=== PATIENT | female | born 1995 | race African-American/Black ===

== ENCOUNTER 2018-01-29 22:42 | Emergency (ER) | payer OTHER ==
[2018-01-29] MEDS ORDERED: ONDANSETRON 4 MG/2 ML VIAL ONE (23:18)
[2018-01-29] MEDS ORDERED: NA CHLORIDE 0.9% 1,000 ML ONE (23:18)
[2018-01-29] MEDS ORDERED: METOCLOPRAMIDE 10 MG/2mL INJ ONE (23:18)
[2018-01-29 23:33] LABS: Absolute Lymphocytes (CBC) 0.4 K/uL (0.7-4.9); Absolute Monocytes 0.4 K/uL (0.1-1.3); Absolute Neutrophil 7.4 K/uL (1.8-8.0); Basophils % 0.2 % (0-1.3); Eosinophils % 0.5 % (0-4.4); Hematocrit 34.1 % (36.0-45.0); Lymphocytes % 5.1 % (15.3-44.8); MCH 22.1 pg (27.0-35.0); MCV 69.9 fL (80-100); MPV 8.5 fL (7.6-11.3); RBC Red Blood Cell Count 4.87 M/uL (3.86-4.86)
[2018-01-29 23:48] LABS: Urine Blood NEGATIVE (NEG); Urine Glucose NEGATIVE (NEG); Urine Protein 1+ (NEG)
[2018-01-29 23:50] LABS: ALT/SGPT 16 U/L (12-78); AST/SGOT 16 U/L (15-37); Albumin 3.7 g/dL (3.4-5.0); Alkaline Phosphatase 82 U/L (45-117); Amylase Level 62 U/L (25-115); BUN Blood Urea Nitrogen 18 mg/dL (7-18); Bicarbonate 26 mmol/L (21-32); Bilirubin Direct < 0.1 mg/dL (0-0.2); Bilirubin Total 0.5 mg/dL (0.2-1.0); Glucose Level 108 mg/dL (74-106); Lipase 69 U/L (73-393); Potassium 3.1 mmol/L (3.5-5.1); Protein, Total 8.1 g/dL (6.4-8.2); Sodium Level 138 mmol/L (136-145)
[2018-01-30 00:20] LABS: Urine Bacteria <20 /HPF (<20); Urine Culture Reflex Order NOT NEEDED; Urine RBC <5 /HPF (NONE SEEN)
--- NOTE | 2018-01-30 00:27 | ER ---
Nurse's Notes [facility] Name: Cheyanne Lopes Age: 22 yrs Sex: Female : 1995 Arrival Date: 01/29/2018 Time: 22:48 Bed 20 Private MD: Diagnosis: Vomiting, unspecified;Diarrhea, unspecified;Abdominal tenderness;Fever, unspecified Presentation: 01/29 23:07 Presenting complaint: Patient states: I BEEN THROWING UP, FEVER, POOPING, EVERYTHING, bp FOR THREE DAYS. Transition of care: patient was not received from another setting of care. Onset of symptoms is unknown. Risk Assessment: Do you want to hurt yourself or someone else? Patient reports no desire to harm self or others. Initial Sepsis Screen: Does the patient meet any 2 criteria? HR > 90 bpm. No. Patient's initial sepsis screen is negative. Does the patient have a suspected source of infection? No. Patient's initial sepsis screen is negative. Care prior to arrival: None. 23:07 Method Of Arrival: Ambulatory bp 23:07 Acuity: GERI 3 bp Triage Assessment: 23:09 General: Appears distressed, comfortable, ill, slender, Behavior is calm, cooperative, bp appropriate for age. Pain: Complains of pain in abdomen. EENT: No deficits noted. Neuro: Level of Consciousness is awake, alert, obeys commands, Oriented to person, place, time, situation, Appropriate for age. Cardiovascular: No deficits noted. Respiratory: Airway is patent Respiratory effort is even, unlabored, Respiratory pattern is regular, symmetrical. GI: Reports diarrhea, nausea, vomiting. : No signs and/or symptoms were reported regarding the genitourinary system. Derm: No deficits noted. Musculoskeletal: Circulation, motion, and sensation intact. Range of motion: intact in all extremities. 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 - Social history:: Smoking status: unknown. - Ebola Screening: : Patient negative for fever greater than or equal to 101.5 degrees Fahrenheit, and additional compatible Ebola Virus Disease symptoms Patient denies exposure to infectious person Patient denies travel to an Ebola-affected area in the 21 days before illness onset No symptoms or risks identified at this time. - Family history:: not pertinent. Screenin:13 Abuse screen: Denies threats or abuse. Denies injuries from another. Nutritional bp screening: No deficits noted. Tuberculosis screening: No symptoms or risk factors identified. Fall Risk None identified. Assessment: 23:13 General: SEE TRIAGE NOTE. bp 01/30 01:16 Reassessment: PT D/C HOME AMBULATORY WITH FAMILY, DX WITH NONSPECIFIC NAUSEA AND bp VOMITING. Vital Signs: 01/29 23:09 BP 125 / 58; Pulse 100; Resp 16; Temp 100.2; Pulse Ox 99% ; Weight 74.84 kg; Height 5 bp ft. 6 in. (167.64 cm); 01/30 01:15 BP 98 / 57; Pulse 97; Resp 16; Pulse Ox 100% ; bp 01/29 23:09 Body Mass Index 26.63 (74.84 kg, 167.64 cm) bp ED Course: 01/29 22:48 Patient arrived in ED. es 22:52 Zuhair Perdue MD is Attending Physician. nicole 22:55 Jett Yuan, RN is Primary Nurse. bp 23:08 Triage completed. bp 23:09 Arm band placed on. bp 23:13 Patient has correct armband on for positive identification. Bed in low position. Call bp light in reach. Side rails up X2. Adult w/ patient. 23:24 Inserted saline lock: 20 gauge in right antecubital area, using aseptic technique. bp Blood collected. 01/30 01:16 No provider procedures requiring assistance completed. IV discontinued, intact, bp bleeding controlled, No redness/swelling at site. Pressure dressing applied. Administered Medications: 01/29 23:23 Drug: NS 0.9% 1000 ml Route: IV; Rate: 1 bolus; Site: right antecubital; bp 23:24 Drug: Zofran 4 mg Route: IVP; Site: right antecubital; bp 01/30 00:24 Follow up: Response: Marked relief of symptoms bp 01/29 23:24 Drug: Reglan 10 mg Route: IVP; Site: right antecubital; bp 01/30 00:26 Follow up: Response: Nausea is decreased bp 00:41 Drug: NS 0.9% 1000 ml Route: IV; Rate: 1 bolus; Site: right antecubital; bp 01:17 Follow up: IV Status: Completed infusion; IV Intake: 1000ml bp 00:41 Drug: Tylenol 650 mg Route: PO; bp 01:17 Follow up: Response: No adverse reaction bp 00:42 Drug: Cipro 400 mg Volume: 200 ml; Route: IVPB; Infused Over: 60 mins; Site: right bp antecubital; 01:17 Follow up: IV Status: Completed infusion; IV Intake: 200ml bp Intake: 01:17 IV: 1000ml; Total: 1000ml. bp 01:17 IV: 200ml; Total: 1200ml. bp Outcome: 00:26 Discharge ordered by . nicole 01:20 Discharged to home ambulatory, with family. bp 01:20 Condition: stable 01:20 Discharge instructions given to patient, Instructed on discharge instructions, follow up and referral plans. medication usage, Demonstrated understanding of instructions, follow-up care, medications, Prescriptions given X 2. 01:20 Patient left the ED. bp Signatures: Zuhair Perdue MD MD cha Salyer, Edna es Peltier, Brian, RN RN bp
--- NOTE | 2018-01-30 00:27 | EDPHYS ---
Physician Documentation [facility] Name: Cheyanne Lopes Age: 22 yrs Sex: Female : 1995 Arrival Date: 01/29/2018 Time: 22:48 Bed 20 Private MD: ED Physician Zuhair Perdue HPI: 01/30 00:20 This 22 yrs old Black Female presents to ER via Ambulatory with complaints of Diarrhea, nicole Vomiting, Fever. 00:20 The patient presents to the emergency department with nausea, vomiting, diarrhea, nicole abdominal pain, of the right upper quadrant, left upper quadrant, right lower quadrant and left lower quadrant. Onset: The symptoms/episode began/occurred 2 day(s) ago. Possible causes: antibiotics. Possible causes: unknown. The symptoms are aggravated by food , The symptoms are alleviated by remaining still. Severity of symptoms: At their worst the symptoms were mild moderate in the emergency department the symptoms are unchanged. The patient has not experienced similar symptoms in the past. 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 - Social history:: Smoking status: unknown. - Ebola Screening: : Patient negative for fever greater than or equal to 101.5 degrees Fahrenheit, and additional compatible Ebola Virus Disease symptoms Patient denies exposure to infectious person Patient denies travel to an Ebola-affected area in the 21 days before illness onset No symptoms or risks identified at this time. - Family history:: not pertinent. ROS: 01/30 00:20 Constitutional: Negative for fever, chills, and weight loss, Eyes: Negative for injury, nicole pain, redness, and discharge, ENT: Negative for injury, pain, and discharge, Neck: Negative for injury, pain, and swelling, Cardiovascular: Negative for chest pain, palpitations, and edema, Respiratory: Negative for shortness of breath, cough, wheezing, and pleuritic chest pain, Back: Negative for injury and pain, : Negative for injury, bleeding, discharge, and swelling, MS/Extremity: Negative for injury and deformity, Skin: Negative for injury, rash, and discoloration, Neuro: Negative for headache, weakness, numbness, tingling, and seizure, Psych: Negative for depression, anxiety, suicide ideation, homicidal ideation, and hallucinations, Allergy/Immunology: Negative for hives, rash, and allergies, Endocrine: Negative for neck swelling, polydipsia, polyuria, polyphagia, and marked weight changes, Hematologic/Lymphatic: Negative for swollen nodes, abnormal bleeding, and unusual bruising. Abdomen/GI: Positive for abdominal pain, nausea and vomiting, nausea, vomiting, diarrhea, abdominal cramps, of the right upper quadrant, left upper quadrant, right lower quadrant and left lower quadrant. Exam: 00:20 Constitutional: This is a well developed, well nourished patient who is awake, alert, nicole and in no acute distress. Head/Face: Normocephalic, atraumatic. Eyes: Pupils equal round and reactive to light, extra-ocular motions intact. Lids and lashes normal. Conjunctiva and sclera are non-icteric and not injected. Cornea within normal limits. Periorbital areas with no swelling, redness, or edema. ENT: Nares patent. No nasal discharge, no septal abnormalities noted. Tympanic membranes are normal and external auditory canals are clear. Oropharynx with no redness, swelling, or masses, exudates, or evidence of obstruction, uvula midline. Mucous membranes moist. Neck: Trachea midline, no thyromegaly or masses palpated, and no cervical lymphadenopathy. Supple, full range of motion without nuchal rigidity, or vertebral point tenderness. No Meningismus. Chest/axilla: Normal chest wall appearance and motion. Nontender with no deformity. No lesions are appreciated. Cardiovascular: Regular rate and rhythm with a normal S1 and S2. No gallops, murmurs, or rubs. Normal PMI, no JVD. No pulse deficits. Respiratory: Lungs have equal breath sounds bilaterally, clear to auscultation and percussion. No rales, rhonchi or wheezes noted. No increased work of breathing, no retractions or nasal flaring. Back: No spinal tenderness. No costovertebral tenderness. Full range of motion. Female : Normal external genitalia. Skin: Warm, dry with normal turgor. Normal color with no rashes, no lesions, and no evidence of cellulitis. MS/ Extremity: Pulses equal, no cyanosis. Neurovascular intact. Full, normal range of motion. Neuro: Awake and alert, GCS 15, oriented to person, place, time, and situation. Cranial nerves II-XII grossly intact. Motor strength 5/5 in all extremities. Sensory grossly intact. Cerebellar exam normal. Normal gait. Psych: Awake, alert, with orientation to person, place and time. Behavior, mood, and affect are within normal limits. 00:20 Abdomen/GI: Inspection: abdomen appears normal, Bowel sounds: hyperactive, Palpation: mild abdominal tenderness, in all quadrants, Liver: no appreciated palpable abnormalities, Hernia: not appreciated. Vital Signs: 01/29 23:09 BP 125 / 58; Pulse 100; Resp 16; Temp 100.2; Pulse Ox 99% ; Weight 74.84 kg; Height 5 bp ft. 6 in. (167.64 cm); 01/30 01:15 BP 98 / 57; Pulse 97; Resp 16; Pulse Ox 100% ; bp 01/29 23:09 Body Mass Index 26.63 (74.84 kg, 167.64 cm) bp MDM: 01/29 22:52 Patient medically screened. [facility] 01/30 00:23 Data reviewed: vital signs, nurses notes, lab test result(s), CBC, electrolytes, [facility] hepatic panel, urinalysis. 01/29 23:12 Order name: Amylase, Serum; Complete Time: 00:18 bp 01/29 23:12 Order name: Basic Metabolic Panel; Complete Time: 00:18 bp 01/29 23:12 Order name: CBC with Diff bp 01/29 23:12 Order name: Creatinine for Radiology; Complete Time: 00:18 bp 01/29 23:12 Order name: Hepatic Function; Complete Time: 00:18 bp 01/29 23:12 Order name: Lipase; Complete Time: 00:18 bp 01/29 23:12 Order name: Urine Microscopic Only bp 01/29 23:36 Order name: Urine Dipstick--Ancillary (enter results); Complete Time: 00:18 eb 01/29 23:36 Order name: Urine --Ancillary (enter results); Complete Time: 00:18 eb 01/30 01:16 Order name: CBC Smear Scan EDMS 01/29 23:12 Order name: Urine Test (obtain specimen); Complete Time: 23:24 bp 01/29 23:12 Order name: IV Saline Lock; Complete Time: 23:24 bp 01/29 23:12 Order name: Labs collected and sent; Complete Time: 23:24 bp 01/29 23:12 Order name: Urine Dipstick-Ancillary (obtain specimen); Complete Time: :24 bp 01/30 00:24 Order name: PO challenge: po juice; Complete Time: 00:42 nicole Administered Medications: 01/29 23:23 Drug: NS 0.9% 1000 ml Route: IV; Rate: 1 bolus; Site: right antecubital; bp 23:24 Drug: Zofran 4 mg Route: IVP; Site: right antecubital; bp 01/30 00:24 Follow up: Response: Marked relief of symptoms bp 01/29 23:24 Drug: Reglan 10 mg Route: IVP; Site: right antecubital; bp 01/30 00:26 Follow up: Response: Nausea is decreased bp 00:41 Drug: NS 0.9% 1000 ml Route: IV; Rate: 1 bolus; Site: right antecubital; bp 01:17 Follow up: IV Status: Completed infusion; IV Intake: 1000ml bp 00:41 Drug: Tylenol 650 mg Route: PO; bp 01:17 Follow up: Response: No adverse reaction bp 00:42 Drug: Cipro 400 mg Volume: 200 ml; Route: IVPB; Infused Over: 60 mins; Site: right bp antecubital; 01:17 Follow up: IV Status: Completed infusion; IV Intake: 200ml bp Disposition: 01/30/18 00:26 Discharged to Home. Impression: Vomiting, unspecified, Diarrhea, unspecified, Abdominal tenderness, Fever, unspecified. - Condition is Stable. - Discharge Instructions: Abdominal Pain, Adult, Food Choices to Help Relieve Diarrhea, Adult, Diarrhea, Fever, Adult, Nausea and Vomiting, Nausea and Vomiting, [id number], Abdominal Pain, Adult, [id number], Fever, Adult, [id number]. - Prescriptions for Zofran 4 mg Oral Tablet - take 1 tablet by ORAL route every 12 hours As needed; 14 tablet. Cipro 500 mg Oral Tablet - take 1 tablet by ORAL route every 12 hours for 5 days; 10 tablet. - Medication Reconciliation Form, Thank You Letter, Antibiotic Education, Prescription Opioid Use, Work release form form. - Follow up: Private Physician; When: 2 - 3 days; Reason: Recheck today's complaints, Continuance of care, Re-evaluation by your physician. - Problem is new. - Symptoms have improved. Signatures: Dispatcher [employer] EDZuhair Taylor MD MD cha Peltier, Brian, RN RN bp Corrections: (The following items were deleted from the chart) 01:20 00:26 01/30/2018 00:26 Discharged to Home. Impression: Vomiting, unspecified; Diarrhea, bp unspecified; Abdominal tenderness; Fever, unspecified. Condition is Stable. Forms are Medication Reconciliation Form, Thank You Letter, Antibiotic Education, Prescription Opioid Use. Follow up: Private Physician; When: 2 - 3 days; Reason: Recheck today's complaints, Continuance of care, Re-evaluation by your physician. Problem is new. Symptoms have improved. nicole
[2018-01-30] MEDS ORDERED: CIPROFLOXACIN 400mg IV 400 MG/200 ML BAG IV ONE (00:35)
[2018-01-30] MEDS ORDERED: ACETAMINOPHEN 325 MG TABLET ONE (00:35)
[2018-01-30] MEDS ORDERED: NA CHLORIDE 0.9% 1,000 ML ONE (00:36)
[2018-01-30 01:15] LABS: Blood Morphology Comment NOTED (NOT SEEN); Hypochromasia 1+; Platelet Estimate ADEQ; Urine White Blood Cell Casts OK
[2018-01-30 03:19] VITALS: TEMP 100.2
[2018-01-30 03:20] VITALS: BP 98/57; O2SAT 100
== END 2018-01-30 01:20 | disposition home or self-care (01) ==
LOC: ER 22:42
DX: R11.10 Vomiting, unspecified (principal); R19.7 Diarrhea, unspecified; R50.9 Fever, unspecified; R10.819 Abdominal tenderness, unspecified site
CPT/HCPCS: 36415; 80048; 80076; 81003; 81015; 81025; 82150; 83690; 85025; 96361; 96365; 96375; 99284; J0744; J2405; J2765; J7030

== ENCOUNTER 2018-10-19 12:29 | Emergency (ER) | payer SELFPAY ==
--- NOTE | 2018-10-19 14:31 | ER ---
Nurse's Notes [facility] Name: Cheyanne Lopes Age: 23 yrs Sex: Female : 1995 Arrival Date: 10/19/2018 Time: 12:34 Bed 13 Private MD: None, None Diagnosis: Otitis media, unspecified, left ear;Influenza due to identified novel influenza A virus Presentation: 10/19 12:50 Presenting complaint: Patient states: Fever, body aches, cough, sore throat x 4 days, ph TMAX 101.2, reports being exposed to flu recently, denies N/V/D. Transition of care: patient was not received from another setting of care. Onset of symptoms was October 19, 2018. Risk Assessment: Do you want to hurt yourself or someone else? Patient reports no desire to harm self or others. Initial Sepsis Screen: Does the patient meet any 2 criteria? No. Patient's initial sepsis screen is negative. Does the patient have a suspected source of infection? No. Patient's initial sepsis screen is negative. Care prior to arrival: Medication(s) given: Tylenol, at 1100. 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 - Social history:: Smoking status: Patient/guardian denies using tobacco. - Ebola Screening: : No symptoms or risks identified at this time. Screenin:19 Abuse screen: Denies threats or abuse. Nutritional screening: No deficits noted. tw2 Tuberculosis screening: No symptoms or risk factors identified. Fall Risk None identified. Assessment: 13:20 General: Appears in no apparent distress. Behavior is appropriate for age. Pain: tw2 Complains of pain in right ear and left ear. Neuro: Level of Consciousness is awake, alert, obeys commands, Oriented to person, place, time, situation. Cardiovascular: Capillary refill < 3 seconds Patient's skin is warm and dry. Respiratory: Reports cough that is Airway is patent Respiratory effort is even, unlabored, Respiratory pattern is regular, symmetrical. GI: No signs and/or symptoms were reported involving the gastrointestinal system. : No signs and/or symptoms were reported regarding the genitourinary system. EENT: Reports nasal congestion nasal discharge pain in left ear and right ear. Musculoskeletal: Range of motion: intact in all extremities. 15:06 Reassessment: Patient appears in no apparent distress at this time. No changes from tw2 previously documented assessment. Patient and/or family updated on plan of care and expected duration. Pain level reassessed. Patient is alert, oriented x 3, equal unlabored respirations, skin warm/dry/pink. Vital Signs: 12:52 BP 133 / 75; Pulse 118; Resp 22; Temp 99.6(O); Pulse Ox 100% on R/A; Weight 70.76 kg; ph Height 5 ft. 6 in. (167.64 cm); 14:41 BP 121 / 70; Pulse 134; Resp 17; Temp 99.2; Pulse Ox 100% on R/A; mh5 15:07 Pulse 111; Resp 19; Pulse Ox 100% on R/A; tw2 12:52 Body Mass Index 25.18 (70.76 kg, 167.64 cm) ph ED Course: 12:34 Patient arrived in ED. mr 12:34 None, None is Private Physician. mr 12:47 [facility]ila Bowles [facility]C [facility]. kb 12:47 Zuhair Perdue MD is Attending Physician. kb 12:51 Triage completed. ph 12:52 Arm band placed on. ph 13:15 Joanna Adler, RN is Primary Nurse. tw2 13:19 Bed in low position. Call light in reach. Adult w/ patient. Pulse ox on. NIBP on. tw2 15:07 No provider procedures requiring assistance completed. Patient did not have IV access tw2 during this emergency room visit. Administered Medications: 14:52 Drug: Motrin 600 mg Route: PO; tw2 15:08 Follow up: Response: No adverse reaction tw2 Outcome: 14:30 Discharge ordered by . kb 15:07 Discharged to home ambulatory. tw2 15:07 Condition: stable 15:07 Discharge instructions given to patient, Instructed on discharge instructions, follow up and referral plans. medication usage, Demonstrated understanding of instructions, follow-up care, medications, Prescriptions given X 1. 15:08 Patient left the ED. tw2 Signatures: Tila Bowles, JESE SCOTT-Milvia Tinoco mr Tricia Santos RN RN Joanna Adler RN RN 2 Gwen Smalls [facility]
--- NOTE | 2018-10-19 14:31 | EDPHYS ---
Physician Documentation [facility] Name: Cheyanne Lopes Age: 23 yrs Sex: Female : 1995 Arrival Date: 10/19/2018 Time: 12:34 Bed 13 Private MD: None, None ED Physician Zuhair Perdue HPI: 10/19 14:38 This 23 yrs old Black Female presents to ER via Ambulatory with complaints of Flu kb Symptoms. 14:38 The patient or guardian reports cough, that is intermittent, described as moderate, kb with no sputum, flu symptoms, arthralgias, low-grade fever, myalgias. Onset: The symptoms/episode began/occurred 3 day(s) ago. Severity of symptoms: At their worst the symptoms were moderate, in the emergency department the symptoms are unchanged. Modifying factors: The symptoms are alleviated by nothing, the symptoms are aggravated by nothing. Associated signs and symptoms: Pertinent positives: earache, fever, rhinorrhea, Pertinent negatives: chest pain, diarrhea, nausea, sore throat, vomiting. The patient has not experienced similar symptoms in the past. The patient has not recently seen a physician. HOME HEALTH CLINICAL LIAISON: 12:52 LMP 10/03/2018 ph Historical: - Allergies: 12:52 No Known Allergies; ph - Home Meds: 12:52 Seroquel Oral [Active]; ph - PMHx: 12:52 Depression; ph - PSHx: 12:52 None; ph - Immunization history:: Adult Immunizations unknown. - Social history:: Smoking status: Patient/guardian denies using tobacco. - Ebola Screening: : No symptoms or risks identified at this time. ROS: 14:37 Cardiovascular: Negative for chest pain, palpitations, and edema, Abdomen/GI: Negative kb for abdominal pain, nausea, vomiting, diarrhea, and constipation, Back: Negative for injury and pain, MS/Extremity: Negative for injury and deformity, Skin: Negative for injury, rash, and discoloration, Neuro: Negative for headache, weakness, numbness, tingling, and seizure. 14:37 Constitutional: Positive for body aches, chills, fatigue, fever, malaise, Negative for poor PO intake, weight loss. 14:37 ENT: Positive for ear pain, rhinorrhea, sore throat. 14:37 Respiratory: Positive for cough, Negative for dyspnea on exertion, hemoptysis, orthopnea, pleurisy, shortness of breath, sputum production, wheezing. Exam: 14:36 Constitutional: This is a well developed, well nourished patient who is awake, alert, kb and in no acute distress. Head/Face: Normocephalic, atraumatic. Neck: Trachea midline, no thyromegaly or masses palpated, and no cervical lymphadenopathy. Supple, full range of motion without nuchal rigidity, or vertebral point tenderness. No Meningismus. Chest/axilla: Normal chest wall appearance and motion. Nontender with no deformity. No lesions are appreciated. Cardiovascular: Regular rate and rhythm with a normal S1 and S2. No gallops, murmurs, or rubs. Normal PMI, no JVD. No pulse deficits. Abdomen/GI: Soft, non-tender, with normal bowel sounds. No distension or tympany. No guarding or rebound. No evidence of tenderness throughout. Back: No spinal tenderness. No costovertebral tenderness. Full range of motion. Skin: Warm, dry with normal turgor. Normal color with no rashes, no lesions, and no evidence of cellulitis. MS/ Extremity: Pulses equal, no cyanosis. Neurovascular intact. Full, normal range of motion. Neuro: Awake and alert, GCS 15, oriented to person, place, time, and situation. Cranial nerves II-XII grossly intact. Motor strength 5/5 in all extremities. Sensory grossly intact. Cerebellar exam normal. Normal gait. 14:36 ENT: External ear(s): are unremarkable, Ear canal(s): are normal, TM's: bulging, on the left, erythema, that is moderate, on the left, Nose: is normal, Posterior pharynx: is normal. Vital Signs: 12:52 BP 133 / 75; Pulse 118; Resp 22; Temp 99.6(O); Pulse Ox 100% on R/A; Weight 70.76 kg; ph Height 5 ft. 6 in. (167.64 cm); 14:41 BP 121 / 70; Pulse 134; Resp 17; Temp 99.2; Pulse Ox 100% on R/A; mh5 15:07 Pulse 111; Resp 19; Pulse Ox 100% on R/A; tw2 12:52 Body Mass Index 25.18 (70.76 kg, 167.64 cm) ph MDM: 13:15 Patient medically screened. kb 14:29 Data reviewed: vital signs, nurses notes. Data interpreted: Pulse oximetry: on room air kb is 100 %. Interpretation: normal. Counseling: I had a detailed discussion with the patient and/or guardian regarding: the historical points, exam findings, and any diagnostic results supporting the discharge/admit diagnosis, lab results, the need for outpatient follow up, a family practitioner, to return to the emergency department if symptoms worsen or persist or if there are any questions or concerns that arise at home. 10/19 12:53 Order name: Flu; Complete Time: 14:11 ph 10/19 12:53 Order name: Strep; Complete Time: 14:24 ph 10/19 14:22 Order name: Throat Culture EDMS Administered Medications: 14:52 Drug: Motrin 600 mg Route: PO; tw2 15:08 Follow up: Response: No adverse reaction tw2 Disposition: 10/20 09:37 Co-signature as Attending Physician, Zuhair Perdue MD I agree with the assessment and [facility] plan of care. Disposition: 10/19/18 14:30 Discharged to Home. Impression: Otitis media, unspecified, left ear, Influenza due to identified novel influenza A virus. - Condition is Stable. - Discharge Instructions: Otitis Media, Adult, [id number], Influenza, Adult, [id number]. - Prescriptions for Amoxicillin 875 mg Oral Tablet - take 1 tablet by ORAL route every 12 hours for 10 days; 20 tablet. - Medication Reconciliation Form, Thank You Letter, Antibiotic Education, Prescription Opioid Use, Work release form form. - Follow up: Emergency Department; When: As needed; Reason: Worsening of condition. Follow up: Private Physician; When: 2 - 3 days; Reason: Recheck today's complaints, Continuance of care, Re-evaluation by your physician. Signatures: Dispatcher [employer] EDMS Tila Bowles, Zuhair Mendez MD MD cha Hall, Patricia, RN RN Joanna Adler RN RN tw2 Corrections: (The following items were deleted from the chart) 10/19 15:08 14:30 10/19/2018 14:30 Discharged to Home. Impression: Otitis media, unspecified, left tw2 ear; Influenza due to identified novel influenza A virus. Condition is Stable. Discharge Instructions: Otitis Media, Adult, [id number]. Prescriptions for Amoxicillin 875 mg Oral Tablet - take 1 tablet by ORAL route every 12 hours for 10 days; 20 tablet. and Forms are Work release form, Medication Reconciliation Form, Thank You Letter, Antibiotic Education, Prescription Opioid Use. Follow up: Emergency Department; When: As needed; Reason: Worsening of condition. Follow up: Private Physician; When: 2 - 3 days; Reason: Recheck today's complaints, Continuance of care, Re-evaluation by your physician. kb
[2018-10-19] MEDS ORDERED: IBUPROFEN 400 MG TAB ONE (15:00)
[2018-10-19] MEDS ORDERED: IBUPROFEN 200 MG TAB PO ONE (15:00)
[2018-10-19 15:12] VITALS: O2SAT 100
[2018-10-19 15:13] VITALS: BP 121/70; TEMP 99.2
== END 2018-10-19 15:08 | disposition home or self-care (01) ==
LOC: ER 12:29
DX: H66.92 Otitis media, unspecified, left ear (principal); J10.1 Influenza due to other identified influenza virus with other respiratory manifestations; F32.9 Major depressive disorder, single episode, unspecified
CPT/HCPCS: 87070; 87081; 87804; 99283

== ENCOUNTER 2018-10-22 12:07 | Emergency (ER) | payer SELFPAY ==
[2018-10-22] MEDS ORDERED: OSELTAMIVIR 75 MG CAP ONE (14:48)
[2018-10-22] MEDS ORDERED: AZITHROMYCIN 250 MG TAB ONE (14:49)
[2018-10-22] MEDS ORDERED: ACETAMINOPHEN 325 MG TABLET ONE (14:49)
--- NOTE | 2018-10-22 14:55 | ER ---
Nurse's Notes [facility] Name: Cheyanne Lopes Age: 23 yrs Sex: Female : 1995 Arrival Date: 10/22/2018 Time: 12:08 Bed 26 Private MD: None, None Diagnosis: Influenza due to identified novel influenza A virus;Fever, unspecified;Bronchitis, not specified as acute or chronic Presentation: 10/22 12:17 Presenting complaint: Patient states: I was seen and treated here for the flu, was sg instructed that if I didn't feel any better after a few days to return to the emergency room for re evaluation, pt reports is not feeling better, was started on abx amoxicillin for upper resp infection as well, now has developed severe ear pain in the left ear, right ear hurts as well but left ear is worse. Transition of care: patient was not received from another setting of care. Onset of symptoms was October 22, 2018. Risk Assessment: Do you want to hurt yourself or someone else? Patient reports no desire to harm self or others. Initial Sepsis Screen: Does the patient meet any 2 criteria? No. Patient's initial sepsis screen is negative. Does the patient have a suspected source of infection? No. Patient's initial sepsis screen is negative. Care prior to arrival: None. 12:17 Method Of Arrival: Ambulatory 12:17 Acuity: GERI 4 sg LINE FISHER: 14:00 LMP 10/03/2018 ca1 Historical: - Allergies: 12:19 No Known Allergies; sg - Home Meds: 12:19 Seroquel Oral [Active]; sg - PMHx: 12:19 Depression; sg - PSHx: 12:19 None; sg - Immunization history:: Adult Immunizations up to date. - Social history:: Smoking status: Patient/guardian denies using tobacco. - Ebola Screening: : Patient negative for fever greater than or equal to 101.5 degrees Fahrenheit, and additional compatible Ebola Virus Disease symptoms Patient denies exposure to infectious person Patient denies travel to an Ebola-affected area in the 21 days before illness onset No symptoms or risks identified at this time. - Family history:: not pertinent. Screenin:07 Abuse screen: Denies threats or abuse. Denies injuries from another. Nutritional ca1 screening: No deficits noted. Tuberculosis screening: No symptoms or risk factors identified. Fall Risk None identified. Assessment: 13:07 General: Appears in no apparent distress. comfortable, Behavior is calm, cooperative, ca1 appropriate for age. Pain: Complains of pain in left ear Pain radiates to left side of the face Pain currently is 8 out of 10 on a pain scale. Pain began 1 day ago. Neuro: Level of Consciousness is awake, alert, obeys commands, Oriented to person, place, time, situation. Cardiovascular: Heart tones S1 S2 present Capillary refill < 3 seconds Patient's skin is warm and dry. Respiratory: Reports cough that is productive, Airway is patent Respiratory effort is even, unlabored, Respiratory pattern is regular, symmetrical, Breath sounds are clear bilaterally. GI: No deficits noted. No signs and/or symptoms were reported involving the gastrointestinal system. : No deficits noted. No signs and/or symptoms were reported regarding the genitourinary system. EENT: Tympanic membrane not visualized left ear and right ear Ear canal clear on left ear and right ear Reports nasal congestion nasal discharge that is watery. Derm: Skin is intact, is healthy with good turgor, Skin is pink, warm \T\ dry. Musculoskeletal: Circulation, motion, and sensation intact. Capillary refill < 3 seconds. 14:00 Reassessment: Patient appears in no apparent distress at this time. Patient and/or ca1 family updated on plan of care and expected duration. Pain level reassessed. Patient is alert, oriented x 3, equal unlabored respirations, skin warm/dry/pink. 14:55 Reassessment: Patient appears in no apparent distress at this time. Patient and/or ca1 family updated on plan of care and expected duration. Pain level reassessed. Patient is alert, oriented x 3, equal unlabored respirations, skin warm/dry/pink. Vital Signs: 12:11 BP 127 / 82; Pulse 111; Resp 17; Temp 99.0; Pulse Ox 100% on R/A; Pain 10/10; sg 13:07 BP 117 / 78; Pulse 89; Resp 19; Temp 100.2(O); Pulse Ox 100% ; ca1 14:00 BP 115 / 70; Pulse 86; Resp 19; Pulse Ox 100% on R/A; ca1 14:55 BP 109 / 66; Pulse 81; Resp 19; Pulse Ox 100% on R/A; ca1 15:30 Temp 98.9; ca1 ED Course: 12:08 Patient arrived in ED. dl4 12:08 None, None is Private Physician. dl4 12:17 Arm band placed on. 12:18 Triage completed. 13:03 Zuhair Perdue MD is Attending Physician. [facility] 13:07 Patient has correct armband on for positive identification. Bed in low position. Call ca1 light in reach. Side rails up X2. Pulse ox on. NIBP on. 13:30 Rosa Isela Magaña, RN is Primary Nurse. ca1 15:02 No provider procedures requiring assistance completed. Patient did not have IV access ca1 during this emergency room visit. Administered Medications: 14:41 Drug: Tylenol 650 mg Route: PO; ca1 15:30 Follow up: Temp 98.9; Response: No adverse reaction; Temperature is decreased ca1 14:41 Drug: Tamiflu 75 mg Route: PO; ca1 15:30 Follow up: Response: No adverse reaction ca1 14:41 Drug: Zithromax 500 mg Route: PO; ca1 15:30 Follow up: Response: No adverse reaction ca1 Outcome: 14:54 Discharge ordered by . [facility] 15:02 Discharged to home ambulatory. ca1 15:02 Condition: stable 15:02 Discharge instructions given to patient, Instructed on discharge instructions, follow up and referral plans. medication usage, Demonstrated understanding of instructions, follow-up care, medications, Prescriptions given X 2. 15:05 Patient left the ED. ca1 Signatures: Jonathan Ponce, RN RN Zuhair Perdue MD MD cha Luna, David dl4 Rosa Isela Magaña RN RN ca1
--- NOTE | 2018-10-22 14:55 | EDPHYS ---
Physician Documentation [facility] Name: Cheyanne Lopes Age: 23 yrs Sex: Female : 1995 Arrival Date: 10/22/2018 Time: 12:08 Bed 26 Private MD: None, None ED Physician Zuhair Perdue HPI: 10/22 14:27 This 23 yrs old Black Female presents to ER via Ambulatory with complaints of Flu nicole Symptoms. 14:27 fever cough, flu a 3 days ago. The patient or guardian reports cough, described as nicole mild. Onset: The symptoms/episode began/occurred 3 day(s) ago. Severity of symptoms: At their worst the symptoms were mild, in the emergency department the symptoms are unchanged. Modifying factors: The symptoms are alleviated by nothing, the symptoms are aggravated by nothing. Associated signs and symptoms: The patient has no apparent associated signs or symptoms. The patient has not experienced similar symptoms in the past. 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 - Social history:: Smoking status: Patient/guardian denies using tobacco. - Ebola Screening: : Patient negative for fever greater than or equal to 101.5 degrees Fahrenheit, and additional compatible Ebola Virus Disease symptoms Patient denies exposure to infectious person Patient denies travel to an Ebola-affected area in the 21 days before illness onset No symptoms or risks identified at this time. - Family history:: not pertinent. ROS: 14:27 Constitutional: Negative for fever, chills, and weight loss, Eyes: Negative for injury, nicole pain, redness, and discharge, ENT: Negative for injury, pain, and discharge, Neck: Negative for injury, pain, and swelling, Cardiovascular: Negative for chest pain, palpitations, and edema, Abdomen/GI: Negative for abdominal pain, nausea, vomiting, diarrhea, and constipation, Back: Negative for injury and pain, : Negative for injury, bleeding, discharge, and swelling, MS/Extremity: Negative for injury and deformity, Skin: Negative for injury, rash, and discoloration, Neuro: Negative for headache, weakness, numbness, tingling, and seizure, Psych: Negative for depression, anxiety, suicide ideation, homicidal ideation, and hallucinations, Allergy/Immunology: Negative for hives, rash, and allergies, Endocrine: Negative for neck swelling, polydipsia, polyuria, polyphagia, and marked weight changes, Hematologic/Lymphatic: Negative for swollen nodes, abnormal bleeding, and unusual bruising. 14:27 Respiratory: Positive for cough. Exam: 14:27 Constitutional: This is a well developed, well nourished patient who is awake, alert, nicole and in no acute distress. Head/Face: Normocephalic, atraumatic. Eyes: Pupils equal round and reactive to light, extra-ocular motions intact. Lids and lashes normal. Conjunctiva and sclera are non-icteric and not injected. Cornea within normal limits. Periorbital areas with no swelling, redness, or edema. ENT: Nares patent. No nasal discharge, no septal abnormalities noted. Tympanic membranes are normal and external auditory canals are clear. Oropharynx with no redness, swelling, or masses, exudates, or evidence of obstruction, uvula midline. Mucous membranes moist. Neck: Trachea midline, no thyromegaly or masses palpated, and no cervical lymphadenopathy. Supple, full range of motion without nuchal rigidity, or vertebral point tenderness. No Meningismus. Chest/axilla: Normal chest wall appearance and motion. Nontender with no deformity. No lesions are appreciated. Cardiovascular: Regular rate and rhythm with a normal S1 and S2. No gallops, murmurs, or rubs. Normal PMI, no JVD. No pulse deficits. Respiratory: Lungs have equal breath sounds bilaterally, clear to auscultation and percussion. No rales, rhonchi or wheezes noted. No increased work of breathing, no retractions or nasal flaring. Abdomen/GI: Soft, non-tender, with normal bowel sounds. No distension or tympany. No guarding or rebound. No evidence of tenderness throughout. Back: No spinal tenderness. No costovertebral tenderness. Full range of motion. Skin: Warm, dry with normal turgor. Normal color with no rashes, no lesions, and no evidence of cellulitis. MS/ Extremity: Pulses equal, no cyanosis. Neurovascular intact. Full, normal range of motion. Neuro: Awake and alert, GCS 15, oriented to person, place, time, and situation. Cranial nerves II-XII grossly intact. Motor strength 5/5 in all extremities. Sensory grossly intact. Cerebellar exam normal. Normal gait. Psych: Awake, alert, with orientation to person, place and time. Behavior, mood, and affect are within normal limits. Vital Signs: 12:11 BP 127 / 82; Pulse 111; Resp 17; Temp 99.0; Pulse Ox 100% on R/A; Pain 10/10; sg 13:07 BP 117 / 78; Pulse 89; Resp 19; Temp 100.2(O); Pulse Ox 100% ; ca1 14:00 BP 115 / 70; Pulse 86; Resp 19; Pulse Ox 100% on R/A; ca1 14:55 BP 109 / 66; Pulse 81; Resp 19; Pulse Ox 100% on R/A; ca1 15:30 Temp 98.9; ca1 MDM: 13:03 Patient medically screened. [facility] 10/22 14:33 Order name: PO challenge; Complete Time: 14:41 [facility] Administered Medications: 14:41 Drug: Tylenol 650 mg Route: PO; ca1 15:30 Follow up: Temp 98.9; Response: No adverse reaction; Temperature is decreased ca1 14:41 Drug: Tamiflu 75 mg Route: PO; ca1 15:30 Follow up: Response: No adverse reaction ca1 14:41 Drug: Zithromax 500 mg Route: PO; ca1 15:30 Follow up: Response: No adverse reaction ca1 Disposition: 10/22/18 14:54 Discharged to Home. Impression: Influenza due to identified novel influenza A virus, Fever, unspecified, Bronchitis, not specified as acute or chronic. - Condition is Stable. - Discharge Instructions: Acute Bronchitis, Adult, Influenza, Adult, Upper Respiratory Infection, Adult, Upper Respiratory Infection, Adult, [id number], Influenza, Adult, [id number], Cough, Adult. - Prescriptions for Zithromax Z- Hussain 250 mg Oral Tablet - take 1 tablet by ORAL route as directed for 5 days Day 1 - take two (2) tablets one time. Day 2, 3, 4 , 5 take one (1) tablet once daily.; 6 tablet. Tamiflu 75 mg Oral Capsule - take 1 tablet by ORAL route every 12 hours for 5 days; 10 tablet. - Medication Reconciliation Form, Thank You Letter, Antibiotic Education, Prescription Opioid Use, Work release form form. - Follow up: Private Physician; When: 2 - 3 days; Reason: Recheck today's complaints, Continuance of care, Re-evaluation by your physician. - Problem is new. - Symptoms have improved. Signatures: Dispatcher [employer] EDMS Jonathan Ponce RN RN sg Anderson, Corey, MD MD cha Acob, Cheryl, RN RN ca1 Corrections: (The following items were deleted from the chart) 15:05 14:54 10/22/2018 14:54 Discharged to Home. Impression: Influenza due to identified ca1 novel influenza A virus; Fever, unspecified; Bronchitis, not specified as acute or chronic. Condition is Stable. Discharge Instructions: Acute Bronchitis, Adult, Influenza, Adult, Upper Respiratory Infection, Adult, Upper Respiratory Infection, Adult, [id number], Influenza, Adult, [id number], Cough, Adult. Prescriptions for Zithromax Z-Hussain 250 mg Oral Tablet - take 1 tablet by ORAL route as directed for 5 days Day 1 - take two (2) tablets one time. Day 2, 3, 4 , 5 take one (1) tablet once daily.; 6 tablet, Tamiflu 75 mg Oral Capsule - take 1 tablet by ORAL route every 12 hours for 5 days; 10 tablet. and Forms are Medication Reconciliation Form, Thank You Letter, Antibiotic Education, Prescription Opioid Use. Follow up: Private Physician; When: 2 - 3 days; Reason: Recheck today's complaints, Continuance of care, Re-evaluation by your physician. Problem is new. Symptoms have improved. nicole
[2018-10-22 15:45] VITALS: TEMP 100.2; O2SAT 100
[2018-10-22 15:48] VITALS: BP 109/66
== END 2018-10-22 15:05 | disposition home or self-care (01) ==
LOC: ER 12:07
DX: J09.X2 Influenza due to identified novel influenza A virus with other respiratory manifestations (principal); J40 Bronchitis, not specified as acute or chronic
CPT/HCPCS: 99283

== ENCOUNTER 2019-01-11 16:39 | Emergency (ER) | payer SELFPAY ==
[2019-01-11 17:20] LABS: Absolute Lymphocytes (CBC) 1.7 K/uL (0.7-4.9); Absolute Monocytes 0.4 K/uL (0.1-1.3); Absolute Neutrophil 2.5 K/uL (1.8-8.0); Basophils % 0.3 % (0-1.3); Eosinophils % 0.9 % (0-4.4); Hematocrit 31.3 % (36.0-45.0); MPV 8.7 fL (7.6-11.3); Monocytes % 8.9 % (3.3-12.3)
[2019-01-11 17:34] LABS: Urine Blood NEGATIVE (NEG); Urine Glucose NEGATIVE (NEG); Urine Protein 1+ (NEG); Urine Specific Gravity 1.015 (1.005-1.030); Urine pH 7.5 (5.0-7.0)
[2019-01-11 17:37] LABS: ALT/SGPT 16 U/L (12-78); AST/SGOT 13 U/L (15-37); Albumin 3.4 g/dL (3.4-5.0); Alkaline Phosphatase 83 U/L (45-117); BUN Blood Urea Nitrogen 7 mg/dL (7-18); Bicarbonate 28 mmol/L (21-32); Bilirubin Direct 0.1 mg/dL (0-0.2); Bilirubin Total 0.3 mg/dL (0.2-1.0); Glucose Level 90 mg/dL (74-106); Lipase 77 U/L (73-393); Potassium 3.6 mmol/L (3.5-5.1); Protein, Total 7.2 g/dL (6.4-8.2); Sodium Level 143 mmol/L (136-145)
[2019-01-11] MEDS ORDERED: ONDANSETRON 4 MG/2 ML VIAL ONE (17:37)
[2019-01-11] MEDS ORDERED: NA CHLORIDE 0.9% 1,000 ML ONE (17:37)
[2019-01-11] MEDS ORDERED: MORPHINE 2 MG/ML SYR ONE (17:37)
[2019-01-11 17:46] LABS: Anisocytosis 1+; Blood Morphology Comment NOTED (NOT SEEN); Platelet Estimate ADEQ; Urine White Blood Cell Casts OK
[2019-01-11 17:47] LABS: Poikilocytosis 1+; Stomatocytes 1+; Target Cells 1+
[2019-01-11 17:57] LABS: Urine Bacteria <20 /HPF (<20); Urine Culture Reflex Order NOT NEEDED; Urine Mucus 2+ /HPF (NONE SEEN); Urine RBC <5 /HPF (NONE SEEN)
--- NOTE | 2019-01-11 18:28 | RAD REPORT ---
EXAM DESCRIPTION: CT - Abdomen Pelvis W Contrast - 01/11/2019 6:09 pm CLINICAL HISTORY: Abdominal pain . COMPARISON: 2016 TECHNIQUE: Computed axial tomography of the abdomen pelvis was obtained. 100 cc Isovue-300 was admin istered intravenously. Oral contrast was not requested which limits evaluation of bowel. All CT scans are performed using dose optimization technique as appropriate and may include automated exposure control or mA/KV adjustment according to patient size. FINDINGS: The liver, spleen, pancreas, adrenal and kidneys appear unremarkable. There is no evidence of diverticulitis. A normal appendix 2 centimeter left ovarian cyst with minimal free fluid IMPRESSION: 2 centimeter left ovarian cyst with minimal free fluid
--- NOTE | 2019-01-11 18:41 | ER ---
Nurse's Notes [facility] Name: Cheyanne Lopes Age: 23 yrs Sex: Female : 1995 Arrival Date: 01/11/2019 Time: 16:42 Bed 19 Private MD: Diagnosis: Other ovarian cysts;Mastodynia;Dysuria Presentation: 01/11 16:48 Presenting complaint: Patient states: I GOT THIS PAIN THAT GOES FROM MY BREASTS DOWN bp INTO MY STOMACH AND IT FEELS LIKE IT'S RIPPING ME APART. Transition of care: patient was not received from another setting of care. Onset of symptoms was January 09, 2019. Risk Assessment: Do you want to hurt yourself or someone else? Patient reports no desire to harm self or others. Initial Sepsis Screen: Does the patient meet any 2 criteria? No. Patient's initial sepsis screen is negative. Does the patient have a suspected source of infection? No. Patient's initial sepsis screen is negative. Care prior to arrival: None. 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 - Social history:: Smoking status: Patient/guardian denies using tobacco. - Ebola Screening: : No symptoms or risks identified at this time. Screenin:10 Abuse screen: Denies threats or abuse. Nutritional screening: No deficits noted. em Tuberculosis screening: No symptoms or risk factors identified. Fall Risk None identified. Assessment: 17:10 General: Appears in no apparent distress. comfortable, Behavior is calm, cooperative, em appropriate for age, Reports fever for 12-24 hours. Pain: Complains of pain in right lower quadrant and left lower quadrant Pain currently is 9 out of 10 on a pain scale. Pain began 2-3 days ago. Neuro: Level of Consciousness is awake, alert, obeys commands, Oriented to person, place, time, situation. Cardiovascular: Capillary refill < 3 seconds Patient's skin is warm and dry. Respiratory: Airway is patent Respiratory effort is even, unlabored, Respiratory pattern is regular, symmetrical. GI: Abdomen is flat, Bowel sounds present X 4 quads. Abd is soft X 4 quads Abdomen is tender to palpation in right lower quadrant and left lower quadrant Reports nausea. : Reports burning with urination, since x 1 week. Derm: Skin is intact, is healthy with good turgor, Skin is pink, warm \T\ dry. Musculoskeletal: Capillary refill < 3 seconds, Range of motion: intact in all extremities. 17:20 General: The previous assessment is accurate, call light remains within reach. ss 18:00 Reassessment: Patient appears in no apparent distress at this time. Patient and/or em family updated on plan of care and expected duration. Pain level reassessed. Patient is alert, oriented x 3, equal unlabored respirations, skin warm/dry/pink. Patient states feeling better. Patient states symptoms have improved. Vital Signs: 16:49 BP 115 / 64; Pulse 73; Resp 16; Temp 98.4; Pulse Ox 99% ; Weight 69.85 kg; Height 5 ft. bp 6 in. (167.64 cm); 18:18 BP 115 / 65; Pulse 60; Resp 17; Temp 98.0(O); Pulse Ox 100% on R/A; mh5 16:49 Body Mass Index 24.86 (69.85 kg, 167.64 cm) bp ED Course: 16:42 Patient arrived in ED. tw3 16:42 García Chamorro PA is PHCP. jmm 16:42 Zuhair Perdue MD is Attending Physician. m 16:49 Triage completed. bp 16:49 Arm band placed on. bp 16:58 Frank Fleming LVN is Primary Nurse. em 17:10 Patient has correct armband on for positive identification. Bed in low position. Call em light in reach. Pulse ox on. NIBP on. 17:10 Initial lab(s) drawn, by me, sent to lab. Inserted saline lock: 22 gauge in right em antecubital area, using aseptic technique. Blood collected. 18:06 CT completed. Patient tolerated procedure well. Patient moved back from CT. mw3 18:10 CT Abd/Pelvis - W/Contrast In Process Unspecified. EDMS 18:33 PIT CLERK WITH BREAST EXAMINE. mh5 18:39 Abilio Estrada MD is Referral Physician. jmm 19:01 IV discontinued, intact, bleeding controlled, No redness/swelling at site. Pressure em dressing applied. Administered Medications: 17:25 Drug: Zofran 4 mg Route: IVP; Site: right antecubital; 19:00 Follow up: Response: No adverse reaction; Nausea is decreased em 17:29 Drug: NS 0.9% 1000 ml Route: IV; Rate: 1 bolus; Site: right antecubital; 19:00 Follow up: IV Status: Completed infusion; IV Intake: 1000ml em 17:29 Drug: morphine 2 mg Route: IVP; Site: right antecubital; 19:00 Follow up: Response: No adverse reaction; Pain is decreased em Intake: 19:00 IV: 1000ml; Total: 1000ml. em Outcome: 18:40 Discharge ordered by . alayna 19:00 Discharged to home ambulatory. em 19:00 Condition: stable 19:00 Discharge instructions given to patient, Instructed on discharge instructions, follow up and referral plans. medication usage, Demonstrated understanding of instructions, follow-up care, medications, Prescriptions given X 2. 19:01 Patient left the ED. em Signatures: Dispatcher [employer] EDMS García Chamorro PA PA jmm Munoz, Edgar, FIELD TECHNICAL ASSISTANT FIELD TECHNICAL ASSISTANT em Shraddha Quintanilla, Gwen Deleon RN 5 Yefri, Lilliam 3 Jett Yuan RN RN Sandra Cool mw3
--- NOTE | 2019-01-11 18:41 | EDPHYS ---
Physician Documentation [facility] Name: Cheyanne Lopes Age: 23 yrs Sex: Female : 1995 Arrival Date: 01/11/2019 Time: 16:42 Bed 19 Private MD: ED Physician Zuhair Perdue HPI: 01/11 16:57 This 23 yrs old Black Female presents to ER via Ambulatory with complaints of Abdominal jmm Pain, Breast Problem. 16:57 The patient presents with abdominal pain in the left lower quadrant. Onset: The jmm symptoms/episode began/occurred gradually. The symptoms do not radiate. Associated signs and symptoms: Pertinent negatives: nausea and vomiting, diarrhea, fever. This is a 23 year old female with a history of depression that presents to the ED with complaints of lower abdominal pain which has been chronically intermittent worsening today. Patient denies vomiting or diarrhea. Patient denies fever. Patient also complains of ongoing bilateral breast pain which was initially evaluated by her OB but the patient has not received results from her mammogram. Patient denies redness or drainage. . 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 - Social history:: Smoking status: Patient/guardian denies using tobacco. - Ebola Screening: : No symptoms or risks identified at this time. ROS: 16:57 Constitutional: Negative for fever, chills, and weight loss, Cardiovascular: Negative jmm for chest pain, palpitations, and edema, Respiratory: Negative for shortness of breath, cough, wheezing, and pleuritic chest pain. 16:57 Back: Negative for injury and pain. 16:57 Abdomen/GI: Positive for abdominal pain. 16:57 : Positive for urinary symptoms. 16:57 : Positive for 16:57 All other systems are negative. Exam: 16:57 Head/Face: atraumatic. Eyes: EOMI, no conjunctival erythema appreciated ENT: Moist jmm Mucus Membranes Neck: Trachea midline, Supple 16:57 Cardiovascular: Regular rate and rhythm. No edema appreciated Respiratory: Normal respirations, no respiratory distress appreciated 16:57 Constitutional: The patient appears in no acute distress, alert, awake. 16:57 Chest/axilla: Breasts: abscess, not appreciated, cellulitis, is not appreciated, mass(es), that is small, in the left breast, that is freely movable, nipple discharge, is not appreciated, rash, is not appreciated. 16:57 Abdomen/GI: Inspection: abdomen appears normal, Bowel sounds: normal, Palpation: soft, mild abdominal tenderness, in the suprapubic area and left lower quadrant. 16:57 Back: ROM is normal. 16:57 Musculoskeletal/extremity: ROM: no acute changes. 16:57 Skin: Appearance: Color: normal in color. 16:57 Neuro: Orientation: is normal, Mentation: is normal, Memory: is normal. 16:57 Psych: Behavior/mood is pleasant, cooperative. Vital Signs: 16:49 BP 115 / 64; Pulse 73; Resp 16; Temp 98.4; Pulse Ox 99% ; Weight 69.85 kg; Height 5 ft. bp 6 in. (167.64 cm); 18:18 BP 115 / 65; Pulse 60; Resp 17; Temp 98.0(O); Pulse Ox 100% on R/A; mh5 16:49 Body Mass Index 24.86 (69.85 kg, 167.64 cm) bp MDM: 16:57 Patient medically screened. [facility] 18:38 Data reviewed: vital signs, nurses notes. Counseling: I had a detailed discussion with [facility] the patient and/or guardian regarding: the historical points, exam findings, and any diagnostic results supporting the discharge/admit diagnosis, lab results, radiology results, the need for outpatient follow up, to return to the emergency department if symptoms worsen or persist or if there are any questions or concerns that arise at home. 18:38 ED course: Ct reveals ovarian cyst. Patient is advised to follow up with ob for further [facility] evaluation of breast and pelvic pain. Patient is advised unable to rule out breast cancer without ob. Patient is advised to return to the ED if symptoms worsen. Patient understood and agrees with the plan of care. . 01/11 16:59 Order name: Basic Metabolic Panel [facility] 01/11 16:59 Order name: CBC with Diff; Complete Time: 17:56 [facility] 01/11 16:59 Order name: Creatinine for Radiology; Complete Time: 17:41 [facility] 01/11 16:59 Order name: Hepatic Function; Complete Time: 17:41 [facility] 01/11 16:59 Order name: Lipase; Complete Time: 17:41 [facility] 01/11 16:59 Order name: Basic Metabolic Panel; Complete Time: 17:41 [facility] 01/11 16:59 Order name: CT Abd/Pelvis - W/Contrast; Complete Time: 18:30 [facility] 01/11 17:20 Order name: Urine Microscopic Only; Complete Time: 17:58 em 01/11 17:23 Order name: CBC Smear Scan; Complete Time: 17:56 [facility] 01/11 17:24 Order name: Urine Dipstick--Ancillary (enter results); Complete Time: 17:34 bd 01/11 17:24 Order name: Urine --Ancillary (enter results); Complete Time: 17:34 02 16:59 Order name: IV Saline Lock; Complete Time: 17:14 [facility] 01/11 16:59 Order name: Labs collected and sent; Complete Time: 17:14 [facility] 01/11 16:59 Order name: Urine Dipstick-Ancillary (obtain specimen); Complete Time: 17:14 [facility] Administered Medications: 17:25 Drug: Zofran 4 mg Route: IVP; Site: right antecubital; ss 19:00 Follow up: Response: No adverse reaction; Nausea is decreased em 17:29 Drug: NS 0.9% 1000 ml Route: IV; Rate: 1 bolus; Site: right antecubital; ss 19:00 Follow up: IV Status: Completed infusion; IV Intake: 1000ml em 17:29 Drug: morphine 2 mg Route: IVP; Site: right antecubital; ss 19:00 Follow up: Response: No adverse reaction; Pain is decreased em Disposition: 01/12 07:53 Co-signature as Attending Physician, Zuhair Perdue MD I agree with the assessment and nicole plan of care. Disposition: 01/11/19 18:40 Discharged to Home. Impression: Other ovarian cysts, Mastodynia, Dysuria. - Condition is Stable. - Discharge Instructions: Dysuria, Ovarian Cyst, Breast Tenderness. - Prescriptions for Cephalexin 500 mg Oral Capsule - take 1 capsule by ORAL route every 12 hours for 10 days; 20 capsule. Ibuprofen 800 mg Oral Tablet - take 1 tablet by ORAL route every 12 hours As needed take with food; 20 tablet. - Medication Reconciliation Form, Thank You Letter, Antibiotic Education, Prescription Opioid Use form. - Follow up: Abilio Estrada MD; When: 2 - 3 days; Reason: Recheck today's complaints, Continuance of care, Re-evaluation by your physician. Signatures: Dispatcher [employer] EDZuhair Taylor MD MD cha Mickail, Joel, PA PA Frank Watters, DRIER FEEDER DRIER FEEDER em Shraddha Quintanilla RN RN ss Jett Yuan RN RN bp Corrections: (The following items were deleted from the chart) 01/11 19:01 18:40 01/11/2019 18:40 Discharged to Home. Impression: Other ovarian cysts; Mastodynia; em Dysuria. Condition is Stable. Forms are Medication Reconciliation Form, Thank You Letter, Antibiotic Education, Prescription Opioid Use. Follow up: Abilio Estrada; When: 2 - 3 days; Reason: Recheck today's complaints, Continuance of care, Re-evaluation by your physician. alayna
[2019-01-11 19:17] VITALS: BP 115/65; TEMP 98; O2SAT 100
== END 2019-01-11 19:01 | disposition home or self-care (01) ==
LOC: ER 16:39
DX: N83.299 Other ovarian cyst, unspecified side (principal); N64.4 Mastodynia; R30.0 Dysuria
CPT/HCPCS: 36415; 74177; 80048; 80076; 81003; 81015; 81025; 83690; 85025; 96361; 96374; 96375; 99284; J2270; J2405; J7030; Q9967

== ENCOUNTER 2019-05-23 17:55 | Emergency (ER) | payer SELFPAY ==
--- NOTE | 2019-05-23 18:11 | ER ---
Nurse's Notes [facility] Name: Cheyanne Lopes Age: 23 yrs Sex: Female : 1995 Arrival Date: 05/23/2019 Time: 17:58 Bed 13 Private MD: Diagnosis: Cellulitis of left lower limb Presentation: 05/23 18:03 Presenting complaint: Patient states: I got a tatoo on my left lower leg on 05/17 and I la1 think its infected. Transition of care: patient was not received from another setting of care. Onset of symptoms was May 23, 2019. Risk Assessment: Do you want to hurt yourself or someone else? Patient reports no desire to harm self or others. Initial Sepsis Screen: Does the patient meet any 2 criteria? No. Patient's initial sepsis screen is negative. Does the patient have a suspected source of infection? No. Patient's initial sepsis screen is negative. Care prior to arrival: None. 18:03 Method Of Arrival: Ambulatory la1 18:03 Acuity: GERI 4 la1 Historical: - Allergies: 18:04 No Known Allergies; la1 - PMHx: 18:04 Depression; la1 - Immunization history:: Adult Immunizations up to date. - Social history:: Smoking status: Patient/guardian denies using tobacco. - Ebola Screening: : No symptoms or risks identified at this time. Screenin:00 Abuse screen: Denies threats or abuse. Nutritional screening: No deficits noted. tr5 Tuberculosis screening: No symptoms or risk factors identified. Fall Risk None identified. Assessment: 18:00 General: Appears uncomfortable, Behavior is calm, cooperative, appropriate for age. tr5 Pain: Complains of pain in left leg. Neuro: Level of Consciousness is awake, alert, obeys commands, Oriented to person, place, time. Cardiovascular: Heart tones present. Respiratory: Airway is patent Respiratory effort is even, unlabored, Respiratory pattern is regular, symmetrical. GI: No signs and/or symptoms were reported involving the gastrointestinal system. : No signs and/or symptoms were reported regarding the genitourinary system. EENT: No signs and/or symptoms were reported regarding the EENT system. Derm: Tattoo infection to L leg. Musculoskeletal: No signs and/or symptoms reported regarding the musculoskeletal system. Vital Signs: 18:04 BP 129 / 75; Pulse 94; Resp 16; Temp 97.3; Pulse Ox 100% on R/A; Weight 69.4 kg; Height la1 5 ft. 6 in. (167.64 cm); 18:04 Body Mass Index 24.69 (69.40 kg, 167.64 cm) la1 ED Course: 17:58 Patient arrived in ED. mr 18:00 Bed in low position. Call light in reach. Side rails up X 1. tr5 18:03 Triage completed. la1 18:04 Arm band placed on left wrist. la1 18:05 Bora Roach NP is PHCP. pm1 18:05 Ganga Mclean MD is Attending Physician. pm1 18:22 Abelardo Green, MINE is Primary Nurse. tr5 18:41 No provider procedures requiring assistance completed. Patient did not have IV access tr5 during this emergency room visit. Administered Medications: 18:27 Drug: Bactrim (160 mg-800 mg (DS) 1 tablet Route: PO; tr5 18:28 Drug: Tetanus-Diphtheria Toxoid Adult 0.5 ml {Tire Inspector: [employer]. Exp: tr5 12/23/2020. Lot #: [id number]. } Route: IM; Site: right deltoid; Outcome: 18:10 Discharge ordered by . pm1 18:41 Discharged to home ambulatory. tr5 18:41 Condition: stable 18:41 Discharge instructions given to patient, Instructed on discharge instructions, follow up and referral plans. medication usage, Demonstrated understanding of instructions, follow-up care, medications, Prescriptions given X 3. 18:42 Patient left the ED. tr5 Signatures: Milvia Watters Lee, RN RN la1 Bora Roach, MATILDE WASHING MACHINE MECHANIC pm1 Abelardo Green, MINE RN tr5
--- NOTE | 2019-05-23 18:11 | EDPHYS ---
Physician Documentation [facility] Name: Cheyanne Lopes Age: 23 yrs Sex: Female : 1995 Arrival Date: 05/23/2019 Time: 17:58 Bed 13 Private MD: ED Physician Ganga Mclean HPI: 05/23 18:15 This 23 yrs old Black Female presents to ER via Ambulatory with complaints of Infected pm1 Tattoo. 18:15 The patient presents with cellulitis of the medial aspect of left calf. Description: pm1 tense. Onset: The symptoms/episode began/occurred 6 day(s) ago. Possible cause(s): tattoo. Associated signs and symptoms: Pertinent positives: drainage, Pertinent negatives: fever. Modifying factors: the symptoms are alleviated by nothing, the symptoms are aggravated by walking, touching. Severity of symptoms: in the emergency department the symptoms are actually worse. The patient has not experienced similar symptoms in the past. The patient has not recently seen a physician. Patient with tattoo placement 6 days ago and reports drainage from tattoo for the past few days. Historical: - Allergies: 18:04 No Known Allergies; la1 - PMHx: 18:04 Depression; la1 - Immunization history:: Adult Immunizations up to date. - Social history:: Smoking status: Patient/guardian denies using tobacco. - Ebola Screening: : No symptoms or risks identified at this time. ROS: 18:15 Constitutional: Negative for fever, chills, and weight loss, Cardiovascular: Negative pm1 for chest pain, palpitations, and edema, Respiratory: Negative for shortness of breath, cough, wheezing, and pleuritic chest pain, Back: Negative for injury and pain, MS/Extremity: Negative for injury and deformity. 18:15 Skin: Positive for cellulitis. 18:15 All other systems are negative. Exam: 18:15 Constitutional: This is a well developed, well nourished patient who is awake, alert, pm1 and in no acute distress. Chest/axilla: Normal chest wall appearance and motion. Nontender with no deformity. No lesions are appreciated. Cardiovascular: Regular rate and rhythm with a normal S1 and S2. No gallops, murmurs, or rubs. Normal PMI, no JVD. No pulse deficits. Respiratory: Lungs have equal breath sounds bilaterally, clear to auscultation and percussion. No rales, rhonchi or wheezes noted. No increased work of breathing, no retractions or nasal flaring. 18:15 MS/ Extremity: Pulses equal, no cyanosis. Neurovascular intact. Full, normal range of motion. 18:15 Musculoskeletal/extremity: DVT Exam: No signs of deep vein thrombosis. no pain, no swelling, no tenderness, no appreciated bluish discoloration, no erythema, no increased warmth. 18:15 Skin: Appearance: normal except for affected area, abscess, not appreciated, cellulitis, that is mild, on the medial aspect of left calf. 18:15 Neuro: Orientation: is normal, Motor: is normal, moves all fours. Vital Signs: 18:04 BP 129 / 75; Pulse 94; Resp 16; Temp 97.3; Pulse Ox 100% on R/A; Weight 69.4 kg; Height la1 5 ft. 6 in. (167.64 cm); 18:04 Body Mass Index 24.69 (69.40 kg, 167.64 cm) la1 MDM: 18:05 Patient medically screened. pm1 18:09 Data reviewed: vital signs. Data interpreted: Pulse oximetry: on room air is 100 %. pm1 Interpretation: normal. Counseling: I had a detailed discussion with the patient and/or guardian regarding: the historical points, exam findings, and any diagnostic results supporting the discharge/admit diagnosis, the need for outpatient follow up, to return to the emergency department if symptoms worsen or persist or if there are any questions or concerns that arise at home. 05/23 18:11 Order name: Wound Care; Complete Time: 18:28 pm1 Administered Medications: 18:27 Drug: Bactrim (160 mg-800 mg (DS) 1 tablet Route: PO; tr5 18:28 Drug: Tetanus-Diphtheria Toxoid Adult 0.5 ml {Stepdown Nurse: [employer]. Exp: tr5 12/23/2020. Lot #: [id number]. } Route: IM; Site: right deltoid; Disposition: 05/24 07:16 Co-signature as Attending Physician, Ganga Mclean MD I agree with the assessment and kdr plan of care. Disposition: 05/23/19 18:10 Discharged to Home. Impression: Cellulitis of left lower limb. - Condition is Stable. - Discharge Instructions: Cellulitis, Adult. - Prescriptions for Bactroban 2 % Topical Ointment - Apply to affected area 1 application by TOPICAL route every 12 hours; 30 gram. Tylenol- Codeine #3 300-30 mg Oral Tablet - take 2 tablets by ORAL route every 6 hours As needed; 12 tablet. Bactrim DS 800- 160 mg Oral Tablet - take 1 tablet by ORAL route every 12 hours for 10 days; 20 tablet. - Medication Reconciliation Form, Thank You Letter, Antibiotic Education, Prescription Opioid Use form. - Follow up: Emergency Department; When: As needed; Reason: Worsening of condition. Follow up: Private Physician; When: 2 - 3 days; Reason: Recheck today's complaints, Continuance of care, Re-evaluation by your physician. - Problem is new. - Symptoms have improved. Signatures: Ganga Mclean MD MD kdr Alban Presley RN RN la1 Bora Roach, MATILDE ENVIRONMENTAL OFFICER pm1 Abelardo Green RN RN tr5 Corrections: (The following items were deleted from the chart) 05/23 18:42 18:10 05/23/2019 18:10 Discharged to Home. Impression: Cellulitis of left lower limb. tr5 Condition is Stable. Forms are Medication Reconciliation Form, Thank You Letter, Antibiotic Education, Prescription Opioid Use. Follow up: Emergency Department; When: As needed; Reason: Worsening of condition. Follow up: Private Physician; When: 2 - 3 days; Reason: Recheck today's complaints, Continuance of care, Re-evaluation by your physician. Problem is new. Symptoms have improved. pm1
[2019-05-23] MEDS ORDERED: SMZ./TMP. 800/160 MG TABLET ONE (18:23)
[2019-05-23] MEDS ORDERED: TETANUS & DIPHTHERIA TOX,ADULT 0.5 ML VIAL ONE (18:24)
[2019-05-23 19:34] VITALS: BP 129/75; TEMP 97.3; O2SAT 100
== END 2019-05-23 18:42 | disposition home or self-care (01) ==
LOC: ER 17:55
DX: L03.116 Cellulitis of left lower limb (principal); F32.9 Major depressive disorder, single episode, unspecified; Z23 Encounter for immunization
CPT/HCPCS: 90471; 90714; 99283

== ENCOUNTER 2020-02-08 15:05 | Emergency (ER) | payer SELFPAY, OTHER ==
--- OUTSIDE RECORDS SUMMARY | 2020-02-08 15:25 | XMS REPORT | Continuity of Care Document ---
:1995 Author Organization [facility] t Address [address] [place] [address] Dr. Lee. [address] [place] [address] Care Team Providers Name Role Phone Eli Rodríguez Attending Clinician Problems This patient has no known problems. Allergies, Adverse Reactions, Alerts This patient has no known allergies or adverse reactions. Medications This patient has no known medications. Procedures This patient has no known procedures. Encounters Start End Encounter Admission Attending Care Care Encounter Source Date/Time Date/Time Type Type Clinicians Facility Department ID 2019-03-12 2019-03-12 Telephone JOLEEN Torres [id number] 00:00:00 00:00:00 Lauren Benitez LUNG PULLER [id number] [facility] [id number] MATERNAL [id number] & CHILD [address] [place] [address] Results This patient has no known results.
--- NOTE | 2020-02-08 16:16 | RAD REPORT ---
EXAM DESCRIPTION: RAD - Chest Single View - 02/08/2020 4:05 pm CLINICAL HISTORY: COUGH COMPARISON: Chest exam March 2016 TECHNIQUE: AP portable chest image was obtained 02/08/2020 4:05 pm . FINDINGS: Lungs are clear. Heart and vasculature are normal. No measurable pleural effusion and no p neumothorax. No acute bony abnormality seen. No acute aortic findings suspected. No significant inter dagmar change. IMPRESSION: No acute cardiopulmonary process.
--- NOTE | 2020-02-08 16:21 | ER ---
Nurse's Notes [facility] Name: Cheyanne Lopes Age: 24 yrs Sex: Female : 1995 Arrival Date: 02/08/2020 Time: 15:10 Bed 18 Private MD: Diagnosis: Viral infection, unspecified Presentation: 02/07 15:11 Chief complaint: Patient states: runny nose, congestion, non productive cough, chills, sv diarrhea, body aches x 2 days. Coronavirus screen: Surgical mask placed on patient. Patient moved to private room, placed in contact and droplet isolation with eye protection until further assessment. Patient reports a cough. Patient denies shortness of breath or difficulty breathing. Patient reports a measured and/or subjective temperature greater than 100.4F. Patient denies travel on a cruise ship or to a country the [facility] currently lists as an affected area. Patient reports contact with known and/or suspected case of COVID-19. Has been exposed to + COVID people. Ebola Screen: No symptoms or risks identified at this time. Risk Assessment: Do you want to hurt yourself or someone else? Patient reports no desire to harm self or others. Onset of symptoms was February 06, 2020. 15:11 Method Of Arrival: Ambulatory sv 15:11 Acuity: GERI 2 sv 15:14 Initial Sepsis Screen: Does the patient meet any 2 criteria? HR > 90 bpm. No. Patient's sv initial sepsis screen is negative. Does the patient have a suspected source of infection? No. Patient's initial sepsis screen is negative. Triage Assessment: 15:13 General: Appears in no apparent distress. uncomfortable, Behavior is calm, cooperative, sv appropriate for age. Neuro: Level of Consciousness is awake, alert, obeys commands, Oriented to person, place, time, situation, Gait is steady. Respiratory: Reports cough that is non-productive, Respiratory effort is even, unlabored. Derm: Skin is normal. Historical: - Allergies: 15:13 No Known Drug Allergies; sv - PMHx: 15:13 Depression; sv - Immunization history:: Adult Immunizations. - Social history:: Smoking status: Patient denies any tobacco usage or history of. Screenin:08 Abuse screen: Denies threats or abuse. Nutritional screening: No deficits noted. Nutritional screening:. Tuberculosis screening: No symptoms or risk factors identified. Fall Risk None identified. Assessment: 15:30 General: Appears in no apparent distress. Behavior is calm, cooperative, appropriate ah for age. Pain: Denies pain. Neuro: Level of Consciousness is awake, alert, Oriented to person, place, time, situation. Cardiovascular: Capillary refill < 3 seconds Patient's skin is warm and dry. Respiratory: Airway is patent Respiratory effort is even, unlabored. GI: Reports diarrhea. EENT: Nares with drainage noted. Derm: Skin is intact, is healthy with good turgor. Vital Signs: 15:14 BP 117 / 80; Pulse 101; Resp 18; Temp 97.7; Pulse Ox 99% ; Weight 74.84 kg; Height 5 sv ft. 6 in. (167.64 cm); 15:14 Body Mass Index 26.63 (74.84 kg, 167.64 cm) sv ED Course: 15:10 Patient arrived in ED. mr 15:13 Triage completed. sv 15:13 Arm band placed on. sv 15:17 Richard Santos PA is PHCP. 8 15:17 Zuhair Perdue MD is Attending Physician. jr8 15:18 Zhuair Perdue MD is Attending Physician. 8 15:31 Radha Li, RN is Primary Nurse. 15:31 Bed in low position. Call light in reach. Side rails up X 1. Verbal reassurance given. jp3 Door closed. Pulse ox on. NIBP on. 15:31 COVID-19 swab collected. Patient maintains SpO2 saturation greater than 95% on room air.jp3 15:31 COVID-19 Sent. jp3 16:05 XRAY CXR (1 view) In Process Unspecified. EDMS 17:09 No provider procedures requiring assistance completed. Patient did not have IV access during this emergency room visit. Administered Medications: No medications were administered Outcome: 16:21 Discharge ordered by . [facility] 16:40 Discharged to home ambulatory. 16:40 Condition: good 16:40 Discharge instructions given to patient, Instructed on discharge instructions, follow up and referral plans. medication usage, Demonstrated understanding of instructions, follow-up care, medications, Prescriptions given X 3. 17:09 Patient left the ED. Addendum: 02/10/2020 17:36 Addendum: Other Notified pt of negative COVID-19 swab results. Pt advised to remain in d m5 isolation until symptom free for 3 days and to return to the ED for worsening symptoms. Signatures: Dispatcher [employer] Geno Levin, MINE RN dm5 Breanne Grant RN RN sv Milvia Watters mr JoyceRichard wilcox PA PA jr8 Rex Luke jp3 Radha Li RN RN Corrections: (The following items were deleted from the chart) 02/07 15:16 15:11 Acuity: GERI 3 sv sv 15:16 15:14 Pulse 101bpm; Resp 18bpm; Pulse Ox 99%; Temp 97.7F; 74.84 kg; Height 5 ft. 6 in.; sv BMI: 26.6; sv
--- NOTE | 2020-02-08 16:22 | EDPHYS ---
Physician Documentation [facility] Name: Cheyanne Lopes Age: 24 yrs Sex: Female : 1995 Arrival Date: 02/08/2020 Time: 15:10 Bed 18 Private MD: ED Physician Zuhair Perdue HPI: 02/07 15:51 This 24 yrs old Black Female presents to ER via Ambulatory with complaints of Cough, jr8 Headache, Sinus Congestion, Vomiting/Diarrhea. 15:51 The patient or guardian reports cough, that is intermittent, described as moderate, jr8 with no sputum. Onset: The symptoms/episode began/occurred acutely, 3 day(s) ago. Severity of symptoms: At their worst the symptoms were moderate, in the emergency department the symptoms are unchanged. Modifying factors: The symptoms are alleviated by nothing, the symptoms are aggravated by nothing. Associated signs and symptoms: Pertinent positives: diarrhea, nausea, sore throat. The patient has not experienced similar symptoms in the past. The patient has not recently seen a physician. Stated that she works at [employer]. Stated that three other employees tested positive for COVID 19. Started to have symptoms 3 days ago. Historical: - Allergies: 15:13 No Known Drug Allergies; sv - PMHx: 15:13 Depression; sv - Immunization history:: Adult Immunizations. - Social history:: Smoking status: Patient denies any tobacco usage or history of. ROS: 15:51 Eyes: Negative for injury, pain, redness, and discharge, Neck: Negative for injury, jr8 pain, and swelling, Cardiovascular: Negative for chest pain, palpitations, and edema, Back: Negative for injury and pain, MS/Extremity: Negative for injury and deformity, Skin: Negative for injury, rash, and discoloration. 15:51 Constitutional: Positive for body aches, chills, fatigue, fever. 15:51 ENT: Positive for sore throat. 15:51 Respiratory: Positive for cough, Negative for dyspnea on exertion, shortness of breath, sputum production, wheezing. 15:51 Abdomen/GI: Positive for nausea, vomiting, and diarrhea, Negative for abdominal pain, constipation, abdominal cramps, abdominal distension. 15:51 Neuro: Positive for headache. Exam: 15:51 Constitutional: This is a well developed, well nourished patient who is awake, alert, jr8 and in no acute distress. Eyes: Pupils equal round and reactive to light, extra-ocular motions intact. Lids and lashes normal. Conjunctiva and sclera are non-icteric and not injected. Cornea within normal limits. Periorbital areas with no swelling, redness, or edema. ENT: Nares patent. No nasal discharge, no septal abnormalities noted. Tympanic membranes are normal and external auditory canals are clear. Oropharynx with no redness, swelling, or masses, exudates, or evidence of obstruction, uvula midline. Mucous membranes moist. Neck: Trachea midline, no thyromegaly or masses palpated, and no cervical lymphadenopathy. Supple, full range of motion without nuchal rigidity, or vertebral point tenderness. No Meningismus. Cardiovascular: Regular rate and rhythm with a normal S1 and S2. No gallops, murmurs, or rubs. Normal PMI, no JVD. No pulse deficits. Respiratory: Lungs have equal breath sounds bilaterally, clear to auscultation and percussion. No rales, rhonchi or wheezes noted. No increased work of breathing, no retractions or nasal flaring. Abdomen/GI: Soft, non-tender, with normal bowel sounds. No distension or tympany. No guarding or rebound. No evidence of tenderness throughout. Back: No spinal tenderness. No costovertebral tenderness. Full range of motion. Skin: Warm, dry with normal turgor. Normal color with no rashes, no lesions, and no evidence of cellulitis. MS/ Extremity: Pulses equal, no cyanosis. Neurovascular intact. Full, normal range of motion. Neuro: Awake and alert, GCS 15, oriented to person, place, time, and situation. Cranial nerves II-XII grossly intact. Motor strength 5/5 in all extremities. Sensory grossly intact. Cerebellar exam normal. Normal gait. Vital Signs: 15:14 BP 117 / 80; Pulse 101; Resp 18; Temp 97.7; Pulse Ox 99% ; Weight 74.84 kg; Height 5 sv ft. 6 in. (167.64 cm); 15:14 Body Mass Index 26.63 (74.84 kg, 167.64 cm) sv MDM: 15:18 Patient medically screened. jr8 16:17 Data reviewed: vital signs, nurses notes, lab test result(s), radiologic studies, plain jr8 films. Data interpreted: Pulse oximetry: on room air is 99 %. Interpretation: normal. Counseling: I had a detailed discussion with the patient and/or guardian regarding: the historical points, exam findings, and any diagnostic results supporting the discharge/admit diagnosis, lab results, radiology results, the need for outpatient follow up, a family practitioner, to return to the emergency department if symptoms worsen or persist or if there are any questions or concerns that arise at home. ED course: Patient stable. No acute respiratory distress. Maintains normal oxygen saturation without oxygen. Will send home to wait for COVID results. Needs to remain in isolation until cleared. If positive to be retested in 10-14 days. If worse to come back. Patient understands and is good with plan. 02/07 15:18 Order name: COVID-19 jr8 02/07 15:18 Order name: XRAY CXR (1 view); Complete Time: 16:17 jr8 Administered Medications: No medications were administered Disposition: 02/08 13:22 Co-signature as Attending Physician, Zuhair Perdue MD I agree with the assessment and [facility] plan of care. Disposition: 02/08/20 16:21 Discharged to Home. Impression: Viral infection, unspecified. - Condition is Stable. - Discharge Instructions: COVID-19. - Prescriptions for prednisone 10 mg Oral tablet - take 1 tablet by ORAL route 2 times per day for 10 days; 20 tablet. Zofran 4 mg Oral Tablet - take 1 tablet by ORAL route every 12 hours As needed; 20 tablet. Guaifenesin AC 10- 100 mg/5 mL Oral Liquid - take 10 milliliter by ORAL route every 4 hours As needed; 240 milliliter. - Medication Reconciliation Form, Thank You Letter, Antibiotic Education, Prescription Opioid Use, Work release form form. - Follow up: Private Physician; When: As needed; Reason: Recheck today's complaints, Continuance of care, Re-evaluation by your physician. - Problem is new. - Symptoms have improved. Signatures: Dispatcher [employer] Breanne Altamirano RN RN sv Anderson, Corey, MD MD cha Roszak, Josh, PA PA jr8 Radha Li RN RN Corrections: (The following items were deleted from the chart) 02/07 17:09 16:21 02/08/2020 16:21 Discharged to Home. Impression: Viral infection, unspecified. ah Condition is Stable. Forms are Medication Reconciliation Form, Thank You Letter, Antibiotic Education, Prescription Opioid Use. Follow up: Private Physician; When: As needed; Reason: Recheck today's complaints, Continuance of care, Re-evaluation by your physician. Problem is new. Symptoms have improved. jr8
[2020-02-08 17:17] VITALS: BP 117/80; TEMP 97.7; O2SAT 99
== END 2020-02-08 17:09 | disposition home or self-care (01) ==
LOC: ER 15:05
DX: B34.9 Viral infection, unspecified (principal); Z20.828 Contact with and (suspected) exposure to other viral communicable diseases
CPT/HCPCS: 71045; 99284; U0001

== ENCOUNTER 2020-04-17 09:55 | Emergency (ER) | payer OTHER, SELFPAY ==
--- OUTSIDE RECORDS SUMMARY | 2020-04-17 09:57 | XMS REPORT | Continuity of Care Document ---
:1995 Author Organization [facility] t Address [address] [place] [address] [address]. 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 [id number] MATERNAL [phone] & CHILD [address] [place] [address] Results This patient has no known results.
[2020-04-17] MEDS ORDERED: IBUPROFEN 400 MG TAB ONE (10:25)
[2020-04-17 10:49] LABS: Urine Bacteria <20 /HPF (<20); Urine RBC <5 /HPF (NONE SEEN)
[2020-04-17 10:50] LABS: Urine Amorphous Sediment 1+ /HPF (NONE SEEN); Urine Culture Reflex Order NOT NEEDED
[2020-04-17 10:52] LABS: Urine Blood NEGATIVE (NEG); Urine Glucose NEGATIVE (NEG); Urine Protein NEGATIVE (NEG)
[2020-04-17] MEDS ORDERED: KETOROLAC 30 MG/ML INJ ONE (12:31)
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
--- NOTE | 2020-04-17 12:55 | RAD REPORT ---
EXAM DESCRIPTION: RAD - Lumbar Spine 3 Views - 04/17/2020 10:51 am CLINICAL HISTORY: Back pain FINDINGS: The alignment of the lumbar spine is satisfactory. No fracture or dislocation is seen.
--- NOTE | 2020-04-17 12:57 | RAD REPORT ---
EXAM DESCRIPTION: RAD - C Spine Ap/Lat - 04/17/2020 10:57 am CLINICAL HISTORY: Neck pain FINDINGS: No fracture or dislocation is seen.
--- NOTE | 2020-04-17 12:58 | RAD REPORT ---
EXAM DESCRIPTION: RAD - Knee Left 2 View - 04/17/2020 10:51 am CLINICAL HISTORY: Left knee pain FINDINGS: No fracture or dislocation is seen.
--- NOTE | 2020-04-17 12:59 | RAD REPORT ---
EXAM DESCRIPTION: Leighton Single View04/17/2020 10:51 am CLINICAL HISTORY: Chest pain COMPARISON: January 2020 FINDINGS: The lungs appear clear of acute infiltrate. The heart is normal size IMPRESSION: No acute abnormalities displayed
[2020-04-18 11:13] VITALS: TEMP 97.7
[2020-04-18 11:16] VITALS: BP 123/77; O2SAT 100
== END 2020-04-17 13:06 | disposition home or self-care (01) ==
LOC: ER 09:55
DX: M62.838 Other muscle spasm (principal); V49.49XA Driver injured in collision with other motor vehicles in traffic accident, initial encounter
CPT/HCPCS: 71045; 72040; 72100; 81003; 81015; 81025; 96372; 99284

== ENCOUNTER 2020-05-21 17:00 | Emergency (ER) | payer SELFPAY ==
--- OUTSIDE RECORDS SUMMARY | 2020-05-21 17:03 | XMS REPORT | Continuity of Care Document ---
:1995 Author Organization [facility] t Address [address] [place] [address] [address] [place] [address] Care Team Providers Name Role Phone Eli [...] 2019-03-12 2019-03-12 Telephone JOLEEN Torres [id number] 00:00:00 00:00:00 Lauren Benitez SCOURING MACHINE TENDER [id number] [facility] [id number] MATERNAL [id number] & CHILD [address] [place] [address] Results This patient has no known results.
[2020-05-21 17:41] LABS: Protime INR 1.03
[2020-05-21] MEDS ORDERED: KETOROLAC 30 MG/ML INJ ONE (17:43)
[2020-05-21 17:46] LABS: Hematocrit 28.9 % (36.0-45.0); Lymphocytes % 39.8 % (15.3-44.8); RBC Red Blood Cell Count 4.61 M/uL (3.86-4.86)
[2020-05-21 17:49] LABS: Urine Blood NEGATIVE (NEG); Urine Glucose NEGATIVE (NEG); Urine Protein NEGATIVE (NEG)
[2020-05-21 17:54] LABS: ALT/SGPT 16 U/L (12-78); AST/SGOT 16 U/L (15-37); Albumin 3.6 g/dL (3.4-5.0); Alkaline Phosphatase 80 U/L (45-117); BUN Blood Urea Nitrogen 7 mg/dL (7-18); Bicarbonate 28 mmol/L (21-32); Bilirubin Direct < 0.1 mg/dL (0-0.2); Bilirubin Total 0.3 mg/dL (0.2-1.0); Glucose Level 85 mg/dL (74-106); Magnesium 1.9 mg/dL (1.8-2.4); NT PRO-BNP 76 pg/mL (<125); Potassium 3.2 mmol/L (3.5-5.1); Protein, Total 7.9 g/dL (6.4-8.2); Sodium Level 139 mmol/L (136-145); Troponin (Emerg Dept Use Only) < 0.02 ng/mL (0.0-0.045)
--- NOTE | 2020-05-21 18:44 | RAD REPORT ---
EXAM DESCRIPTION: CT - Chest For Pe Angio - 05/21/2020 6:32 pm CLINICAL HISTORY: Chest pain COMPARISON: None. TECHNIQUE: Dynamically enhanced axial 3 mm thick images of the chest were obtained during administra tion of <100> mL Isovue 370 IV contrast. Coronal and oblique reconstruction images were generated and reviewed. Exam utilizes a protocol for optimal evaluation of pulmonary arterial tree. Maximum intensity projections 3D imaging was utilized All CT scans are performed using dose optimization technique as appropriate and may include automated exposure control or mA/KV adjustment according to patient size. FINDINGS: A pulmonary embolus is not seen. A thoracic aortic aneurysm is not noted. A pleural effusion is not seen. A pericardial effusion is not seen. A lung consolidation is not present. IMPRESSION: Negative for a pulmonary embolism.
--- NOTE | 2020-05-21 18:44 | RAD REPORT ---
EXAM DESCRIPTION: Leighton Single View05/21/2020 5:53 pm CLINICAL HISTORY: Chest pain COMPARISON: April 2020 FINDINGS: The lungs appear clear of acute infiltrate. The heart is normal size IMPRESSION: No acute abnormalities displayed
--- NOTE | 2020-05-21 18:50 | ER ---
Nurse's Notes [facility] Name: Cheyanne Lopes Age: 24 yrs Sex: Female : 1995 Arrival Date: 05/21/2020 Time: 17:03 Bed 4 Private MD: Diagnosis: Chest pain, unspecified Presentation: 05/21 17:07 Chief complaint: Patient states: Mid chest pain for years, she ignores it. States it ll1 got worse today while at work. Certain movements make her chest pain increase. No cough or fever. No SOB. Coronavirus screen: Client denies travel out of the [place] in the last 14 days. At this time, the client does not indicate any symptoms associated with coronavirus-19. Ebola Screen: Patient denies travel to an Ebola-affected area in the 21 days before illness onset. Initial Sepsis Screen: Does the patient meet any 2 criteria? No. Patient's initial sepsis screen is negative. Does the patient have a suspected source of infection? No. Patient's initial sepsis screen is negative. Risk Assessment: Do you want to hurt yourself or someone else? Patient reports no desire to harm self or others. Onset of symptoms was May 21, 2020. 17:07 Method Of Arrival: Ambulatory ll1 17:07 Acuity: GERI 3 ll1 Historical: - Allergies: 17:07 No Known Allergies; ll1 - PMHx: 17:07 Depression; High Blood Pressure; ll1 - PSHx: 17:07 None; ll1 - Immunization history:: Flu vaccine is not up to date. - Social history:: Smoking status: Patient denies any tobacco usage or history of. Screenin:15 Abuse screen: Denies threats or abuse. Denies injuries from another. Nutritional sv screening: No deficits noted. Tuberculosis screening: No symptoms or risk factors identified. Fall Risk None identified. Assessment: 17:15 General: Appears in no apparent distress. uncomfortable, well groomed, well developed, sv Behavior is calm, cooperative, appropriate for age. Pain: Complains of pain in anterior aspect of right upper chest and right breast Pain does not radiate. Pain currently is 10 out of 10 on a pain scale. Quality of pain is described as sharp, Pain began years ago. Is intermittent, episodic, Aggravated by recently worse with deep breathing. Neuro: Level of Consciousness is awake, alert, obeys commands, Oriented to person, place, time, situation, Gait is steady, Speech is normal. Cardiovascular: Patient's skin is warm and dry. Rhythm is sinus rhythm. Cardiovascular: Reports chest pain. Respiratory: Reports cough that is non-productive, Airway is patent Respiratory effort is even, unlabored, Respiratory pattern is regular, symmetrical. Derm: Skin is pink, warm \T\ dry. Musculoskeletal: Range of motion: intact in all extremities. 18:00 Reassessment: Patient appears in no apparent distress at this time. No changes from previously documented assessment. Patient and/or family updated on plan of care and expected duration. Pain level reassessed. Patient is alert, oriented x 3, equal unlabored respirations, skin warm/dry/pink. 18:36 Reassessment: García MEDRANO at bedside speaking with pt regarding results. sv 18:51 Reassessment: Patient appears in no apparent distress at this time. Patient and/or sv family updated on plan of care and expected duration. Pain level reassessed. Patient is alert, oriented x 3, equal unlabored respirations, skin warm/dry/pink. 19:22 Reassessment: Patient and/or family updated on plan of care and expected duration. Pain ea level reassessed. Patient is alert, oriented x 3, equal unlabored respirations, skin warm/dry/pink. Discharge instruction given to patient, verbalized the understanding of instruction. Pt left ED ambulatory accompanied by family pt tolerating well. Vital Signs: 17:07 BP 135 / 80; Pulse 85; Resp 17; Temp 98.1; Pulse Ox 100% ; Weight 74.84 kg; Height 5 ll1 ft. 6 in. (167.64 cm); Pain 10/10; 17:35 BP 116 / 77; Pulse 90; Resp 26; Pulse Ox 100% ; sv 18:00 BP 108 / 66; Pulse 72; Resp 22; Pulse Ox 95% on R/A; sv 18:37 BP 100 / 65; Pulse 66 MON; Resp 17; Pulse Ox 100% on R/A; sv 19:00 BP 130 / 77; Pulse 74; Resp 18; Temp 98; Pulse Ox 98% ; ea 17:07 Body Mass Index 26.63 (74.84 kg, 167.64 cm) ll1 18:37 Sinus Rhythm ED Course: 17:03 Patient arrived in ED. mr 17:07 Arm band placed on Patient placed in an exam room, on a stretcher. ll1 17:09 Triage completed. 1 17:10 [facility]amorro [facility] 17:10 Zuhair Perdue MD is Attending Physician. [facility] 17:12 Breanne Grant RN is Primary Nurse. sv 17:15 Patient has correct armband on for positive identification. Placed in gown. Bed in low sv position. Call light in reach. Adult w/ patient. 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 Pulse ox on. NIBP on. Door closed. Warm blanket given. Head of bed elevated. 17:15 Inserted saline lock: 20 gauge in right antecubital area, using aseptic technique. sv Blood collected. Flushed right antecubital with 5 ml normal saline. Patient maintains SpO2 saturation greater than 95% on room air. 17:33 X-ray(s) taken. sv 17:35 Urine collected: clean catch specimen, clear, reymundo colored, EKG done, by ED staff, jp3 reviewed by García MEDRANO. 17:53 XRAY Chest (1 view) In Process Unspecified. EDMS 18:32 CT Chest For PE Angio In Process Unspecified. EDMS 18:36 Awaiting radiology results. sv 19:15 Primary Nurse role handed off by Breanne Grant RN sv 19:22 No provider procedures requiring assistance completed. IV discontinued, intact, ea bleeding controlled, No redness/swelling at site. Pressure dressing applied. Administered Medications: 17:32 Drug: Ketorolac 30 mg Route: IVP; Site: right antecubital; sv 18:24 Follow up: Response: No adverse reaction sv 18:51 Drug: Valium 5 mg Route: IVP; Site: right antecubital; sv 19:24 Follow up: Response: No adverse reaction ea Outcome: 18:49 Discharge ordered by . [facility] 19:22 Discharged to home ambulatory. ea 19:22 Condition: stable 19:22 Discharge instructions given to patient, Instructed on discharge instructions, follow up and referral plans. medication usage, Demonstrated understanding of instructions, follow-up care, medications, Prescriptions given X 2. 19:23 Patient left the ED. ea Signatures: Dispatcher [employer] EDMS Breanne Grant RN RN sv Mickail, Joel, PA PA jmm Watters, Milvia mr TamNellie gray RN RN ea Rex Luke jp3 Juanita Parish RN RN ll1 Corrections: (The following items were deleted from the chart) 18:51 18:33 BP 100 / 65; Pulse 71bpm; Resp 21bpm; Pulse Ox 100% RA; sv sv 19:23 19:23 BP 130 / 77; Pulse 74bpm; Resp 18bpm; Pulse Ox 98%; Temp 98F; ea ea
--- NOTE | 2020-05-21 18:50 | EDPHYS ---
Physician Documentation [facility] Name: Cheyanne Lopes Age: 24 yrs Sex: Female : 1995 Arrival Date: 05/21/2020 Time: 17:03 Bed 4 Private MD: ED Physician Zuhair Perdue HPI: 05/21 17:18 This 24 yrs old Black Female presents to ER via Ambulatory with complaints of Chest jmm Pain. 17:18 The patient or guardian reports chest pain that is located primarily in the anterior [facility] chest wall, right. The pain does not radiate. Associated signs and symptoms: Pertinent negatives: dizziness, syncope, vomiting. The chest pain is described as sharp. Duration: The patient or guardian reports a single episode, that is still ongoing. Modifying factors: The symptoms are alleviated by remaining still, the symptoms are aggravated by movement, palpation of area. This is a 24 year old female with a history of HTN, that presents to the ED with complaints of right sided chest pain which has been ongoing for the past 3 days. Pain worsened today. Patient states she has chronic chest pain but has never had it evaluated. Denies recreational drug use. Historical: - Allergies: 17:07 No Known Allergies; ll1 - PMHx: 17:07 Depression; High Blood Pressure; ll1 - PSHx: 17:07 None; ll1 - Immunization history:: Flu vaccine is not up to date. - Social history:: Smoking status: Patient denies any tobacco usage or history of. ROS: 17:18 Constitutional: Negative for fever, chills, and weight loss, Respiratory: Negative for jmm shortness of breath, cough, wheezing, and pleuritic chest pain. 17:18 Cardiovascular: Positive for chest pain. 17:18 All other systems are negative. Exam: 17:18 Constitutional: This is a well developed, well nourished patient who is awake, alert, jmm and in no acute distress. Head/Face: atraumatic. Eyes: EOMI, no conjunctival erythema appreciated ENT: Moist Mucus Membranes Neck: Trachea midline, Supple 17:18 Abdomen/GI: Non distended, soft Back: Normal ROM Skin: General appearance color normal MS/ Extremity: Moves all extremities, no obvious deformities appreciated, no edema noted to the lower extremities Neuro: Awake and alert, normal gait Psych: Behavior is normal, Mood is normal, Patient is cooperative and pleasant 17:18 Chest/axilla: Inspection: normal, Palpation: tenderness, of the anterior aspect of right upper chest. 17:18 Cardiovascular: Rate: normal, Rhythm: regular, Pulses: no pulse deficits are appreciated. 17:18 Respiratory: the patient does not display signs of respiratory distress, Respirations: normal, Breath sounds: are clear throughout. 17:25 ECG was reviewed by the Attending Physician. [facility] Vital Signs: 17:07 BP 135 / 80; Pulse 85; Resp 17; Temp 98.1; Pulse Ox 100% ; Weight 74.84 kg; Height 5 ll1 ft. 6 in. (167.64 cm); Pain 10/10; 17:35 BP 116 / 77; Pulse 90; Resp 26; Pulse Ox 100% ; sv 18:00 BP 108 / 66; Pulse 72; Resp 22; Pulse Ox 95% on R/A; sv 18:37 BP 100 / 65; Pulse 66 MON; Resp 17; Pulse Ox 100% on R/A; sv 19:00 BP 130 / 77; Pulse 74; Resp 18; Temp 98; Pulse Ox 98% ; ea 17:07 Body Mass Index 26.63 (74.84 kg, 167.64 cm) ll1 18:37 Sinus Rhythm sv MDM: 17:10 Patient medically screened. [facility] 18:41 Data reviewed: vital signs, nurses notes. Counseling: I had a detailed discussion with [facility] the patient and/or guardian regarding: the historical points, exam findings, and any diagnostic results supporting the discharge/admit diagnosis, lab results, radiology results, the need for outpatient follow up, to return to the emergency department if symptoms worsen or persist or if there are any questions or concerns that arise at home. ED course: HEART SCORE = 2. CT CHEST is negative. . ED course: Patient is advised to follow up with pcp and otherwise given strict return precautions Patient understood and agrees with the plan of care. . 05/21 17: Order name: Basic Metabolic Panel; Complete Time: 17:56 [facility] 05/21 17:11 Order name: CBC with Diff [facility] 05/21 17:11 Order name: LFT's; Complete Time: 17:56 [facility] 05/21 17:11 Order name: Magnesium; Complete Time: 17:56 [facility] 05/21 17:11 Order name: NT PRO-BNP; Complete Time: 17:56 jmm 05/21 17:11 Order name: PT-INR; Complete Time: 17:52 jmm 05/21 17:11 Order name: Troponin (emerg Dept Use Only); Complete Time: 17:56 jmm 05/21 17:11 Order name: XRAY Chest (1 view); Complete Time: 18:46 jmm 05/21 17:11 Order name: D-Dimer; Complete Time: 17:52 jmm 05/21 17:40 Order name: Urine Dipstick--Ancillary (enter results); Complete Time: 17:52 hb 05/21 17:40 Order name: Urine --Ancillary (enter results); Complete Time: 17:52 hb 05/21 17:52 Order name: CT Chest For PE Angio; Complete Time: 18:46 jmm 05/21 17:11 Order name: EKG; Complete Time: 17:12 jmm 05/21 17:11 Order name: Cardiac monitoring; Complete Time: 17:29 jmm 05/21 17:11 Order name: EKG - Nurse/Tech; Complete Time: 17:29 jmm 05/21 17:11 Order name: IV Saline Lock; Complete Time: 17:29 jmm 05/21 17:11 Order name: Labs collected and sent; Complete Time: 17:29 jmm 05/21 17:11 Order name: O2 Per Protocol; Complete Time: 17:29 jmm 05/21 17:11 Order name: O2 Sat Monitoring; Complete Time: 17:29 jmm 05/21 17:16 Order name: Urine Test (obtain specimen); Complete Time: 17:29 jmm EC:25 Rate is 80 beats/min. Rhythm is regular. QRS [place] is Normal. MI interval is normal. QRS jmm interval is normal. QT interval is normal. No Q waves. T waves are Flattened in lead aVL. No ST changes noted. Reviewed by me. Administered Medications: 17:32 Drug: Ketorolac 30 mg Route: IVP; Site: right antecubital; sv 18:24 Follow up: Response: No adverse reaction sv 18:51 Drug: Valium 5 mg Route: IVP; Site: right antecubital; sv 19:24 Follow up: Response: No adverse reaction ea Disposition: 05/22 18:38 Co-signature as Attending Physician, Zuhair Perdue MD I agree with the assessment and nicole plan of care. Disposition: 05/21/20 18:49 Discharged to Home. Impression: Chest pain, unspecified. - Condition is Stable. - Discharge Instructions: Nonspecific Chest Pain. - Prescriptions for Ibuprofen 800 mg Oral Tablet - take 1 tablet by ORAL route every 8 hours As needed take with food; 30 tablet. orphenadrine citrate 100 mg Oral Tablet Sustained Release - take 1 tablet by ORAL route 2 times per day As needed; 20 tablet. - Medication Reconciliation Form, Thank You Letter, Antibiotic Education, Prescription Opioid Use form. - Follow up: Private Physician; When: 2 - 3 days; Reason: Recheck today's complaints, Continuance of care, Re-evaluation by your physician. Signatures: Dispatcher [employer] Breanne Gonzalez RN Zuhair Brown MD MD cha Mickail, Joel, PA PA jmm Antunez, Elena, RN RN ea Lewis, Lynsay RN RN ll1 Corrections: (The following items were deleted from the chart) 05/21 17:34 17:11 TEST, SERUM+SC.LAB.BRZ ordered. [facility] 19:23 18:49 05/21/2020 18:49 Discharged to Home. Impression: Chest pain, unspecified. ea Condition is Stable. Forms are Medication Reconciliation Form, Thank You Letter, Antibiotic Education, Prescription Opioid Use. Follow up: Private Physician; When: 2 - 3 days; Reason: Recheck today's complaints, Continuance of care, Re-evaluation by your physician. [facility]
[2020-05-21] MEDS ORDERED: DIAZEPAM 10 MG/2 ML INJ SYRINGE ONE (19:00)
[2020-05-21 19:45] VITALS: BP 130/77; TEMP 98; O2SAT 98
[2020-05-21 20:31] LABS: Anisocytosis 1+; Blood Morphology Comment NOTED (NOT SEEN); Hypochromasia 1+; Ovalocytes SLIGHT; Platelet Estimate ADEQ; Poikilocytosis SLIGHT; Polychromasia SLIGHT; White Blood Cell Scan OK (OK)
--- NOTE | 2020-05-23 07:46 | EKG ---
Test Date: 2020-05-21 Test Time: 17:26:18 Contingents Supervisor: KARLA MEASUREMENT RESULTS: Intervals: Rate: 80 AL: 150 QRSD: 86 QT: 392 QTc: 452 [place]: P: 79 AL: 150 QRS: 83 T: 79 INTERPRETIVE STATEMENTS: Normal sinus rhythm Nonspecific ST abnormality Abnormal ECG Compared to ECG 01/27/2015 18:52:34 ST (T wave) deviation now present Sinus tachycardia no longer present Electronically Signed On 05-23-20 07:43:15 CDT by Mirza Aguirre
== END 2020-05-21 19:23 | disposition home or self-care (01) ==
LOC: ER 17:00
DX: R07.9 Chest pain, unspecified (principal); I10 Essential (primary) hypertension
CPT/HCPCS: 36415; 71045; 71275; 80048; 80076; 81003; 81025; 83735; 83880; 84484; 85025; 85379; 85610; 93005; 96374; 96375; 99285; J3360; Q9967

== ENCOUNTER 2020-05-23 22:06 | Emergency (ER) | payer SELFPAY ==
--- OUTSIDE RECORDS SUMMARY | 2020-05-23 22:09 | XMS REPORT | Summary of Care ---
:1995 Author Organization [facility] - Health Address [address] [place] [id number] Care Team Providers Name Role Phone Lauren Torres [facility] Primary Care Provider [phone] Encounter Details Date Type Department Care Team Description 05/22/2020 Orders Only [facility] Doctor Unassigned, [facility] [place] [id number] [address] [place] [phone] Allergies No Known Allergiesdocumented as of this encounter (statuses as of 05/22/2020) Medications Medication Sig Dispensed Refills Start Date End Date Status cephALEXin (KEFLEX) 500 Take 500 mg by 0 Active mg capsule mouth 4 (four) times daily. ibuprofen 800 mg tablet TAKE 1 TABLET BY 0 9 Active MOUTH EVERY 12 HOURS NEEDED FOR PAIN CONTROL norgestimate-ethinyl Take 1 tablet by 1 Package 3 01/14/2019 Active estradiol (ORTHO mouth daily. TRI-CYCLEN LO, 28,) 0.18/0.215/0.25 mg-25 mcg tabletIndications: Corpus luteum cyst or hematoma, General counseling for prescription of oral contraceptives documented as of this encounter (statuses as of 05/22/2020) Active Problems Problem Noted Date Family history of breast cancer 03/04/2019 Overview: Reports grandmother dx at age 46 Well woman exam 01/14/2019 Breast pain 01/14/2019 Corpus luteum cyst or hematoma 01/14/2019 Need for HPV vaccination 01/14/2019 BMI 26.0-26.9,adult 01/14/2019 documented as of this encounter (statuses as of 05/22/2020) Immunizations Name Administration Dates Next Due HPV9 03/04/2019, 01/14/2019 documented as of this encounter Social History Tobacco Use Types Packs/Day Years Used Date Never Smoker Smokeless Tobacco: Never Used Alcohol Use Drinks/Week oz/Week Comments Yes occasional Sex Assigned at Date Recorded Not on file documented as of this encounter Last Filed Vital Signs Not on filedocumented in this encounter Plan of Treatment Health Maintenance Due Date Last Done Comments VARICELLA VACCINES (1 of 2 - 1994 2-dose childhood series) Depression Screening 2005 DTaP,Tdap,and Td Vaccines (1 2012 - Tdap) HPV VACCINES (3 - 3-dose 07/16/2019 03/04/2019, series) 01/14/2019 PAP SMEAR 08/12/2019 08/12/2016 INFLUENZA VACCINE (#1) 2020 PNEUMOCOCCAL 0-64 YEARS Aged Out No longe r eligible based COMBINED SERIES on patient's age to complete this to [facility] documented as of this encounter Procedures Procedure Name Priority Date/Time Associated Diagnosis Comme nts CONSENT/REFUSAL FOR Routine 05/22/2020 9:52 AM CDT DIAGNOSIS AND TREATMENT documented in this encounter Results Not on filedocumented in this encounter Insurance Payer Benefit Plan Subscriber ID Effective Phone Address Typ e / Group Dates [facility] [id number] 2019-Shellie [phone] Medicaid WOMEN nt [address] [place] [address] documented as of this encounter Advance Directives Name Relationship Healthcare Agent Relationship Co mmunication Ana M Doss Mother Health Care Agent [phone] ( Home)
--- OUTSIDE RECORDS SUMMARY | 2020-05-23 22:09 | XMS REPORT | Continuity of Care Document ---
:1995 Author Organization [facility] t Address [address] [place] [address] Care Team Providers Name Role Phone Michael Campos NP Attending Clinician Doctor Unassigned, Name Attending Clinician Unavailable Eli Rodríguez Attending Clinician Problems This patient has no known problems. Allergies, Adverse Reactions, Alerts This patient has no known allergies or adverse reactions. Medications This patient has no known medications. Procedures This patient has no known procedures. Encounters Start End Encounter Admission Attending Care Care Encounter Source Date/Time Date/Time Type Type Clinicians Facility Department ID 2020-05-22 2020-05-22 Emergency [facility] [id number] 10:05:00 12:50:00 Ana Addison [id number] [place] [id number] [place] [id number] 2020-05-22 2020-05-22 Orders Doctor ZORA [id number] 00:00:00 00:00:00 Only Unassigned, KIRA [id number] [place] [facility] [id number] 2019-03-12 2019-03-12 Telephone Melissa [facility] [id number] 00:00:00 00:00:00 Lauren Benitez [employer] [id number] [facility] [id number] MATERNAL [id number] & [address] Results This patient has no known results.
--- OUTSIDE RECORDS SUMMARY | 2020-05-23 22:10 | XMS REPORT | Summary of Care ---
:1995 Author Organization [facility] - [facility] Address [address] [place] [address] Care Team Providers Name Role Phone Lauren Torres [facility] Primary Care Provider [phone] Reason for Referral MRI/CAT Scan (STAT) Status Reason Specialty Diagnoses / Referred By Referred To Procedures Contact Contact New Request Diagnostic Diagnoses Chest pain, unspecified type Drever, Adalid Radiology Procedures CT CHEST PULMONARY ANGIOGRAM CT ANGIOGRAM CHEST G, AEROSPACE MEDICINE PHYSICIAN [address] [address] Radiology Services (STAT) Status Reason Specialty Diagnoses / Referred By Referred To Procedures Contact Contact New Request Diagnostic Diagnoses Chest pain, unspecified type Drever, Adalid Radiology Procedures XR CHEST 1 VW G, AEROSPACE MEDICINE PHYSICIAN [address] [address] Reason for Visit Reason Comments Chest Pain Headache Neck Pain Auth/Cert Status Reason Specialty Diagnoses / Referred By Referred To Procedures Contact Contact Emergency Medicine Diagnoses CHEST PAIN,HEADACHE,ABD PAIN [facility] [address] [place] [address] Fax: Encounter Details Date Type Department Care Team Description 05/22/2020 Emergency [facility]-Emergency Drever, Adalid G, Chest agueda n, unspecified type (Primary Dx); Department AEROSPACE MEDICINE PHYSICIAN Iron deficiency anemia, unspecified iron deficiency anemia type [address] [facility] [address] [place] [address] [id number] [place] [address] [phone] Allergies No Known Allergiesdocumented as of this encounter (statuses as of 05/22/2020) Medications Medication Sig Dispensed Refills Start Date End Date Status cephALEXin (KEFLEX) Take 500 mg 0 05/22/20 20 Discontinued 500 mg capsule by mouth 4 (four) times daily. ibuprofen 800 mg TAKE 1 TABLET 0 01/12/2019 05/22/20 20 Discontinued tablet BY MOUTH EVERY 12 HOURS NEEDED FOR PAIN CONTROL norgestimate-ethinyl Take 1 tablet 1 Package 3 01/14/201905/12 Discontinued estradiol (ORTHO by mouth TRI-CYCLEN LO, 28,) daily. 0.18/0.215/0.25 mg-25 mcg tabletIndications: Corpus luteum cyst [...] Assigned at Date Recorded Not on file COVID-19 Exposure Response Date Recorded In the last month, have you been in contact with No / Unsure 05/22/2020 9:59 AM CDT someone who was confirmed or suspected to have Coronavirus / COVID-19? documented as of this encounter Last Filed Vital Signs Vital Sign Reading Time Taken Comments Blood Pressure 121/85 05/22/2020 11:36 AM CDT Pulse 62 05/22/2020 11:36 AM CDT Temperature 35.9 C (96.6 F) 05/22/2020 10:02 AM CDT Respiratory Rate 16 05/22/2020 11:36 AM CDT Oxygen Saturation 100% 05/22/2020 11:36 AM CDT Inhaled Oxygen Concentration - - Weight 74.8 kg (165 lb) 05/22/2020 10:02 AM CDT Height - - Body Mass Index 26.63 03/04/2019 9:23 AM CDT documented in this encounter Discharge Instructions Adalid Rosario NP - 05/22/2020Diagnosis: Pleuritic chest pain ( unclear source) but no evidence of emergency condition Anemia Recommend you start the NSAID ( Advil or Aleve) , use a heating pad to chest , and follow up at the [facility] ( [facility]) for continued evaluation to rule out other non emergent causes for the pain Start taking and MVI with added iron and eat iron rich foods to promote RBC production Return for acute worsening or any new concern AttachmentsThe following attachments cannot be sent through Care Everywhere. Anemia, Iron-Deficiency (Adult) (Japanese)documented in this encounter ED Notes Joyce Kurtz RN - 05/22/2020 10:00 AM CDTPatient report chest pain for one week she reports that she went to the [facility] and was discharged to follow up with a orange picker. Patient reports that she is here because the chest pain has gotten worse and has started to have a headache and a stiff neck. Denies nausea, vomiting, and or fever documented in this encounter Miscellaneous Notes ED Nurse Note - Joyce Kurtz RN - 05/22/2020 12:49 PM CDTPt given printed and verbal discharge instructions Prescriptions provided none Discussed ibuprofen, Tylenol, and Aleve OTC Pt verbalized understanding of instructions, pt awake alert oriented, resp reg unlabored, skin w/d, color appropriate for race, moves all ext well,pt encouraged to follow up with pcp Advised to seek medical attention for new/prolonged/worsening of symptoms, No adverse reaction to meds given in ER noted upon discharge PIV d'cd, dressing to site, catheter in tact. Awake, alert oriented, resp reg unlabored, skin w/d, pt leaving amb with steady gait, in no apparent distress, documented in this encounter Plan of Treatment Name Type Priority Associated Diagnoses Order S chedule CT CHEST PULMONARY IMAGING STAT Chest pain, unspecifie d ONCE for 1 Occurrences ANGIOGRAM type starting 2019 until 0 Health Maintenance Due Date Last Done Comments VARICELLA VACCINES (1 of 2 - 1994 2-dose childhood series) Depression Screening 2005 DTaP,Tdap,and Td Vaccines (1 2012 - Tdap) HPV VACCINES (3 - 3-dose 07/16/2019 03/04/2019, series) 01/14/2019 PAP SMEAR 08/12/2019 08/12/2016 INFLUENZA VACCINE (#1) 2020 PNEUMOCOCCAL 0-64 YEARS Aged Out No longe r eligible based COMBINED SERIES on patient's age to complete this to pic documented as of this encounter Procedures Procedure Name Priority Date/Time Associated Diagnosis Comme nts XR CHEST 1 VW STAT 05/22/2020 10:46 Chest pain, Results fo r this AM CDT unspecified type procedure a re in the results section. COVID-19 (ID NOW STAT 05/22/2020 10:32 Chest pain, Results for this RAPID TESTING) AM CDT unspecified type procedure are in the results section. POCT TEST Routine 05/22/2020 10:21 Chest pain, Resu lts for this AM CDT unspecified type procedure a re in the results section. URINALYSIS STAT 05/22/2020 10:21 Chest pain, Results for this AM CDT unspecified type procedure a re in the results section. ACTIVATED PARTIAL STAT 05/22/2020 10:21 Chest pain, Result s for this THRMPLAS KHUSHBOO AM CDT unspecified type procedure a re in the results section. D-DIMER STAT 05/22/2020 10:21 Chest pain, Results for this AM CDT unspecified type procedure a re in the results section. PROTHROMBIN TIME / STAT 05/22/2020 10:21 Chest pain, Resul ts for this INR AM CDT unspecified type procedure a re in the results section. CBC WITH DIFF STAT 05/22/2020 10:21 Chest pain, Results fo r this AM CDT unspecified type procedure a re in the results section. COMP. METABOLIC STAT 05/22/2020 10:21 Chest pain, Results for this PANEL (59136) AM CDT unspecified type procedure are in the results section. TROPONIN I STAT 05/22/2020 10:21 Chest pain, Results for this AM CDT unspecified type procedure a re in the results section. LIPASE STAT 05/22/2020 10:21 Chest pain, Results for this AM CDT unspecified type procedure a re in the results section. EKG-12 LEAD STAT 05/22/2020 10:08 AM CDT NOTICE OF PRIVACY Routine 05/22/2020 9:53 PRACTICES AM CDT documented in this encounter Results XR CHEST 1 VW (05/22/2020 10:46 AM CDT) Specimen Impressions Performed At PACS/VR/DOSE No acute cardiopulmonary abnormality. Preliminary Report Dictated by Resident: Salvador Mtz MD., have reviewed this study and agree with the above report. Narrative Performed At XR CHEST 1 VW P[facility]/VR/DOSE Comparison: None available History: chest pain Technique: Frontal radiograph Findings: The lungs are clear. No pleural effusion , focal consolidation, or pneumothorax is identified. The cardiomediastinal silhouette is norm al in size. No acute osseous abnormality is present. Procedure Note [facility], Radiant Results Inft User - 2019 11:19 AM CDT XR CHEST 1 VW Comparison: None available History: chest pain Technique: Frontal radiograph Findings: The lungs are clear. No pleural effusion , focal consolidation, or pneumothorax is identified. The cardiomediastinal silhouette is norm al in size. No acute osseous abnormality is present. IMPRESSION No acute cardiopulmonary abnormality. Preliminary Report Dictated by Resident: Salvador Mtz MD., have reviewed th is study and agree with the above report. Performing Organization Address City/State/Zipcode Phone Number [facility]/VR/DOSE COVID-19 (ID NOW RAPID TESTING) (05/22/2020 10:32 AM CDT) SARS-CoV-2 Rapid ID Not Detected Not Detected [facility] Specimen Swab - NASOPHARYNGEAL SWAB Narrative Performed At [place] [facility] COVID-19 Assay is an isothermal nucleic [facility] acid amplification test intended for the qualitative detection of nucleic acid from SARS-CoV-2 viral RNA in nasopharyngeal (AEROSPACE MEDICINE PHYSICIAN) specimens. It is used under Emergency Use Authorization (EUA) by FDA. The limit of detection (LOD) of the assay is 125 Genome Equivalents/mL. A positive result is indicative of the presence of SARS-CoV-2 RNA. Clinical correlation with patient history and other diagnostic information is necessary to determine patient infection status. A negative (Not Detected) result does not preclude SARS-CoV-2 infection. In patients with clinical symptoms and other tests that are consistent with SARS-CoV-2 infection, negative results should be treated as presumptive negative and a new specimen should be tested with alternative PCR molecular test. Invalid: Please collect a new specimen for repeat patient testing if clinically indicated. Performing Organization Address [facility] Phone Number [facility] CLIA: [id number] [place] [address] [place] [address] D-DIMER (05/22/2020 10:21 AM CDT) [facility] D-DIMER 0.71 (H) <0.41 g/mL (FEU) [facility] Specimen Blood - VENOUS Narrative Performed At This test may be used in conjunction with a [facility] clinical pretest probability (PTP) assessment model to exclude venous thromboembolism (VTE) in patients suspected of deep venous thrombosis (DVT) and pulmonary embolism (PE) A D-Dimer value less than 0.50 g/ml (FEU) has a negative predicative value of 96 to 100% (95% CI)and 97 to 100% (95% CI) as an aid in the diagnosis of deep vein thrombosis (DVT) and pulmonary embolism when there is low or moderate pretest probability of PE or DVT. D-Dimer values are expressed in initial fibrinogen equivalent units (FEU)" The assay results should be used with other information, including the clinical context, in forming a diagnosis. Performing Organization Address [facility] Phone Number [facility] CLIA: [id number] [place] [address] CBC WITH DIFF (05/22/2020 10:21 AM CDT) [facility] WBC 5.01 4.30 - 11.10 [facility] 10*3/L [facility] RBC 4.92 3.93 - 5.25 [facility] 10*6/L [facility] HGB 9.3 (L) 11.6 - 15.0 [facility] g/dL HOSPITAL LAB[facility]ORY HCT 32.9 (L) 35.7 - 45.2 % [facility] MCV 66.9 (L) 80.6 - 95.5 fL [facility] MCH 18.9 (L) 25.9 - 32.8 pg [facility] MCHC 28.3 (L) 31.6 - 35.1 [facility] g/dL [facility] RDW-SD 41.2 39.0 - 49.9 fL [facility] RDW-CV 17.3 (H) 12.0 - 15.5 % [facility] PLT 312 166 - 358 [facility] 10*3/L HOSPITAL LAB[facility]ORY MPV 9.8 9.5 - 12.9 fL [facility] NRBC/100 WBC 0.0 0.0 - 10.0 /100 [facility] WBCs [facility] NRBC x10^3 <0.01 10*3/L [facility] GRAN MAT (NEUT) % 50.9 % [facility] IMM GRAN % 0.20 % [facility] LYMPH % 33.3 % [facility] MONO % 8.4 % [facility] EOS % 5.4 % [facility] BASO % 1.8 % [facility] GRAN MAT x10^3(ANC) 2.55 1.88 - 7.09 [facility] 10*3/uL HOSPITAL LAB[facility]ATORY IMM GRAN x10^3 <0.03 0.00 - 0.06 [facility] 10*3/uL HOSPITAL LAB[facility]ORY LYMPH x10^3 1.67 1.32 - 3.29 [facility] 10*3/uL HOSPITAL LAB[facility]ORY MONO x10^3 0.42 0.33 - 0.92 [facility] 10*3/uL HOSPITAL LAB[facility]ATORY EOS x10^3 0.27 0.03 - 0.39 [facility] 10*3/uL HOSPITAL LAB[facility]ORY BASO x10^3 0.09 (H) 0.01 - 0.07 [facility] 10*3/uL HOSPITAL LAB[facility]ORY Specimen Blood - VENOUS Performing Organization Address City/State/Zipcode Phone Number [facility] CLIA: [id number] [place] [address] LABORATORY [address] [facility] LIPASE, SERUM (05/22/2020 10:21 AM CDT) Pathologist Sig nature LIPASE 32 0 - 220 U/L [facility] Specimen Blood - VENOUS Performing Organization Address City/State/Zipcode Phone Number [facility] CLIA: [id number] [place] [address] LABORATORY [address] [facility] COMP. METABOLIC PANEL (63532) (05/22/2020 10:21 AM CDT) Pathologist Sig nature NA 138 135 - 145 [facility] mmol/L [facility] K 3.7 3.5 - 5.0 [facility] mmol/L [facility] CL 102 98 - 108 mmol/L [facility] CO2 TOTAL 29 23 - 31 mmol/L [facility] AGAP 7 2 - 16 [facility] BUN 7 7 - 23 mg/dL [facility] GLUCOSE 65 (L) 70 - 110 mg/dL [facility] LAB[facility] CREATININE 0.70 0.50 - 1.04 [facility] mg/dL [facility] TOTAL BILI 0.4 0.1 - 1.1 mg/dL [facility] LAB[facility] CALCIUM 9.3 8.6 - 10.6 [facility] mg/dL [facility] T PROTEIN 7.8 6.3 - 8.2 g/dL [facility] ALBUMIN 4.2 3.5 - 5.0 g/dL [facility] LAB[facility] ALK PHOS 79 34 - 122 U/L [facility] ALTv 12 5 - 35 U/L [facility] AST(SGOT) 25 13 - 40 U/L [facility] eGFR Calculation 101.1 mL/min/1.73m2 [facility] (Non-) [facility] LABOR[facility] Y eGFR Calculation 122.6 mL/min/1.73m2 [facility] () [facility] Specimen Blood - VENOUS Narrative Performed At Association of Glomerular Filtration Rate (GFR) [facility] and Staging of Kidney Disease* + + +- + | GFR (mL/min/1.73 m2) | With Kidney Damage | Without Kidney Damage + + +- + | >90 | Stage one | Normal + + +- + | 60-89 | Stage two | Decreased GFR + + +- + | 30-59 | Stage three | Stage three + + +- + | 15-29 | Stage four | Stage four + + +- + | <15 (or dialysis) | Stage five | Stage five + + +- + *Each stage assumes the associated GFR level has been in effect for at least three months. Stages 1 to 5, with or without kidney disease, indicate chronic kidney disease. Notes: Determination of stages one and two (with eGFR >59mL/min/1.73 m2) requires estimation of kidney damage for at least three months as defined by structural or functional abnormalities of the kidney, manifested by either: Pathological abnormalities or Markers of kidney damage (including abnormalities in the composition of the blood or urine or abnormalities in imaging tests). Performing Organization Address [facility] Phone Number [facility] [id number] [place] [address] [address] PROTHROMBIN TIME / INR (05/22/2020 10:21 AM CDT) PROTIME PATIENT 12.5 12.0 - 14.7 [facility] LABORATORY INR 1.0Comment: Normal [facility] INR <1.1; Warfarin [facility] Therapeutic range LABORATORY 2.0 to 3.0 or 2.5 to 3.5, depending upon the indications. Specimen Blood - VENOUS Performing Organization Address [facility] Phone Number [facility] CLIA: [id number] [place] [address] [facility] [address] aPTT (05/22/2020 10:21 AM CDT) Pathologist Sig nature APTT Patient 28 23 - 38 Seconds [facility] LABORATORY Specimen Blood - VENOUS Narrative Performed At The [facility] patient population mean normal value [facility] LABORATORY for aPTT is 30 seconds. Performing Organization Address [facility] Phone Number [facility] CLIA: [id number] [place] [address] [place] [address] Drive TROPONIN I (05/22/2020 10:21 AM CDT) Pathologist Sig nature TROPONIN I <0.012 <=0.034 ng/mL [facility] LAB[facility] Specimen Blood - VENOUS Narrative Performed At Equal or Less than 0.034 ng/ml---Normal [facility] Note: Cardiac troponin begins to rise 3-4 hours after the onset of ischemia. Repeat in 4-6 hours if the sample was drawn within 3-4 hours of the onset of the symptom and found normal. Between 0.035 and 0.120 ng/mL--- Borderline. Questionable myocardial injury or necros is Note: Serial measurement may be necessary to confirm or exclude the diagnosis of myocardial injury or necrosis; Clinical correlation (symptoms, EKGs, imaging studies, and others) required; Repeat in 4-6 hours if clinically indicated. Equal or Higher than 0.121 ng/mL---Abnormal. Myocardial Injury or Necrosis Likely Biotin has been reported to cause a negative bias, interpret results relative to patient's use of biotin. Performing Organization Address City/[facility] Phone Number [facility] CLIA: [id number] [place] [address] POCT Test (05/22/2020 10:21 AM CDT) Pathologist Sig nature POCT PREG negative On board controls acceptable present with C Line POCT PREG LOT # [id number] POCT PREG TEST DATE 2021-04-11 Specimen Urine - URINE, CLEAN CATCH Urinalysis (05/22/2020 10:21 AM CDT) Pathologist Sig nature APPEARANCE Clear Clear [facility] LAB[facility]ATORY COLOR Straw (A) Yellow [facility] PH 6.0 4.8 - 8.0 [facility] LAB[facility] SP GRAVITY 1.008 1.003 - 1.030 [facility] LAB[facility]ORY GLU U QUAL Normal Normal [facility] BLOOD Negative Negative [facility] KETONES Negative Negative [facility] PROTEIN Negative Negative [facility] UROBILIN Normal Normal [facility] BILIRUBIN Negative Negative [facility] NITRITE Negative Negative [facility] LEUK MICHAEL Negative Negative [facility] LAB[facility]ORY RBC/HPF 2 0 - 3 HPF [facility] WBC/HPF <1 0 - 5 HPF [facility] BACTERIA Negative Negative [facility] LAB[facility] SQ EPITH 1 HPF [facility] Specimen Urine - URINE, CLEAN CATCH Performing Organization Address [facility]/State/Zipcode Phone Number [facility] CLIA: [id number] [place] [address] documented in this encounter Visit Diagnoses Diagnosis Chest pain, unspecified type - Primary Iron deficiency anemia, unspecified iron deficiency anemia type documented in this encounter Administered Medications Medication Order MAR Action Action Date Dose Rate Site ketorolac (TORADOL) injection 30 Given 05/22/2020 10:39 AM CDT 3 0 mg mg 30 mg, Slow IV Push, ONCE, 1 dose, 05/22/20 at 1130, 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
[2020-05-24 00:21] LABS: Absolute Lymphocytes (CBC) 1.9 K/uL (0.7-4.9); Basophils % 1.5 % (0-1.3); Hematocrit 27.7 % (36.0-45.0); Lymphocytes % 31.1 % (15.3-44.8); MPV 8.8 fL (7.6-11.3); RBC Red Blood Cell Count 4.37 M/uL (3.86-4.86)
[2020-05-24 00:26] LABS: Protime INR 1.02
[2020-05-24 00:34] LABS: ALT/SGPT 15 U/L (12-78); AST/SGOT 14 U/L (15-37); Albumin 3.6 g/dL (3.4-5.0); Alkaline Phosphatase 82 U/L (45-117); BUN Blood Urea Nitrogen 11 mg/dL (7-18); Bicarbonate 27 mmol/L (21-32); Bilirubin Direct < 0.1 mg/dL (0-0.2); Bilirubin Total 0.1 mg/dL (0.2-1.0); Creatine Phosphokinase 122 U/L (26-192); Glucose Level 98 mg/dL (74-106); Magnesium 2.1 mg/dL (1.8-2.4); NT PRO-BNP 56 pg/mL (<125); Potassium 3.7 mmol/L (3.5-5.1); Protein, Total 7.5 g/dL (6.4-8.2); Sodium Level 140 mmol/L (136-145); Troponin (Emerg Dept Use Only) < 0.02 ng/mL (0.0-0.045)
[2020-05-24 00:40] LABS: Barbiturates NEGATIVE (NEGATIVE); Benzodiazepines POSITIVE (NEGATIVE); Cocaine NEGATIVE (NEGATIVE); METHAMPHETAM NEGATIVE (NEGATIVE); Methadone NEGATIVE (NEGATIVE); Opiates NEGATIVE (NEGATIVE); Phencyclidine NEGATIVE (NEGATIVE); THC Cannibis POSITIVE (NEGATIVE)
[2020-05-24 00:47] LABS: Urine Blood NEGATIVE (NEG); Urine Glucose NEGATIVE (NEG); Urine Protein 1+ (NEG); Urine pH 8.5 (5.0-7.0)
[2020-05-24 00:58] LABS: Blood Morphology Comment NOTED (NOT SEEN); Platelet Estimate ADEQ; White Blood Cell Scan OK (OK)
[2020-05-24] MEDS ORDERED: KETOROLAC 30 MG/ML INJ ONE (01:09)
--- NOTE | 2020-05-24 02:06 | ER ---
Nurse's Notes [facility] Name: Cheyanne Lopes Age: 24 yrs Sex: Female : 1995 Arrival Date: 05/23/2020 Time: 22:07 Bed 5 Private MD: Diagnosis: Chest Wall Pain;Anemia Presentation: 05/23 22:36 Chief complaint: Patient states: See reassessment notes. Coronavirus screen: Client ll2 denies travel out of the [place] in the last 14 days. At this time, the client does not indicate any symptoms associated with coronavirus-19. Ebola Screen: Patient negative for fever greater than or equal to 101.5 degrees Fahrenheit, and additional compatible Ebola Virus Disease symptoms. Initial Sepsis Screen: Does the patient meet any 2 criteria? No. Patient's initial sepsis screen is negative. Does the patient have a suspected source of infection? No. Patient's initial sepsis screen is negative. Risk Assessment: Do you want to hurt yourself or someone else? Patient reports no desire to harm self or others. Onset of symptoms was May 21, 2020. 22:36 Acuity: GERI 4 ll2 22:36 Method Of Arrival: Ambulatory ll2 [employer]: 22:37 LMP 05/13/2020 ll2 Historical: - Allergies: 22:38 No Known Allergies; ll2 - Home Meds: 22:38 None [Active]; ll2 - PMHx: 22:38 Depression; High Blood Pressure; ll2 - PSHx: 22:38 None; ll2 - Immunization history:: Adult Immunizations up to date, Flu vaccine is up to date. - Social history:: Smoking status: Patient/guardian denies using. Screenin:36 Abuse screen: Denies threats or abuse. Nutritional screening: No deficits noted. ll2 Tuberculosis screening: No symptoms or risk factors identified. Fall Risk None identified. Assessment: 22:31 Reassessment: pt states her she was 2 days ago with chest pain and tightness, and SOB, ll2 states she came here, then went to [place] yesterday, and is here because the muscle relaxers they gave her havent worked. states her pain is in her chest and is pressure, with SOB and tingling in the LT arm. General: Appears in no apparent distress. Behavior is calm, cooperative, appropriate for age. Pain: Complains of pain in chest Pain radiates to left arm. Pain: Pain began 2-3 days ago. Neuro: Level of Consciousness is awake, alert, obeys commands, Oriented to person, place, time, situation. Cardiovascular: Capillary refill < 3 seconds Patient's skin is warm and dry. Respiratory: Airway is patent Respiratory effort is even, unlabored, Respiratory pattern is regular, symmetrical. GI: No signs and/or symptoms were reported involving the gastrointestinal system. : No signs and/or symptoms were reported regarding the genitourinary system. EENT: No signs and/or symptoms were reported regarding the EENT system. Derm: Skin is intact, is healthy with good turgor, Skin is dry, Skin is normal, Skin temperature is warm. Musculoskeletal: Circulation, motion, and sensation intact. Range of motion: intact in all extremities. 23:17 Reassessment: Patient and/or family updated on plan of care and expected duration. Pain ll2 level reassessed. Patient is alert, oriented x 3, equal unlabored respirations, skin warm/dry/pink. 05/24 00:20 Reassessment: Patient is alert, oriented x 3, equal unlabored respirations, skin ll2 warm/dry/pink. pt requested pain medicine, verbal order obtained from ERD. 01:32 Reassessment: Patient and/or family updated on plan of care and expected duration. Pain ll2 level reassessed. Patient is alert, oriented x 3, equal unlabored respirations, skin warm/dry/pink. 01:41 Reassessment: pt states her pain is lowered after administration of Toradol. ll2 Vital Signs: 05/23 22:35 BP 117 / 76; Pulse 79; Resp 17; Temp 97.7; Pulse Ox 100% on R/A; ll2 23:47 BP 114 / 68; Pulse 61; Resp 16; Pulse Ox 100% on R/A; ll2 05/24 01:01 BP 119 / 77; Pulse 58; Resp 17; Pulse Ox 100% on R/A; Pain 9/10; ll2 ED Course: 05/23 22:07 Patient arrived in ED. am2 22:26 Tiffany Husain RN is Primary Nurse. ll2 22:35 Naga Willard MD is Attending Physician. 7 22:37 Triage completed. ll2 22:37 Patient has correct armband on for positive identification. Placed in gown. Bed in low ll2 position. Call light in reach. Side rails up X 1. Pulse ox on. NIBP on. 22:37 Arm band placed on right wrist. EKG completed in triage. Results shown to MD. ll2 23:46 Basic Metabolic Panel Sent. ll2 23:47 CBC with Diff Sent. ll2 23:47 LFT's Sent. ll2 23:47 Initial lab(s) drawn, by me, sent to lab. Inserted saline lock: 20 gauge in left ll2 antecubital area, using aseptic technique. Blood collected. 23:54 Magnesium Sent. ll2 23:55 XRAY Chest (1 view) In Process Unspecified. EDMS 23:55 Patient maintains SpO2 saturation greater than 95% on room air. ll2 05/24 01:37 No provider procedures requiring assistance completed. ll2 01:51 PT-INR Sent. ll2 01:51 NT PRO-BNP Sent. ll2 02:22 IV discontinued, intact, bleeding controlled, No redness/swelling at site. Pressure ll2 dressing applied. Administered Medications: 01:00 Drug: TORadol 30 mg Route: IVP; Site: left antecubital; ll2 01:20 Follow up: Response: No adverse reaction ll2 Outcome: 02:05 Discharge ordered by . 7 02:22 Discharged to home ambulatory. ll2 02:22 Condition: stable 02:22 Discharge instructions given to patient, Instructed on discharge instructions, follow up and referral plans. medication usage, Demonstrated understanding of instructions, follow-up care, medications, Prescriptions given X 1. 02:22 Patient left the ED. ll2 Signatures: Dispatcher [employer] EDKY Kailey Hinton am2 Tiffany Husain, MINE RN ll2 Naga Willard MD MD 7
--- NOTE | 2020-05-24 02:06 | EDPHYS ---
Physician Documentation [facility] Name: Cheyanne Lopes Age: 24 yrs Sex: Female : 1995 Arrival Date: 05/23/2020 Time: 22:07 Bed 5 Private MD: ED Physician Naga Willard HPI: 05/23 23:55 This 24 yrs old Black Female presents to ER via Ambulatory with complaints of Chest mh7 Pain, Shortness Of Breath, Cough. 23:55 The patient or guardian reports chest pain that is located primarily in the substernal mh7 area. The pain does not radiate. 23:55 Associated signs and symptoms: Pertinent positives: shortness of breath, Pertinent mh7 negatives: abdominal pain, cough, diaphoresis, dizziness, headache, lower extremity pain, lower extremity swelling, lightheadedness, nausea, near syncope, palpitations, recent travel, syncope, vomiting. The chest pain is described as sharp. Duration: The patient or guardian reports multiple episodes, that are intermittent, that wax and wane. Modifying factors: The symptoms are alleviated by nothing. the symptoms are aggravated by nothing. Severity of pain: At its worst the pain was moderate yesterday, in the emergency department the pain has improved moderately. The patient has experienced similar episodes in the past, multiple times. Patient states that she has had chest pain for 3 weeks. She was seen here 2 days ago and normal tests. She went to another facility yesterday without significant test results as well.. TARGETEER: 22:37 LMP 05/13/2020 ll2 Historical: - Allergies: 22:38 No Known Allergies; ll2 - Home Meds: 22:38 None [Active]; ll2 - PMHx: 22:38 Depression; High Blood Pressure; ll2 - PSHx: 22:38 None; ll2 - Immunization history:: Adult Immunizations up to date, Flu vaccine is up to date. - Social history:: Smoking status: Patient/guardian denies using. ROS: 23:55 Constitutional: Negative for fever, chills, and weight loss, Eyes: Negative for injury, mh7 pain, redness, and discharge, ENT: Negative for injury, pain, and discharge, Neck: Negative for injury, pain, and swelling, Abdomen/GI: Negative for abdominal pain, nausea, vomiting, diarrhea, and constipation, Back: Negative for injury and pain, : Negative for injury, bleeding, discharge, and swelling, MS/Extremity: Negative for injury and deformity, Skin: Negative for injury, rash, and discoloration, Neuro: Negative for headache, weakness, numbness, tingling, and seizure, Psych: Negative for depression, anxiety, suicide ideation, homicidal ideation, and hallucinations, Allergy/Immunology: Negative for hives, rash, and allergies, Endocrine: Negative for neck swelling, polydipsia, polyuria, polyphagia, and marked weight changes, Hematologic/Lymphatic: Negative for swollen nodes, abnormal bleeding, and unusual bruising. Exam: 23:55 Constitutional: This is a well developed, well nourished patient who is awake, alert, mh7 and in no acute distress. Head/Face: Normocephalic, atraumatic. Eyes: Pupils equal round and reactive to light, extra-ocular motions intact. Lids and lashes normal. Conjunctiva and sclera are non-icteric and not injected. Cornea within normal limits. Periorbital areas with no swelling, redness, or edema. Neck: Trachea midline, no thyromegaly or masses palpated, and no cervical lymphadenopathy. Supple, full range of motion without nuchal rigidity, or vertebral point tenderness. No Meningismus. 23:55 Cardiovascular: Regular rate and rhythm with a normal S1 and S2. No gallops, murmurs, or rubs. Normal PMI, no JVD. No pulse deficits. Respiratory: Lungs have equal breath sounds bilaterally, clear to auscultation and percussion. No rales, rhonchi or wheezes noted. No increased work of breathing, no retractions or nasal flaring. Abdomen/GI: Soft, non-tender, with normal bowel sounds. No distension or tympany. No guarding or rebound. No evidence of tenderness throughout. Back: No spinal tenderness. No costovertebral tenderness. Full range of motion. Skin: Warm, dry with normal turgor. Normal color with no rashes, no lesions, and no evidence of cellulitis. MS/ Extremity: Pulses equal, no cyanosis. Neurovascular intact. Full, normal range of motion. Neuro: Awake and alert, GCS 15, oriented to person, place, time, and situation. Cranial nerves II-XII grossly intact. Motor strength 5/5 in all extremities. Sensory grossly intact. Cerebellar exam normal. Normal gait. Psych: Awake, alert, with orientation to person, place and time. Behavior, mood, and affect are within normal limits. 23:55 Chest/axilla: Inspection: normal, Palpation: tenderness, that is moderate, of the mid-sternal area, that totally reproduces the patient's complaints. Vital Signs: 22:35 BP 117 / 76; Pulse 79; Resp 17; Temp 97.7; Pulse Ox 100% on R/A; ll2 23:47 BP 114 / 68; Pulse 61; Resp 16; Pulse Ox 100% on R/A; ll2 05/24 01:01 BP 119 / 77; Pulse 58; Resp 17; Pulse Ox 100% on R/A; Pain 9/10; ll2 MDM: 05/23 23:26 Patient medically screened. [facility] 05/24 02:03 Differential diagnosis: acute myocardial infarction, acute pericarditis, anxiety, chest 7 wall pain, costochondritis, myocarditis, pericarditis, pleurisy, pneumonia, pneumothorax. HEART Score: History: Slightly Suspicious (0), ECG: Normal (0), Age: < or = 45 years (0), Risk Factors: No Risk Factors Known (0), Troponin: < or = 1 x Normal Limit (0), Total Score = 0. Data reviewed: vital signs, nurses notes, old medical records, lab test result(s), cardiac enzymes, CBC, drug level(s), electrolytes, urinalysis, EKG, radiologic studies, plain films. Data interpreted: Pulse oximetry: on room air is 100 %. Interpretation: normal. Counseling: I had a detailed discussion with the patient and/or guardian regarding: the historical points, exam findings, and any diagnostic results supporting the discharge/admit diagnosis, lab results, radiology results, the need for outpatient follow up, to return to the emergency department if symptoms worsen or persist or if there are any questions or concerns that arise at home. Response to treatment: the patient's symptoms have resolved after treatment, the patient's blood pressure is in an acceptable range, mental status has returned to baseline, the patient no longer shows bradycardia, the patient is not short of breath, the patient is not tachycardic, the patient's pain is gone, the patient's temperature has normalized. 05/23 23:31 Order name: Basic Metabolic Panel; Complete Time: 00:50 05/23 23:31 Order name: CBC with Diff; Complete Time: 01:15 05/23 23:31 Order name: LFT's; Complete Time: 00:50 05/23 23:31 Order name: Magnesium; Complete Time: 00:50 05/23 23:31 Order name: NT PRO-BNP; Complete Time: 00:50 05/23 23:31 Order name: PT-INR; Complete Time: 00:50 05/23 23:31 Order name: Troponin (emerg Dept Use Only); Complete Time: 00:50 05/23 23:31 Order name: Basic Metabolic Panel [facility] 05/23 23:31 Order name: CBC with Diff [facility] 05/23 23:31 Order name: LFT's [facility] 05/23 23:31 Order name: Magnesium [facility] 05/23 23:31 Order name: NT PRO-BNP [facility] 05/23 23:31 Order name: PT-INR [facility] 05/23 23:31 Order name: EKG; Complete Time: 23:32 05/23 23:31 Order name: Cardiac monitoring; Complete Time: 23:31 05/23 23:31 Order name: EKG - Nurse/Tech; Complete Time: 23:31 05/23 23:31 Order name: IV Saline Lock; Complete Time: 23:47 05/23 23:31 Order name: Labs collected and sent; Complete Time: 23:47 05/23 23:31 Order name: O2 Per Protocol; Complete Time: 23:31 05/23 23:31 Order name: O2 Sat Monitoring; Complete Time: 23:31 05/23 23:31 Order name: XRAY Chest (1 view) [facility] 05/23 23:31 Order name: EKG; Complete Time: 23:[address] [facility] 05/23 23:31 Order name: CPK; Complete Time: 00:[address] [facility] 05/23 23:31 Order name: UDS; Complete Time: 00:[address] [facility] 05/23 23:56 Order name: Urine Dipstick--Ancillary (enter results); Complete Time: 00:50 [facility] 05/23 23:56 Order name: Urine --Ancillary (enter results); Complete Time: 00:50 [facility] 05/24 00:22 Order name: CBC Smear Scan; Complete Time: 01:15 EDMS 05/23 23:31 Order name: Cardiac monitoring; Complete Time: :51 7 05/23 23:31 Order name: EKG - Nurse/Tech; Complete Time: :51 mh7 05/23 23:31 Order name: IV Saline Lock; Complete Time: :51 7 05/23 23:31 Order name: Labs collected and sent; Complete Time: :51 mh7 05/23 23:31 Order name: O2 Per Protocol; Complete Time: :51 mh7 05/23 23:31 Order name: O2 Sat Monitoring; Complete Time: :51 7 05/23 23:31 Order name: Urine Dipstick-Ancillary (obtain specimen); Complete Time: 23:46 mh7 05/23 23:31 Order name: Urine Test (obtain specimen); Complete Time: 23:46 mh7 Administered Medications: 01:00 Drug: TORadol 30 mg Route: IVP; Site: left antecubital; 2 01:20 Follow up: Response: No adverse reaction 2 Disposition: 05/24/20 02:05 Discharged to Home. Impression: Chest Wall Pain, Anemia. - Condition is Stable. - Discharge Instructions: Anemia, Nonspecific, Chest Wall Pain, [id number]. - Prescriptions for ketorolac 10 mg Oral tablet - take 1 tablet by ORAL route every 8 hours As needed not to exceed 40 mg in 24hrs; 15 tablet. - Medication Reconciliation Form, Thank You Letter, Antibiotic Education, Prescription Opioid Use form. - Follow up: Private Physician; When: 1 - 2 days; Reason: Worsening of condition, Recheck today's complaints, Continuance of care, Re-evaluation by your physician. - Problem is an ongoing problem. - Symptoms have improved. Signatures: Dispatcher [employer] EDNellie rEickson RN Tiffany Feldman ea, RN RN 2 Naga Willard MD MD 7 Corrections: (The following items were deleted from the chart) 05/23 23:35 23:32 Chest Single View+RAD.RAD.BRZ ordered. EDNM EDMS 05/24 01:52 05/23 23:32 TROPONIN (EMERG DEPT USE ONLY)+C.LAB.BRZ ordered. EDMS EDMS 05/24 02:22 02:05 05/24/2020 02:05 Discharged to Home. Impression: Chest Wall Pain; Anemia. ll2 Condition is Stable. Forms are Medication Reconciliation Form, Thank You Letter, Antibiotic Education, Prescription Opioid Use. Follow up: Private Physician; When: 1 - 2 days; Reason: Worsening of condition, Recheck today's complaints, Continuance of care, Re-evaluation by your physician. Problem is an ongoing problem. Symptoms have improved. mh7
[2020-05-24 02:28] VITALS: TEMP 97.7; O2SAT 100
[2020-05-24 02:32] VITALS: BP 119/77
--- NOTE | 2020-05-24 15:16 | RAD REPORT ---
EXAM DESCRIPTION: Chest Single View CLINICAL HISTORY: 4 years Female, CHEST PAIN COMPARISON: Chest radiograph dated May 21, 2020 FINDINGS: No focal lung consolidation. No pleural effusion. No pneumothorax. Cardiomediastinal silhouette is within normal limits. No acute osseous abnormality. IMPRESSION: No acute cardiopulmonary disease. Electronically signed by: Magdaleno Norman DO 05/24/2020 1:11 AM CDT Due to temporary technical issues with the PACS/Fluency reporting system, reports are being signed by the in house radiologist without review as a courtesy to ensure prompt reporting. The interpreting r adiologist is fully responsible for the content of the report.
--- NOTE | 2020-05-25 07:15 | EKG ---
Test Date: 2020-05-23 Test Time: 22:28:49 Cribbing Setter: SEMAJ MEASUREMENT RESULTS: Intervals: Rate: 73 HI: 154 QRSD: 82 QT: 400 QTc: 440 [place]: P: 62 HI: 154 QRS: 62 T: 30 INTERPRETIVE STATEMENTS: Normal sinus rhythm Normal ECG Compared to ECG 05/21/2020 17:26:18 ST (T wave) deviation no longer present Electronically Signed On 05-25-20 07:13:41 CDT by Mirza Aguirre
== END 2020-05-24 02:22 | disposition home or self-care (01) ==
LOC: ER 22:06
DX: R07.89 Other chest pain (principal); D64.9 Anemia, unspecified
CPT/HCPCS: 36415; 71045; 80048; 80076; 80307; 81003; 81025; 82550; 83735; 83880; 84484; 85025; 85610; 93005; 96374; 99284

== ENCOUNTER 2020-05-30 15:19 | Emergency (ER) | payer SELFPAY ==
--- OUTSIDE RECORDS SUMMARY | 2020-05-30 15:21 | XMS REPORT | Continuity of Care Document ---
:1995 Author Organization [facility] t Address [address] [place] [address] [address]. [address] [place] [address] Care Team Providers Name Role Phone Michael [...] Clinicians Facility Department ID 2020-05-22 2020-05-22 Emergency [facility] [id number] 10:05:00 12:50:00 Ana Addison [id number] [place] [id number] [place] [id number] 2020-05-22 2020-05-22 Orders Doctor ZORA [id number] 00:00:00 00:00:00 Only Unassigned, KIRA [id number] [place] [facility] [id number] 2019-03-12 2019-03-12 Telephone Melissa [facility] [id number] 00:00:00 00:00:00 Lauren Benitez INSURANCE SALESMAN [id number] [facility] [id number] MATERNAL [id number] & [address] Results This patient has no known results.
--- OUTSIDE RECORDS SUMMARY | 2020-05-30 15:21 | XMS REPORT | Summary of Care ---
:1995 Author Organization [facility] - Health Address [address] [place] [id number] Care Team Providers Name Role Phone Lauren Torres [facility] Primary Care Provider [phone] Encounter Details Date Type Department Care Team Description 05/22/2020 Orders Only [facility] Doctor Unassigned, No [facility] [place] [id number] [address] [place] [id number] Allergies No Known Allergiesdocumented as of this [...] on patient's age to complete this to [facility] documented as of this encounter Procedures Procedure Name Priority Date/Time Associated Diagnosis Comme nts CONSENT/REFUSAL FOR Routine 05/22/2020 9:52 AM CDT DIAGNOSIS AND TREATMENT documented in this encounter Results Not on filedocumented in this encounter Insurance Payer Benefit Plan Subscriber ID Effective Phone Address Typ e / Group Dates [facility] [id number] 2019-Shellie [phone] Medicaid WOMEN nt [address] [place] [address] documented as of this encounter Advance Directives Name Relationship Healthcare Agent Relationship Co mmunication Ana M Doss Mother Health Care Agent [phone] ( Home)
--- OUTSIDE RECORDS SUMMARY | 2020-05-30 15:21 | XMS REPORT | Summary of Care ---
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 [address] [address] Radiology Services (STAT) Status Reason Specialty Diagnoses / Referred By Referred To Procedures Contact Contact New Request Diagnostic Diagnoses Chest pain, unspecified type Drever, Adalid Radiology Procedures XR CHEST 1 VW G, GAME DESIGN INSTRUCTOR [address] [address] Reason for Visit Reason Comments Chest Pain Headache Neck Pain Auth/Cert Status Reason Specialty Diagnoses / Referred By Referred To Procedures Contact Contact Emergency Medicine Diagnoses CHEST PAIN,HEADACHE,ABD PAIN [facility] [address] [place] [address] Fax: Encounter Details Date Type Department Care Team Description 05/22/2020 Emergency ADC-Emergency Drever, Adalid G, Chest agueda n, unspecified type (Primary Dx); Department GAME DESIGN INSTRUCTOR Iron deficiency anemia, unspecified iron deficiency anemia type [address] [facility] [address] [place] [address] [id number] [place] [address] [phone] Allergies No Known Allergiesdocumented as of this [...] chest , and follow up at the [facility]) for continued evaluation to rule out other [...] she reports that she went to the [facility] and was discharged to follow up with a clinical manager. Patient reports that she is here because [...] 10:21 Chest pain, Results for this PANEL (04100) AM CDT unspecified type procedure are in [...] report. Performing Organization Address City/State/Zipcode Phone Number [facility]/VR/DOSE COVID-19 (ID NOW RAPID TESTING) (05/22/2020 10:32 AM CDT) SARS-CoV-2 Rapid ID Not Detected Not Detected [facility] Specimen Swab - NASOPHARYNGEAL SWAB Narrative Performed At AL NOW COVID-19 Assay is an isothermal nucleic [facility] acid amplification test intended for the qualitative detection of nucleic acid from SARS-CoV-2 viral RNA in nasopharyngeal (GAME DESIGN INSTRUCTOR) specimens. It is used under Emergency Use [...] testing if clinically indicated. Performing Organization Address [facility] Cent[facility]ode Phone Number [facility] CLIA: [id number] [place] [address] [place] [address] D-DIMER (05/22/2020 10:21 AM CDT) [facility] D-DIMER 0.71 (H) <0.41 g/mL (FEU) [facility] Specimen Blood - VENOUS Narrative Performed At This test may be used in conjunction with a [facility] clinical pretest probability (PTP) assessment [...] in forming a diagnosis. Performing Organization Address [facility] Centercode Phone Number [facility] CLIA: [id number] [place] [address] CBC WITH DIFF (05/22/2020 10:21 AM CDT) [facility] WBC 5.01 4.30 - 11.10 [facility] 10*3/L [facility] RBC 4.92 3.93 - 5.25 [facility] 10*6/L [facility] HGB 9.3 (L) 11.6 - 15.0 [facility] g/dL HOSPITAL LAB[facility]ATORY HCT 32.9 (L) 35.7 - 45.2 % [facility] MCV 66.9 (L) 80.6 - 95.5 fL [facility] MCH 18.9 (L) 25.9 - 32.8 pg [facility] MCHC 28.3 (L) 31.6 - 35.1 [facility] g/dL [facility] RDW-SD 41.2 39.0 - 49.9 fL [facility] RDW-CV 17.3 (H) 12.0 - 15.5 % [facility] PLT 312 166 - 358 [facility] 10*3/L HOSPITAL LABORATORY MPV 9.8 9.5 - 12.9 fL [facility] NRBC/100 WBC 0.0 0.0 - 10.0 /100 [facility] WBCs [facility] NRBC x10^3 <0.01 10*3/L [facility] GRAN MAT (NEUT) % 50.9 % [facility] IMM GRAN % 0.20 % [facility] LYMPH % 33.3 % [facility] MONO % 8.4 % [facility] EOS % 5.4 % [facility] BASO % 1.8 % [facility] GRAN MAT x10^3(ANC) 2.55 1.88 - 7.09 [facility] 10*3/uL HOSPITAL LABORATORY IMM GRAN x10^3 <0.03 0.00 - 0.06 [facility] 10*3/uL HOSPITAL LAB[facility]ORY LYMPH x10^3 1.67 1.32 - 3.29 [facility] 10*3/uL HOSPITAL LAB[facility]ORY MONO x10^3 0.42 0.33 - 0.92 [facility] 10*3/uL HOSPITAL LABORATORY EOS x10^3 0.27 0.03 - 0.39 [facility] 10*3/uL HOSPITAL LAB[facility]ATORY BASO x10^3 0.09 (H) 0.01 - 0.07 [facility] 10*3/uL HOSPITAL LAB[facility]ORY Specimen Blood - VENOUS Performing Organization Address City/State/Zipcode Phone Number [facility] CLIA: [id number] [place] [address] LABORATORY [address] [facility] LIPASE, SERUM (05/22/2020 10:21 AM CDT) Pathologist Sig nature LIPASE 32 0 - 220 U/L [facility] Specimen Blood - VENOUS Performing Organization Address City/State/Zipcode Phone Number [facility] CLIA: [id number] [place] [address] LABORATORY [address] [facility] COMP. METABOLIC PANEL (73244) (05/22/2020 10:21 AM CDT) Pathologist Sig nature NA 138 135 - 145 [facility] mmol/L [facility] K 3.7 3.5 - 5.0 [facility] mmol/L [facility] CL 102 98 - 108 mmol/L [facility] CO2 TOTAL 29 23 - 31 mmol/L [facility] AGAP 7 2 - 16 [facility] BUN 7 7 - 23 mg/dL [facility] GLUCOSE 65 (L) 70 - 110 mg/dL [facility] CREATININE 0.70 0.50 - 1.04 [facility] mg/dL [facility] TOTAL BILI 0.4 0.1 - 1.1 mg/dL [facility] CALCIUM 9.3 8.6 - 10.6 [facility] mg/dL [facility] T PROTEIN 7.8 6.3 - 8.2 g/dL [facility] ALBUMIN 4.2 3.5 - 5.0 g/dL [facility] ALK PHOS 79 34 - 122 U/L [facility] ALTv 12 5 - 35 U/L [facility] AST(SGOT) 25 13 - 40 U/L [facility] eGFR Calculation 101.1 mL/min/1.73m2 [facility] (Non-) [facility] LABORATOR Y eGFR Calculation 122.6 mL/min/1.73m2 [facility] () [facility] Specimen Blood - VENOUS Narrative Performed At Association of Glomerular Filtration Rate (GFR) [facility] and Staging of Kidney Disease* [...] abnormalities in imaging tests). Performing Organization Address [facility] Centercode Phone Number [facility] [id number] [place] [address] LABORAT[address] PROTHROMBIN TIME / INR (05/22/2020 10:21 AM CDT) PROTIME PATIENT 12.5 12.0 - 14.7 [facility] LABORATORY INR 1.0Comment: Normal [facility] INR <1.1; Warfarin [facility] Therapeutic range LABORATORY 2.0 to 3.0 or 2.5 to 3.5, depending upon the indications. Specimen Blood - VENOUS Performing Organization Address [facility] Centercook Phone Number [facility] CLIA: [id number] [place] [address] LAB[address] [facility] [address] aPTT (05/22/2020 10:21 AM CDT) Pathologist Sig nature APTT Patient 28 23 - 38 Seconds [facility] Specimen Blood - VENOUS Narrative Performed At The [facility] patient population mean normal value [facility] for aPTT is 30 seconds. Performing Organization Address [facility] Centercode Phone Number [facility] CLIA: [id number] [place] [address] [place] [address] Drive TROPONIN I (05/22/2020 10:21 AM CDT) Pathologist Sig nature TROPONIN I <0.012 <=0.034 ng/mL [facility] Specimen Blood - VENOUS Narrative Performed At Equal or Less than 0.034 ng/ml---Normal [facility] Note: Cardiac troponin begins to [...] patient's use of biotin. Performing Organization Address City/[facility] Phone Number [facility] CLIA: [id number] [place] [address] POCT Test (05/22/2020 10:21 AM CDT) Pathologist Sig nature POCT PREG negative On board controls acceptable present with C Line POCT PREG LOT # [id number] POCT PREG TEST DATE 2021-04-11 Specimen Urine - URINE, CLEAN CATCH Urinalysis (05/22/2020 10:21 AM CDT) Pathologist Sig nature APPEARANCE Clear Clear [facility] COLOR Straw (A) Yellow [facility] PH 6.0 4.8 - 8.0 [facility] SP GRAVITY 1.008 1.003 - 1.030 [facility] GLU U QUAL Normal Normal [facility] BLOOD Negative Negative [facility] KETONES Negative Negative [facility] PROTEIN Negative Negative [facility] UROBILIN Normal Normal [facility] BILIRUBIN Negative Negative [facility] NITRITE Negative Negative [facility] LEUK MICHAEL Negative Negative [facility] RBC/HPF 2 0 - 3 HPF [facility] WBC/HPF <1 0 - 5 HPF [facility] BACTERIA Negative Negative [facility] SQ EPITH 1 HPF [facility] Specimen Urine - URINE, CLEAN CATCH Performing Organization Address [facility]/State/Zipcode Phone Number [facility] CLIA: [id number] [place] [address] documented in this [...] ONCE, 1 dose, 05/22/20 at 1130, Routine, membership coordinator approving Restricted medication: ADALID BOO morpHINE injection [...] Ana M Doss Mother Health Care Agent [phone] ( Home)
[2020-05-30 16:57] LABS: Absolute Lymphocytes (CBC) 2.2 K/uL (0.7-4.9); Basophils % 0.2 % (0-1.3); Hematocrit 29.9 % (36.0-45.0); MPV 8.8 fL (7.6-11.3); RBC Red Blood Cell Count 4.75 M/uL (3.86-4.86)
[2020-05-30] MEDS ORDERED: NA CHLORIDE 0.9% 2,000 ML ONE (17:05)
[2020-05-30] MEDS ORDERED: ONDANSETRON 4 MG/2 ML VIAL ONE (17:05)
[2020-05-30] MEDS ORDERED: DICYCLOMINE HCL 20 MG/2 ML AMP IM ONE (17:05)
[2020-05-30] MEDS ORDERED: PANTOPRAZOLE 40 MG INJ ONE (17:05)
[2020-05-30 17:17] LABS: ALT/SGPT 16 U/L (12-78); AST/SGOT 14 U/L (15-37); Albumin 3.7 g/dL (3.4-5.0); Alkaline Phosphatase 80 U/L (45-117); BUN Blood Urea Nitrogen 9 mg/dL (7-18); Bicarbonate 27 mmol/L (21-32); Bilirubin Direct < 0.1 mg/dL (0-0.2); Bilirubin Total 0.2 mg/dL (0.2-1.0); Glucose Level 87 mg/dL (74-106); Lipase 62 U/L (73-393); Potassium 3.7 mmol/L (3.5-5.1); Protein, Total 8.1 g/dL (6.4-8.2); Sodium Level 138 mmol/L (136-145)
[2020-05-30 17:31] LABS: Urine Blood NEGATIVE (NEG); Urine Glucose NEGATIVE (NEG); Urine Protein NEGATIVE (NEG); Urine Specific Gravity 1.015 (1.005-1.030)
--- NOTE | 2020-05-30 17:32 | RAD REPORT ---
EXAM DESCRIPTION: CT - Abdomen Pelvis W Contrast - 05/30/2020 5:22 pm CLINICAL HISTORY: lower abdomen pain COMPARISON: Abdomen Pelvis W Contrast dated 01/11/2019 TECHNIQUE: Biphasic, helical CT imaging of the abdomen and pelvis was performed following 100 ml non -ionic IV contrast. No oral contrast administered. All CT scans are performed using dose optimization technique as appropriate and may include automated exposure control or mA/KV adjustment according to patient size. FINDINGS: No suspicious findings in the lung bases. The liver, spleen, and pancreas show no suspicious findings. Gallbladder and biliary tree are also wi thout suspicious finding. Symmetric renal function is seen with no hydronephrosis or suspicious renal mass. No pyelonephritis o r acute parenchymal process. No bladder abnormalities. No adrenal abnormalities. Uterus and ovaries s how no suspicious findings. No dilated bowel loops or bowel wall thickening. Appendix is normal. No free air or pneumatosis. Trac e amounts of free fluid in the pelvis within physiologic limits. No hernia, mass or bulky lymphadeno wanda. No suspicious bony findings. IMPRESSION: Contrast enhanced CT abdomen and pelvis showing no significant or suspicious finding.
--- NOTE | 2020-05-30 18:00 | EDPHYS ---
Physician Documentation [facility] Name: Cheyanne Lopes Age: 24 yrs Sex: Female : 1995 Arrival Date: 05/30/2020 Time: 15:23 Bed 20 Private MD: ED Physician Ganga Mclean HPI: 05/30 16:40 This 24 yrs old Black Female presents to ER via EMS with complaints of Abdominal Pain. cp 16:40 The patient presents with abdominal pain mid and lower abdomen. cp 16:40 Onset: The symptoms/episode began/occurred 3 day(s) ago. cp 16:40 Associated signs and symptoms: Pertinent positives: constipation, Pertinent negatives: cp chest pain, diarrhea, dysuria, fever, hematuria, vaginal discharge, vomiting. The symptoms are described as waxing/waning. The patient has experienced similar episodes in the past, multiple times. 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 - Social history:: Smoking status: . ROS: 16:45 Abdomen/GI: Positive for abdominal pain, nausea and vomiting, constipation, cp hematemesis, Negative for diarrhea, black/tarry stool, rectal bleeding. 16:45 Back: Positive for flank pain, on the right. cp 16:45 : Negative for urinary symptoms. 16:45 Constitutional: Negative for body aches, chills, fever, poor PO intake. cp 16:45 Eyes: Negative for injury, pain, redness, and discharge. cp 16:45 ENT: Negative for ear pain, sore throat, difficulty swallowing, difficulty handling secretions. 16:45 Respiratory: Negative for cough, shortness of breath, wheezing. 16:45 Neuro: Negative for altered mental status, headache, syncope, weakness. 16:45 All other systems are negative. Exam: 16:50 Constitutional: The patient appears in no acute distress, alert, awake, non-toxic, well cp developed, well nourished. 16:50 Head/Face: Normocephalic, atraumatic. cp 16:50 Eyes: Periorbital structures: appear normal, Conjunctiva: normal, no exudate, no injection, Sclera: no appreciated abnormality, Lids and lashes: appear normal, bilaterally. 16:50 ENT: External ear(s): are unremarkable, Nose: is normal, Mouth: Lips: moist, Oral mucosa: moist, Posterior pharynx: Airway: no evidence of obstruction, patent. 16:50 Chest/axilla: Inspection: normal, Palpation: is normal, no crepitus, no tenderness. 16:50 Cardiovascular: Rate: normal, Rhythm: regular. 16:50 Respiratory: the patient does not display signs of respiratory distress, Respirations: normal, no use of accessory muscles, no retractions, labored breathing, is not present, Breath sounds: are clear throughout, no decreased breath sounds. 16:50 Abdomen/GI: Inspection: abdomen appears normal, Bowel sounds: active, all quadrants, Palpation: soft, in all quadrants, moderate abdominal tenderness, in the umbilical area, right lower quadrant and left lower quadrant, rebound tenderness, is not appreciated, voluntary guarding, is not appreciated, involuntary guarding, is not appreciated. 16:50 Back: CVA tenderness, is absent. 16:50 Skin: no rash present. 16:50 Neuro: Orientation: to person, place \\T\\ time. Mentation: is normal. Vital Signs: 15:32 BP 115 / 84; Pulse 89; Resp 16; Temp 98.8; Pulse Ox 100% ; Weight 70.76 kg; Height 5 sv ft. 6 in. (167.64 cm); 17:00 BP 117 / 82; Pulse 61; Resp 17; Pulse Ox 96% on R/A; tw2 18:03 BP 122 / 76; Pulse 56; Resp 16; Pulse Ox 100% on R/A; tw2 15:32 Body Mass Index 25.18 (70.76 kg, 167.64 cm) sv MDM: 16:03 Patient medically screened. cp 17:00 Differential diagnosis: appendicitis, cholecystitis, Cholelithiasis, gastritis, cp non-specific abd pain, Ovarian Torsion, Pelvic Inflammatory Disease, Pyelonephritis, Ureterolithiasis, urinary tract infection. 17:58 Data reviewed: vital signs, nurses notes, lab test result(s), radiologic studies, CT cp scan. 17:58 Counseling: I had a detailed discussion with the patient and/or guardian regarding: the cp historical points, exam findings, and any diagnostic results supporting the discharge/admit diagnosis, lab results, radiology results, the need for outpatient follow up, a family practitioner, a signaler, to return to the emergency department if symptoms worsen or persist or if there are any questions or concerns that arise at home. Special discussion: Based on the patient's Hx, exam, and Dx evaluation, there is no indication for emergent surgery or inpatient Tx. It is understood by the patient/guardian that if the Sx's persist or worsen they need to return immediately for re-evaluation. 05/30 16:34 Order name: Basic Metabolic Panel 05/30 16:34 Order name: CBC with Diff 05/30 16:34 Order name: Hepatic Function 05/30 16:34 Order name: Lipase 05/30 16:40 Order name: Urine Dipstick--Ancillary (enter results) 05/30 16:40 Order name: Urine --Ancillary (enter results) 05/30 16:34 Order name: CT Abd/Pelvis - IV Contrast Only; Complete Time: 17:40 05/30 17:41 Interpretation: Report reviewed. 05/30 17:03 Order name: CBC with Automated Diff EDNE 05/30 17:06 Interpretation: Normal except: HGB 8.9; HCT 29.9; MCV 63.0; MCH 18.8; MCHC 29.9; RDW cp 17.7. 05/30 17:17 Order name: Basic Metabolic Panel; Complete Time: 17:40 EDMS 05/30 17:17 Order name: Liver (Hepatic) Function; Complete Time: 17:40 EDNE 05/30 17:40 Interpretation: Normal except: AST 14; GLOB 4.4; A/G 0.8. 05/30 17:17 Order name: Lipase; Complete Time: 17:40 EDNE 05/30 17:53 Interpretation: LIP 62; Reviewed. 05/30 17:32 Order name: Urine --Ancillary; Complete Time: 17:40 EDNE 05/30 17:32 Order name: Urine Dipstick-Ancillary; Complete Time: 17:40 EDNE 05/30 17:37 Order name: CBC Smear Scan EDNE 05/30 16:34 Order name: IV Saline Lock; Complete Time: 17:04 05/30 16:34 Order name: Labs collected and sent; Complete Time: 17:04 cp 05/30 16:34 Order name: Urine Dipstick-Ancillary (obtain specimen); Complete Time: 16:38 cp 05/30 16:34 Order name: Urine Test (obtain specimen); Complete Time: 16:38 cp 05/30 17:55 Order name: PO challenge; Complete Time: 18:19 cp Administered Medications: 16:58 Drug: Bentyl 20 mg Route: IM; Site: right ventrogluteal; tw2 17:56 Follow up: Response: No adverse reaction; Pain is decreased tw2 17:00 Drug: NS 0.9% 1000 ml Route: IV; Rate: 1 bolus; Site: left antecubital; tw2 17:57 Follow up: Response: No adverse reaction; IV Status: Order to discontinue infusion tw2 17:00 Drug: Zofran (Ondansetron) 4 mg Route: IVP; Site: left antecubital; tw2 17:57 Follow up: Response: No adverse reaction; Nausea is decreased tw2 17:00 Drug: NS 0.9% 1000 ml Route: IV; Rate: 1 bolus; Site: left antecubital; tw2 18:19 Follow up: Response: No adverse reaction; IV Intake: 600ml ; pt requested to tw2 discontinue fluids at this time states "im good, im just ready to go" 18:20 Follow up: IV Status: Order to discontinue infusion tw2 17:02 Drug: ProTONIX 40 mg Route: IVP; Site: left antecubital; tw2 17:57 Follow up: Response: No adverse reaction tw2 Disposition: 05/31 11:13 Co-signature as Attending Physician, Ganga Mclean MD I agree with the assessment and kdr plan of care. Disposition: 05/30/20 17:59 Discharged to Home. Impression: Unspecified abdominal pain, Anemia in chronic diseases classified elsewhere. - Condition is Stable. - Discharge Instructions: Abdominal Pain, Adult, Iron Deficiency Anemia, Adult. - Prescriptions for Bentyl 20 mg Oral Tablet - take 2 tablets by ORAL route every 6 hours As needed; 30 tablet. Protonix 40 mg Oral Tablet - take 1 tablet by ORAL route once daily; 30 tablet. Zofran 4 mg Oral Tablet - take 1 tablet by ORAL route every 12 hours As needed; 20 tablet. - Work release form, Medication Reconciliation Form, Thank You Letter, Antibiotic Education, Prescription Opioid Use form. - Follow up: Jourdan Gaming MD; When: 1 - 2 days; Reason: Recheck today's complaints. - Problem is an ongoing problem. - Symptoms have improved. Signatures: Dispatcher [employer] Breanne Altamirano, RN RN sv Ganga Mclean MD MD [facility] Zuhair Ohara PA PA cp Joanna Adler RN RN tw2 Corrections: (The following items were deleted from the chart) 05/30 18:00 17:59 05/30/2020 17:59 Discharged to Home. Impression: Unspecified abdominal pain. cp Condition is Stable. Forms are Medication Reconciliation Form, Thank You Letter, Antibiotic Education, Prescription Opioid Use. Follow up: Jourdan Gaming; When: 1 - 2 days; Reason: Recheck today's complaints. Problem is an ongoing problem. Symptoms have improved. cp 18:22 18:00 05/30/2020 17:59 Discharged to Home. Impression: Unspecified abdominal pain; tw2 Anemia in chronic diseases classified elsewhere. Condition is Stable. Discharge Instructions: Abdominal Pain, Adult, Iron Deficiency Anemia, Adult. Prescriptions for Bentyl 20 mg Oral Tablet - take 2 tablets by ORAL route every 6 hours As needed; 30 tablet, Protonix 40 mg Oral Tablet - take 1 tablet by ORAL route once daily; 30 tablet, Zofran 4 mg Oral Tablet - take 1 tablet by ORAL route every 12 hours As needed; 20 tablet. and Forms are Medication Reconciliation Form, Thank You Letter, Antibiotic Education, Prescription Opioid Use, Work release form. Follow up: Jourdan Gaming; When: 1 - 2 days; Reason: Recheck today's complaints. Problem is an ongoing problem. Symptoms have improved. cp
--- NOTE | 2020-05-30 18:00 | ER ---
Nurse's Notes [facility] Name: Cheyanne Lopes Age: 24 yrs Sex: Female : 1995 Arrival Date: 05/30/2020 Time: 15:23 Bed 20 Private MD: Diagnosis: Unspecified abdominal pain;Anemia in chronic diseases classified elsewhere Presentation: 05/30 15:31 Chief complaint: Patient's son or daughter states: abd pain, vomiting emesis, sv constipation for a week but reports that is normal for her, generalized weakness. Vitals WNL. Coronavirus screen: Client denies travel out of the [place] in the last 14 days. At this time, the client does not indicate any symptoms associated with coronavirus-19. Ebola Screen: No symptoms or risks identified at this time. Risk Assessment: Do you want to hurt yourself or someone else? Patient reports no desire to harm self or others. Onset of symptoms was May 30, 2020. 15:31 Method Of Arrival: EMS: [facility] sv 15:31 Acuity: GERI 3 sv 15:32 Initial Sepsis Screen: Does the patient meet any 2 criteria? No. Patient's initial sv sepsis screen is negative. Does the patient have a suspected source of infection? No. Patient's initial sepsis screen is negative. Triage Assessment: 15:31 General: Appears in no apparent distress. comfortable, Behavior is calm, cooperative, sv appropriate for age. Neuro: Level of Consciousness is awake, alert, obeys commands, Gait is steady. Respiratory: Respiratory effort is even, unlabored. GI: Reports constipation, vomiting. [employer]: 18:02 LMP N/A - tw2 Historical: - Allergies: 15:32 No Known Drug Allergies; sv - PMHx: 15:32 Depression; High Blood Pressure; Anemia; sv - PSHx: 15:32 None; sv - Immunization history:: Adult Immunizations up to date. - Social history:: Smoking status: . Screenin:30 Abuse screen: Denies threats or abuse. Nutritional screening: No deficits noted. tw2 Tuberculosis screening: No symptoms or risk factors identified. Fall Risk None identified. Assessment: 15:53 General: Appears in no apparent distress. slender, well groomed, Behavior is calm, tw2 cooperative, appropriate for age. Pain: Complains of pain in abdomen. Neuro: Level of Consciousness is awake, alert, obeys commands, Oriented to person, place, time, situation. Cardiovascular: Heart tones S1 S2 Patient's skin is warm and dry. Respiratory: Airway is patent Respiratory effort is even, unlabored, Respiratory pattern is regular, symmetrical, Breath sounds are clear bilaterally. GI: Abdomen is flat, Bowel sounds present X 4 quads. Abd is soft X 4 quads. GI: Reports nausea, vomiting. : No signs and/or symptoms were reported regarding the genitourinary system. EENT: No signs and/or symptoms were reported regarding the EENT system. Derm: No signs and/or symptoms reported regarding the dermatologic system. Musculoskeletal: Range of motion: intact in all extremities. 17:00 Reassessment: Patient appears in no apparent distress at this time. No changes from tw2 previously documented assessment. Patient and/or family updated on plan of care and expected duration. Pain level reassessed. Patient is alert, oriented x 3, equal unlabored respirations, skin warm/dry/pink. 18:03 Reassessment: Patient appears in no apparent distress at this time. No changes from tw2 previously documented assessment. Patient and/or family updated on plan of care and expected duration. Pain level reassessed. Patient is alert, oriented x 3, equal unlabored respirations, skin warm/dry/pink. PO fluids given at this time. 18:20 Reassessment: Patient appears in no apparent distress at this time. No changes from tw2 previously documented assessment. Patient and/or family updated on plan of care and expected duration. Pain level reassessed. Patient is alert, oriented x 3, equal unlabored respirations, skin warm/dry/pink. pt tolerated PO fluids at this time, states "im good, im just ready to go, i will go home and drink plenty of fluids so i can flush out that contrast from the CT like they said". Vital Signs: 15:32 BP 115 / 84; Pulse 89; Resp 16; Temp 98.8; Pulse Ox 100% ; Weight 70.76 kg; Height 5 sv ft. 6 in. (167.64 cm); 17:00 BP 117 / 82; Pulse 61; Resp 17; Pulse Ox 96% on R/A; tw2 18:03 BP 122 / 76; Pulse 56; Resp 16; Pulse Ox 100% on R/A; tw2 15:32 Body Mass Index 25.18 (70.76 kg, 167.64 cm) sv ED Course: 15:23 Patient arrived in ED. ds1 15:32 Triage completed. sv 15:32 Arm band placed on. sv 15:53 Bed in low position. Call light in reach. Adult w/ patient. Pulse ox on. NIBP on. Warm tw2 blanket given. 15:54 Zuhair Ohara PA is PHCP. cp 15:54 Ganga Mclean MD is Attending Physician. cp 16:06 Joanna Adler RN is Primary Nurse. tw2 16:50 Urine --Ancillary (enter results) Sent. ss 16:50 Urine Dipstick--Ancillary (enter results) Sent. ss 16:55 Inserted saline lock: 20 gauge in left antecubital area, using aseptic technique. Blood tw2 collected. 17:23 Basic Metabolic Panel Sent. sv 17:23 CBC with Diff Sent. sv 17:23 Hepatic Function Sent. sv 17:23 Lipase Sent. sv 17:30 CT Abd/Pelvis - IV Contrast Only In Process Unspecified. EDMS 17:58 Jourdan Gaming MD is Referral Physician. cp 18:03 Awaiting: completion of IV fluids PRIOR to discharge. tw2 18:22 No provider procedures requiring assistance completed. IV discontinued, intact, tw2 bleeding controlled, No redness/swelling at site. Pressure dressing applied. Administered Medications: 16:58 Drug: Bentyl 20 mg Route: IM; Site: right ventrogluteal; tw2 17:56 Follow up: Response: No adverse reaction; Pain is decreased tw2 17:00 Drug: NS 0.9% 1000 ml Route: IV; Rate: 1 bolus; Site: left antecubital; tw2 17:57 Follow up: Response: No adverse reaction; IV Status: Order to discontinue infusion tw2 17:00 Drug: Zofran (Ondansetron) 4 mg Route: IVP; Site: left antecubital; tw2 17:57 Follow up: Response: No adverse reaction; Nausea is decreased tw2 17:00 Drug: NS 0.9% 1000 ml Route: IV; Rate: 1 bolus; Site: left antecubital; tw2 18:19 Follow up: Response: No adverse reaction; IV Intake: 600ml ; pt requested to tw2 discontinue fluids at this time states "im good, im just ready to go" 18:20 Follow up: IV Status: Order to discontinue infusion tw2 17:02 Drug: ProTONIX 40 mg Route: IVP; Site: left antecubital; tw2 17:57 Follow up: Response: No adverse reaction tw2 Intake: 18:19 IV: 600ml; Total: 600ml. tw2 Outcome: 17:59 Discharge ordered by MD. cano 18:22 Discharged to home ambulatory. tw2 18:22 Condition: stable 18:22 Discharge instructions given to patient, Instructed on discharge instructions, follow up and referral plans. medication usage, Demonstrated understanding of instructions, follow-up care, medications, Prescriptions given X 3. 18:22 Patient left the ED. tw2 Signatures: Dispatcher [employer] EDBreanne Gonzalez, RN RN Kimmie Roberts ds1 Shraddha Quintanilla RN RN ss Zuhair Ohara, MARCELA PA Joanna Crawford RN RN tw2 Corrections: (The following items were deleted from the chart) 15:34 15:32 Pulse 89bpm; Resp 16bpm; Pulse Ox 100%; Temp 98.8F; 70.76 kg; Height 5 ft. 6 in.; sv BMI: 25.1; sv
[2020-05-30 18:52] LABS: Anisocytosis 1+; Blood Morphology Comment NOTED (NOT SEEN); Platelet Estimate ADEQ; Poikilocytosis 2+; White Blood Cell Scan OK (OK)
[2020-05-30 21:22] VITALS: TEMP 98.8
[2020-05-30 21:24] VITALS: BP 122/76; O2SAT 100
== END 2020-05-30 18:22 | disposition home or self-care (01) ==
LOC: ER 15:19
DX: R10.9 Unspecified abdominal pain (principal); D63.8 Anemia in other chronic diseases classified elsewhere
CPT/HCPCS: 36415; 74177; 80048; 80076; 81003; 81025; 82565; 83690; 85025; 96361; 96372; 96374; 96375; 99284; C9113; J0500; J2405; J7030; Q9967

== ENCOUNTER 2020-11-29 09:34 | Emergency (ER) | payer OTHER, SELFPAY ==
--- OUTSIDE RECORDS SUMMARY | 2020-11-29 09:38 | XMS REPORT | Continuity of Care Document ---
:1995 Author Organization [facility] t Address [address] [place] [address] Care Team Providers Name Role Phone System, Not In Primary Care Physician Unavailable Hiwot RAVI Attending Clinician HIWOT Attending Clinician Unavailable Shanta Martinez MD Attending Clinician Shanat MARTINEZ Attending Clinician Unavailable Bushra RAVI Attending Clinician Talha RAVI, Ernie Thompson Attending Clinician [phone] Agusto Ruffin MD Attending Clinician Hazel RAVI, Daisy Attending Clinician Marilu Fiore MD Attending Clinician Gail Marcum MD Attending Clinician Demarcus Smalls MD Attending Clinician Shannan RAVI Attending Clinician Sheikh BREONNA Attending Clinician Delano Guzman MD Attending Clinician Adiel HARDY Attending Clinician Otto RAVI Attending Clinician Chelsey Smalls Attending Clinician Unavailable Joel Barton MD Attending Clinician Anabela RAVI Attending Clinician Beth CLAYTON, G Attending Clinician Doctor Unassigned, Name Attending Clinician Unavailable Eli Rodríguez Attending Clinician Shanta MARTINEZ Admitting Clinician Unavailable Admitting Clinician Unavailable Payers Payer Name Policy Type Policy Effective Date Expiration Date Sour Number AMBETTERAMBETTER [id number] 2020 [id number]/ 00:00:00 - M edical 08/2020-Present Center COMMERCIAL MISCMISC [id number] 2020 [place] [id number] 00:00:00 Met daphnie -PresentComm ercial MISC EXCHANGEAMBETTER [id number] 2020 Rasta walton FROM [place]OW[place]Y 00:00:00 Jewish [id number] 2020-PresentExcha nge Problems Condition Condition Condition Status Onset Resolution Last Treating Co mments Source Name Details Category Date Date Treatment Clinician Date Excessive Excessive Disease Active [facility] - frequent frequent 00:00: Medica l menstruati menstruati 00 Ce nter [place] on Cholecysti Cholecysti Disease Active 2019-08 [place] tis tis 2-12 Methodi 00:00: st 00 Acute Acute Disease Active 2019-08 [facility] cholecysti cholecysti 2-10 Me thodi tis tis 00:00: st 00 Symptomati Symptomati Disease [facility] Methodi cholelithi cholelithi 00:00: st asis asis 00 Allergies, Adverse Reactions, Alerts This patient has no known allergies or adverse reactions. Social History Social Habit Start Date Stop Date Quantity Comments Source Sex Assigned At [facility] Exposure to Yes [facility] - SARS-CoV-2 (event) Medica l [place] Tobacco use and 2020-10-22 2020-10-22 Never used [facility] ethodist exposure 00:00:00 00:00:00 Alcohol intake 2020-10-22 2020-10-22 Current drinker [place] 00:00:00 00:00:00 of alcohol (finding) History SDOH 2020-07-22 2020-07-22 3 [facility] Meth odist Alcohol Frequency 00:00:00 00:00:00 History [facility] 2020-07-22 2020-07-22 1 [facility]ist Alcohol Std Drinks 00:00:00 00:00:00 History [facility] 2020-07-22 2020-07-22 1 [place] Meth odist Alcohol Binge 00:00:00 00:00:00 Smoking Status Start Date Stop Date Source Never smoker [facility] t Medications Ordered Filled Start Stop Current Ordering Indication Dosage Frequency Signature Comments Components Source Medication Medication Date Date Medication? Clinician (SIG) Name Name docusate 2020- Yes 100mg Q.5D Take 1 [facility] sodium 11-21 capsule [facility] - (COLACE) 00:00: 23:59 (100 mg Medic al 100 MG 00 :00 total) by Center capsule mouth 2 (two) times daily for 10 days. magnesium 2020- No 296mL Take [address] citrate 11-21-12 mLs by [facility] - solution 00:00: 23:59 mouth once Me dical 00 :00 for 1 Center dose. multivitami Yes 1{capsu QD Take [address] n capsule 11-09 le} capsule by Luke s - 12:03: mouth Medical 14 daily. Center ascorbic Yes QD Take by [facility] acid/multiv - mouth [facility] - it-min 12:03: daily . Medical (EMERGEN-C 14 Center IMMUNE PLUS ORAL) ketorolac 2020- No 10mg Take [address] (TORADOL) 11-09 by mouth [facility] - 10 mg 07:20: 00:00 every 6 Medical tablet 10 :00 (six) Center hours as needed . HYDROcodone 2020- No 1{tbl} Take [address] -acetaminop 11-09-10 tablet by Hiwot schofield (NORCO 00:00: 23:59 mouth Medic al 5-325) 00 :00 every 4 Center 5-325 mg (four) per tablet hours as needed for Pain for up to 10 days. Max Daily Amount: 6 tablets ibuprofen 2020- No 600mg Take [address] (ADVIL,MOTR 11-09 04-10 tablet [facility] - IN) 600 MG 00:00: 23:59 (600 mg Med ical tablet 00 :00 total) by Center mouth every 6 (six) hours as needed for Pain for up to 10 days. amoxicillin No 1{tbl} Q.5D Take [address] -clavulanat 3-31 04-10 tablet by Hiwot christiansen - e 00:00: 23:59 mouth 2 Medical (AUGMENTIN) 00 :00 (two) Center 875-125 mg times per tablet daily for 10 days. doxycycline No 100mg Q.5D Take [address] (VIBRAMYCIN 3-17 03-17 mg by Lukuldip - ) 100 MG 11:18: 00:00 mouth 2 Medic al capsule 54 :00 (two) Center times daily. doxycycline 2019-08 100mg Q.5D Take 1 [place] (VIBRAMYCIN 2-30 01-06 capsule Meth violet ) 100 MG 00:00: 23:59 ([address] capsule 00 :00 total) by mouth 2 (two) times a day for 7 days. ondansetron 2019-08 4mg Q8H Take 1 Madeleine ston ODT (Zofran 2-30 01-04 tablet (4 [place] ODT) 4 MG 00:00: 23:59 mg total) st disintegrat 00 :00 by mouth ing tablet every 8 (eight) hours as needed for nausea for up to 5 days. acetaminoph 2019-08 acute pain 1{tbl} Q6H Take 1-2 Reid en-codeine 2-30 01-03 tablets by Me gutierres (TYLENOL 00:00: 23:[address] WITH 00 :00 every 6 CODEINE #3) (six) 300-30 mg hours as per tablet needed for moderate pain for up to 4 days .acute pain. keTOROlac 2019-08 Yes 10mg Q6H Take 10 mg [place] (TORadol) 2-12 by mouth Method i 10 mg 13:57: every 6 st tablet 23 (six) hours as needed for moderate pain. acetaminoph 2019-08 acute pain 1{tbl} Q4H Take 1 [facility] en-codeine 2-12 12-12 tablet by Met adame (TYLENOL 12:05: 00:[address] WITH 49 :00 every 4 CODEINE #3) (four) 300-30 mg hours as per tablet needed for moderate pain .acute pain. ondansetron 2019-08- No 8mg Q8H Take 8 mg [facility] ODT -12 by mouth Methodi (ZOFRAN-ODT 11:39: 00:[address] ) 8 MG 21 :00 (eight) disintegrat hours as ing tablet needed for nausea or vomiting. ondansetron 2019-08 Yes 8mg Q6H Take 2 [place] ODT 2-12 tablets (8 Methodi (ZOFRAN-ODT 00:00: mg total) s t ) 4 MG 00 by mouth disintegrat every 6 ing tablet (six) hours as needed for nausea or vomiting. acetaminoph 2019-08- No 650mg Q6H Take 2 [place] en -08-22 tablets Methodi (TYLENOL) 00:00: 23:59 ([address] 325 MG 00 :00 total) by tablet mouth every 6 (six) hours as needed for mild pain or fever for up to 30 days. polyethylen 2019-08 No 17g Q24H Take 17 g Reid e glycol 09-23 by mouth Method i (MIRALAX) 00:00: 23:[address] 17 gram 00 :00 needed for packet constipati on for up to 30 days. HYDROcodone 2019-08- No acute pain 1{tbl} Q8H Take 1 Reid -acetaminop -08-02 tablet by Me nenita schofield (Linch) 00:00: 23:[address] 5-325 mg 00 :00 every 8 per tablet (eight) hours as needed for severe pain for up to 10 days .acute pain. Max Daily Amount: 3 tablets acetaminoph 2019-08- No acute pain 1{tbl} Q6H Take 1 [facility] en-codeine 2-12 - tablet by Met adame (TYLENOL 00:00: 00:[address] WITH 00 :00 every 6 CODEINE #3) (six) 300-30 mg hours as per tablet needed for severe pain for up to 10 days .acute pain. acetaminoph 2019-08- No acute pain 1{tbl} Q6H Take 1-2 Reid en-codeine 1-24 11-29 tablets by [place] (TYLENOL 00:00: 23:[address] WITH 00 :00 every 6 CODEINE #3) (six) 300-30 mg hours as per tablet needed for moderate pain for up to 5 days .acute pain. ondansetron 2019-08 No 4mg Q8H Take 1 Madeleine ston ODT (Zofran 09-04 tablet (4 Me thodi ODT) 4 MG 00:00: 23:59 mg total) st disintegrat 00 :00 by mouth ing tablet every 8 (eight) hours as needed for nausea for up to 5 days. Vital Signs Vital Name Observation Time Observation Value Comments Source Systolic blood 2020-11-21 20:41:00 131 mm[Hg] [facility] Diastolic blood 2020-11-21 20:41:00 70 mm[Hg] [facility] Heart rate 2020-11-21 20:41:00 85 /min [facility] Body temperature 2020-11-21 20:41:00 36.83 Sheree [facility] Respiratory rate 2020-11-21 20:41:00 19 /min [facility] Oxygen saturation in 2020-11-21 18:09:00 100 /min [facility] Arterial blood by Medical Ce nter Pulse oximetry Body height 2020-11-08 13:25:00 167.6 cm [facility] Body weight 2020-11-08 13:25:00 65.318 kg [facility] BMI 2020-11-08 13:25:00 23.24 kg/m2 [facility] Systolic blood 2020-10-22 20:01:58 111 mm[Hg] [facility] n [facility] pressure Diastolic blood 2020-10-22 20:01:58 62 mm[Hg] [place] [facility] pressure Heart rate 2020-10-22 20:01:58 80 /min [facility] Body temperature 2020-10-22 20:01:58 37.83 Sheree [facility] Respiratory rate 2020-10-22 20:01:58 16 /min [facility] Oxygen saturation in 2020-10-22 20:01:58 97 /min Franklin Gutierrez Arterial blood by Pulse oximetry Body height 2020-10-22 17:02:00 167.6 cm Franklin Gutierrez Body weight 2020-10-22 17:02:00 71.668 kg Franklin Gutierrez BMI 2020-10-22 17:02:00 25.50 kg/m2 Franklin Gutierrez Procedures Procedure Date / Time Performing Clinician Source Performed CT ABDOMEN/PELVIS WITH IV 2020-11-21 18:53:[address] [facility] CONTRAST [facility] COMPREHENSIVE METABOLIC 2020-11-21 18:06:[address] [facility] PANEL [facility] LIPASE 2020-11-21 18:06:00 Neel Werner Carissa [facility] CBC W/PLT COUNT & AUTO 2020-11-21 18:06:[address] [facility] DIFFERENTIAL [facility] URINALYSIS W/ MICROSCOPIC 2020-11-21 17:50:00 Mitzi De Leon [facility] XR CHEST 1 VIEW 2020-11-21 16:34:00 Carissa De Leon [facility] - PORTABLE/BEDSIDE [facility] SARS-COV2/INFLUENZA/RSV 2020-11-08 19:38:00 Beatriz Martinez [facility] RT-PCR [facility] TISSUE EXAM 2020-11-08 16:08:00 Beatriz Martinez [facility] ROBOTIC LAPAROSCOPY,TOTAL 2020-11-08 14:15:[address] [facility] HYSTERECTOMY/ BILATERAL [facility] SALPINGECTOMY SINGLE INCISION (SILS) SCREEN, URINE 2020-11-08 13:08:00 Tu, Franca [place] [facility] BASIC METABOLIC PANEL (7) 2020-11-03 14:24:00 Tu, Franca [place] [facility] CBC W/PLT COUNT & AUTO 2020-11-03 14:24:00 Tu, Franca [place] [facility] TYPE AND SCREEN, 2020-11-03 14:24:00 Tu, Franca [place] [facility] CT ABDOMEN PELVIS W 2020-10-22 18:50:04 RayTrevor on [facility] CONTRAST XR CHEST 1 VW PORTABLE 2020-10-22 18:08:54 Ray Trevor Bucknerne Rasta anton Gutierrez URINALYSIS SCREEN AND 2020-10-22 17:25:00 Juan Ramon Trevor Irizarry Madeleine Gutierrez MICROSCOPY, WITH REFLEX TO CULTURE RESPIRATORY PATHOGEN 2020-10-22 17:22:00 Ray Trevor Bucknerterence noyola [facility] PANEL WITH COVID-19 HC COMPLETE BLD COUNT 2020-10-22 17:20:00 RayTrevor W/AUTO DIFF COMPREHENSIVE METABOLIC 2020-10-22 17:20:00 Ray Trevorjazmín figueroa [facility] PANEL LACTIC ACID LEVEL, SEPSIS 2020-10-22 17:20:00 Ray Trevor Bucknerterence Gutierrez - NOW AND REPEAT 2X EVERY 3 HOURS HCG QUALITATIVE, SERUM 2020-10-22 17:20:00 Juan Ramon Trevor Bucknerterence Gutierrez SCREEN LIPASE LEVEL 2020-10-22 17:20:00 Juan Ramon Trevor Bucknerne Franklin Barbosa ethodist ESTIMATED GFR 2020-10-22 17:20:00 Juan RamonTrevor ethodist URINE CULTURE 2020-10-22 17:09:00 Juan RamonTrevor ethodist TISSUE EXAM 2020-08-23 08:08:00 Beatriz Martinez [facility] HYSTEROSCOPY,ENDOMETRIAL 2020-08-23 07:39:[address] [facility] BIOPSY/ POLYPECTOMY Medical [facility] er TYPE AND SCREEN, 2020-08-23 06:10:00 Beatriz Martinez [facility] SCREEN, URINE 2020-08-23 05:50:00 Beatriz Martinez [facility] REPORT OF PROCEDURE - 2020-08-23 00:00:00 Provider, Default [facility] ENDOSCOPY SCAN [facility] ECG 12-LEAD 2020-08-19 10:49:57 Unknown, Hl7 Doctor [facility] SARS-COV2/RT-PCR ([facility] & 2020-08-19 10:31:00 Beatriz Martinez [facility] - REF LABS) [facility] BASIC METABOLIC PANEL (7) 2020-08-19 10:31:00 Andrew Cartagena I [facility] CBC W/PLT COUNT & AUTO 2020-08-19 10:31:00 Beatriz Martinez [facility] TYPE AND SCREEN, 2020-08-19 10:31:00 Beatriz Martinez [facility] CT ABDOMEN PELVIS W 2020-08-10 18:20:34 Antwan Lino on [facility] CONTRAST HC COMPLETE BLD COUNT 2020-08-10 17:10:00 Antwan Lino W/AUTO DIFF COMPREHENSIVE METABOLIC 2020-08-10 17:10:00 Antwan Lino [facility] PANEL LACTIC ACID LEVEL, SEPSIS 2020-08-10 17:10:00 Antwan Lino - NOW AND REPEAT 2X EVERY 3 HOURS ESTIMATED GFR 2020-08-10 17:10:00 Antwan Lino ethodi BLOOD CULTURE, AEROBIC & 2020-08-10 17:09:00 Antwan Lino ANAEROBIC BLOOD CULTURE, AEROBIC & 2020-08-10 17:05:00 Antwan Lino ANAEROBIC URINALYSIS SCREEN AND 2020-08-10 16:17:00 Antwan Lino MICROSCOPY, WITH REFLEX TO CULTURE HCG QUALITATIVE, URINE 2020-08-10 16:17:00 Antwan Lino SCREEN URINE CULTURE 2020-08-10 16:17:00 Antwan Lino HC COMPLETE BLD COUNT 2020-07-23 05:39:00 Abilio Menjivar W/AUTO DIFF COMPREHENSIVE METABOLIC 2020-07-23 05:39:00 Abilio Menjivar PANEL ESTIMATED GFR 2020-07-23 05:39:00 Abilio Menjivar [place] AN ELECTIVE 2020-07-22 18:23:05 Nirali Alonso ENDOTRACHEAL AIRWAY CHOLECYSTECTOMY, 2020-07-22 18:02:00 Abilio Menjivar LAPAROSCOPIC ABO AND RH CONFIRMATION 2020-07-22 16:39:00 Carter Bunch Jewish TYPE AND SCREEN 2020-07-22 13:36:00 Carter Bunch SURGICAL PATHOLOGY 2020-07-22 08:03:00 Carter Bunch ethodist REQUEST LACTIC ACID LEVEL, SEPSIS 2020-07-22 04:05:00 Georgi Campbell - NOW AND REPEAT 2X EVERY 3 HOURS TROPONIN 2020-07-22 04:05:00 Georgi Campbell HC COMPLETE BLD COUNT 2020-07-22 04:05:00 Abilio Menjivar W/AUTO DIFF PROTHROMBIN TIME WITH INR 2020-07-22 04:05:00 Georgi Campbell COMPREHENSIVE METABOLIC 2020-07-22 04:05:00 Abilio Menjivar PANEL MAGNESIUM LEVEL 2020-07-22 04:05:00 Georgi Campbell PHOSPHORUS LEVEL 2020-07-22 04:05:00 Shannan Georgi Franklin Coe hodist ESTIMATED GFR 2020-07-22 04:05:00 Georgi Campbell LACTIC ACID LEVEL, SEPSIS 2020-07-21 20:00:00 Georgi Campbell - NOW AND REPEAT 2X EVERY 3 HOURS TROPONIN 2020-07-21 20:00:00 Georgi Campbell COVID-19 QUALITATIVE PCR 2020-07-21 20:00:[address] ABDOMEN PELVIS W 2020-07-21 17:10:38 Amanda Sweeney n Jewish CONTRAST US GALLBLADDER 2020-07-21 17:03:48 Amanda Sweeney thodist HC COMPLETE BLD COUNT 2020-07-21 15:58:00 Amanda Sweeney W/AUTO DIFF PROTHROMBIN TIME WITH INR 2020-07-21 15:58:00 Amanda Sweeney PARTIAL THROMBOPLASTIN 2020-07-21 15:58:00 Troiani, Amanda Madeleine ston Jewish TIME (PTT) URINALYSIS SCREEN AND 2020-07-21 15:58:00 Amanda Sweeney Jewish MICROSCOPY, WITH REFLEX TO CULTURE HCG QUALITATIVE, URINE 2020-07-21 15:58:00 Amanda Sweeney Jewish SCREEN COMPREHENSIVE METABOLIC 2020-07-21 15:58:00 Amanda Sweeney Jewish PANEL LACTIC ACID LEVEL, SEPSIS 2020-07-21 15:58:00 Georgi Campbell Jewish - NOW AND REPEAT 2X EVERY 3 HOURS LIPASE LEVEL 2020-07-21 15:58:00 Amanda Sweeney Me thodist TROPONIN 2020-07-21 15:58:00 Georgi Campbell Meth odist ESTIMATED GFR 2020-07-21 15:58:00 Amanda Sweeney Me thodist URINE CULTURE 2020-07-21 15:58:00 Amanda Sweeney Me thodist CT ABDOMEN PELVIS W 2020-07-05 19:05:34 Antwan Lino on Jewish CONTRAST URINALYSIS SCREEN AND 2020-07-05 17:49:00 Antwan Lino Jewish MICROSCOPY, WITH REFLEX TO CULTURE HCG QUALITATIVE, URINE 2020-07-05 17:49:00 Antwan Lino Jewish SCREEN ESTIMATED GFR 2020-07-05 17:47:00 Antwan Lino ethodist URINE CULTURE 2020-07-05 17:47:00 Antwan Lino ethodist HC COMPLETE BLD COUNT 2020-07-05 17:47:00 Antwan Lino Jewish W/AUTO DIFF COMPREHENSIVE METABOLIC 2020-07-05 17:47:00 Antwan Lino Jewish PANEL LIPASE LEVEL 2020-07-05 17:47:00 Antwan Lino ethodist US GALLBLADDER 2020-07-05 17:38:49 Antwan Lino ethodist Plan of Care Planned Activity Planned Date Details Comments Source Future Scheduled 2021-04-[address] [facility] - Test 00:00:00 (Season Ended) [code Medical Center = INFLUENZA VACCINE (Season Ended)] Future Scheduled 2021-03-12 INFLUENZA VACCINE [place] [facility] Test 00:00:00 [code = INFLUENZA VACCINE] Future Scheduled 2020-08-[address] [facility] - Test 00:00:00 (12+) [code = Medical Center DEPRESSION SCREENING (12+)] Future Scheduled 2014 Screening for [facility] St Dahlia es - Test 00:00:00 malignant neoplasm Medical C enter of cervix (procedure) [code = 857893863] Future Scheduled 2014 Screening for [facility] thodist Test 00:00:00 malignant neoplasm of cervix (procedure) [code = 040171035] Future Scheduled 2012 DTAP/TDAP/TD [facility] Test 00:[facility]:00 VACCINES (1 - Tdap) [facility] Center [code = DTAP/TDAP/TD VACCINES (1 - Tdap)] Future Scheduled [address] [facility] - Test 00:00:00 SCREENING [code = Medical nt HEPATITIS C SCREENING] Future Scheduled 2011 Hepatitis C [facility] hodist Test 00:00:00 screening (procedure) [code = 828130982] Future Scheduled 2009 COVID-19 VACCINE (1) Madeleine olgan [facility] Test 00:00:00 [code = COVID-19 VACCINE (1)] Encounters Start End Encounter Admission Attending Care Care Encounter Source Date/Time Date/Time Type Type Clinicians Facility Department ID 2020-10-22 2020-10-22 Emergency RUFF[place], [place] [address] [id number] [facility] 00:00:00 00:00:00 RADHA 545 Metho di 2020-08-16 2020-08-16 Outpatient FIORE, [facility] [id number] [facility] 00:00:00 00:00:00 SYEDA [address] 2020-08-10 2020-08-10 Emergency MARCUM, [place] [address] [id number] [facility] 00:00:00 00:00:00 ERLINDA [address] 2020-07-21 2020-07-23 Inpatient BUNCH, [place] [address] [id number] [facility] 00:00:00 00:00:00 SIDRAH [address] 2020-07-12 2020-07-12 Outpatient GWEN [facility] [id number] [facility] 00:00:00 00:00:00 SYEDA Chatman Meth violet 2020-07-05 2020-07-05 Emergency TANYA [facility] [id number] [facility] 00:00:00 00:00:00 916 Method i 2020-05-22 2020-05-22 Emergency [facility] [id number] 10:05:00 12:50:00 Ana Addison [id number] [place] [id number] [place] [id number] 2020-05-22 2020-05-22 Orders Doctor ZORA [id number] 00:00:00 00:00:00 Only Unassigned, KIRA [id number] [place] [id number] 2019-03-12 2019-03-12 [facility]phone [facility] [id number] 00:00:00 00:00:00 Lauren Benitez GRADER PATROL [id number] [facility] [id number] MATERNAL [id number] & CHILD [address] [place] [address] Results Test Description Test Time Test Comments Results Result [facility] e Comments CT, ABDOMEN 2020-11-21 Unlisted 20:33:00 Reason for Exam - Click Yes and Enter [facility] CENTERName: Below->RUFINO Hammer this procedure MARISELAA SAMEER require oral : 1995 contrast?->No Sex: F FINAL REPORT ABDOMINAL AND PELVIS CT DATED 11/21/2020 CLINICAL INFORMATION: Abdominal pain, feverAbdominal infection suspectedNausea/vom iting TECHNIQUE: Axial images of the abdomen and pelvis were obtained from diaphragm to the pubic symphysis with intravenous contrast. This exam was performed according to our departmental dose-optimization program, which includes automated exposure control, adjustment of the mA and/or kV according to patient size and/or use of interactive reconstruction technique. COMMENT: Liver and spleen are normal in size. A 1.2 x 1.7 cm hypodense focus is seen in the segment 4 of the liver adjacent to the falciform ligament consistent with focal fatty hepatic infiltrate. Gallbladder is surgically absent. No biliary dilatation is noted. Pancreas and adrenals are unremarkable. Both kidneys are normal in size and functioning. No hydronephrosis, hydroureter, urolithiasis is seen. The small and large bowel are unremarkable. Appendix is normal in caliber. Large amount fecal material is seen in the large bowel and rectum suggestive of constipation. Uterus is surgically absent. A 3.1 x 3.6 cm cyst is seen in the left adnexa suggestive of ovarian cyst. The urinary bladder is contracted. No mass, adenopathy or ascites is present. IMPRESSION: 1. Findings suggestive of constipation.2. Left ovarian cyst, almost certainly benign, no imaging follow-up recommended. Signed: [facility] Verified Date/Time: 11/21/2020 20:33:54 Reading Location: [address] Consult Reading Room abdomen/pelvis 2020-11-21 Interface, External [facility] with IV contrast 20:33:00 Ris In - 11/21/2020 - Medical 8:[address] [facility] REPORT ABDOMINAL AND PELVIS CT DATED 11/21/2020 CLINICAL INFORMATION: Abdominal pain, feverAbdominal infection suspectedNausea/vom iting TECHNIQUE: Axial images of the abdomen and pelvis were obtained from diaphragm to the pubic symphysis with intravenous contrast. This exam was performed according to our departmental dose-optimization program, which includes automated exposure control, adjustment of the mA and/or kV according to patient size and/or use of interactive reconstruction technique. COMMENT: Liver and spleen are normal in size. A 1.2 x 1.7 cm hypodense focus is seen in the segment 4 of the liver adjacent to the falciform ligament consistent with focal fatty hepatic infiltrate. Gallbladder is surgically absent. No biliary dilatation is noted. Pancreas and adrenals are unremarkable. Both kidneys are normal in size and functioning. No hydronephrosis, hydroureter, urolithiasis is seen. The small and large bowel are unremarkable. Appendix is normal in caliber. Large amount fecal material is seen in the large bowel and rectum suggestive of constipation. Uterus is surgically absent. A 3.1 x 3.6 cm cyst is seen in the left adnexa suggestive of ovarian cyst. The urinary bladder is contracted. No mass, adenopathy or ascites is present. IMPRESSION: 1. Findings suggestive of constipation.2. Left ovarian cyst, almost certainly benign, no imaging follow-up recommended. Signed: Nita Matta MDReport Verified Date/Time: 11/21/2020 20:33:54 Reading Location: [address] Consult Reading Room Comprehensive metabolic panel 2020-11-21 18:33:00 Test Item Value Reference Range Interpretation Comme nts Protein, Total (test 6.9 See_Comment [Autom ated message] code = 2885-2) The system Gust generated this result transmitted ref erence range: 6.0 - 8. 5 gm/dL. The reference r ryann was not used to int erpret this result as normal/abnormal . Albumin (test code = 3.6 g/dL 3.5-5 79193-9) Alkaline Phosphatase 66 U/L 30-115 (test code = 6768-6) Total Bilirubin (test 0.2 mg/dL 0.1-1.2 code = 1975-2) Sodium (test code = 142 meq/L 772-070 4780-2) Potassium (test code = 3.9 meq/L 3.6-5.5 2823-3) Chloride (test code = 106 meq/L 98-106 2075-0) CO2 (test code = 27 meq/L 20-29 2027-) BUN (test code = 9 mg/dL 10-26 L 3094-0) Creatinine (test code 0.68 mg/dL 0.5-1.2 = 2160-0) Glucose (test code = 103 mg/dL 70-110 2345-7) Calcium (test code = 8.4 mg/dL 8.5-10.5 L 91127-5) AST (test code = 13 U/L 5-40 1920-8) ALT (test code = 10 U/L 5-50 1742-6) EGFR (test code = 126 mL/min/1.73 sq [place] [address]-2) ACCURATE CRE ATININE CLEARANCE IN [place] EDICTING GLOMERULAR FILT RATION RATE. ESTIMATED GFR IS NOT APPLICABLE FOR DIALYSIS PATIEN TS. VERITO (test code = VERITO) Outside Physical Damage Appraiser ID - JUSTINOperator ID - JUSTINOperator ID - JUSTINOperator ID - JUSTINOperator ID - JUSTINOperator ID - JUSTINOperator ID - JUSTINOperator ID - JUSTINOperator ID - JUSTINOperator ID - JUSTINOperator ID - JUSTINOperator ID - JUSTINOperator ID - JUSTINOperator ID - JUSTINOperator ID - JUSTINOperator ID - KENDRICK Lab Interpretation Abnormal (test code = 25125-0) [facility]00 Test Item Value Reference Range Interpretation Comments Lipase (test code = 8 U/L 6-51 3040-3) VERITO (test code = VERITO) Outside Physical Damage Appraiser ID - JUSTINOperator ID - JUSTINOperator ID - JUSTINOperator ID - KENDRICK Lab Interpretation Normal (test code = 23616-9) [facility] [id number] 18:33:00 Test Item Value Reference Range Interpretation Comments TOTAL PROTEIN 6.9 gm/dL 6.0-8.5 (BEAKER) (test code = 770) ALBUMIN (BEAKER) 3.6 g/dL 3.5-5.0 (test code = 1145) ALKALINE PHOSPHATASE 66 U/L 30-115 (BEAKER) (test code = 346) BILIRUBIN TOTAL 0.2 mg/dL 0.1-1.2 (BEAKER) (test code = 377) SODIUM (BEAKER) (test 142 meq/L 135-148 code = 381) POTASSIUM (BEAKER) 3.9 meq/L 3.6-5.5 (test code = 379) CHLORIDE (BEAKER) 106 meq/L 98-106 (test code = 382) CO2 (BEAKER) (test 27 meq/L 20-29 code = 355) BLOOD UREA NITROGEN 9 mg/dL 10-26 L (BEAKER) (test code = 354) CREATININE (BEAKER) 0.68 mg/dL 0.50-1.20 (test code = 358) GLUCOSE RANDOM 103 mg/dL 70-110 (BEAKER) (test code = 652) CALCIUM (BEAKER) 8.4 mg/dL 8.5-10.5 L (test code = 697) AST (SGOT) (BEAKER) 13 U/L 5-40 (test code = 353) ALT (SGPT) (BEAKER) 10 U/L 5-50 (test code = 347) EGFR (BEAKER) (test 126 ESTIMATE D GFR IS code = 1092) mL/min/1.73 sq NOT ACCURA TE m CREATININE CLEARANCE IN PREDICTING GLOMERULAR FILTRATION RATE . ESTIMATED GFR I S NOT APPLICABLE FOR DIALYSIS PATIEN TS. Outside Physical Damage Appraiser ID - JUSTINOperator ID - JUSTINOperator ID - JUSTINOperator ID - JUSTINOperator ID - JUSTINOperator ID - JUSTINOperator ID - JUSTINOperator ID - JUSTINOperator ID - JUSTINOperator ID - JUSTINOperator ID - JUSTINOperator ID - JUSTINOperator ID - JUSTINOperator ID - JUSTINOperator ID - JUSTINOperator ID - [id number] 18:33:00 Test Item Value Reference Range Interpretation Comments LIPASE (BEAKER) (test code = 749) 8 U/L 6-51 Outside Physical Damage Appraiser ID - JUSTINOperator ID - JUSTINOperator ID - JUSTINOperator ID - KENDRICK CBC with platelet count + automated [id number] 18:16:00 Test Item Value Reference Range Interpretation Comments WBC (test code = 6690-2) 6.1 See_Comment [A utomated message] The system [employer] generated this result transmitted ref erence range: 4.0 - 10 .0 K/L. The refe rence range was not u sed to interpret this result as normal/abnor mal. RBC (test code = 789-8) 4.17 See_Comment [Au tomated message] The system [employer] generated this result transmitted ref erence range: 4.00 - 5 .00 M/L. The refe rence range was not u sed to interpret this result as normal/abnor mal. MCHC (test code = 786-4) 27.2 See_Comment L [A utomated message] The system [employer] generated this result transmitted ref erence range: 32.0 - 3 6.0 GM/DL. The refe rence range was not u sed to interpret this result as normal/abnor mal. Hematocrit (test code = 27.6 % 36-46 L 4544-3) MCV (test code = 787-2) 66.2 fL 82-99 L MCH (test code = 785-6) 18.0 pg 27-33 L RDW (test code = 788-0) 17.5 % 12-15 H Platelets (test code = 409 See_Comment [Aut omated message] 777-3) The system [employer] generated this result transmitted ref erence range: 150 - 43 0 K/CU MM. The referen ce range was not u sed to interpret this result as normal/abnor mal. MPV (test code = 9.0 fL 6-11.5 81695-7) nRBC (test code = 413) 0 See_Comment [Aut omated message] The system [employer] generated this result transmitted ref erence range: 0 - 0 /1 00 WBC. The refere nce range was not u sed to interpret this result as normal/abnor mal. % Neutros (test code = 61 % 429) % Lymphs (test code = 27 % 430) % Monos (test code = 9 % 431) % Eos (test code = 432) 3 % % Baso (test code = 437) 1 % # Neutros (test code = 3.70 See_Comment [Aut omated message] 670) The system [employer] generated this result transmitted ref erence range: 1.80 - 8 .00 K/L. The refe rence range was not u sed to interpret this result as normal/abnor mal. # Lymphs (test code = 1.61 See_Comment [Auto mated message] 414) The system [employer] generated this result transmitted ref erence range: 1.48 - 4 .50 K/L. The refe rence range was not u sed to interpret this result as normal/abnor mal. # Monos (test code = 0.52 See_Comment [Autom ated message] 415) The system [employer] generated this result transmitted ref erence range: 0.00 - 1 .30 K/L. The refe rence range was not u sed to interpret this result as normal/abnor mal. # Eos (test code = 416) 0.16 See_Comment [Au tomated message] The system [employer] generated this result transmitted ref erence range: 0.00 - 0 .50 K/L. The refe rence range was not u sed to interpret this result as normal/abnor mal. # Baso (test code = 417) 0.06 See_Comment [A utomated message] The system [employer] generated this result transmitted ref erence range: 0.00 - 0 .20 K/L. The refe rence range was not u sed to interpret this result as normal/abnor mal. Immature 0 % 0-0 Granulocytes-Relative (test code = 2801) Lab Interpretation (test Abnormal code = 65848-2) [facility] W/PLT COUNT & AUTO [id number] 18:16:00 Test Item Value Reference Range Interpretation Comments WHITE BLOOD CELL COUNT (BEAKER) 6.1 K/ L 4.0-10.0 (test code = 775) RED BLOOD CELL COUNT (BEAKER) 4.17 M/ L 4.00-5.00 (test code = 761) HEMOGLOBIN (BEAKER) (test code = 7.5 GM/DL 12.0-15.5 L 410) HEMATOCRIT (BEAKER) (test code = 27.6 % 36.0-46.0 L 411) MEAN CORPUSCULAR VOLUME (BEAKER) 66.2 fL 82.0-99.0 L (test code = 753) MEAN CORPUSCULAR HEMOGLOBIN 18.0 pg 27.0-33.0 L (BEAKER) (test code = 751) MEAN CORPUSCULAR HEMOGLOBIN CONC 27.2 GM/DL 32.0-36.0 L (BEAKER) (test code = 752) RED CELL DISTRIBUTION WIDTH 17.5 % 12.0-15.0 H (BEAKER) (test code = 412) PLATELET COUNT (BEAKER) (test 409 K/CU MM 150-430 code = 756) MEAN PLATELET VOLUME (BEAKER) 9.0 fL 6.0-11.5 (test code = 754) NUCLEATED RED BLOOD CELLS 0 /100 WBC 0-0 (BEAKER) (test code = 413) NEUTROPHILS RELATIVE PERCENT 61 % (BEAKER) (test code = 429) LYMPHOCYTES RELATIVE PERCENT 27 % (BEAKER) (test code = 430) MONOCYTES RELATIVE PERCENT 9 % (BEAKER) (test code = 431) EOSINOPHILS RELATIVE PERCENT 3 % (BEAKER) (test code = 432) BASOPHILS RELATIVE PERCENT 1 % (BEAKER) (test code = 437) NEUTROPHILS ABSOLUTE COUNT 3.70 K/ L 1.80-8.00 (BEAKER) (test code = 670) LYMPHOCYTES ABSOLUTE COUNT 1.61 K/ L 1.48-4.50 (BEAKER) (test code = 414) MONOCYTES ABSOLUTE COUNT (BEAKER) 0.52 K/ L 0.00-1.30 (test code = 415) EOSINOPHILS ABSOLUTE COUNT 0.16 K/ L 0.00-0.50 (BEAKER) (test code = 416) BASOPHILS ABSOLUTE COUNT (BEAKER) 0.06 K/ L 0.00-0.20 (test code = 417) IMMATURE GRANULOCYTES-RELATIVE 0 % 0-0 PERCENT (BEAKER) (test code = 2801) Urinalysis w/[id number] 18:13:00 Test Item Value Reference Range Interpretation Comments Color, UA (test code = Yellow 5778-6) Clarity, UA (test code Clear = 5767-9) Specific [place], UA 1.025 1.001-1.035 (test code = 5811-5) pH, UA (test code = 7.0 5.0-8.0 5803-2) Protein, UA (test code Negative Negative = 25573-4) Glucose, UA (test code Negative Negative = 365) Ketones, UA (test code Negative Negative = 2514-8) Bilirubin, UA (test Negative Negative code = 89616-2) Blood, UA (test code = Negative Negative 60980-7) Nitrite, UA (test code Negative Negative = 5802-4) Leukocytes, UA (test Negative Negative code = 5799-2) Urobilinogen, UA (test 0.2 mg/dL 0.2-1 code = 44323-9) Bacteria, UA (test None Seen code = 45257-0) RBC, UA (test code = None Seen See_Comment [Autom ated message] 799-7) The system [employer] generated this result transmitted ref erence range: /HPF. Th e reference range was not used to int erpret this result as normal/abnormal . WBC, UA (test code = None Seen See_Comment [Autom ated message] 27017-5) The system [employer] generated this result transmitted ref erence range: /HPF. Th e reference range was not used to int erpret this result as normal/abnormal . SQUAMOUS EPITHELIAL None Seen See_Comment [Automa aleks message] (test code = 50636-8) The sy stem which generated this result transmitted ref erence range: /HPF. Th e reference range was not used to int erpret this result as normal/abnormal . Specimen Source (test code = 2795) [facility] [id number] 18:13:00 Test Item Value Reference Range Interpretation Comments COLOR (BEAKER) (test code = Yellow 470) CLARITY (BEAKER) (test code = Clear 469) SPECIFIC GRAVITY UA (BEAKER) 1.025 1.001-1.035 (test code = 468) PH UA (BEAKER) (test code = 7.0 5.0-8.0 467) PROTEIN UA (BEAKER) (test code Negative Negative = 464) GLUCOSE UA (BEAKER) (test code Negative Negative = 365) KETONES UA (BEAKER) (test code Negative Negative = 371) BILIRUBIN UA (BEAKER) (test Negative Negative code = 462) BLOOD UA (BEAKER) (test code = Negative Negative 461) NITRITE UA (BEAKER) (test code Negative Negative = 465) LEUKOCYTE ESTERASE UA (BEAKER) Negative Negative (test code = 466) UROBILINOGEN UA (BEAKER) (test 0.2 mg/dL 0.2-1.0 code = 463) BACTERIA (BEAKER) (test code = None Seen 517) RBC UA-MANUAL (BEAKER) (test None Seen /HPF code = 1659) WBC UA-MANUAL (BEAKER) (test None Seen /HPF code = 1661) SQUAMOUS EPITHELIAL MANUAL None Seen /HPF (BEAKER) (test code = 1663) SOURCE(BEAKER) (test code = 2795) RAD, CHEST, 1 VIEW, NON [id number] 16:45:00Reason for exam:->fever and abdominal painShould this be performed at the bedside?->Yes [facility] [place] [facility] 1995 Sex: FFINAL REPORT CHEST AP PORTABLE History provided: Fever, abdominal pain Radiographically normal-appearing heart and lungs. Signed: Polo Onofre Verified Date/Time: 11/21/2020 16:45:24 Reading Location: [facility] Radiology Reading Room XR chest 1 view portable / [id number] 16:45:00 Interface, External Ris In - 11/21/2020 4:47 PM CDTFINAL REPORT CHEST AP PORTABLE History provided: Fever, abdominal pain Radiographically normal-appearing heart and lungs. Signed: Polo Onofre Verified Date/Time: 11/21/2020 16:45:24 Reading Location: [facility] Radiology R eading Room [facility] [id number] 15:53:00 Test Item Value Reference Range Interpretation Comments Case Report (test code Surgical Pathology = 104) Report Case: [id number] Authorizing Provider: Beatriz Martinez MD Collected: 11/08/2020 04:08 PM Ordering Location: [facility] PERIOPERATIVE Received: 11/09/2020 08:07 AM SERVICES Pathologist: Gwen Velez MD Specimen: Uterus w/Cervix & Bilateral Fallopian Tubes, UTERUS, CERVIX AND BILATERAL FALLOPIAN TUBES. DIAGNOSIS (test code = p2nijXBlIDRqx1oqHKIajLR 3220) uZzEwMzNcZnRuYmpcdWMxIH tccnRmMVxlcGljOTIwMlxhb eTbZQWzcJVnC5MgwgffGZlh RU2qGB1cfGwlxDRnlTRrSPM iGgToq9zcf851tAJsk7cuCK VMwehckGc4qLgzJ73qg5G0N whqB99szMQeCIwmsINnpdiy czIwIFVURVJVUyBXSVRIIEN FUlZJWCBBTkQgQklMQVRFUk FMIEZBTExPUElBTiBUVUJFU eziFJbTMFOXUEAYQ50BXJDO SFTENBzASCNAGDihQ5KARVo TH9XEIZ8VZJmbzMPcIRJKWH 9NRVRSSVVNOlxwYXIgICAgL MIWDy3PFWEQZbWKPLZSFFWZ QE1CHXZDWLEITYVsxqWQTI0 NRVRSSVVNOlxwYXIgICAgLS NLDuLMRToJVYPVG2IZXHRZP QOIR6vTK0vCGGIZEZHMMFYS P39quCXmTVRTS6iQZFONRDv PUElBTiBUVUJFOiBccGFyIC AiGN3pPWCPRJRRRbBCANCWA 1XexMHgUFcBGkVfMqWYDL1F UPJHDMVZCjV2WONxjaRlGJN xBJ5XGKHVO91DUcuGML7PQL HHWHtAIQ8PLCVuIOfPPDVYF JgJKfndVEZjlQQjHX5UM4Py GMkjMEO6s9kcdTWtIDDifDI xODAwMFxhbnNpXGRlZmxhbm bwHBOoHOC4vuDoIIErUFsiY AYjCHyhNw4rtQHqkTeoSwGs TQKit0heevYJvqvplCp8w3a hCYCwNcM5oYCtCSclA3snmu VyoENnOPVvEHc8aC65BUGur Q3jbJAcYFsgllOmOmL2WHek TKTvErE4YMOteFElUNJeR9d yZWQwXGdyZWVuMFxibHVlMC K2aBfvc2P5dGYmdNBaiBonB sFjRnFtSvWPr4QkNRb1nDxp I0UzMNQuBqB2jCNqPFLvRTt wUGPkQPHbsoJ7aU59BSgvqt H3dWClf0Awe27rx392gS5bc BXdMQT7MZNhHVUyyCXxKGZs PWK2SWSyqZQgG2trNHFbGV6 gehbzPHooMWzjHWQfyRF8XE WwgWYaD7AmBVXmGFwuMLAdo ew9JqIjXj3ocOZfoZshTScc a3ehi2vpwJNiZop1PDWqTiR hQaedUMbvh2Dkp8ffRZZnpw 9tHHV9xQDowCuhv6O6fNRbS VKhuJRkJZKeXU6qxALzXZKc jQ6ybcjpEWMgWhNveqabHTB akDxgpgIfNj4wkMkmGSA2NS wuR3itsE8qAdJ3FUmiJ5nvi O5cIDa7DFckUVVwlET0tyD3 YSAwjBImA1WzfV4sMVYuVJ1 iogg7z9rpCNN0IZytZJDaBb F8fyJ2DENacNHcSZOuwRmjR Rymx068WQR6QqJpPCSdi3Vz J3VjvWpwG25baQelS49wSKW plExfdV1szOwjcI7eAcXsLu KzXBucmYbwAH3wWTNuW5zux ZSzMDEaCKYtO1raAzAayG6e cBlzYRbaxpVoBPYnXes8LTD yePYgYDGwNcn4SPMlLPYuH2 6yezpdKMN8mJ3ha9son4XyM IojBOL8ETQif01fQRamccJ5 USgsSd50YWbcHnD4JKymWYX 9fQ== CPT Code(s) (test code q2uzyTVgCPEbdMI1MbBcUOP = 3357) ez9rug7EflHVvyVTyEKhuwX BviwQdzf20vFF3gL07KS9kZ VPgMdI8BVMppzR2Wax7DEEr YCNwiRVdI024j5xrj2tvwgJ ojQR6xFieXJCeIRVfZBbwIR ZzMjAgODgzMDdccGFyfQ== CLINICAL HISTORY (test x9rwbSPsWSMwgEX3CsRxGAU code = 3356) pi4pvg8NiiVUkkTXgZJkceW HpbhRtnl63sOH6kP05HO4mK YIxRnR0GCBnqhR7Qeu0JPPv SVSkiKGaS302k7yuh1xlebV liJH5qZreMIAgYWUvKDjtEZ YnYyWwFEpjRBNwwORbUW0uO MPeJKL6SC24JR0obuK3viXe dGlvblxwYXJ9 SPECIMEN SOURCE (test z7ktcUAhBOSoyFZ8EbLiMGU code = 3377) wp7teo2QaaSZsjXMbFIiljS IosyTgmg86nOC5eU65SV4xW NSlDnE6TJBjbzP4Byi7FNKh KGJquXSfR967l8jfu7vsawG rbFD5dDrkRGShVJMjQSqwVO VkNbOwQWGgvmYcSKStAKN5a XgsIGFuZCBiaWxhdGVyYWwg PpVasC6veBUmRDF6VnSdeHF yfQ== GROSS DESCRIPTION h9rbyOUoTBAtfLL0PiSvFCR (test code = 3366) rr5quw2LglNMqgCOkAUgtmP GtmmMiew85wBH9jE18II9uQ ERbWsN1XSMufwD0Mic6IPAh ZIJqjFLyM455k4qah9ezucB haNO8aHyyAKPuTEYxLZuzXT ZzMjAgVGhlIHNwZWNpbWVuI JkjFAWiN2KltcRcTDckPHNx aMN9hLXjHVQsYKMpBSAhuTB kIHdpdGggdGhlIHBhdGllbn BckxDtTG1jDQPcWBVsX6ThE HFzV01jAIXcfJ1cTNEaNI4j EWRkd8xjgrG2YLAgJQWhVbK 1BCX4oeT1lNZoNBFcldVsjJ BhbmQgYmlsYXRlcmFsIGZhb LfzwBqbtfI6zLLvzcGpWK8j OWKibrVum6EqSF9uXCEqwFj vuLFcCVD3x111OCZgPYBqxN OvURv0JWQmiAelXe94VOVoG GL1rRLzkY7aILMoFFjuVxKw xE0aGFL9QeMmD01kY70peeJ vrT8nM99qneKnGE7jVVYaXB MjcZTxcqDwaueickF7ybEpi 1D2JOTjq0JwJUsppAfmUMG8 YWNoZWQgcmlnaHQgZmFsbG9 jsENeQFP4HzAic7f5pHRhtM 1icmlhdGVkIGVuZCBtZWFzd BEvghqrHE1jDIQmGBleIMpo rjp7nUObvrInVJ48OMDbVNp tHXOaVB5cyCSgMFHxPTJftP EoV6euRYLaKJP0HTBiwLskf FnkiwS8yFVdEStxvQbsNibv PhQoBIWrMBCjwrCxyJIlj8M jwS3vPKCtNCWkaYJnqgOiZT 2laTgtq4d4oTRpUcBpY05wi G2pTHuuyAP3XRIsPFYcHNIw yLlajNBtMUtgf9BqDM6koXP iZSBoYXMgYSBwYXJhdHViYW nlP7iyfTWmWE21QOgmFK2nZ DqbWP7rRABmLS3cSUAaJZHa VWV8vYpcsSBrpYyrxa86CU3 yLX2nWOMkv464hYK3eUUwQT 8hWNIhu5CmFTJnLGzuc9whq dEhoNWxkeOiEmztZY2fLSmn SCWtIR5pHKHzrRJtVPmcCQI lRH5owr66oyHrcbEjeKUcQY 0fIIBuRDdjQDgiUCJ4ZVC2H DRlcIDojoNbrb7tMWvxDF59 z48akMTksX2gfBUfxGjfqs8 7RM3dJL6iXXTwQZUvN6SkEQ GgBQIltvTlyLJxvRCriG8yS R93ADWtMRxjBDfyTHM7PXE6 AQEgtFHkggZxpw9gKx1mvL9 8gzImuNLdeOAgz2Y1dXRjMC FyZSBpZGVudGlmaWVkLiBcc ELvFDQfafPNMDV9eD9qNIKs RRK0BPVnBMQsmxXbljkezdZ nHPF5xIu3QUXwAADxt6T6MD Lzr4JtE8Ewqoj0QkPATquaP T43MWNnt8RzSU8yn021l14h qPOuoG70NWO1EUXiu6G6ZTF gs1AsPM2xv847e31upGYddM 63OZG1ZQPnfBfijFCkoK3kc mlhdGVkIGVuZCBlbnRpcmVs lNTccFCfeFL9TBKjJTzrwms kj4l7iYKuzQefvEUnDMOkyX LdYZqcR8emaNsgDLFnUJRoh GMxr9PnjIL7tNWwSLSbg7Pm ROBhW2Czp82pPC4eETFbD0t 2HBFhoZvvdJxqawM9wXZbFi UQIwgdeNXnwXTfyX8nwrylo GVkLCBlbnRpcmVseSBzdWJt rNF8OIS6QBW1ZUMhRAHpPNT kxiNbmIc5XMLfnt8gzeFqMQ M0oZ8wzlJbXmNqJRO0AHIcu KshhCllfiZ6pVYiAuZuUTab cGwgXHBhcn0= MICROSCOPIC l9qxnUOmCLOcfQQ9BmAkSNC DESCRIPTION (test code gx2pze8PzaHKgfRLaQEhkvJ = 3371) IiuhAqaq44zBI9zI02RR5vI UVyOhU8RJAkydP4Giq2LDGq HOKdkNIhD483c9xca9xgmzL poTE3gUxlKICwSPPcSNsaLG TrMzReKSEyRo1zaCRoQEkrT XJ[address] [facility] performed at ([facility], Department of code = 2777) Pathology, [address] [place] [address], Technical component [facility] was performed at ([facility], code = 2778) Department of Pathology, [address] [place] [address], Professional component [facility] was performed at ([facility], Department of code = 2779) Pathology, [address] [place] [address], [facility] [id number] 15:53:00Surgical Pathology Report Case: [id number] Authorizing Provider: Beatriz Martinez MD Collected: 11/08/2020 04:08 PM Ordering Location: [facility] PERIOPERATIVE Received: 11/09/2020 08:07 AM SERVICES Pathologist: Gwen Velez MD Specimen: Uterus w/Cervix & Bilateral Fallopian Tubes, UTERUS, CERVIX AND BILATERAL FALLOPIAN TUBES. UTERUS WITH CERVIX AND BILATERAL FALLOPIAN TUBES, HYSTERECTOMY AND BILATERAL SALPINGECTOMY:ENDOMETRIUM: - PROLIFERATIVE ENDOMETRIUMMYOMETRIUM: - NO SIGNIFICANT PATHOLOGIC ALTERATIONRIGHT FALLOPIAN TUBE: - PARATUBALCYSTLEFT FALLOPIAN TUBE: - NO SIGNIFICANT PATHOLOGIC ALTERATIONMG/pl Signing Pathologist Direct Phone Line: [phone] signed by Gwen Velez MD on 11/10/2020 at 3:53 [id number] or frequent menstruationUterus, cervix, and bilateral fallopian tubeThe specimen is received in fixative and labeled with the patient's name, medical record number and designated as "uterus with cervix and bilateral fallopian tubes" and consists of a hysterectomy specimen (70 gm, 7.5cm superior to inferior, 5.5 cm cornu to cornu and 2.5 cm anterior to posterior) with attached rightfallopian tube with fimbriated end measuring 5.0 cm in length and 0.7 cm in diameter and attached left fallopian tube with fimbriated end measuring 4.5 cm in length with 0.5 cm in diameter. The right fa llopian tube has a paratubal cyst (0.5 x 0.3 x 0.3 cm). The cervix is pink-han and smooth with no discrete lesions identified. The endometrium is red-brown and is 0.3 cm in greatest thickness. The myometrium is pink-han and trabeculated and is up to 1.5 cm in greatest thickness. No intramural nodulesare identified. Section code: A1, anterior cervix; A2, posterior cervix; A3, anterior endomyometrium; A4, posterior endomyometrium; A5, right fimbriated end entirely submitted along with right paratubal cyst; A6, care support representative cross sections of right fallopian tube; A7, left fimbriated, entirely submitted; A8, care support representative cross sections of left fallopian tube. MG/pl Performed [facility], Department of Pathology, [address] [place] [id number], [facility], Department of Pathology, [address] [place] [address], Hg[facility], Department of [facility]ology, [address] [place] [address], SZSG-CoV2/Influenza/RSV RT-PCR (Symptomatic ONLY)2020-11-08 20:30:00 Test Item Value Reference Range Interpretation Comments SARS-COV2/RT-PCR (test Positive Negative AA code = 63162-4) Influenza A RT-PCR Negative Negative (test code = 19959-1) Influenza B RT-PCR Negative Negative (test code = 98559-6) RSV by RT-PCR (test Negative Negative Performa nce of the code = 17088-8) Xpert Xpress SARS-CoV-2/Flu/ RSV test has only been established in nasopharyngeal swab specimens. Use of the Xpert Xpress SARS-CoV-2/Flu/ RSV test with other spec imen types has not b een assessed and performance characteristics are unknown. As wi th any molecular test, mutations withi n the targeted geneti c regions identif ied by the Xpert Xpres s SARS-CoV-2/Flu/ RSV test could affect pr vinicius and/or probe bi nding resulting in fa ilure to detect the pres ence of virus or the vi clara being detected less predictably.Neg ative results do not preclude SARS-CoV-2, Inf luenza A/B, or RSV inf ection and should not be used as the sole bas is for treatment or ot her patient managem ent decisions. Res ults from the Xpert Xpress SARS-CoV-2/Flu/ RSV test should be corre lated with the clinic al history, epidemiological data, and other data available to th e clinician evalu ating the patient. I nvalid test results ma y occur from improper s pecimen collection; josh lure to follow the lavon mmended sample collecti on, handling, and s torage procedures; kristie hnical error. False ne gative results may occ ur if virus is presen t at levels below th e analytical limi t of detection (LOD: 131 copies/mL). Vi ral nucleic acid ma y persist in vivo , independent of virus viability. Dete ction of analyte target( s) does not imply that the corresponding v irus(es) are infectious or are the causative a gents for clinical sy mptoms. Recent patient exposure to FluMist or other live attenuated influenza vacci cherise may cause inaccurat e positive result s.This test has been authorized by [employer] under an EUA for use by authorized laboratories. This test is only au thorized for the duratio n of the declaration raffi t circumstances e xist justifying the authorization o f emergency use o f in vitro diagnosti c tests for detection a nd/or diagnosis of CO VID-19 under Section 5 64(b)(1) of the Federal Food, Drug and Cosmet ic Act, 21 U.S.C. 360bbb-3(b)(1), unless the authorizati on is terminated or r evoked sooner. Fact Sh eet for Healthcare Prov iders: https://www.[employer] /Documents/Xper t%20Xpre ss%25LCXF-VdA-1 -Flu-RSV /3024508%20Rev .%20B%20 HCP%20Fact%20Sh eet.pdf Fact Sheet for Healthcare Jaz ents: https://www.[employer] /Documents/Xper t%20Xpre ss%05ACUT-MdZ-1 -Flu-RSV /302-4507%20Rev .%20B%20 Patient%20Fact% 20Sheet. pdf Lab Interpretation Abnormal (test code = 85498-1) [facility] [id number] 20:30:00 Test Item Value Reference Range Interpretation Comments SARS-COV2/RT-PCR Positive Negative AA (test code = 1747997) INFLUENZA A RT-PCR Negative Negative (test code = 2132800) INFLUENZA B RT-PCR Negative Negative (test code = 0225228) RSV RT-PCR (test Negative Negative Performanc e of the Xpert code = 7914232) Xpress SARS- CoV-2/Flu/RSV test has only b een established in nasopharyngeal swab specimens. Use of the Xpert Xpress SARS-CoV-2/Flu/ RSV test with other spec imen types has not been as sessed and performance characteristics are unknown. As wi th any molecular test, mutations within the targ eted genetic regions identified by Xpert Xpress SARS-CoV -2/Flu/RSV test could affe ct primer and/or probe bi nding resulting in fa ilure to detect the pres ence of virus or the vi clara being detected less predictably.Neg ative results do not preclude SARS-CoV-2, Inf luenza A/B, or RSV inf ection and should not be u sed as the sole basis for treatment or other patien t management deci sions. Results from e Xpert Xpress SARS-CoV -2/Flu/RSV test should be correlated with the clinic al history, epidem iological data, and other data available to e clinician evalu ating the patient. Inval id test results may occ ur from improper specim en collection; josh lure to follow the lavon mmended sample collecti on, handling, and s torage procedures; kristie hnical error. False ne gative results may occ ur if virus is presen t at levels below e analytical limi t of detection (LOD: 131 copies/mL). Vi ral nucleic acid ma y persist in vivo, indepe ndent of virus viability . Detection of an alyte target(s) does not imply that the corres ponding virus(es) are i nfectious or are the caus ative agents for clin ical symptoms. Rece nt patient exposure to Flu Mist or other live atte nuated influenza vacci cherise may cause inaccurat e positive results.This te st has been authorized by FDA under an EUA fo r use by authorized labo ratories. This test is on ly authorized for the duration of the declaration raffi t circumstances e xist justifying the authorization o f emergency use o f in vitro diagnostic test s for detection and/o r diagnosis of CO VID-19 under Section 5 64(b)(1) of the Federal Food, Drug and Cosmetic Ac t, 21 U.S.C. 360bbb -3(b)(1), unless the auth orization is terminated o r revoked sooner.Fact She et for Healthcare Prov iders: https://www.[employer].com/D ocuments/Xpert% 20Xpress%2 9NZOC-ClX-0-Flu -RSV/302- 508%20Rev.%20B% 20HCP%20Fa ct%20Sheet.pdfF act Sheet for Healthcare Patients: https://www.[employer]/D ocuments/Xpert% 20Xpress%2 8QFWT-BlQ-4-Flu -RSV/302-4 507%20Rev.%20B% 20Patient% 20Fact%20Sheet. pdf Screen, [id number] 13:18:00 Test Item Value Reference Range Interpretation Comments Preg Test, Ur (test code = 2112-1) [facility] [id number] 13:18:00 Test Item Value Reference Range Interpretation Comments TEST URINE (BEAKER) (test Negative code = 583) Type and screen, [id number] 15:55:00 Test Item Value Reference Range Interpretation Comments ABO/RH AUTOMATED (BEAKER) (test O POSITIVE ECHO code = 2260) Ab Scrn (test code = 890-4) NEGATIVE [facility]CHO [facility] [id number] 15:01:00 Test Item Value Reference Range Interpretation Comments Sodium (test code = 140 meq/L 017-657 9841-2) Potassium (test code = 3.4 meq/L 3.6-5.5 L 2823-3) Chloride (test code = 106 meq/L 98-106 2075-0) CO2 (test code = 23 meq/L 20-29 2028-9) BUN (test code = 9 mg/dL 10-26 L 3094-0) Creatinine (test code 0.74 mg/dL 0.5-1.2 = 2160-0) Glucose (test code = 101 mg/dL 70-110 2345-7) Calcium (test code = 9.0 mg/dL 8.5-10.5 44820-5) EGFR (test code = 114 mL/min/1.73 [place] [address]-8) NOT ACCURATE CREATININE CLEARANCE IN PREDICTING GLOMERULAR FILTRATION RATE . ESTIMATED GFR I S NOT APPLICABLE FOR DIALYSIS PATIENTS. VERITO (test code = VERITO) Outside Physical Damage Appraiser ID - [id number] ID - [id number] ID - [id number] ID - [id number] ID - [id number] ID - [id number] ID - [id number] ID - [id number] ID - [id number] ID - [id number] ID - [id number] ID - [id number] ID - [id number] Lab Interpretation Abnormal (test code = 35384-9) [facility] [id number] 15:01:00 Test Item Value Reference Range Interpretation Comments SODIUM (BEAKER) 140 meq/L 135-148 (test code = 381) POTASSIUM (BEAKER) 3.4 meq/L 3.6-5.5 L (test code = 379) CHLORIDE (BEAKER) 106 meq/L 98-106 (test code = 382) CO2 (BEAKER) (test 23 meq/L 20-29 code = 355) BLOOD UREA NITROGEN 9 mg/dL 10-26 L (BEAKER) (test code = 354) CREATININE (BEAKER) 0.74 mg/dL 0.50-1.20 (test code = 358) GLUCOSE RANDOM 101 mg/dL 70-110 (BEAKER) (test code = 652) CALCIUM (BEAKER) 9.0 mg/dL 8.5-10.5 (test code = 697) EGFR (BEAKER) (test 114 mL/min/1.73 ESTIM ATED GFR IS code = 1092) sq m NOT ACCURATE CREATININE CLEARANCE IN PREDICTING GLOMERULAR FILTRATION RATE . ESTIMATED GFR I S NOT APPLICABLE FOR DIALYSIS PATIEN TS. Outside Physical Damage Appraiser ID - [id number] ID - [id number] ID - [id number] ID - [id number] ID - [id number] ID - [id number] ID - [id number] ID - [id number] ID - [id number] ID - [id number] ID - [id number] ID - [id number] ID - [id number] W/PLT COUNT & AUTO [id number] 14:33:00 Test Item Value Reference Range Interpretation Comments WHITE BLOOD CELL COUNT (BEAKER) 4.7 K/ L 4.0-10.0 (test code = 775) RED BLOOD CELL COUNT (BEAKER) 4.63 M/ L 4.00-5.00 (test code = 761) HEMOGLOBIN (BEAKER) (test code = 8.4 GM/DL 12.0-15.5 L 410) HEMATOCRIT (BEAKER) (test code = 30.5 % 36.0-46.0 L 411) MEAN CORPUSCULAR VOLUME (BEAKER) 65.9 fL 82.0-99.0 L (test code = 753) MEAN CORPUSCULAR HEMOGLOBIN 18.1 pg 27.0-33.0 L (BEAKER) (test code = 751) MEAN CORPUSCULAR HEMOGLOBIN CONC 27.5 GM/DL 32.0-36.0 L (BEAKER) (test code = 752) RED CELL DISTRIBUTION WIDTH 16.9 % 12.0-15.0 H (BEAKER) (test code = 412) PLATELET COUNT (BEAKER) (test 250 K/CU MM 150-430 code = 756) MEAN PLATELET VOLUME (BEAKER) 10.0 fL 6.0-11.5 (test code = 754) NUCLEATED RED BLOOD CELLS 0 /100 WBC 0-0 (BEAKER) (test code = 413) NEUTROPHILS RELATIVE PERCENT 60 % (BEAKER) (test code = 429) LYMPHOCYTES RELATIVE PERCENT 33 % (BEAKER) (test code = 430) MONOCYTES RELATIVE PERCENT 6 % (BEAKER) (test code = 431) EOSINOPHILS RELATIVE PERCENT 1 % (BEAKER) (test code = 432) BASOPHILS RELATIVE PERCENT 0 % (BEAKER) (test code = 437) NEUTROPHILS ABSOLUTE COUNT 2.77 K/ L 1.80-8.00 (BEAKER) (test code = 670) LYMPHOCYTES ABSOLUTE COUNT 1.55 K/ L 1.48-4.50 (BEAKER) (test code = 414) MONOCYTES ABSOLUTE COUNT (BEAKER) 0.28 K/ L 0.00-1.30 (test code = 415) EOSINOPHILS ABSOLUTE COUNT 0.03 K/ L 0.00-0.50 (BEAKER) (test code = 416) BASOPHILS ABSOLUTE COUNT (BEAKER) 0.02 K/ L 0.00-0.20 (test code = 417) IMMATURE GRANULOCYTES-RELATIVE 0 % 0-0 PERCENT (BEAKER) (test code = 2801) CT Abdomen Pelvis W [id number] 19:43:00Addendum by Zora Cornell on 10/22/2020 8:00 PM ADDENDUM #1 Addendum: Please note that there is a mistake in the description of the pelvis findings. The tip is within the vagina, not the bladder. Interface, Radiology Results Incoming - 10/22/2020 7:46 PM CST EXAMINATION: CT ABDOMEN PELVIS W CONTRASTCLINICAL HISTORY: 25 yearsFemale Abdominal pain with nausea vomiting and recent history of cholecystectomyTECHNIQUE: Multiple axial images of the abdomen and pelvis were obtained following intravenous administration of iodinated contrast. Sagittal and coronal computerized reformatted images were also obtained. CT imaging was performed with iterative reconstruction techniques and/or automated exposure control to reduce radiation dose. COMPARISON: 08/10/2020IMPRESSION:LUNG BASES:Lung bases are clearABDOMEN:Liver: The liver is normal. No focal mass.Gallbladder/Biliary: The gallbladder is absent. Gallbladder fossa appears normal and unchanged. Bile ducts are normal caliber.Spleen: The spleen is not enlarged.Pancreas: The pancreas is unremarkable.Adrenal Glands: The adrenal glands are unremarkable.Kidneys: Thekidneys are unremarkable. No mass, hydronephrosis or calculi.Vascular: The abdominal aorta is nonaneurysmal.Nodes: No enlarged retroperitoneal or mesenteric lymphadenopathy.Bowel: The bowel is normal caliber and there is no appreciable bowel inflammation. The appendix is normal.Ascites/fluid collections: No ascites or fluid collections.PELVIS:Uterus, ovaries and bladder are within normal range. Thereis a tampon in the bladder. No free fluid is seen. No pelvic lesion is seen. MUSCULOSKELETAL: No suspicious osseous lesions. SUMMARY:1.Negative study, unchanged [facility]-[id number] [facility]XR [facility] 1 Vw [id number] 18:58:25Hm Interface, Radiology Results Incoming - 10/22/2020 7:01 PM CST EXAMINATION: XR CHEST 1 VW PORTABLECLINICAL HISTORY: 25 years Female SOB; PRESUMPTIVE COVID-19. COMPARISON: None available.TECHNIQUE: Portable AP radialIMPRESSION:Lines/Tubes: None.Lungs/Pleura: *Adequate lung volumes.*No lobar consolidation, pleural effusion or pneumothorax. Heart/Mediastinum: Normal cardiomediastinal silhouette and pulmonary vascularity. Bones: No acuteosseous abnormality.[id number] MethodistUrine [id number] 18:33:30 Test Item Value Reference Range Interpretation Comments Urine culture (test SEE COMMENT Bacteriu latrice screen code = 0203214) negative. [facility] [id number] 09:31:00Surgical Pathology Report Case: [id number] Authorizing Provider: Beatriz Martinez MD Collected: 08/23/2020 08:08 AM Ordering Location: [facility] PERIOPERATIVE Received: 08/23/2020 11:27 AM SERVICES Pathologist: Gwen Velez MD Specimens: A) -Curettings, Endocervical B) - Curettings, Endometrial A. ENDOCERVIX, CURETTINGS: - BENIGN ENDOCERVICAL MUCOSAB. ENDOMETRIUM, CURETTINGS: - ENDOMETRIAL POLYP - BACKGROUND PROLIFERATIVE ENDOMETRIUM Signing Pathologist Direct Phone Line: [phone] signedby Gwen Velez MD on 08/24/2020 at 9:31 [id number] s2Iproz abdominal pain A. Curettings endocervical; B. Currettings, endometrial Specimen A is received in fixative and labeled with the patient's name, medical record number and designated as "curettings endocervical" and consists of red clear mucoid material measuring 2.5 x 1.5 x 0.3 cm in aggregate. The specimen is entirely submitted intoA1. Specimen B is received in fixative and labeled with the patient's name, medical record number and designated as "curettings, endometrial" and consists of white-han tissue received within a mesh bagmeasuring 3.0 x 2.5 x 0.5 cm in aggregate. The specimen is entirely submitted into B1. Additionallywithin the specimen container are red-brown tissue fragments received on a Telfa pad. The tissue fragments are also submitted into B1. MG/pl A-B: Performed [facility]ly [facility], Department of Pathology, [address] [place] [address], Nnbqjt [facility], Department of Pathology, [address] [place] [address], ZvFormerly [facility], Department of [facility], [address] [place] [address], MDPWCYLWQ SCREEN, [id number] 06:27:00 Test Item Value Reference Range Interpretation Comments TEST URINE (BEAKER) (test Negative code = 583) [id number] 00:00:00Ordered by an unspecified provider.[facility]Asymptomatic ONLY)2020-08-20 07:08:00 Test Item Value Reference Range Interpretation Comments SARS-COV2/RT-PCR Negative Not Detected, (test code = Negative, See 89988-2) external report for linked test SARS-COV-2 [facility] PERFORMING LAB (test code = 74104-8) VERITO (test code = Negative result for this VERITO) test determines that SARS-CoV-2 RNA was not present in the specimen above the Limit of Detection (LOD). However, Negative results do not preclude SARS-CoV-2 infection and should not be used as the sole basis for treatment or patient management decisions. Negative results must be combined with clinical observations, patient history, and epidemiological information. A false negative result may occur if a specimen is improperly collected, transported or handled. A false negative result should be considered if patient's recent exposures or clinical presentation indicate that COVID-19 (SARS-CoV-2) is likely and diagnostic tests for other causes of illness are negative. Re-testing should be considered in cases of suspected false negatives. The limit of detection for this assay is 100 copies/mL. This SARS CoV-2 test is a real-time RT-PCR test intended for the qualitative detection of nucleic acid from SARS-CoV-2 in a nasopharyngeal swab specimen collected from individuals suspected of COVID-19 by their healthcare provider. This test has not been Food and Drug Administration (FDA) cleared or approved. This is a modified version of an approved Emergency Use Authorization (EUA) and is in the process of review by the FDA. Once authorized by the FDA, the issued EUA will be effective until the declaration that circumstances exist justifying the authorization of the emergency use of in vitro diagnostic tests for detection and/or diagnosis of COVID-19 is terminated under Section 564(b)(2) of the Act or the EUA is revoked under Section 564(g) of the Act. Testing was performed using the [employer] SARS-CoV-2 assay. Fact Sheet for Healthcare Providers:https://www.[employer] jarod.stevenson/lucía/RT_SA PF-AcQ-3_QQM_Ywzv_Iridw_ 51-179392.pdf Fact Sheet for Healthcare Patients:https://www.[facility].stevenson/lucía/RT_SAR X-MvI-1_Xcublik_Rvfl_Yxs et_EN_51-971735L3.pdf Performing Laboratory:[facility] [place] [address] [facility]OV[facility] ([facility])2020-08-20 07:08:00 Test Item Value Reference Range Interpretation Comments SARS-COV2/RT-PCR (test Negative Not Detected, Negative, code = 9303950) See external report for linked test SARS-COV-2 PERFORMING LAB [facility] (test code = 5255700) Negative result for this test determines that SARS-CoV-2 RNA was not present in the specimen above the Limit of Detection (LOD). However, Negative results do not preclude SARS-CoV-2 infection and should not be used as the sole basis for treatment or patient management decisions. Negative results mustbe combined with clinical observations, patient history, and epidemiological information. A false negative result may occur if a specimen is improperly collected, transported or handled. A false negative result should be considered if patient's recent exposures or clinical presentation indicate that COVID-19 (SARS-CoV-2) is likely and diagnostic tests for other causes of illness are negative. Re-testing should be considered in cases of suspected false negatives.The limit of detection for this assay is 100 copies/mL.This SARS CoV-2 test is a real-time RT-PCR test intended for the qualitative detection of nucleic acid from SARS-CoV-2 in a nasopharyngeal swab specimen collected from individuals susp ected of COVID-19 by their healthcare provider.This test has not been Food and Drug Administration (FDA) cleared or approved. This is a modified version of an approved Emergency Use Authorization (EUA) and is in the process of review by the FDA. Once authorized by the FDA, the issued EUA will be effective until the declaration that circumstances exist justifying the authorization of the emergency use of in vitro diagnostic tests for detection and/or diagnosis of COVID-19 is terminated under Section 564(b)(2) of the Act or the EUA is revoked under Section 564(g) of the Act.Testing was performed using the [employer] SARS-CoV-2 assay.Fact Sheet for Healthcare Providers:https://www.[employer].stevenson/lucía/ LC_RXGE-RhH-5_CGZ_Bkns_Vlvzg_49-175823.pdfFact Sheet for Healthcare Patients:https://www.[employer] darryl/lucía/WA_IATS-QvG-9_Ppwzrgd_Fkuy_Vozhu_ZS_17-354924S8.pdfPerforming Laboratory:[place] [address] [place] [address] BASIC METABOLIC [id number] 11:08:00 Test Item Value Reference Range Interpretation Comments SODIUM (BEAKER) (test 140 meq/L 135-148 code = 381) POTASSIUM (BEAKER) 3.8 meq/L 3.6-5.5 (test code = 379) CHLORIDE (BEAKER) 106 meq/L 98-106 (test code = 382) CO2 (BEAKER) (test 26 meq/L 20-29 code = 355) BLOOD UREA NITROGEN 7 mg/dL 10-26 L (BEAKER) (test code = 354) CREATININE (BEAKER) 0.70 mg/dL 0.50-1.20 (test code = 358) GLUCOSE RANDOM 95 mg/dL 70-110 (BEAKER) (test code = 652) CALCIUM (BEAKER) 8.7 mg/dL 8.5-10.5 (test code = 697) EGFR (BEAKER) (test INSUFFIC IENT CLINICAL code = 1092) DATA TO CALCULA TE ESTIMATED GFR. Outside Physical Damage Appraiser ID - LITOOperator ID - LITOOperator ID - LITOOperator ID - LITOOperator ID - LITOOperator ID - LITOOperator ID - LITOOperator ID - LITOOperator ID - LITOOperator ID - LITOOperator ID - LITOOperator ID - LITOOperator ID - LITOCBC W/PLT COUNT & AUTO [id number] 10:57:00 Test Item Value Reference Range Interpretation Comments WHITE BLOOD CELL COUNT (BEAKER) 3.7 K/ L 4.0-10.0 L (test code = 775) RED BLOOD CELL COUNT (BEAKER) 4.26 M/ L 4.00-5.00 (test code = 761) HEMOGLOBIN (BEAKER) (test code = 8.1 GM/DL 12.0-15.5 L 410) HEMATOCRIT (BEAKER) (test code = 28.7 % 36.0-46.0 L 411) MEAN CORPUSCULAR VOLUME (BEAKER) 67.4 fL 82.0-99.0 L (test code = 753) MEAN CORPUSCULAR HEMOGLOBIN 19.0 pg 27.0-33.0 L (BEAKER) (test code = 751) MEAN CORPUSCULAR HEMOGLOBIN CONC 28.2 GM/DL 32.0-36.0 L (BEAKER) (test code = 752) RED CELL DISTRIBUTION WIDTH 16.7 % 12.0-15.0 H (BEAKER) (test code = 412) PLATELET COUNT (BEAKER) (test 338 K/CU MM 150-430 code = 756) MEAN PLATELET VOLUME (BEAKER) 9.4 fL 6.0-11.5 (test code = 754) NUCLEATED RED BLOOD CELLS 0 /100 WBC 0-0 (BEAKER) (test code = 413) NEUTROPHILS RELATIVE PERCENT 48 % (BEAKER) (test code = 429) LYMPHOCYTES RELATIVE PERCENT 41 % (BEAKER) (test code = 430) MONOCYTES RELATIVE PERCENT 7 % (BEAKER) (test code = 431) EOSINOPHILS RELATIVE PERCENT 3 % (BEAKER) (test code = 432) BASOPHILS RELATIVE PERCENT 1 % (BEAKER) (test code = 437) NEUTROPHILS ABSOLUTE COUNT 1.78 K/ L 1.80-8.00 L (BEAKER) (test code = 670) LYMPHOCYTES ABSOLUTE COUNT 1.50 K/ L 1.48-4.50 (BEAKER) (test code = 414) MONOCYTES ABSOLUTE COUNT (BEAKER) 0.26 K/ L 0.00-1.30 (test code = 415) EOSINOPHILS ABSOLUTE COUNT 0.11 K/ L 0.00-0.50 (BEAKER) (test code = 416) BASOPHILS ABSOLUTE COUNT (BEAKER) 0.05 K/ L 0.00-0.20 (test code = 417) IMMATURE GRANULOCYTES-RELATIVE 0 % 0-0 PERCENT (BEAKER) (test code = 2801) Surgical pathology [id number] 16:10:25 Test Item Value Reference Range Interpretation Comments Case number (test code = [id number]) Surgical pathology See link below for report (test code = PDF Lab Report [id number]) Result status (test code This is Final Report = [id number]) for [id number] Franklin [id number] 18:23:05PropreethitNirali CRNA 07/22/2020 6:24 PMAirway Date/Time: 07/22/2020 6:08 PMPerformed by: Nirali Alonso CRNAAuthorized by: Nirali Alonso CRNA Location: ORUrgency: ElectiveDifficult Airway: No Anesthesiologist: Sarath Guzamn, MDResident/HAYLEY/AA: Nirali Alonso CRNAPerformed by:anesthesiologist and resident/HAYLEY/AAPreoxygenated with 100% O2: Yes C-spine Precautions Maintained Throughout: Yes Mask Ventilation: Easy maskFinal Airway Type: Endotracheal airwayFinal Endotracheal Airway: ETTCuffed: Yes Technique Used: Direct laryngoscopyDevices/Methods Used in Placement: Intubating styletInsertion Site: OralBlade Type: MillerLaryngoscope Blade/Videolaryngoscope Blade Size: 2ETT Size (mm): 7.0Cuff at minimum occlusion pressure: Yes Measured from: LipsETT to Lips (cm): 22Placement Verified by: CO2 detection, direct visualization and equal breath sounds Laryngoscopic view: Grade I - full view of glottisRapid Sequence Induction (RSI): Yes Number of Attempts at Approach: 1Hsekoujazmín FlorenciaelizabethUS [id number] 17:07:20Hm Interface, Radiology Results Incoming - 07/21/2020 5:10 PM CST EXAMINATION: US GALLBLADDERCLINICAL HISTORY: Abd pain unspecified, CholelithiasisCOMPARISON: To previous study from 07/05/2020FINDINGS:Gallbladder: Multiple gallstones arenoted within the gallbladder. There is no evidence of pericholecystic fluid. The patient was in painover the gallbladder.CBD: 3 mm , within normal limits.Portal vein: The portal vein demonstrates normal hepatopedal flow. The portal vein measures 9 mm.IMPRESSION:Cholelithiasis with possible cholecystitis.[id number] Jewish
[2020-11-29 10:29] LABS: Urine Blood Trace-intact (Negative); Urine Glucose Negative (Negative); Urine Protein Negative (Negative)
[2020-11-29] MEDS ORDERED: ONDANSETRON 4 MG/2 ML VIAL ONE ×3 (10:31→22:23)
[2020-11-29] MEDS ORDERED: NA CHLORIDE 0.9% 1,000 ML ONE (10:32)
[2020-11-29 10:37] LABS: Absolute Lymphocytes (CBC) 0.7 K/uL (0.7-4.9); Basophils % 0.9 % (0-1.3); Hematocrit 25.6 % (36.0-45.0); Lymphocytes % 10.6 % (15.3-44.8); RBC Red Blood Cell Count 4.17 M/uL (3.86-4.86)
[2020-11-29 10:46] LABS: Protime INR 1.03
[2020-11-29 10:51] LABS: Barbiturates NEGATIVE (NEGATIVE); Benzodiazepines POSITIVE (NEGATIVE); Cocaine NEGATIVE (NEGATIVE); METHAMPHETAM NEGATIVE (NEGATIVE); Methadone NEGATIVE (NEGATIVE); Opiates NEGATIVE (NEGATIVE); Phencyclidine NEGATIVE (NEGATIVE); THC Cannibis NEGATIVE (NEGATIVE)
[2020-11-29 10:52] LABS: Urine Bacteria 20-50 /HPF (<20); Urine RBC <5 /HPF (NONE SEEN)
[2020-11-29 10:52] LABS: ALT/SGPT 16 U/L (12-78); AST/SGOT 10 U/L (15-37); Albumin 3.3 g/dL (3.4-5.0); Alkaline Phosphatase 81 U/L (45-117); BUN Blood Urea Nitrogen 7 mg/dL (7-18); Bicarbonate 25 mmol/L (21-32); Bilirubin Direct < 0.1 mg/dL (0-0.2); Bilirubin Total 0.3 mg/dL (0.2-1.0); Glucose Level 105 mg/dL (74-106); Protein, Total 7.7 g/dL (6.4-8.2); Sodium Level 139 mmol/L (136-145); Troponin (Emerg Dept Use Only) < 0.02 ng/mL (0.0-0.045)
--- NOTE | 2020-11-29 11:32 | RAD REPORT ---
EXAM DESCRIPTION: CT - Chest For Pe Angio - 11/29/2020 11:15 am CLINICAL HISTORY: elevated d-dimer COMPARISON: Chest For Pe Angio dated 05/21/2020 TECHNIQUE: Dynamically enhanced 3 mm thick images of the chest were obtained during administration o f approximately 150mL Isovue 370 IV contrast. Coronal and oblique MIP reconstruction images were gene rated and reviewed. Exam utilizes a protocol to evaluate the pulmonary arterial tree. All CT scans are performed using dose optimization technique as appropriate and may include automated exposure control or mA/KV adjustment according to patient size. FINDINGS: No pulmonary emboli are identified. The aorta as imaged shows no acute or suspicious finding. No pericardial thickening or effusion. No infiltrate or mass in the lung parenchyma. No pleural effusion or pleural thickening. No mediastinal or hilar suspicious masses. No chest wall masses or abnormal axillary lymphadenopathy. IMPRESSION: No pulmonary emboli identified. No other significant or suspicious findings.
--- NOTE | 2020-11-29 11:41 | RAD REPORT ---
EXAM DESCRIPTION: CT - Abdomen Pelvis W Contrast - 11/29/2020 11:15 am CLINICAL HISTORY: ABD PAIN COMPARISON: Abdomen Pelvis W Contrast dated 05/30/2020; Chest For Pe Angio dated 11/29/2020 TECHNIQUE: Biphasic, helical CT imaging of the abdomen and pelvis was performed following 100 ml non -ionic IV contrast. No oral contrast administered. All CT scans are performed using dose optimization technique as appropriate and may include automated exposure control or mA/KV adjustment according to patient size. FINDINGS: No suspicious findings in the lung bases. The liver, spleen, and pancreas show no suspicious findings. Cholecystectomy clips are present. No bi liary tree dilatation. Symmetric renal function is seen with no hydronephrosis or suspicious renal mass. No pyelonephritis o r acute parenchymal process. No bladder abnormalities. No adrenal abnormalities. No uterine abnormali ty seen. There is a 3 centimeter left ovarian or left adnexal cyst. A small amount of free fluid is p resent adjacent to this cyst. No right ovary abnormality seen. No gastric dilatation gastric wall thickening seen. Small bowel loops are not dilated. There are few fluid-filled small bowel loops with minimally prominent bowel mejia of the distal ileum region. Mild rectal wall thickening is suspected. There appears to be some trace amount of edema adjacent to the r ectum. Provided history indicates appendectomy. However, a partially retrocecal appendix is identifie d. Acute appendicitis is not suspected. The appendix is not clearly different from the May 2020 c omparison. No free air or pneumatosis. No hernia, mass or bulky lymphadenopathy. No suspicious bony findings. IMPRESSION: No bowel obstruction, free air or surgically emergent finding identifiable. Mejia of the rectum appear prominent and patient could have a mild colitis or enteritis. A few promin ent distal small bowel loops are present that could indicate an enteritis as well. A 3 centimeter left ovarian cyst is present. The amount of fluid adjacent to the cyst could indicate ruptured or leaking cyst.
[2020-11-29 12:32] LABS: Anisocytosis 1+; Blood Morphology Comment NOTED (NOT SEEN); Hypochromasia 2+; Platelet Estimate ADEQ; White Blood Cell Scan OK (OK)
[2020-11-29] MEDS ORDERED: HYDROCORTISONE SUC 100 MG INJ ONE (14:10)
[2020-11-29] MEDS ORDERED: ACETAMINOPHEN 325 MG TABLET ONE (14:10)
[2020-11-29] MEDS ORDERED: NA CHLORIDE 0.9% 250 ML ONE (14:11)
[2020-11-29] MEDS ORDERED: MORPHINE 4 MG/ML SYR ONE ×2 (14:11→22:23)
[2020-11-29] MEDS ORDERED: DIPHENHYDRAMINE 50 MG/ML VIAL ONE (14:11)
--- NOTE | 2020-11-29 17:55 | EDPHYS ---
Physician Documentation [facility] Name: Cheyanne Lopes Age: 25 yrs Sex: Female : 1995 Arrival Date: 11/29/2020 Time: 09:42 Bed 15 Private MD: ED Physician Jonny Howell HPI: 11/29 10:05 This 25 yrs old Black Female presents to ER via EMS with complaints of Weakness, jmm Abdominal pain. 10:05 Onset: The symptoms/episode began/occurred gradually. The patient has experienced a jmm previous episode. This is a 25 year old female with a history of anemia, htn, depression that presents to the ED with complaints of generalized fatigue, lower abdominal pain for 3 days. Patient states she has had this pain since her hysterectomy. Denies vomiting, diarrhea but states she feels dehydrated. . Historical: - Allergies: 09:59 No Known Allergies; kl - Home Meds: 09:59 Bentyl 10 mg Oral cap [Active]; diclofenac oral oral [Active]; kl Hydrocodone-Acetaminophen Oral [Active]; Ibuprofen Oral [Active]; Tylenol #3 Oral [Active]; tramadol Oral [Active]; - PMHx: 09:59 Anemia; High Blood Pressure; Depression; kl - PSHx: 09:59 Cholecystectomy; Appendectomy; Hysterectomy; kl ROS: 10:05 Constitutional: Positive for body aches, fatigue. jmm 10:05 Abdomen/GI: Positive for abdominal pain. 10:05 Neuro: Positive for weakness. 10:05 All other systems are negative. Exam: 10:05 Constitutional: This is a well developed, well nourished patient who is awake, alert, jmm and in no acute distress. Head/Face: atraumatic. Eyes: EOMI, no conjunctival erythema appreciated ENT: Moist Mucus Membranes Neck: Trachea midline, Supple Chest/axilla: Normal chest wall appearance and motion. Cardiovascular: Regular rate and rhythm. No edema appreciated Respiratory: Normal respirations, no respiratory distress appreciated Abdomen/GI: Non distended, soft Back: Normal ROM Skin: General appearance color normal MS/ Extremity: Moves all extremities, no obvious deformities appreciated, no edema noted to the lower extremities Neuro: Awake and alert, normal gait Psych: Behavior is normal, Mood is normal, Patient is cooperative and pleasant Vital Signs: 09:52 BP 115 / 67; Pulse 106; Resp 18; Pulse Ox 99% ; kl 09:52 Pain 10/10; kl 10:04 BP 117 / 77 Standing; Pulse 117; hb 12:00 BP 121 / 77; Pulse 87; Resp 20; Pulse Ox 100% on R/A; vg1 13:00 BP 108 / 63; Pulse 86; Resp 18; Pulse Ox 100% on R/A; vg1 14:00 BP 125 / 81; Pulse 68; Resp 20; Pulse Ox 100% on R/A; vg1 15:00 BP 123 / 74; Pulse 93; Resp 18; Pulse Ox 100% on R/A; vg1 15:30 BP 103 / 64; Pulse 82; Resp 20; Pulse Ox 100% on R/A; vg1 16:00 BP 116 / 66; Pulse 75; Resp 16; Temp 98.6(TE); Pulse Ox 100% ; vg1 16:45 BP 112 / 64; Pulse 88; Resp 20; Temp 98.2; Pulse Ox 100% on R/A; vg1 18:30 BP 122 / 58; Pulse 90; Resp 16; Pulse Ox 100% on R/A; vg1 19:30 BP 113 / 75; Pulse 95; Resp 16; Pulse Ox 100% on R/A; vg1 20:30 BP 116 / 63; Pulse 104; Resp 20; Pulse Ox 100% on R/A; vg1 21:09 BP 110 / 73; Pulse 90; Resp 16; Temp 98.2; Pulse Ox 100% ; vg1 MDM: 09:47 Patient medically screened. [facility] 17:51 Data reviewed: vital signs, nurses notes. Counseling: I had a detailed discussion with [facility] the patient and/or guardian regarding: the historical points, exam findings, and any diagnostic results supporting the discharge/admit diagnosis, lab results, radiology results, the need to transfer to another facility. ED course: I discussed the patient with Beatriz Tapia whom accepted the patient for transfer. . 11/29 09:46 Order name: Acetaminophen [facility] 11/29 09:46 Order name: Basic Metabolic Panel [facility] 11/29 09:46 Order name: CBC with Diff [facility] 11/29 09:46 Order name: ETOH Level; Complete Time: 10:57 [facility] 11/29 09:46 Order name: Hepatic Function; Complete Time: 10:57 [facility] 11/29 09:46 Order name: PT-INR; Complete Time: 10:57 [facility] 11/29 09:46 Order name: Ptt, Activated; Complete Time: 10:57 [facility] 11/29 09:46 Order name: Salicylate; Complete Time: 11:38 [facility] 11/29 09:46 Order name: Urine Drug Screen; Complete Time: 10:57 [facility] 11/29 09:46 Order name: Troponin (emerg Dept Use Only); Complete Time: 10:57 [facility] 11/29 09:47 Order name: Acetaminophen Level; Complete Time: 10:57 [facility] 11/29 09:47 Order name: Basic Metabolic Panel; Complete Time: 10:57 [facility] 11/29 09:47 Order name: CBC with Automated Diff; Complete Time: 12:50 [facility] 11/29 09:47 Order name: D-Dimer; Complete Time: 10:57 [facility] 11/29 10:29 Order name: Urine Dipstick-Ancillary; Complete Time: 10:30 [facility] 11/29 10:29 Order name: Urine Microscopic Only; Complete Time: 10:57 11/29 10:42 Order name: Type And Screen [facility] 11/29 10:42 Order name: Type and Screen [facility] 11/29 10:53 Order name: Urine Culture [facility] 11/29 10:54 Order name: CBC Smear Scan; Complete Time: 12:50 [facility] 11/29 10:54 Order name: CT Chest For PE Angio; Complete Time: 11:38 [facility] 11/29 10:54 Order name: CT Abd/Pelvis - IV Contrast Only; Complete Time: 11:42 [facility] 11/29 12:45 Order name: Packed RBC Leukored [facility] 11/29 20:06 Order name: SARS-COV-2 RT PCR; Complete Time: 20:10 [facility] 11/29 09:46 Order name: EKG; Complete Time: 09:47 [facility] 11/29 09:46 Order name: EKG - Nurse/Tech; Complete Time: 11:07 [facility] 11/29 09:46 Order name: IV Saline Lock; Complete Time: 10:31 [facility] 11/29 09:46 Order name: Labs collected and sent; Complete Time: 10:31 [facility] 11/29 09:46 Order name: Suicide Screening ([place]); Complete Time: 10:31 [facility] 11/29 09:46 Order name: Urine Dipstick-Ancillary (obtain specimen); Complete Time: 10:31 [facility] Administered Medications: 10:12 Drug: NS 0.9% 1000 ml Route: IV; Rate: 1 bolus; Site: right antecubital; hb 12:35 Follow up: IV Status: Completed infusion; IV Intake: 1000ml vg1 10:12 Drug: Zofran (Ondansetron) 4 mg Route: IVP; Site: right antecubital; hb 12:35 Follow up: Response: No adverse reaction; Nausea is decreased vg1 13:55 Drug: morphine 4 mg Route: IVP; Site: right antecubital; vg1 18:19 Follow up: Response: No adverse reaction; Pain is decreased vg1 13:55 Drug: Zofran (Ondansetron) 4 mg Route: IVP; Site: right antecubital; vg1 18:19 Follow up: Response: No adverse reaction; Nausea is decreased vg1 18:36 Drug: Flagyl (metroNIDAZOLE) 500 mg Volume: 100 ml; Route: IVPB; Rate: 200 ml/hr; vg1 Infused Over: 30 mins; Site: right antecubital; 19:08 Follow up: IV Status: Completed infusion; IV Intake: 100ml vg1 19:08 Drug: Zosyn 3.375 grams Route: IVPB; Infused Over: 60 mins; Site: right antecubital; vg1 20:00 Follow up: IV Status: Completed infusion; IV Intake: 100ml vg1 22:09 Drug: morphine 4 mg Route: IVP; Site: right antecubital; vg1 22:09 Follow up: Response: Medication administered at discharge. vg1 22:09 Drug: Zofran (Ondansetron) 4 mg Route: IVP; Site: right antecubital; vg1 22:09 Follow up: Response: Medication administered at discharge. vg1 Disposition: 11/30 09:38 Co-signature as Attending Physician, Jonny Howell MD. rn Disposition: 11/29/20 17:54 Transfer ordered to Other Acute Care Facility. Diagnosis are Anemia, unspecified, Post Surgical Infection. - Reason for transfer: Higher level of care. - Accepting physician is Beatriz Armstrong. - Condition is Stable. - Problem is new. - Symptoms have improved. Signatures: Dispatcher [employer] Missy Munizly, RN RN García Talley PA PA [facility] Jonny Howell MD MD rn Baxter, Heather, RN RN hb Garcia, Victoria, RN RN vg1 Corrections: (The following items were deleted from the chart) 11/29 12:38 11:50 PACKED RBC LEUKORED -1+BB.LAB.BRZ ordered. EDMS EDMS 12:38 11:50 ABO/RH typing ordered. EDMS EDMS 12:38 11:50 Antibody Screen ordered. EDMS EDMS 19:07 18:49 CORONAVIRUS+MR.LAB.BRZ ordered. EDMS EDMS 22:10 17:54 11/29/2020 17:54 Transfer ordered to Other Acute Care Facility. Diagnosis is vg1 Anemia, unspecified; Post Surgical Infection. Reason for transfer: Higher level of care. Accepting physician is Beatriz Armstrong. Condition is Stable. Problem is new. Symptoms have improved. [facility]
--- NOTE | 2020-11-29 17:55 | ER ---
Nurse's Notes [facility] Name: Cheyanne Lopes Age: 25 yrs Sex: Female : 1995 Arrival Date: 11/29/2020 Time: 09:42 Bed 15 Private MD: Diagnosis: Anemia, unspecified;Post Surgical Infection Presentation: 11/29 09:52 Chief complaint: Patient states: generalized weakness lethargy and pain x 2 days. Coronavirus screen: Client denies travel out of the [place] in the last 14 days. fatigue, muscle pain, Ebola Screen: Patient negative for fever greater than or equal to 101.5 degrees Fahrenheit, and additional compatible Ebola Virus Disease symptoms. Initial Sepsis Screen: Does the patient meet any 2 criteria? No. Patient's initial sepsis screen is negative. Risk Assessment: Do you want to hurt yourself or someone else? Patient reports no desire to harm self or others. Onset of symptoms was November 27, 2020. 09:52 Method Of Arrival: EMS: [facility] [place] 09:52 Acuity: GERI 3 Triage Assessment: 10:00 General: Appears in no apparent distress. slender, well groomed, well developed, kl Behavior is flat, quiet. Pain: Complains of pain in generalized. Historical: - Allergies: :59 No Known Allergies; kl - Home Meds: :59 Bentyl 10 mg Oral cap [Active]; diclofenac oral oral [Active]; Hydrocodone-Acetaminophen Oral [Active]; Ibuprofen Oral [Active]; Tylenol #3 Oral [Active]; tramadol Oral [Active]; - PMHx: 09:59 Anemia; High Blood Pressure; Depression; kl - PSHx: 09:59 Cholecystectomy; Appendectomy; Hysterectomy; Screenin:05 Abuse screen: Denies threats or abuse. Nutritional screening: No deficits noted. vg1 Tuberculosis screening: No symptoms or risk factors identified. Fall Risk No fall in past 12 months (0 pts). No secondary diagnosis (0 pts). IV access (20 points). Ambulatory Aid- None/Bed Rest/Nurse Assist (0 pts). Gait- Normal/Bed Rest/Wheelchair (0 pts) Mental Status- Oriented to own ability (0 pts). Total Singh Fall Scale indicates No Risk (0-24 pts). Assessment: 11:00 General: Appears in no apparent distress. uncomfortable, Behavior is calm, cooperative. vg1 Pain: Complains of pain in right lower quadrant and left lower quadrant Pain currently is 10 out of 10 on a pain scale. Quality of pain is described as crampy. Neuro: Level of Consciousness is awake, alert, obeys commands, Oriented to person, place, time. Cardiovascular: Patient's skin is warm and dry. Respiratory: Airway is patent Respiratory effort is even, unlabored. GI: Reports nausea. : No signs and/or symptoms were reported regarding the genitourinary system. EENT: No signs and/or symptoms were reported regarding the EENT system. Derm: Skin is intact, is healthy with good turgor. Musculoskeletal: Circulation, motion, and sensation intact. 12:42 Reassessment: Patient appears in no apparent distress at this time. No changes from vg1 previously documented assessment. Patient and/or family updated on plan of care and expected duration. Pain level reassessed. Patient is alert, oriented x 3, equal unlabored respirations, skin warm/dry/pink. 13:41 Reassessment: Patient appears in no apparent distress at this time. No changes from vg1 previously documented assessment. Patient and/or family updated on plan of care and expected duration. Pain level reassessed. Patient is alert, oriented x 3, equal unlabored respirations, skin warm/dry/pink. Pt rates pain 10/10. Provider notified. 14:29 Reassessment: Patient appears in no apparent distress at this time. No changes from vg1 previously documented assessment. Patient and/or family updated on plan of care and expected duration. Pain level reassessed. Patient is alert, oriented x 3, equal unlabored respirations, skin warm/dry/pink. Blood transfusion began at 1410. See transfusion paper chart. 16:01 Reassessment: Patient appears in no apparent distress at this time. No changes from vg1 previously documented assessment. Patient and/or family updated on plan of care and expected duration. Pain level reassessed. Patient is alert, oriented x 3, equal unlabored respirations, skin warm/dry/pink. Patient states feeling better. 16:49 Reassessment: Patient appears in no apparent distress at this time. No changes from vg1 previously documented assessment. Patient and/or family updated on plan of care and expected duration. Pain level reassessed. Patient is alert, oriented x 3, equal unlabored respirations, skin warm/dry/pink. Transfusion complete. See transfusion paper chart Patient states feeling better. 18:54 Reassessment: Patient appears in no apparent distress at this time. No changes from vg1 previously documented assessment. Patient and/or family updated on plan of care and expected duration. Pain level reassessed. Patient is alert, oriented x 3, equal unlabored respirations, skin warm/dry/pink. Patient states feeling better. 20:30 Reassessment: Patient appears in no apparent distress at this time. Patient and/or vg1 family updated on plan of care and expected duration. Pain level reassessed. Patient is alert, oriented x 3, equal unlabored respirations, skin warm/dry/pink. 21:13 Reassessment: Report given to MINE Davis at [facility]. vg1 22:07 Reassessment: Received VO from Dr Perdue to administer Zofran 4mg IVP x1 and Morphine vg1 4 mg IVP x1. Vital Signs: 09:52 BP 115 / 67; Pulse 106; Resp 18; Pulse Ox 99% ; kl 09:52 Pain 10/10; kl 10:04 BP 117 / 77 Standing; Pulse 117; hb 12:00 BP 121 / 77; Pulse 87; Resp 20; Pulse Ox 100% on R/A; vg1 13:00 BP 108 / 63; Pulse 86; Resp 18; Pulse Ox 100% on R/A; vg1 14:00 BP 125 / 81; Pulse 68; Resp 20; Pulse Ox 100% on R/A; vg1 15:00 BP 123 / 74; Pulse 93; Resp 18; Pulse Ox 100% on R/A; vg1 15:30 BP 103 / 64; Pulse 82; Resp 20; Pulse Ox 100% on R/A; vg1 16:00 BP 116 / 66; Pulse 75; Resp 16; Temp 98.6(TE); Pulse Ox 100% ; vg1 16:45 BP 112 / 64; Pulse 88; Resp 20; Temp 98.2; Pulse Ox 100% on R/A; vg1 18:30 BP 122 / 58; Pulse 90; Resp 16; Pulse Ox 100% on R/A; vg1 19:30 BP 113 / 75; Pulse 95; Resp 16; Pulse Ox 100% on R/A; vg1 20:30 BP 116 / 63; Pulse 104; Resp 20; Pulse Ox 100% on R/A; vg1 21:09 BP 110 / 73; Pulse 90; Resp 16; Temp 98.2; Pulse Ox 100% ; vg1 ED Course: 09:42 Patient arrived in ED. bd 09:45 García Chamorro PA is PHCP. m 09:45 Jonny Howell MD is Attending Physician. [facility] 09:55 Triage completed. kl 10:04 Arm band placed on. hb 10:12 Inserted saline lock: 20 gauge in right antecubital area, using aseptic technique. hb Blood collected. 10:56 Merline Mclaughlin, RN is Primary Nurse. vg1 11:05 Patient has correct armband on for positive identification. Placed in gown. Bed in low vg1 position. Call light in reach. Side rails up X 1. Adult w/ patient. 11:[address] via wheelchair. vg1 11:15 CT Chest For PE Angio In Process Unspecified. EDMS 11:15 CT Abd/Pelvis - IV Contrast Only In Process Unspecified. EDMS 18:54 COVID swab sent to lab. vg1 19:26 Primary Nurse role handed off by Merline Mcalughlin, RN mw2 19:52 Merline Mclaughlin, RN is Primary Nurse. vg1 20:[address] [facility] to update her on the patient's covid results. mw2 20:12 administrative approval given by Jewell Jacinto/ patient has been accepted the [address] A41/ Dr. Armstrong accepted the patient in transfer/ report to be called to [phone]. 21:14 No provider procedures requiring assistance completed. IV is intact, with good blood vg1 return, Flushed right antecubital saline lock with 5 ml normal saline Patient transferred, IV remains in place. Administered Medications: 10:12 Drug: NS 0.9% 1000 ml Route: IV; Rate: 1 bolus; Site: right antecubital; hb 12:35 Follow up: IV Status: Completed infusion; IV Intake: 1000ml vg1 10:12 Drug: Zofran (Ondansetron) 4 mg Route: IVP; Site: right antecubital; hb 12:35 Follow up: Response: No adverse reaction; Nausea is decreased vg1 13:55 Drug: morphine 4 mg Route: IVP; Site: right antecubital; vg1 18:19 Follow up: Response: No adverse reaction; Pain is decreased vg1 13:55 Drug: Zofran (Ondansetron) 4 mg Route: IVP; Site: right antecubital; vg1 18:19 Follow up: Response: No adverse reaction; Nausea is decreased vg1 18:36 Drug: Flagyl (metroNIDAZOLE) 500 mg Volume: 100 ml; Route: IVPB; Rate: 200 ml/hr; vg1 Infused Over: 30 mins; Site: right antecubital; 19:08 Follow up: IV Status: Completed infusion; IV Intake: 100ml vg1 19:08 Drug: Zosyn 3.375 grams Route: IVPB; Infused Over: 60 mins; Site: right antecubital; vg1 20:00 Follow up: IV Status: Completed infusion; IV Intake: 100ml vg1 22:09 Drug: morphine 4 mg Route: IVP; Site: right antecubital; vg1 22:09 Follow up: Response: Medication administered at discharge. vg1 22:09 Drug: Zofran (Ondansetron) 4 mg Route: IVP; Site: right antecubital; vg1 22:09 Follow up: Response: Medication administered at discharge. vg1 Intake: 12:35 IV: 1000ml; Total: 1000ml. vg1 19:08 IV: 100ml; Total: 1100ml. vg1 20:00 IV: 100ml; Total: 1200ml. vg1 Outcome: 17:54 ER care complete, transfer ordered by . alayna 21:15 Transferred by ground EMS to [facility]. vg1 21:15 Condition: stable 21:15 Instructed on the need for transfer. 22:10 Patient left the ED. vg1 Signatures: Dispatcher [employer] EDMS Shania Kearney Kimberly, RN RN kl Mickail, Joel, PA PA jmm Baxter, Heather, RN RN hb [place], [facility] Merline Mclaughlin RN RN vg1 Corrections: (The following items were deleted from the chart) 16:51 14:29 Reassessment: Patient appears in no apparent distress at this time. No changes vg1 from previously documented assessment. Patient and/or family updated on plan of care and expected duration. Pain level reassessed. Patient is alert, oriented x 3, equal unlabored respirations, skin warm/dry/pink. Blood transfusion began at 1410 vg1
[2020-11-29] MEDS ORDERED: PIPER/TAZO/NS 3.375gm 3.375 GM/100 ML BAG ONE (18:46)
[2020-11-29] MEDS ORDERED: METRONIDAZOLE 500mg IVPB 500 MG/100 ML BAG IV ONE (18:46)
[2020-11-29 22:22] VITALS: O2SAT 100
[2020-11-29 22:30] VITALS: TEMP 98.2
[2020-11-29 22:35] VITALS: BP 110/73
--- NOTE | 2020-11-30 16:12 | EKG ---
Test Date: 2020-11-29 Test Time: 11:02:42 [employer] Operator Head: HB MEASUREMENT RESULTS: Intervals: Rate: 85 [place]: 164 QRSD: 74 QT: 376 QTc: 447 [place]: P: 66 [place]: 164 QRS: 62 T: 48 INTERPRETIVE STATEMENTS: Normal sinus rhythm Normal ECG Compared to ECG 05/23/2020 22:28:49 No significant changes Electronically Signed On 11-30-20 16:07:22 CDT by Mirza Aguirre
== END 2020-11-29 22:10 ==
LOC: ER 09:34
PROC: 30233N1 Transfusion of Nonautologous Red Blood Cells into Peripheral Vein, Percutaneous Approach (ICD-10-PCS; principal; 2020-11-29)
DX: U07.1 COVID-19 (principal); D64.9 Anemia, unspecified; T81.40XA Infection following a procedure, unspecified, initial encounter; F32.9 Major depressive disorder, single episode, unspecified
CPT/HCPCS: 36415; 71275; 74177; 80048; 80076; 80307; 80320; 80329; 81003; 81015; 84484; 85025; 85379; 85610; 85730; 86850; 86900; 86901; 87086; 87088; 93005; 96361; 96365; 96367; 96375; 99285; J1200; J1720; J2405; J2543; J7030; J7050; P9016; Q9967; U0003

== ENCOUNTER 2021-01-30 15:12 | Emergency (ER) | payer OTHER ==
--- OUTSIDE RECORDS SUMMARY | 2021-01-30 15:17 | XMS REPORT | Continuity of Care Document ---
:1995 Author Organization [facility] t Address [address] [place] [id number] Care Team Providers Name Role Phone System, Not In Primary Care Physician Unavailable River Martinez MD. Attending Clinician Shanta MATRINEZ Attending Clinician Unavailable Hiwot RAVI Attending Clinician HIWOT Attending Clinician Unavailable Bushra RAVI Attending Clinician Ernie Palencia MD Attending Clinician [phone] Agusto Ruffin MD Attending Clinician Daisy Oliva MD Attending Clinician Marilu Fiore MD Attending Clinician Gail Marcum MD Attending Clinician Deamrcus Smalls MD Attending Clinician Mj RAVI Attending Clinician Sheikh BREONNA Attending Clinician Delano Guzman MD Attending Clinician Adiel HARDY Attending Clinician Otto RAVI Attending Clinician MD MJ Attending Clinician Unavailable Chelsey Smalls Attending Clinician Unavailable Joel Barton MD Attending Clinician Anabela RAVI Attending Clinician Michael Campos NP Attending Clinician Doctor Unassigned, Name Attending Clinician Unavailable Eli Rodríguez Attending Clinician Shanta MARTINEZ Admitting Clinician Unavailable Admitting Clinician Unavailable MD MJ Admitting Clinician Unavailable Payers Payer Name Policy Type Policy Effective Date Expiration Date Sour ce Number AMBETTERAMBETTER [id number] [address] [facility] [id number] 00:00:00 - M claudiaical 08/2020-Present Center COMMERCIAL MISCMISC [id number] 2020 [place] [id number] 00:00:00 Met eller -PresentComm ercial MISC EXCHANGEAMBETTER [id number] 2020 [place] FROM [place] 00:00:00 Church [id number] 2020-PresentExcha nge Problems Condition Condition Condition Status Onset Resolution Last Treating Co mments Source Name Details Category Date Date Treatment Clinician Date Anemia Anemia Disease [facility] Constipati Constipati Disease Active [facility]30 [facility] Center Vaginal Vaginal Disease Active [facility] cuff cuff 11-30 [facility] - cellulitis cellulitis 00:00: Mi dical 00 Center Syncope Syncope Disease Active [facility] Excessive Excessive Disease Active [facility] - frequent frequent 00:00: Medica l menstruati menstruati 00 Ce nter on on Cholecysti Cholecysti Disease Active 2019- [place] tis tis 2-12 Methodi 00:00: st 00 Acute Acute Disease Active 2019-08 [facility] cholecysti cholecysti 2-10 Me thodi tis tis 00:00: st 00 Symptomati Symptomati Disease Active 2019-08 [place] c c 2-01 [facility] cholelithi cholelithi 00:00: st asis asis 00 Allergies, Adverse Reactions, Alerts This patient has no known allergies or adverse reactions. Social History Social Habit Start Date Stop Date Quantity Comments Source Sex Assigned At [facility] Tobacco use and 2020-10-22 2020-10-22 Never used [facility] Barbosa ethodist exposure 00:00:00 00:00:00 Alcohol intake 2020-10-22 2020-10-22 Current drinker [place] [facility] 00:00:00 00:00:00 of alcohol (finding) History [facility] 2020-08-16 2020-08-16 3 [place] [facility] Alcohol Frequency 00:00:00 00:00:[address] [facility] 2020-08-16 2020-08-16 1 [place] [facility] Alcohol Std Drinks 00:00:00 00:00:[address] [facility] 2020-08-16 2020-08-16 1 [place] [facility] Alcohol Binge 00:00:00 00:00:00 Smoking Status Start Date Stop Date Source Never smoker [place] [facility] t Medications Ordered Filled Start Stop Current Ordering Indication Dosage Frequency Signature Comments Components Source Medication Medication Date Date Medication? Clinician (SIG) Name Name multivitami Yes 1{capsu QD Take [address] n capsule 4-21 le} capsule by Luke s - 16:36: mouth Medical 50 daily. Center ascorbic Yes QD Take by [facility] acid/multiv 4-21 mouth [facility] - it-min 16:36: daily . Medical (EMERGEN-C 50 Center IMMUNE PLUS ORAL) ferrous Yes 325mg Take 325 [facility] t sulfate 325 4-21 mg by [facility] - (65 FE) MG 16:36: mouth Medica l tablet 50 daily with Center breakfast. docusate 2020- No 100mg Q.5D Take 1 [facility] t sodium 4-12 04-22 capsule [facility] - (COLACE) 00:00: 23:59 (100 mg Medic al 100 MG 00 :00 total) by Center capsule mouth 2 (two) times daily for 10 days. magnesium 2020- No 296mL Take [address] citrate 4-12 04-12 mLs by [facility]ukes - solution 00:00: 23:59 mouth once Me dical 00 :00 for 1 Center dose. ketorolac 2020- No 10mg Take 10 mg [...] days. Max Daily Amount: 6 tablets ibuprofen No 600mg Take [address] (ADVIL,MOTR 11-09-10 tablet [facility] - IN) 600 MG 00:00: 23:59 (600 mg Med ical tablet 00 :00 total) by Center mouth every 6 (six) hours as needed for Pain for up to 10 days. amoxicillin No 1{tbl} Q.5D Take [address] -clavulanat 11-09-10 tablet by [place] valerio 00:00: 23:59 mouth 2 Medical (AUGMENTIN) 00 :00 (two) Center 875-125 mg times per tablet daily for 10 days. doxycycline 2020- No 100mg Q.5D Take [address] (VIBRAMYCIN 3-17 03-17 mg by [facility] - ) 100 MG 11:18: 00:00 mouth 2 Medic al capsule 54 :00 (two) Center times daily. doxycycline 2019-08 No 100mg Q.5D Take 1 [place] (VIBRAMYCIN 2-30 -06 capsule Meth violet ) 100 MG 00:00: 23:59 ([address] capsule 00 :00 total) by mouth 2 (two) times a day for 7 days. ondansetron 2019-08 No 4mg Q8H Take 1 Madeleine ston ODT (Zofran 2-30 -04 tablet (4 Me thodi ODT) 4 MG 00:00: 23:59 mg total) st disintegrat 00 :00 by mouth ing tablet every 8 (eight) hours as needed for nausea for up to 5 days. acetaminoph 2020-1 2021- No acute pain 1{tbl} Q6H Take 1-2 [facility] en-codeine 2-30 - tablets by Me gutierres (TYLENOL 00:00: 23:59 [...] hours as needed for moderate pain. acetaminoph 2019-08- No acute pain 1{tbl} Q4H Take 1 [facility] en-codeine 2-12 -12 tablet by Met adame (TYLENOL 12:05: 00:00 [...] 650mg Q6H Take 2 [place] en 2-12 08-22 tablets Methodi (TYLENOL) 00:00: 23:59 ([address] 325 MG 00 :00 total) by tablet mouth every 6 (six) hours as needed for mild pain or fever for up to 30 days. polyethylen 2019-08- No 17g Q24H Take 17 g Reid e glycol -08-22 by mouth Method i (MIRALAX) 00:00: 23:[address] 17 gram 00 :00 needed for packet constipati on for up to 30 days. HYDROcodone 2019-08- No acute pain 1{tbl} Q8H Take 1 [facility] -[facility]op 2-12 [facility] ([facility] 00:00: 23:[address] 5-325 mg 00 :00 every 8 per tablet (eight) hours as needed for severe pain for up to 10 days .acute pain. Max Daily Amount: 3 tablets acetaminoph 2019-08- No acute pain 1{tbl} Q6H Take 1 [facility] en-codeine 2-12 12-12 tablet by Met adame (TYLENOL 00:00: 00:[address] WITH 00 :00 every 6 CODEINE #3) (six) 300-30 mg hours as per tablet needed for severe pain for up to 10 days .acute pain. acetaminoph 2019-08- No acute pain 1{tbl} Q6H Take 1-2 [facility] en-codeine -07-10 tablets by Mi nenita (TYLENOL 00:00: 23:[address] WITH 00 :00 every 6 CODEINE #3) (six) 300-30 mg hours as per tablet needed for moderate pain for up to 5 days .acute pain. ondansetron 2019-08 No 4mg Q8H Take 1 [facility] ston ODT (Zofran 09-04 tablet (4 [facility] ODT) 4 MG 00:00: 23:59 mg total) st disintegrat 00 :00 by mouth ing tablet every 8 (eight) hours as needed for nausea for up to 5 days. Vital Signs Vital Name Observation Time Observation Value Comments Source Systolic blood 2020-11-30 12:00:00 141 mm[Hg] [facility] Diastolic blood 2020-11-30 12:00:00 72 mm[Hg] [facility] S [facility] Heart rate 2020-11-30 12:00:00 90 /min [facility] Body temperature 2020-11-30 12:00:00 36.67 Sheree [facility] Respiratory rate 2020-11-30 12:00:00 18 /min [facility] Oxygen saturation in 2020-11-30 12:00:00 100 /min [facility] Arterial blood by Medical Ce nter Pulse oximetry Body height 2020-11-29 23:55:00 167.6 cm [facility] Body weight 2020-11-29 23:55:00 64.864 kg [facility] BMI 2020-11-29 23:55:00 23.08 kg/m2 [facility] Systolic blood 2020-10-22 20:01:58 111 mm[Hg] [place] [facility] pressure Diastolic blood 2020-10-22 20:01:58 62 mm[Hg] [place] [facility] pressure Heart rate 2020-10-22 20:01:58 80 /min [facility] Body temperature 2020-10-22 20:01:58 37.83 Sheree [place] [facility] Respiratory rate 2020-10-22 20:01:58 16 /min [place] [facility] Oxygen saturation in 2020-10-22 20:01:58 97 /min [place] [facility] Arterial blood by Pulse oximetry Body height 2020-10-22 17:02:00 167.6 cm [place] [facility] Body weight 2020-10-22 17:02:00 71.668 kg [place] [facility] BMI 2020-10-22 17:02:00 25.50 kg/m2 [place] [facility] Procedures Procedure Date / Time Performing Clinician Source Performed CBC W/PLT COUNT & AUTO 2020-11-30 01:26:00 Beatriz Martinez [facility] COMPREHENSIVE METABOLIC 2020-11-30 01:26:00 Beatriz Martinez [facility] REPORT OF PROCEDURE - 2020-11-29 00:00:00 ProviderNate [facility] - ENDOSCOPY SCAN Scanning [facility] CT ABDOMEN/PELVIS WITH IV 2020-11-21 18:53:[address] [facility] CONTRAST [facility] CBC W/PLT COUNT & AUTO 2020-11-21 18:06:[address] [facility] DIFFERENTIAL [facility] COMPREHENSIVE METABOLIC 2020-11-21 18:06:[address] [facility] PANEL [facility] LIPASE 2020-11-21 18:06:00 Carissa De Leon [facility] URINALYSIS W/ MICROSCOPIC 2020-11-21 17:50:00 Neel Alphonso, Li nda [facility] XR CHEST 1 VIEW 2020-11-21 16:34:00 Neel WernerCarissa [facility] - PORTABLE/BEDSIDE [facility] SARS-COV2/INFLUENZA/RSV 2020-11-08 19:38:00 Beatriz Martinez [facility] RT-PCR [facility] TISSUE EXAM 2020-11-08 16:08:00 Beatriz Martinez [facility] ROBOTIC LAPAROSCOPY,TOTAL 2020-11-08 14:15:[address] [facility] HYSTERECTOMY/ BILATERAL [facility] SALPINGECTOMY SINGLE INCISION (SILS) SCREEN, URINE 2020-11-08 13:08:00 Tu, Franca [facility] CBC W/PLT COUNT & AUTO 2020-11-03 14:24:00 Tu, Franca [facility] BASIC METABOLIC PANEL (7) 2020-11-03 14:24:00 Tu, Franca [place] [facility] TYPE AND SCREEN, 2020-11-03 14:24:00 Tu, Franca [place] [facility] s [facility] CT ABDOMEN PELVIS W 2020-10-22 18:50:04 Trevor [facility] CONTRAST XR CHEST 1 VW PORTABLE 2020-10-22 18:08:54 Trevor Delatorre URINALYSIS SCREEN AND 2020-10-22 17:25:00 Trevor Delatorre MICROSCOPY, WITH REFLEX TO CULTURE RESPIRATORY PATHOGEN 2020-10-22 17:22:00 Trevor Delatorre PANEL WITH COVID-19 HC COMPLETE BLD COUNT 2020-10-22 17:20:00 RayTrevor W/AUTO DIFF COMPREHENSIVE METABOLIC 2020-10-22 17:20:00 Trevor Delatorre PANEL LACTIC ACID LEVEL, SEPSIS 2020-10-22 17:20:00 RayTrevor - NOW AND REPEAT 2X EVERY 3 HOURS HCG QUALITATIVE, SERUM 2020-10-22 17:20:00 Ray, Trevor [place] [facility] [place] [facility] SCREEN LIPASE LEVEL 2020-10-22 17:20:00 Trevor Delatorre ethodist ESTIMATED GFR 2020-10-22 17:20:00 Trevor Delatorre [facility]ist URINE CULTURE 2020-10-22 17:09:00 Trevor Delatorre [place] [facility] [facility]ist TISSUE EXAM 2020-08-23 08:08:00 Beatriz Martinez [facility] HYSTEROSCOPY,ENDOMETRIAL 2020-08-23 07:39:[address] [facility] BIOPSY/ POLYPECTOMY [facility] er TYPE AND SCREEN, 2020-08-23 06:10:00 Beatriz Martinez [facility] SCREEN, URINE 2020-08-23 05:50:00 Beatriz Martinez [facility] REPORT OF PROCEDURE - 2020-08-23 00:00:00 Provider, Nate [facility] ENDOSCOPY SCAN Scanning [facility] ECG 12-LEAD 2020-08-19 10:49:57 Unknown, Hl7 Doctor [facility] CBC W/PLT COUNT & AUTO 2020-08-19 10:31:00 Beatriz Martinez [facility] SARS-COV2/RT-PCR ([facility] & 2020-08-19 10:31:00 Beatriz Martinez [facility] - REF LABS) [facility] BASIC METABOLIC PANEL (7) 2020-08-19 10:31:00 Andrew Cartagena [facility] TYPE AND SCREEN, 2020-08-19 10:31:00 Beatriz Martinez [facility] CT ABDOMEN PELVIS W 2020-08-10 18:20:34 Antwan [facility] CONTRAST HC COMPLETE BLD COUNT 2020-08-10 17:10:00 Antwan [facility]ino [facility] W/AUTO DIFF COMPREHENSIVE METABOLIC 2020-08-10 17:10:00 Antwan Lino [facility] PANEL LACTIC ACID LEVEL, SEPSIS 2020-08-10 17:10:00 [...] Abilio Menjivar [place] AN ELECTIVE 2020-07-22 18:23:05 GavinNirali ENDOTRACHEAL AIRWAY CHOLECYSTECTOMY, 2020-07-22 18:02:00 Abilio Menjivar LAPAROSCOPIC ABO AND RH CONFIRMATION 2020-07-22 16:39:00 Carter Bunch [facility] TYPE AND SCREEN 2020-07-22 13:36:00 Carter Bunch SURGICAL PATHOLOGY 2020-07-22 08:03:00 Carter Bunch REQUEST LACTIC ACID LEVEL, SEPSIS 2020-07-22 04:05:00 Georgi Campbell - NOW AND REPEAT 2X EVERY 3 HOURS TROPONIN 2020-07-22 04:05:00 Georgi Campbell HC COMPLETE BLD COUNT 2020-07-22 04:05:00 Abilio Menjivar W/AUTO DIFF PROTHROMBIN TIME WITH INR 2020-07-22 04:05:00 Georgi Campbell COMPREHENSIVE METABOLIC 2020-07-22 04:05:00 Abilio Menjivar PANEL MAGNESIUM LEVEL 2020-07-22 04:05:00 Georgi Campbell Meth odist PHOSPHORUS LEVEL 2020-07-22 04:05:00 Georgi Campbell Met hodist ESTIMATED GFR 2020-07-22 04:05:00 Georgi Campbell Meth odist LACTIC ACID LEVEL, SEPSIS 2020-07-21 20:00:00 MjGeorgi ton [facility] - NOW AND REPEAT 2X EVERY 3 HOURS TROPONIN 2020-07-21 20:00:00 Georgi Campbell Meth odist COVID-19 QUALITATIVE PCR 2020-07-21 20:00:[address] ABDOMEN PELVIS W 2020-07-21 17:10:38 Amanda Sweeney CONTRAST US GALLBLADDER 2020-07-21 17:03:48 Amanda Sweeney Me thodist HC COMPLETE BLD COUNT 2020-07-21 15:58:00 Amanda Sweeney [facility] W/AUTO DIFF PROTHROMBIN TIME WITH INR 2020-07-21 15:58:00 Amanda Sweeney [facility] PARTIAL THROMBOPLASTIN 2020-07-21 15:58:00 Amanda Sweeney [facility] TIME (PTT) URINALYSIS SCREEN AND 2020-07-21 15:58:00 Amanda Sweeney MICROSCOPY, WITH REFLEX TO CULTURE HCG QUALITATIVE, URINE 2020-07-21 15:58:00 Amanda Sweeney [facility] SCREEN COMPREHENSIVE METABOLIC 2020-07-21 15:58:00 Amanda Sweeney [facility] PANEL LACTIC ACID LEVEL, SEPSIS 2020-07-21 15:58:00 Georgi Campbell [facility] - NOW AND REPEAT 2X EVERY 3 HOURS LIPASE LEVEL 2020-07-21 15:58:00 Amanda Sweeney Me thodist TROPONIN 2020-07-21 15:58:00 Georgi Campbell Luiza odist ESTIMATED GFR 2020-07-21 15:58:00 Amanda Sweeney Me thodist URINE CULTURE 2020-07-21 15:58:[address] [facility] CT ABDOMEN PELVIS W 2020-07-05 19:05:34 Antwan [facility] CONTRAST URINALYSIS SCREEN AND 2020-07-05 17:49:00 Antwan Lino [facility] MICROSCOPY, WITH REFLEX TO CULTURE HCG QUALITATIVE, URINE 2020-07-05 17:49:00 Antwan Lino [facility] SCREEN ESTIMATED GFR 2020-07-05 17:47:00 Antwan Lino ethodist URINE CULTURE 2020-07-05 17:47:00 Antwan Lino ethodi HC COMPLETE BLD COUNT 2020-07-05 17:47:00 Antwan Lino [facility] W/AUTO DIFF COMPREHENSIVE METABOLIC 2020-07-05 17:47:00 Antwan Lino [facility] PANEL LIPASE LEVEL 2020-07-05 17:47:00 Antwan Lino ethodist US GALLBLADDER 2020-07-05 17:38:49 Antwan Lino ethodist Plan of Care Planned Activity Planned Date Details Comments Source Future Scheduled 2021-04-[address] [facility] - Test 00:00:00 (Season Ended) [code Medical Center = INFLUENZA VACCINE (Season Ended)] Future Scheduled 2021-03-12 INFLUENZA VACCINE [place] [facility] Test 00:00:00 [code = INFLUENZA VACCINE] Future Scheduled 2020-08-[address] [facility] - Test 00:00:00 (12+) [code = [facility] DEPRESSION SCREENING (12+)] Future Scheduled [address] [facility] - Test 00:00:00 malignant neoplasm Medical C enter of cervix (procedure) [code = 205502649] Future Scheduled 2014 Screening for [facility] Test 00:00:00 malignant neoplasm of cervix (procedure) [code = 414005346] Future Scheduled 2012 DTAP/TDAP/TD [facility] Test 00:[facility]00 VACCINES (1 - Tdap) [facility] [code = DTAP/TDAP/TD VACCINES (1 - Tdap)] Future Scheduled [address] [facility] - Test 00:00:00 SCREENING [code = Medical nter HEPATITIS C SCREENING] Future Scheduled 2011 Hepatitis C [place] [facility] Test 00:00:00 screening (procedure) [code = 106036831] Future Scheduled 2005 COVID-19 VACCINE (1) [facility] Test 00:00:00 [code = COVID-19 VACCINE (1)] Encounters Start End Encounter Admission Attending Care Care Encounter Source Date/Time Date/Time Type Type Clinicians Facility Department ID 2020-10-22 2020-10-22 Emergency RUFF[place], [place] [address] [id number] [place] 00:00:00 00:00:00 RADHA 545 Metho di 2020-08-16 2020-08-16 Outpatient FIORE, [facility] [id number] [place] 00:00:00 00:00:00 SYEDA 745 [facility] violet 2020-08-10 2020-08-10 Emergency MARCUM, [place] [address] [id number] [place] 00:00:00 00:00:00 ERLINDA 417 Method i 2020-07-21 2020-07-23 Inpatient BUNCH, [facility] 064 [id number] [place] 00:00:00 00:00:00 SIDRAH 738 Method i 2020-07-12 2020-07-12 Outpatient FIORE, [facility] [id number] [place] 00:00:00 00:00:00 SYEDA 514 Meth violet 2020-07-05 2020-07-05 Emergency TANYA BARTON [facility] [id number] [place] 00:00:00 00:00:00 916 Method i 2020-05-22 2020-05-22 Emergency [facility] [id number] 10:05:00 12:50:00 Ana Addison [id number] [place] [id number] [place] [id number] 2020-05-22 2020-05-22 Orders Doctor ZORA [id number] 00:00:00 00:00:00 Only Unassigned, KIRA [id number] [place] [facility] [id number] 2019-03-12 2019-03-12 Telephone [facility] [id number] 00:00:00 00:00:00 Lauren Benitez KOHINOOR OPERATOR [id number] [facility] [id number] MATERNAL [id number] & CHILD [address] [place] [address] Results Test Description Test Time Test Comments Results Result Comments Source Comprehensive metabolic panel 2020-11-30 02:06:00 Test Item Value Reference Range Interpretation Comme nts Protein, Total (test 6.6 See_Comment Specime n slightly code = 2885-2) hemolyzed [Au tomated message] The sy stem which generated this result transmit aleks reference range : 6.0 - 8.5 gm/dL. The reference range was not used to interpr et this result as normal/abnormal . Albumin (test code = 3.2 g/dL 3.5-5 L Specime n slightly 69931-1) hemolyzed Alkaline Phosphatase 63 U/L 30-115 (test code = 6768-6) Total Bilirubin (test 0.3 mg/dL 0.1-1.2 Specim en slightly code = 1975-2) hemolyzed Sodium (test code = 138 meq/L 797-790 2507-2) Potassium (test code = 3.7 meq/L 3.6-5.5 Speci men slightly 2823-3) hemolyzed Chloride (test code = 105 meq/L 98-106 2074-0) CO2 (test code = 22 meq/L 20-29 2027-9) BUN (test code = 7 mg/dL 10-26 L 3094-0) Creatinine (test code 0.80 mg/dL 0.5-1.2 Specim en slightly = 2160-0) hemolyzed Glucose (test code = 123 mg/dL 70-110 H 2345-7) Calcium (test code = 8.3 mg/dL 8.5-10.5 L 27562-1) AST (test code = 19 U/L 5-40 Specimen sl ightly 1920-8) hemolyzed ALT (test code = 10 U/L 5-50 Specimen sl ightly 1742-6) hemolyzed EGFR (test code = 104 mL/min/1.73 [place] [address]-4) ACCURATE CRE ATININE CLEARANCE IN [place] EDICTING GLOMERULAR FILT RATION RATE. ESTIMATED GFR IS NOT APPLICABLE FOR DIALYSIS PATIEN TS. VERITO (test code = VERITO) [employer] Installer ID - JUSTINOperator ID - JUSTINOperator ID - JUSTINOperator ID - JUSTINOperator ID - JUSTINOperator ID - JUSTINOperator ID - JUSTINOperator ID - JUSTINOperator ID - JUSTINOperator ID - JUSTINOperator ID - JUSTINOperator ID - JUSTINOperator ID - JUSTINOperator ID - JUSTINOperator ID - JUSTINOperator ID - JUSTINOperator ID - JUSTINOperator ID - JUSTINOperator ID - KENDRICK Lab Interpretation Abnormal (test code = 28598-2) [facility] [id number] 02:06:00 Test Item Value Reference Range Interpretation Comments TOTAL PROTEIN 6.6 gm/dL 6.0-8.5 Specimen sligh tly (BEAKER) (test code = hemoly zed 770) ALBUMIN (BEAKER) 3.2 g/dL 3.5-5.0 L Specimen sl ightly (test code = 1145) hemolyzed ALKALINE PHOSPHATASE 63 U/L 30-115 (BEAKER) (test code = 346) BILIRUBIN TOTAL 0.3 mg/dL 0.1-1.2 Specimen sli ghtly (BEAKER) (test code = hemoly zed 377) SODIUM (BEAKER) (test 138 meq/L 135-148 code = 381) POTASSIUM (BEAKER) 3.7 meq/L 3.6-5.5 Specimen slightly (test code = 379) hemolyzed CHLORIDE (BEAKER) 105 meq/L 98-106 (test code = 382) CO2 (BEAKER) (test 22 meq/L 20-29 code = 355) BLOOD UREA NITROGEN 7 mg/dL 10-26 L (BEAKER) (test code = 354) CREATININE (BEAKER) 0.80 mg/dL 0.50-1.20 Specimen slightly (test code = 358) hemolyzed GLUCOSE RANDOM 123 mg/dL 70-110 H (BEAKER) (test code = 652) CALCIUM (BEAKER) 8.3 mg/dL 8.5-10.5 L (test code = 697) AST (SGOT) (BEAKER) 19 U/L 5-40 Specimen slightly (test code = 353) hemolyzed ALT (SGPT) (BEAKER) 10 U/L 5-50 Specimen slightly (test code = 347) hemolyzed EGFR (BEAKER) (test 104 ESTIMATE D GFR IS code = 1092) mL/min/1.73 sq NOT ACCURA TE m CREATININE CLEARANCE IN PREDICTING GLOMERULAR FILTRATION RATE . ESTIMATED GFR I S NOT APPLICABLE FOR DIALYSIS PATIEN TS. Fiberglass Insulation Installer ID - JUSTINOperator ID - JUSTINOperator ID - JUSTINOperator ID - JUSTINOperator ID - JUSTINOperator ID - JUSTINOperator ID - JUSTINOperator ID - JUSTINOperator ID - JUSTINOperator ID - JUSTINOperator ID - JUSTINOperator ID - JUSTINOperator ID - JUSTINOperator ID - JUSTINOperator ID - JUSTINOperator ID - JUSTINOperator ID - JUSTINOperator ID - JUSTINOperator ID - JUSTINCBC with platelet count + automated [id number] 01:38:00 Test Item Value Reference Range Interpretation Comments WBC (test code = 6690-2) 7.1 See_Comment [A utomated message] The system [employer] generated this result transmitted ref erence range: 4.0 - 10 .0 K/L. The refe rence range was not u sed to interpret this result as normal/abnor mal. RBC (test code = 789-8) 4.11 See_Comment [Au tomated message] The system [employer] generated this result transmitted ref erence range: 4.00 - 5 .00 M/L. The refe rence range was not u sed to interpret this result as normal/abnor mal. MCHC (test code = 786-4) 28.9 See_Comment L [A utomated message] The system [employer] generated this result transmitted ref erence range: 32.0 - 3 6.0 GM/DL. The refe rence range was not u sed to interpret this result as normal/abnor mal. Hematocrit (test code = 27.0 % 36-46 L 4544-3) MCV (test code = 787-2) 65.7 fL 82-99 L MCH (test code = 785-6) 19.0 pg 27-33 L RDW (test code = 788-0) 17.8 % 12-15 H Platelets (test code = 411 See_Comment [Aut omated message] 777-3) The system [employer] generated this result transmitted ref erence range: 150 - 43 0 K/CU MM. The referen ce range was not u sed to interpret this result as normal/abnor mal. MPV (test code = 9.9 fL 6-11.5 08743-2) nRBC (test code = 413) 0 See_Comment [Aut omated message] The system [employer] generated this result transmitted ref erence range: 0 - 0 /1 00 WBC. The refere nce range was not u sed to interpret this result as normal/abnor mal. % Neutros (test code = 71 % 429) % Lymphs (test code = 17 % 430) % Monos (test code = 10 % 431) % Eos (test code = 432) 1 % % Baso (test code = 437) 1 % # Neutros (test code = 5.03 See_Comment [Aut omated message] 670) The system [employer] generated this result transmitted ref erence range: 1.80 - 8 .00 K/L. The refe rence range was not u sed to interpret this result as normal/abnor mal. # Lymphs (test code = 1.24 See_Comment L [Auto mated message] 414) The system [employer] generated this result transmitted ref erence range: 1.48 - 4 .50 K/L. The refe rence range was not u sed to interpret this result as normal/abnor mal. # Monos (test code = 0.71 See_Comment [Autom ated message] 415) The system [employer] generated this result transmitted ref erence range: 0.00 - 1 .30 K/L. The refe rence range was not u sed to interpret this result as normal/abnor mal. # Eos (test code = 416) 0.07 See_Comment [Au tomated message] The system [employer] generated this result transmitted ref erence range: 0.00 - 0 .50 K/L. The refe rence range was not u sed to interpret this result as normal/abnor mal. # Baso (test code = 417) 0.04 See_Comment [A utomated message] The system [employer] generated this result transmitted ref erence range: 0.00 - 0 .20 K/L. The refe rence range was not u sed to interpret this result as normal/abnor mal. Immature 0 % 0-0 Granulocytes-Relative (test code = 2801) Lab Interpretation (test Abnormal code = 87008-3) [facility] W/PLT COUNT & AUTO [id number] 01:38:00 Test Item Value Reference Range Interpretation Comments WHITE BLOOD CELL COUNT (BEAKER) 7.1 K/ L 4.0-10.0 (test code = 775) RED BLOOD CELL COUNT (BEAKER) 4.11 M/ L 4.00-5.00 (test code = 761) HEMOGLOBIN (BEAKER) (test code = 7.8 GM/DL 12.0-15.5 L 410) HEMATOCRIT (BEAKER) (test code = 27.0 % 36.0-46.0 L 411) MEAN CORPUSCULAR VOLUME (BEAKER) 65.7 fL 82.0-99.0 L (test code = 753) MEAN CORPUSCULAR HEMOGLOBIN 19.0 pg 27.0-33.0 L (BEAKER) (test code = 751) MEAN CORPUSCULAR HEMOGLOBIN CONC 28.9 GM/DL 32.0-36.0 L (BEAKER) (test code = 752) RED CELL DISTRIBUTION WIDTH 17.8 % 12.0-15.0 H (BEAKER) (test code = 412) PLATELET COUNT (BEAKER) (test 411 K/CU MM 150-430 code = 756) MEAN PLATELET VOLUME (BEAKER) 9.9 fL 6.0-11.5 (test code = 754) NUCLEATED RED BLOOD CELLS 0 /100 WBC 0-0 (BEAKER) (test code = 413) NEUTROPHILS RELATIVE PERCENT 71 % (BEAKER) (test code = 429) LYMPHOCYTES RELATIVE PERCENT 17 % (BEAKER) (test code = 430) MONOCYTES RELATIVE PERCENT 10 % (BEAKER) (test code = 431) EOSINOPHILS RELATIVE PERCENT 1 % (BEAKER) (test code = 432) BASOPHILS RELATIVE PERCENT 1 % (BEAKER) (test code = 437) NEUTROPHILS ABSOLUTE COUNT 5.03 K/ L 1.80-8.00 (BEAKER) (test code = 670) LYMPHOCYTES ABSOLUTE COUNT 1.24 K/ L 1.48-4.50 L (BEAKER) (test code = 414) MONOCYTES ABSOLUTE COUNT (BEAKER) 0.71 K/ L 0.00-1.30 (test code = 415) EOSINOPHILS ABSOLUTE COUNT 0.07 K/ L 0.00-0.50 (BEAKER) (test code = 416) BASOPHILS ABSOLUTE COUNT (BEAKER) 0.04 K/ L 0.00-0.20 (test code = 417) IMMATURE GRANULOCYTES-RELATIVE 0 % 0-0 PERCENT (BEAKER) (test code = 2801) [id number] 00:00:00Ordered by an unspecified provider.[facility] HospitalCT, [id number] 20:33:00Unlisted Reason for Exam - Click Yes and Enter Reason Below->NoWill this procedure require oral contrast?->No [facility] 1995 Sex: FFINAL REPORT ABDOMINAL AND PELVIS CT DATED 11/21/2020 CLINICAL INFORMATION: Abdominal pain, feverAbdominal infection suspectedNausea/vomiting TECHNIQUE: Axial images of the abdomen and [...] Both kidneys are normal in size and functioning.No hydronephrosis, hydroureter, urolithiasis is seen. The small [...] MDReport Verified Date/Time: 11/21/2020 20:33:54 Reading Location: [facility] C013 Consult Reading Room CT abdomen/pelvis with IV [id number] 20:33:00Interface, External Ris In - 11/21/2020 8:36 PM CDTFINAL REPORT ABDOMINAL AND PELVIS CT DATED 11/21/2020 CLINICAL INFORMATION: Abdominal pain, feverAbdominal infection suspected Nausea/vomiting TECHNIQUE: Axial images of the abdomen and [...] MDReport Verified Date/Time: 11/21/2020 20:33:54 Reading Location: [facility] C013W Consult Reading Room [facility] HospitalLipase2021-[facility] 18:33:00 Test Item Value Reference Range Interpretation Comments Lipase (test code = 8 U/L 6-51 3040-3) VERITO (test code = VERITO) Fiberglass Insulation Installer ID - JUSTINOperator ID - JUSTINOperator ID - JUSTINOperator ID - KENDRICK Lab Interpretation Normal (test code = 28519-7) [facility] HospitalCOMPREHENSIVE METABOLIC [id number] 18:33:00 Test Item Value Reference Range Interpretation [...] S NOT APPLICABLE FOR DIALYSIS PATIEN TS. Fiberglass Insulation Installer ID - JUSTINOperator ID - JUSTINOperator ID - JUSTINOperator ID - JUSTINOperator ID - JUSTINOperator ID - JUSTINOperator ID - JUSTINOperator ID - JUSTINOperator ID - JUSTINOperator ID - JUSTINOperator ID - JUSTINOperator ID - JUSTINOperator ID - JUSTINOperator ID - JUSTINOperator ID - JUSTINOperator ID - [id number] 18:33:00 Test Item Value Reference Range Interpretation Comments LIPASE (BEAKER) (test code = 749) 8 U/L 6-51 [employer]erg[employer] Insulation Installer ID - JUSTINOperator ID - JUSTINOperator ID - JUSTINOperator ID - KENDRICK CBC W/PLT COUNT & AUTO [id number] 18:16:00 Test Item Value Reference Range Interpretation [...] PERCENT (BEAKER) (test code = 2801) Urinalysis w/[id number] 18:13:00 Test Item Value Reference Range Interpretation Comments Color, UA (test code = Yellow 5778-6) Clarity, UA (test code Clear = 5767-9) Specific Mobile, UA 1.025 1.001-1.035 (test code = 5811-5) pH, UA (test code = 7.0 5.0-8.0 5803-2) Protein, UA (test code Negative Negative = 36149-7) Glucose, UA (test code Negative Negative = 365) Ketones, UA (test code Negative Negative = 2514-8) Bilirubin, UA (test Negative Negative code = 65676-4) Blood, UA (test code = Negative Negative 48320-4) Nitrite, UA (test code Negative Negative = 5802-4) Leukocytes, UA (test Negative Negative code = 5799-2) Urobilinogen, UA (test 0.2 mg/dL 0.2-1 code = 94558-6) Bacteria, UA (test None Seen code = 56874-6) RBC, UA (test code = None Seen See_Comment [Autom ated message] 799-7) The system [employer] generated this result transmitted ref erence range: /HPF. Th e reference range was not used to int erpret this result as normal/abnormal . WBC, UA (test code = None Seen See_Comment [Autom ated message] 93955-5) The system [employer] generated this result transmitted ref erence range: /HPF. Th e reference range was not used to int erpret this result as normal/abnormal . SQUAMOUS EPITHELIAL None Seen See_Comment [Automa aleks message] (test code = 18001-5) The sy stem which generated this result transmitted ref erence range: /HPF. Th e reference range was not used to int erpret this result as normal/abnormal . Specimen Source (test code = 2795) [facility] HospitalURINALYSIS W/ [id number] 18:13:00 Test Item Value Reference Range Interpretation [...] = 2795) RAD, CHEST, 1 VIEW, NON [id number] 16:45:00Reason for exam:->fever and abdominal painShould this be performed at the bedside?->Yes [facility] 1995 Sex: FFINAL REPORT CHEST AP PORTABLE History provided: Fever, abdominal pain Radiographically normal-appearing heart and lungs. Signed: Polo Onofre Verified Date/Time: 11/21/2020 16:45:24 Reading Location: [facility] Radiology Reading Room XR chest 1 view portable / [id number] 16:45:00 Interface, External Ris In - 11/21/2020 4:47 PM CDTFINAL REPORT CHEST AP PORTABLE History provided: Fever, abdominal pain Radiographically normal-appearing heart and lungs. Signed: Polo Onofre Verified Date/Time: 11/21/2020 16:45:24 Reading Location: [facility] Radiology R eading Room [facility] HospitalTissue [id number] 15:53:00 Test Item Value Reference Range Interpretation Comments Case Report (test code Surgical Pathology = 104) Report Case: [id number] Authorizing Provider: Beatriz Martinez MD Collected: 11/08/2020 04:08 PM Ordering Location: [facility] PERIOPERATIVE Received: 11/09/2020 08:07 AM SERVICES Pathologist: Gwen Velez MD Specimen: Uterus w/Cervix & Bilateral Fallopian Tubes, UTERUS, CERVIX AND BILATERAL FALLOPIAN TUBES. DIAGNOSIS (test code = s1frnWZnHFUtp2ecXJAeiBT 3220) uZzEwMzNcZnRuYmpcdWMxIH tccnRmMVxlcGljOTIwMlxhb mNmHLCzxDXgL2XhxjtzYQtl QJ1rIX0woSeuiQTdhEWyYUL qUtLts7dfv901iQVrn8saSF SEzoputWp0wCmwM57lj8Z0O nemD42eiOEiFDpguDDziirt czIwIFVURVJVUyBXSVRIIEN FUlZJWCBBTkQgQklMQVRFUk FMIEZBTExPUElBTiBUVUJFU fknDOxLPEACPAGNS02VKHNN QHLIIUsKEJJOSVyiQ6CHBGl NJ1MXIT5GJYkriFJvDYHCFU 9NRVRSSVVNOlxwYXIgICAgL ICBAb5HXEGHNyLHGFBUVEJM GX7RZAEKFGORSFZqubRPKH3 NRVRSSVVNOlxwYXIgICAgLS PMJoDYTRrGUEOCU5GUUNTSI ONNT9pTG1wMZAVCKKIFHAXA M38toEUjTAOEX8iVJALFRYu PUElBTiBUVUJFOiBccGFyIC IqHL0cEWYHREQXVhPTTHZRW 2PloXSyARwWMlDvWrEOJI3K HHBQQMNPCqS0IGSntnNeUBK vPW0BCIRAL98EAstICL7COE QAJScJSH1DDKNhMUtRPAKLB PlNSrpzRJVuyRIdLZ7UU5Tn JVdkQGH3d3iucNAdLNQxvYE xODAwMFxhbnNpXGRlZmxhbm pjNTAnATN7vxSpLBFxNOvcV MLvJQhlQx0umFOtvOcqBpEx IJWgz6uquzLFcusgbMj9y0q uJAVxMbD6oOKcNUjjF9etbq CgvGHaNRBxLAw9aP57ODSzl S5rgKMqOXdjjfBzImY2YNdx WZTeJvI6PJOjoMOnFGNhH9k yZWQwXGdyZWVuMFxibHVlMC M4jVobw0K0jFGpaQVmxQanC xJpOxEwEfUHm7EaOJt5cFqz F0BcUUFkIdN2dMNtSBJbBIf qQEXvMSHtntN2oA91SVnuhb Y2cZJlt5Uej37mb383mH8ax CRmPBO8NZFjIBHpmDPxQKVr YET5CHDsbQCbX0uxWIXlEP4 euztaEPnvCNjvXHHoiHR9OI IxoUEhB6BkSFEyHCwiXULot vk6UqXiZc3reQLcfBryTYjc p2nam0sdjGDyIml4TNCcTfC jVauhVXtuq4Gkf2ebBYXaib 1oNQG4pFOkcJxba9R4eHYxG ADcnOXlNJKcGV5duUWrXVPi cY9vvvhxWCBhSmJqxvmsTBC lcJdwavTdNy2obZffNEC4CX vpM1jtmT2mMgM2WAztT6blo C9tCMa4OTxaTSRdrRZ9duG7 XGMcjBDvI9VtxP3pYPLoJS7 uxsi7t8upDIE1EQwpNKYrSc A7ktK9XDZkfJTaTKNzkTqnK Tlhs620AQL8GpVoLWAjn3Ps N0DgoBhfK41voAcjK56aPYH joKcqbX9hfZvykK1mMvJyNu ToTWwplCklST8lGNIzI4yji HQtOPGnNMXxB5gwHuVnxE8l aLtoBVnratDcOXUjHzn4NJE ibWRjFDOqDdb6GCYrLKKlY7 2hnvtwZAQ1nY6se6btt4PkE LolUVZ5GFSlo93aHGdhvaO0 UEnuYu23YAlqYgG7UUiyJEE 9fQ== CPT Code(s) (test code f0hwwENwEVFjcXP9CbRbVKU = 3357) bu1lkc1UlbKKwzMLyLLsouB TnsbToda89aYR4jU65TD0qI FEjRgB9NRMyojE0Bfa8MCYs JTRuzPNdE653i8btf5tyynN hxEO4iRamMLFqHZZgPRwaKC ZzMjAgODgzMDdccGFyfQ== CLINICAL HISTORY (test j5ehqVFsDRPotSS6RdMlQJL code = 3356) sn8irf0IccFDtmPHkGRanrO UeusDefo17sKR1iB29UT7wB BQnMiO9TRMuoxY0Idu8HMEv CRHsnBMqY412t8djf5jvxoE thYR7hFmzIDLdUHMyQGmlDI BiRwQfSIeaKPWjbMBnRG4sH ILuJSU7XN95SA6hodT6oyMj dGlvblxwYXJ9 SPECIMEN SOURCE (test e3jouCDaQSQrtWZ9QbHpERR code = 3377) rz3dht6KtgAExrLYkLBjinK SfwmFkqf57mFY7fL38RC9oC FZbAyK5SFShmrI1Nrb0JSPv WPJcbJCpD353i3oyw8zxvmD bmOT6qJsnEIJvLQUaAAjhJH CgQjAnPEOywcZbRCKvFPN1s XgsIGFuZCBiaWxhdGVyYWwg MhVnbZ1bsJDxYTC0PsUonYQ yfQ== GROSS DESCRIPTION b6wlsHXrNGKmrDR6AkAgSOV (test code = 3366) js8iiu3HzeMKjbZRsBMsvwD KabhEoer50vBS6kZ63MM5xE LJvZnA9SKSefaD7Irz3BXOq QGMqcBGqD382v7vvz9blyeB ukXN9uXdrRORnJPFxLCbyNP ZzMjAgVGhlIHNwZWNpbWVuI JgsFNNzN1ZhwlNsZZwjCPEx hIN6rSOcQDMeTZJhISXauVA kIHdpdGggdGhlIHBhdGllbn RorzBoBC1hVGOmEVNpO7VsZ FSdH05nKUMovV9uOXVoCT9l ZKXef8ptbqC3XFBwBOWeAmS 8RGD8mqJ0nFXjYTFpynGbjW BhbmQgYmlsYXRlcmFsIGZhb MknoAsqyuQ0zZKlqyZyPZ1u WABgjcTpu7FfMK6bVEMuzNz zrLLiDMP2j536FBGdVTJhlI LuRRf6MEBzgThyTf84DZYxY YY6oGRijO3tRXUqOXlwFlTu vF2wCUI5HsKpZ62iX03wezO veD7bF58hooTwIK8oXTYjJR XqiLYqeeXdsyyqcoP8ouGwh 1S6VGYwu0EvNSjppYapSEE1 YWNoZWQgcmlnaHQgZmFsbG9 isHWdGXC2GkRap9h3zJBiuC 1icmlhdGVkIGVuZCBtZWFzd GIjnwpkGU7wUWDjNZwgBHjn mhh8cNBuhaVtEZ18TDDuTUu jBPSuLD5kgMTyNVMuHVUroB FpM5nxZQCqJAF0QPAvtNbqs RccbuH7lLTdWVhyqRfxUzci SqIwFBVnDWLxdgWiiNDek0Q iaF5qTSDpVYHdgQTxqiRyBI 7hlFmny0h0dVNoMkQhF70mp T2nOLiwfZR2AQAsYUZbJNNp eAknjCSbULjtp8NePX4mdFJ iZSBoYXMgYSBwYXJhdHViYW mzQ2bsfJNvIJ18TAokQW2vR OkwWD4sLHScMM6pRPScUWEv VIS0bHabeWFdwSbllq83CS2 zHQ2bMJCug782vJI5hSUsOZ 5nCDBwu4JxWRFyTGdpu1arb nUwqPXbycIiCwjxXR7lDBfi KJUrHD6tWCZlpTApDIcpOWG pGN8pax91fgQozvFxbROfPL 8uABHvBOxgEPwhVIJ1ORT0O CDbsZKgkvRpuc7mAVoxJT03 g42fcFGbuL1heGYutBwlzt0 2XS9sUP2zJXInCSTjI0UdFB FtSTPmdsFypNSneKKafE5gC D01YZRvNAzqHEfmYJG9UES7 PRNmbKMqwnZfry2fVb4ztV7 6okGcnUCbpMDea3Q0gKBlLH FyZSBpZGVudGlmaWVkLiBcc OLaDXHhwxUQTBK6eX5bJPQo CLD3ACXkNCUwicUkiqharsH rTFD1xKq4EVVoBAXde5K7GF Ubo3KeF4Tldos2KjMEDeguC G94QYTbi8WcBP5gx282y42b aRAgqT02ENM4GCJub2T0MFH tt1XsMR3lp589n48vvTGzeJ 19PJE9RROybQjbqGIadZ9nl mlhdGVkIGVuZCBlbnRpcmVs fLMusRIvdUQ6WJHmCXvynbt lt7f0oFGzcMalaOJgFUOswJ GeSQpuK2eyzZslKDQoVAMiw WAen7FpyLM8jVQzWJKim8Pm QBWuI1Mkh22xJA5vQKOgA5d 9DBOfoIgegDpudhA3aYUpEq CXUnlctQZtdKRxdW1hokzqz GVkLCBlbnRpcmVseSBzdWJt lIQ8LHA0SWJ3HKWbPXQlMZL ylgTugEm6BQSfuw4yomVuTG X4bD9wtmBaQhIgOOT4SIEwb JalkGvzayL7wHLcJtNaBUht cGwgXHBhcn0= MICROSCOPIC j7vieATyQAMbjAP0JsNtPOI DESCRIPTION (test code pn0spf7HyaYVuyWTwPBjlnW = 3371) XfibWwnh80xCG2hS41RZ9nI QNdBrW4KQKqenN1Hbx1YUQm ZZRiyWYcF314k9jut2vpeuT kvNK8eLpcBEJgUZKtNXcdCX JqKkXgJNHzMm4rfEOkURbyG XJ[address] [facility] performed at ([facility], Department of code = 2777) Pathology, [address] [place] [address], Technical component [facility] was performed at ([facility], code = 2778) Department of Pathology, [address] [place] [address], Professional component [facility] was performed at ([facility], Department of code = 2779) Pathology, [address] [place] [address], [facility] HospitalTISSUE [id number] 15:53:00Surgical Pathology Report Case: [id number] Authorizing Provider: Beatriz Martinez MD Collected: 11/08/2020 04:08 PM Ordering Location: [facility] PERIOPERATIVE Received: 11/09/2020 08:07 AM SERVICES Pathologist: Gwen Velez MD Specimen: Uterus w/Cervix & Bilateral Fallopian Tubes, UTERUS, CERVIX AND BILATERAL FALLOPIAN TUBES. UTERUS WITH CERVIX AND BILATERAL FALLOPIAN TUBES, HYSTERECTOMY AND BILATERAL SALPINGECTOMY:ENDOMETRIUM: - PROLIFERATIVE ENDOMETRIUMMYOMETRIUM: - NO SIGNIFICANT PATHOLOGIC ALTERATIONRIGHT FALLOPIAN TUBE: - PARATUBALCYSTLEFT FALLOPIAN TUBE: - NO SIGNIFICANT PATHOLOGIC ALTERATIONMG/pl Signing Pathologist Direct Phone Line: [phone] signed by Gwen Velez MD on 11/10/2020 at 3:53 [id number] or frequent menstruationUterus, cervix, and bilateral fallopian [...] submitted along with right paratubal cyst; A6, premium service representative cross sections of right fallopian tube; A7, left fimbriated, entirely submitted; A8, premium service representative cross sections of left fallopian tube. MG/pl Performed [facility], Department of Pathology, [address] [place] [address], [facility], Department of Pathology, [address] [place] [address], [facility], [address] [place] [address], FURT-CoV2/Influenza/RSV RT-PCR (Symptomatic ONLY)2020-11-08 20:30:00 Test Item Value Reference Range Interpretation Comments SARS-COV2/RT-PCR (test Positive Negative AA code = 40365-5) Influenza A RT-PCR Negative Negative (test code = 45667-2) Influenza B RT-PCR Negative Negative (test code = 71525-4) RSV by RT-PCR (test Negative Negative Performa nce of the code = 30922-1) Xpert Xpress SARS-CoV-2/Flu/ RSV test has only [...] result s.This test has been authorized by F YUDITH under an EUA for use by authorized [...] Fact Sh eet for Healthcare Prov iders: https://www.[employer] /Documents/Xper t%20Xpre ss%76VHIC-IjW-1 -Flu-RSV /3024508%20Rev .%20B%20 HCP%20Fact%20Sh eet.pdf Fact Sheet for Healthcare Jaz ents: https://www.[employer] /Documents/Xper t%20Xpre ss%16DYGA-WbB-1 -Flu-RSV /302-4507%20Rev .%20B%20 Patient%20Fact% 20Sheet. pdf Lab Interpretation Abnormal (test code = 40865-8) [facility]/RSV [id number] 20:30:00 Test Item Value Reference Range Interpretation Comments SARS-COV2/RT-PCR Positive Negative AA (test code = 3708402) INFLUENZA A RT-PCR Negative Negative (test code = 8765664) INFLUENZA B RT-PCR Negative Negative (test code = 6267317) RSV RT-PCR (test Negative Negative Performanc e of the Xpert code = 5464521) Xpress SARS- CoV-2/Flu/RSV test has only b een established in nasopharyngeal swab specimens. Use of the Xpert Xpress SARS-CoV-2/Flu/ RSV test with other spec imen types has not been as sessed and performance characteristics are unknown. As wi th any molecular test, mutations within the targ eted genetic regions identified by t he Xpert Xpress SARS-CoV -2/Flu/RSV test could affe [...] sooner.Fact She et for Healthcare Prov iders: https://www.[employer].com/D ocuments/Xpert% 20Xpress%2 9GRYX-RaU-9-Flu -RSV/- 508%20Rev.%20B% 20HCP%20Fa ct%20Sheet.pdfF act Sheet for Healthcare Patients: https://www.[employer].com/D ocuments/Xpert% 20Xpress%2 4NZWM-HsL-2-Flu -RSV/- 507%20Rev.%20B% 20Patient% 20Fact%20Sheet. pdf Screen, [id number] 13:18:00 Test Item Value Reference Range Interpretation Comments Preg Test, Ur (test code = 2112-1) Negative [facility] HospitalPREGNANCY SCREEN, [id number] 13:18:00 Test Item Value Reference Range Interpretation Comments TEST URINE (BEAKER) (test Negative code = 583) Type and screen, [id number] 15:55:00 Test Item Value Reference Range Interpretation Comments ABO/RH AUTOMATED (BEAKER) (test O POSITIVE ECHO code = 2260) Ab Scrn (test code = 890-4) NEGATIVE ECHO [facility] Metabolic [id number] 15:01:00 Test Item Value Reference Range Interpretation Comments Sodium (test code = 140 meq/L 340-018 3773-2) Potassium (test code = 3.4 meq/L 3.6-5.5 L 2823-3) Chloride (test code = 106 meq/L 98-106 2075-0) CO2 (test code = 23 meq/L 20-29 2028-9) BUN (test code = 9 mg/dL 10-26 L 3094-0) Creatinine (test code 0.74 mg/dL 0.5-1.2 = 2160-0) Glucose (test code = 101 mg/dL 70-110 2345-7) Calcium (test code = 9.0 mg/dL 8.5-10.5 82456-2) EGFR (test code = 114 mL/min/1.73 [place] [address]-9) NOT ACCURATE CREATININE CLEARANCE IN PREDICTING GLOMERULAR FILTRATION RATE . ESTIMATED GFR I S NOT APPLICABLE FOR DIALYSIS PATIENTS. VERITO (test code = VERITO) Fiberglass Insulation Installer ID - [id number] ID - [id number] ID - [id number] ID - [id number] ID - zvoo51Ldgcdzoi ID - edrq96Owikzsca ID - pyjh35Kdxpfejk ID - gycz21Jevhthhu ID - grvn88Slvqzbiq ID - oxgh52Oglgmjdb ID - owlt73Uqqxlpws ID - fvnp32Ecinduwz ID - [id number] Lab Interpretation Abnormal (test code = 61541-5) [facility] METABOLIC [id number] 15:01:00 Test Item Value Reference Range Interpretation [...] S NOT APPLICABLE FOR DIALYSIS PATIEN TS. Fiberglass Insulation Installer ID - [id number] ID - [id number] ID - czoz61Rzdgobuq ID - sglq97Aigyqypw ID - jrhx95Knhefgtv ID - ptqr77Uhlqhxfh ID - dmyk12Fezuwijj ID - dazg20Poellqkz ID - twcs29Lzyxdvfu ID - xtzf02Glqxmurd ID - gwhu78Mdobbppx ID - yyhq84Cbemvctc ID - [id number] W/PLT COUNT & AUTO [id number] 14:33:00 Test Item Value Reference Range Interpretation [...] code = 2801) CT Abdomen Pelvis W Trzrpzgu9148-94-35 19:43:00Addendum by Zora Cornell on 10/22/2020 8:00 PM ADDENDUM #1 Addendum: Please note that there is a mistake in the description of the pelvis findings. The tip is within the vagina, not the bladder. Interface, Radiology Results - 10/22/2020 7:46 PM CST EXAMINATION: CT [...] No suspicious osseous lesions. SUMMARY:1.Negative study, unchanged [id number] [facility] 1 Vw [id number] 18:58:25Hm Interface, Radiology Results Incoming - 10/22/2020 7:01 PM CST EXAMINATION: XR CHEST 1 VW PORTABLECLINICAL HISTORY: 25 years Female SOB; PRESUMPTIVE COVID-19. COMPARISON: None available.TECHNIQUE: Portable AP radialIMPRESSION:Lines/Tubes: None.Lungs/Pleura: *Adequate lung volumes.*No lobar consolidation, pleural effusion or pneumothorax. Heart/Mediastinum: Normal cardiomediastinal silhouette and pulmonary vascularity. Bones: No acuteosseous abnormality.1D2RAD_PS01[facility] MethodistUrine [id number] 18:33:30 Test Item Value Reference Range Interpretation Comments Urine culture (test SEE COMMENT Bacteriu latrice screen code = 0959171) negative. [facility] HospitalistTISSUE [id number] 09:31:00Surgical Pathology Report Case: [id number] Authorizing Provider: Beatriz Martinez MD Collected: 08/23/2020 08:08 AM Ordering Location: [facility] PERIOPERATIVE Received: 08/23/2020 11:27 AM SERVICES Pathologist: Gwen Velez MD Specimens: A) -Curettings, Endocervical B) - Curettings, Endometrial A. ENDOCERVIX, CURETTINGS: - BENIGN ENDOCERVICAL MUCOSAB. ENDOMETRIUM, CURETTINGS: - ENDOMETRIAL POLYP - BACKGROUND PROLIFERATIVE ENDOMETRIUM Signing Pathologist Direct Phone Line: [phone] signedby Gwen Velez MD on 08/24/2020 at 9:31 [id number] abdominal pain A. Curettings endocervical; B. Currettings, [...] also submitted into B1. MG/pl A-B: Performed [facility], Department of Pathology, [address] [place] [address], [facility], Department of Pathology, [address] [place] [address], [facility], [address] [place] [address], QMOWSVDYL SCREEN, [id number] 06:27:00 Test Item Value Reference Range Interpretation Comments TEST URINE (BEAKER) (test Negative code = 583) SARS-CoV2/RT-PCR (Asymptomatic ONLY)2020-08-20 07:08:00 Test Item Value Reference Range Interpretation Comments SARS-COV2/RT-PCR Negative Not Detected, (test code = Negative, See 21963-2) external report for linked test SARS-COV-2 [facility] PERFORMING LAB (test code = 06339-7) VERITO (test code = Negative result for [...] the Act. Testing was performed using the FastDue SARS-CoV-2 assay. Fact Sheet for Healthcare Providers:https://www.[employer]Mobile/lucía/RT_SA JY-VeY-7_EEO_Jnap_Ieixg_ 51-479667.pdf Fact Sheet for Healthcare Patients:https://www.[employer].ParcelGenie/lucía/RT_SAR F-NkG-3_Kbhjeez_Xwjd_Isk et_EN_51-539777B5.pdf Performing Laboratory:[place] [address] [place] [address] [facility])2020-08-20 07:08:00 Test Item Value Reference Range Interpretation Comments SARS-COV2/RT-PCR (test Negative Not Detected, Negative, code = 9995854) See external report for linked test SARS-COV-2 PERFORMING LAB [facility] (test code = 7784999) Negative result for this test determines that [...] the Stevenson SARS-CoV-2 assay.Fact Sheet for Healthcare Providers:https://www.[employer]stevenson/lucía/ JM_KVIT-GnE-2_GAZ_Rmsw_Iueez_34-488386.pdfFact Sheet for Healthcare Patients:https://www.[employer] Solution darryl/lucía/JD_TZJT-VzX-4_Dsvnyib_Iqom_Cghrh_JZ_32-391617P8.pdfPerforming Laboratory:[facility] [place] [address] BASIC METABOLIC [id number] 11:08:00 Test Item Value Reference Range Interpretation [...] 1092) DATA TO CALCULA TE ESTIMATED GFR. Fiberglass Insulation Installer ID - LITOOperator ID - LITOOperator ID - LITOOperator ID - LITOOperator ID - LITOOperator ID - LITOOperator ID - LITOOperator ID - LITOOperator ID - LITOOperator ID - LITOOperator ID - LITOOperator ID - LITOOperator ID - LITOCBC W/PLT COUNT & AUTO [id number] 10:57:00 Test Item Value Reference Range Interpretation [...] (BEAKER) (test code = 2801) Surgical pathology [id number] 16:10:25 Test Item Value Reference Range Interpretation Comments Case number (test code = [id number]) Surgical pathology See link below for report (test code = PDF Lab Report 2255) Result status (test code This is Final Report = [id number]) for [id number] [place] [id number] 18:23:05PropreethitNirali CRNA 07/22/2020 6:24 PMAirway Date/Time: 07/22/2020 6:08 PMPerformed by: Nirali Alonso CRNAAuthorized by: Nirali Alonso CRNA Location: ORUrgency: ElectiveDifficult Airway: No Anesthesiologist: Sarath Guzman, MDResident/FIELD DIRECTOR/AA: Nirali Alonso CRNAPerformed by:anesthesiologist and resident/FIELD DIRECTOR/AAPreoxygenated with 100% O2: Yes C-spine Precautions Maintained [...] (RSI): Yes Number of Attempts at Approach: 1[place] EjmpvtstmKUTD-IdQ-1 (COVID-19) RNA [Presence] in Respiratory specimen by KATIE with probe [id number] 03:49:53 Test Item Value Reference Range Interpretation Comments SARS-CoV-2 (COVID-19) RNA Not detected Not-Detected [Presence] in Respiratory specimen by KATIE with probe detection (test code = 73071-7) [place] [id number] 17:07:20Hm Interface, Radiology Results Incoming - 07/21/2020 [...] portal vein measures 9 mm.IMPRESSION:Cholelithiasis with possible cholecystitis.[id number] Church
[2021-01-30 16:53] LABS: Absolute Lymphocytes (CBC) 1.4 K/uL (0.7-4.9); Basophils % 1.1 % (0-1.3); Hematocrit 37.4 % (36.0-45.0); Lymphocytes % 24.8 % (15.3-44.8); RBC Red Blood Cell Count 5.23 M/uL (3.86-4.86)
--- NOTE | 2021-01-30 16:54 | RAD REPORT ---
EXAM DESCRIPTION: RAD - Chest Single View - 01/30/2021 4:46 pm CLINICAL HISTORY: CHEST PAIN Chest pain. COMPARISON: Chest Single View dated 05/23/2020; Chest Single View dated 05/21/2020; Chest Single Vie w dated 04/17/2020; Chest Single View dated 02/08/2020; Chest For Pe Angio dated 11/29/2020 FINDINGS: Portable technique limits examination quality. The lungs are grossly clear. The heart is normal in size. No displaced fractures. IMPRESSION: No acute intrathoracic process suspected.
[2021-01-30 16:58] LABS: Protime INR 1.03
[2021-01-30 17:10] LABS: ALT/SGPT 21 U/L (12-78); AST/SGOT 17 U/L (15-37); Albumin 3.8 g/dL (3.4-5.0); Alkaline Phosphatase 90 U/L (45-117); BUN Blood Urea Nitrogen 10 mg/dL (7-18); Bicarbonate 30 mmol/L (21-32); Bilirubin Direct 0.1 mg/dL (0-0.2); Bilirubin Total 0.4 mg/dL (0.2-1.0); Glucose Level 75 mg/dL (74-106); Magnesium 2.1 mg/dL (1.8-2.4); NT PRO-BNP 126 pg/mL (<125); Potassium 3.7 mmol/L (3.5-5.1); Protein, Total 8.1 g/dL (6.4-8.2); Sodium Level 139 mmol/L (136-145); Troponin (Emerg Dept Use Only) < 0.02 ng/mL (0.0-0.045)
[2021-01-30] MEDS ORDERED: MORPHINE 4 MG/ML SYR ONE (17:58)
[2021-01-30] MEDS ORDERED: ONDANSETRON 4 MG/2 ML VIAL ONE (17:58)
[2021-01-30] MEDS ORDERED: FAMOTIDINE 20 MG/2 ML VIAL IV ONE (17:58)
--- NOTE | 2021-01-30 19:28 | RAD REPORT ---
EXAM DESCRIPTION: CTAbdomen Pelvis W Contrast - 01/30/2021 7:22 pm CLINICAL HISTORY: Abdominal pain. ABD PAIN COMPARISON: Abdomen Pelvis W Contrast dated 11/29/2020; Abdomen Pelvis W Contrast dated 0; Abdomen Pelvis W Contrast dated 01/11/2019; CT ABD PELVIS W CONTRAST dated 10/23/2015 TECHNIQUE: Biphasic CT imaging of the abdomen and pelvis was performed with 100 ml non-ionic IV cont rast. All CT scans are performed using dose optimization technique as appropriate and may include automated exposure control or mA/KV adjustment according to patient size. FINDINGS: The lung bases are clear.Cholecystectomy clips. The liver, spleen, pancreas, adrenal glands and kidneys are within normal limits. No bowel obstruction, free air, intra-abdominal free fluid or abscess. The appendix is normal. No e vidence of significant lymphadenopathy. No suspicious bony findings. Trace pelvic free fluid. IMPRESSION: No acute intra-abdominal or pelvic finding.
--- NOTE | 2021-01-30 19:52 | ER ---
Nurse's Notes [facility] Name: Cheyanne Lopes Age: 25 yrs Sex: Female : 1995 Arrival Date: 01/30/2021 Time: 15:16 Bed 17 Private MD: Diagnosis: Chest pain, unspecified;Unspecified abdominal pain Presentation: 01/30 15:30 Chief complaint: Patient states: CP, entire abd pain, R trunk pain for 2 weeks. States ll1 the last time she was here she was admitted for blood transfusion and transferred to [facility] (last month). Coronavirus screen: Client denies travel out of the [place] in the last 14 days. At this time, the client does not indicate any symptoms associated with coronavirus-19. Ebola Screen: Patient denies travel to an Ebola-affected area in the 21 days before illness onset. Initial Sepsis Screen: Does the patient meet any 2 criteria? No. Patient's initial sepsis screen is negative. Does the patient have a suspected source of infection? No. Patient's initial sepsis screen is negative. Risk Assessment: Do you want to hurt yourself or someone else? Patient reports no desire to harm self or others. Onset of symptoms was January 16, 2021. 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 - Social history:: Smoking status: Reported history of juuling and/or vaping. Patient denies any tobacco usage or history of. Screenin:45 Abuse screen: Denies threats or abuse. Denies injuries from another. Nutritional ca1 screening: No deficits noted. Tuberculosis screening: No symptoms or risk factors identified. Fall Risk IV access (20 points). Assessment: 15:45 General: Appears in no apparent distress. comfortable, Behavior is calm, cooperative, ca1 appropriate for age. Pain: Complains of pain in right scapular area, right subscapular area, right mid back, right low back and chest Pain does not radiate. Pain currently is 6 out of 10 on a pain scale. Pain began 2 weeks Is intermittent. Neuro: Level of Consciousness is awake, alert, obeys commands, Oriented to person, place, time, situation. Cardiovascular: Heart tones S1 S2 present Capillary refill < 3 seconds Patient's skin is warm and dry. Rhythm is sinus rhythm. Respiratory: Airway is patent Respiratory effort is even, unlabored, Respiratory pattern is regular, symmetrical, Breath sounds are clear bilaterally. GI: Abdomen is flat, non-distended, Bowel sounds present X 4 quads. Abd is soft and non tender X 4 quads. : No signs and/or symptoms were reported regarding the genitourinary system. EENT: No signs and/or symptoms were reported regarding the EENT system. Derm: Skin is intact, is healthy with good turgor, Skin is pink, warm \T\ dry. Musculoskeletal: Circulation, motion, and sensation intact. Capillary refill < 3 seconds. 16:45 Reassessment: Patient appears in no apparent distress at this time. Patient and/or ca1 family updated on plan of care and expected duration. Pain level reassessed. Patient is alert, oriented x 3, equal unlabored respirations, skin warm/dry/pink. 17:53 Reassessment: Patient appears in no apparent distress at this time. Patient and/or ca1 family updated on plan of care and expected duration. Pain level reassessed. Patient is alert, oriented x 3, equal unlabored respirations, skin warm/dry/pink. 18:55 Reassessment: Patient appears in no apparent distress at this time. Patient and/or ca1 family updated on plan of care and expected duration. Pain level reassessed. Patient is alert, oriented x 3, equal unlabored respirations, skin warm/dry/pink. Vital Signs: 15:30 BP 125 / 76; Pulse 94; Resp 17; Temp 97.7; Pulse Ox 95% ; Weight 68.49 kg; Height 5 ft. ll1 6 in. (167.64 cm); Pain 10/10; 16:45 BP 109 / 70; Pulse 71; Resp 16 S; Pulse Ox 98% on R/A; ca1 17:53 BP 112 / 63; Pulse 73; Resp 16 S; Pulse Ox 100% on R/A; ca1 18:55 BP 119 / 80; Pulse 62; Resp 16 S; Pulse Ox 99% on R/A; ca1 15:30 Body Mass Index 24.37 (68.49 kg, 167.64 cm) ll1 ED Course: 15:16 Patient arrived in ED. wm 15:32 Triage completed. ll1 15:33 Arm band placed on Patient placed in an exam room, on a stretcher. ll1 15:34 Rosa Isela Magaña RN is Primary Nurse. ca1 15:39 Bora Roach NP is PHCP. pm1 15:39 Yusuf Rubio MD is Attending Physician. pm1 15:45 Patient has correct armband on for positive identification. Bed in low position. Call ca1 light in reach. Side rails up X2. chef de cuisine on. Pulse ox on. NIBP on. Warm blanket given. 16:35 Initial lab(s) drawn, by me, sent to lab. Inserted saline lock: 22 gauge in right ca1 wrist, using aseptic technique. Blood collected. Patient maintains SpO2 saturation greater than 95% on room air. 19:22 CT Abd/Pelvis - IV Contrast Only In Process Unspecified. EDMS 19:30 Report given to MINE Vasquez. ca1 20:02 No provider procedures requiring assistance completed. IV discontinued, intact, jm8 bleeding controlled, No redness/swelling at site. Administered Medications: 17:40 Drug: Pepcid (famotidine) 20 mg Route: IVP; Site: right forearm; ca1 20:03 Follow up: Response: No adverse reaction jm8 17:42 Drug: Zofran (Ondansetron) 4 mg Route: IVP; Site: right forearm; ca1 20:03 Follow up: Response: No adverse reaction 8 17:45 Drug: morphine 4 mg {Note: rass 0.} Route: IVP; Site: right forearm; ca1 20:03 Follow up: Response: No adverse reaction jm8 Outcome: 19:51 Discharge ordered by . pm1 20:02 Discharged to home ambulatory. jm8 20:02 Condition: good 20:02 Discharge instructions given to patient, Instructed on discharge instructions, follow up and referral plans. Demonstrated understanding of instructions, follow-up care. 20:03 Patient left the ED. jm8 Signatures: Dispatcher [employer] EDMS Bora Roach NP M[employer] PURPOSE MACHINE OPERATOR pm1 Rosa Isela Magaña RN RN ca1 Juanita Parish, RN RN ll1 Pedro Acosta, RN RN jm8 Lanie Garzon
--- NOTE | 2021-01-30 19:52 | EDPHYS ---
Physician Documentation [facility] Name: Cheyanne Lopes Age: 25 yrs Sex: Female : 1995 Arrival Date: 01/30/2021 Time: 15:16 Bed 17 Private MD: ED Physician Yusuf Rubio HPI: 01/30 17:09 This 25 yrs old Black Female presents to ER via Ambulatory with complaints of Chest pm1 Pain. 17:09 The patient or guardian reports chest pain that is located primarily in the mid-sternal pm1 area. The pain does not radiate. Associated signs and symptoms: Pertinent positives: Abdominal pain for many months, Pertinent negatives: cough, dizziness, headache, shortness of breath. The chest pain is described as a pressure. Duration: The patient or guardian reports multiple episodes. Modifying factors: The symptoms are alleviated by nothing. the symptoms are aggravated by nothing. Severity of pain: in the emergency department the pain is unchanged. . Chest pain onset for 2 weeks and abdominal pain present for many months. 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 - Social history:: Smoking status: Reported history of juuling and/or vaping. Patient denies any tobacco usage or history of. ROS: 17:09 Constitutional: Negative for fever, chills, and weight loss, Eyes: Negative for injury, pm1 pain, redness, and discharge, ENT: Negative for injury, pain, and discharge, Neck: Negative for injury, pain, and swelling. 17:09 Respiratory: Negative for shortness of breath, cough, wheezing, and pleuritic chest pain. 17:09 Back: Negative for injury and pain, : Negative for injury, bleeding, discharge, and swelling, MS/Extremity: Negative for injury and deformity, Skin: Negative for injury, rash, and discoloration, Neuro: Negative for headache, weakness, numbness, tingling, and seizure. 17:09 Cardiovascular: Positive for chest pain, Negative for edema, palpitations. 17:09 Abdomen/GI: Positive for abdominal pain, constipation, Negative for nausea, vomiting, and diarrhea. Exam: 17:09 Constitutional: This is a well developed, well nourished patient who is awake, alert, pm1 and in no acute distress. Head/Face: Normocephalic, atraumatic. 17:09 Skin: Warm, dry with normal turgor. Normal color with no rashes, no lesions, and no evidence of cellulitis. MS/ Extremity: Pulses equal, no cyanosis. Neurovascular intact. Full, normal range of motion. 17:09 Eyes: Exam is negative for acute changes, Extraocular movements: no acute changes, Conjunctiva: normal, no injection. 17:09 ENT: Exam is negative for acute changes, Mouth: Lips: normal, Oral mucosa: normal, pink and intact, moist. 17:09 Chest/axilla: Palpation: tenderness, of the mid-sternal area, that totally reproduces the patient's complaints. 17:09 Cardiovascular: Exam negative for acute changes, Rate: normal, Rhythm: regular, Pulses: no pulse deficits are appreciated. 17:09 Respiratory: Exam negative for acute changes, respiratory distress, shortness of breath, Breath sounds: are clear throughout. 17:09 Abdomen/GI: Inspection: abdomen appears normal, Palpation: soft, in all quadrants, mild abdominal tenderness, in the right lower quadrant and left lower quadrant. 17:09 Back: pain, that is mild, of the right mid back and right low back, muscle spasm, is appreciated in the right mid back and right low back. 17:09 Neuro: Exam negative for acute changes, Orientation: is normal, Mentation: is normal, Motor: is normal, moves all fours. Vital Signs: 15:30 BP 125 / 76; Pulse 94; Resp 17; Temp 97.7; Pulse Ox 95% ; Weight 68.49 kg; Height 5 ft. ll1 6 in. (167.64 cm); Pain 10/10; 16:45 BP 109 / 70; Pulse 71; Resp 16 S; Pulse Ox 98% on R/A; ca1 17:53 BP 112 / 63; Pulse 73; Resp 16 S; Pulse Ox 100% on R/A; ca1 18:55 BP 119 / 80; Pulse 62; Resp 16 S; Pulse Ox 99% on R/A; ca1 15:30 Body Mass Index 24.37 (68.49 kg, 167.64 cm) ll1 MDM: 16:14 Patient medically screened. pm1 19:50 Data reviewed: vital signs. Data interpreted: Pulse oximetry: on room air is 99 %. pm1 Interpretation: normal. Counseling: I had a detailed discussion with the patient and/or guardian regarding: the historical points, exam findings, and any diagnostic results supporting the discharge/admit diagnosis, lab results, radiology results, the need for outpatient follow up, to return to the emergency department if symptoms worsen or persist or if there are any questions or concerns that arise at home. 01/30 16:08 Order name: Basic Metabolic Panel pm1 01/30 16:08 Order name: CBC with Diff pm1 01/30 16:08 Order name: LFT's pm01/30 16:08 Order name: Magnesium pm1 01/30 16:08 Order name: NT PRO-BNP pm1 01/30 16:08 Order name: PT-INR pm1 01/30 16:08 Order name: Troponin (emerg Dept Use Only) pm1 01/30 17:05 Order name: Protime (+INR); Complete Time: 17:29 EDMS 01/30 17:06 Order name: CBC with Automated Diff; Complete Time: 20:19 EDMS 01/30 17:10 Order name: Basic Metabolic Panel; Complete Time: 17:29 EDMS 01/30 17:10 Order name: Liver (Hepatic) Function; Complete Time: 17:29 EDMS 01/30 17:10 Order name: Troponin (Emerg Dept Use Only); Complete Time: 17:29 EDMS 01/30 17:10 Order name: NT PRO-BNP; Complete Time: 17:29 EDMS 01/30 17:10 Order name: Magnesium; Complete Time: 17:29 EDMS 01/30 16:08 Order name: XRAY Chest (1 view) pm1 01/30 16:08 Order name: EKG; Complete Time: 16:09 pm1 01/30 16:08 Order name: Cardiac monitoring; Complete Time: 16:21 pm1 01/30 16:08 Order name: EKG - Nurse/Tech; Complete Time: 16:20 pm1 01/30 16:08 Order name: IV Saline Lock; Complete Time: 16:35 pm1 01/30 16:08 Order name: Labs collected and sent; Complete Time: 16:35 pm1 01/30 16:08 Order name: O2 Per Protocol; Complete Time: 16:21 pm1 01/30 16:08 Order name: O2 Sat Monitoring; Complete Time: 16:21 pm1 01/30 16:54 Order name: RAD; Complete Time: 17:29 EDMS 01/30 19:03 Order name: CT Abd/Pelvis - IV Contrast Only; Complete Time: 19:43 pm1 01/30 19:59 Order name: CBC Smear Scan; Complete Time: 20:19 EDMS Administered Medications: 17:40 Drug: Pepcid (famotidine) 20 mg Route: IVP; Site: right forearm; ca1 20:03 Follow up: Response: No adverse reaction jm8 17:42 Drug: Zofran (Ondansetron) 4 mg Route: IVP; Site: right forearm; ca1 20:03 Follow up: Response: No adverse reaction jm8 17:45 Drug: morphine 4 mg {Note: rass 0.} Route: IVP; Site: right forearm; ca1 20:03 Follow up: Response: No adverse reaction jm8 Disposition: 01/30/21 19:51 Discharged to Home. Impression: Chest pain, unspecified, Unspecified abdominal pain. - Condition is Stable. - Discharge Instructions: Abdominal Pain, Adult, Nonspecific Chest Pain. - Medication Reconciliation Form, Thank You Letter, Antibiotic Education, Prescription Opioid Use form. - Follow up: Emergency Department; When: As needed; Reason: Worsening of condition. Follow up: Private Physician; When: 2 - 3 days; Reason: Recheck today's complaints, Continuance of care, Re-evaluation by your physician. - Problem is new. - Symptoms have improved. Signatures: Dispatcher [employer] EDMS Bora Roach NP WELDER FITTER pm1 Rosa Isela Magaña RN RN ca1 Juanita Parish RN RN ll1 Pedro Acosta RN RN jm8 Corrections: (The following items were deleted from the chart) 20:03 19:51 01/30/2021 19:51 Discharged to Home. Impression: Chest pain, unspecified; jm8 Unspecified abdominal pain. Condition is Stable. Forms are Medication Reconciliation Form, Thank You Letter, Antibiotic Education, Prescription Opioid Use. Follow up: Emergency Department; When: As needed; Reason: Worsening of condition. Follow up: Private Physician; When: 2 - 3 days; Reason: Recheck today's complaints, Continuance of care, Re-evaluation by your physician. Problem is new. Symptoms have improved. pm1
[2021-01-30 19:59] LABS: Anisocytosis 2+; Blood Morphology Comment NOTED (NOT SEEN); Platelet Estimate ADEQ; Poikilocytosis 2+; White Blood Cell Scan OK (OK)
[2021-01-30 20:36] VITALS: TEMP 97.7
[2021-01-30 20:41] VITALS: BP 119/80; O2SAT 99
--- NOTE | 2021-01-31 07:51 | EKG ---
Test Date: 2021-01-30 Test Time: 16:16:04 [employer] Officer: SEMAJ MEASUREMENT RESULTS: Intervals: Rate: 71 MS: 148 QRSD: 90 QT: 392 QTc: 425 [place]: P: 68 MS: 148 QRS: 78 T: 43 INTERPRETIVE STATEMENTS: Normal sinus rhythm with sinus arrhythmia Normal ECG Compared to ECG 11/29/2020 11:02:42 No significant changes Electronically Signed On 01-31-21 07:49:05 CDT by Mirza Aguirre
== END 2021-01-30 20:03 | disposition home or self-care (01) ==
LOC: ER 15:12
DX: R07.9 Chest pain, unspecified (principal); R10.9 Unspecified abdominal pain; F17.290 Nicotine dependence, other tobacco product, uncomplicated; F32.9 Major depressive disorder, single episode, unspecified; I10 Essential (primary) hypertension
CPT/HCPCS: 93005; 85025; 80048; 36415; 83735; 85610; 80076; 84484; 83880; 74177; 71045; 96375; 96374; 99285; Q9967; J2405

== ENCOUNTER 2021-07-23 16:30 | Emergency (ER) | payer OTHER ==
--- OUTSIDE RECORDS SUMMARY | 2021-07-23 16:34 | XMS REPORT | Continuity of Care Document ---
:1995 Author Organization [facility] t Address [address] [place] [address] Care Team Providers Name Role Phone SYSTEM, NOT IN Primary Care Physician Unavailable Shanta MARTINEZ Attending Clinician Unavailable Hussain SCOTT Attending Clinician Doctor Unassigned, Name Attending Clinician Unavailable HIWOT Attending Clinician Unavailable AUGUSTIN Attending Clinician Unavailable GWEN Attending Clinician Unavailable ANA Attending Clinician Unavailable Attending Clinician Unavailable MD MJ Attending Clinician Unavailable ORALIA Attending Clinician Unavailable Michael BOO Attending Clinician Unavailable Michael Boo NP Attending Clinician Akinsipe WHCNP, C Attending Clinician Shanta MARTINEZ Admitting Clinician Unavailable Admitting Clinician Unavailable MD MJ Admitting Clinician Unavailable Payers Payer Name Policy Type Policy Number Effective Date Expiration Date Memo CARDONA [id number] 2020 00:00:00 Advance Directives Directive Decision Effective Termination Comments Source Date Date Healthcare Agents on N/A [facility] ersity FileNameRelationshipHealthcare of [place] Agent Medical RelationshipCommunicationSMcLaren FlinttherFirelands Regional [facility] Care [phone] (Home) Problems Condition Condition Condition Status Onset Resolution Last Treating Co mments Source Name Details Category Date Date Treatment Clinician Date Family Family Disease Active Overview: Univer s history of history of 7-24 Formattin ity of breast breast 00:00: g of this [place] cancer cancer 00 note Medical might be Branch different from the original. Reports grandmoth er dx at age 44 Well woman Well woman Disease Active U nivers exam exam 6-05 ity of 00:00: [place] [address] Medical [place] Breast Breast Disease Active Univers pain pain 6-05 ity of 00:00: [place] [address] Medical [place] Disease Active Univers luteum luteum 6-05 ity of cyst or cyst or 00:00: [place] hematoma hematoma Medica l Branch Need for Need for Disease Active Unive rs HPV HPV 6-05 ity of vaccinatio vaccinatio 00:00: [place] 00 Medical Branch BMI BMI Disease Active Univers 26.0-26.9, 26.0-26.9, 6-05 it y of adult adult 00:00: [place] [facility] [place] Well woman Well woman Disease Active U nivers exam exam 6-05 ity of 00:00: [address] Allergies, Adverse Reactions, Alerts Allergy Allergy Status Severity Reaction(s) Onset Inactive Treating Comm ents Source Name Type Date Date Clinician NO KNOWN Drug Active Univers ALLERGIE Class ity of S [facility] NO KNOWN Allergy Active [facility] Social History Social Habit Start Date Stop Date Quantity Comments Source Exposure to Not sure [facility] SARS-CoV-2 [facility] (event) [place] Alcohol intake 2021-04-03 2021-04-03 Current drinker of Un iversity of 00:00:00 00:00:00 alcohol (finding) [facility] Tobacco use and 2021-04-03 2021-04-03 Never used Universit y of exposure 00:00:00 00:00:00 [facility] Alcohol Comment 2019-01-14 2019-01-14 occasional Universit y of 00:00:00 00:00:00 [facility] Sex Ass[birth year] At [birth year] Universit y of 00:00:00 00:00:00 [facility] Smoking Status Start Date Stop Date Source Never smoker [facility] Medications Ordered Filled Start Stop Current Ordering Indication Dosage Frequency Signature Comments Components Source Medication Medication Date Date Medication? Clinician (SIG) Name Name morpHINE 2019- 2020- No 4mg 4 mg, Slow Un annette injection 4 0-11 10-11 IV Push, ity of mg 17:45: 16:36 ONCE, 1 [place] 00 :00 dose, [facility] 05/22/20 Branch at 1245, STAT ketorolac 2019-08- No 30mg 30 mg, Unive rs (TORADOL) 0-11 10-11 Slow IV ity of injection 16:30: 15:39 Push, [place] 30 mg 00 :00 ONCE, 1 Medical dose, [facility] 05/22/20 at 1130, Routine
body team member approving Restricted medication : ADALID BOO cephALEXin 2019-08 2020- No 500mg Take 500 U nivers (KEFLEX) 0-11 10-11 mg by ity of 500 mg 16:27: 00:00 mouth 4 [place] capsule 49 :00 (four) Medical times Branch daily. cephALEXin Yes 500mg Take 500 Un annette (KEFLEX) 6-05 mg by ity of 500 mg 13:59: mouth 4 [place] capsule 29 (four) Medical times Branch daily. cephALEXin 2019 Yes 500mg Take 500 Un annette (KEFLEX) 6-05 mg by ity of 500 mg 13:59: mouth 4 [place] capsule 29 (four) Medical times Branch daily. norgestimat 2019 Yes [id number] 1{tbl} Take 1 Univers e-ethinyl 6-05 tablet by ity o f estradiol 00:00: mouth [place] (ORTHO 00 daily. Medical TRI-CYCLEN Branch , 28,) 0.18/0.215/ 0.25 mg-25 mcg tablet norgestimat 2019 Yes [id number] 1{tbl} Take 1 Univers e-ethinyl 6-05 tablet by ity o f estradiol 00:00: mouth [place] (ORTHO 00 daily. Medical TRI-CYCLEN Branch , 28,) 0.18/0.215/ 0.25 mg-25 mcg tablet norgestimat 2019 2020- No [id number] 1{tbl} Take 1 Univers e-ethinyl 6-05 10-11 tablet by ity of estradiol 00:00: 00:00 mouth [place] (ORTHO 00 :00 daily. [facility] TRICYCLE Branch , 28,) 0.18/0.215/ 0.25 mg-25 mcg tablet ibuprofen Yes TAKE 1 Univer s 800 mg 6-03 TABLET BY ity of tablet 00:00: MOUTH [place] 00 EVERY 12 Medical HOURS Branch NEEDED FOR PAIN CONTROL ibuprofen Yes TAKE 1 Univer s 800 mg 6-03 TABLET BY ity of tablet 00:00: MOUTH [place] 00 EVERY 12 Medical HOURS Branch NEEDED FOR PAIN CONTROL ibuprofen 2020- No TAKE 1 Unive rs 800 mg 6-03 10-11 TABLET BY ity of tablet 00:00: 00:00 MOUTH [place] 00 :00 EVERY 12 Medical HOURS Branch NEEDED FOR PAIN CONTROL No known No Univers medications ity [facility] [place] [facility] No known No Univers [facility] Immunizations Ordered Filled Immunization Date Status Comments [facility] e Immunization Name Name [facility] 2019-03-04 Completed University of 00:00:00 [place] [address] 2019-03-04 Completed University of 00:00:00 [facility] 2019-03-04 Completed University of 00:00:00 [facility] 2019-03-04 Completed University of 00:00:00 [facility] 2019-03-04 Completed University of 00:00:00 [facility] 2019-01-14 Completed University of 00:00:00 [facility] 2019-01-14 Completed University of 00:00:00 [facility] 2019-01-14 Completed University of 00:00:00 [facility] 2019-01-14 Completed University of 00:00:00 [facility] 2019-01-14 Completed University of 00:00:00 [facility] Vital Signs Vital Name Observation Time Observation Value Comments Source HEIGHT 2020-11-08 13:25:00 167.6 cm WEIGHT 2020-11-08 13:25:00 65.318 kg HEIGHT 2020-10-26 11:21:00 167.6 cm WEIGHT 2020-10-26 11:21:00 65.318 kg WEIGHT 2020-08-23 06:03:00 72.122 kg HEIGHT 2020-08-23 06:03:00 167.6 cm HEIGHT 2020-08-22 10:38:00 167.6 cm WEIGHT 2020-08-22 10:38:00 72.122 kg HEIGHT 2020-11-29 23:55:00 167.6 cm WEIGHT 2020-11-29 23:55:00 64.864 kg Systolic blood 2021-04-03 17:30:00 116 mm[Hg] Univer sity of pressure [facility] Diastolic blood 2021-04-03 17:30:00 58 mm[Hg] Unive rsity of pressure [facility] Heart rate 2021-04-03 17:30:00 62 /min Universi ty of [facility] Respiratory rate 2021-04-03 17:30:00 17 /min Univ ersity of [facility] Oxygen saturation in 2021-04-03 17:30:00 100 /min [facility] Arterial blood by [facility] Pulse oximetry Branch Body temperature 2021-04-03 16:14:00 37.17 Sheree Univ ersity of [facility] Body height 2021-04-03 16:14:00 167.6 cm Universi ty of [facility] Body weight 2021-04-03 16:14:00 73.483 kg Universi ty of [facility] BMI 2021-04-03 16:14:00 26.15 kg/m2 Universi ty of [facility] HEIGHT 2020-11-29 23:55:00 167.6 cm WEIGHT 2020-11-29 23:55:00 64.864 kg HEIGHT 2020-11-08 13:25:00 167.6 cm WEIGHT 2020-11-08 13:25:00 65.318 kg HEIGHT 2020-10-26 11:21:00 167.6 cm WEIGHT 2020-10-26 11:21:00 65.318 kg WEIGHT 2020-08-23 06:03:00 72.122 kg HEIGHT 2020-08-23 06:03:00 167.6 cm HEIGHT 2020-08-22 10:38:00 167.6 cm WEIGHT 2020-08-22 10:38:00 72.122 kg Systolic blood 2020-05-22 16:36:00 121 mm[Hg] Univer sity of pressure [facility] Diastolic blood 2020-05-22 16:36:00 85 mm[Hg] Unive rsity of pressure [facility] Heart rate 2020-05-22 16:36:00 62 /min Universi ty of [facility] Respiratory rate 2020-05-22 16:36:00 16 /min [facility] Oxygen saturation in 2020-05-22 16:36:00 100 /min University of Arterial blood by [facility] Pulse oximetry Branch Body temperature 2020-05-22 15:02:00 35.89 Sheree [facility] Body weight 2020-05-22 15:02:[address] [facility] BMI 2020-05-22 15:02:00 26.63 kg/m2 [facility] Systolic blood 2020-05-22 16:36:00 121 mm[Hg] Univer sity of pressure [facility] Diastolic blood 2020-05-22 16:36:00 85 mm[Hg] Unive rsity of [facility] Heart rate 2020-05-22 16:36:00 62 /min [facility] Respiratory rate 2020-05-22 16:36:00 16 /min [facility] Oxygen saturation in 2020-05-22 16:36:00 100 /min University of Arterial blood by [facility] Pulse oximetry [place] Body temperature 2020-05-22 15:02:00 35.89 Sheree [facility] Body weight 2020-05-22 15:02:[address] [facility] BMI 2020-05-22 15:02:00 26.63 kg/m2 [facility] Procedures Procedure Date / Time Performing Clinician Source Performed URINALYSIS 2021-04-03 16:46:00 [facility] LIPASE 2021-04-03 16:36:00 [facility] HEPATIC FUNCTION PANEL 2021-04-03 16:36:00 [facility] ([id number] (ALB,T.PRO,BILI [facility] T,BU/BC,ALT,AST,ALK PHOS) BASIC METABOLIC PANEL 2021-04-03 16:36:00 [facility] (NA, K, CL, CO2, Medical [place] GLUCOSE, BUN, CREATININE, CA) CBC WITH DIFF 2021-04-03 16:36:00 [facility] CONSENT/REFUSAL FOR 2021-04-03 16:08:40 Doctor Unassigned, No [facility] Name Medical [place] XR CHEST 1 VW 2020-05-22 15:46:02 Adalid Boo [facility] [place] [facility] COVID-19 (ID NOW RAPID 2020-05-22 15:32:00 Adalid Boo [facility] TESTING) Medical Branch LIPASE 2020-05-22 15:21:00 Oren Young [facility] TROPONIN I 2020-05-22 15:21:00 Oren Young [facility] COMP. METABOLIC PANEL 2020-05-22 15:21:00 Oren Young [facility] ([id number]) [facility] CBC WITH DIFF 2020-05-22 15:21:00 Oren Young [facility] PROTHROMBIN TIME / INR 2020-05-22 15:21:00 Oren Young [facility] D-DIMER 2020-05-22 15:21:00 Adalid Boo [facility] ACTIVATED PARTIAL 2020-05-22 15:21:00 Hector Oren [facility] THRMPLAS KHUSHBOO [facility] URINALYSIS 2020-05-22 15:21:00 Oren Young [facility] POCT TEST 2020-05-22 15:21:[address] [facility] EKG-12 LEAD 2020-05-22 15:08:07 Oren Young [facility] NOTICE OF PRIVACY 2020-05-22 14:53:53 Doctor Unassigned, No [facility] PRACTICES Name [facility] CONSENT/REFUSAL FOR 2020-05-22 14:52:25 Doctor Unassigned, No [facility] DIAGNOSIS AND TREATMENT Name [facility] Encounters Start End Encounter Admission Attending Care Care Encounter Source Date/Time Date/Time Type Type Clinicians Facility Department ID 2021-06-12 Emergency [facility] [id number] [facility] 2021-06-09 Emergency [facility] [id number] Univers 22:15:34 [facility] 2021-05-[address] [facility] Surgery [id number] [facility] 08:16:10 [place] 2021-05-[address] [facility] Surgery [id number] [facility] 22:29:12 [place] 2020-11-29 Inpatient ER JUAN [facility] [id number] [facility] 23:35:00 [facility] 2021-04-03 2021-04-03 Emergency Nixon, [facility] [id number] [facility] 11:16:00 13:07:00 Marli Addison 350.1.13.10 i ty of [place] 4[place]2.7.2.686 [place] [id number] [facility] 084 Branch 2021-04-03 2021-04-03 Orders Doctor ZORA [id number] [facility] 00:00:00 00:00:00 Only Unassigned, KIRA 350.1.13.10 [facility] 4.2.7.2.686 Biju [id number] [facility] 009 Branch 2020-11-21 2020-11-21 Emergency ER [facility] Emergency [id number] [facility] 15:47:00 15:47:00 2020-11-03 2020-11-03 Outpatient [facility] [id number] [facility] 00:00:00 00:00:00 2020-10-22 2020-10-22 Emergency RUFFIN, [place] [address] [id number] [place] 00:00:00 00:00:00 RADHA 545 Luizao di 2020-08-19 2020-08-19 Outpatient [facility] [id number] [facility] 00:00:00 00:00:00 2020-08-16 2020-08-16 Outpatient HIDALGO, [facility] [id number] [place] 00:00:00 00:00:00 SYEDA 745 Meth violet 2020-08-10 2020-08-10 Emergency PEREZ, [place] [address] [id number] [place] 00:00:00 00:00:00 ERLINDA 417 Method i 2020-07-21 2020-07-23 Inpatient BUNCH, [facility] [id number] [place] 00:00:00 00:00:00 SIDRAH 738 Method i 2020-07-12 2020-07-12 Outpatient GWEN, [facility] [id number] [place] 00:00:00 00:00:00 SYEDA [address] 2020-07-05 2020-07-05 Emergency TANYA BARTON [place] [id number] [place] 00:00:00 00:00:[address] 2020-05-22 2020-05-22 Outpatient R SHERMANADOLFO, [facility] [id number] [facility] 13:30:00 13:30:00 ADALID [id number] ity of [facility] 2020-05-22 2020-05-22 Emergency [facility] [id number] [facility] 10:05:00 12:50:00 Adalid Addison 350.1.13.10 ity [facility] 4.2.7.2.686 [facility] [id number] [address] 2020-05-22 2020-05-22 Emergency [facility] [id number] 10:05:00 12:50:00 Adalid Addison 350.1.13.10 [place] 4.2.7.2.686 [place] [id number] [facility] 2020-05-22 2020-05-22 Orders Doctor ZORA [id number] [id number] [facility] 00:00:00 00:00:00 Only Unassigned, KIRA 350.1.13.10 ity of [facility] 4.2.7.2.686 Biju as [id number] [address] 2020-05-22 2020-05-22 Orders Doctor ZORA 1.2.840.114 [id number] 00:00:00 00:00:00 Only Unassigned, KIRA 350.1.13.10 [facility] 4.2.7.2.686 [id number] 2019-03-12 2019-03-[address] [facility] 1.2.840.114 [id number] [facility] 00:00:00 00:00:00 Lauren C [place] MATE 350.1.13.10 ity of [facility] 4.2.7.2.686 Biju as MATERNAL [id number] Med ical & CHILD [address] [place] [address] 2019-03-12 2019-03-[address] [facility] [id number] 00:00:00 00:00:00 Lauren C [place] MATE 350.1.13.10 REGIONAL 4.2.7.2.686 MATERNAL [id number] & CHILD [address] [place] [address] Results Test Description Test Time Test Comments Results Result Comments Source BASIC METABOLIC PANEL (NA, K, CL, CO2, GLUCOSE, BUN, 2021-03 17:09:54 CREATININE, CA) Test Item Value Reference Range Interpretation Comme nts NA (test code = 2461889025) 135 mmol/L 135-145 K (test code = 4905909809) 3.9 mmol/L 3.5-5.0 CL (test code = 6397436025) 104 mmol/L 98-108 CO2 TOTAL (test code = 28 mmol/L 23-31 9071439445) AGAP (test code = 6835856746) 2-16 BUN (test code = 6513477676) 11 mg/dL 7-23 GLUCOSE (test code = 8106172119) 96 mg/dL 70-110 CREATININE (test code = 0.55 mg/dL 0.50-1.04 8240909247) CALCIUM (test code = 4705181010) 8.9 mg/dL 8.6-10.6 eGFR (test code = 2401936840) mL/min/1.73m2 VERITO (test code = VERITO) Association of Glomerular Filtration Rate (GFR) and Staging of Kidney Disease* + +--------- + ----+| GFR (mL/min/1.73 m2) ?| With Kidney Damage ?| ?Without Kidney Damage+ +--- + +| ?>90 ?| ?Stage one ?| ? Normal ?+ +-------- + -----+| ?60-89 ?| ?Stage two ?| ? Decreased GFR ? + +--------- + ----+| ?30-59 ?| ?Stage three ?| ? Stage three ? + +--------- + ----+| ?15-29 ?| ?Stage four ? | ? Stage four ?+ +-------- + -----+| ?<15 (or dialysis) ? ?| ?Stage five ? | ? Stage five ?+ +-------- + -----+ *Each stage assumes the associated GFR level has been in effect for at least three months. ?Stages 1 to 5, with or without kidney disease, indicate chronic kidney disease. Notes: Determination of stages one and two (with eGFR >59mL/min/1.73 m2) requires estimation of kidney damage for at least three months as defined by structural or functional abnormalities of the kidney, manifested by either:Pathological abnormalities or Markers of kidney damage (including abnormalities in the composition of the blood or urine or abnormalities in imaging tests). [facility] [place] [facility] 17:09:39 Test Item Value Reference Range Interpretation Comments APPEARANCE (test code = Clear Clear 9344931314) COLOR (test code = Yellow Yellow 9523771539) PH (test code = 4.8-8.0 7498278066) SP GRAVITY (test code = 1.003-1.030 6220900860) GLU U QUAL (test code = Normal Normal 7336714994) BLOOD (test code = Negative Negative 6898425708) KETONES (test code = Negative Negative 3835747942) PROTEIN (test code = Negative Negative 2887-8) UROBILIN (test code = Normal Normal 8232344611) BILIRUBIN (test code = Negative Negative 2215872245) NITRITE (test code = Negative Negative 3091040036) LEUK MICHAEL (test code = Negative Negative 6271462299) RBC/HPF (test code = <1 See_Comment [Autom ated message] 4485454254) The system [employer] generated this result transmitted ref erence range: 0 - 3 HP F. The reference range was not used to int erpret this result as normal/abnormal . WBC/HPF (test code = <1 See_Comment [Autom ated message] 9718636652) The system [employer] generated this result transmitted ref erence range: 0 - 5 HP F. The reference range was not used to int erpret this result as normal/abnormal . BACTERIA (test code = Negative Negative 3870075844) MUCOUS (test code = Slight Negative LPF A 4927331669) SQ EPITH (test code = HPF 1606096522) Lab Interpretation (test Abnormal code = 59037-0) [facility] [place] [facility] PAN[facility] (77089) (ALB,T.PRO,BILI T,BU/BC,ALT,AST,ALK PHOS)2021-04-03 17:08:52 Test Item Value Reference Range Interpretation Comments TOTAL BILI (test code = 3016998653) 0.3 mg/dL 0.1-1.1 BILI UNCON (test code = 0753887057) 0.2 mg/dL 0.1-1.1 BILI CONJ (test code = 0114773754) 0.0 mg/dL 0.0-0.3 T PROTEIN (test code = 5511930745) 7.3 g/dL 6.3-8.2 ALBUMIN (test code = 1393604698) 4.1 g/dL 3.5-5.0 ALK PHOS (test code = 1487197689) 70 U/L 34-122 ALTv (test code = 1742-6) 18 U/L 5-35 AST(SGOT) (test code = 3110484850) 35 U/L 13-40 Lab Interpretation (test code = Normal 17771-5) [facility] [place] [facility]2021-08-23 17:08:52 Test Item Value Reference Range Interpretation Comments LIPASE (test code = 4286781973) 18 U/L 0-220 Lab Interpretation (test code = Normal 39116-5) [facility] WITH [id number] 16:51:50 Test Item Value Reference Range Interpretation Comments WBC (test code = See_Comment [Automated 9890-2) message] The sy stem which generated this result transmitted reference range : 4.30 - 11.10 10*3/?L. The reference range was not used to interpret this result as normal/abnormal . RBC (test code = See_Comment [Automated 259-8) message] The sy stem which generated this result transmitted reference range : 3.93 - 5.25 10*6/?L. The reference range was not used to interpret this result as normal/abnormal . HGB (test code = 11.5 g/dL 11.6-15.0 L 718-7) HCT (test code = 37.6 % 35.7-45.2 4544-3) MCV (test code = 76.6 fL 80.6-95.5 L 787-2) MCH (test code = 23.4 pg 25.9-32.8 L 785-6) MCHC (test code = 30.6 g/dL 31.6-35.1 L 786-4) RDW-SD (test code = 39.4 fL 39.0-49.9 15910-1) RDW-CV (test code = 14.4 % 12.0-15.5 788-0) PLT (test code = See_Comment [Automated 777-3) message] The sy stem which generated this result transmitted reference range : 166 - 358 10*3/ ?L. The reference r ryann was not used to interpret this result as normal/abnormal . MPV (test code = 9.8 fL 9.5-12.9 85290-4) NRBC/100 WBC (test See_Comment [Automat ed code = 1953800590) message] The system which generated this result transmitted reference range : 0.0 - 10.0 /100 WBCs. The refer ence range was not u sed to interpret th is result as normal/abnormal . NRBC x10^3 (test code <0.01 See_Comment [Auto mated = 7007378801) message] The s ystem which generated this result transmitted reference range : 10*3/?L. The reference range was not used to interpret this result as normal/abnormal . GRAN MAT (NEUT) % 54.3 % (test code = 770-8) IMM GRAN % (test code 0.20 % = 8266686214) LYMPH % (test code = 33.6 % 736-9) MONO % (test code = 8.6 % 5905-5) EOS % (test code = 2.2 % 713-8) BASO % (test code = 1.1 % 706-2) GRAN MAT x10^3(ANC) 2.46 10*3/uL 1.88-7.09 (test code = 6114714629) IMM GRAN x10^3 (test <0.03 0.00-0.06 code = 2449529747) LYMPH x10^3 (test code 1.52 10*3/uL 1.32-3.29 = 731-0) MONO x10^3 (test code 0.39 10*3/uL 0.33-0.92 = 742-7) EOS x10^3 (test code = 0.10 10*3/uL 0.03-0.39 711-2) BASO x10^3 (test code 0.05 10*3/uL 0.01-0.07 = 704-7) Lab Interpretation Abnormal (test code = 58668-1) [facility] [place] [facility]COMPREHENSIVE METABOLIC [id number] 02:06:00 Test Item Value Reference Range Interpretation [...] S NOT APPLICABLE FOR DIALYSIS PATIEN TS. Scrap Baler ID - JUSTINOperator ID - JUSTINOperator ID - JUSTINOperator ID - JUSTINOperator ID - JUSTINOperator ID - JUSTINOperator ID - JUSTINOperator ID - JUSTINOperator ID - JUSTINOperator ID - JUSTINOperator ID - JUSTINOperator ID - JUSTINOperator ID - JUSTINOperator ID - JUSTINOperator ID - JUSTINOperator ID - JUSTINOperator ID - JUSTINOperator ID - JUSTINOperator ID - JUSTINCBC W/PLT COUNT & AUTO [id number] 01:38:00 Test Item Value Reference Range Interpretation [...] 0-0 PERCENT (BEAKER) (test code = 2801) CT, [id number] 20:33:00Unlisted Reason for Exam - Click Yes and Enter Reason Below->NoWill this procedure require oral contrast?->No [facility] CENTERName: RUFINO CALLAHAN : 1995 Sex: FFINAL [...] MDReport Verified Date/Time: 11/21/2020 20:33:54 Reading Location: [facility] B1 C013W Consult Reading Room COMPREHENSIVE METABOLIC [id number] 18:33:00 Test Item Value Reference Range Interpretation [...] S NOT APPLICABLE FOR DIALYSIS PATIEN TS. Scrap Baler ID - JUSTINOperator ID - JUSTINOperator ID - JUSTINOperator ID - JUSTINOperator ID - JUSTINOperator ID - JUSTINOperator ID - JUSTINOperator ID - JUSTINOperator ID - JUSTINOperator ID - JUSTINOperator ID - JUSTINOperator ID - JUSTINOperator ID - JUSTINOperator ID - JUSTINOperator ID - JUSTINOperator ID - [id number] 18:33:00 Test Item Value Reference Range Interpretation Comments LIPASE (BEAKER) (test code = 749) 8 U/L 6-51 Scrap Baler ID - JUSTINOperator ID - JUSTINOperator ID - JUSTINOperator ID - KENDRICK CBC W/PLT COUNT & AUTO [id number] 18:16:00 Test Item Value Reference Range Interpretation [...] 0-0 PERCENT (BEAKER) (test code = 2801) URINALYSIS W/ [id number] 18:13:00 Test Item Value Reference Range Interpretation [...] = 2795) RAD, CHEST, 1 VIEW, NON [id number] 16:45:00Reason for exam:->fever and abdominal painShould this be performed at the bedside?->Yes [facility] CENTERName: RUFINO CALLAHAN : 1995 Sex: FFINAL REPORT CHEST AP PORTABLE History provided: Fever, abdominal pain Radiographically normal-appearing heart and lungs. Signed: Daniella Onofre MDReport Verified Date/Time: 11/21/2020 16:45:24 Reading Location: [facility] [address] Radiology Reading Room TISSUE [id number] 15:53:00Surgical Pathology Report Case: [id number] Authorizing Provider: Beatriz Martinez MD Collected: 11/08/2020 04:08 PM Ordering Location: [facility] Received: 11/09/2020 08:07 AM SERVICES Pathologist: Gwen Velez MD Specimen: Uterus w/Cervix & Bilateral Fallopian Tubes, UTERUS, CERVIX AND BILATERAL FALLOPIAN TUBES. UTERUS WITH CERVIX AND BILATERAL FALLOPIAN TUBES, HYSTERECTOMY AND BILATERAL SALPINGECTOMY:ENDOMETRIUM: - PROLIFERATIVE ENDOMETRIUMMYOMETRIUM: - NO SIGNIFICANT PATHOLOGIC ALTERATIONRIGHT FALLOPIAN TUBE: - PARATUBALCYSTLEFT FALLOPIAN TUBE: - NO SIGNIFICANT PATHOLOGIC ALTERATIONMG/pl Signing Pathologist Direct Phone Line: [phone] signed by Gwen Velez MD on 11/10/2020 at 3:53 [id number] or frequent menstruationUterus, cervix, and bilateral fallopian [...] with 0.5 cm in diameter. The right fallopian tube has a paratubal cyst (0.5 x [...] submitted along with right paratubal cyst; A6, vendor representatives cross sections of right fallopian tube; A7, left fimbriated, entirely submitted; A8, vendor representatives cross sections of left fallopian tube. MG/pl Performed [facility], Department of Pathology, [address] [place] [address], Tel [facility], Department of Pathology, [address] [place] [address], [facility], [facility], [address] [place] [address], SARS-COV2/INFLUENZA/RSV [id number] 20:30:00 Test Item Value Reference Range Interpretation Comments SARS-COV2/RT-PCR Positive Negative AA (test code = 3496852) INFLUENZA A RT-PCR Negative Negative (test code = 0531465) INFLUENZA B RT-PCR Negative Negative (test code = 7682431) RSV RT-PCR (test Negative Negative Performanc e of the Xpert code = 7703402) Xpress SARS- CoV-2/Flu/RSV test has only b [...] iological data, and other data available to th e clinician evalu ating the patient. Inval [...] sooner.Fact She et for Healthcare Prov iders: https://www.Foodem.Calvin/D ocuments/Xpert% 20Xpress%2 6TZRY-JvD-5-Flu -RSV/302-4 508%20Rev.%20B% 20HCP%20Fa ct%20Sheet.pdfF act Sheet for Healthcare Patients: https://www.Foodem.Calvin/D ocuments/Xpert% 20Xpress%2 1BNYQ-PmQ-9-Flu -RSV/302-4 507%20Rev.%20B% 20Patient% 20Fact%20Sheet. pdf SCREEN, [id number] 13:18:00 Test Item Value Reference Range Interpretation Comments TEST URINE (BEAKER) (test Negative code = 583) BASIC METABOLIC [id number] 15:01:00 Test Item Value Reference Range Interpretation [...] S NOT APPLICABLE FOR DIALYSIS PATIEN TS. Scrap Baler ID - [id number] ID - [id number] ID - [id number] ID - [id number] ID - [id number] ID - [id number] ID - [id number] ID - cubd79Cmstybdw ID - [id number] ID - [id number] ID - [id number] ID - [id number] ID - [id number] W/PLT COUNT & AUTO [id number] 14:33:00 Test Item Value Reference Range Interpretation [...] 0-0 PERCENT (BEAKER) (test code = 2801) TISSUE [id number] 09:31:00Surgical Pathology Report Case: [id number] Authorizing Provider: Beatriz Martinez MD Collected: 08/23/2020 08:08 AM Ordering Location: [facility] [place] [facility] Received: 08/23/2020 11:27 AM SERVICES Pathologist: Gwen Velez MD Specimens: A) - Curettings, Endocervical B) - Curettings, Endometrial A. ENDOCERVIX, CURETTINGS: - BENIGN ENDOCERVICAL MUCOSAB. ENDOMETRIUM, CURETTINGS: - ENDOMETRIAL POLYP - BACKGROUND PROLIFERATIVE ENDOMETRIUM Signing Pathologist Direct Phone Line: [phone] signedby Gwen Velez MD on 08/24/2020 at 9:31 [id number] [id number] abdominal pain A. Curettings endocervical; B. Currettings, [...] also submitted into B1. MG/pl A-B: Performed [facility], Department of Pathology, [address] [place] [address], [facility], [address] [place] [address], [facility], [facility], [facility] [place] [address], HHFPHZVBM SCREEN, [id number] 06:27:00 Test Item Value Reference Range Interpretation Comments TEST URINE (BEAKER) (test Negative code = 583) SARS-COV2/RT-PCR ([facility])2020-08-20 07:08:00 Test Item Value Reference Range Interpretation Comments SARS-COV2/RT-PCR (test Negative Not Detected, Negative, code = 4500895) See external report for linked test SARS-COV-2 PERFORMING LAB [facility] (test code = 2868645) Negative result for this test determines that [...] the Stevenson SARS-CoV-2 assay.Fact Sheet for Healthcare Providers:https://www.Guess Your Songs.stevenson/lucía/ FH_LFMC-PlM-4_PLB_Gukw_Hevgp_93-312756.pdfFact Sheet for Healthcare Patients:https://www.Guess Your Songs.Flitto darryl/lucía/ZW_LHWI-KcV-8_Zxkzyhp_Qqaw_Sokyv_CZ_82-624463I9.pdfPerforming Laboratory:[facility] [place] [address] BASIC METABOLIC [id number] 11:08:00 Test Item Value Reference Range Interpretation [...] 1092) DATA TO CALCULA TE ESTIMATED GFR. Scrap Baler ID - LITOOperator ID - LITOOperator ID - LITOOperator ID - LITOOperator ID - LITOOperator ID - LITOOperator ID - LITOOperator ID - LITOOperator ID - LITOOperator ID - LITOOperator ID - LITOOperator ID - LITOOperator ID - LITOCBC W/PLT COUNT & AUTO [id number] 10:57:00 Test Item Value Reference Range Interpretation [...] 0-0 PERCENT (BEAKER) (test code = 2801) SARS-CoV-2 (COVID-19) RNA [Presence] in Respiratory specimen by KATIE with probe [id number] 03:49:53 Test Item Value Reference Range Interpretation Comments SARS-CoV-2 (COVID-19) RNA Not detected Not-Detected [Presence] in Respiratory specimen by KATIE with probe detection (test code = 24496-4) XR CHEST 1 [id number] 16:18:43 No acute cardiopulmonary abnormality. Preliminary Report Dictated by Resident: Salvador Mtz MD., have reviewed this study and agree with the abovereport.XR CHEST 1 VW Comparison: None available History: chest pain Technique: Frontal radiograph Findings: The lungs are clear. No pleural effusion, focal consolidation, orpneumothorax is identified. The cardiomediastinal silhouette is normal in size. No acute osseous abnormality is present. [facility], Radiant Results Inft User - 05/22/2020 11:19 AM CDTXR CHEST 1 VWComparison: None availableHistory: chest pain Technique: Frontal radiographFindings:The lungs are clear. No pleural effusion, focal consolidation, orpneumothorax isidentified. The cardiomediastinal silhouette is normal in size. No acute osseous abnormality is present.IMPRESSIONNo acute cardiopulmonary abnormality.Preliminary Report Dictated by Resident: Salvador Rosales MD., have reviewed this study and agree with the abovereport.[facility] TROPONIN [id number] 16:03:00 Test Item Value Reference Range Interpretation Comments TROPONIN I (test <0.012 See_Comment [Automated code = 1592811708) message] The system which generated this result transmitted reference range : <=0.034 ng/mL. The reference range was not used to interpr et this result as normal/abnormal . VERITO (test code = Equal or Less than VERITO) 0.034 ng/ml---Normal ?Note: Cardiac troponin begins to rise 3-4 hours after the onset of ischemia. Repeat in 4-6 hours if the sample was drawn within 3-4 hours of the onset of the symptom and found normal. Between 0.035 and 0.120 ng/mL--- Borderline. Questionable myocardial injury or necrosis ? ?Note: Serial measurement may be necessary to confirm or exclude the diagnosis of myocardial injury or necrosis; Clinical correlation (symptoms, EKGs, imaging studies, and others) required; Repeat in 4-6 hours if clinically indicated. ? Equal or Higher than 0.121 ng/mL---Abnormal. Myocardial Injury or Necrosis Likely ? Biotin has been reported to cause a negative bias, interpret results relative to patient's use of biotin. ? Lab Interpretation Normal (test code = 72292-0) [facility] CampusD-[id number] 16:00:00 Test Item Value Reference Interpretation Comments Range D-DIMER (test code = See_Comment H [Autom ated 5379970551) message] The system which generated this result transmitted reference range : <0.41 ?g/mL (FEU). The reference range was not used to interpret this result as normal/abnormal . VERITO (test code = This test may be VERITO) used in conjunction with a clinical pretest probability (PTP) assessment model to exclude venous thromboembolism (VTE) in patients suspected of deep venous thrombosis (DVT) and pulmonary embolism (PE) A D-Dimer value less than 0.50 ?g/ml (FEU) has a negative predicative value of [...] the clinical context, in forming a diagnosis. Lab Interpretation Abnormal (test code = 35175-1) [facility] CampusCOVID-19 (ID NOW RAPID TESTING)2020-05-22 16:00:00 Test Item Value Reference Range Interpretation Comments SARS-CoV-2 Rapid ID NOW Not Detected Not Detected (test code = 45415-5) VERITO (test code = VERITO) ID NOW COVID-19 Assay is an isothermal nucleic acid amplification test intended for the qualitative detection of nucleic acid from SARS-CoV-2 viral RNA in nasopharyngeal (PHARMACY AIDE) specimens. It is used under Emergency Use Authorization (EUA) by FDA. The limit of detection (LOD) of the assay is 125 Genome Equivalents/mL. A positive result is indicative of the presence of SARS-CoV-2 RNA. ?Clinical correlation with patient history and other diagnostic [...] for repeat patient testing if clinically indicated. Lab Interpretation Normal (test code = 10418-5) [facility] CampusaPTT2020-10-11 15:53:00 Test Item Value Reference Range Interpretation Comments APTT Patient (test See_Comment [Automat ed code = 3173-2) message] The system which generated this result transmitted reference range : 23 - 38 Seconds . The reference range was not used to interpr et this result as normal/abnormal . VERITO (test code = VERITO) The [facility] patient population mean normal value for aPTT is 30 seconds. Lab Interpretation Normal (test code = 90458-8) [facility] CampusCOMP. METABOLIC PANEL (08946)2020-05-22 15:52:00 Test Item Value Reference Range Interpretation Comments NA (test code = 138 mmol/L 135-145 4365421793) K (test code = 3.7 mmol/L 3.5-5 7067955755) CL (test code = 102 mmol/L 98-108 6081748173) CO2 TOTAL (test code = 29 mmol/L 23-31 3281776228) AGAP (test code = 2-16 0100620505) BUN (test code = 7 mg/dL 7-23 3837171596) GLUCOSE (test code = 65 mg/dL 70-110 L 6951302513) CREATININE (test code = 0.70 mg/dL 0.5-1.04 1475124209) TOTAL BILI (test code = 0.4 mg/dL 0.1-1.9 8104093199) CALCIUM (test code = 9.3 mg/dL 8.6-10.6 1439477730) T PROTEIN (test code = 7.8 g/dL 6.3-8.2 4622579248) ALBUMIN (test code = 4.2 g/dL 3.5-5 4919578819) ALK PHOS (test code = 79 U/L 34-122 5685127328) ALTv (test code = 12 U/L 5-35 1742-6) AST(SGOT) (test code = 25 U/L 13-40 9330654700) eGFR Calculation mL/min/1.73m2 (Non-) (test code = 8550348537) eGFR Calculation mL/min/1.73m2 () (test code = 7849930449) VERITO (test code = VERITO) Association of Glomerular Filtration Rate (GFR) and Staging of Kidney Disease* + --+ --+ ------+| GFR (mL/min/1.73 m2) ?| With Kidney Damage ?| ?Without Kidney Damage+ --------+ --------+ +| ?>90 ?| ?Stage one ?| ? Normal ?+ ---+ ---+ -------+| ?60-89 ?| ?Stage two ?| ? Decreased GFR ? + --+ --+ ------+| ?30-59 ?| ?Stage three ?| ? Stage three ? + --+ --+ ------+| ?15-29 ?| ?Stage four ? | ? Stage four ?+ ---+ ---+ -------+| ?<15 (or dialysis) ? ?| ?Stage five ? | ? Stage five ?+ ---+ ---+ -------+ *Each stage assumes the associated GFR level has been in effect for at least three months. ?Stages 1 to 5, with or without kidney disease, indicate chronic kidney disease. Notes: Determination of stages one and two (with eGFR >59mL/min/1.73 m2) requires estimation of kidney damage for at least three months as defined by structural or functional abnormalities of the kidney, manifested by either:Pathological abnormalities or Markers of kidney damage (including abnormalities in the composition of the blood or urine or abnormalities in imaging tests). Lab Interpretation Abnormal (test code = 03788-4) [facility] [id number] 15:51:00 Test Item Value Reference Range Interpretation Comments APPEARANCE (test code = Clear Clear 1349539517) COLOR (test code = Straw Yellow A 4712665485) PH (test code = 4.8-8.0 1528009521) SP GRAVITY (test code = 1.003-1.030 6275713155) GLU U QUAL (test code = Normal Normal 8911658173) BLOOD (test code = Negative Negative 2239716446) KETONES (test code = Negative Negative 0780568652) PROTEIN (test code = Negative Negative 2887-8) UROBILIN (test code = Normal Normal 7038405566) BILIRUBIN (test code = Negative Negative 9447829034) NITRITE (test code = Negative Negative 6120399123) LEUK MICHAEL (test code = Negative Negative 8541176012) RBC/HPF (test code = See_Comment [Autom ated message] 0075526876) The system StrikeAd generated this result transmitted ref erence range: 0 - 3 HP F. The reference range was not used to int erpret this result as normal/abnormal . WBC/HPF (test code = <1 See_Comment [Autom ated message] 2830678376) The system StrikeAd generated this result transmitted ref erence range: 0 - 5 HP F. The reference range was not used to int erpret this result as normal/abnormal . BACTERIA (test code = Negative Negative 3814726596) SQ EPITH (test code = HPF 4855378810) Lab Interpretation (test Abnormal code = 46291-3) [facility] CampusPROTHROMBIN TIME / [id number] 15:51:00 Test Item Value Reference Range Interpretation Comments PROTIME PATIENT (test See_Comment [Auto mated message] code = 5964-2) The system latakoo generated this result transmitted ref erence range: 12.0 - 1 4.7 Seconds. The re ference range was not u sed to interpret this result as normal/abnor mal. INR (test code = 6301-6) Nor mal INR <1.1; Warfarin Therap eutic range 2.0 to 3. 0 or 2.5 to 3.5, dep ending upon the indica tions. Lab Interpretation (test Normal code = 06138-3) [facility] CampusLIPASE, [id number] 15:51:00 Test Item Value Reference Range Interpretation Comments LIPASE (test code = 2679584998) 32 U/L 0-220 Lab Interpretation (test code = Normal 17617-6) [facility] WITH [id number] 15:40:00 Test Item Value Reference Range Interpretation Comments WBC (test code = See_Comment [Automated 6690-2) message] The sy stem which generated this result transmitted reference range : 4.30 - 11.10 10*3/?L. The reference range was not used to interpret this result as normal/abnormal . RBC (test code = See_Comment [Automated 789-8) message] The sy stem which generated this result transmitted reference range : 3.93 - 5.25 10*6/?L. The reference range was not used to interpret this result as normal/abnormal . HGB (test code = 9.3 g/dL 11.6-15 L 718-7) HCT (test code = 32.9 % 35.7-45.2 L 4544-3) MCV (test code = 66.9 fL 80.6-95.5 L 787-2) MCH (test code = 18.9 pg 25.9-32.8 L 785-6) MCHC (test code = 28.3 g/dL 31.6-35.1 L 786-4) RDW-SD (test code = 41.2 fL 39-49.9 89449-2) RDW-CV (test code = 17.3 % 12-15.5 H 788-0) PLT (test code = See_Comment [Automated 777-3) message] The sy stem which generated this result transmitted reference range : 166 - 358 10*3/ ?L. The reference r ryann was not used to interpret this result as normal/abnormal . MPV (test code = 9.8 fL 9.5-12.9 92338-4) NRBC/100 WBC (test See_Comment [Automat ed code = 8019318820) message] The system which generated this result transmitted reference range : 0.0 - 10.0 /100 WBCs. The refer ence range was not u sed to interpret th is result as normal/abnormal . NRBC x10^3 (test code <0.01 See_Comment [Auto mated = 5958599221) message] The s ystem which generated this result transmitted reference range : 10*3/?L. The reference range was not used to interpret this result as normal/abnormal . GRAN MAT (NEUT) % 50.9 % (test code = 770-8) IMM GRAN % (test code 0.20 % = 8259554839) LYMPH % (test code = 33.3 % 736-9) MONO % (test code = 8.4 % 5905-5) EOS % (test code = 5.4 % 713-8) BASO % (test code = 1.8 % 706-2) GRAN MAT x10^3(ANC) 2.55 10*3/uL 1.88-7.09 (test code = 4531077989) IMM GRAN x10^3 (test <0.03 0-0.06 code = 7251106448) LYMPH x10^3 (test code 1.67 10*3/uL 1.32-3.29 = 731-0) MONO x10^3 (test code 0.42 10*3/uL 0.33-0.92 = 742-7) EOS x10^3 (test code = 0.27 10*3/uL 0.03-0.39 711-2) BASO x10^3 (test code 0.09 10*3/uL 0.01-0.07 H = 704-7) Lab Interpretation Abnormal (test code = 80133-4) [facility] CampusPOCT [id number] 15:21:00 Test Item Value Reference Range Interpretation Comments POCT PREG (test code = 1605) negative On board controls acceptable with present C Line (test code = 3574) POCT PREG LOT # (test code = 3575) [id number] POCT PREG TEST DATE (test 2021-04-11 code = 3576) Lab Interpretation (test code = Normal 43368-6) [facility]
[2021-07-23 17:28] LABS: Absolute Lymphocytes (CBC) 1.5 K/uL (0.7-4.9); Basophils % 1.3 % (0-1.3); Hematocrit 34.8 % (36.0-45.0); Lymphocytes % 27.9 % (15.3-44.8); MPV 8.4 fL (7.6-11.3); RBC Red Blood Cell Count 4.65 M/uL (3.86-4.86)
[2021-07-23 17:43] LABS: BUN Blood Urea Nitrogen 7 mg/dL (7-18); Bicarbonate 28 mmol/L (21-32); Glucose Level 77 mg/dL (74-106); Potassium 3.4 mmol/L (3.5-5.1); Sodium Level 142 mmol/L (136-145)
--- NOTE | 2021-07-23 18:25 | ER ---
Nurse's Notes [facility] Name: Cheyanne Lopes Age: 26 yrs Sex: Female : 1995 Arrival Date: 07/23/2021 Time: 16:31 Bed 5 Private MD: Diagnosis: Diarrhea, unspecified Presentation: 07/23 16:59 Chief complaint: Patient states: feels weak, dizzy X 4 days. gets light headed when she iw stands and her body hurts, is having diarrhea, no fever or chills, has hx of anemia. Coronavirus screen: At this time, the client does not indicate any symptoms associated with coronavirus-19. Ebola Screen: Patient negative for fever greater than or equal to 101.5 degrees Fahrenheit, and additional compatible Ebola Virus Disease symptoms Patient denies exposure to infectious person. Patient denies travel to an Ebola-affected area in the 21 days before illness onset. No symptoms or risks identified at this time. Initial Sepsis Screen: Does the patient meet any 2 criteria? No. Patient's initial sepsis screen is negative. Does the patient have a suspected source of infection? No. Patient's initial sepsis screen is negative. Risk Assessment: Do you want to hurt yourself or someone else? Patient reports no desire to harm self or others. Onset of symptoms was July 19, 2021. 16:59 Method Of Arrival: Ambulatory iw 16:59 Acuity: GERI 3 iw Triage Assessment: 17:15 Headache History: The patient has had previous headaches and this one is similar to bp previous episodes. General: Appears distressed, uncomfortable, Behavior is cooperative, appropriate for age, anxious. Pain: Complains of pain in head Pain currently is 6 out of 10 on a pain scale. Pain began 2-3 days ago. Also complains of nausea. EENT: No deficits noted. Neuro: Level of Consciousness is awake, alert, obeys commands, Oriented to Appropriate for age Bus Transportation Manager are equal bilaterally Reports dizziness, WITH STEADY GAIT weakness GENERALIZED. Cardiovascular: Rhythm is sinus rhythm. Respiratory: No deficits noted. GI: Reports nausea, vomiting. : No signs and/or symptoms were reported regarding the genitourinary system. Derm: No deficits noted. Musculoskeletal: No deficits noted. Historical: - Allergies: 17:00 No Known Allergies; iw - Home Meds: 17:00 Cyclobenzaprine Oral [Active]; iw - PMHx: 17:00 Anemia; Depression; High Blood Pressure; iw - PSHx: 17:00 Cholecystectomy; hysterectomy; iw - Immunization history:: Client reports receiving the 2nd dose of the Covid vaccine. - Social history:: Smoking status: Patient denies any tobacco usage or history of. Patient/guardian denies using alcohol, street drugs, The patient lives with family. - Family history:: not pertinent. Screenin:15 Abuse screen: Denies threats or abuse. Denies injuries from another. Nutritional bp screening: No deficits noted. Tuberculosis screening: No symptoms or risk factors identified. Fall Risk None identified. Assessment: 17:15 General: SEE TRIAGE NOTE. bp 18:52 Reassessment: Patient appears in no apparent distress at this time. Patient and/or iw family updated on plan of care and expected duration. Pain level reassessed. Patient is alert, oriented x 3, equal unlabored respirations, skin warm/dry/pink. Vital Signs: 16:59 BP 119 / 97; Pulse 77; Resp 16; Temp 98.3; Pulse Ox 100% on R/A; Weight 74.84 kg; iw Height 5 ft. 6 in. (167.64 cm); 16:59 Body Mass Index 26.63 (74.84 kg, 167.64 cm) iw ED Course: 16:31 Patient arrived in ED. as 17:00 Triage completed. iw 17:02 Arm band placed on. iw 17:14 Initial lab(s) drawn, by ED staff, sent to lab. Inserted saline lock: in left forearm, iw using aseptic technique. 17:15 Patient has correct armband on for positive identification. Bed in low position. Call bp light in reach. Side rails up X2. 17:57 Yusuf Rubio MD is Attending Physician. ma2 18:06 Jett Yuan, MINE is Primary Nurse. bp 18:52 No provider procedures requiring assistance completed. IV discontinued, intact, iw bleeding controlled, No redness/swelling at site. Pressure dressing applied. Administered Medications: 18:36 Drug: Ketorolac 30 mg Route: IVP; Site: left forearm; jh6 18:36 Drug: Reglan (metoCLOPramide) 20 mg Route: IVP; Site: left forearm; 6 Outcome: 18:24 Discharge ordered by MD. dye 18:53 Discharged to home ambulatory. iw 18:53 Condition: good 18:53 Discharge instructions given to patient, Instructed on discharge instructions, follow up and referral plans. medication usage, Demonstrated understanding of instructions, follow-up care, medications, Prescriptions given X 3. 18:53 Patient left the ED. iw Signatures: Selin Smalls Irene, RN RN Jett Yuan RN RN bp Alzahri, Mohammad, MD MD ma2 Osiris Coon RN RN 6
--- NOTE | 2021-07-23 18:25 | EDPHYS ---
Physician Documentation [facility] Name: Cheyanne Lopes Age: 26 yrs Sex: Female : 1995 Arrival Date: 07/23/2021 Time: 16:31 Bed 5 Private MD: ED Physician Yusuf Rubio HPI: 07/23 18:19 This 26 yrs old Black Female presents to ER via Ambulatory with complaints of Headache, ma2 Dizziness, Near Syncope, Weakness. 18:19 Onset: The symptoms/episode began/occurred gradually, 3 day(s) ago. ma2 18:22 Severity of symptoms: At its worst the pain was mild, in the emergency department the ma2 pain is unchanged. Patient has diarrhea for 2 days here with mild headache gradual, he was dehydrated mildly, no vomiting. No abdominal pain no pain anywhere.. Historical: - Allergies: 17:00 No Known Allergies; iw - Home Meds: 17:00 Cyclobenzaprine Oral [Active]; iw - PMHx: 17:00 Anemia; Depression; High Blood Pressure; iw - PSHx: 17:00 Cholecystectomy; hysterectomy; iw - Immunization history:: Client reports receiving the 2nd dose of the Covid vaccine. - Social history:: Smoking status: Patient denies any tobacco usage or history of. Patient/guardian denies using alcohol, street drugs, The patient lives with family. - Family history:: not pertinent. ROS: 18:22 Constitutional: Negative for fever, chills, and weight loss. ma2 18:22 All other systems are negative. Exam: 18:22 Constitutional: This is a well developed, well nourished patient who is awake, alert, ma2 and in no acute distress. ENT: Nares patent. No nasal discharge, no septal abnormalities noted. Tympanic membranes are normal and external auditory canals are clear. Oropharynx with no redness, swelling, or masses, exudates, or evidence of obstruction, uvula midline. Mucous membranes moist. Neck: Trachea midline, no thyromegaly or masses palpated, and no cervical lymphadenopathy. Supple, full range of motion without nuchal rigidity, or vertebral point tenderness. No Meningismus. Chest/axilla: Normal chest wall appearance and motion. Nontender with no deformity. No lesions are appreciated. Cardiovascular: Regular rate and rhythm with a normal S1 and S2. No gallops, murmurs, or rubs. Normal PMI, no JVD. No pulse deficits. Respiratory: Lungs have equal breath sounds bilaterally, clear to auscultation and percussion. No rales, rhonchi or wheezes noted. No increased work of breathing, no retractions or nasal flaring. Abdomen/GI: Soft, non-tender, with normal bowel sounds. No distension or tympany. No guarding or rebound. No evidence of tenderness throughout. Back: No spinal tenderness. No costovertebral tenderness. Full range of motion. Skin: Warm, dry with normal turgor. Normal color with no rashes, no lesions, and no evidence of cellulitis. MS/ Extremity: Pulses equal, no cyanosis. Neurovascular intact. Full, normal range of motion. Neuro: Awake and alert, GCS 15, oriented to person, place, time, and situation. Cranial nerves II-XII grossly intact. Motor strength 5/5 in all extremities. Sensory grossly intact. Cerebellar exam normal. Normal gait. Vital Signs: 16:59 BP 119 / 97; Pulse 77; Resp 16; Temp 98.3; Pulse Ox 100% on R/A; Weight 74.84 kg; iw Height 5 ft. 6 in. (167.64 cm); 16:59 Body Mass Index 26.63 (74.84 kg, 167.64 cm) iw MDM: 18:13 Patient medically screened. ma2 18:22 Differential diagnosis: migraine, sinusitis, uremia, gastroenterisit. Data reviewed: [facility] vital signs, nurses notes. Counseling: I had a detailed discussion with the patient and/or guardian regarding: the historical points, exam findings, and any diagnostic results supporting the discharge/admit diagnosis, the presence of at least one elevated blood pressure reading (>120/80) during this emergency department visit, the need for outpatient follow up. Response to treatment: the patient's symptoms have markedly improved after treatment. 07/23 17:02 Order name: CBC with Diff; Complete Time: 18:18 iw 07/23 17:02 Order name: Basic Metabolic Panel; Complete Time: 18:18 iw 07/23 17:02 Order name: Type And Screen iw 07/23 17:18 Order name: IV Saline Lock; Complete Time: 17:18 iw Administered Medications: 18:36 Drug: Ketorolac 30 mg Route: IVP; Site: left forearm; [facility] 18:36 Drug: Reglan (metoCLOPramide) 20 mg Route: IVP; Site: left forearm; [facility] Disposition Summary: 07/23/21 18:24 Discharge Ordered Location: Home ma2 Condition: Stable ma2 Diagnosis - Diarrhea, unspecified ma2 Followup: ma2 - With: Private Physician - When: Tomorrow - Reason: If symptoms return Discharge Instructions: - Discharge Summary Sheet ma2 - Diarrhea, Adult ma2 Forms: - Medication Reconciliation Form ma2 - Thank You Letter ma2 - Antibiotic Education ma2 - Prescription Opioid Use ma2 Prescriptions: - Reglan 10 mg Oral Tablet - take 1 tablet by ORAL route every 6 hours take 30 minutes before meals and at tn2 bedtime; 20 tablet; Refills: 0, Product Selection Permitted - Zofran 4 mg Oral Tablet - take 1 tablet by ORAL route every 12 hours As needed; 20 tablet; Refills: 0, ma2 Product Selection Permitted - Diclofenac Sodium 75 mg Oral Tablet Sustained Release - take 1 tablet by ORAL route 2 times per day; 30 tablet; Refills: 0, Product tn2 Selection Permitted Signatures: Dispatcher [employer] Lisa Miller RN RN Yusuf Rubio MD MD [facility] Osiris Coon RN RN [facility]
[2021-07-23] MEDS ORDERED: METOCLOPRAMIDE 10 MG/2mL INJ ONE (18:29)
[2021-07-23] MEDS ORDERED: KETOROLAC 30 MG/ML INJ ONE (18:30)
[2021-07-23 18:59] VITALS: BP 119/97; TEMP 98.3; O2SAT 100
== END 2021-07-23 18:53 | disposition home or self-care (01) ==
LOC: ER 16:30
DX: R19.7 Diarrhea, unspecified (principal)
CPT/HCPCS: 85025; 80048; 36415; 86900; 86850; 86901; 96375; 96374; 99284; J2765

== ENCOUNTER 2022-04-19 21:11 | Emergency (ER) | payer OTHER ==
--- OUTSIDE RECORDS SUMMARY | 2022-04-19 21:21 | XMS REPORT | Continuity of Care Document ---
:1995 Author Organization [facility] t Address [address] [place] [id number] Care Team Providers Name Role Phone SYSTEM, PROVIDER NOT IN Primary Care Physician Unavailable BEATRIZ MARTINEZ Attending Clinician Unavailable CAPO LOBO Attending Clinician Unavailable Capo Lobo DO Attending Clinician PETRONA PAN Attending Clinician Unavailable Petrona Pan DO Attending Clinician BEATRIZ MARTINEZ Attending Clinician Unavailable Beatriz Martinez Attending Clinician MAY MULLINS Attending Clinician Unavailable May Mullins MD Attending Clinician RAYMUNDO BORGES Attending Clinician Unavailable SINDHU MEDEIROS Attending Clinician Unavailable Raymundo Borges MD Attending Clinician [phone] Tiffanie Morgan MD Attending Clinician Sindhu Medeiros MD Attending Clinician Marli Ruiz Attending Clinician Doctor Unassigned, [place] Attending Clinician Unavailable KIMBERLY MI Attending Clinician Unavailable RADHA RUFFIN Attending Clinician Unavailable SYEDA HIDALGO Attending Clinician Unavailable ERLINDA PEREZ Attending Clinician Unavailable NOLA BUNCH Attending Clinician Unavailable MD YONATAN BARKER Attending Clinician Unavailable TANYA BARTON Attending Clinician Unavailable ANA BOO Attending Clinician Unavailable Ana Boo NP Attending Clinician Akinsipe WHLauren KHAN Attending Clinician [phone] BEATRIZ MARTINEZ Admitting Clinician Unavailable CAPO LOBO Admitting Clinician Unavailable BEATRIZ MARTINEZ Admitting Clinician Unavailable Beartiz Martinez Admitting Clinician TIFFANIE MORGAN NKLYNU Admitting Clinician Unavailable SINDHU MEDEIROS Admitting Clinician Unavailable NOLA BUNCH Admitting Clinician Unavailable MD YONATAN BARKER Admitting Clinician Unavailable Payers Payer Name Policy Type Policy Number Effective Date Expiration Date Memo escamilla [facility] [id number] 2020 00:00:00 CHRISTA SWEENEYR FROM [id number] 2020 [facility] 00:00:00 Problems Condition Condition Condition Status Onset Resolution Last Treating Co mments Source Name Details Category Date Date Treatment Clinician Date PELVIC AND PELVIC Diagnosis Active 2021-12-31 Memoria PERINEAL AND 12-04 15:31:00 l PAIN-R10.2 PERINEAL 00:00: Herm roni / OVARIAN PAIN-R10.2 00 / OVARIAN Active 12/04/2021 [facility] [place] Anemia Anemia Disease [facility] Constipati Constipati Disease Active [facility] Vaginal Vaginal Disease Active [facility] cuff [facility] cellulitis cellulitis 00:00: Me dical 00 Center Syncope Syncope Disease Active [facility] Excessive Excessive Disease Active [facility] frequent frequent 00:00: Medica l menstruati menstruati 00 Ce nter on on Cholecysti Cholecysti Disease Active 2019-08 M ethodi tis tis 2-12 st 00:00: Hospita 00 l Acute Acute Disease Active 2019-08 Methodi cholecysti cholecysti 2-10 st tis tis 00:00: Hospita 00 l Symptomati Symptomati Disease Active 2019-08 M ethodi c c 2-01 st cholelithi cholelithi 00:00: Ho spita asis asis 00 l Family Family Disease Active Overview: Univer s history of history of 7-24 Formattin ity of breast breast 00:00: g of this [place] cancer cancer 00 note Medical might be Branch different from the original. Reports grandmoth er dx at age 44 Well woman Well woman Disease Active U nivers exam exam 6-05 ity of 00:00: [place] 00 Medical Branch Breast Breast Disease Active Univers pain pain 6-05 ity of 00:00: [place] [address] Medical Branch Corpus [place] Disease Active Univers luteum luteum 6-05 ity of cyst or cyst or 00:00: [place] hematoma hematoma 00 Medica l Branch Need for Need for Disease Active Unive rs HPV HPV 6-05 ity of vacc[place] BMI BMI Disease Active 2019- Univers 26.0-26.9, 26.0-26.9, 6-05 it y of adult adult 00:00: [place] [facility] Well woman Well woman Disease Active 2019 U nivers exam exam 6-05 ity of 00:00: [place] 00 Medical Branch Pelvic and Pelvic Problem 2021-12-08 Memoria perineal and 22:13:17 l pain perineal [place] pain 12/08/2021 [place] Mixed Mixed Problem Resolve 2021-12-08 Mem oria anxiety anxiety d 22:13:17 l and and Toño depressive depressive disorder disorder (disorder) (disorder) Resolved Problem 12/08/2021 [facility] [place] Seizure Seizure Problem Resolve 2021-12-08 M emoria (finding) (finding) d 22:13:17 l Resolved [place] Problem 12/08/2021 [place] PELVIC AND PELVIC Diagnosis Active 2021-12-31 Memoria PERINEAL AND 15:31:00 l PAIN PERINEAL Toño PAIN Active [place] Allergies, Adverse Reactions, Alerts Allergy Allergy Status Severity Reaction(s) Onset Inactive Treating Comm ents Source Name Type Date Date Clinician NO KNOWN Allergy Active [facility] ALLERGIE S NO KNOWN Drug Active Univers ALLERGIE Class ity of S [place] [facility] Social History Social Habit Start Date Stop Date Quantity Comments Source History SDMO [facility] Alcohol Comment Medical C enter Exposure to 2022-02-17 2022-02-27 Not sure [facility] SARS-CoV-2 00:00:00 13:24:[address] [facility] [place] (event) [place] Social History 2021-12-04 2021-12-04 [facility] 20:06:54 20:06:54 Alcohol intake 2020-10-22 2020-10-22 Current drinker [facility] 00:00:00 00:00:00 of alcohol (finding) Tobacco use and 2020-08-22 2020-08-[address] [facility] [facility] exposure 00:00:00 00:00:00 Medical Center History [facility] 2020-08-16 2020-08-16 3 [facility] Alcohol Frequency 00:00:00 00:00:00 History SDMO 2020-08-16 2020-08-16 1 [facility] Alcohol Std 00:00:00 00:00:00 Drinks History [facility] 2020-08-16 2020-08-16 1 [facility] Alcohol Binge 00:00:00 00:00:00 Sex Assigned At [address] [facility] 00:00:00 00:00:00 Medical Center Smoking Status Start Date Stop Date Source Never smoker [facility] Medications Ordered Filled Start Stop Current Ordering Indication Dosage Frequency Signature Comments Components Source Medication Medication Date Date Medication? Clinician (SIG) Name Name NaCl 0.9% 2021- No 1000mL at 999 Uni vers (NS) bolus 02-27 07-19 mL/hr, ity of infusion 18:30: 20:00 1,000 mL, Biju as 1,000 mL 00 :00 IV Medical Infusion, Branch ONCE, 1 dose, On Sat02/27/22 at 1330, STAT ketorolac No 30mg 30 mg, Unive rs (TORADOL) 01-25 Slow IV ity of injection 16:00: 15:19 Push, [place] 30 mg 00 :00 ONCE, 1 Medical dose, On Branch Yue 01/25/22 at 1100, LINDA NaCl 0.9% 2021- No 1000mL at 999 Uni vers (NS) bolus 01-25 mL/hr, ity of infusion 15:30: 15:45 1,000 mL, Biju as 1,000 mL 00 :00 IV Medical Infusion, Branch ONCE, 1 dose, On Yue 01/25/22 at 1030, LINDA oxcarbazepi Yes Take by Uni vers ne 6-16 mouth. ity of (TRILEPTAL 12:01: [place] ORAL) [address] [place] [address] risperidone Yes Take by Uni vers (RISPERDAL 6-16 mouth. ity of ORAL) 12:01: [address] oxcarbazepi Yes Take by Uni vers ne 6-16 mouth. ity of (TRILEPTAL 12:01: [place] ORAL) [address] [place] [address] risperidone Yes Take by Uni vers (RISPERDAL 6-16 mouth. ity of ORAL) 12:01: [address] ibuprofen Yes 600 mg = 1 Me moria 600 mg oral 4-27 tab, PO, l tablet 11:28: Q6H, PRN Toño 00 Pain or Fever, Take with food, X 10 day, # 40 tab, 1 Refill(s), Pharmacy: [facility], 165.1, cm, 12/05/21 21:26:00 CDT, Height, 81.3, kg, 12/05/21 21:26:00 CDT, Weight [place] 5/325 Yes 1 tab, PO, Memoria oral tablet 4-27 Q4H, PRN l 11:27: Pain Score Toño 00 1-3, X 7 day, # 30 tab, 0 Refill(s), Pharmacy: [facility], 165.1, cm, 12/05/21 21:26:00 CDT, Height, 81.3, kg, 12/05/21 21:26:00 CDT, Weight Zofran No Notes: Memoria 4- (Same as: l 22:53: Zofran) MEDICATION WASTE Product Size: 4 mg Product Wasted: ___ mg estradiol No 0.1 mg, Memor ia 0.1 mg/24 12-05 Route: l hours 20:00: TOP, Drug Form: transdermal ERFILM, film, Dosing extended Weight release 81.364, kg, Q7D, Start date: 12/05/21 15:00:00 CDT, Duration: 30 day, Stop date: 01/02/22 9:00:00 CDT ondansetron No Route: IV, Memoria (ANES) 12-05 Drug form: l 19:56: INJ, ONCE, Stop date: 12/05/21 14:56:00 CDT glycopyrrol No Route: IV, Memoria ate (ANES) 12-05 Drug form: l 19:56: INJ, ONCE, Stop date: 12/05/21 14:56:00 CDT neostigmine No Route: IV, Memoria (ANES) 12-05 Drug form: l 19:56: INJ, ONCE, Stop date: 12/05/21 14:56:00 CDT ANES No Notes: Memoria fentaNYL - (Same as: l 19:38: Sublimaze) Preservati ve free. S No Notes: Memoria HYDROmorpho - Same as: l ne 19:38: Dilaudid No Notes: Memoria flumazenil - (Same as: l 19:38: Romazicon) No Notes: Memoria naloxone - Same as l 19:38: Narcan No Notes: Memoria ondansetron - (Same as: l 19:38: Zofran) MEDICATION WASTE Product Size: 4 mg Product Wasted: ___ mg hydromorpho No Route: IV, Memoria ne (ANES) 12-05 Drug form: l 19:37: INJ, ONCE, Stop date: 12/05/21 14:37:00 CDT lidocaine No Route: IV, Me moria (ANES) 12-05 Drug form: l 19:22: INJ, ONCE, Stop date: 12/05/21 14:22:00 CDT midazolam No Route: IV, Me moria (ANES) 12-05 Drug form: l 19:17: SOLN, ONCE, Stop date: 12/05/21 14:17:00 CDT fentaNYL No Route: IV, Mem oria (ANES) 12-05 Drug form: l 19:17: INJ, ONCE, Stop date: 12/05/21 14:17:00 CDT propofol No Route: IV, Mem oria (ANES) 12-05 Drug form: l 19:17: INJ, ONCE, Stop date: 12/05/21 14:17:00 CDT rocuronium No Route: IV, M emoria (ANES) 12-05 Drug form: l 19:17: INJ, ONCE, Stop date: 12/05/21 14:17:00 CDT dexamethaso No Route: IV, Memoria ne (ANES) 12-05 Drug form: l 18:37: INJ, ONCE, Stop date: 12/05/21 13:37:00 CDT ceFAZolin No Route: IV, Me moria (ANES) 12-05 Drug form: l 18:37: INJ, ONCE, Stop date: 12/05/21 13:37:00 CDT ketOROLAC No 4 days Memor ia 30 mg/mL 12-05 l injectable 18:29: MEDICATION H WASTE Product Size: 30 mg Product Wasted: ___ mg [place] 5/325 No Notes: Devin latrice oral tablet 12-05 (Same as: l 18:29: [place] Toño 00 325/5) Do not exceed 4gm/day of acetaminop hen. Lactated No Route: IV, Mem oria Ringers - Total l Injection 18:22: Volume: Cindy nn IV (ANES) 00 1,000, 1000 mL Start date: 12/05/21 13:22:00 CDT, Stop date: 12/05/21 14:22:00 CDT acetaminoph No Notes: Max Memoria en - acetaminop l 15:17: hen 4000 [place] 00 mg/day (4 gm/day). (Same as: Tylenol Extra Strength) celecoxib No Notes: Memori a 12-05 NSAID. l 15:17: Please [place] 00 check indication . Not for seizure. (Same As: CeleBREX) gabapentin No Notes: Memor ia 12-05 (Same as: l 15:17: Neurontin) [place] 00 Lactated No 1,000 mL, Devin latrice [place] 12-05 Rate: 75 l Injection 15:16: ml/hr, [place] n IV 1,000 mL 00 Infuse over: 13.3 hr, Route: IV, Dosing Weight 80.909 kg, Total Volume: 1,000, Start date: 12/05/21 10:16:00 CDT, Duration: 30 day, Stop date: 01/04/22 10:15:00 CDT, BSA: 1.96 m2, 0 Ancef No Notes: Memoria 4-26 Same as l 11:00: Ancef [place] 00 Lactated No 1,000 mL, Devin latrice [place] -26 Rate: 125 l Injection 11:00: ml/hr, [place] n IV 1,000 mL 00 Infuse over: 8 hr, Route: IV, Dosing Weight 80.909 kg, Total Volume: 1,000, Start date: 12/05/21 6:00:00 CDT, Duration: 30 day, Stop date: 01/04/22 5:59:00 CDT, BSA: 1.96 m2, 0 hydrOXYzine Yes 25 mg = 1 M emoria pamoate 25 4-25 cap, PO, l mg oral 19:58: Bedtime, 0 Herm roni capsule 00 Refill(s) carvedilol Yes 6.25 mg = Me moria 6.25 mg 4-25 1 tab, PO, l oral tablet 19:57: BID, 0 Herm roni 00 Refill(s) Trileptal Yes 150 mg, Memor ia 4-25 PO, l 19:56: Bedtime, # [place] 00 30 tab, 0 Refill(s) Risperdal Yes 2 mg = 2 Devin latrice M-Tab 1 mg 4-25 tab, PO, l oral 19:53: Bedtime, # [place] tablet, 00 60 tab, 0 disintegrat Refill(s) ing oxcarbazepi Yes Take by [facility] ne 3-29 mouth. Milagros (TRILEPTAL 02:50: Medical ORAL) 01 Center multivitami Yes 1{capsu QD Take [address] n capsule 3 le} capsule by Luke s 21:57: mouth Medical 40 daily. Center ascorbic Yes QD Take by [facility] acid/multiv 3-27 [facility] it-min 21:57: daily . Medical (EMERGEN-C 40 Center IMMUNE PLUS ORAL) ferrous Yes 325mg Take 325 [facility] S t sulfate 325 3-27 mg by Milagros (65 FE) MG 21:57: mouth Medica l tablet 40 daily with Center breakfast. risperiDONE Yes 2mg Q.5D Take [address] (RisperDAL) 3-27 by mouth 2 [facility]elli kes 2 MG tablet 21:57: (two) Medic al 40 times Center daily. hydrOXYzine Yes 100mg Take [address] (VISTARIL) 3-27 mg by [facility] 100 MG 21:57: mouth 3 Medical capsule 40 (three) Center times daily as needed for Itching. keTOROlac 2019-08 Yes 10mg Q6H Take 10 mg Me thodi (TORadol) 2-[address] 10 mg 13:57: every 6 Hospita tablet 23 (six) l hours as needed for moderate pain. ondansetron 2019-08 Yes 8mg Q6H Take 2 Meth violet ODT 2-12 tablets (8 st (ZOFRAN-ODT 00:00: mg total) H ospita ) 4 MG 00 by mouth l disintegrat every 6 ing tablet (six) hours as needed for nausea or vomiting. morpHINE 2019-08- No 4mg 4 mg, Slow Un annette injection 4 0-11 10-11 IV Push, ity of mg 17:45: 16:36 ONCE, 1 [place] 00 :00 dose, [facility] 05/22/20 Branch at 1245, STAT ketorolac 2019-08- No 30mg 30 mg, Unive rs (TORADOL) 0-11 10-11 Slow IV ity of injection 16:30: 15:39 Push, [place] 30 mg 00 :00 ONCE, 1 Medical dose, [facility] 05/22/20 at 1130, Routine
adjunct communications faculty member approving Restricted medication : ANA BOO cephALEXin 2019-08- No 500mg Take 500 U nivers (KEFLEX) 0-11 10-11 mg by ity of 500 mg 16:27: 00:00 mouth 4 [place] capsule 49 :00 (four) Medical times Branch daily. cephALEXin Yes 500mg Take 500 Un annette (KEFLEX) 6-05 mg by ity of 500 mg 13:59: mouth 4 [place] capsule 29 (four) Medical times Branch daily. cephALEXin 2019-0 Yes 500mg Take 500 Un annette (KEFLEX) 6-05 mg by ity of 500 mg 13:59: mouth 4 [place] capsule 29 (four) Medical times Branch daily. norgestimat Yes [id number] 1{tbl} Take 1 Univers e-ethinyl 6-05 tablet by ity o f estradiol 00:00: mouth [place] (ORTHO 00 daily. [facility] TRI-CYCLEN Branch , ,) 0.18/0.215/ 0.25 mg-25 mcg tablet norgestimat Yes [id number] 1{tbl} Take 1 Univers e-ethinyl 6-05 tablet by ity o f estradiol 00:00: mouth [place] (ORTHO 00 daily. [facility] TRI-CYCLEN Branch , ,) 0.18/0.215/ 0.25 mg-25 mcg tablet norgestimat 2020- No [id number] 1{tbl} Take 1 Univers e-ethinyl 6-05 10-11 tablet by ity of estradiol 00:00: 00:00 mouth [place] (ORTHO 00 :00 daily. Medical TRI-CYCLEN Branch LO, 28,) 0.18/0.215/ 0.25 mg-25 mcg tablet ibuprofen [...] PAIN CONTROL No known No Univers medications [facility] No known No Univers medications [facility] Immunizations Ordered Filled Immunization Date Status Comments Sour e Immunization Name Name Influenza Four-QIV 2021-09-02 Completed [facility] PF 6+MO IM ([id number]) 00:00:00 Medic al Center [id number] 2021-08-31 Completed Memor ial [place] RNA-1273vaxMODERNA 00:00:00 [id number] 2020-11-18 Completed Memor ial [place] RNA-1273vaxMODERNA 00:00:00 HPV9 2019-03-04 Completed University of 00:00:00 [facility] HPV9 2019-03-04 Completed University of 00:00:00 [facility] HPV9 2019-03-04 Completed University of 00:00:00 [facility] HPV9 2019-03-04 Completed University of 00:00:00 [facility] HPV9 2019-03-04 Completed University of 00:00:00 [facility] HPV9 2019-03-04 Completed University of 00:00:00 [facility] HPV9 2019-03-04 Completed University of 00:00:00 [facility] HPV9 2019-01-14 Completed University of 00:00:00 [facility] HPV9 2019-01-14 Completed University of 00:00:00 [facility] HPV9 2019-01-14 Completed University of 00:00:00 [facility]9 2019-01-14 Completed University of 00:00:00 [facility] 2019-01-14 Completed University of 00:00:00 [facility] 2019-01-14 Completed University of 00:00:00 [facility] 2019-01-14 Completed University of 00:00:00 [facility] Vital Signs Vital Name Observation Time Observation Value Comments Source HEIGHT 2020-11-08 13:25:00 167.6 cm WEIGHT 2020-11-08 13:25:00 65.318 kg HEIGHT 2020-10-26 11:21:00 167.6 cm WEIGHT 2020-10-26 11:21:00 65.318 kg WEIGHT 2020-08-23 06:03:00 72.122 kg HEIGHT 2020-08-23 06:03:00 167.6 cm HEIGHT 2020-08-22 10:38:00 167.6 cm WEIGHT 2020-08-22 10:38:00 72.122 kg HEIGHT 2020-11-29 23:55:00 167.6 cm WEIGHT 2020-11-29 23:55:00 64.864 kg Systolic blood 2022-02-27 20:00:23 124 mm[Hg] Univer sity of pressure [facility] Diastolic blood 2022-02-27 20:00:23 81 mm[Hg] Unive rsity of [facility] Heart rate 2022-02-27 20:00:23 76 /min [facility] Respiratory rate 2022-02-27 20:00:23 18 /min [facility] Oxygen saturation in 2022-02-27 20:00:23 100 /min [facility] Arterial blood by [facility] Pulse oximetry Branch Body temperature 2022-02-27 18:26:00 37.06 [facility]ree [facility] Body height 2022-02-27 18:26:00 167.6 cm [facility] Body weight 2022-02-27 18:26:00 79.379 kg [facility] BMI 2022-02-27 18:26:00 28.25 kg/m2 [facility] Systolic blood 2022-01-25 17:00:00 120 mm[Hg] Univer sity of pressure [facility] Diastolic blood 2022-01-25 17:00:00 73 mm[Hg] Unive rsity of pressure [facility] Heart rate 2022-01-25 17:00:00 63 /min [facility] Respiratory rate 2022-01-25 17:00:00 18 /min [facility] Oxygen saturation in 2022-01-25 17:00:00 98 /min [facility] Arterial blood by [facility] Pulse oximetry Branch Body temperature 2022-01-25 14:20:00 37.56 Sheree [facility] Body height 2022-01-25 14:20:00 167.6 cm [facility] Body weight 2022-01-25 14:20:00 79.833 kg [facility] BMI 2022-01-25 14:20:00 28.41 kg/m2 [facility] HEIGHT 2021-11-05 21:55:00 167.6 cm WEIGHT 2021-11-05 21:55:00 78.019 kg HEIGHT 2021-11-05 21:55:00 167.6 cm WEIGHT 2021-11-05 21:55:00 78.019 kg HEIGHT 2021-11-05 21:55:00 167.6 cm WEIGHT 2021-11-05 21:55:00 78.019 kg HEIGHT 2021-09-02 02:00:00 157.5 cm WEIGHT 2021-09-02 02:00:00 80.6 kg HEIGHT 2021-09-01 17:15:00 167.6 cm WEIGHT 2021-09-01 17:15:00 80.7 kg HEIGHT 2021-09-02 02:00:00 157.5 cm WEIGHT 2021-09-02 02:00:00 80.6 kg HEIGHT 2021-09-01 17:15:00 167.6 cm WEIGHT 2021-09-01 17:15:00 80.7 kg HEIGHT 2021-09-02 02:00:00 157.5 cm WEIGHT 2021-09-02 02:00:00 80.6 kg HEIGHT 2021-09-01 17:15:00 167.6 cm WEIGHT 2021-09-01 17:15:00 80.7 kg Systolic blood 2021-04-03 17:30:00 116 mm[Hg] Univer sity of pressure [facility] Diastolic blood 2021-04-03 17:30:00 58 mm[Hg] Unive rsity of pressure [facility] [place] Branch Heart rate 2021-04-03 17:30:00 62 /min [facility] [place] [facility] [place] Respiratory rate 2021-04-03 17:30:00 17 /min Univ ersity of [facility] Oxygen saturation in 2021-04-03 17:30:00 100 /min University of Arterial blood by [employer] Pulse oximetry Branch Body temperature 2021-04-03 16:14:00 37.17 Sheree Univ ersity of [facility] Body height 2021-04-03 16:14:00 167.6 cm Universi ty of [facility] Body weight 2021-04-03 16:14:00 73.483 kg [facility] [place] [facility] [place] BMI 2021-04-03 16:14:00 26.15 kg/m2 Universi ty of [facility] HEIGHT 2020-11-29 23:55:00 167.6 cm WEIGHT 2020-11-29 23:55:00 64.864 kg HEIGHT 2020-11-08 13:25:00 167.6 cm WEIGHT 2020-11-08 13:25:00 65.318 kg HEIGHT 2020-10-26 11:21:00 167.6 cm WEIGHT 2020-10-26 11:21:00 65.318 kg WEIGHT 2020-08-23 06:03:00 72.122 kg HEIGHT 2020-08-23 06:03:00 167.6 cm HEIGHT 2020-08-22 10:38:00 167.6 cm WEIGHT 2020-08-22 10:38:00 72.122 kg Systolic blood 2020-05-22 16:36:00 121 mm[Hg] Univer sity of pressure [facility] Diastolic blood 2020-05-22 16:36:00 85 mm[Hg] Unive rsity of pressure [facility] Heart rate 2020-05-22 16:36:00 62 /min [facility] [place] [facility] [place] Respiratory rate 2020-05-22 16:36:00 16 /min [facility] Oxygen saturation in 2020-05-22 16:36:00 100 /min University of Arterial blood by [employer] Pulse oximetry Branch Body temperature 2020-05-22 15:02:00 35.89 Sheree [facility] Body weight 2020-05-22 15:02:00 74.844 kg [facility] BMI 2020-05-22 15:02:00 26.63 kg/m2 [facility] Systolic blood 2020-05-22 16:36:00 121 mm[Hg] Univer sity of pressure [facility] Diastolic blood 2020-05-22 16:36:00 85 mm[Hg] Unive rsity of pressure [facility] Heart rate 2020-05-22 16:36:00 62 /min [facility] Respiratory rate 2020-05-22 16:36:00 16 /min [facility] Oxygen saturation in 2020-05-22 16:36:00 100 /min [facility] Arterial blood by [facility] Pulse oximetry Branch Body temperature 2020-05-22 15:02:00 35.89 Sheree [facility] Body weight 2020-05-22 15:02:00 74.844 kg [facility] BMI 2020-05-22 15:02:00 26.63 kg/m2 [facility] Heart Rate 2021-12-06 13:04:21 Memorial [place] Respitory Rate 2021-12-06 13:04:21 Memori al [place] Diastolic (mm Hg) 2021-12-06 13:04:03 Mem orial Toño Heart Rate 2021-12-06 13:04:03 [facility] [place] Systolic (mm Hg) 2021-12-06 13:04:03 Devin rial Toño Temperature Oral (F) 2021-12-06 13:03:39 98 F [facility] [place] Heart Rate 2021-12-06 08:25:08 Memorial [place] Respitory Rate 2021-12-06 08:25:08 Memori al [place] Systolic (mm Hg) 2021-12-06 08:24:53 Devin rial Toño Diastolic (mm Hg) 2021-12-06 08:24:53 Mem orial [place] Temperature Oral (F) 2021-12-06 08:24:27 98.2 F Memorial Toño Respitory Rate 2021-12-06 04:07:25 Memori al Toño Systolic (mm Hg) 2021-12-06 04:06:51 Devin rial [place] Diastolic (mm Hg) 2021-12-06 04:06:51 Mem orial [place] Temperature Oral (F) 2021-12-06 04:06:42 98.3 F [facility] Toño Height 2021-12-06 02:26:00 165.1 cm [facility] [place] Weight 2021-12-06 02:26:00 Memorial Toño BMI Calculated 2021-12-06 02:26:00 Memori al Toño Weight 2021-12-05 15:35:00 [facility] Toño BMI Calculated 2021-12-05 15:35:00 Gianna al Toño Height 2021-12-04 19:52:00 167.64 cm [facility] Systolic blood 2021-11-06 02:49:00 121 mm[Hg] [facility] Diastolic blood 2021-11-06 02:49:00 86 mm[Hg] [facility] Heart rate 2021-11-06 02:49:00 83 /min [facility] Body temperature 2021-11-06 02:49:00 36.89 Sheree [facility] Respiratory rate 2021-11-06 02:49:00 15 /min [facility] Oxygen saturation in 2021-11-06 02:49:00 99 /min [facility] Arterial blood by Medical Ce nter Pulse oximetry Body height 2021-11-05 21:55:00 167.6 cm [facility] Body weight 2021-11-05 21:55:00 78.019 kg [facility] BMI 2021-11-05 21:55:00 27.76 kg/m2 [facility] Procedures Procedure Date / Time Performing Clinician Source Performed POCT TEST 2022-02-27 19:01:00 Capo Lobo [facility] TROPONIN I 2022-02-27 18:57:00 Singer [facility] COMP. METABOLIC PANEL 2022-02-27 18:57:00 Capo Lobo [facility] ([id number]) [facility] Branch CBC WITH DIFF 2022-02-27 18:57:00 Singer [facility] URINALYSIS 2022-02-27 18:57[facility] NOW RAPID 2022-02-27 18:57:00 Capo Lobo [facility] TESTING) Medical Branch XR CHEST 1 VW 2022-02-27 18:40:16 Lobo, [facility] CONSENT/REFUSAL FOR 2022-02-27 18:15:15 Doctor Unadanni [facility] DIAGNOSIS AND TREATMENT [facility] CREATINE KINASE 2022-01-25 14:41:00 Petrona Pan [facility] MAGNESIUM 2022-01-25 14:41:00 Petrona Pan [facility] COMP. METABOLIC PANEL 2022-01-25 14:41:00 Petrona Pan [facility] ([id number]) [facility] [place] CBC WITH DIFF 2022-01-25 14:41:00 Petrona Pan [facility] URINALYSIS 2022-01-25 14:38:00 Petrona Pan [facility] NOTICE OF PRIVACY 2022-01-25 14:16:02 Doctor Fidencio, [facility] PRACTICES [facility] CONSENT/REFUSAL FOR 2022-01-25 14:11:03 Doctor Fidencio [facility] DIAGNOSIS AND TREATMENT [facility] CT BRAIN WITHOUT IV 2021-11-06 00:08:00 May Mullins [facility] CONTRAST Center CT SPINE CERVICAL WITHOUT 2021-11-06 00:08:00 May Mullins [facility] IV CONTRAST Center ECG 12-LEAD 2021-11-05 22:40:48 May Mullins [facility] ECG 12-LEAD 2021-11-05 22:40:48 Unknown, Hl7 Doctor [facility] CBC W/PLT COUNT & AUTO 2021-11-05 22:38:00 May Mullins CH I [facility] DIFFERENTIAL Center COMPREHENSIVE METABOLIC 2021-11-05 22:38:00 May Mullins C HI [facility] PANEL Center HCG, QUANTITATIVE, 2021-11-05 22:38:[address] [facility] Center LACTIC ACID, VENOUS 2021-11-05 22:38:00 Susanna [facility] HIGH SENSITIVITY TROPONIN 2021-11-05 22:38:00 Susanna [facility] Center CBC W/PLT COUNT & AUTO 2021-11-05 22:38:00 Susanna [facility] EKG-SCANNED 2021-11-05 00:00:00 Nate Mace [facility] CBC W/PLT COUNT & AUTO 2021-09-04 04:15:00 [facility] BASIC METABOLIC PANEL (7) 2021-09-04 04:15:00 Sindhu Medeiros [facility] MAGNESIUM 2021-09-04 04:15:00 [facility] C-REACTIVE PROTEIN 2021-09-04 04:15:00 [facility] ANTI-NUCLEAR ANTIBODY 2021-09-04 04:15:00 Sindhu Medeiros [facility] Center CBC W/PLT COUNT & AUTO 2021-09-04 04:15:00 Sindhu Medeiros [facility] BLOOD CULTURE 2021-09-04 04:14:00 Sindhu Medeiros [facility] CTA BRAIN 2021-09-03 18:38:00 Robson Mckenzie [facility] Brendon An[facility] [place] CBC W/PLT COUNT & AUTO 2021-09-03 04:45:00 Sindhu Medeiros [facility] BASIC METABOLIC PANEL (7) 2021-09-03 04:45:00 Sindhu Medeiros [facility] MAGNESIUM 2021-09-03 04:45:00 Sindhu Medeiros [facility] CBC W/PLT COUNT & AUTO 2021-09-03 04:45:00 [facility] 2D ECHO W/ DOPPLER 2021-09-02 17:12:55 [facility] (CW/PW/COLOR) [facility] TROPONIN I 2021-09-02 06:46:00 [facility] TROPONIN I 2021-09-02 03:53:00 [facility] BASIC METABOLIC PANEL (7) 2021-09-02 03:53:00 [facility] LIPID PANEL 2021-09-02 03:53:00 [facility] PROTHROMBIN TIME/INR 2021-09-02 03:53:00 [facility] MAGNESIUM 2021-09-02 03:53:00 [facility] PHOSPHORUS 2021-09-02 03:53:00 [facility] CBC W/PLT COUNT & AUTO 2021-09-02 03:53:[address] [facility] DIFFERENTIAL [facility] TSH/FREE T4 IF INDICATED 2021-09-02 03:53:00 [facility] HEMOGLOBIN A1C 2021-09-02 03:53:00 [facility] FERRITIN 2021-09-02 03:53:00 [facility] IRON, TIBC, % SAT. 2021-09-02 03:53:00 [facility] (WITHOUT FERRITIN) [facility] CBC W/PLT COUNT & AUTO 2021-09-02 03:53:00 [facility] DIFFERENTIAL [facility] MR BRAIN WITH & WITHOUT IV 2021-09-02 00:00:00 Kailey Juárez [facility] URINALYSIS W/ MICROSCOPIC 2021-09-01 22:32:00 Kailey Juárez [facility] RAPID DRUG SCREEN, URINE 2021-09-01 22:32:00 [facility] US PELVIS WITH ENDOVAG 2021-09-01 20:25:00 Kailey Juárez [facility] WITH DOPPLER [facility] CT BRAIN WITHOUT IV 2021-09-01 18:12:00 [facility] SARS-COV2/RT-PCR ([facility] & 2021-09-01 18:01:00 Kailey Juárez CH I [facility] REF LABS) [facility] CBC W/PLT COUNT & AUTO 2021-09-01 17:53:00 [facility]ENTIAL [facility] BASIC METABOLIC PANEL (7) 2021-09-01 17:53:00 Kailey Juárez [facility] TROPONIN I 2021-09-01 17:53:00 Marquita [facility] D-DIMER 2021-09-01 17:53:00 Kailey Juárez [facility] CBC W/PLT COUNT & AUTO 2021-09-01 17:53:00 Kailey Juárez [facility] DIFFERENTIAL [facility] XR CHEST 1 VIEW PORTABLE / 2021-09-01 17:48:00 [facility] BED[facility]IDE [facility] ED ECG INTERPRETATION 2021-09-01 17:35:00 Kailey Juárez [facility] EKG-SCANNED 2021-09-01 00:00:00 ProviderNate [facility] URINALYSIS 2021-04-03 16:46:00 Marli Nixon [facility] LIPASE 2021-04-03 16:36:00 [facility] FUN[facility] PANEL 2021-04-03 16:36:00 Marli Nixon [facility] ([id number]) (ALB,T.PRO,BILI Medical Branch T,BU/BC,ALT,AST,ALK PHOS) BASIC METABOLIC PANEL (NA, 2021-04-03 16:36:00 [facility], CL, CO2, GLUCOSE, BUN, Medica l Branch CREATININE, CA) CBC WITH DIFF 2021-04-03 16:36:00 Marli Nixon [facility] CONSENT/REFUSAL FOR 2021-04-03 16:08:40 Doctor Fidencio, [facility] DIAGNOSIS AND TREATMENT [facility] HYSTERECTOMY 2020-11-08 05:00:00 [facility] spencer CHOLECYSTECTOMY 2020-07-31 06:00:00 [facility] Her spencer XR CHEST 1 VW 2020-05-22 15:46:02 Ana Boo [facility] COVID-19 (ID NOW RAPID 2020-05-22 15:32:00 Ana Boo [facility] TESTING) Medical Branch LIPASE 2020-05-22 15:21:00 Oren Young [facility] TROPONIN I 2020-05-22 15:21:00 Oren Young [facility] COMP. METABOLIC PANEL 2020-05-22 15:21:00 Oren Young [facility] ([id number]) Medical Branch CBC WITH DIFF 2020-05-22 15:21:00 Oren Young [facility] PROTHROMBIN TIME / INR 2020-05-22 15:21:00 Oren Young [facility] D-DIMER 2020-05-22 15:21:00 Ana Boo [facility] ACTIVATED PARTIAL THRMPLAS 2020-05-22 15:21:00 Oren Young [facility] URINALYSIS 2020-05-22 15:21:00 Oren Young [facility] POCT TEST 2020-05-22 15:21:00 Oren Young [facility] EKG-12 LEAD 2020-05-22 15:08:07 Oren Young [facility] NOTICE OF PRIVACY 2020-05-22 14:53:53 Doctor Fidencio [facility] PRACTICES [facility] CONSENT/REFUSAL FOR 2020-05-22 14:52:25 Doctor Fidencio, [facility] DIAGNOSIS AND TREATMENT [facility] Plan of Care Planned Activity Planned Date Details Comments Source Future Scheduled 2022-04-13 [facility] 17:39:34 VACCINES (1 of 3 - 3-dose series) [code = HEPATITIS B VACCINES (1 of 3 - 3-dose series)] Future Scheduled 2022-04-13 COVID-[address] [facility] Test 17:39:34 (#1) [code = COVID-19 VACCINE (#1)] Future Scheduled 2022-04-13 Hepatitis [facility] Test 17:39:34 screening (procedure) [code = 453798725] Future Scheduled 2022-04-13 [facility] for [facility] Test 17:39:34 malignant neoplasm of cervix (procedure) [code = 616792761] Future Scheduled 2022-04-13 [facility]ZA [facility]ACCINE [facility] 17:39:34 [code = INFLUENZA VACCINE] Future Scheduled 2022-04-[address] [facility] Test 00:00:00 (#1) [code = Medical Center INFLUENZA VACCINE (#1)] Future Scheduled [address] [facility] Test 00:00:00 malignant neoplasm Medical C enter of cervix (procedure) [code = 713095578] Future Scheduled 2012 DTAP/TDAP/TD [facility] 00[facility] VACCINES (1 - Tdap) Medical Center [code = DTAP/TDAP/TD VACCINES (1 - Tdap)] Future Scheduled [address] [facility] Test 00:00:00 SCREENING [code = Medical nt HEPATITIS C SCREENING] Future Scheduled 1994-01-17 COVID-[address] [facility] Test 00:00:00 (#1) [code = [facility] COVID-19 VACCINE (#1)] Encounters Start End Encounter Admission Attending Care Care Encounter Source Date/Time Date/Time Type Type Clinicians Facility Department ID 2022-01-04 Outpatient [facility] [id number] [place] 11:31:03 [id number] [facility] 2021-06-12 Emergency [facility] [id number] Univers 17:22:42 ity [facility] 2021-06-09 Emergency [facility] [id number] Univers 22:15[id number] 08:16:10 [place] 2021-05-19 Outpatient JUAN, [facility] Surgery [id number] [facility] 22:29:12 [place] 2020-11-[address] [facility] [id number] [facility] 23:35:00 [facility] 2022-02-27 2022-02-27 Emergency X [facility] ERT [id number] Univers 13:28:00 15:09:00 CAPO kaylatam [facility] 2022-02-27 2022-02-27 Emergency [facility] [id number] Univers 13:28:00 15:09:00 Capo CLEANING [id number] i [facility] 4.2.7.2.686 [facility] [id number] [address] 2022-01-25 2022-01-25 [facility] [id number] Univers 09:24:00 12:05:00 PETRONA delfina [facility] 2022-01-25 2022-01-25 [facility] [id number] Univers 09:24:00 12:05:00 Petrona CLEANING [id number] [facility] 4.2.7.2.686 [facility] [id number] [address] 2021-12-05 2021-12-06 Inpatient [facility] [id number] [facility] 15:12:00 16:35:00 luciano Lundberg 00 l [place] [facility] nn 2021-12-05 2021-12-06 Inpatient JUAN, [facility]FB [facility] 7500 [facility] 10:12:00 11:35:00 BEATRIZ 2021-12-05 2021-12-06 Outpatient Juan, [facility] [id number] 10:12:00 11:35:00 Beatriz L 00 2021-11-05 2021-11-06 Emergency ER HARRMIRNA, SLE Emergency [id number] SLE 22:00:00 02:50:00 MAY 2021-11-05 2021-11-06 Emergency [facility] [id number] [facility] 22:00:00 02:50:00 [facility] 2021-11-05 2021-11-05 Outpatient [facility] [id number] [facility] 00:00:00 23:59:00 [facility] 2021-11-05 2021-11-05 Orders [facility] [id number] 00:00:00 00:00:[address] [facility] 2021-11-05 2021-11-05 Travel [facility] [id number] [facility]00 00:[facility]:00 [facility] 2021-09-01 2021-09-04 Inpatient ER MALA, [facility] Internal [id number] [facility] 17:19:00 15:02:00 [facility] [place] 2021-09-01 2021-09-04 Hospital Raymundo Borges [facility] [id number] 17:19:00 15:02:00 Encounter MatthewTiffanie morrison [facility] 2021-09-02 2021-09-02 Travel [facility] [id number] [facility] 00:[facility]00 00:00:00 [facility] 2021-04-03 2021-04-03 Emergency Nixon, [facility] [id number] Univers 11:16:00 13:07:00 Marli Cleaning [id number] i [place] 4.2.7.2.686 [facility] [id number] [facility] 084 Branch 2021-04-03 2021-04-03 Orders Doctor BLAKELY [id number] Univers 00:00:00 00:00:00 Only Unassigned, KIRA [id number] ity of [place] [facility] 4.2.7.2.686 [facility] [id number] [facility] 009 Branch 2020-11-21 2020-11-21 Emergency ER [facility] Emergency [id number] [facility] 15:47:00 15:47:00 2020-11-03 2020-11-03 Outpatient [facility] [id number] [facility] 00:[facility]00 00:00:00 2020-10-22 2020-10-22 Emergency RUFFIN, [place] [address] [id number] [place] 00:00:00 00:00:00 RADHA Henry5 Metho di 2020-08-19 2020-08-19 Outpatient EL SLSL [facility] [id number] [facility]SL 00:00:00 00:00:00 2020-08-16 2020-08-16 Outpatient HIDALGO, [facility] [id number] [place] 00:00:00 00:00:00 SYEDA 745 Meth ivolet 2020-08-10 2020-08-10 Emergency PEREZ, [place] [address] [id number] [place] 00:00:00 00:00:00 ERLINDA 417 Method i 2020-07-21 2020-07-23 Inpatient BUNCH, [place] [address] [id number] [place] 00:00:00 00:00:00 SIDRAH 738 Method i 2020-07-12 2020-07-12 Outpatient HIDALGO, [facility] [id number] [place] 00:00:00 00:00:00 SYEDA 514 Meth violet 2020-07-05 2020-07-05 Emergency TANYA BARTON [facility] [id number] [place] 00:00:00 00:00:00 916 Method i 2020-05-22 2020-05-22 Outpatient R EMA, [facility] [id number] [facility] 13:30:00 13:30:00 ANA [id number] ity [facility] 2020-05-22 2020-05-22 Emergency [facility] [id number] 10:05:00 12:50:00 Ana Cleaning 350.1.13.[address] [place] [address] [place] [address] [id number] [facility] 2020-05-22 2020-05-22 Emergency [facility] [id number] [facility] 10:05:00 12:50:00 Ana Cleaning 350.1.13.10 ity [facility] 4.2.7.2.[address] [place] [id number] 2020-05-22 2020-05-22 Orders Doctor ZORA [id number] 00:00:00 00:00:00 Only Unassigned, KIRA 350.1.13.10 [place] [facility] 4.2.7.2.686 [id number] 2020-05-22 2020-05-22 Orders Doctor ZORA [id number] Univers 00:00:00 00:00:00 Only UnassignedKIRA 350.1.13.10 ity of [place] [facility] 4.2.7.2.686 Biju as [id number] [address] 2019-03-12 2019-03-[address] [facility] [id number] 00:00:00 00:00:00 Lauren C UPTWIST SPINNER 350.1.13.10 [facility] 4.2.7.2.686 MATERNAL [id number] & CHILD [address] [place] [address] 2019-03-12 2019-03-[address] [facility] [id number] Univers 00:00:00 00:00:00 Lauren C UPTWIST SPINNER 350.1.13.10 ity of [facility] 4.2.7.2.686 Biju as MATERNAL [id number] Med ical & CHILD [address] [place] [address] Results Test Description Test Time Test Comments Results Result Comments Source TROPONIN I 2022-02-27 19:33:51 Test Item Value Reference Range Interpretation Comme nts TROPONIN I (test code = 0.003 ng/mL See_Comment [Au tomated message] The 9910787624) system which ge nerated this result tra nsmitted reference range : <=0.034. The reference r ryann was not used to int erpret this result as normal/abnormal . VERITO (test code = VERITO) Reference (Normal) Range (defined by the 99th percentile reference limit): <= 0.034 ng/mL Note: Cardiac troponin begins to rise 3-4 hours after the onset of ischemia. Repeat in 4-6 hours if the sample was drawn within 3-4 hours of the onset of the symptom and found normal. Diagnosis of myocardial injury is made with acute changes in cTn concentrations with at least one serial sample above the 99th percentile upper reference limit (URL), taken together with the patient's clinical presentation. Biotin has been reported to cause a negative bias, interpret results relative to patient's use of biotin. Lab Interpretation Normal (test code = 24429-5) [facility] WITH [id number] 19:24:09 Test Item Value Reference Range Interpretation Comments [...] as normal/abnormal . HGB (test code = 11.1 g/dL 11.6-15 L 718-7) HCT (test code = 35.4 % 35.7-45.2 L 4544-3) MCV (test code = 78.0 fL 80.6-95.5 L 787-2) MCH (test code = 24.4 pg 25.9-32.8 L 785-6) MCHC (test code = 31.4 g/dL 31.6-35.1 L 786-4) RDW-SD (test code = 40.0 fL 39-49.9 47733-1) RDW-CV (test code = 14.1 % 12-15.5 788-0) PLT (test code = See_Comment [Automated 777-3) message] The sy stem which generated this result transmitted reference range : 166 - 358 10*3/ ?L. The reference r ryann was not used to interpret this result as normal/abnormal . MPV (test code = 10.4 fL 9.5-12.9 56927-0) NRBC/100 WBC (test See_Comment [Automat ed code = 7384334003) message] The system which generated this result transmitted reference range : 0.0 - 10.0 /100 WBCs. The refer ence range was not u sed to interpret th is result as normal/abnormal . NRBC x10^3 (test code See_Comment [Auto mated = 6173174714) message] The s ystem which generated this result transmitted reference range : 10*3/?L. The reference range was not used to interpret this result as normal/abnormal . GRAN MAT (NEUT) % 66.3 % (test code = 770-8) IMM GRAN % (test code 0.20 % = 5933538263) LYMPH % (test code = 24.6 % 736-9) MONO % (test code = 7.2 % 5905-5) EOS % (test code = 0.9 % 713-8) BASO % (test code = 0.8 % 706-2) GRAN MAT x10^3(ANC) 4.25 10*3/uL 1.88-7.09 (test code = 1895238919) IMM GRAN x10^3 (test 0-0.06 code = 7137911429) LYMPH x10^3 (test code 1.58 10*3/uL 1.32-3.29 = 731-0) MONO x10^3 (test code 0.46 10*3/uL 0.33-0.92 = 742-7) EOS x10^3 (test code = 0.06 10*3/uL 0.03-0.39 711-2) BASO x10^3 (test code 0.05 10*3/uL 0.01-0.07 = 704-7) Lab Interpretation Abnormal (test code = 02871-0) [facility]. METABOLIC PANEL ([id number])2022-02-27 19:23:49 Test Item Value Reference Range Interpretation Comments NA (test code = 142 mmol/L 135-145 5069993055) K (test code = 3.7 mmol/L 3.5-5 5059803864) CL (test code = 104 mmol/L 98-108 3667338125) CO2 TOTAL (test code 30 mmol/L 23-31 = 8880087633) AGAP (test code = 2-16 2848598615) BUN (test code = 9 mg/dL 7-23 9131975565) GLUCOSE (test code = 109 mg/dL 70-110 7879168343) CREATININE (test code 0.66 mg/dL 0.5-1.04 = 4715294773) TOTAL BILI (test code 0.3 mg/dL 0.1-1.1 = 4330692472) CALCIUM (test code = 9.3 mg/dL 8.6-10.6 3163729566) T PROTEIN (test code 7.2 g/dL 6.3-8.2 = 6284390546) ALBUMIN (test code = 4.1 g/dL 3.5-5 3433919021) ALK PHOS (test code = 78 U/L 34-122 0773561412) ALTv (test code = 25 U/L 5-35 1742-6) AST(SGOT) (test code 27 U/L 13-40 = 3940869016) eGFR (test code = mL/min/1.73m2 3494483528) VERITO (test code = VERITO) Association of Glomerular Filtration Rate (GFR) and Staging of Kidney Disease* + + +- +| GFR (mL/min/1.73 m2) ?| With Kidney Damage ?| ?Without Kidney Damage+ ------+ ----+ ------+| ?>90 ?| ?Stage one ?| ? Normal ?+ -+ + -+| ?60-89 ?| ?Stage two ?| ? Decreased GFR ? + + +- +| ?30-59 ?| ?Stage three ?| ? Stage three ? + + +- +| ?15-29 ?| ?Stage four ? | ? Stage four ?+ -+ + -+| ?<15 (or dialysis) ? ?| ?Stage five ? | ? Stage five ?+ -+ + -+ *Each stage assumes the associated GFR level [...] or urine or abnormalities in imaging tests). General acute hospital [id number] 19:01:00 Test Item Value Reference Range Interpretation Comments POCT PREG (test code = 1605) negative On board controls acceptable with present C Line (test code = 3574) POCT PREG LOT # (test code = 3575) [id number] POCT PREG TEST DATE (test 06/11/23 code = 3576) Lab Interpretation (test code = Normal 85481-3) [facility]. METABOLIC PANEL (14749)2022-01-25 15:09:17 Test Item Value Reference Range Interpretation Comments NA (test code = 140 mmol/L 135-145 3814412077) K (test code = 3.7 mmol/L 3.5-5.0 0862560701) CL (test code = 107 mmol/L 98-108 7851904448) CO2 TOTAL (test code = 28 mmol/L 23-31 4865588088) AGAP (test code = 2-16 7133101614) BUN (test code = 10 mg/dL 7-23 0829901189) GLUCOSE (test code = 115 mg/dL 70-110 H 1838786901) CREATININE (test code = 0.67 mg/dL 0.50-1.04 9527486145) TOTAL BILI (test code = 0.6 mg/dL 0.1-1.0 4470616781) CALCIUM (test code = 9.2 mg/dL 8.6-10.6 4225464067) T PROTEIN (test code = 7.2 g/dL 6.3-8.2 9391852879) ALBUMIN (test code = 4.1 g/dL 3.5-5.0 1727904080) ALK PHOS (test code = 72 U/L 34-122 6824334281) ALTv (test code = 18 U/L 5-35 1742-6) AST(SGOT) (test code = 29 U/L 13-40 6060911047) eGFR (test code = mL/min/1.73m2 7347871449) VERITO (test code = VERITO) Association of [...] tests). Lab Interpretation Abnormal (test code = 36581-6) [facility] 15:[facility]17 Test Item Value Reference Range Interpretation Comments MAGNESIUM (test code = 6887976880) 1.7 mg/dL 1.7-2.4 Lab Interpretation (test code = Normal 79173-0) [facility] [id number] 15:08:57 Test Item Value Reference Range Interpretation Comments CK (test code = 1268058647) 215 U/L 33-194 H Lab Interpretation (test code = Abnormal 55553-4) [facility] [id number] 14:52:13 Test Item Value Reference Range Interpretation Comments WBC (test code = See_Comment [Automated 3762-2) message] The sy stem which generated this result transmitted reference range : 4.30 - 11.10 10*3/?L. The reference range was not used to interpret this result as normal/abnormal . RBC (test code = See_Comment [Automated 625-2) message] The sy stem which generated this result transmitted reference range : 3.93 - 5.25 10*6/?L. The reference range was not used to interpret this result as normal/abnormal . HGB (test code = 11.0 g/dL 11.6-15.0 L 718-7) HCT (test code = 35.0 % 35.7-45.2 L 4544-3) MCV (test code = 79.0 fL 80.6-95.5 L 787-2) MCH (test code = 24.8 pg 25.9-32.8 L 785-6) MCHC (test code = 31.4 g/dL 31.6-35.1 L 786-4) RDW-SD (test code = 40.2 fL 39.0-49.9 87981-1) RDW-CV (test code = 14.1 % 12.0-15.5 788-0) PLT (test code = See_Comment [Automated 777-3) message] The sy stem which generated this result transmitted reference range : 166 - 358 10*3/ ?L. The reference r ryann was not used to interpret this result as normal/abnormal . MPV (test code = 10.1 fL 9.5-12.9 65142-0) NRBC/100 WBC (test See_Comment [Automat ed code = 4928878930) message] The system which generated this result transmitted reference range : 0.0 - 10.0 /100 WBCs. The refer ence range was not u sed to interpret th is result as normal/abnormal . NRBC x10^3 (test code <0.01 See_Comment [Auto mated = 5195338124) message] The s ystem which generated this result transmitted reference range : 10*3/?L. The reference range was not used to interpret this result as normal/abnormal . GRAN MAT (NEUT) % 70.4 % (test code = 770-8) IMM GRAN % (test code 0.30 % = 6223762082) LYMPH % (test code = 20.3 % 736-9) MONO % (test code = 6.9 % 5905-5) EOS % (test code = 1.5 % 713-8) BASO % (test code = 0.6 % 706-2) GRAN MAT x10^3(ANC) 5.01 10*3/uL 1.88-7.09 (test code = [id number]) IMM GRAN x10^3 (test <0.03 0.00-0.06 code = [id number]) LYMPH x10^3 (test code 1.44 10*3/uL 1.32-3.29 = 731-0) MONO x10^3 (test code 0.49 10*3/uL 0.33-0.92 = 742-7) EOS x10^3 (test code = 0.11 10*3/uL 0.03-0.39 711-2) BASO x10^3 (test code 0.04 10*3/uL 0.01-0.07 = 704-7) Lab Interpretation Abnormal (test code = 57801-3) [facility]2022-04-27 06:18:00 Test Item Value Reference Range Interpretation Comments WBC (test code = WBC) 10.8 3.7-10.4 [place] [address]-04-27 06:18:00 Test Item Value Reference Range Interpretation Comments RBC (test code = RBC) 4.83 4.20-5.40 [place] [address]-04-27 06:18:00 Test Item Value Reference Range Interpretation Comments Hgb (test code = Hgb) 11.9 12.0-16.0 [place] [address]-04-27 06:18:00 Test Item Value Reference Range Interpretation Comments Hct (test code = Hct) 36.9 36.0-48.0 [place] [address]-04-27 06:18:00 Test Item Value Reference Range Interpretation Comments MCV (test code = MCV) 76.4 80.0-98.0 [place] [address]-04-27 06:18:00 Test Item Value Reference Range Interpretation Comments MCH (test code = MCH) 24.6 pg 27.0-31.0 [place] [address]-04-27 06:18:00 Test Item Value Reference Range Interpretation Comments MCHC (test code = MCHC) 32.3 32.0-36.0 [place] [address]-04-27 06:18:00 Test Item Value Reference Range Interpretation Comments RDW (test code = RDW) 14.0 11.5-14.5 [place] [address]-04-27 06:18:00 Test Item Value Reference Range Interpretation Comments Platelet (test code = Platelet) 240 133-450 [place] [address]-04-27 06:18:00 Test Item Value Reference Range Interpretation Comments MPV (test code = MPV) 8.0 7.4-10.4 [facility]91[facility]47[facility] 06:18:00 Test Item Value Reference Range Interpretation Comments RBC Morph (test code = Normal (12/06/21 1:18 RBC Morph) AM) [place] [address]-04-27 06:18:00 Test Item Value Reference Range Interpretation Comments Plt Morph (test code = Normal (12/06/21 1:18 Plt Morph) AM) [facility]JbndkxhHWLLDUSQRJ2754-31-00 06:18:00 Test Item Value Reference Range Interpretation Comments Segs (test code = Segs) 89.2 45.0-75.0 [place] [address]-04-27 06:18:00 Test Item Value Reference Range Interpretation Comments Lymphocytes (test code = Lymphocytes) 6.3 20.0-40.0 [place] [address]-04-27 06:18:00 Test Item Value Reference Range Interpretation Comments Monocytes (test code = Monocytes) 4.3 2.0-12.0 [facility]LbfqvshELEPONPYZO0407-85-75 06:18:00 Test Item Value Reference Range Interpretation Comments Basophils (test code = 0.2 See_Comment [Aut omated message] The Basophils) system which ge nerated this result tra nsmitted reference range : <=1.0. The reference r ryann was not used to int erpret this result as normal/abnormal . [facility] CenterOueulilNHHJDMYUFS5072-01-75 06:18:00 Test Item Value Reference Range Interpretation Comments Neutrophils # (test code = Neutrophils 9.6 1.5-8.1 #) [facility] CenterStdkujrHGVFHBGQZP5530-72-60 06:18:00 Test Item Value Reference Range Interpretation Comments Lymphocytes # (test code = Lymphocytes 0.7 1.0-5.5 #) [place] [address]-04-27 06:18:00 Test Item Value Reference Range Interpretation Comments Monocytes # (test code 0.5 See_Comment [Aut omated message] The = Monocytes #) system which generated this result tra nsmitted reference range : <=0.8. The reference r ryann was not used to int erpret this result as normal/abnormal . [place] [address]-04-27 06:18:00 Test Item Value Reference Range Interpretation Comments Microcyte (test code = 1+ *ABN*(12/06/21 Microcyte) 1:18 AM) [facility] DGZSEHE3226-56-05 13:19:00 Test Item Value Reference Range Interpretation Comments ABO/Rh (test code = ABO/Rh) O POS [facility] [place] [id number] 13:19:00 Test Item Value Reference Range Interpretation Comments Antibody Scrn (test Negative (12/05/21 8:19 code = Antibody Scrn) AM) [facility]2022-04-26 13:19:00 Test Item Value Reference Range Interpretation Comments Glucose Lvl (test code = Glucose Lvl) 88 70-99 [facility]2022-04-26 13:19:00 Test Item Value Reference Range Interpretation Comments BUN (test code = BUN) 11 - [facility]2022-04-26 13:19:00 Test Item Value Reference Range Interpretation Comments Creatinine Lvl (test code = Creatinine 0.81 0.50-1.40 Lvl) [facility]2022-04-26 13:19:00 Test Item Value Reference Range Interpretation Comments Sodium Lvl (test code = Sodium Lvl) 136 135-145 [facility]2022-04-26 13:19:00 Test Item Value Reference Range Interpretation Comments Potassium Lvl (test code = Potassium 3.5 3.5-5.1 Lvl) [facility]2022-04-26 13:19:00 Test Item Value Reference Range Interpretation Comments Chloride Lvl (test code = Chloride Lvl) 105 95-109 [facility]2022-04-26 13:19:00 Test Item Value Reference Range Interpretation Comments CO2 (test code = CO2) 28 24-32 [facility]2022-04-26 13:19:00 Test Item Value Reference Range Interpretation Comments Calcium Lvl (test code = Calcium Lvl) 8.9 8.5-10.5 [facility]2022-04-26 13:19:00 Test Item Value Reference Range Interpretation Comments AGAP (test code = AGAP) 6.5 10.0-20.0 [facility]2022-04-26 13:19:00 Test Item Value Reference Range Interpretation Comments eGFR (test code = eGFR) 100 [place] [address]-04-26 13:19:00 Test Item Value Reference Range Interpretation Comments Segs (test code = Segs) 57.3 45.0-75.0 [place] [address]-04-26 13:19:00 Test Item Value Reference Range Interpretation Comments Lymphocytes (test code = Lymphocytes) 31.8 20.0-40.0 [place] [address]-04-26 13:19:00 Test Item Value Reference Range Interpretation Comments Monocytes (test code = Monocytes) 6.9 2.0-12.[address]04-26 13:19:00 Test Item Value Reference Range Interpretation Comments Eosinophils (test code = 2.8 See_Comment [A utomated message] The Eosinophils) system which ge nerated this result tra nsmitted reference range : <=4.0. The reference r ryann was not used to int erpret this result as normal/abnormal . [address]04-26 13:19:00 Test Item Value Reference Range Interpretation Comments Basophils (test code = 1.2 See_Comment [Aut omated message] The Basophils) system which ge nerated this result tra nsmitted reference range : <=1.0. The reference r ryann was not used to int erpret this result as normal/abnormal . [place] [address]-04-26 13:19:00 Test Item Value Reference Range Interpretation Comments Neutrophils # (test code = Neutrophils 2.7 1.5-8.1 #) [address]04-26 13:19:00 Test Item Value Reference Range Interpretation Comments Lymphocytes # (test code = Lymphocytes 1.5 1.0-5.5 #) [address]04-26 13:19:00 Test Item Value Reference Range Interpretation Comments Monocytes # (test code 0.3 See_Comment [Aut omated message] The = Monocytes #) system which generated this result tra nsmitted reference range : <=0.8. The reference r ryann was not used to int erpret this result as normal/abnormal . [place] [address]-04-26 13:19:00 Test Item Value Reference Range Interpretation Comments Eosinophils # (test code 0.1 See_Comment [A utomated message] The = Eosinophils #) system whic h generated this result tra nsmitted reference range : <=0.5. The reference r ryann was not used to int erpret this result as normal/abnormal . [facility] CenterAeehfkvQYAWZMTNVD6038-39-02 13:19:00 Test Item Value Reference Range Interpretation Comments Basophils # (test code 0.1 See_Comment [Aut omated message] The = Basophils #) system which generated this result tra nsmitted reference range : <=0.2. The reference r ryann was not used to int erpret this result as normal/abnormal . [facility] CenterEqvggkhJYCMANTRJR5293-33-07 13:19:00 Test Item Value Reference Range Interpretation Comments Microcyte (test code = 1+ *ABN*(12/05/21 Microcyte) 8:19 AM) [place] [address]-04-26 13:19:00 Test Item Value Reference Range Interpretation Comments WBC (test code = WBC) 4.7 3.7-10.4 [place] [address]-04-26 13:19:00 Test Item Value Reference Range Interpretation Comments RBC (test code = RBC) 4.99 4.20-5.40 [facility] CenterKmwibzmRCDEMKVGPR4032-96-54 13:19:00 Test Item Value Reference Range Interpretation Comments Hgb (test code = Hgb) 12.5 12.0-16.0 [facility] CenterQedhvcvOOTJDMTAEM2556-20-73 13:19:00 Test Item Value Reference Range Interpretation Comments Hct (test code = Hct) 38.6 36.0-48.0 [facility] CenterIwzdygsSRZGVPFOLC0868-60-02 13:19:00 Test Item Value Reference Range Interpretation Comments MCV (test code = MCV) 77.4 80.0-98.0 [place] [address]-04-26 13:19:00 Test Item Value Reference Range Interpretation Comments MCH (test code = MCH) 25.0 pg 27.0-31.0 [facility] CenterKtndppvELBSBRJWFL8344-11-38 13:19:00 Test Item Value Reference Range Interpretation Comments MCHC (test code = MCHC) 32.2 32.0-36.0 [place] [address]-04-26 13:19:00 Test Item Value Reference Range Interpretation Comments RDW (test code = RDW) 14.0 11.5-14.5 [place] [address]-04-26 13:19:00 Test Item Value Reference Range Interpretation Comments Platelet (test code = Platelet) 240 133-450 [facility]KhissyaIXDWFFSBOU1129-58-80 13:19:00 Test Item Value Reference Range Interpretation Comments MPV (test code = MPV) 8.1 7.4-10.4 [facility], [facility], WO [id number] 00:15:00Unlisted Reason for Exam - Click Yes and Enter Reason Below->No [facility] 1995 Sex: FFINAL REPORT EXAM/TECHNIQUE: CT of the cervical spine without contrast. Dose modulation, iterative reconstruction, and/or weight based adjustment of the mA/kV was utilizedto reduce the radiation dose to as low as reasonably achievable. INDICATION: Trauma. COMPARISON: None. FINDINGS: The vertebral bodies are normal in height. No acute fracture is demonstrated. There is no sagittal listhesis. There is normal alignment of the facets. No splaying of the spinous processes. No prevertebral or epidural hematoma is visualized. The occipital condyles are intact. Temporomandibular junctions are unremarkable. No actionable thyroid nodules. No cervical lymphadenopathy. The visualized lung apices are clear. No spinal canal or neural foraminal narrowing. Impression: No acute fract ure or malalignment. Signed: Kam Arndt MDReport Verified Date/Time: 11/06/2021 00:15:51 CT, BRAIN, WITHOUT [id number] 00:13:00Unlisted Reason for Exam - Click Yes and Enter Reason Below->No [facility] : 1995 Sex: FFINAL REPORT EXAM/TECHNIQUE: Noncontrast CT of the head. Dose modulatio n, iterative reconstruction, and/or weight based adjustment of the mA/kV was utilized to reduce the radiation dose to as low as reasonably achievable. INDICATION: Trauma. COMPARISON: CT head from 09/03/2021 FINDINGS: Ventura-white differentiation is preserved. No acute intracranial hemorrhage. No extra-axial fluid collection. Ventricles are normal in appearance. Basal cisterns are patent. No midline shift. Cerebellar tonsils are normal in appearance. Orbits are normal. Paranasal sinuses are clear. Mastoid air cells are clear. No acute osseous processes or suspicious osseous lesion. Midline structures are normal. Visualized face and neck are unremarkable. Impression: No acute intracranial process. Signed: Kam Arndt MDReport Verified Date/Time: 11/06/2021 00:13:35 hCG, quantitative, [id number] 23:31:28 Test Item Value Reference Range Interpretation Comments hCG Quant (test code <1 See_Comment [Autom ated = 44526-0) message] The system which generated this result transmitted reference range : 0 - 10 mIU/mL. The reference range was not used to interpr et this result as normal/abnormal . VERITO (test code = VERITO) Non- Females: <10 mIU/mL Females: Gestation Age Reference Range(mIU/mL) 0.2-1 Week 5-50 1-2 Weeks 50-500 2-3 Weeks 100-5,000 3-4 Weeks 500-10,000 4-5 Weeks 1,000-50,000 5-6 Weeks 10,000-100,000 6-8 Weeks 15,000-200,000 2-3 Months 10,000-100,000 Guest Service Host ID - DB Lab Interpretation Normal (test code = 83174-4) [facility], [id number] 23:31:28 Test Item Value Reference Range Interpretation Comments GONADOTROPIN, CHORIONIC (HCG) QUANT < mIU/mL 0-10 (BEAKER) (test code = 649) Non- Females: <10 mIU/mL Females: Gestation Age Reference Range(mIU/mL) 0.2-1 Week 5-50 1-2 Weeks 50-500 2-3 Weeks 100-5,000 3-4 Weeks 500-10,000 4-5 Weeks 1,000-50,000 5-6 Weeks 10,000-100,000 6-8 Weeks 15,000- 200,000 2-3 Months 10,000-100,000 Guest Service Host ID - DBHigh Sens Trop I ([facility]/[place] Only)2021-11-05 23:11:39 Test Item Value Reference Range Interpretation Comments Troponin I HS (test <4 See_Comment [Automa aleks code = 62934-0) message] The system which generated this result transmitted reference range : <=17 pg/ml. The reference range was not used to interpret this result as normal/abnormal . VERITO (test code = Guest Service Host ID - VERITO) DBThe DRIVER COURIER STAT High Sensitivity Troponin-I results should be used in conjunction with other diagnostic information such as ECG, clinical observations and information, and patient symptoms to aid in the diagnosis of IL. Lab Interpretation Normal (test code = 44148-6) [facility] TROPONIN [id number] 23:11:39 Test Item Value Reference Range Interpretation Comments HIGH SENSITIVITY < pg/ml See_Comment [Automated message] TROPONIN I (test code = The system which [id number]) generated this result transmitted ref erence range: <=17. Th e reference range was not used to interpr et this result as normal/abnormal . Guest Service Host ID - DBThe DRIVER COURIER STAT High Sensitivity Troponin-I results should be used in conjunctionwith other diagnostic information such as ECG, clinical observations and information, and patient symptoms to aid in the diagnosis of IL.Comprehensive metabolic [id number] 23:05:38 Test Item Value Reference Range Interpretation Comments Protein, Total (test 7.7 See_Comment [Autom ated code = 2885-2) message] The system which generated this result transmit aleks reference range : 6.0 - 8.3 gm/dL . The reference range was not u sed to interpret th is result as normal/abnormal . Albumin (test code = 4.2 g/dL 3.5-5.0 25692-2) Alkaline Phosphatase 80 U/L 40-150 (test code = 6768-6) Total Bilirubin (test 0.4 mg/dL 0.2-1.2 code = 1974-2) Sodium (test code = 138 meq/L 131-788 0200-2) Potassium (test code 3.4 meq/L 3.5-5.1 L = 2823-3) Chloride (test code = 102 meq/L 98-107 2075-0) CO2 (test code = 26 meq/L 22-29 2028-9) BUN (test code = 11 mg/dL 7-21 3094-0) Creatinine (test code 0.78 mg/dL 0.57-1.25 = 2160-0) Glucose (test code = 100 mg/dL 70-105 2345-7) Calcium (test code = 9.0 mg/dL 8.4-10.2 55322-8) AST (test code = 22 U/L 5-34 1920-8) ALT (test code = 25 U/L 6-55 1742-6) EGFR (test code = 107 mL/min/1.73 [place] [address]-4) NOT ACCURATE CREATININE CLEARANCE IN PREDICTING GLOMERULAR FILTRATION RATE . ESTIMATED GFR I S NOT APPLICABLE FOR DIALYSIS PATIEN VERITO (test code = VERITO) Guest Service Host ID - DB Lab Interpretation Abnormal (test code = 62360-6) [facility] HospitalCOMPREHENSIVE METABOLIC [id number] 23:05:38 Test Item Value Reference Range Interpretation Comments TOTAL PROTEIN 7.7 gm/dL 6.0-8.3 (BEAKER) (test code = 770) ALBUMIN (BEAKER) 4.2 g/dL 3.5-5.0 (test code = 1145) ALKALINE PHOSPHATASE 80 U/L 40-150 (BEAKER) (test code = 346) BILIRUBIN TOTAL 0.4 mg/dL 0.2-1.2 (BEAKER) (test code = 377) SODIUM (BEAKER) (test 138 meq/L 136-145 code = 381) POTASSIUM (BEAKER) 3.4 meq/L 3.5-5.1 L (test code = 379) CHLORIDE (BEAKER) 102 meq/L 98-107 (test code = 382) CO2 (BEAKER) (test 26 meq/L 22-29 code = 355) BLOOD UREA NITROGEN 11 mg/dL 7-21 (BEAKER) (test code = 354) CREATININE (BEAKER) 0.78 mg/dL 0.57-1.25 (test code = 358) GLUCOSE RANDOM 100 mg/dL 70-105 (BEAKER) (test code = 652) CALCIUM (BEAKER) 9.0 mg/dL 8.4-10.2 (test code = 697) AST (SGOT) (BEAKER) 22 U/L 5-34 (test code = 353) ALT (SGPT) (BEAKER) 25 U/L 6-55 (test code = 347) EGFR (BEAKER) (test 107 ESTIMATE D GFR IS code = 1092) mL/min/1.73 sq NOT ACCURA TE m CREATININE CLEARANCE IN PREDICTING GLOMERULAR FILTRATION RATE . ESTIMATED GFR I S NOT APPLICABLE FOR DIALYSIS PATIEN TS. Guest Service Host ID - DBLactic acid, [id number] 22:55:53 Test Item Value Reference Range Interpretation Comments Lactate, Venous (test 0.91 mmol/L 0.50-2.20 Specim en code = 2872) slightly hemolyzed VERITO (test code = VERITO) Guest Service Host ID - DBOperator ID - DB Lab Interpretation Normal (test code = 16189-7) [facility]uraLACTIC ACID, [id number] 22:55:53 Test Item Value Reference Range Interpretation Comments LACTATE BLOOD VENOUS 0.91 mmol/L 0.50-2.20 Specime n slightly (2) (BEAKER) (test hemolyzed code = 2872) Guest Service Host ID - DBOperator ID - DBCBC with platelet count + automated diff 2021-11-05 22:47:54 Test Item Value Reference Range Interpretation Comments WBC (test code = 6690-2) 6.8 See_Comment [A utomated message] The system [employer] generated this result transmitted ref erence range: 3.5 - 10 .5 K/L. The refe rence range was not u sed to interpret this result as normal/abnor mal. RBC (test code = 789-8) 4.86 See_Comment [Au tomated message] The system [employer] generated this result transmitted ref erence range: 3.93 - 5 .22 M/L. The refe rence range was not u sed to interpret this result as normal/abnor mal. MCHC (test code = 786-4) 30.1 See_Comment L [A utomated message] The system [employer] generated this result transmitted ref erence range: 32.2 - 3 5.5 GM/DL. The refe rence range was not u sed to interpret this result as normal/abnor mal. Hematocrit (test code = 39.2 % 34.1-44.9 4544-3) MCV (test code = 787-2) 80.7 fL 79.4-94.8 MCH (test code = 785-6) 24.3 pg 25.6-32.2 L RDW (test code = 788-0) 14.6 % 11.7-14.4 H Platelets (test code = 256 See_Comment [Aut omated message] 777-3) The system [employer] generated this result transmitted ref erence range: 150 - 45 0 K/CU MM. The referen ce range was not u sed to interpret this result as normal/abnor mal. MPV (test code = 9.4 fL 9.4-12.3 94997-0) nRBC (test code = 413) 0 See_Comment [Aut omated message] The system [employer] generated this result transmitted ref erence range: 0 - 0 /1 00 WBC. The refere nce range was not u sed to interpret this result as normal/abnor mal. % Neutros (test code = 60 % 429) % Lymphs (test code = 27 % 430) % Monos (test code = 11 % 431) % Eos (test code = 432) 1 % % Baso (test code = 437) 1 % # Neutros (test code = 4.08 See_Comment [Aut omated message] 670) The system [employer] generated this result transmitted ref erence range: 1.56 - 6 .13 K/L. The refe rence range was not u sed to interpret this result as normal/abnor mal. # Lymphs (test code = 1.85 See_Comment [Auto mated message] 414) The system [employer] generated this result transmitted ref erence range: 1.18 - 3 .74 K/L. The refe rence range was not u sed to interpret this result as normal/abnor mal. # Monos (test code = 0.74 See_Comment H [Autom ated message] 415) The system [employer] generated this result transmitted ref erence range: 0.24 - 0 .36 K/L. The refe rence range was not u sed to interpret this result as normal/abnor mal. # Eos (test code = 416) 0.08 See_Comment [Au tomated message] The system [employer] generated this result transmitted ref erence range: 0.04 - 0 .36 K/L. The refe rence range was not u sed to interpret this result as normal/abnor mal. # Baso (test code = 417) 0.04 See_Comment [A utomated message] The system [employer] generated this result transmitted ref erence range: 0.01 - 0 .08 K/L. The refe rence range was not u sed to interpret this result as normal/abnor mal. Immature 0 % 0-1 Granulocytes-Relative (test code = 2801) Lab Interpretation (test Abnormal code = 48228-6) [facility] W/PLT COUNT & AUTO [id number] 22:47:54 Test Item Value Reference Range Interpretation Comments WHITE BLOOD CELL COUNT (BEAKER) 6.8 K/ L 3.5-10.5 (test code = 775) RED BLOOD CELL COUNT (BEAKER) 4.86 M/ L 3.93-5.22 (test code = 761) HEMOGLOBIN (BEAKER) (test code = 11.8 GM/DL 11.2-15.7 410) HEMATOCRIT (BEAKER) (test code = 39.2 % 34.1-44.9 411) MEAN CORPUSCULAR VOLUME (BEAKER) 80.7 fL 79.4-94.8 (test code = 753) MEAN CORPUSCULAR HEMOGLOBIN 24.3 pg 25.6-32.2 L (BEAKER) (test code = 751) MEAN CORPUSCULAR HEMOGLOBIN CONC 30.1 GM/DL 32.2-35.5 L (BEAKER) (test code = 752) RED CELL DISTRIBUTION WIDTH 14.6 % 11.7-14.4 H (BEAKER) (test code = 412) PLATELET COUNT (BEAKER) (test 256 K/CU MM 150-450 code = 756) MEAN PLATELET VOLUME (BEAKER) 9.4 fL 9.4-12.3 (test code = 754) NUCLEATED RED BLOOD CELLS 0 /100 WBC 0-0 (BEAKER) (test code = 413) NEUTROPHILS RELATIVE PERCENT 60 % (BEAKER) (test code = 429) LYMPHOCYTES RELATIVE PERCENT 27 % (BEAKER) (test code = 430) MONOCYTES RELATIVE PERCENT 11 % (BEAKER) (test code = 431) EOSINOPHILS RELATIVE PERCENT 1 % (BEAKER) (test code = 432) BASOPHILS RELATIVE PERCENT 1 % (BEAKER) (test code = 437) NEUTROPHILS ABSOLUTE COUNT 4.08 K/ L 1.56-6.13 (BEAKER) (test code = 670) LYMPHOCYTES ABSOLUTE COUNT 1.85 K/ L 1.18-3.74 (BEAKER) (test code = 414) MONOCYTES ABSOLUTE COUNT (BEAKER) 0.74 K/ L 0.24-0.36 H (test code = 415) EOSINOPHILS ABSOLUTE COUNT 0.08 K/ L 0.04-0.36 (BEAKER) (test code = 416) BASOPHILS ABSOLUTE COUNT (BEAKER) 0.04 K/ L 0.01-0.08 (test code = 417) IMMATURE GRANULOCYTES-RELATIVE 0 % 0-1 PERCENT (BEAKER) (test code = 2801) Blood Culture - Routine (Left Venipuncture)2021-09-09 07:00:34 Test Item Value Reference Range Interpretation Comments Result (test code = No growth in 5 days 6463-4) [facility] [id number] 07:00:34 Test Item Value Reference Range Interpretation Comments CULTURE (BEAKER) (test No growth in 5 days code = 1095) BLOOD [id number] 07:00:34 Test Item Value Reference Range Interpretation Comments CULTURE (BEAKER) (test No growth in 5 days code = 1095) Anti-Nuclear Antibody (ROSI)2021-09-05 13:55:57 Test Item Value Reference Range Interpretation Comments ROSI (test code = 49459-5) Negative Negative VERITO (test code = VERITO) Test performed by IFA method.Test performed by IFA method. Lab Interpretation (test Normal code = 65570-3) [facility] (ROSI)2021-09-05 13:55:57 Test Item Value Reference Range Interpretation Comments ANTI-NUCLEAR ANTIBODY (ROSI) (BEAKER) Negative Negative (test code = 418) Test performed by IFA method.Test performed by IFA method.CBC W/PLT COUNT & AUTO [id number] 06:10:59 Test Item Value Reference Range Interpretation Comments WHITE BLOOD CELL COUNT (BEAKER) 4.3 K/ L 4.0-10.0 (test code = 775) RED BLOOD CELL COUNT (BEAKER) 4.43 M/ L 4.00-5.00 (test code = 761) HEMOGLOBIN (BEAKER) (test code = 10.8 GM/DL 12.0-15.5 L 410) HEMATOCRIT (BEAKER) (test code = 34.5 % 36.0-46.0 L 411) MEAN CORPUSCULAR VOLUME (BEAKER) 77.9 fL 82.0-99.0 L (test code = 753) MEAN CORPUSCULAR HEMOGLOBIN 24.4 pg 27.0-33.0 L (BEAKER) (test code = 751) MEAN CORPUSCULAR HEMOGLOBIN CONC 31.3 GM/DL 32.0-36.0 L (BEAKER) (test code = 752) RED CELL DISTRIBUTION WIDTH 14.5 % 12.0-15.0 (BEAKER) (test code = 412) PLATELET COUNT (BEAKER) (test 194 K/CU MM 150-430 code = 756) MEAN PLATELET VOLUME (BEAKER) 10.6 fL 6.0-11.5 (test code = 754) NUCLEATED RED BLOOD CELLS 0 /100 WBC 0-0 (BEAKER) (test code = 413) NEUTROPHILS RELATIVE PERCENT 40 % (BEAKER) (test code = 429) LYMPHOCYTES RELATIVE PERCENT 38 % (BEAKER) (test code = 430) MONOCYTES RELATIVE PERCENT 12 % (BEAKER) (test code = 431) EOSINOPHILS RELATIVE PERCENT 8 % (BEAKER) (test code = 432) BASOPHILS RELATIVE PERCENT 1 % (BEAKER) (test code = 437) NEUTROPHILS ABSOLUTE COUNT 1.73 K/ L 1.80-8.00 L (BEAKER) (test code = 670) LYMPHOCYTES ABSOLUTE COUNT 1.65 K/ L 1.48-4.50 (BEAKER) (test code = 414) MONOCYTES ABSOLUTE COUNT (BEAKER) 0.51 K/ L 0.00-1.30 (test code = 415) EOSINOPHILS ABSOLUTE COUNT 0.34 K/ L 0.00-0.50 (BEAKER) (test code = 416) BASOPHILS ABSOLUTE COUNT (BEAKER) 0.06 K/ L 0.00-0.20 (test code = 417) IMMATURE GRANULOCYTES-RELATIVE 0 % 0-0 PERCENT (BEAKER) (test code = 2801) Basic Metabolic [id number] 06:02:03 Test Item Value Reference Range Interpretation Comments Sodium (test code = 139 meq/L 497-523 1583-2) Potassium (test code 3.6 meq/L 3.6-5.5 = 2823-3) Chloride (test code = 107 meq/L 98-106 H 2075-0) CO2 (test code = 23 meq/L 20-29 2028-9) BUN (test code = 4 mg/dL 10-26 L 3094-0) Creatinine (test code 0.64 mg/dL 0.50-1.20 = 2160-0) Glucose (test code = 110 mg/dL 70-110 2345-7) Calcium (test code = 8.7 mg/dL 8.5-10.5 96367-9) EGFR (test code = 134 mL/min/1.73 [place] [address]-2) m NOT ACCURATE CREATININE CLEARANCE IN PREDICTING GLOMERULAR FILTRATION RATE . ESTIMATED GFR I S NOT APPLICABLE FOR DIALYSIS PATIENTS. VERITO (test code = VERITO) Guest Service Host ID - LITOOperator ID - LITOOperator ID - LITOOperator ID - LITOOperator ID - LITOOperator ID - LITOOperator ID - LITOOperator ID - LITOOperator ID - LITOOperator ID - XIMENA Lab Interpretation Abnormal (test code = 34068-3) [facility] [id number] 06:02:03 Test Item Value Reference Range Interpretation Comments SODIUM (BEAKER) 139 meq/L 135-148 (test code = 381) POTASSIUM (BEAKER) 3.6 meq/L 3.6-5.5 (test code = 379) CHLORIDE (BEAKER) 107 meq/L 98-106 H (test code = 382) CO2 (BEAKER) (test 23 meq/L 20-29 code = 355) BLOOD UREA NITROGEN 4 mg/dL 10-26 L (BEAKER) (test code = 354) CREATININE (BEAKER) 0.64 mg/dL 0.50-1.20 (test code = 358) GLUCOSE RANDOM 110 mg/dL 70-110 (BEAKER) (test code = 652) CALCIUM (BEAKER) 8.7 mg/dL 8.5-10.5 (test code = 697) EGFR (BEAKER) (test 134 mL/min/1.73 ESTIM ATED GFR IS code = 1092) sq m NOT ACCURATE CREATININE CLEARANCE IN PREDICTING GLOMERULAR FILTRATION RATE . ESTIMATED GFR I S NOT APPLICABLE FOR DIALYSIS PATIEN TS. Guest Service Host ID - LITOOperator ID - LITOOperator ID - LITOOperator ID - LITOOperator ID - LITOOperator ID - LITOOperator ID - LITOOperator ID - LITOOperator ID - LITOOperator ID - [id number] 06:00:02 Test Item Value Reference Range Interpretation Comments Magnesium (test code = 1.9 mg/dL 1.5-3.0 79678-4) VERITO (test code = VERITO) Guest Service Host ID - LITOOperator ID - LITOOperator ID - LITOOperator ID - XIMENA Lab Interpretation (test Normal code = 70527-9) [facility] 06:00:02 Test Item Value Reference Range Interpretation Comments MAGNESIUM (BEAKER) (test code = 1.9 mg/dL 1.5-3.0 627) Guest Service Host ID - LITOOperator ID - LITOOperator ID - LITOOperator ID - LITOC- Reactive [id number] 05:58:11 Test Item Value Reference Range Interpretation Comments CRP (test code = 676) 5.49 mg/dL 0.00-0.50 H VERITO (test code = VERITO) Guest Service Host ID - XIMENA Lab Interpretation (test Abnormal code = 17798-2) [facility] [id number] 05:58:11 Test Item Value Reference Range Interpretation Comments C-REACTIVE PROTEIN (BEAKER) (test 5.49 mg/dL 0.00-0.50 H code = 676) Guest Service Host ID - LITOCT, CTANGIO [id number] 02:24:00Unlisted Reason for Exam - Click Yes and Enter Reason Below->No [facility] BUBBA CALLAHANRANJITH MARESLEILAHenna ESTRELLA : 1995 Sex: FFINAL REPORT EXAM: CT, CTANGIO BRAIN INDICATION: Headache, chronic, with new features TECHNIQUE: Helical CT of the head without IV contrast. Postcontrast CTA of the head with IV contrast. Multiplanar reconstructed images. 3D reconstructions with MIP images were performed.This exam was performed according to our departmental dose-optimization program, which includes automated exposure control, adjustment of the mA and/or kV according to patient size and/or use of iterative reconstruction technique. COMPARISON: 09/01/2021 FINDINGS:CT HEAD: Parenchyma: No evidence of infarction. No hemorrhage. No mass or mass effect. Extra-axial Collection: None Brain Volume: Expected for age Ventricular System: Normal Dural Venous Sinuses: Normal Osseous Structures: Normal Paranasal Sin uses: Predominantly clear Tympanomastoid Cavities: Normal Other: None CTA HEAD: Anterior Circulation:Right intracranial internal carotid artery (ICA): NormalRight anterior cerebral artery (CURTIS): NormalRight middle cerebral artery (MCA): Normal Left intracranial internal carotid artery (ICA): NormalLeft anterior cerebral artery (CURTIS): NormalLeft middle cerebral artery (MCA): Normal Anterior communicating artery (AComm): PresentPosterior communicating arteries (PComm): Not well-visualized bilaterally.Posterior Circulation:Right posterior cerebral artery (INSPECTOR MOTOR VEHICLES): NormalLeft posterior cerebral artery (INSPECTOR MOTOR VEHICLES): Normal Right vertebral artery (VA): NormalLeft vertebral artery (VA): NormalBasilar artery (BA):Normal Other: No aneurysm Dural Venous Sinuses: Normal IMPRESSION: 1. No acute intracranial abnormality.2. No hemodynamically significant stenosis or aneurysm. Signed: Nita Madsen MDReport Verified Date/Time: 09/04/2021 02:24:17 2D Echo W/Doppler(CW/PW/Color)2021-09-03 16:06:54Ejection FractionSLEH ECHO HEARTLAB [facility] W/PLT COUNT & AUTO [id number] 06:12:06 Test Item Value Reference Range Interpretation Comments WHITE BLOOD CELL COUNT (BEAKER) 6.7 K/ L 4.0-10.0 (test code = 775) RED BLOOD CELL COUNT (BEAKER) 4.27 M/ L 4.00-5.00 (test code = 761) HEMOGLOBIN (BEAKER) (test code = 10.3 GM/DL 12.0-15.5 L 410) HEMATOCRIT (BEAKER) (test code = 33.3 % 36.0-46.0 L 411) MEAN CORPUSCULAR VOLUME (BEAKER) 78.0 fL 82.0-99.0 L (test code = 753) MEAN CORPUSCULAR HEMOGLOBIN 24.1 pg 27.0-33.0 L (BEAKER) (test code = 751) MEAN CORPUSCULAR HEMOGLOBIN CONC 30.9 GM/DL 32.0-36.0 L (BEAKER) (test code = 752) RED CELL DISTRIBUTION WIDTH 14.6 % 12.0-15.0 (BEAKER) (test code = 412) PLATELET COUNT (BEAKER) (test 196 K/CU MM 150-430 code = 756) MEAN PLATELET VOLUME (BEAKER) 10.0 fL 6.0-11.5 (test code = 754) NUCLEATED RED BLOOD CELLS 0 /100 WBC 0-0 (BEAKER) (test code = 413) NEUTROPHILS RELATIVE PERCENT 59 % (BEAKER) (test code = 429) LYMPHOCYTES RELATIVE PERCENT 26 % (BEAKER) (test code = 430) MONOCYTES RELATIVE PERCENT 10 % (BEAKER) (test code = 431) EOSINOPHILS RELATIVE PERCENT 5 % (BEAKER) (test code = 432) BASOPHILS RELATIVE PERCENT 1 % (BEAKER) (test code = 437) NEUTROPHILS ABSOLUTE COUNT 3.93 K/ L 1.80-8.00 (BEAKER) (test code = 670) LYMPHOCYTES ABSOLUTE COUNT 1.74 K/ L 1.48-4.50 (BEAKER) (test code = 414) MONOCYTES ABSOLUTE COUNT (BEAKER) 0.65 K/ L 0.00-1.30 (test code = 415) EOSINOPHILS ABSOLUTE COUNT 0.32 K/ L 0.00-0.50 (BEAKER) (test code = 416) BASOPHILS ABSOLUTE COUNT (BEAKER) 0.05 K/ L 0.00-0.20 (test code = 417) IMMATURE GRANULOCYTES-RELATIVE 0 % 0-0 PERCENT (BEAKER) (test code = 2801) BASIC METABOLIC [id number] 06:09:34 Test Item Value Reference Range Interpretation Comments SODIUM (BEAKER) 139 meq/L 135-148 (test code = 381) POTASSIUM (BEAKER) 3.2 meq/L 3.6-5.5 L (test code = 379) CHLORIDE (BEAKER) 106 meq/L 98-106 (test code = 382) CO2 (BEAKER) (test 24 meq/L 20-29 code = 355) BLOOD UREA NITROGEN 5 mg/dL 10-26 L (BEAKER) (test code = 354) CREATININE (BEAKER) 0.70 mg/dL 0.50-1.20 (test code = 358) GLUCOSE RANDOM 98 mg/dL 70-110 (BEAKER) (test code = 652) CALCIUM (BEAKER) 7.8 mg/dL 8.5-10.5 L (test code = 697) EGFR (BEAKER) (test 121 mL/min/1.73 ESTIM ATED GFR IS code = 1092) sq m NOT ACCURATE CREATININE CLEARANCE IN PREDICTING GLOMERULAR FILTRATION RATE . ESTIMATED GFR I S NOT APPLICABLE FOR DIALYSIS PATIEN TS. Guest Service Host ID - LITOOperator ID - LITOOperator ID - LITOOperator ID - LITOOperator ID - LITOOperator ID - LITOOperator ID - LITOOperator ID - LITOOperator ID - LITOOperator ID - [id number] 06:04:12 Test Item Value Reference Range Interpretation Comments MAGNESIUM (BEAKER) (test code = 1.8 mg/dL 1.5-3.0 627) Guest Service Host ID - LITOOperator ID - LITOOperator ID - LITOOperator ID - LITOTroponin [id number] 07:27:11 Test Item Value Reference Range Interpretation Comments Troponin I (test code = <0.03 0.00-0.15 16959-9) VERITO (test code = VERITO) Troponin I (TnI) levels must be interpreted in the context of the presenting symptoms and the clinical findings. Elevated TnI levels indicate myocardial damage, but are not specific for ischemic heart disease. Elevated TnI levels are seen in patients with other cardiac conditions (including myocarditis and congestive heart failure), and slight TnI elevations occur in patients with other conditions, including sepsis, renal failure, acidosis, acute neurological disease, and persistent tachyarrhythmia.Opera tor ID - DSENSON Lab Interpretation (test Normal code = 28414-0) [facility]TROP[facility] [id number] 07:27:11 Test Item Value Reference Range Interpretation Comments TROPONIN I (BEAKER) (test code = 397) < ng/mL 0.00-0.15 Troponin I (TnI) levels must be interpreted in the context of the presenting symptoms and the clinical findings. Elevated TnI levels indicate myocardial damage, but are not specific for ischemic heart disease. Elevated TnI levels are seen in patients with other cardiac conditions (including myocarditis and congestive heart failure), and slight TnI elevations occur in patients with other conditions, including sepsis, renal failure, acidosis, acute neurological disease, and persistent tachyarrhythmia.Guest Service Host ID - DSENSONIron, TIBC, % sat. (without ferritin)2021-09-02 06:23:13 Test Item Value Reference Range Interpretation Comments Iron (test code = 2498-4) 16.0 ug/dL 45.0-170.0 L TIBC (test code = 2500-7) 330 ug/dL 250-550 Iron % Saturation (test 5 % 20-55 L code = 2502-3) VERITO (test code = VERITO) Guest Service Host ID - [id number] ID - [id number] Lab Interpretation (test Abnormal code = 40575-3) [facility] HospitalIRON, TIBC, % SAT. (WITHOUT FERRITIN)2021-09-02 06:23:13 Test Item Value Reference Range Interpretation Comments IRON (BEAKER) (test code = 547) 16.0 ug/dL 45.0-170.0 L TOTAL IRON BINDING CAPACITY 330 ug/dL 250-550 (BEAKER) (test code = 769) IRON % SATURATION (2) (BEAKER) 5 % 20-55 L (test code = 2590) Guest Service Host ID - [id number] ID - [id number] 05:12:03 Test Item Value Reference Range Interpretation Comments Ferritin (test code = 38.80 ng/mL 10.00-291.00 2276-4) VERITO (test code = VERITO) Guest Service Host ID - [id number] Lab Interpretation (test Normal code = 58727-5) [facility]FERRITIN2022-[facility] 05:12:03 Test Item Value Reference Range Interpretation Comments FERRITIN (BEAKER) (test code = 38.80 ng/mL 10.00-291.00 361) Guest Service Host ID - lcye50DEX/Free T4 If Xzzpbraei2566-45-08 05:11:18 Test Item Value Reference Range Interpretation Comments TSH (test code = 0.450 See_Comment [Automated 00731-7) message] The system which generated this result transmit aleks reference range : 0.350 - 5.500 uIU/mL. The reference range was not used to interpret this result as normal/abnormal . VERITO (test code = VERITO) Guest Service Host ID - [id number] Lab Interpretation Normal (test code = 50562-1) [facility] HospitalTSH/FREE T4 IF [id number] 05:11:18 Test Item Value Reference Range Interpretation Comments THYROID STIMULATING HORMONE 0.450 uIU/mL 0.350-5.500 (BEAKER) (test code = 772) Guest Service Host ID - [id number] [id number] 04:58:50 Test Item Value Reference Range Interpretation Comments TROPONIN I (BEAKER) (test code = 397) < ng/mL 0.00-0.15 Troponin I (TnI) levels must be interpreted in the context of the presenting symptoms and the clinical findings. Elevated TnI levels indicate myocardial damage, but are not specific for ischemic heart disease. Elevated TnI levels are seen in patients with other cardiac conditions (including myocarditis and congestive heart failure), and slight TnI elevations occur in patients with other conditions, including sepsis, renal failure, acidosis, acute neurological disease, and persistent tachyarrhythmia.Guest Service Host ID - [id number] METABOLIC [id number] 04:52:40 Test Item Value Reference Range Interpretation Comments SODIUM (BEAKER) 140 meq/L 135-148 (test code = 381) POTASSIUM (BEAKER) 3.1 meq/L 3.6-5.5 L (test code = 379) CHLORIDE (BEAKER) 106 meq/L 98-106 (test code = 382) CO2 (BEAKER) (test 23 meq/L 20-29 code = 355) BLOOD UREA NITROGEN 6 mg/dL 10-26 L (BEAKER) (test code = 354) CREATININE (BEAKER) 0.76 mg/dL 0.50-1.20 (test code = 358) GLUCOSE RANDOM 122 mg/dL 70-110 H (BEAKER) (test code = 652) CALCIUM (BEAKER) 8.3 mg/dL 8.5-10.5 L (test code = 697) EGFR (BEAKER) (test 110 mL/min/1.73 ESTIM ATED GFR IS code = 1092) sq m NOT ACCURATE CREATININE CLEARANCE IN PREDICTING GLOMERULAR FILTRATION RATE . ESTIMATED GFR I S NOT APPLICABLE FOR DIALYSIS PATIEN TS. Guest Service Host ID - [id number] ID - [id number] ID - [id number] ID - [id number] ID - nsow10Ludhukro ID - pgzq16Wwusmwdq ID - sebs41Yldpbvqh ID - czin93Pymfftth ID - pehr50Dkwmrxze ID - tolv66SGLITVQCZ1690-95-02 04:49:10 Test Item Value Reference Range Interpretation Comments MAGNESIUM (BEAKER) (test code = 1.7 mg/dL 1.5-3.0 627) Guest Service Host ID - [id number] ID - [id number] ID - [id number] ID - [id number] Lipid [id number] 04:49:09 Test Item Value Reference Range Interpretation Comments Triglycerides (test 95 mg/dL code = 2571-8) Cholesterol (test code 172 mg/dL = 2093-3) HDL (test code = 64 mg/dL 2085-9) LDL Calculated (test 89 mg/dL code = 30892-1) VERITO (test code = VERITO) Triglyceride Reference Range: Low Risk <150 Borderline 150-199 High Risk 200-499 Very High Risk >=500 Cholesterol Reference Range: Low Risk <200 Borderline 200-239 High Risk >240 HDL Cholesterol Reference Range: Low Risk >=60 High Risk <40 LDL Cholesterol Reference Range: Optimal <100 Near Optimal 100-129 Borderline 130-159 High 160-189 Very High >=190 Guest Service Host ID - [id number] ID - [id number] ID - [email or web address] [facility] HospitalLIPID [id number] 04:49:09 Test Item Value Reference Range Interpretation Comments TRIGLYCERIDES (BEAKER) (test code = 95 mg/dL 540) CHOLESTEROL (BEAKER) (test code = 172 mg/dL 631) HDL CHOLESTEROL (BEAKER) (test code 64 mg/dL = 976) LDL CHOLESTEROL CALCULATED (BEAKER) 89 mg/dL (test code = 633) Triglyceride Reference Range: Low Risk <150 Borderline 150-199 High Risk 200- 499 Very High Risk >=500Cholesterol Reference Range: Low Risk <200 Borderline 200-239 High Risk >240HDL Cholesterol Reference Range: Low Risk >=60 High Risk <40LDL Cholesterol Reference Range: Optimal <100 Near Optimal 100-129 Borderline 130-159 High 160-189 Very High >=190 Guest Service Host ID - [id number] ID - crkq83Poufjotg ID - ylvp25Pnsgroijyl3971-15-69 04:46:26 Test Item Value Reference Range Interpretation Comments Phosphorus (test code = 2.4 mg/dL 2.5-4.5 L 2777-1) VERITO (test code = VERITO) Guest Service Host ID - [id number] Lab Interpretation (test Abnormal code = 22422-5) [facility]PHOSPHORUS2022-[facility] 04:46:26 Test Item Value Reference Range Interpretation Comments PHOSPHORUS (BEAKER) (test code = 2.4 mg/dL 2.5-4.5 L 604) Guest Service Host ID - [id number] [id number] 04:45:03 Test Item Value Reference Range Interpretation Comments Hemoglobin A1C (test code 5.4 % 4.3-6.1 = 4548-4) VREITO (test code = VERITO) Guest Service Host ID - [id number] Lab Interpretation (test Normal code = 46945-6) [facility] HospitalHEMOGLOBIN [id number] 04:45:03 Test Item Value Reference Range Interpretation Comments HEMOGLOBIN A1C (BEAKER) (test code = 5.4 % 4.3-6.1 368) Guest Service Host ID - [id number] time/[id number] 04:30:40 Test Item Value Reference Interpretation Comments Range Protime (test code = 10.7 See_Comment Final 5902-2) Information (Auto Output) [Automated message] The system which generated this result transmitted reference range : 9.3 - 12.0 seconds. The reference range was not used to interpret this result as normal/abnormal . INR (test code = 0.96 See_Comment Final 6301-6) Information (Auto Output) [Automated message] The system which generated this result transmitted reference range : <=5.90. The reference range was not used to interpret this result as normal/abnormal . VERITO (test code = RECOMMENDED VERITO) COUMADIN/WARFARIN INR THERAPY RANGESSTANDARD DOSE: 2.0 - 3.0 Includes: PROPHYLAXIS for venous thrombosis, systemic embolization; TREATMENT for venous thrombosis and/or pulmonary embolus.HIGH RISK: Target INR is 2.5-3.5 for patients with mechanical heart valves. Lab Interpretation Normal (test code = 08159-7) [facility] HospitalPROTHROMBIN TIME/[id number] 04:30:40 Test Item Value Reference Range Interpretation Comments PROTIME (BEAKER) 10.7 seconds 9.3-12.0 Final Infor mation (test code = 759) (Auto Outp ut) INR (BEAKER) (test 0.96 See_Comment Final Inf ormation code = 370) (Auto Output) [Automated mess age] The system [employer] generated this result transmitted ref erence range: <=5.90. The reference range was not used to int erpret this result as normal/abnormal . RECOMMENDED COUMADIN/WARFARIN INR THERAPY RANGESSTANDARD DOSE: 2.0 - 3.0 Includes: PROPHYLAXIS for venous thrombosis, systemic embolization; TREATMENT for venous thrombosis and/or pulmonary embolus.HIGH RISK: Target INR is 2.5-3.5 for patients with mechanical heart valves.CBC W/PLT COUNT & AUTO [id number] 04:16:51 Test Item Value Reference Range Interpretation Comments WHITE BLOOD CELL COUNT (BEAKER) 7.4 K/ L 4.0-10.0 (test code = 775) RED BLOOD CELL COUNT (BEAKER) 4.44 M/ L 4.00-5.00 (test code = 761) HEMOGLOBIN (BEAKER) (test code = 10.8 GM/DL 12.0-15.5 L 410) HEMATOCRIT (BEAKER) (test code = 34.1 % 36.0-46.0 L 411) MEAN CORPUSCULAR VOLUME (BEAKER) 76.8 fL 82.0-99.0 L (test code = 753) MEAN CORPUSCULAR HEMOGLOBIN 24.3 pg 27.0-33.0 L (BEAKER) (test code = 751) MEAN CORPUSCULAR HEMOGLOBIN CONC 31.7 GM/DL 32.0-36.0 L (BEAKER) (test code = 752) RED CELL DISTRIBUTION WIDTH 14.5 % 12.0-15.0 (BEAKER) (test code = 412) PLATELET COUNT (BEAKER) (test 204 K/CU MM 150-430 code = 756) MEAN PLATELET VOLUME (BEAKER) 10.6 fL 6.0-11.5 (test code = 754) NUCLEATED RED BLOOD CELLS 0 /100 WBC 0-0 (BEAKER) (test code = 413) NEUTROPHILS RELATIVE PERCENT 63 % (BEAKER) (test code = 429) LYMPHOCYTES RELATIVE PERCENT 24 % (BEAKER) (test code = 430) MONOCYTES RELATIVE PERCENT 9 % (BEAKER) (test code = 431) EOSINOPHILS RELATIVE PERCENT 3 % (BEAKER) (test code = 432) BASOPHILS RELATIVE PERCENT 1 % (BEAKER) (test code = 437) NEUTROPHILS ABSOLUTE COUNT 4.69 K/ L 1.80-8.00 (BEAKER) (test code = 670) LYMPHOCYTES ABSOLUTE COUNT 1.76 K/ L 1.48-4.50 (BEAKER) (test code = 414) MONOCYTES ABSOLUTE COUNT (BEAKER) 0.70 K/ L 0.00-1.30 (test code = 415) EOSINOPHILS ABSOLUTE COUNT 0.21 K/ L 0.00-0.50 (BEAKER) (test code = 416) BASOPHILS ABSOLUTE COUNT (BEAKER) 0.07 K/ L 0.00-0.20 (test code = 417) IMMATURE GRANULOCYTES-RELATIVE 0 % 0-0 PERCENT (BEAKER) (test code = 2801) MR, BRAIN, [id number] 03:45:00Unlisted Reason for Exam - Click Yes and Enter Reason Below->NoDeos the patient have an implantedelectronic device?->No [facility] : 1995 Sex: FFINAL REPORT EXAM: MR, BRAIN, WITH \\T\\ WITHOUT CONTRAST CLINICAL INDICA TION: Syncope. TECHNIQUE: Pre-contrast sagittal and axial T1-w, and axial T2- FLAIR, GRE, and diffusion-w sequences of the brain with ADC maps. Post-contrast axial fat-saturated T2-w and T1-w, and sagittal volumetric T1-w images of the brain with axial and coronal reformations. Intravenous contrast material was administered for the examination.ESRC.2.1.3 COMPARISON: CT from the same day. FINDINGS: Theinferior aspect of the cerebellum was not entirely included within the cwegx-ms-ilel on axial sequences. Parenchyma: No infarction on DWI. No hemorrhage. No mass or mass effect. Abnormal Enhancement: None Extra-axial Collection: None Ventricular System: Normal Major Intracranial Flow Voids: Normal Osseous Structures: Expected marrow signal. Included Orbits: Normal Paranasal Sinuses: Predominantly clear Tympanomastoid Cavities: Normal IMPRESSION: The inferior aspect of the cerebellum was not entirelyincluded within the qpwfn-sq-odww.. Otherwise, unremarkable MRI of the brain without and with contrast. No finding to account for syncope. Signed: Nita Madsenepevon Verified Date/Time: 09/02/2021 03:45:34 Rapid drug screen, [id number] 23:47:37 Test Item Value Reference Range Interpretation Comments Barbiturate Screen Negative Negative (test code = 80528-0) Benzodiazepine Screen Positive Negative A (test code = 90003-4) Cocaine (Metab.) Negative Negative Screen (test code = 3397-7) Methadone Screen (test Negative Negative code = 38961-8) Opiate Screen (test Negative Negative code = 56758-3) Cannabinoid Screen Positive Negative A (test code = 65053-5) Amph/Methamph Screen Negative Negative (test code = 82443-8) Phencyclidine Screen Negative Negative (test code = 48670-8) pH, UA (test code = 6.5 5.0-8.0 5803-2) VERITO (test code = VERITO) DRUG CUTOFF CONC.Cocaine 300 ng/mL Cannabinoid 50 ng/mLBenzodiazepine 200 ng/mLBarbiturate 200 ng/mLPhencyclidine 25 ng/mLOpiate 300 ng/mLMethadone 300 ng/mLAmphetamine/ 1000 ng/mL Methamphetamine This assay provides an unconfirmed qualitative test result for the clinical management of patients in emergency situations. Chain of custody not maintained. Some etha-zvw-noemssx medications, as well as adulterants, may cause inaccurate results. Clinical correlation should be applied. A more comprehensive drug screen or confirmation of a detected drug may be performed upon request.Guest Service Host ID - ERINYOperator ID - ERINYOperator ID - ERINYOperator ID - ERINYOperator ID - ERINYOperator ID - ERINYOperator ID - ERINYOperator ID - ERINY Lab Interpretation Abnormal (test code = 09973-1) [facility] [id number] 23:47:37 Test Item Value Reference Range Interpretation Comments BARBITURATE URINE (BEAKER) (test Negative Negative code = 725) BENZODIAZEPINE SCREEN URINE (BEAKER) Positive Negative A (test code = 726) COCAINE (METAB.) SCREEN (BEAKER) Negative Negative (test code = 1164) METHADONE SCREEN (BEAKER) (test code Negative Negative = 1436) OPIATE SCREEN URINE (BEAKER) (test Negative Negative code = 734) CANNABINOID SCREEN URINE (BEAKER) Positive Negative A (test code = 727) AMPH/METHAMPH SCREEN (BEAKER) (test Negative Negative code = 1438) PHENCYCLIDINE SCREEN URINE (BEAKER) Negative Negative (test code = 608) PH UA (BEAKER) (test code = 467) 6.5 5.0-8.0 DRUG CUTOFF CONC.Cocaine 300 ng/mL Cannabinoid 50 ng/mLBenzodiazepine 200 ng/mLBarbiturate 200 ng/mLPhencyclidine 25 ng/mLOpiate 300 ng/mLMethadone 300 ng/mLAmphetamine/ 1000 ng/mL MethamphetamineThis assay provides an unconfirmed qualitative test result for the clinical management of patients in emergency situations. Chain of custody not maintained. Some jnoa-yrd-tdceopa medications, as well as adulterants, may cause inaccurate results. Clinical correlation should be applied. A more comprehensive drug screen or confirmation of a detected drug may be performed upon request.Guest Service Host ID - ERINYOperator ID - ERINYOperator ID - ERINYOperator ID - ERINYOperator ID - ERINYOperator ID - ERINYOperator ID - ERINYOperator ID - ERINYUrinalysis w/Vwxghyxvpyj7376-12-32 22:54:11 Test Item Value Reference Range Interpretation Comments Color, UA (test code = Yellow 5778-6) Clarity, UA (test code Clear = 5767-9) Specific [place], UA 1.015 1.001-1.035 (test code = 5811-5) pH, UA (test code = 6.5 5.0-8.0 5803-2) Protein, UA (test code Negative Negative = 73086-2) Glucose, UA (test code Negative Negative = 365) Ketones, UA (test code Negative Negative = 2514-8) Bilirubin, UA (test Negative Negative code = 72861-9) Blood, UA (test code = Negative Negative 46612-1) Nitrite, UA (test code Negative Negative = 5802-4) Leukocytes, UA (test Negative Negative code = 5799-2) Urobilinogen, UA (test 0.2 mg/dL 0.2-1.0 code = 62335-9) Bacteria, UA (test Rare code = 98992-0) RBC, UA (test code = None Seen See_Comment [Autom ated message] 799-7) The system [employer] generated this result transmitted ref erence range: /HPF. Th e reference range was not used to int erpret this result as normal/abnormal . WBC, UA (test code = None Seen See_Comment [Autom ated message] 36249-4) The system [employer] generated this result transmitted ref erence range: /HPF. Th e reference range was not used to int erpret this result as normal/abnormal . SQUAMOUS EPITHELIAL 5-10 See_Comment [Automa aleks message] (test code = 49934-6) The sy stem which generated this result transmitted ref erence range: /HPF. Th e reference range was not used to int erpret this result as normal/abnormal . Specimen Source (test code = 2795) [facility] [id number] 22:54:11 Test Item Value Reference Range Interpretation Comments COLOR (BEAKER) (test code = Yellow 470) CLARITY (BEAKER) (test code = Clear 469) SPECIFIC GRAVITY UA (BEAKER) 1.015 1.001-1.035 (test code = 468) PH UA (BEAKER) (test code = 6.5 5.0-8.0 467) PROTEIN UA (BEAKER) (test code [...] = 463) BACTERIA (BEAKER) (test code = Rare 517) RBC UA-MANUAL (BEAKER) (test None Seen /HPF code = 1659) WBC UA-MANUAL (BEAKER) (test None Seen /HPF code = 1661) SQUAMOUS EPITHELIAL MANUAL 5-10 /HPF (BEAKER) (test code = 1663) SOURCE(BEAKER) (test code = 2795) U/S, PELVIS, WITH ENDOVAG AND [id number] 21:36:00Reason for exam:- >lower abd pain with h/o ovarian cysts [facility] 1995 Sex: FFINAL REPORT U/S, PELVIS, WITH ENDOVAG AND DOPPLER CLINICAL HISTORY: lo wer abd pain with h/o ovarian cysts Last Menstrual Period: The patient is status post hysterectomy. COMPARISON: None. TECHNIQUE: Real time two-dimensional grayscale pelvic ultrasound was performed. Color and spectral Doppler images of the adnexa were also obtained. Transabdominal and transvaginal views were obtained. FINDINGS: Uterus: Surgically absent Right ovary:Volume: 2.5 x 2.5 x 2.5 cmAppearance: Normal with Doppler flowAdnexal mass: None Left ovary:Volume: 2.8 x 1.8 x 1.8 cmAppearance: Normal with Doppler flowAdnexal mass: None Free fluid: None IMPRESSION: No sonographic correlate for the patient's pelvic pain. Normal ovaries. Status post hysterectomy Signed: Libia Sanabria Verified Date/Time: 09/01/2021 21:36:33 D-dimer, [id number] 19:10:58 Test Item Value Reference Range Interpretation Comments D-Dimer, Quant (test 0.47 See_Comment Final I nformation code = 16324-0) (Auto Output ) [Automated message] The system which generated this result transmitted reference range : <0.50 MG/L FEU. The reference range was not used to interpr et this result as normal/abnormal . VERITO (test code = REGARDING D-DIMER VERITO) RESULTS: The 98% NPV (Negative Predictive Value) for DVT/PE exclusion is 0.50 mg/L FEU as suggested by the communications writer and as approved by the FDA. Lab Interpretation Normal (test code = 46543-2) [id number] 19:10:58 Test Item Value Reference Range Interpretation Comments D-DIMER QUANTITATIVE 0.47 MG/L FEU <0.50 Final Information (IRASEMAAKER) (test code = (Auto Output) 671) REGARDING D-DIMER RESULTS: The 98% NPV (Negative Predictive Value) for DVT/PE exclusion is 0.50 mg/LFEU as suggested by the communications writer and as approved by the FDA.SARS-CoV2/RT-PCR (Symptomatic ONLY)2021-09-01 18:53:55 Test Item Value Reference Interpretation Comments Range SARS-COV2/RT-PCR Negative Negative The SARS-Co V-2 (test code = target nucleic 17952-0) acids are not detected in thi s specimen. Negat sonal results do not preclude SARS-C oV-2 infection and should not be u sed as the sole bas is for patient management decisions. Nega tive results must be combined with clinical observations, patient history , and epidemiolog ical information. A false negative result may occu r if a specimen is improperly collected, transported or handled. This S ARS CoV-2 test is a rapid, real-devon e RT-PCR test intended for th e qualitative detection of nucleic acid fr om SARS-CoV-2 in a nasopharyngeal swab specimen collec aleks from individual s suspected of COVID-19 by the ir healthcare provider. VERITO (test code = This test has been VERITO) authorized by FDA under an EUA for use by authorized laboratories. This test is only authorized for the duration of the declaration that circumstances exist justifying the authorization of emergency use of in vitro diagnostic tests for detection and/or diagnosis of COVID-19 under Section 564(b)(1) of the Federal Food, Drug and Cosmetic Act, 21 U.S.C. 360bbb-3(b)(1), unless the authorization is terminated or revoked sooner. Fact Sheet for Healthcare Providers: https://www.[employer]/Documents/Xp ert%20Xpress%20SAR S%20CoV-2/Fact%20S heets/302-3802%20S ARS-COV-2%20HEALTH CARE%20PROVIDERS%2 0FACT%20SHEET.pdf Fact Sheet for Healthcare Patients: https://www.Bus[employer]/Documents/Xp ert%20Xpress%20SAR S%20CoV-2/Fact%20S heets/302-3801%20S ARS-COV-2%20PATIEN T%20FACT%20SHEET.p df Lab Interpretation Normal (test code = 84911-1) [facility]2021-09-01 18:53:55 Test Item Value Reference Range Interpretation Comments SARS-COV2/RT-PCR Negative Negative The SARS-Co V-2 target (test code = nucleic acids a re not 8479452) detected in thi s specimen. Negative result s do not preclude SARS-C oV-2 infection and s hould not be used as the melchor e basis for patient managem ent decisions. Nega tive results must be combine d with clinical observ ations, patient history , and epidemiological information. A false negativ e result may occur if a spec imen is improperly ela ected, transported or handled. This SARS CoV-2 test is a rapid, real-time RT-PC R test intended for th e qualitative detection of nu cleic acid from SARS-CoV-2 in a nasopharyngeal swab specimen collected from individuals suspected of CO VID-19 by their healthcar e provider. This test has been authorized by FDA under an EUA for use by authorized laboratories. This test is only authorized for the duration of the declaration that circumstances exist justifying the authorization of emergency use of in vitro diagnostic tests for detection and/or diagnosis of COVID-19 under Section 564(b)(1) of the Federal Food, Drug and Cosmetic Act, 21 U.S.C. 360bbb-3(b)(1), unless the authorization is terminated or revoked sooner. Fact Sheet for Healthcare Providers: https://www.[employer] m/Documents/Xpert%20Xpress%20SARS%20CoV-2/Fact%20Sheets/302-3802%99JRKC-EIG-8%20 HEALTHCARE%20PROVIDERS%20FACT%20SHEET.pdf Fact Sheet for Healthcare Patients: https://www.El[employer]/Documents/Xpert%20Xp ress%20SARS%20CoV-2/Fact%20Sheets/302-3801%24OYPI-HOO-1%20PATIENT%20FACT%20SHEET .pdfTRANTONIOJennifer [id number] 18:23:25 Test Item Value Reference Range Interpretation Comments TROPONIN I (BEAKER) (test code = 397) < ng/mL 0.00-0.15 Troponin I (TnI) levels must be interpreted in the context of the presenting symptoms and the clinical findings. Elevated TnI levels indicate myocardial damage, but are not specific for ischemic heart disease. Elevated TnI levels are seen in patients with other cardiac conditions (including myocarditis and congestive heart failure), and slight TnI elevations occur in patients with other conditions, including sepsis, renal failure, acidosis, acute neurological disease, and persistent tachyarrhythmia.Guest Service Host ID - ERINYCT, BRAIN, WITHOUT [id number] 18:21:00Unlisted Reason for Exam - Click Yes and Enter Reason Below->No[facility] : 1995 Sex: FFINAL REPORT CT Head without contrast CLINICAL HISTORY: Syncope, simple, normal neuro exam TECHNIQUE: Contiguous axial CT images through the head without contrast. This exam was performed according to the departmental dose optimization program which includes automated exposure control, adjustment of the mA and/or kV according to the patient size, and/or use of an iterative reconstruction technique. COMPARISON: None FINDINGS: There is no CT evidence of acute infarct or intracranial hemorrhage. There is no hydrocephalus, midline shift, or apparent mass effect. There are no extra-axial fluid collections. The skull is intact. The visualized paranasal sinuses are well-aerated. IMPRESSION: No CT evidence of acute infarct, hemorrhage, or hydrocephalus. Signed: Lissette LindseyMDReport Verified Date/Time: 09/01/2021 18:21:53 BASI METABOLIC [id number] 18:16:13 Test Item Value Reference Range Interpretation Comments SODIUM (BEAKER) 136 meq/L 135-148 (test code = 381) POTASSIUM (BEAKER) 4.2 meq/L 3.6-5.5 Specimen markedly (test code = 379) hemolyzed CHLORIDE (BEAKER) 104 meq/L 98-106 (test code = 382) CO2 (BEAKER) (test 19 meq/L 20-29 L code = 355) BLOOD UREA NITROGEN 6 mg/dL 10-26 L (BEAKER) (test code = 354) CREATININE (BEAKER) 0.81 mg/dL 0.50-1.20 Specimen markedly (test code = 358) hemolyzed GLUCOSE RANDOM 92 mg/dL 70-110 (BEAKER) (test code = 652) CALCIUM (BEAKER) 8.2 mg/dL 8.5-10.5 L (test code = 697) EGFR (BEAKER) (test 102 mL/min/1.73 ESTIM ATED GFR IS code = 1092) sq m NOT ACCURATE CREATININE CLEARANCE IN PREDICTING GLOMERULAR FILTRATION RATE . ESTIMATED GFR I S NOT APPLICABLE FOR DIALYSIS PATIEN TS. Guest Service Host ID - ERINYOperator ID - ERINYOperator ID - ERINYOperator ID - ERINYOperator ID - ERINYOperator ID - ERINYOperator ID - ERINYOperator ID - ERINYOperator ID - ERINYOperator ID - ERINYOperator ID- ERINYOperator ID - ERINYOperator ID - ERINYRAD, CHEST, 1 VIEW, NON [id number] 18:11:00Reason for exam:->HEADACHEReason for exam:->LOSS OF CONSCIOUSNESSShould this be performed at the bedside?->Yes [facility] 1995 Sex: FFINAL REPORT RAD, CHEST, 1 VIEW, NON DEPT TECHNIQUE: Frontal view(s) of the chest. INDICATION: HEADACHELOSS OF CONSCIOUSNESS COMPARISON: 11/21/2020 chest radiograph FINDINGS/IMPRESSION: Lines/Tubes: None Lungs/pleura: Lungs are clear and well inflated. No pleural effusion.No pneumothorax. Heart and Mediastinum: Unremarkable. Soft Tissues and Bones: Cholecystectomy clips in the right upper quadrant of the abdomen. Signed: Libia Sanabria MDReport Verified Date/Time: 09/01/2021 18:11:00 CBC W/PLT COUNT & AUTO [id number] 18:08:05 Test Item Value Reference Range Interpretation Comments WHITE BLOOD CELL COUNT (BEAKER) 7.8 K/ L 4.0-10.0 (test code = 775) RED BLOOD CELL COUNT (BEAKER) 4.84 M/ L 4.00-5.00 (test code = 761) HEMOGLOBIN (BEAKER) (test code = 11.7 GM/DL 12.0-15.5 L 410) HEMATOCRIT (BEAKER) (test code = 37.3 % 36.0-46.0 411) MEAN CORPUSCULAR VOLUME (BEAKER) 77.1 fL 82.0-99.0 L (test code = 753) MEAN CORPUSCULAR HEMOGLOBIN 24.2 pg 27.0-33.0 L (BEAKER) (test code = 751) MEAN CORPUSCULAR HEMOGLOBIN CONC 31.4 GM/DL 32.0-36.0 L (BEAKER) (test code = 752) RED CELL DISTRIBUTION WIDTH 14.7 % 12.0-15.0 (BEAKER) (test code = 412) PLATELET COUNT (BEAKER) (test 211 K/CU MM 150-430 code = 756) MEAN PLATELET VOLUME (BEAKER) 10.2 fL 6.0-11.5 (test code = 754) NUCLEATED RED BLOOD CELLS 1 /100 WBC 0-0 H (BEAKER) (test code = 413) NEUTROPHILS RELATIVE PERCENT 72 % (BEAKER) (test code = 429) LYMPHOCYTES RELATIVE PERCENT 15 % (BEAKER) (test code = 430) MONOCYTES RELATIVE PERCENT 10 % (BEAKER) (test code = 431) EOSINOPHILS RELATIVE PERCENT 2 % (BEAKER) (test code = 432) BASOPHILS RELATIVE PERCENT 1 % (BEAKER) (test code = 437) NEUTROPHILS ABSOLUTE COUNT 5.60 K/ L 1.80-8.00 (BEAKER) (test code = 670) LYMPHOCYTES ABSOLUTE COUNT 1.19 K/ L 1.48-4.50 L (BEAKER) (test code = 414) MONOCYTES ABSOLUTE COUNT (BEAKER) 0.74 K/ L 0.00-1.30 (test code = 415) EOSINOPHILS ABSOLUTE COUNT 0.17 K/ L 0.00-0.50 (BEAKER) (test code = 416) BASOPHILS ABSOLUTE COUNT (BEAKER) 0.05 K/ L 0.00-0.20 (test code = 417) IMMATURE GRANULOCYTES-RELATIVE 0 % 0-0 PERCENT (BEAKER) (test code = 2801) BASIC METABOLIC PANEL (NA, K, CL, CO2, GLUCOSE, BUN, CREATININE, CA)2021-04-03 17:09:54 Test Item Value Reference Range Interpretation Comments NA (test code = 135 mmol/L 135-145 8639540505) K (test code = 3.9 mmol/L 3.5-5.0 9233900336) CL (test code = 104 mmol/L 98-108 5233845659) CO2 TOTAL (test code 28 mmol/L 23-31 = 9034156967) AGAP (test code = 2-16 3170038073) BUN (test code = 11 mg/dL 7-23 6215467682) GLUCOSE (test code = 96 mg/dL 70-110 9013100019) CREATININE (test code 0.55 mg/dL 0.50-1.04 = 7232657058) CALCIUM (test code = 8.9 mg/dL 8.6-10.6 4625113557) eGFR (test code = mL/min/1.73m2 0710671106) VERITO (test code = VERITO) Association of Glomerular Filtration Rate (GFR) and Staging of Kidney Disease* + + +- +| GFR (mL/min/1.73 m2) ?| With Kidney Damage ?| ?Without Kidney Damage+ ------+ ----+ ------+| ?>90 ?| ?Stage one ?| ? Normal ?+ -+ + -+| ?60-89 ?| ?Stage two ?| ? Decreased GFR ? + + +- +| ?30-59 ?| ?Stage three ?| ? Stage three ? + + +- +| ?15-29 ?| ?Stage four ? | ? Stage four ?+ -+ + -+| ?<15 (or dialysis) ? ?| ?Stage five ? | ? Stage five ?+ -+ + -+ *Each stage assumes the associated GFR level [...] or urine or abnormalities in imaging tests). [facility]2021[facility]23 17:09:39 Test Item Value Reference Range Interpretation Comments APPEARANCE (test code = Clear Clear 2251991033) COLOR (test code = Yellow Yellow 9493606714) PH (test code = 4.8-8.0 2749084213) SP GRAVITY (test code = 1.003-1.030 0799321530) GLU U QUAL (test code = Normal Normal 9883480454) BLOOD (test code = Negative Negative 1162667168) KETONES (test code = Negative Negative 9068574575) PROTEIN (test code = Negative Negative 2887-8) UROBILIN (test code = Normal Normal 0267242707) BILIRUBIN (test code = Negative Negative 6056993888) NITRITE (test code = Negative Negative 2588337271) LEUK MICHAEL (test code = Negative Negative 9656273884) RBC/HPF (test code = <1 See_Comment [Autom ated message] 8755365989) The system [employer] generated this result transmitted ref erence range: 0 - 3 HP F. The reference range was not used to int erpret this result as normal/abnormal . WBC/HPF (test code = <1 See_Comment [Autom ated message] 5529744595) The system [employer] generated this result transmitted ref erence range: 0 - 5 HP F. The reference range was not used to int erpret this result as normal/abnormal . BACTERIA (test code = Negative Negative 0405895773) MUCOUS (test code = Slight Negative LPF A 6652851878) SQ EPITH (test code = HPF 6678108821) Lab Interpretation (test Abnormal code = 81381-6) [facility] PasoHEPAT[facility] FUN[facility] PAN[facility] (29946) (ALB,T.PRO,BILI T,BU/BC,ALT,AST,ALK PHOS)2021-04-03 17:08:52 Test Item Value Reference Range Interpretation Comments TOTAL BILI (test code = 9085539225) 0.3 mg/dL 0.1-1.1 BILI UNCON (test code = 5966332171) 0.2 mg/dL 0.1-1.1 BILI CONJ (test code = 0272034082) 0.0 mg/dL 0.0-0.3 T PROTEIN (test code = 7204687214) 7.3 g/dL 6.3-8.2 ALBUMIN (test code = 4953945659) 4.1 g/dL 3.5-5.0 ALK PHOS (test code = 6047104332) 70 U/L 34-122 ALTv (test code = 1742-6) 18 U/L 5-35 AST(SGOT) (test code = 0144474450) 35 U/L 13-40 Lab Interpretation (test code = Normal 66546-5) [facility] PasoLIPASE2021-08-23 17:08:52 Test Item Value Reference Range Interpretation Comments LIPASE (test code = 6520295620) 18 U/L 0-220 Lab Interpretation (test code = Normal 21569-3) [facility] PasoCB WITH [id number] 16:51:50 Test Item Value Reference Range Interpretation Comments WBC (test code = See_Comment [Automated 4287-2) message] The sy stem which generated this result transmitted reference range : 4.30 - 11.10 10*3/?L. The reference range was not used to interpret this result as normal/abnormal . RBC (test code = See_Comment [Automated 749-8) message] The sy stem which generated this [...] RDW-SD (test code = 39.4 fL 39.0-49.9 83395-7) RDW-CV (test code = 14.4 % 12.0-15.5 788-0) PLT (test code = See_Comment [Automated 147-3) message] The sy stem which generated this result transmitted reference range : 166 - 358 10*3/ ?L. The reference r ryann was not used to interpret this result as normal/abnormal . MPV (test code = 9.8 fL 9.5-12.9 76711-3) NRBC/100 WBC (test See_Comment [Automat ed code = 4365120422) message] The system which generated this result transmitted reference range : 0.0 - 10.0 /100 WBCs. The refer ence range was not u sed to interpret th is result as normal/abnormal . NRBC x10^3 (test code <0.01 See_Comment [Auto mated = 6274682791) message] The s ystem which generated this result transmitted reference range : 10*3/?L. The reference range was not used to interpret this result as normal/abnormal . GRAN MAT (NEUT) % 54.3 % (test code = 770-8) IMM GRAN % (test code 0.20 % = 0029379529) LYMPH % (test code = 33.6 % 736-9) MONO % (test code = 8.6 % 5905-5) EOS % (test code = 2.2 % 713-8) BASO % (test code = 1.1 % 706-2) GRAN MAT x10^3(ANC) 2.46 10*3/uL 1.88-7.09 (test code = 3069966860) IMM GRAN x10^3 (test <0.03 0.00-0.06 code = 5771139190) LYMPH x10^3 (test code 1.52 10*3/uL 1.32-3.29 = 731-0) MONO x10^3 (test code 0.39 10*3/uL 0.33-0.92 = 742-7) EOS x10^3 (test code = 0.10 10*3/uL 0.03-0.39 711-2) BASO x10^3 (test code 0.05 10*3/uL 0.01-0.07 = 704-7) Lab Interpretation Abnormal (test code = 19354-1) [facility] PasoCOMPREHENSIVE METABOLIC [id number] 02:06:00 Test Item Value Reference Range Interpretation [...] S NOT APPLICABLE FOR DIALYSIS PATIEN TS. Guest Service Host ID - JUSTINOperator ID - JUSTINOperator ID - JUSTINOperator ID - JUSTINOperator ID - JUSTINOperator ID - JUSTINOperator ID - JUSTINOperator ID - JUSTINOperator ID - JUSTINOperator ID - JUSTINOperator ID - JUSTINOperator ID - JUSTINOperator ID - JUSTINOperator ID - JUSTINOperator ID - JUSTINOperator ID - JUSTINOperator ID - JUSTINOperator ID - JUSTINOperator ID - JUSTINCBC W/PLT COUNT & AUTO [id number] 01:38:00 Test Item Value Reference Range Interpretation [...] PERCENT (BEAKER) (test code = 2801) CT, [id number] 20:33:00Unlisted Reason for Exam - Click Yes and Enter Reason Below->NoWill this procedure require oral contrast?->No [facility] 1995 Sex: FFINAL REPORT ABDOMINAL AND PELVIS CT DATED 11/21/2020 CLINICAL INFORMATI ON: Abdominal pain, feverAbdominal infection suspectedNausea/vomiting TECHNIQUE: Axial images of theabdomen and pelvis were obtained from diaphragm to [...] large bowel and rectum suggestive of constipation. Ut erus is surgically absent. A 3.1 x 3.6 cm cyst is seen in the left adnexa suggestive of ovarian cyst. The urinary bladder is contracted. No mass, adenopathy or ascites is present. IMPRESSION: 1. Findings suggestive of constipation.2. Left ovarian cyst, almost certainly benign, no imaging follow-up recommended. Signed: Nita Matta MDReport Verified Date/Time: 11/21/2020 20:33:54 Reading Location: [facility] C013W Consult Reading Room COMPREHENSIVE METABOLIC [id number] 18:33:00 Test Item Value Reference Range Interpretation [...] S NOT APPLICABLE FOR DIALYSIS PATIEN TS. Guest Service Host ID - JUSTINOperator ID - JUSTINOperator ID - JUSTINOperator ID - JUSTINOperator ID - JUSTINOperator ID - JUSTINOperator ID - JUSTINOperator ID - JUSTINOperator ID - JUSTINOperator ID - JUSTINOperator ID - JUSTINOperator ID - JUSTINOperator ID - JUSTINOperator ID - JUSTINOperator ID - JUSTINOperator ID - [id number] 18:33:00 Test Item Value Reference Range Interpretation Comments LIPASE (BEAKER) (test code = 749) 8 U/L 6-51 Guest Service Host ID - JUSTINOperator ID - JUSTINOperator ID - JUSTINOperator ID - KENDRICK CBC W/PLT COUNT & AUTO [id number] 18:16:00 Test Item Value Reference Range Interpretation [...] (BEAKER) (test code = 2801) URINALYSIS W/ [id number] 18:13:00 Test Item Value Reference Range Interpretation [...] = 2795) RAD, CHEST, 1 VIEW, NON [id number] 16:45:00Reason for exam:->fever and abdominal painShould this be performed at the bedside?->Yes [facility] RU[facility] CALL[facility] : 1995 Sex: FFINAL REPORT CHEST AP PORTABLE History provided: Fever, abdominal pain Radiographically normal-appearing heart and lungs. Signed: Polo Onofre MDRmil[facility] Verified Date/Time:11/21/2020 16:45:24 Reading Location: [facility] Radiology Reading Room TISSUE EXAM 2020-11-10 15:53:00Surgical Pathology Report Case: [id number] Authorizing Provider: Beatriz Martinez MD Collected: 11/08/2020 04:08 PM Ordering Location: [facility] Received: 11/09/2020 08:07 AM SERVICES Pathologist: Gwen Velez MD Specimen: Uterus w/Cervix & Bilateral Fallopian Tubes, UTERUS, CERVIX AND BILATERAL FALLOPIAN TUBES. UTERUS WITH CERVIX AND BILATERAL FALLOPIAN TUBES, HYSTERECTOMY AND BILATERAL SALPINGECTOMY:ENDOMETRIUM: - PROLIFERATIVE ENDOMETRIUMMYOMETRIUM: - NO SIGNIFICANTPATHOLOGIC ALTERATIONRIGHT FALLOPIAN TUBE: - PARATUBAL CYSTLEFT FALLOPIAN TUBE: - NO SIGNIFICANT PATHOLOGIC ALTERATIONMG/pl Signing Pathologist Direct Phone Line: [phone] signed by Gwen Velez MD on 11/10/2020 at 3:53 [id number] or frequent menstruationUterus, cervix, and bilateral fallopian tubeThe specimen is received in fixative and labeled with the patient's name, medical record number and designated as "uterus with cervix and bilateral fallopian tubes" and consists of a hysterectomy specimen (70 gm, 7.5 cm superior to inferior, 5.5 cm cornu to cornu and 2.5cm anterior to posterior) with attached right fallopian tube with fimbriated end measuring 5.0 cm inlength and 0.7 cm in diameter and attached left fallopian tube with fimbriated end measuring 4.5 cm in length with 0.5 cm in diameter. The right fallopian tube has a paratubal cyst (0.5 x 0.3 x 0.3 cm). The cervix is pink-han and smooth with no discrete lesions identified. The endometrium is red-brownand is 0.3 cm in greatest thickness. The myometrium is pink-han and trabeculated and is up to 1.5 cmin greatest thickness. No intramural nodules are identified. Section code: A1, anterior cervix; A2, p osterior cervix; A3, anterior endomyometrium; A4, posterior endomyometrium; A5, right fimbriated endentirely submitted along with right paratubal cyst; A6, medical device sales representative cross sections of right fallopian tube; A7, left fimbriated, entirely submitted; A8, medical device sales representative cross sections of left fallopian tube. MG/pl Performed [facility], Department of Pathology, [address] [place] [address], Zbzfej [facility], Department of Pathology, [address] [place] [address], [facility], [facility], [address] [place], [place] [address], RWPF- COV2/INFLUENZA/RSV [id number] 20:30:00 Test Item Value Reference Range Interpretation Comments SARS-COV2/RT-PCR Positive Negative AA (test code = 2478830) INFLUENZA A RT-PCR Negative Negative (test code = 1242574) INFLUENZA B RT-PCR Negative Negative (test code = 5966010) RSV RT-PCR (test Negative Negative Performance of the Xpert code = 2305915) Xpress SARS- CoV-2/Flu/RSV test has only b een established in nasopharyngeal swab specimens. Use of the Xpert Xpress SARS-CoV-2/Flu/ RSV test with other spec imen types has not been as sessed and performance characteristics are unknown. As wit h any molecular test, mutations within the targ [...] to e clinician evalu ating the patient. Invali d test results may occ ur from improper specim en collection; josh lure to follow the lavon mmended sample collecti on, handling, and s torage procedures; kristie hnical error. False ne gative results may occ ur if virus is presen t at levels below e analytical limi t of detection (LOD: 131 copies/mL). Vir al nucleic acid may persis t in vivo, independent of virus viability. Dete ction of analyte target( s) does not imply that the corresponding v irus(es) are infectious or are the causative agent s for clinical sympto ms. Recent patient exposur e to FluMist or othe r live attenuated infl uenza vaccines may ca use inaccurate posi tive results.This te st has been authorized by FDA under an EUA fo r use by authorized labo ratschuylre. This test is on ly authorized for the duration of the declaration raffi t circumstances e xist justifying the authorization o f emergency use o f in vitro diagnostic test s for detection and/o r diagnosis of CO VID-19 under Section 5 64(b)(1) of the Federal Food, Drug and Cosmetic Ac t, 21 U.S.C. 360bbb-3 (b)(1), unless the auth orization is terminated o r revoked sooner.Fact She et for Healthcare Prov iders: https://[email or web address]/D ocuments/Xpert% 20Xpress%2 2IGRX-TbD-7-Flu -RSV/302-4 508%20Rev.%20B% 20HCP%20Fa ct%20Sheet.pdfF act Sheet for Healthcare Patients: [email or web address]://[email or web address] Outlook/D ocuments/Xpert% 20Xpress%2 3RMSF-IrG-0-Flu -RSV/302-4 507%20Rev.%20B% 20Patient% 20Fact%20Sheet. pdf SCREEN, [id number] 13:18:00 Test Item Value Reference Range Interpretation Comments TEST URINE (BEAKER) (test Negative code = 583) BASIC METABOLIC [id number] 15:01:00 Test Item Value Reference Range Interpretation [...] S NOT APPLICABLE FOR DIALYSIS PATIEN TS. Guest Service Host ID - [id number] ID - [id number] ID - [id number] ID - [id number] ID - [id number] ID - [id number] ID - [id number] ID - cktw60Ifmmkjcf ID - [id number] ID - [id number] ID - [id number] ID - [id number] ID - [id number] W/PLT COUNT & AUTO [id number] 14:33:00 Test Item Value Reference Range Interpretation [...] PERCENT (BEAKER) (test code = 2801) TISSUE [id number] 09:31:00Surgical Pathology Report Case: [id number] Authorizing Provider: Beatriz Martinez MD Collected: 08/23/2020 08:08 AM Ordering Location: [facility] Received: 08/23/2020 11:27 AM SERVICES Pathologist: Gwen eVlez MD Specimens: A) - Curettings, Endocervical B) - Curettings, Endometrial A. ENDOCERVIX, CURETTINGS: - BENIGN ENDOCERVICAL MUCOSAB. ENDOMETRIUM, CURETTINGS: - ENDOMETRIAL POLYP - BACKGROUND PROLIFERATIVE ENDOMETRIUM Signing Pathologist Direct Phone Line: [phone] lectronically signed by Gwen Velez MD on 08/24/2020 at 9:31 [id number] abdominal pain A. Curettings endocervical; B. Currettings, endometrial Specimen A is received in fixative and labeled with the patient's name, medical record number and designated as "curettings endocervical" and consists of red clear mucoid material measuring 2.5 x 1.5 x 0.3 cm in aggregate. The specimen is entirely submitted into A1. Specimen B is received in fixative and labeled with the patient's name, medical record number and designated as "curettings, endometrial" and consists of white-han tissue received within a mesh bag measuring 3.0 x 2.5 x 0.5 cm in aggregate. The specimen is entirely submitted into B1. Additionally within the specimen container are red-brown tissue fragments received on a Telfa pad. The tissue fragments are also submitted into B1. MG/pl A-B: Performed [facility], Department of Pathology, [address] [place] [address], HzwlazLy. [facility], Department of Pathology, [address] [place] [address], Kv. [facility], Department of Pathology, [address] [place] [address], GSPAHZDII SCREEN, [id number] 06:27:00 Test Item Value Reference Range Interpretation Comments TEST URINE (BEAKER) (test Negative code = 583) SARS-COV2/RT-PCR ([facility])2020-08-20 07:08:00 Test Item Value Reference Range Interpretation Comments SARS-COV2/RT-PCR (test Negative Not Detected, Negative, code = 0944601) See external report for linked test SARS-COV-2 PERFORMING LAB [facility] (test code = 7926845) Negative result for this test determines that [...] individuals suspected of COVID-19 by their healthcare provider.This test [...] justifying the authorization of the emergency use ofin vitro diagnostic tests for detection and/or diagnosis of COVID-19 is terminated under Section 564(b)(2) of the Act or the EUA is revoked under Section 564(g) of the Act.Testing was performed using the Moximed SARS-CoV-2 assay.Fact Sheet for Healthcare Providers:https://www.6APT.Kidamom/lucía/RT_SAR S-FgT-7_ZQO_Rlre_Jmtvi_98-320245.pdfFact Sheet for Healthcare Patients:https://www.molecular.connell/s al/AJ_YSUS-HtB-4_Tbrjdqa_Givy_Vzdge_JG_44-501979O5.pdfPerforming Laboratory:[facility] [place] [address] BASIC METABOLIC [id number] 11:08:00 Test Item Value Reference Range Interpretation [...] 1092) DATA TO CALCULA TE ESTIMATED GFR. Guest Service Host ID - LITOOperator ID - LITOOperator ID - LITOOperator ID - LITOOperator ID - LITOOperator ID - LITOOperator ID - LITOOperator ID - LITOOperator ID - LITOOperator ID - LITOOperator ID - LITOOperator ID - LITOOperator ID - LITOCBC W/PLT COUNT & AUTO [id number] 10:57:00 Test Item Value Reference Range Interpretation [...] in Respiratory specimen by KATIE with probe [id number] 03:49:53 Test Item Value Reference Range Interpretation Comments SARS-CoV-2 (COVID-19) RNA Not detected Not-Detected [Presence] in Respiratory specimen by KATIE with probe detection (test code = 19137-2) XR CHEST 1 [id number] 16:18:43 No acute cardiopulmonary abnormality. Preliminary Report [...] reviewed this study and agree with the abovereport.[facility] TROPONIN [id number] 16:03:00 Test Item Value Reference Range Interpretation Comments TROPONIN I (test <0.012 See_Comment [Automated code = 8255631906) message] The system which generated this result [...] ? Lab Interpretation Normal (test code = 43850-7) [facility]-[id number] 16:00:00 Test Item Value Reference Interpretation Comments Range D-DIMER (test code = See_Comment H [Autom ated 7614060144) message] The system which generated this result [...] diagnosis. Lab Interpretation Abnormal (test code = 78082-5) [facility] (ID NOW RAPID TESTING)2020-05-22 16:00:00 Test Item Value Reference Range Interpretation Comments SARS-CoV-2 Rapid ID NOW Not Detected Not Detected (test code = 19247-4) VERITO (test code = VERITO) ID NOW COVID-19 Assay is an isothermal nucleic acid amplification test intended for the qualitative detection of nucleic acid from SARS-CoV-2 viral RNA in nasopharyngeal (EXECUTIVE PRODUCER) specimens. It is used under Emergency Use [...] indicated. Lab Interpretation Normal (test code = 91592-7) [facility]2020-10-11 15:53:00 Test Item Value Reference Range Interpretation Comments APTT Patient (test See_Comment [Automat ed code = 3173-2) message] The system which generated this result transmitted reference range : 23 - 38 Seconds . The reference range was not used to interpr et this result as normal/abnormal . VERITO (test code = VERITO) The [facility] patient population mean normal value for aPTT is 30 seconds. Lab Interpretation Normal (test code = 30876-3) [facility] Paso[facility]. METABOLIC PANEL (16426)2020-05-22 15:52:00 Test Item Value Reference Range Interpretation Comments NA (test code = 138 mmol/L 135-145 9039622168) K (test code = 3.7 mmol/L 3.5-5 2774299400) CL (test code = 102 mmol/L 98-108 5964891896) CO2 TOTAL (test code = 29 mmol/L 23-31 1357069731) AGAP (test code = 2-16 7367491000) BUN (test code = 7 mg/dL 7-23 2169539105) GLUCOSE (test code = 65 mg/dL 70-110 L 8821281378) CREATININE (test code = 0.70 mg/dL 0.5-1.04 0729880247) TOTAL BILI (test code = 0.4 mg/dL 0.1-1.9 7951956456) CALCIUM (test code = 9.3 mg/dL 8.6-10.6 8980163650) T PROTEIN (test code = 7.8 g/dL 6.3-8.2 4452169949) ALBUMIN (test code = 4.2 g/dL 3.5-5 1521895988) ALK PHOS (test code = 79 U/L 34-122 1075806400) ALTv (test code = 12 U/L 5-35 1742-6) AST(SGOT) (test code = 25 U/L 13-40 6868031366) eGFR Calculation mL/min/1.73m2 (Non-) (test code = 3685078571) eGFR Calculation mL/min/1.73m2 () (test code = 7063450024) VERITO (test code = VERITO) Association of [...] tests). Lab Interpretation Abnormal (test code = 56006-6) [facility] [id number] 15:51:00 Test Item Value Reference Range Interpretation Comments APPEARANCE (test code = Clear Clear 6454295374) COLOR (test code = Straw Yellow A 4427045036) PH (test code = 4.8-8.0 3443105085) SP GRAVITY (test code = 1.003-1.030 1490025168) GLU U QUAL (test code = Normal Normal 6919656319) BLOOD (test code = Negative Negative 4943199363) KETONES (test code = Negative Negative 3780208323) PROTEIN (test code = Negative Negative 2887-8) UROBILIN (test code = Normal Normal 7876704696) BILIRUBIN (test code = Negative Negative 6351567759) NITRITE (test code = Negative Negative 6396725346) LEUK MICHAEL (test code = Negative Negative 3712447240) RBC/HPF (test code = See_Comment [Autom ated message] 5543710157) The system [employer] generated this result transmitted ref erence range: 0 - 3 HP F. The reference range was not used to int erpret this result as normal/abnormal . WBC/HPF (test code = <1 See_Comment [Autom ated message] 5503875496) The system [employer] generated this result transmitted ref erence range: 0 - 5 HP F. The reference range was not used to int erpret this result as normal/abnormal . BACTERIA (test code = Negative Negative 0854919588) SQ EPITH (test code = HPF 4984775217) Lab Interpretation (test Abnormal code = 16777-9) [facility] PasoPROTHROMBIN TIME / [id number] 15:51:00 Test Item Value Reference Range Interpretation Comments PROTIME PATIENT (test See_Comment [Auto mated message] code = 5964-2) The system [employer] generated this result transmitted ref erence range: 12.0 - 1 4.7 Seconds. The re ference range was not u sed to interpret this result as normal/abnor mal. INR (test code = 6301-6) Nor mal INR <1.1; Warfarin Therap eutic range 2.0 to 3. 0 or 2.5 to 3.5, dep ending upon the indica tions. Lab Interpretation (test Normal code = 17638-6) [facility] PasoLIPASE, [id number] 15:51:00 Test Item Value Reference Range Interpretation Comments LIPASE (test code = 1208002278) 32 U/L 0-220 Lab Interpretation (test code = Normal 95657-8) [facility] PasoCB WITH [id number] 15:40:00 Test Item Value Reference Range Interpretation Comments WBC (test code = See_Comment [Automated 3690-2) message] The sy stem which generated this [...] RDW-SD (test code = 41.2 fL 39-49.9 76920-2) RDW-CV (test code = 17.3 % 12-15.5 H 788-0) PLT (test code = See_Comment [Automated 777-3) message] The sy stem which generated this result transmitted reference range : 166 - 358 10*3/ ?L. The reference r ryann was not used to interpret this result as normal/abnormal . MPV (test code = 9.8 fL 9.5-12.9 11180-9) NRBC/100 WBC (test See_Comment [Automat ed code = 3668495221) message] The system which generated this result transmitted reference range : 0.0 - 10.0 /100 WBCs. The refer ence range was not u sed to interpret th is result as normal/abnormal . NRBC x10^3 (test code <0.01 See_Comment [Auto mated = 0569520016) message] The s ystem which generated this result transmitted reference range : 10*3/?L. The reference range was not used to interpret this result as normal/abnormal . GRAN MAT (NEUT) % 50.9 % (test code = 770-8) IMM GRAN % (test code 0.20 % = 5318123072) LYMPH % (test code = 33.3 % 736-9) MONO % (test code = 8.4 % 5905-5) EOS % (test code = 5.4 % 713-8) BASO % (test code = 1.8 % 706-2) GRAN MAT x10^3(ANC) 2.55 10*3/uL 1.88-7.09 (test code = 4157338080) IMM GRAN x10^3 (test <0.03 0-0.06 code = 0605261053) LYMPH x10^3 (test code 1.67 10*3/uL 1.32-3.29 = 731-0) MONO x10^3 (test code 0.42 10*3/uL 0.33-0.92 = 742-7) EOS x10^3 (test code = 0.27 10*3/uL 0.03-0.39 711-2) BASO x10^3 (test code 0.09 10*3/uL 0.01-0.07 H = 704-7) Lab Interpretation Abnormal (test code = 27605-0) [facility] PasoPOCT [id number] 15:21:00 Test Item Value Reference Range Interpretation Comments POCT PREG (test code = 1605) negative On board controls acceptable with present C Line (test code = 3574) POCT PREG LOT # (test code = 3575) [id number] POCT PREG TEST DATE (test 2021-04-11 code = 3576) Lab Interpretation (test code = Normal 79075-0) [facility]
[2022-04-19 22:09] LABS: Absolute Lymphocytes (CBC) 1.2 K/uL (0.7-4.9); Lymphocytes % 17.3 % (15.3-44.8); MCV 75.4 fL (80-100)
[2022-04-19 22:17] LABS: SARS-CoV-2 Antigen Rapid Res Negative (Negative)
[2022-04-19 22:22] LABS: ALT/SGPT 29 U/L (12-78); AST/SGOT 15 U/L (15-37); Albumin 3.5 g/dL (3.4-5.0); Alkaline Phosphatase 82 U/L (45-117); BUN Blood Urea Nitrogen 8 mg/dL (7-18); Bicarbonate 31 mmol/L (21-32); Bilirubin Total 0.2 mg/dL (0.2-1.0); Glomerular Filtration Rate 86 ml/min (=/>90); Glucose Level 116 mg/dL (74-106); Lipase 34 U/L (73-393); Potassium 3.3 mmol/L (3.5-5.1); Sodium Level 145 mmol/L (136-145)
[2022-04-19 22:24] LABS: Bilirubin Direct < 0.1 mg/dL (0-0.2)
[2022-04-19] MEDS ORDERED: NA CHLORIDE 0.9% 1,000 ML ONE (23:54)
--- NOTE | 2022-04-20 01:41 | ER ---
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 Initial Sepsis Screen: Does the patient meet any 2 criteria? No. Patient's initial sepsis screen is negative. Does the patient have a suspected source of infection? No. Patient's initial sepsis screen is negative. Risk Assessment: Do you want to hurt yourself or someone else? Unable to obtain. Onset of symptoms was April 19, 2022. 21:14 Method Of Arrival: EMS: [facility] 21:14 Acuity: GERI 3 kl Triage Assessment: 21:17 General: Appears in no apparent distress. well groomed, well developed, Behavior is kl flat. Neuro: Level of Consciousness is awake, pt appears to be post tictil. Seizure activity reported prior to arrival. Seizure lasted approximately 4 minutes. Patient is post-ictal at this time. Historical: - Home Meds: 21:51 oxcarbazepine 150 mg oral tab 2 times per day [Active]; carvedilol 6.25 mg oral tab 1 kl tab 2 times per day [Active]; hydroxyzine HCl 50 mg Oral tab 1 tab [Active]; diclofenac sodium 75 mg oral TbEC 1 tab 2 times per day [Active]; Risperdal 2 mg Oral tab 1 tab once daily [Active]; Valtrex 500 mg Oral tab 1 tab 2 times per day [Active]; - PMHx: 21:16 Anemia; Depression; High Blood Pressure; Seizure; kl - PSHx: 21:16 Cholecystectomy; hysterectomy; kl - Family history:: not pertinent. - Hospitalizations: : No recent hospitalization is reported. Screenin:58 Abuse screen: Denies threats or abuse. Nutritional screening: No deficits noted. kl Tuberculosis screening: No symptoms or risk factors identified. Fall Risk None identified. Assessment: 21:56 General: Appears in no apparent distress. well groomed, well developed, Behavior is kl calm, cooperative. Pain: Unable to use pain scale. pt pineda not respond to questions. Neuro: Facial symmetry appears normal. Cardiovascular: No deficits noted. Respiratory: No deficits noted. GI: No deficits noted. : No deficits noted. 23:22 Reassessment: No changes from previously documented assessment. Patient and/or family ll3 updated on plan of care and expected duration. Pain level reassessed. Patient is alert, oriented x 3, equal unlabored respirations, skin warm/dry/pink. Vital Signs: 21:14 BP 122 / 78; Pulse 82; Temp 97.8; Pulse Ox 99% on R/A; kl 21:59 BP 126 / 83; Pulse 82; Resp 18; Pulse Ox 99% ; kl 23:22 BP 114 / 74; Pulse 86; Resp 15; Pulse Ox 100% on R/A; ll3 09 01:15 BP 113 / 70; Pulse 75; Resp 15; Pulse Ox 100% on R/A; ll3 02:00 BP 113 / 68; Pulse 77; Resp 14; Pulse Ox 100% on R/A; ll3 ED Course: 04/19 21:14 Patient arrived in ED. rn 21:14 Jonny Howell MD is Attending Physician. rn 21:16 Triage completed. kl 21:59 Maintain EMS IV. Dressing intact. Good blood return noted. Site clean \T\ dry. Gauge \T\ kl site: 18 left A/C. 21:59 Patient has correct armband on for positive identification. Seizure precautions kl initiated. 22:00 Arm band placed on Patient placed in an exam room, on a stretcher, on pulse oximetry. ll3 22:15 Flu Sent. ll3 22:15 SARS RAPID Sent. ll3 04/20 02:28 No provider procedures requiring assistance completed. IV discontinued, intact, ll3 bleeding controlled, No redness/swelling at site. Pressure dressing applied. Administered Medications: 04/19 23:51 Drug: NS 0.9% 1000 ml Route: IV; Rate: 1000 ml; Site: left antecubital; ll3 04/20 02:27 Follow up: Response: No adverse reaction; IV Status: Completed infusion; IV Intake: ll3 1000ml Medication: 02:28 VIS not applicable for this client. ll3 Point of Care Testing: Blood Glucose: 04/19 22:22 Blood Glucose: 107 mg/dL; ll3 Ranges: Intake: 04/20 02:27 IV: 1000ml; Total: 1000ml. ll3 Outcome: 01:40 Discharge ordered by . rn 02:28 Discharged to home ambulatory, with family. ll3 02:28 Condition: stable 02:28 Discharge instructions given to patient, family, Instructed on discharge instructions, follow up and referral plans. medication usage, Demonstrated understanding of instructions, follow-up care, medications, Prescriptions given X 2. 02:29 Patient left the ED. ll3 Signatures: Beatriz Parish RN RN kl Nieto, Roman, MD MD rn Loubet, Lynsea, RN RN 3 Corrections: (The following items were deleted from the chart) 04/19 21:56 21:16 Home Meds: Bentyl 10 mg Oral cap; sae quevedo 21:56 21:16 Home Meds: Cyclobenzaprine Oral; sae quevedo
--- NOTE | 2022-04-20 01:41 | EDPHYS ---
Physician Documentation [facility] Name: Cheyanne Lopes Age: 26 yrs Sex: Female : 1995 Arrival Date: 04/19/2022 Time: 21:14 Bed 6 Private MD: ED Physician Jonny Howell HPI: 04/19 21:27 This 26 yrs old Black Female presents to ER via EMS with complaints of seizure x 2. rn 21:27 The patient presents with a history of multiple seizures, a total of 2. Character of rn seizure(s): Motor activity: generalized, Incontinence: none, Circulation: the patient did not experience evidence of pulse disturbance, Eye movements: are unknown. Seizure onset: just prior to arrival. Associated injury: The patient did not suffer any apparent associated injury. Current symptoms: confusion. The patient has experienced similar episodes in the past. The patient has not recently seen a physician. Mother reports 2 seizures at home, called 911 after first one, then had another one when police arrived. No meds given by EMS. Currently awake and denies pain or injury. Takes carbamazepine and mother states compliant with meds. Mother laid her down when she began to act like was going to seize. . Historical: - Home Meds: 21:51 oxcarbazepine 150 mg oral tab 2 times per day [Active]; carvedilol 6.25 mg oral tab 1 kl tab 2 times per day [Active]; hydroxyzine HCl 50 mg Oral tab 1 tab [Active]; diclofenac sodium 75 mg oral TbEC 1 tab 2 times per day [Active]; Risperdal 2 mg Oral tab 1 tab once daily [Active]; Valtrex 500 mg Oral tab 1 tab 2 times per day [Active]; - PMHx: 21:16 Anemia; Depression; High Blood Pressure; Seizure; kl - PSHx: 21:16 Cholecystectomy; hysterectomy; kl - Family history:: not pertinent. - Hospitalizations: : No recent hospitalization is reported. ROS: 21:27 Constitutional: Negative for fever, chills, and weight loss, Eyes: Negative for injury, rn pain, redness, and discharge, Neck: Negative for injury, pain, and swelling, Cardiovascular: Negative for chest pain, palpitations, and edema, Respiratory: Negative for shortness of breath, cough, wheezing, and pleuritic chest pain, Abdomen/GI: Negative for abdominal pain, nausea, vomiting, diarrhea, and constipation, Back: Negative for injury and pain, MS/Extremity: Negative for injury and deformity, Skin: Negative for injury, rash, and discoloration, Neuro: Negative for weakness, numbness, tingling Exam: 21:27 Constitutional: This is a well developed, well nourished patient who is awake, alert, rn and in no acute distress. Head/Face: Normocephalic, atraumatic. Eyes: Pupils equal round and reactive to light, extra-ocular motions intact. Lids and lashes normal. Conjunctiva and sclera are non-icteric and not injected. Cornea within normal limits. Periorbital areas with no swelling, redness, or edema. Cardiovascular: Regular rate and rhythm. No pulse deficits. Respiratory: No increased work of breathing, no retractions or nasal flaring. Abdomen/GI: Soft, non-tender Skin: Warm, dry with normal turgor. Normal color with no rashes, no lesions, and no evidence of cellulitis. MS/ Extremity: Pulses equal, no cyanosis. Neurovascular intact. Full, normal range of motion. Equal circumference. Neuro: Awake, post-ictal, answers yes and no questions, slow to respond, moves all 4 extremities to command. 04/20 00:50 ECG was reviewed by the Attending Physician. rn Vital Signs: 04/19 21:14 BP 122 / 78; Pulse 82; Temp 97.8; Pulse Ox 99% on R/A; kl 21:59 BP 126 / 83; Pulse 82; Resp 18; Pulse Ox 99% ; kl 23:22 BP 114 / 74; Pulse 86; Resp 15; Pulse Ox 100% on R/A; ll3 04/20 01:15 BP 113 / 70; Pulse 75; Resp 15; Pulse Ox 100% on R/A; ll3 02:00 BP 113 / 68; Pulse 77; Resp 14; Pulse Ox 100% on R/A; ll3 MDM: 04/19 21:14 Patient medically screened. rn 04/20 01:39 Differential diagnosis: seizure, viral syndrome, influenza, COVID. Data reviewed: vital rn signs, nurses notes, lab test result(s), and as a result, I will discharge patient. Counseling: I had a detailed discussion with the patient and/or guardian regarding: the historical points, exam findings, and any diagnostic results supporting the discharge/admit diagnosis, lab results, the need for outpatient follow up, to return to the emergency department if symptoms worsen or persist or if there are any questions or concerns that arise at home. Response to treatment: the patient's symptoms have markedly improved after treatment, the patient's condition has returned to base line, and as a result, I will discharge patient. Special discussion: I discussed with the patient/guardian in detail that at this point there is no indication for admission to the hospital. It is understood, however, that if the symptoms persist or worsen the patient needs to return immediately for re-evaluation. ED course: Pt much more alert, no meds required here, Flu+, will dc home with symptomatic treatment and return precautions. . 04/19 21:21 Order name: CBC with Diff; Complete Time: 23:34 rn 04/19 21:21 Order name: Basic Metabolic Panel; Complete Time: 23:34 rn 04/19 21:21 Order name: Flu; Complete Time: 23:34 rn 04/19 21:21 Order name: SARS RAPID; Complete Time: 23:34 rn 04/19 21:21 Order name: IV Start; Complete Time: 22:13 rn 04/19 21:21 Order name: EKG; Complete Time: 21: rn 04/19 21:21 Order name: LFT's; Complete Time: 23:34 rn 04/19 21:21 Order name: Lipase; Complete Time: 23:34 rn 04/19 22:33 Order name: Glucose, Ancillary Testing; Complete Time: 23:34 EDMS 04/19 21:21 Order name: EKG - Nurse/Tech; Complete Time: 22:22 rn 04/19 21:21 Order name: Cardiac monitoring; Complete Time: 22:22 rn 04/19 21:21 Order name: O2 Sat Monitoring; Complete Time: 22:13 rn 04/19 21:21 Order name: Glucose Level; Complete Time: : rn EC:50 Rate is 88 beats/min. Rhythm is regular. QRS [place] is Normal. RI interval is normal. QRS rn interval is normal. QT interval is normal. No Q waves. T waves are Normal. No ST changes noted. Clinical impression: Normal ECG. Interpreted by me. Reviewed by me. Administered Medications: 04/19 23:51 Drug: NS 0.9% 1000 ml Route: IV; Rate: 1000 ml; Site: left antecubital; ll3 04/20 02:27 Follow up: Response: No adverse reaction; IV Status: Completed infusion; IV Intake: ll3 1000ml Point of Care Testing: Blood Glucose: 04/19 22:22 Blood Glucose: 107 mg/dL; ll3 Ranges: Critical Glucose Levels:Adult <50 mg/dl or >400 mg/dl <40 mg/dl or >180 mg/dl Disposition Summary: 04/20/22 01:40 Discharge Ordered Location: Home rn Problem: new rn Symptoms: have improved rn Condition: Stable rn Diagnosis - Epileptic seizures related to external causes, not intractable, without status rn epilepticus - Influenza due to other identified influenza virus with gastrointestinal rn manifestations Followup: rn - With: Private Physician - When: As needed - Reason: Recheck today's complaints, Re-evaluation by your physician Discharge Instructions: - Discharge Summary Sheet rn - Epilepsy rn - Influenza, Adult rn - Seizure, Adult rn Forms: - Medication Reconciliation Form rn - Thank You Letter rn - Antibiotic electrical intern - Prescription Opioid Use rn Prescriptions: - Zofran 4 mg Oral Tablet - take 1 tablet by ORAL route every 12 hours As needed; 15 tablet; Refills: 0, rn Product Selection Permitted - Tamiflu 75 mg Oral Capsule - take 1 tablet by ORAL route every 12 hours for 5 days; 10 tablet; Refills: 0, rn Product Selection Permitted Signatures: Dispatcher [employer] Beatriz Muniz RN Jonny Rodriguez MD MD rn Loubet, Lynsea RN RN ll3 Corrections: (The following items were deleted from the chart) 21:56 21:16 Home Meds: Bentyl 10 mg Oral cap; kl kl 21:56 21:16 Home Meds: Cyclobenzaprine Oral; kl kl
--- NOTE | 2022-04-23 05:43 | EKG ---
Test Date: 2022-04-19 Test Time: 22:22:10 Senior Sales Operations Analyst: MARIBETH MEASUREMENT RESULTS: Intervals: Rate: 88 AR: 146 QRSD: 80 QT: 374 QTc: 452 [place]: P: 77 AR: 146 QRS: 73 T: 44 INTERPRETIVE STATEMENTS: Normal sinus rhythm Normal ECG Compared to ECG 01/30/2021 16:16:04 Sinus arrhythmia no longer present Electronically Signed On 04-23-22 05:39:55 CDT by Mirza Aguirre
== END 2022-04-20 02:29 | disposition home or self-care (01) ==
LOC: ER 21:11
DX: G40.509 Epileptic seizures related to external causes, not intractable, without status epilepticus (principal); J10.2 Influenza due to other identified influenza virus with gastrointestinal manifestations; Z20.822 Contact with and (suspected) exposure to COVID-19
CPT/HCPCS: 96361; 93005; 85025; 80048; 36415; 82947; 80076; 83690; 87804 ×2; 96360; 99284; 87811; J7030

== ENCOUNTER 2022-04-24 21:30 | Emergency (ER) | payer OTHER ==
--- OUTSIDE RECORDS SUMMARY | 2022-04-24 21:39 | XMS REPORT | Continuity of Care Document ---
:1995 Author Organization [facility] t Address [address] [place] [place] [id number] Care Team Providers Name Role Phone SYSTEM, PROVIDER NOT IN Primary Care Physician Unavailable BEATRIZ MARTINEZ Attending Clinician Unavailable CAPO LOBO Attending Clinician Unavailable Capo Lobo DO Attending Clinician PETRONA PAN Attending Clinician Unavailable Petrona Pan DO Attending Clinician BETARIZ MARTINEZ Attending Clinician Unavailable Beatriz Martinez Attending Clinician MAY MULLINS Attending Clinician Unavailable May Mullins MD Attending Clinician SINDHU MEDEIROS Attending Clinician Unavailable Katerina RAVI, Cwquintin Ungera Attending Clinician [phone] Deep RAVI, Tiffanie Nkiru Attending Clinician Sindhu Medeiros MD Attending Clinician Hussain SCOTT Marli Attending Clinician Doctor Unassigned, Kotlik Attending Clinician Unavailable KIMBERLY MI Attending Clinician Unavailable RADHA RUFFIN Attending Clinician Unavailable SYEDA HIDALGO Attending Clinician Unavailable ERLINDA PEREZ Attending Clinician Unavailable NOLA BUNCH Attending Clinician Unavailable MD YONATAN BARKER Attending Clinician Unavailable TANYA BARTON Attending Clinician Unavailable ANA BOO Attending Clinician Unavailable Ana Boo NP Attending Clinician Akinsipe WHCNP, Lauren C Attending Clinician [phone] BEATRIZ MARTINEZ Admitting Clinician Unavailable CAPO LOBO Admitting Clinician Unavailable BEATRIZ MARTINEZ Admitting Clinician Unavailable Beatriz Martinez Admitting Clinician SINDHU MEDEIROS Admitting Clinician Unavailable TIFFANIE MORGAN Admitting Clinician Unavailable NOLA BUNCH Admitting Clinician Unavailable MD YONATAN BARKER Admitting Clinician Unavailable Payers Payer Name Policy Type Policy Number Effective Date Expiration Date [facility] [id number] 2020 00:00:00 [facility] [id number] [address] [facility] 00:00:00 Problems Condition Condition Condition Status Onset Resolution Last Treating Co mments Source Name Details Category Date Date Treatment Clinician Date PELVIC AND PELVIC Diagnosis Active 2021-12-31 Memoria PERINEAL AND 12-04 15:31:00 l PAIN-R10.2 PERINEAL 00:00: Herm roni / OVARIAN PAIN-R10.2 00 / OVARIAN Active 12/04/2021 [place] Anemia An[facility] Constipati Constipati Disease Active [facility] Vaginal Vaginal Disease Active [facility] cellulitis cellulitis 00:00: Me dical 00 Center Syncope Syncope Disease [facility] Excessive Excessive [...] of breast breast 00:00: g of this [place] cancer cancer 00 note Medical might be Branch different from the original. Reports grandmoth er dx at age 44 Well woman Well woman Disease Active U nivers exam exam 6-05 ity of 00:00: [place] [address] Medical Branch Breast Breast Disease Active Univers pain pain 6-05 ity of 00:00: [place] [address] Medical Branch Corpus Corpus Disease Active Univers luteum luteum 6-05 ity of cyst or cyst or 00:00: [place] hematoma hematoma 00 Medica l Branch Need for Need for Disease Active Unive rs HPV HPV 6-05 ity of vacc[place] BMI BMI Disease Active Univers 26.0-26.9, 26.0-26.9, 6-05 it y of adult adult 00:00: [place] [address] Medical Branch Well woman Well woman Disease Active U nivers exam exam 6-05 ity of 00:00: [place] 00 Medical Branch Pelvic and Pelvic Problem 2021-12-08 Memoria perineal and 22:13:17 l pain perineal [place] pain 12/08/2021 [place] Mixed Mixed Problem Resolve 2021-12-08 Devin latrice anxiety anxiety d 22:13:17 l and and [place] depressive depressive disorder disorder (disorder) (disorder) Resolved Problem 12/08/2021 [place] Seizure Seizure Problem Resolve 2021-12-08 M emoria (finding) (finding) d 22:13:17 l Resolved [place] Problem 12/08/2021 [place] PELVIC AND PELVIC Diagnosis Active 2021-12-31 Memoria PERINEAL AND 15:31:00 l PAIN PERINEAL [place] PAIN Active [place] Allergies, Adverse Reactions, Alerts Allergy Allergy Status Severity Reaction(s) Onset Inactive Treating Comm ents Source Name Type Date Date Clinician NO KNOWN Allergy Active [facility] ALLERGIE S NO KNOWN Drug Active Univers ALLERGIE Class ity of S [facility] Social History Social Habit Start Date Stop Date Quantity Comments Source History SDOH [facility] Drinks History SDOH [facility] Alcohol Binge Medical [address] [facility] History SDOH [facility] Alcohol Comment Medical C enter Exposure to 2022-02-17 2022-02-27 Not sure [facility] SARS-CoV-2 00:00:00 13:24:00 [place] [facility] (event) [place] Social History 2021-12-04 2021-12-04 [facility] adams 20:06:54 20:06:54 Alcohol intake 2021-11-05 2021-11-05 [facility]00 [facility] alcohol [facility] Center (finding) History SDOH 2020-08-22 2020-08-[address] [facility] Alcohol Frequency 00:00:00 00:00:00 [facility] Center Tobacco use and 2020-08-22 2020-08-[address] [facility] [facility] exposure 00:00:00 00:00:00 [facility] Center Sex Assigned At [address] [facility] 00:00:00 00:00:00 [facility] Smoking Status Start Date Stop Date Source Never smoker [facility] Medications Ordered Filled Start Stop [...] dose, On Sat02/27/22 at 1330, STAT ketorolac 2021- No 30mg 30 mg, Unive rs (TORADOL) -16 06-16 Slow IV ity of injection 16:00: 15:19 Push, [place] 30 mg 00 :00 ONCE, 1 Medical dose, On Branch Yue 01/25/22 at 1100, LINDA NaCl 0.9% 2021- No 1000mL at 999 Uni vers (NS) bolus 16 06-16 mL/hr, ity of infusion 15:30: 15:45 1,000 mL, Biju as 1,000 mL 00 :00 IV Medical Infusion, Branch ONCE, 1 dose, On Yue 01/25/22 at 1030, LINDA oxcarbazepi 0 Yes Take by Uni vers ne 6-16 mouth. ity of (TRILEPTAL 12:01: [place] ORAL) [address] [place] [address] Branch risperidone 0 Yes Take by Uni vers (RISPERDAL 6-16 mouth. ity of ORAL) 12:01: [address] oxcarbazepi Yes Take by Uni vers ne 6-16 mouth. ity of (TRILEPTAL 12:01: [place] ORAL) [address] [place] [address] risperidone 0 Yes Take by Uni vers (RISPERDAL 6-16 mouth. ity of ORAL) 12:01: [address] ibuprofen 0 Yes 600 mg = 1 Me moria 600 mg oral 4-27 tab, PO, l tablet 11:28: Q6H, PRN [place] 00 Pain or Fever, Take with food, X 10 day, # 40 tab, 1 Refill(s), Pharmacy: [facility], 165.1, cm, 12/05/21 21:26:00 CDT, Height, 81.3, kg, 12/05/21 21:26:00 CDT, Weight ibuprofen 0 Yes 600 mg = 1 Me moria 600 mg oral 4-27 tab, PO, l tablet 11:28: Q6H, PRN [place] 00 Pain or Fever, Take with food, X 10 day, # 40 tab, 1 Refill(s), Pharmacy: [facility], 165.1, cm, 12/05/21 21:26:00 CDT, Height, 81.3, kg, 12/05/21 21:26:00 CDT, Weight [place] 5/325 2021-0 Yes 1 tab, PO, Memoria oral tablet 4-27 Q4H, PRN l 11:27: Pain Score [place] 00 1-3, X 7 day, # 30 tab, 0 Refill(s), Pharmacy: [facility], 165.1, cm, 12/05/21 21:26:00 CDT, Height, 81.3, kg, 12/05/21 21:26:00 CDT, Weight [place] 5/325 Yes 1 tab, PO, Memoria oral tablet 12-06 Q4H, PRN l 11:27: Pain Score [place] 00 1-3, X 7 day, # 30 tab, 0 Refill(s), Pharmacy: [facility], 165.1, cm, 12/05/21 21:26:00 CDT, Height, 81.3, kg, 12/05/21 21:26:00 CDT, Weight Zofran No Notes: Memoria 12-05 (Same as: l 22:53: Zofran) Toño MEDICATION WASTE Product Size: 4 mg Product Wasted: ___ mg Zofran No Notes: Memoria 12-05 (Same as: l 22:53: Zofran) [place] MEDICATION WASTE Product Size: 4 mg Product Wasted: ___ mg estradiol No 0.1 mg, Memor ia 0.1 mg/12-05 Route: l hours 20:00: TOP, Drug Form: transdermal ERFILM, film, Dosing extended Weight release 81.364, kg, Q7D, Start date: 12/05/21 15:00:00 CDT, Duration: 30 day, Stop date: 01/02/22 9:00:00 CDT estradiol No 0.1 mg, Memor ia 0.1 mg/24 12-05 Route: l hours 20:00: TOP, Drug Form: transdermal ERFILM, film, Dosing extended Weight release 81.364, kg, Q7D, Start date: 12/05/21 15:00:00 CDT, Duration: 30 day, Stop date: 01/02/22 9:00:00 CDT ondansetron No Route: IV, Memoria (ANES) 4-26 Drug form: l 19:56: INJ, ONCE, Stop date: 12/05/21 14:56:00 CDT glycopyrrol No Route: IV, Memoria ate (ANES) 4-26 Drug form: l 19:56: INJ, ONCE, Stop date: 12/05/21 14:56:00 CDT neostigmine No Route: IV, Memoria (ANES) 4- Drug form: l 19:56: INJ, ONCE, Stop date: 12/05/21 14:56:00 CDT ondansetron No Route: IV, Memoria (ANES) 4- Drug form: l 19:56: INJ, ONCE, Stop date: 12/05/21 14:56:00 CDT glycopyrrol No Route: IV, Memoria ate (ANES) 4- Drug form: l 19:56: INJ, ONCE, Stop date: 12/05/21 14:56:00 CDT neostigmine No Route: IV, Memoria (ANES) 4- Drug form: l 19:56: INJ, ONCE, Stop date: 12/05/21 14:56:00 CDT ANES No Notes: Memoria fentaNYL 4- (Same as: l 19:38: Sublimaze) Preservati ve free. No Notes: Memoria HYDROmorpho 4- Same as: l ne 19:38: Dilaudid No Notes: Memoria flumazenil 4-26 (Same as: l 19:38: Romazicon) No Notes: Memoria naloxone 4-26 Same as l 19:38: Narcan No Notes: Memoria ondansetron 4-26 (Same as: l 19:38: Zofran) MEDICATION WASTE Product Size: 4 mg Product Wasted: ___ mg No Notes: Memoria fentaNYL 4-26 (Same as: l 19:38: Sublimaze) Preservati ve free. S No Notes: Memoria HYDROmorpho 12-05 Same as: l ne 19:38: Dilaudid S No Notes: Memoria flumazenil 12-05 (Same as: l 19:38: Romazicon) S No Notes: Memoria naloxone 12-05 Same as l 19:38: Narcan No Notes: Memoria ondansetron 12-05 (Same as: l 19:38: Zofran) MEDICATION WASTE Product Size: 4 mg Product Wasted: ___ mg hydromorpho No Route: IV, Memoria ne (ANES) 4- Drug form: l 19:37: INJ, ONCE, Stop date: 12/05/21 14:37:00 CDT hydromorpho No Route: IV, Memoria ne (ANES) - Drug form: l 19:37: INJ, ONCE, Stop date: 12/05/21 14:37:00 CDT lidocaine No Route: IV, Me moria (ANES) 4- Drug form: l 19:22: INJ, ONCE, Stop date: 12/05/21 14:22:00 CDT lidocaine No Route: IV, Me moria (ANES) 4- Drug form: l 19:22: INJ, ONCE, Stop date: 12/05/21 14:22:00 CDT midazolam No Route: IV, Me moria (ANES) 4- Drug form: l 19:17: SOLN, ONCE, Stop date: 12/05/21 14:17:00 CDT fentaNYL No Route: IV, Mem oria (ANES) 4- Drug form: l 19:17: INJ, ONCE, Stop date: 12/05/21 14:17:00 CDT propofol No Route: IV, Mem oria (ANES) 4- Drug form: l 19:17: INJ, ONCE, Stop date: 12/05/21 14:17:00 CDT rocuronium 0 No Route: IV, M emoria (ANES) 12-05 Drug form: l 19:17: INJ, ONCE, Stop date: 12/05/21 14:17:00 CDT midazolam 2021-0 No Route: IV, Me moria (ANES) 12-05 Drug form: l 19:17: SOLN, ONCE, Stop date: 12/05/21 14:17:00 CDT fentaNYL 2021-0 No Route: IV, Mem oria (ANES) 12-05 Drug form: l 19:17: INJ, ONCE, Stop date: 12/05/21 14:17:00 CDT propofol 0 No Route: IV, Mem oria (ANES) 12-05 Drug form: l 19:17: INJ, ONCE, Stop date: 12/05/21 14:17:00 CDT rocuronium 0 No Route: IV, M emoria (ANES) 12-05 Drug form: l 19:17: INJ, ONCE, Stop date: 12/05/21 14:17:00 CDT dexamethaso 0 No Route: IV, Memoria ne (ANES) 12-05 Drug form: l 18:37: INJ, ONCE, Stop date: 12/05/21 13:37:00 CDT ceFAZolin 0 No Route: IV, Me moria (ANES) 12-05 Drug form: l 18:37: INJ, ONCE, Stop date: 12/05/21 13:37:00 CDT dexamethaso 0 No Route: IV, Memoria ne (ANES) 12-05 Drug form: l 18:37: INJ, ONCE, Stop date: 12/05/21 13:37:00 CDT ceFAZolin 2021-0 No Route: IV, Me moria (ANES) 12-05 Drug form: l 18:37: INJ, ONCE, Stop date: 12/05/21 13:37:00 CDT ketOROLAC 2022-0 No 4 days Memor ia 30 mg/mL 12-05 l injectable 18:29: MEDICATION H ermann solution 00 WASTE Product Size: 30 mg Product Wasted: ___ mg [place] 5/325 No Notes: Devin latrice oral tablet 12-05 (Same as: l 18:29: [place] 00 325/5) Do not exceed 4gm/day of acetaminop hen. ketOROLAC No 4 days Memor ia 30 mg/mL 12-05 l injectable 18:29: MEDICATION H ermann solution 00 WASTE Product Size: 30 mg Product Wasted: ___ mg [place] 5/325 No Notes: Devin latrice oral tablet 12-05 (Same as: l 18:29: [place] 00 325/5) Do not exceed 4gm/day of acetaminop hen. Lactated No Route: IV, Mem oria Ringers - Total l Injection 18:22: Volume: Cindy nn IV (ANES) 00 1,000, 1000 mL Start date: 12/05/21 13:22:00 CDT, Stop date: 12/05/21 14:22:00 CDT Lactated No Route: IV, Mem oria Ringers -26 Total l Injection 18:22: Volume: Cindy nn IV (ANES) 00 1,000, 1000 mL Start date: 12/05/21 13:22:00 CDT, Stop date: 12/05/21 14:22:00 CDT celecoxib No Notes: Memori a - NSAID. l 15:17: Please [place] 00 check indication . Not for seizure. (Same As: CeleBREX) gabapentin No Notes: Memor ia - (Same as: l 15:17: Neurontin) [place] 00 acetaminoph No Notes: Max Memoria en -26 acetaminop l 15:17: hen 4000 [place] 00 mg/day (4 gm/day). (Same as: Tylenol Extra Strength) acetaminoph No Notes: Max Memoria en -26 acetaminop l 15:17: hen 4000 [place] 00 mg/day (4 gm/day). (Same as: Tylenol Extra Strength) celecoxib No Notes: Memori a 12-05 NSAID. l 15:17: Please [place] 00 check indication . Not for seizure. (Same As: CeleBREX) gabapentin No Notes: Memor ia 12-05 (Same as: l 15:17: Neurontin) [place] Lactated No 1,000 mL, Devin latrice Ringers 12-05 Rate: 75 l Injection 15:16: ml/hr, [place] n IV 1,000 mL 00 Infuse over: 13.3 hr, Route: IV, Dosing Weight 80.909 kg, Total Volume: 1,000, Start date: 12/05/21 10:16:00 CDT, Duration: 30 day, Stop date: 01/04/22 10:15:00 CDT, BSA: 1.96 m2, 0 Lactated No 1,000 mL, Devin latrice Ringers 12-05 Rate: 75 l Injection 15:16: ml/hr, [place] n IV 1,000 mL 00 Infuse over: 13.3 hr, Route: IV, Dosing Weight 80.909 kg, Total Volume: 1,000, Start date: 12/05/21 10:16:00 CDT, Duration: 30 day, Stop date: 01/04/22 10:15:00 CDT, BSA: 1.96 m2, 0 Ancef No Notes: Memoria 12-05 Same as l 11:00: Ancef [place] Lactated No 1,000 mL, Devin latrice Ringers 12-05 Rate: 125 l Injection 11:00: ml/hr, [place] n IV 1,000 mL 00 Infuse over: 8 hr, Route: IV, Dosing Weight 80.909 kg, Total Volume: 1,000, Start date: 12/05/21 6:00:00 CDT, Duration: 30 day, Stop date: 01/04/22 5:59:00 CDT, BSA: 1.96 m2, 0 Ancef No Notes: Memoria 12-05 Same as l 11:00: Ancef [place] Lactated No 1,000 mL, Devin latrice Ringers 4-26 Rate: 125 l Injection 11:00: ml/hr, [place] n IV 1,000 mL 00 Infuse over: 8 hr, Route: IV, Dosing Weight 80.909 kg, Total Volume: 1,000, Start date: 12/05/21 6:00:00 CDT, Duration: 30 day, Stop date: 01/04/22 5:59:00 CDT, BSA: 1.96 m2, 0 hydrOXYzine 2022-0 Yes 25 mg = 1 M emoria pamoate 25 4-25 cap, PO, l mg oral 19:58: Bedtime, 0 Herm roni capsule 00 Refill(s) hydrOXYzine 2022-0 Yes 25 mg = 1 M emoria pamoate 25 4-25 cap, PO, l mg oral 19:58: Bedtime, 0 Herm roni capsule 00 Refill(s) carvedilol 2022-0 Yes 6.25 mg = Me moria 6.25 mg 4-25 1 tab, PO, l oral tablet 19:57: BID, 0 Herm roni 00 Refill(s) carvedilol 2022-0 Yes 6.25 mg = Me moria 6.25 mg 4-25 1 tab, PO, l oral tablet 19:57: BID, 0 Herm roni 00 Refill(s) Trileptal 2-0 Yes 150 mg, Memor ia 4-25 PO, l 19:56: Bedtime, # [place] 00 30 tab, 0 Refill(s) Trileptal 2022-0 Yes 150 mg, Memor ia 4-25 PO, l 19:56: Bedtime, # [place] 00 30 tab, 0 Refill(s) Risperdal 2022-0 Yes 2 mg = 2 Devin latrice M-Tab 1 mg 4-25 tab, PO, l oral 19:53: Bedtime, # [place] tablet, 00 60 tab, 0 disintegrat Refill(s) ing Risperdal 2022-0 Yes 2 mg = 2 Devin latrice M-Tab 1 mg 4-25 tab, PO, l oral 19:53: Bedtime, # [place] tablet, 00 60 tab, 0 disintegrat Refill(s) ing oxcarbazepi 2-0 Yes [facility] (TRILEPTAL 02:50: Medical ORAL) 01 Center oxcarbazepi Yes Take [facility] 3-[facility] (TRILEPTAL 02:50: Medical ORAL) 01 Center multivitami Yes 1{capsu QD Take [address] n capsule 3-27 le} capsule by Luke s 21:57: mouth Medical 40 daily. Center ascorbic Yes QD Take by [facility] acid/multiv 3-27 mouth [facility] it-min 21:57: daily . Medical (EMERGEN-C 40 Center IMMUNE PLUS ORAL) ferrous Yes 325mg Take 325 [facility] sulfate 325 3-27 mg by [facility]ukes (65 FE) MG 21:57: mouth Medica l [...] Center times daily as needed for Itching. multivitami Yes 1{capsu QD Take [address] n capsule 3-27 le} capsule by Luke s 21:57: mouth Medical 40 daily. [place] ascorbic Yes QD Take by [facility] acid/multiv 3-27 mouth [facility] it-min 21:57: daily . Medical (EMERGEN-C 40 Center IMMUNE PLUS ORAL) ferrous Yes 325mg Take 325 [facility] sulfate 325 3-27 mg by [facility]ukes (65 FE) MG 21:57: mouth Medica l tablet 40 daily with Center breakfast. risperiDONE 0 Yes 2mg Q.5D Take 2 mg C [...] l hours as needed for moderate pain. keTOROlac 2019-08 Yes 10mg Q6H Take [...] hours as needed for nausea or vomiting. ondansetron 2019-08 [...] 16:36 ONCE, 1 [place] 00 :00 dose, [facility] 05/22/20 Branch at 1245, STAT ketorolac 2019-08- No 30mg 30 mg, Unive rs (TORADOL) 0-11 10-11 Slow IV ity of injection 16:30: 15:39 Push, [place] 30 mg 00 :00 ONCE, 1 Medical dose, [facility] 05/22/20 at 1130, Routine
presentation team member approving Restricted medication : ANA BOO cephALEXin 2019-08 2020- No 500mg Take 500 U nivers (KEFLEX) 0-11 10-11 mg by ity of 500 mg 16:27: 00:00 mouth 4 [place] capsule 49 :00 (four) Medical times Branch daily. cephALEXin 2018- Yes 500mg Take 500 Un annette (KEFLEX) 6-05 mg by ity of 500 mg 13:59: mouth 4 [place] capsule 29 (four) Medical times Branch daily. cephALEXin 2018- Yes 500mg Take 500 Un annette (KEFLEX) 6-05 mg by ity of 500 mg 13:59: mouth 4 [place] capsule 29 (four) Medical times Branch daily. norgestimat 2019 Yes [id number] 1{tbl} Take 1 Univers e-ethinyl 6-05 tablet by ity o f estradiol 00:00: mouth [place] (ORTHO 00 daily. Medical TRI-CYCLEN Branch , 28,) 0.18/0.215/ 0.25 mg-25 mcg tablet norgestimat Yes [id number] 1{tbl} Take 1 Univers e-ethinyl 6-05 tablet by ity o f estradiol 00:00: mouth [place] (ORTHO 00 daily. Medical TRI-CYCLEN Branch , 28,) 0.18/0.215/ 0.25 mg-25 mcg tablet norgestimat 2020- No [id number] 1{tbl} Take 1 Univers e-ethinyl 6-05 10-11 tablet by ity of estradiol 00:00: 00:00 mouth [place] (ORTHO 00 :00 daily. Medical TRI-CYCLEN Branch , 28,) 0.18/0.215/ [...] PAIN CONTROL No known No Univers medications [facility] No known No Univers medications [facility] Immunizations Ordered Filled Immunization Date Status Comments [facility] e Immunization Name Name Influenza Four-QIV 2021-09-[address] [facility] PF 6+MO IM ([id number]) 00:00:00 [facility] Influenza Four-QIV 2021-09-[address] [facility] PF 6+MO IM ([id number]) 00:00:00 [facility] [id number] 2021-08-31 Completed Obinna Lundberg RNA-1273vaxMODERNA 00:00:00 [id number] 2021-08-31 Completed Memor ial [place] RNA-1273vaxMODERNA 00:00:00 [id number] 2020-11-18 Completed Memor ial [place] RNA-1273vaxMODERNA 00:00:00 [id number] 2020-11-18 Completed Memor ial [place] RNA-1273vaxMODERNA 00:00:00 HPV9 2019-03-04 Completed University of 00:00:00 [facility] HPV9 2019-03-04 Completed University of 00:00:00 [facility] HPV9 2019-03-04 Completed University of 00:00:00 [facility] HPV9 2019-03-04 Completed University of 00:00:00 [facility] HPV9 2019-03-04 Completed University of 00:00:00 [facility] HPV9 2019-03-04 Completed University of 00:00:00 [facility] HPV9 2019-03-04 Completed University of 00:00:[address] [facility] [place] 2019-01-14 Completed University of 00:00:[address] [facility] [place] 2019-01-14 Completed University of 00:00:[address] [facility] [place] 2019-01-14 Completed University of 00:00:[address] [facility] [place] 2019-01-14 Completed University of 00:00:[address] [facility] [place] 2019-01-14 Completed University of 00:00:[address] [facility] [place] 2019-01-14 Completed University of 00:00:[address] [facility] [place] 2019-01-14 Completed University of 00:00:00 [facility] Vital Signs Vital Name Observation Time Observation [...] 20:00:23 124 mm[Hg] Univer sity of pressure [place] [facility] Diastolic blood 2022-02-27 20:00:23 81 mm[Hg] Unive rsity of pressure [place] [facility] Heart rate 2022-02-27 20:00:23 76 /min [facility] [place] [facility] Respiratory rate 2022-02-27 20:00:23 18 /min Univ ersity of [place] [facility] Oxygen saturation in 2022-02-27 20:00:23 100 /min University of Arterial blood by [place] [employer] juany Pulse oximetry Branch Body temperature 2022-02-27 18:26:00 37.06 Sheree Univ ersity of [place] [facility] Body height 2022-02-27 18:26:00 167.6 cm [facility] [place] [facility] Body weight 2022-02-27 18:26:00 79.379 kg [facility] [place] [facility] BMI 2022-02-27 18:26:00 28.25 kg/m2 [facility] [place] [facility] Systolic blood 2022-01-25 17:00:00 120 mm[Hg] Univer sity of pressure [place] [facility] Diastolic blood 2022-01-25 17:00:00 73 mm[Hg] Unive rsity of pressure [place] [facility] Heart rate 2022-01-25 17:00:00 63 /min [facility] [place] [facility] Respiratory rate 2022-01-25 17:00:00 18 /min Univ ersity of [place] [facility] Oxygen saturation in 2022-01-25 17:00:00 98 /min University of Arterial blood by [place] [employer] juany Pulse oximetry Branch Body temperature 2022-01-25 14:20:00 37.56 Sheree Univ ersity of [place] [facility] Body height 2022-01-25 14:20:00 167.6 cm [facility] [place] [facility] Body weight 2022-01-25 14:20:00 79.833 kg [facility] [place] [facility] BMI 2022-01-25 14:20:00 28.41 kg/m2 [facility] [place] [facility] HEIGHT 2021-11-05 21:55:00 167.6 cm WEIGHT 2021-11-05 [...] 17:30:00 116 mm[Hg] Univer sity of pressure [facility] Diastolic blood 2021-04-03 17:30:00 58 mm[Hg] Unive rsity of [facility] Heart rate 2021-04-03 17:30:00 62 /min General acute hospital Respiratory rate 2021-04-03 17:30:00 17 /min [facility] Oxygen saturation in 2021-04-03 17:30:00 100 /min [facility] Arterial blood by [facility] Pulse oximetry Branch Body temperature 2021-04-03 16:14:00 37.17 Sheree [facility] Body height 2021-04-03 16:14:00 167.6 cm [facility] acute hospital Body weight 2021-04-03 16:14:00 73.483 kg General acute hospital BMI 2021-04-03 16:14:00 26.15 kg/m2 [facility] Branch HEIGHT 2020-11-29 23:55:00 167.6 cm WEIGHT 2020-11-29 23:55:00 64.864 kg HEIGHT 2020-11-08 13:25:00 167.6 cm WEIGHT 2020-11-08 13:25:00 65.318 kg HEIGHT 2020-10-26 11:21:00 167.6 cm WEIGHT 2020-10-26 11:21:00 65.318 kg WEIGHT 2020-08-23 06:03:00 72.122 kg HEIGHT 2020-08-23 06:03:00 167.6 cm HEIGHT 2020-08-22 10:38:00 167.6 cm WEIGHT 2020-08-22 10:38:00 72.122 kg Systolic blood 2020-05-22 16:36:00 121 mm[Hg] Univer sity of pressure [facility] Branch Diastolic blood 2020-05-22 16:36:00 85 mm[Hg] Unive rsity of pressure [facility] Branch Heart rate 2020-05-22 16:36:00 62 /min [facility] [place] [facility] Respiratory rate 2020-05-22 16:36:00 16 /min Univ ersity of [place] [facility] Oxygen saturation in 2020-05-22 16:36:00 100 /min University of Arterial blood by [facility] Pulse oximetry Branch Body temperature 2020-05-22 15:02:00 35.89 Sheree Univ ersity of [facility] Body weight 2020-05-22 15:02:00 74.844 kg Universi ty [facility] BMI 2020-05-22 15:02:00 26.63 kg[facility] Branch Systolic blood 2020-05-22 16:36:00 121 mm[Hg] Univer sity of pressure [facility] Branch Diastolic blood 2020-05-22 16:36:00 85 mm[Hg] Unive rsity of pressure [place] [facility] Heart rate 2020-05-22 16:36:00 62 /min [facility] [place] [facility] Respiratory rate 2020-05-22 16:36:00 16 /min Univ ersity of [place] [facility] Oxygen saturation in 2020-05-22 16:36:00 100 /min [facility] Arterial blood by [employer] juany Pulse oximetry Branch Body temperature 2020-05-22 15:02:00 35.89 Sheree [facility] Body weight 2020-05-22 15:02:00 74.844 kg General acute hospital BMI 2020-05-22 15:02:00 26.63 kg/m2 General acute hospital Heart Rate 2021-12-06 13:04:21 [facility] Respitory Rate 2021-12-06 13:04:21 [facility] [place] Diastolic (mm Hg) 2021-12-06 13:04:03 Mem [facility] Heart Rate 2021-12-06 13:04:03 [facility] [place] Systolic (mm Hg) 2021-12-06 13:04:03 Devin rial [place] Temperature Oral (F) 2021-12-06 13:03:39 98 F [facility] Heart Rate 2021-12-06 08:25:08 [facility] Respitory Rate 2021-12-06 08:25:08 [facility] Systolic (mm Hg) 2021-12-06 08:24:53 Devin rial [place] Diastolic (mm Hg) 2021-12-06 08:24:53 Mem [facility] Temperature Oral (F) 2021-12-06 08:24:27 98.2 F [facility] [place] Respitory Rate 2021-12-06 04:07:25 [facility] Systolic (mm Hg) 2021-12-06 04:06:51 Devin rial [facility] Diastolic (mm Hg) 2021-12-06 04:06:51 Mem orial [place] Temperature Oral (F) 2021-12-06 04:06:42 98.3 F [facility] Height 2021-12-06 02:26:00 165.1 cm [facility] Weight 2021-12-06 02:26:00 [facility] BMI Calculated 2021-12-06 02:26:00 [facility] [place] Weight 2021-12-05 15:35:00 [facility] BMI Calculated 2021-12-05 15:35:00 [facility] [place] Height 2021-12-04 19:52:00 167.64 cm [facility] [place] Systolic blood 2021-11-06 02:49:00 121 mm[Hg] [facility] Diastolic blood 2021-11-06 02:49:00 86 mm[Hg] [facility] Heart rate 2021-11-06 02:49:00 83 /min [facility] Body temperature 2021-11-06 02:49:00 36.89 Sheree [facility] Respiratory rate 2021-11-06 02:49:00 15 /min [facility] Oxygen saturation in 2021-11-06 02:49:00 99 /min [facility] Arterial blood by Medical Ce nter Pulse oximetry Body height 2021-11-05 21:55:00 167.6 cm [facility] Body weight 2021-11-05 21:55:00 78.019 kg [facility] BMI 2021-11-05 21:55:00 27.76 kg/m2 [facility] Procedures Procedure Date / Time Performing Clinician Source Performed POCT TEST 2022-02-27 19:01:00 Capo Lobo [facility] TROPONIN I 2022-02-27 18:57:00 Singer [facility] COMP. METABOLIC PANEL 2022-02-27 18:57:00 Capo Lobo [facility] ([id number]) [facility] CBC WITH DIFF 2022-02-27 18:57:00 Lobo, [facility] URINALYSIS 2022-02-27 18:57:00 [facility] COVID-19 (ID NOW RAPID 2022-02-27 18:57:00 Singer Capo [facility] TESTING) Medical [place] XR CHEST 1 VW 2022-02-27 18:40:16 Lobo, [facility] CONSENT/REFUSAL FOR 2022-02-27 18:15:15 Doctor Unassigned, [facility] DIAGNOSIS AND TREATMENT [facility] CREATINE KINASE 2022-01-25 14:41:00 Petrona Pan [facility] MAGNESIUM 2022-01-25 14:41:00 Petrona Pan [facility] COMP. METABOLIC PANEL 2022-01-25 14:41:00 Petrona [facility] ([id number]) Medical Branch CBC WITH DIFF 2022-01-25 14:41:00 Petrona Pan [facility] URINALYSIS 2022-01-25 14:38:00 Petrona Pan [facility] NOTICE OF PRIVACY 2022-01-25 14:16:02 Doctor Unassigned, [facility] PRACTICES [facility] CONSENT/REFUSAL FOR 2022-01-25 14:11:03 Doctor Unassigned, [facility] DIAGNOSIS AND TREATMENT [facility] CT BRAIN WITHOUT IV 2021-11-06 00:08:00 May Mullins [facility] S [facility] CONTRAST Center CT SPINE CERVICAL WITHOUT 2021-11-06 00:08:00 Susanna May Cristine [facility] IV CONTRAST Center ECG 12-LEAD 2021-11-05 22:40:48 Susanna [facility] ECG 12-LEAD 2021-11-05 22:40:48 Unknown, [facility] ECG 12-LEAD 2021-11-05 22:40:48 Unknown, [facility] CBC W/PLT COUNT & AUTO 2021-11-05 22:38:00 May Mullins [facility] DIFFERENTIAL [place] COMPREHENSIVE METABOLIC 2021-11-05 22:38:00 May Mullins [facility] PANEL Center HCG, QUANTITATIVE, 2021-11-05 22:38:00 Susanna May Cristine [facility] [place] LACTIC ACID, VENOUS 2021-11-05 22:38:00 May Mullins [facility] HIGH SENSITIVITY TROPONIN 2021-11-05 22:38:00 May Mullins [facility] I [place] CBC W/PLT COUNT & AUTO 2021-11-05 22:38:00 Susanna May R [facility] DIFFERENTIAL [place] EKG-SCANNED 2021-11-05 00:00:00 Nate Mace [facility] Scanning Center CBC W/PLT COUNT & AUTO 2021-09-04 04:15:00 Sindhu Medeiros [facility] DIFFERENTIAL [place] BASIC METABOLIC PANEL (7) 2021-09-04 04:15:00 Sindhu Medeiros [facility] MAGNESIUM 2021-09-04 04:15:00 Sindhu Medeiros [facility] C-REACTIVE PROTEIN 2021-09-04 04:15:00 Sindhu Medeiros [facility] ANTI-NUCLEAR ANTIBODY 2021-09-04 04:15:00 Sindhu Medeiros [facility] ([facility] Center CBC W/PLT COUNT & AUTO 2021-09-04 04:15:00 Sindhu Medeiros [facility] BLOOD CULTURE 2021-09-04 04:14:00 Sindhu Medeiros [facility] CTA BRAIN 2021-09-03 18:38:00 Robson Mckenzie [facility] Brendon Anita [place] CBC W/PLT COUNT & AUTO 2021-09-03 04:45:00 [facility] BASIC METABOLIC PANEL (7) 2021-09-03 04:45:00 [facility] MAGNESIUM 2021-09-03 04:45:00 [facility] CBC W/PLT COUNT & AUTO 2021-09-03 04:45:00 [facility] 2D ECHO W/ DOPPLER 2021-09-02 17:12:55 [facility] (CW/PW/COLOR) [facility] TROPONIN I 2021-09-02 06:46:00 [facility] TROPONIN I 2021-09-02 03:53:00 [facility] BASIC METABOLIC PANEL (7) 2021-09-02 03:53:00 [facility] LIPID PANEL 2021-09-02 03:53:00 [facility] PROTHROMBIN TIME/INR 2021-09-02 03:53:00 [facility] MAGNESIUM 2021-09-02 03:53:00 [facility] Center PHOSPHORUS 2021-09-02 03:53:00 [facility] CBC W/PLT COUNT & AUTO 2021-09-02 03:53:00 [facility] DIFFERENTIAL [facility] TSH/FREE T4 IF INDICATED 2021-09-02 03:53:00 [facility] HEMOGLOBIN A1C 2021-09-02 03:53:00 [facility] FERRITIN 2021-09-02 03:53:00 [facility] IRON, TIBC, % SAT. 2021-09-02 03:53:00 [facility] (WITHOUT FERRITIN) [facility] CBC W/PLT COUNT & AUTO 2021-09-02 03:53:00 [facility] DIFFERENTIAL [facility] MR BRAIN WITH & WITHOUT IV 2021-09-02 00:00:00 Kailey Juárez [facility] CONTRAST [facility] URINALYSIS W/ MICROSCOPIC 2021-09-01 22:32:00 Kailey Juárez [facility] RAPID DRUG SCREEN, URINE 2021-09-01 22:32:00 [facility] US PELVIS WITH ENDOVAG 2021-09-01 20:25:00 Kailey Juárez [facility] WITH DOPPLER [facility] CT BRAIN WITHOUT IV 2021-09-01 18:12:00 Kailey Juárez [facility] CONTRAST [facility] SARS-COV2/RT-PCR ([facility] & 2021-09-01 18:01:00 Kailey Juárez I [facility] REF LABS) [facility] CBC W/PLT COUNT & AUTO 2021-09-01 17:53:00 Kailey Juárez [facility] DIFFERENTIAL [facility] BASIC METABOLIC PANEL (7) 2021-09-01 17:53:00 Kailey Juárez [facility] TROPONIN I 2021-09-01 17:53:00 Kailey Juárez [facility] D-DIMER 2021-09-01 17:53:00 Marquita [facility] CBC W/PLT COUNT & AUTO 2021-09-01 17:53:00 [facility] VIEW PORTABLE / 2021-09-01 17:48:00 Kailey Juárez [facility] ECG INTERPRETATION 2021-09-01 17:35:00 Kailey Juárez [facility] EKG-SCANNED 2021-09-01 00:00:00 ProviderNate [facility] URINALYSIS 2021-04-03 16:46:00 [facility] 2021-04-03 16:36:00 Hussain [facility] HEPATIC FUNCTION PANEL 2021-04-03 16:36:00 Nixon, [facility] ([id number]) (ALB,T.PRO,BILI [facility] T,BU/BC,ALT,AST,ALK PHOS) BASIC METABOLIC PANEL (NA, 2021-04-03 16:36:00 Nixon, [facility] K, CL, CO2, GLUCOSE, BUN, Medica l Branch CREATININE, [place]) CBC WITH DIFF 2021-04-03 16:36:00 Hussain Marli [facility] CONSENT/REFUSAL FOR 2021-04-03 16:08:40 Doctor Unassigned, [facility] DIAGNOSIS AND TREATMENT [facility] HYSTERECTOMY 2020-11-08 05:00:00 [facility] spencer CHOLECYSTECTOMY 2020-07-31 06:00:00 [facility] XR CHEST 1 VW 2020-05-22 15:46:02 Ana Boo [facility] COVID-19 (ID NOW RAPID 2020-05-22 15:32:00 Ana Boo [facility] TESTING) Medical Branch LIPASE 2020-05-22 15:21:00 Oren Young o f [facility] TROPONIN I 2020-05-22 15:21:[address] [facility] COMP. METABOLIC PANEL 2020-05-22 15:21:00 Oren Young [facility] ([id number]) [facility] [place] CBC WITH DIFF 2020-05-22 15:21:[address] [facility] PROTHROMBIN TIME / INR 2020-05-22 15:21:00 Oren Young [facility] D-DIMER 2020-05-22 15:21:00 Ana Boo [facility] ACTIVATED PARTIAL THRMPLAS 2020-05-22 15:21:00 Oren Young [facility] URINALYSIS 2020-05-22 15:21:[address] [facility] POCT TEST 2020-05-22 15:21:00 Oren Young [facility] acute hospital EKG-12 LEAD 2020-05-22 15:08:[address] [facility] NOTICE OF PRIVACY 2020-05-22 14:53:53 Doctor Unassigned, [facility] PRACTICES [facility] [place] CONSENT/REFUSAL FOR 2020-05-22 14:52:25 Doctor Unassigned, [facility] DIAGNOSIS AND TREATMENT [facility] Plan of Care Planned Activity Planned Date Details Comments Source Future Scheduled 2022-04-13 [facility]IT[facility] Test 17:39:34 VACCINES (1 of 3 - 3-dose series) [code = HEPATITIS B VACCINES (1 of 3 - 3-dose series)] Future Scheduled 2022-04-13 COVID-19 [facility] 17:39:34 (#1) [code = COVID-19 VACCINE (#1)] Future Scheduled 2022-04-13 Hepatitis C [facility] Test 17:39:34 screening (procedure) [code = 660070914] Future Scheduled 2022-04-13 [facility] Test 17:39:34 malignant neoplasm of cervix (procedure) [code = 224821036] Future Scheduled 2022-04-13 INFLUENZA VACCINE Method [facility] Test 17:39:34 [code = INFLUENZA VACCINE] Future Scheduled 2022-04-13 [facility]ITIS [facility] 17:39:34 VACCINES (1 of 3 - 3-dose series) [code = HEPATITIS B VACCINES (1 of 3 - 3-dose series)] Future Scheduled 2022-04-13 COVID-[address] [facility] Test 17:39:34 (#1) [code = COVID-19 VACCINE (#1)] Future Scheduled 2022-04-13 [facility] Test 17:39:34 screening (procedure) [code = 730028829] Future Scheduled 2022-04-13 [facility] Test 17:39:34 malignant neoplasm of cervix (procedure) [code = 077065913] Future Scheduled 2022-04-13 INFLUENZA VACCINE Method ist Hospital Test 17:39:34 [code = INFLUENZA VACCINE] Future Scheduled 2022-04-[address] [facility] Test 00:00:00 (#1) [code = Medical Center INFLUENZA VACCINE (#1)] Future Scheduled 2022-04-[address] [facility] Test 00:00:00 (#1) [code = [facility] Center INFLUENZA VACCINE (#1)] Future Scheduled [address] [facility] Test 00:00:00 malignant neoplasm Medical C enter of cervix (procedure) [code = 325810166] Future Scheduled [address] [facility] [facility] Test 00:00:00 malignant neoplasm Medical C enter of cervix (procedure) [code = 198020716] Future Scheduled 2012 DTAP/TDAP/TD [facility] Test 00:[facility] VACCINES (1 - Tdap) Medical Center [code = DTAP/TDAP/TD VACCINES (1 - Tdap)] Future Scheduled 2012 DTAP/TDAP/TD [facility] Test 00:00:00 VACCINES (1 - Tdap) Medical Center [code = DTAP/TDAP/TD VACCINES (1 - Tdap)] Future Scheduled [address] [facility] Test 00:00:00 SCREENING [code = Medical Ce nter HEPATITIS C SCREENING] Future Scheduled [address] [facility] Test 00:00:00 SCREENING [code = Medical Ce nter HEPATITIS C SCREENING] Future Scheduled 1994-01-17 COVID-[address] [facility] Test 00:00:00 (#1) [code = Medical Center COVID-19 VACCINE (#1)] Future Scheduled 1994-01-17 COVID-[address] [facility] Test 00:00:00 (#1) [code = [facility] Center COVID-19 VACCINE (#1)] Encounters Start End Encounter Admission Attending Care Care Encounter Source Date/Time Date/Time Type Type Clinicians Facility Department ID 2022-01-04 Outpatient [facility] [id number] [place] 11:31:03 [id number] Health 2021-06-12 Emergency [facility] [id number] Univers 17:22:42 ity [facility] 2021-06-09 Emergency [facility] [id number] Univers 22:15:34 ity [facility] 2021-05-20 Outpatient [facility] Surgery [id number] [facility] 08:16:10 [place] 2021-05-19 [facility] [id number] [facility] 22:29:12 [place] 2020-11-29 [id number] 23:35:00 [facility] 2022-02-27 2022-02-27 Emergency X [facility] ERT [id number] Univers 13:28:00 15:09:00 CAPO mathis [facility] 2022-02-27 2022-02-27 Emergency [facility] [id number] Univers 13:28:00 15:09:00 Capo CLEANING [id number] i ty [facility] [id number] [facility] [id number] [address] 2022-01-25 2022-01-25 Emergency [facility] [id number] Univers 09:24:00 12:05:00 PETRONA mathis [facility] 2022-01-25 2022-01-25 [facility] [id number] Univers 09:24:00 12:05:00 Petrona CLEANING [id number] ity [facility] [id number] [facility] [id number] [address] 2021-12-05 2021-12-06 Inpatient Count includes the [facility] [id number] [facility] 15:12:00 16:35:00 r Toño 00 l [place] Cindy nn 2021-12-05 2021-12-06 Inpatient Count includes the [facility] [id number] [facility] 15:12:00 16:35:00 r [place] 00 l [place] Cindy nn 2021-12-05 2021-12-06 Inpatient JUAN, MHFB [facility]FB 7500 [facility]FB 10:12:00 11:35:00 BEATRIZ 2021-12-05 2021-12-06 Outpatient Juan, MHSL [facility] [id number] 10:12:00 11:35:00 Beatriz L 00 2021-11-05 2021-11-06 Emergency ER [facility] Emergency [id number] SLE 22:00:00 02:50:00 MCDONOUGH 2021-11-05 2021-11-06 Emergency ER [facility], [facility] [id number] 22:00:00 02:50:00 [facility] 2021-11-05 2021-11-06 Emergency [facility], [facility] [id number] 22:00:00 02:50:00 [facility] 2021-11-05 2021-11-05 Outpatient [facility] [id number] [facility] 00:00:00 23:59:00 Marissa Medicpo hanson 2021-11-05 2021-11-05 Orders [facility] [id number] 00:00:00 00:00:00 Only [facility] 2021-11-05 2021-11-[address] [facility] [id number] [facility] 00:[facility]00 00:00:00 [facility] 2021-11-05 2021-11-05 Orders [facility] [id number] 00:00:00 00:00:00 [facility] 2021-11-05 2021-11-[address] [facility] [id number] [facility] 00:[facility]00 00:00:00 [facility] 2021-09-01 2021-09-04 [facility] [id number] [facility] 17:19:00 15:02:00 [facility] 2021-09-01 2021-09-04 [facility] [id number] 17:19:00 15:02:00 Encounter Tiffanie Morgan kuldip [facility] 2021-09-01 2021-09-04 [facility] [id number] 17:19:00 15:02:00 Encounter Tiffanie [facility] 2021-09-02 2021-09-[address] [facility] [id number] [facility] 00:00[facility]00 00:00:00 [facility] 2021-09-02 2021-09-[address] [facility] [id number] [facility] 00:00[facility]00 00:00:00 [facility] 2021-04-03 2021-04-03 Emergency [facility], [facility] [id number] Univers 11:16:00 13:07:00 Marli Cleaning [id number] i ty [facility] 4.2.7.2.686 [facility] [id number] [facility] 084 Branch 2021-04-03 2021-04-03 Orders Doctor ZORA [id number] Univers 00:00:00 00:00:00 Only Unassigned, KIRA [id number] ity of [place] [facility] [address] [place] [address] [id number] [facility] 009 Branch 2020-11-21 2020-11-21 Emergency ER SLSL Emergency [id number] SLS 15:47:00 15:47:00 2020-11-03 2020-11-03 Outpatient EL [facility] [id number] [facility] 00:00:00 00:00:00 2020-10-22 2020-10-22 Emergency [place] [id number] [place] 00:00:00 00:00:00 [address] 2020-08-19 2020-08-19 Outpatient EL SLSL [facility] [id number] [facility] 00:00:00 00:00:00 2020-08-16 2020-08-16 Outpatient HIDALGO, [facility] [id number] [place] 00:00:00 00:00:00 SYEDA 745 Meth violet 2020-08-10 2020-08-10 Emergency PEREZ, [facility] 064 [id number] [place] 00:00:00 00:00:00 ERLINDA 417 Method i 2020-07-21 2020-07-23 Inpatient , [facility] 064 [id number] [place] 00:00:00 00:00:00 SIDRAH 738 Method i 2020-07-12 2020-07-12 Outpatient GWEN, [facility] [id number] [place] 00:00:00 00:00:00 SYEDA 514 Meth violet 2020-07-05 2020-07-05 Emergency TANYA BARTON [facility] [id number] [place] 00:00:00 00:00:00 916 Method i 2020-05-22 2020-05-22 Outpatient R EMA, [facility] [id number] [facility] 13:30:00 13:30:00 ANA [id number] ity of [facility] 2020-05-22 2020-05-22 Emergency [facility] [id number] [facility] 10:05:00 12:50:00 Ana Cleaning [id number] ity of [place] 4.2.7.2.686 [facility] [id number] [address] 2020-05-22 2020-05-22 Emergency [facility] [id number] 10:05:00 12:50:00 Ana Cleaning [id number] [place] [address] [place] [address] [id number] [facility] 2020-05-22 2020-05-22 Orders Doctor ZORA [id number] [place] [address] 00:00:00 00:00:00 Only Unassigned, KIRA [id number] 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 [id number] ity of [facility] 4.2.7.2.686 Biju as MATERNAL [id number] Med ical & CHILD [address] [place] [address] 2019-03-12 2019-03-12 Telephone [facility] [id number] 00:00:00 00:00:00 Lauren C OCCUPATIONAL THERAPY PROFESSOR [id number] [facility] 4.2.7.2.686 MATERNAL [id number] & CHILD [address] [place] [address] Results Test Description Test Time Test Comments Results Result Comments Source TROPONIN I 2022-02-27 19:33:51 Test Item Value Reference Range Interpretation Comme nts TROPONIN I (test code = 0.003 ng/mL See_Comment [Au tomated message] The [id number]) system which ge nerated this result tra [...] biotin. Lab Interpretation Normal (test code = 91941-9) [facility] WITH [id number] 19:24:09 Test Item Value Reference Range Interpretation [...] RDW-SD (test code = 40.0 fL 39-49.9 20754-1) RDW-CV (test code = 14.1 % 12-15.5 788-0) PLT (test code = See_Comment [Automated 777-3) message] The sy stem which generated this result transmitted reference range : 166 - 358 10*3/ ?L. The reference r ryann was not used to interpret this result as normal/abnormal . MPV (test code = 10.4 fL 9.5-12.9 53386-8) NRBC/100 WBC (test See_Comment [Automat ed code = 9121114504) message] The system which generated this result transmitted reference range : 0.0 - 10.0 /100 WBCs. The refer ence range was not u sed to interpret th is result as normal/abnormal . NRBC x10^3 (test code See_Comment [Auto mated = 0788223924) message] The s ystem which generated this result transmitted reference range : 10*3/?L. The reference range was not used to interpret this result as normal/abnormal . GRAN MAT (NEUT) % 66.3 % (test code = 770-8) IMM GRAN % (test code 0.20 % = 9197901426) LYMPH % (test code = 24.6 % 736-9) MONO % (test code = 7.2 % 5905-5) EOS % (test code = 0.9 % 713-8) BASO % (test code = 0.8 % 706-2) GRAN MAT x10^3(ANC) 4.25 10*3/uL 1.88-7.09 (test code = 3936194685) IMM GRAN x10^3 (test 0-0.06 code = 1149876300) LYMPH x10^3 (test code 1.58 10*3/uL 1.32-3.29 = 731-0) MONO x10^3 (test code 0.46 10*3/uL 0.33-0.92 = 742-7) EOS x10^3 (test code = 0.06 10*3/uL 0.03-0.39 711-2) BASO x10^3 (test code 0.05 10*3/uL 0.01-0.07 = 704-7) Lab Interpretation Abnormal (test code = 61200-2) [facility] ([id number][facility]2022-[facility]-27 19:23:49 Test Item Value Reference Range Interpretation Comments NA (test code = 142 mmol/L 135-145 9875864353) K (test code = 3.7 mmol/L 3.5-5 1608907991) CL (test code = 104 mmol/L 98-108 4290963420) CO2 TOTAL (test code 30 mmol/L 23-31 = 9156776608) AGAP (test code = 2-16 5717758581) BUN (test code = 9 mg/dL 7-23 5470147165) GLUCOSE (test code = 109 mg/dL 70-110 6494296202) CREATININE (test code 0.66 mg/dL 0.5-1.04 = 3725433861) TOTAL BILI (test code 0.3 mg/dL 0.1-1.1 = 2764367686) CALCIUM (test code = 9.3 mg/dL 8.6-10.6 9080004895) T PROTEIN (test code 7.2 g/dL 6.3-8.2 = 2503817070) ALBUMIN (test code = 4.1 g/dL 3.5-5 2431017864) ALK PHOS (test code = 78 U/L 34-122 6684540873) ALTv (test code = 25 U/L 5-35 1742-6) AST(SGOT) (test code 27 U/L 13-40 = 6312235348) eGFR (test code = mL/min/1.73m2 3200093281) VERITO (test code = VERITO) Association of [...] or urine or abnormalities in imaging tests). [facility] [id number] 19:01:00 Test Item Value Reference Range Interpretation Comments POCT PREG (test code = 1605) negative On board controls acceptable with present C Line (test code = 3574) POCT PREG LOT # (test code = 3575) [id number] POCT PREG TEST DATE (test 06/11/23 code = 3576) Lab Interpretation (test code = Normal 18024-8) [facility] (87487)2022-01-25 15:09:17 Test Item Value Reference Range Interpretation Comments NA (test code = 140 mmol/L 135-145 9897112940) K (test code = 3.7 mmol/L 3.5-5.0 0171949871) CL (test code = 107 mmol/L 98-108 0225364657) CO2 TOTAL (test code = 28 mmol/L - 4042922711) AGAP (test code = 2-16 3776441958) BUN (test code = 10 mg/dL 7-23 6291744650) GLUCOSE (test code = 115 mg/dL 70-110 H 8105920047) CREATININE (test code = 0.67 mg/dL 0.50-1.04 3911965320) TOTAL BILI (test code = 0.6 mg/dL 0.1-1.4 7683998248) CALCIUM (test code = 9.2 mg/dL 8.6-10.6 7151330289) T PROTEIN (test code = 7.2 g/dL 6.3-8.2 5670917209) ALBUMIN (test code = 4.1 g/dL 3.5-5.0 4696812206) ALK PHOS (test code = 72 U/L 34-122 0811453103) ALTv (test code = 18 U/L 5-35 1742-6) AST(SGOT) (test code = 29 U/L 13-40 1142688100) eGFR (test code = mL/min/1.73m2 2339491743) VERITO (test code = VERITO) Association of [...] tests). Lab Interpretation Abnormal (test code = 36644-7) [facility] Test Item Value Reference Range Interpretation Comments MAGNESIUM (test code = 6876750012) 1.7 mg/dL 1.7-2.4 Lab Interpretation (test code = Normal 67135-8) [facility] OWBLFA5611[facility]47-67 15:08:57 Test Item Value Reference Range Interpretation Comments CK (test code = 9029926482) 215 U/L 33-194 H Lab Interpretation (test code = Abnormal 80290-6) [facility] ALYK2064-54-22 14:52:13 Test Item Value Reference Range Interpretation Comments WBC (test code = See_Comment [Automated 2184-2) message] The sy stem which generated this result transmitted reference range : 4.30 - 11.10 10*3/?L. The reference range was not used to interpret this result as normal/abnormal . RBC (test code = See_Comment [Automated 716-6) message] The sy stem which generated this [...] RDW-SD (test code = 40.2 fL 39.0-49.9 60546-4) RDW-CV (test code = 14.1 % 12.0-15.5 788-0) PLT (test code = See_Comment [Automated 777-3) message] The sy stem which generated this result transmitted reference range : 166 - 358 10*3/ ?L. The reference r ryann was not used to interpret this result as normal/abnormal . MPV (test code = 10.1 fL 9.5-12.9 55740-5) NRBC/100 WBC (test See_Comment [Automat ed code = 7141309876) message] The system which generated this result transmitted reference range : 0.0 - 10.0 /100 WBCs. The refer ence range was not u sed to interpret th is result as normal/abnormal . NRBC x10^3 (test code <0.01 See_Comment [Auto mated = 9217708459) message] The s ystem which generated this result transmitted reference range : 10*3/?L. The reference range was not used to interpret this result as normal/abnormal . GRAN MAT (NEUT) % 70.4 % (test code = 770-8) IMM GRAN % (test code 0.30 % = 8994292202) LYMPH % (test code = 20.3 % 736-9) MONO % (test code = 6.9 % 5905-5) EOS % (test code = 1.5 % 713-8) BASO % (test code = 0.6 % 706-2) GRAN MAT x10^3(ANC) 5.01 10*3/uL 1.88-7.09 (test code = 1385592279) IMM GRAN x10^3 (test <0.03 0.00-0.06 code = 6067599797) LYMPH x10^3 (test code 1.44 10*3/uL 1.32-3.29 = 731-0) MONO x10^3 (test code 0.49 10*3/uL 0.33-0.92 = 742-7) EOS x10^3 (test code = 0.11 10*3/uL 0.03-0.39 711-2) BASO x10^3 (test code 0.04 10*3/uL 0.01-0.07 = 704-7) Lab Interpretation Abnormal (test code = 98184-9) [facility]2022-04-27 06:18:00 Test Item Value Reference Range Interpretation Comments WBC (test code = WBC) 10.8 3.7-10.4 [place] [address]-04-27 06:18:00 Test Item Value Reference Range Interpretation Comments RBC (test code = RBC) 4.83 4.20-5.40 [place] 217202-04-27 06:18:00 Test Item Value Reference Range Interpretation Comments Hgb (test code = Hgb) 11.9 12.0-16.0 [place] 217202-04-27 06:18:00 Test Item Value Reference Range Interpretation Comments Hct (test code = Hct) 36.9 36.0-48.0 [place] [address]-04-27 06:18:00 Test Item Value Reference Range Interpretation Comments MCV (test code = MCV) 76.4 80.0-98.0 [place] 217202-04-27 06:18:00 Test Item Value Reference Range Interpretation Comments MCH (test code = MCH) 24.6 pg 27.0-31.0 [place] 217202-04-27 06:18:00 Test Item Value Reference Range Interpretation Comments MCHC (test code = MCHC) 32.3 32.0-36.0 [place] [address]-04-27 06:18:00 Test Item Value Reference Range Interpretation Comments RDW (test code = RDW) 14.0 11.5-14.5 [place] 217202-04-27 06:18:00 Test Item Value Reference Range Interpretation Comments Platelet (test code = Platelet) 240 133-450 [place] 217202-04-27 06:18:00 Test Item Value Reference Range Interpretation Comments MPV (test code = MPV) 8.0 7.4-10.4 [place] 217202-04-27 06:18:00 Test Item Value Reference Range Interpretation Comments RBC Morph (test code = Normal (12/06/21 1:18 RBC Morph) AM) [place] 217202-04-27 06:18:00 Test Item Value Reference Range Interpretation Comments Plt Morph (test code = Normal (12/06/21 1:18 Plt Morph) AM) [place] [address]-04-27 06:18:00 Test Item Value Reference Range Interpretation Comments Segs (test code = Segs) 89.2 45.0-75.0 [place] [address]-04-27 06:18:00 Test Item Value Reference Range Interpretation Comments Lymphocytes (test code = Lymphocytes) 6.3 20.0-40.0 [place] [address]-04-27 06:18:00 Test Item Value Reference Range Interpretation Comments Monocytes (test code = Monocytes) 4.3 2.0-12.0 [place] [address]-04-27 06:18:00 Test Item Value Reference Range Interpretation Comments Basophils (test code = 0.2 See_Comment [Aut omated message] The Basophils) system which ge nerated this result tra nsmitted reference range : <=1.0. The reference r ryann was not used to int erpret this result as normal/abnormal . [facility]jt[facility]btZZSXCXPENN7997-[facility]-38 06:18:00 Test Item Value Reference Range Interpretation Comments Neutrophils # (test code = Neutrophils 9.6 1.5-8.1 #) [place] 217202-04-27 06:18:00 Test Item Value Reference Range Interpretation Comments Lymphocytes # (test code = Lymphocytes 0.7 1.0-5.5 #) [place] [address]-04-27 06:18:00 Test Item Value Reference Range Interpretation Comments Monocytes # (test code 0.5 See_Comment [Aut omated message] The = Monocytes #) system which generated this result tra nsmitted reference range : <=0.8. The reference r ryann was not used to int erpret this result as normal/abnormal . [place] [address]-04-27 06:18:00 Test Item Value Reference Range Interpretation Comments Microcyte (test code = 1+ *ABN*(12/06/21 Microcyte) 1:18 AM) [facility]DnymuqiYDVUXRHHEL8412-61-16 06:18:00 Test Item Value Reference Range Interpretation Comments WBC (test code = WBC) 10.8 3.7-10.4 [facility] HospitalRqhykquNTMKLBNNWY7708-46-00 06:18:00 Test Item Value Reference Range Interpretation Comments RBC (test code = RBC) 4.83 4.20-5.40 [place] 217202-04-27 06:18:00 Test Item Value Reference Range Interpretation Comments Hgb (test code = Hgb) 11.9 12.0-16.0 [place] 217202-04-27 06:18:00 Test Item Value Reference Range Interpretation Comments Hct (test code = Hct) 36.9 36.0-48.0 [facility] HospitalEgeabftBCCCSLYJRI2057-83-77 06:18:00 Test Item Value Reference Range Interpretation Comments MCV (test code = MCV) 76.4 80.0-98.0 [place] 217202-04-27 06:18:00 Test Item Value Reference Range Interpretation Comments MCH (test code = MCH) 24.6 pg 27.0-31.0 [facility] HospitalIsbaianKUQBEACZZH1017-45-12 06:18:00 Test Item Value Reference Range Interpretation Comments MCHC (test code = MCHC) 32.3 32.0-36.0 [facility] HospitalBbsovyxYOQEUACHBX1131-90-02 06:18:00 Test Item Value Reference Range Interpretation Comments RDW (test code = RDW) 14.0 11.5-14.5 [place] 217202-04-27 06:18:00 Test Item Value Reference Range Interpretation Comments Platelet (test code = Platelet) 240 133-450 [facility] HospitalOcuhiscZQGLVEXQDV6578-32-19 06:18:00 Test Item Value Reference Range Interpretation Comments MPV (test code = MPV) 8.0 7.4-10.4 [place] 217202-04-27 06:18:00 Test Item Value Reference Range Interpretation Comments RBC Morph (test code = Normal (12/06/21 1:18 RBC Morph) AM) [facility] HospitalLbjberrWQOZGSANYU2174-93-44 06:18:00 Test Item Value Reference Range Interpretation Comments Plt Morph (test code = Normal (4/27/22 1:18 Plt Morph) AM) [facility]UdmnfnpQZGDRKKULB7065-05-89 06:18:00 Test Item Value Reference Range Interpretation Comments Segs (test code = Segs) 89.2 45.0-75.0 [facility] HospitalLewmpggCNPUVDCEYC6313-10-82 06:18:00 Test Item Value Reference Range Interpretation Comments Lymphocytes (test code = Lymphocytes) 6.3 20.0-40.0 [facility] HospitalArnbsyaJJHJDNWMOM5155-09-22 06:18:00 Test Item Value Reference Range Interpretation Comments Monocytes (test code = Monocytes) 4.3 2.0-12.0 [facility] HospitalKfzedeqFDWMPGAVKN9501-99-31 06:18:00 Test Item Value Reference Range Interpretation Comments Basophils (test code = 0.2 See_Comment [Aut omated message] The Basophils) system which ge nerated this result tra nsmitted reference range : <=1.0. The reference r ryann was not used to int erpret this result as normal/abnormal . [facility] HospitalVfsvenzGIWRUFEOMX4139-24-89 06:18:00 Test Item Value Reference Range Interpretation Comments Neutrophils # (test code = Neutrophils 9.6 1.5-8.1 #) [facility] HospitalPmiqbepCBAPLFHQER6683-25-60 06:18:00 Test Item Value Reference Range Interpretation Comments Lymphocytes # (test code = Lymphocytes 0.7 1.0-5.5 #) [facility] HospitalChqmdlgVJGVWBVOSH5641-15-11 06:18:00 Test Item Value Reference Range Interpretation Comments Monocytes # (test code 0.5 See_Comment [Aut omated message] The = Monocytes #) system which generated this result tra nsmitted reference range : <=0.8. The reference r ryann was not used to int erpret this result as normal/abnormal . [facility] HospitalSbcopaoENZBFVNEWX1793-01-91 06:18:00 Test Item Value Reference Range Interpretation Comments Microcyte (test code = 1+ *ABN*(12/06/21 Microcyte) 1:18 AM) [facility] FBYOXUQ1822-81-84 13:19:00 Test Item Value Reference Range Interpretation Comments ABO/Rh (test code = ABO/Rh) O POS [facility] [employer] MSWUSLN1023-64-76 13:19:00 Test Item Value Reference Range Interpretation Comments Antibody Scrn (test Negative (12/05/21 8:19 code = Antibody Scrn) AM) [place] 328632-04-26 13:19:00 Test Item Value Reference Range Interpretation Comments Glucose Lvl (test code = Glucose Lvl) 88 70-99 [place] [address]-04-26 13:19:00 Test Item Value Reference Range Interpretation Comments BUN (test code = BUN) 11 7-22 [place] [address]-04-26 13:19:00 Test Item Value Reference Range Interpretation Comments Creatinine Lvl (test code = Creatinine 0.81 0.50-1.40 Lvl) [place] 328632-04-26 13:19:00 Test Item Value Reference Range Interpretation Comments Sodium Lvl (test code = Sodium Lvl) 136 135-145 [place] 328632-04-26 13:19:00 Test Item Value Reference Range Interpretation Comments Potassium Lvl (test code = Potassium 3.5 3.5-5.1 Lvl) [place] 328632-04-26 13:19:00 Test Item Value Reference Range Interpretation Comments Chloride Lvl (test code = Chloride Lvl) 105 95-109 [place] 328632-04-26 13:19:00 Test Item Value Reference Range Interpretation Comments CO2 (test code = CO2) 28 24-32 [place] 328632-04-26 13:19:00 Test Item Value Reference Range Interpretation Comments Calcium Lvl (test code = Calcium Lvl) 8.9 8.5-10.5 [place] 328632-04-26 13:19:00 Test Item Value Reference Range Interpretation Comments AGAP (test code = AGAP) 6.5 10.0-20.0 [place] 328632-04-26 13:19:00 Test Item Value Reference Range Interpretation Comments eGFR (test code = eGFR) 100 [place] [address]-04-26 13:19:00 Test Item Value Reference Range Interpretation Comments Segs (test code = Segs) 57.3 45.0-75.0 [place] [address]-04-26 13:19:00 Test Item Value Reference Range Interpretation Comments Lymphocytes (test code = Lymphocytes) 31.8 20.0-40.0 [place] 217202-04-26 13:19:00 Test Item Value Reference Range Interpretation Comments Monocytes (test code = Monocytes) 6.9 2.0-12.0 [place] [address]-04-26 13:19:00 Test Item Value Reference Range Interpretation Comments Eosinophils (test code = 2.8 See_Comment [A utomated message] The Eosinophils) system which ge nerated this result tra nsmitted reference range : <=4.0. The reference r ryann was not used to int erpret this result as normal/abnormal . [place] [address]-04-26 13:19:00 Test Item Value Reference Range Interpretation Comments Basophils (test code = 1.2 See_Comment [Aut omated message] The Basophils) system which ge nerated this result tra nsmitted reference range : <=1.0. The reference r ryann was not used to int erpret this result as normal/abnormal . [address]04-26 13:19:00 Test Item Value Reference Range Interpretation Comments Neutrophils # (test code = Neutrophils 2.7 1.5-8.1 #) [address]04-26 13:19:00 Test Item Value Reference Range Interpretation Comments Lymphocytes # (test code = Lymphocytes 1.5 1.0-5.5 #) [place] [address]-04-26 13:19:00 Test Item Value Reference Range Interpretation Comments Monocytes # (test code 0.3 See_Comment [Aut omated message] The = Monocytes #) system which generated this result tra nsmitted reference range : <=0.8. The reference r ryann was not used to int erpret this result as normal/abnormal . [place] [address]-04-26 13:19:00 Test Item Value Reference Range Interpretation Comments Eosinophils # (test code 0.1 See_Comment [A utomated message] The = Eosinophils #) system whic h generated this result tra nsmitted reference range : <=0.5. The reference r ryann was not used to int erpret this result as normal/abnormal . [place] [address]-04-26 13:19:00 Test Item Value Reference Range Interpretation Comments Basophils # (test code 0.1 See_Comment [Aut omated message] The = Basophils #) system which generated this result tra nsmitted reference range : <=0.2. The reference r ryann was not used to int erpret this result as normal/abnormal . [facility] HospitalOlbkgffADZLUOLBTS9622-65-99 13:19:00 Test Item Value Reference Range Interpretation Comments Microcyte (test code = 1+ *ABN*(12/05/21 Microcyte) 8:19 AM) [facility] HospitalOeykmqvUEQCAVGVQP5177-65-28 13:19:00 Test Item Value Reference Range Interpretation Comments WBC (test code = WBC) 4.7 3.7-10.4 [facility] HospitalCftjivnUUTNVQZETG2223-01-37 13:19:00 Test Item Value Reference Range Interpretation Comments RBC (test code = RBC) 4.99 4.20-5.40 [facility]qaTBEFHEYMKC3017-36-44 13:19:00 Test Item Value Reference Range Interpretation Comments Hgb (test code = Hgb) 12.5 12.0-16.0 [facility] HospitalWmgaenoJXNLFLFOZP0430-94-44 13:19:00 Test Item Value Reference Range Interpretation Comments Hct (test code = Hct) 38.6 36.0-48.0 [facility] HospitalSvdmolcERXVKSHEPT4046-00-65 13:19:00 Test Item Value Reference Range Interpretation Comments MCV (test code = MCV) 77.4 80.0-98.0 [facility] HealthcareMwwxtpdHKBSXZUBKF9003-79-72 13:19:00 Test Item Value Reference Range Interpretation Comments MCH (test code = MCH) 25.0 pg 27.0-31.0 [facility] HospitalWqxahlwFIJUPXMTIS7825-16-81 13:19:00 Test Item Value Reference Range Interpretation Comments MCHC (test code = MCHC) 32.2 32.0-36.0 [facility] HospitalFmycumoVVGXERXRUP0437-61-53 13:19:00 Test Item Value Reference Range Interpretation Comments RDW (test code = RDW) 14.0 11.5-14.5 [facility] HospitalZermvpzSZKBDHNZKO9040-01-98 13:19:00 Test Item Value Reference Range Interpretation Comments Platelet (test code = Platelet) 240 133-450 [facility] HospitalPtcslqnNUCPRIWEAZ9641-13-48 13:19:00 Test Item Value Reference Range Interpretation Comments MPV (test code = MPV) 8.1 7.4-10.4 [facility] FNXPYOI8724-73-98 13:19:00 Test Item Value Reference Range Interpretation Comments ABO/Rh (test code = ABO/Rh) O POS [facility] VTRVTKV9329-48-53 13:19:00 Test Item Value Reference Range Interpretation Comments Antibody Scrn (test Negative (12/05/21 8:19 code = Antibody Scrn) AM) [facility]2022-04-26 13:19:00 Test Item Value Reference Range Interpretation Comments Glucose Lvl (test code = Glucose Lvl) 88 70-99 [facility]2022-04-26 13:19:00 Test Item Value Reference Range Interpretation Comments BUN (test code = BUN) 11 - [facility]2022-04-26 13:19:00 Test Item Value Reference Range Interpretation Comments Creatinine Lvl (test code = Creatinine 0.81 0.50-1.40 Lvl) [facility]2022-04-26 13:19:00 Test Item Value Reference Range Interpretation Comments Sodium Lvl (test code = Sodium Lvl) 136 135-145 [facility]2022-04-26 13:19:00 Test Item Value Reference Range Interpretation Comments Potassium Lvl (test code = Potassium 3.5 3.5-5.1 Lvl) [facility]2022-04-26 13:19:00 Test Item Value Reference Range Interpretation Comments Chloride Lvl (test code = Chloride Lvl) 105 95-109 [facility]2022-04-26 13:19:00 Test Item Value Reference Range Interpretation Comments CO2 (test code = CO2) 28 24-32 [facility]2022-04-26 13:19:00 Test Item Value Reference Range Interpretation Comments Calcium Lvl (test code = Calcium Lvl) 8.9 8.5-10.5 [facility]2022-04-26 13:19:00 Test Item Value Reference Range Interpretation Comments AGAP (test code = AGAP) 6.5 10.0-20.0 [place] 328632-04-26 13:19:00 Test Item Value Reference Range Interpretation Comments eGFR (test code = eGFR) 100 [facility] HospitalTgoewinCDVJNQUTWJ9659-88-40 13:19:00 Test Item Value Reference Range Interpretation Comments Segs (test code = Segs) 57.3 45.0-75.0 [facility] HospitalDbxsnsfNMXIUQCOPL5913-20-61 13:19:00 Test Item Value Reference Range Interpretation Comments Lymphocytes (test code = Lymphocytes) 31.8 20.0-40.0 [place] 217202-04-26 13:19:00 Test Item Value Reference Range Interpretation Comments Monocytes (test code = Monocytes) 6.9 2.0-12.0 [place] 217202-04-26 13:19:00 Test Item Value Reference Range Interpretation Comments Eosinophils (test code = 2.8 See_Comment [A utomated message] The Eosinophils) system which ge nerated this result tra nsmitted reference range : <=4.0. The reference r ryann was not used to int erpret this result as normal/abnormal . [place] [address]-04-26 13:19:00 Test Item Value Reference Range Interpretation Comments Basophils (test code = 1.2 See_Comment [Aut omated message] The Basophils) system which ge nerated this result tra nsmitted reference range : <=1.0. The reference r ryann was not used to int erpret this result as normal/abnormal . [place] 217202-04-26 13:19:00 Test Item Value Reference Range Interpretation Comments Neutrophils # (test code = Neutrophils 2.7 1.5-8.1 #) [place] [address]-04-26 13:19:00 Test Item Value Reference Range Interpretation Comments Lymphocytes # (test code = Lymphocytes 1.5 1.0-5.5 #) [place] [address]-04-26 13:19:00 Test Item Value Reference Range Interpretation Comments Monocytes # (test code 0.3 See_Comment [Aut omated message] The = Monocytes #) system which generated this result tra nsmitted reference range : <=0.8. The reference r ryann was not used to int erpret this result as normal/abnormal . [place] [address]-04-26 13:19:00 Test Item Value Reference Range Interpretation Comments Eosinophils # (test code 0.1 See_Comment [A utomated message] The = Eosinophils #) system whic h generated this result tra nsmitted reference range : <=0.5. The reference r ryann was not used to int erpret this result as normal/abnormal . [place] 217202-04-26 13:19:00 Test Item Value Reference Range Interpretation Comments Basophils # (test code 0.1 See_Comment [Aut omated message] The = Basophils #) system which generated this result tra nsmitted reference range : <=0.2. The reference r ryann was not used to int erpret this result as normal/abnormal . [facility]EhcxlfcEKFMUGLIGR1993 13:19:00 Test Item Value Reference Range Interpretation Comments Microcyte (test code = 1+ *ABN*(12/05/21 Microcyte) 8:19 AM) [facility] HospitalIyrzvjuVBWTOKZQOR8960-07-75 13:19:00 Test Item Value Reference Range Interpretation Comments WBC (test code = WBC) 4.7 3.7-10.4 [facility] HospitalFnyqvgkZSYQVZQCOR8935-16-06 13:19:00 Test Item Value Reference Range Interpretation Comments RBC (test code = RBC) 4.99 4.20-5.40 [facility] HospitalNtiffmzJJXBJCGGHG6539-75-82 13:19:00 Test Item Value Reference Range Interpretation Comments Hgb (test code = Hgb) 12.5 12.0-16.0 [facility] HospitalPxtyokbBRAJCKLSAX5081-38-96 13:19:00 Test Item Value Reference Range Interpretation Comments Hct (test code = Hct) 38.6 36.0-48.0 [facility] HospitalSkvyapjEEIAFPURHG5702-30-71 13:19:00 Test Item Value Reference Range Interpretation Comments MCV (test code = MCV) 77.4 80.0-98.0 [facility] HospitalKxfkmaoNOSPQCZCKD1842-30-73 13:19:00 Test Item Value Reference Range Interpretation Comments MCH (test code = MCH) 25.0 pg 27.0-31.0 [facility] HospitalBtcuakaSYMPFQNMEO9468-91-02 13:19:00 Test Item Value Reference Range Interpretation Comments MCHC (test code = MCHC) 32.2 32.0-36.0 [facility] HospitalWlwzfmjPZCQNKNLAZ2662-05-77 13:19:00 Test Item Value Reference Range Interpretation Comments RDW (test code = RDW) 14.0 11.5-14.5 [facility] HospitalCsbuqkjFRCQJVSOSK3889-09-75 13:19:00 Test Item Value Reference Range Interpretation Comments Platelet (test code = Platelet) 240 133-450 [facility] HospitalUsaifeqFHZVPKNCPX8763-66-22 13:19:00 Test Item Value Reference Range Interpretation Comments MPV (test code = MPV) 8.1 7.4-10.4 [facility], SPINE, CERVICAL, WO CNIHDPWP6558-36-59 00:15:00Unlisted Reason for Exam - Click Yes and Enter Reason Below->No [facility]: RUFINO CALLAHAN : 1995 Sex: [...] Verified Date/Time: 11/06/2021 00:15:51 CT, BRAIN, WITHOUT NFGJYECT2389-76-99 00:13:00Unlisted Reason for Exam - Click Yes and Enter Reason Below->No [facility] 1995 Sex: FFINAL REPORT [...] Kam Arndt MDReport Verified Date/Time: 11/06/2021 00:13:35 [facility] [place], quantitative, omtwoagcb9732-98-31 23:31:28 Test Item Value Reference Range Interpretation Comments hCG Quant (test code <1 See_Comment [Autom ated = 78987-4) message] The system which generated this result [...] 10,000-100,000 6-8 Weeks 15,000-200,000 2-3 Months 10,000-100,000 Community Support Specialist ID - DB Lab Interpretation Normal (test code = 47815-5) [facility], quantitative, nqbivyizh9275-57-74 23:31:28 Test Item Value Reference Range Interpretation Comments hCG Quant (test code <1 See_Comment [Autom ated = 08306-2) message] The system which generated this result [...] 10,000-100,000 6-8 Weeks 15,000-200,000 2-3 Months 10,000-100,000 Community Support Specialist ID - DB Lab Interpretation Normal (test code = 64698-7) [facility], QUANTITATIVE, ZURHKLOKX9889-36-49 23:31:28 Test Item Value Reference Range Interpretation Comments GONADOTROPIN, CHORIONIC (HCG) QUANT < mIU/mL 0-10 (BEAKER) (test code = 649) Non- Females: <10 mIU/mL Females: Gestation Age Reference Range(mIU/mL) 0.2-1 Week 5-50 1-2 Weeks 50-500 2-3 Weeks 100-5,000 3-4 Weeks 500-10,000 4-5 Weeks 1,000-50,000 5-6 Weeks 10,000-100,000 6-8 Weeks 15,000- 200,000 2-3 Months 10,000-100,000 Community Support Specialist ID - DBHigh Sens Trop I ([facility]/[place] Only)2021-11-05 23:11:39 Test Item Value Reference Range Interpretation Comments Troponin I HS (test <4 See_Comment [Automa aleks code = 26979-5) message] The system which generated this result transmitted reference range : <=17 pg/ml. The reference range was not used to interpret this result as normal/abnormal . VERITO (test code = Community Support Specialist ID - VERITO) DBThe PAINTER PLATE STAT High Sensitivity Troponin-I results should be used in conjunction with other diagnostic information such as ECG, clinical observations and information, and patient symptoms to aid in the diagnosis of PA. Lab Interpretation Normal (test code = 86533-3) [facility] [place] (B[facility]/[place] Only)2021-11-05 23:11:39 Test Item Value Reference Range Interpretation Comments Troponin I HS (test <4 See_Comment [Automa aleks code = 87494-5) message] The system which generated this result transmitted reference range : <=17 pg/ml. The reference range was not used to interpret this result as normal/abnormal . VERITO (test code = Community Support Specialist ID - VERITO) DBThe PAINTER PLATE STAT High Sensitivity Troponin-I results should be used in conjunction with other diagnostic information such as ECG, clinical observations and information, and patient symptoms to aid in the diagnosis of PA. Lab Interpretation Normal (test code = 98750-5) [facility]ENSITIVITY TROPONIN [id number] 23:11:39 Test Item Value Reference Range Interpretation Comments HIGH SENSITIVITY < pg/ml See_Comment [Automated message] TROPONIN I (test code = The system which [id number]) generated this result transmitted ref erence range: <=17. Th e reference range was not used to interpr et this result as normal/abnormal . Community Support Specialist ID - DBThe PAINTER PLATE STAT High Sensitivity Troponin-I results should be used in conjunctionwith other diagnostic information such as ECG, clinical observations and information, and patient symptoms to aid in the diagnosis of PA.Comprehensive metabolic [id number] 23:05:38 Test Item Value Reference Range Interpretation Comments Protein, Total (test 7.7 See_Comment [Autom ated code = 2885-2) message] The system which generated this result transmit aleks reference range : 6.0 - 8.3 gm/dL . The reference range was not u sed to interpret th is result as normal/abnormal . Albumin (test code = 4.2 g/dL 3.5-5.0 80406-6) Alkaline Phosphatase 80 U/L 40-150 (test code = 6768-6) Total Bilirubin (test 0.4 mg/dL 0.2-1.2 code = 1975-2) Sodium (test code = 138 meq/L 167-645 2797-2) Potassium (test code 3.4 meq/L 3.5-5.1 L = 2823-3) Chloride (test code = 102 meq/L 98-107 5-0) CO2 (test code = 26 meq/L 2028-04) BUN (test code = 11 mg/dL 03-01 3094-0) Creatinine (test code 0.78 mg/dL 0.57-1.25 = 2160-0) Glucose (test code = 100 mg/dL 70-105 2345-7) Calcium (test code = 9.0 mg/dL 8.4-10.2 42715-4) AST (test code = 22 U/L 5-34 1920-8) ALT (test code = 25 U/L 6-55 1742-6) EGFR (test code = 107 mL/min/1.[place] [address]-2) NOT ACCURATE CREATININE CLEARANCE IN PREDICTING GLOMERULAR FILTRATION RATE . ESTIMATED GFR I S NOT APPLICABLE FOR DIALYSIS PATIEN TS. VERITO (test code = VERITO) Community Support Specialist ID - DB Lab Interpretation Abnormal (test code = 99214-9) [facility] [place] AngelesComprehensive metabolic [id number] 23:05:38 Test Item Value Reference Range Interpretation Comments Protein, Total (test 7.7 See_Comment [Autom ated code = 2885-2) message] The system which generated this result transmit aleks reference range : 6.0 - 8.3 gm/dL . The reference range was not u sed to interpret th is result as normal/abnormal . Albumin (test code = 4.2 g/dL 3.5-5.0 64272-5) Alkaline Phosphatase 80 U/L 40-150 (test code = 6768-6) Total Bilirubin (test 0.4 mg/dL 0.2-1.2 code = 1974-2) Sodium (test code = 138 meq/L 185-775 1296-2) Potassium (test code 3.4 meq/L 3.5-5.1 L = 2823-3) Chloride (test code = 102 meq/L 98-107 5-0) CO2 (test code = 26 meq/L 2028-04) BUN (test code = 11 mg/dL 03-01 3094-0) Creatinine (test code 0.78 mg/dL 0.57-1.25 = 2160-0) Glucose (test code = 100 mg/dL 70-105 2345-7) Calcium (test code = 9.0 mg/dL 8.4-10.2 23250-6) AST (test code = 22 U/L 5-34 1920-8) ALT (test code = 25 U/L 6-55 1742-6) EGFR (test code = 107 mL/min/1.[place] [address]-0) NOT ACCURATE CREATININE CLEARANCE IN PREDICTING GLOMERULAR FILTRATION RATE . ESTIMATED GFR I S NOT APPLICABLE FOR DIALYSIS PATIEN TS. SELLERS (test code = VERITO) Community Support Specialist ID - DB Lab Interpretation Abnormal (test code = 54921-2) [facility] [place] AngelesCOMPREHENSIVE METABOLIC [id number] 23:05:38 Test Item Value Reference Range Interpretation [...] S NOT APPLICABLE FOR DIALYSIS PATIEN TS. Community Support Specialist ID - DBLactic acid, efppgp3794-10-64 22:55:53 Test Item Value Reference Range Interpretation Comments Lactate, Venous (test 0.91 mmol/L 0.50-2.20 Specim en code = 2872) slightly hemolyzed VERITO (test code = VERITO) Community Support Specialist ID - DBOperator ID - DB Lab Interpretation Normal (test code = 82544-2) [facility] [place] AngelesLactic acid, [id number] 22:55:53 Test Item Value Reference Range Interpretation Comments Lactate, Venous (test 0.91 mmol/L 0.50-2.20 Specim en code = 2872) slightly hemolyzed VERITO (test code = VERITO) Community Support Specialist ID - DBOperator ID - DB Lab Interpretation Normal (test code = 90009-5) [facility] [place] AngelesLACTIC ACID, [id number] 22:55:53 Test Item Value Reference Range Interpretation Comments LACTATE BLOOD VENOUS 0.91 mmol/L 0.50-2.20 Specime n slightly (2) (BEAKER) (test hemolyzed code = 2872) Community Support Specialist ID - DBOperator ID - DBCBC with platelet count + automated diff 2021-11-05 22:47:54 Test Item Value Reference Range Interpretation Comments WBC (test code = 6690-2) 6.8 See_Comment [A utomated message] The system [employer] generated this result transmitted ref erence range: 3.5 - 10 .5 K/L. The refe rence range was not u sed to interpret this result as normal/abnor mal. RBC (test code = 789-8) 4.86 See_Comment [Au tomated message] The system [employer] generated this result transmitted ref erence range: 3.93 - 5 .22 M/L. The refe rence range was not u sed to interpret this result as normal/abnor mal. MCHC (test code = 786-4) 30.1 See_Comment L [A utomated message] The system [employer] generated this result transmitted ref erence range: [...] See_Comment [Aut omated message] 777-3) The system [employer] generated this result transmitted ref erence range: 150 - 45 0 K/CU MM. The referen ce range was not u sed to interpret this result as normal/abnor mal. MPV (test code = 9.4 fL 9.4-12.3 31288-8) nRBC (test code = 413) 0 See_Comment [Aut omated message] The system [employer] generated this result transmitted ref erence range: [...] See_Comment [Aut omated message] 670) The system [employer] generated this result transmitted ref erence range: 1.56 - 6 .13 K/L. The refe rence range was not u sed to interpret this result as normal/abnor mal. # Lymphs (test code = 1.85 See_Comment [Auto mated message] 414) The system [employer] generated this result transmitted ref erence range: 1.18 - 3 .74 K/L. The refe rence range was not u sed to interpret this result as normal/abnor mal. # Monos (test code = 0.74 See_Comment H [Autom ated message] 415) The system [employer] generated this result transmitted ref erence range: 0.24 - 0 .36 K/L. The refe rence range was not u sed to interpret this result as normal/abnor mal. # Eos (test code = 416) 0.08 See_Comment [Au tomated message] The system [employer] generated this result transmitted ref erence range: 0.04 - 0 .36 K/L. The refe rence range was not u sed to interpret this result as normal/abnor mal. # Baso (test code = 417) 0.04 See_Comment [A utomated message] The system [employer] generated this result transmitted ref erence range: 0.01 - 0 .08 K/L. The refe rence range was not u sed to interpret this result as normal/abnor mal. Immature 0 % 0-1 Granulocytes-Relative (test code = 2801) Lab Interpretation (test Abnormal code = 02272-8) [facility] with platelet count + automated [id number] 22:47:54 Test Item Value Reference Range Interpretation Comments WBC (test code = 6690-2) 6.8 See_Comment [A utomated message] The system [employer] generated this result transmitted ref erence range: 3.5 - 10 .5 K/L. The refe rence range was not u sed to interpret this result as normal/abnor mal. RBC (test code = 789-8) 4.86 See_Comment [Au tomated message] The system [employer] generated this result transmitted ref erence range: 3.93 - 5 .22 M/L. The refe rence range was not u sed to interpret this result as normal/abnor mal. MCHC (test code = 786-4) 30.1 See_Comment L [A utomated message] The system [employer] generated this result transmitted ref erence range: [...] See_Comment [Aut omated message] 777-3) The system [employer] generated this result transmitted ref erence range: 150 - 45 0 K/CU MM. The referen ce range was not u sed to interpret this result as normal/abnor mal. MPV (test code = 9.4 fL 9.4-12.3 72449-2) nRBC (test code = 413) 0 See_Comment [Aut omated message] The system [employer] generated this result transmitted ref erence range: [...] See_Comment [Aut omated message] 670) The system [employer] generated this result transmitted ref erence range: 1.56 - 6 .13 K/L. The refe rence range was not u sed to interpret this result as normal/abnor mal. # Lymphs (test code = 1.85 See_Comment [Auto mated message] 414) The system [employer] generated this result transmitted ref erence range: 1.18 - 3 .74 K/L. The refe rence range was not u sed to interpret this result as normal/abnor mal. # Monos (test code = 0.74 See_Comment H [Autom ated message] 415) The system [employer] generated this result transmitted ref erence range: 0.24 - 0 .36 K/L. The refe rence range was not u sed to interpret this result as normal/abnor mal. # Eos (test code = 416) 0.08 See_Comment [Au tomated message] The system [employer] generated this result transmitted ref erence range: 0.04 - 0 .36 K/L. The refe rence range was not u sed to interpret this result as normal/abnor mal. # Baso (test code = 417) 0.04 See_Comment [A utomated message] The system [employer] generated this result transmitted ref erence range: 0.01 - 0 .08 K/L. The refe rence range was not u sed to interpret this result as normal/abnor mal. Immature 0 % 0-1 Granulocytes-Relative (test code = 2801) Lab Interpretation (test Abnormal code = 66651-1) [facility] W/PLT COUNT & AUTO [id number] 22:47:54 Test Item Value Reference Range Interpretation [...] = No growth in 5 days 6463-4) [facility] [place] - [facility]ine (Left Venipuncture)2021-09-09 07:00:34 Test Item Value Reference Range Interpretation Comments Result (test code = No growth in 5 days 6463-4) [facility] [place] AngelesBLOOD [id number] 07:00:34 Test Item Value Reference Range Interpretation Comments CULTURE (BEAKER) (test No growth in 5 days code = 1095) BLOOD [id number] 07:00:34 Test Item Value Reference Range Interpretation Comments CULTURE (BEAKER) (test No growth in 5 days code = 1095) Anti-Nuclear Antibody (ROSI)2021-09-05 13:55:57 Test Item Value Reference Range Interpretation Comments ROSI (test code = 20593-0) Negative Negative VERITO (test code = VERITO) Test performed by IFA method.Test performed by IFA method. Lab Interpretation (test Normal code = 91176-0) [facility] [place] Antibody (ROSI)2021-09-05 13:55:57 Test Item Value Reference Range Interpretation Comments ROSI (test code = 74755-1) Negative Negative VERITO (test code = VERITO) Test performed by IFA method.Test performed by IFA method. Lab Interpretation (test Normal code = 24220-1) [facility] [place]ANTI-NUCLEAR ANTIBODY (ROSI)2021-09-05 13:55:57 Test Item Value Reference Range Interpretation Comments ANTI-NUCLEAR ANTIBODY (ROSI) (BEAKER) Negative Negative (test code = 418) Test performed by IFA method.Test performed by IFA method.CBC W/PLT COUNT & AUTO [id number] 06:10:59 Test Item Value Reference Range Interpretation [...] (BEAKER) (test code = 2801) Basic Metabolic [id number] 06:02:03 Test Item Value Reference Range Interpretation Comments Sodium (test code = 139 meq/L 188-976 0795-2) Potassium (test code 3.6 meq/L 3.6-5.5 = 2823-3) Chloride (test code = 107 meq/L 98-106 H 5-0) CO2 (test code = 23 meq/L -2028-04) BUN (test code = 4 mg/dL 10-26 L 3094-0) Creatinine (test code 0.64 mg/dL 0.50-1.20 = 2160-0) Glucose (test code = 110 mg/dL 70-110 2345-7) Calcium (test code = 8.7 mg/dL 8.5-10.5 60587-8) EGFR (test code = 134 mL/min/1.[place] [address]-1) m NOT ACCURATE CREATININE CLEARANCE IN PREDICTING GLOMERULAR FILTRATION RATE . ESTIMATED GFR I S NOT APPLICABLE FOR DIALYSIS PATIENTS. VERITO (test code = VERITO) Community Support Specialist ID - LITOOperator ID - LITOOperator ID - LITOOperator ID - LITOOperator ID - LITOOperator ID - LITOOperator ID - LITOOperator ID - LITOOperator ID - LITOOperator ID - XIMENA Lab Interpretation Abnormal (test code = 90358-8) [facility] [place] AngelesBasi Metabolic [id number] 06:02:03 Test Item Value Reference Range Interpretation Comments Sodium (test code = 139 meq/L 583-603 8344-2) Potassium (test code 3.6 meq/L 3.6-5.5 = 2823-3) Chloride (test code = 107 meq/L 98-106 H 2075-0) CO2 (test code = 23 meq/L -2028-04) BUN (test code = 4 mg/dL 10-26 L 3094-0) Creatinine (test code 0.64 mg/dL 0.50-1.20 = 2160-0) Glucose (test code = 110 mg/dL 70-110 2345-7) Calcium (test code = 8.7 mg/dL 8.5-10.5 00926-2) EGFR (test code = 134 mL/min/1.[place] [address]-0) m NOT ACCURATE CREATININE CLEARANCE IN PREDICTING GLOMERULAR FILTRATION RATE . ESTIMATED GFR I S NOT APPLICABLE FOR DIALYSIS PATIENTS. VERITO (test code = VERITO) Community Support Specialist ID - LITOOperator ID - LITOOperator ID - LITOOperator ID - LITOOperator ID - LITOOperator ID - LITOOperator ID - LITOOperator ID - LITOOperator ID - LITOOperator ID - XIMENA Lab Interpretation Abnormal (test code = 24419-0) [facility] METABOLIC [id number] 06:02:03 Test Item Value Reference Range Interpretation [...] S NOT APPLICABLE FOR DIALYSIS PATIEN TS. Community Support Specialist ID - LITOOperator ID - LITOOperator ID - LITOOperator ID - LITOOperator ID - LITOOperator ID - LITOOperator ID - LITOOperator ID - LITOOperator ID - LITOOperator ID - [id number] 06:00:02 Test Item Value Reference Range Interpretation Comments Magnesium (test code = 1.9 mg/dL 1.5-3.0 06496-0) VERITO (test code = VERITO) Community Support Specialist ID - LITOOperator ID - LITOOperator ID - LITOOperator ID - XIMENA Lab Interpretation (test Normal code = 83131-3) [facility] [place] AngelesMagnesium2022-01-24 06:00:02 Test Item Value Reference Range Interpretation Comments Magnesium (test code = 1.9 mg/dL 1.5-3.0 66994-5) VERITO (test code = VERITO) Community Support Specialist ID - LITOOperator ID - LITOOperator ID - LITOOperator ID - XIMENA Lab Interpretation (test Normal code = 53236-3) [facility] Test Item Value Reference Range Interpretation Comments MAGNESIUM (BEAKER) (test code = 1.9 mg/dL 1.5-3.0 627) Community Support Specialist ID - LITOOperator ID - LITOOperator ID - LITOOperator ID - LITOC- Reactive [id number] 05:58:11 Test Item Value Reference Range Interpretation Comments CRP (test code = 676) 5.49 mg/dL 0.00-0.50 H VERITO (test code = VERITO) Community Support Specialist ID - XIMENA Lab Interpretation (test Abnormal code = 37282-3) [facility] [place] AngelesC-Reactive [id number] 05:58:11 Test Item Value Reference Range Interpretation Comments CRP (test code = 676) 5.49 mg/dL 0.00-0.50 H VERITO (test code = VERITO) Community Support Specialist ID - XIMENA Lab Interpretation (test Abnormal code = 93273-7) [facility] [place] AngelesC-REACTIVE [id number] 05:58:11 Test Item Value Reference Range Interpretation Comments C-REACTIVE PROTEIN (BEAKER) (test 5.49 mg/dL 0.00-0.50 H code = 676) Community Support Specialist ID - LITOCT, CTANGIO AVACQ9673-46-30 02:24:00Unlisted Reason for Exam - Click Yes and Enter Reason Below->No [facility] 1995 Sex: FFINAL REPORT EXAM: CT, [...] Not well-visualized bilaterally.Posterior Circulation:Right posterior cerebral artery (TEMPORARY ADMINISTRATIVE ASSISTANT): NormalLeft posterior cerebral artery (TEMPORARY ADMINISTRATIVE ASSISTANT): Normal Right vertebral artery (VA): NormalLeft vertebral artery (VA): NormalBasilar artery (BA):Normal Other: No aneurysm Dural Venous Sinuses: Normal IMPRESSION: 1. No acute intracranial abnormality.2. No hemodynamically significant stenosis or aneurysm. Signed: Nita Madsenevon Verified Date/Time: 09/04/2021 02:24:17 2D Echo W/Doppler(CW/PW/Color)2021-09-03 16:06:54Ejection [facility]ractionSLEH [facility](CW/PW/Color) 2021-09-03 16:06:54Ejection FractionSLEH ECHO HEARTLAB [facility]T [facility] & AUTO [id number] 06:12:06 Test Item Value Reference Range Interpretation [...] (BEAKER) (test code = 2801) BASIC METABOLIC [id number] 06:09:34 Test Item Value Reference Range Interpretation [...] S NOT APPLICABLE FOR DIALYSIS PATIEN TS. Community Support Specialist ID - LITOOperator ID - LITOOperator ID - LITOOperator ID - LITOOperator ID - LITOOperator ID - LITOOperator ID - LITOOperator ID - LITOOperator ID - LITOOperator ID - [id number] 06:04:12 Test Item Value Reference Range Interpretation Comments MAGNESIUM (BEAKER) (test code = 1.8 mg/dL 1.5-3.0 627) Community Support Specialist ID - LITOOperator ID - LITOOperator ID - LITOOperator ID - LITOTroponin [id number] 07:27:11 Test Item Value Reference Range Interpretation Comments Troponin I (test code = <0.03 0.00-0.15 94868-8) VERITO (test code = VERITO) Troponin I [...] failure, acidosis, acute neurological disease, and persistent tachyarrhythmia.Banner ID - DSENSON Lab Interpretation (test Normal code = 43394-3) [facility] [id number] 07:27:11 Test Item Value Reference Range Interpretation Comments Troponin I (test code = <0.03 0.00-0.15 88922-8) VERITO (test code = VERITO) Troponin I [...] failure, acidosis, acute neurological disease, and persistent tachyarrhythmia.Banner ID - DSENSON Lab Interpretation (test Normal code = 77531-6) [facility] [place] AngelesTROPONIN [id number] 07:27:11 Test Item Value Reference Range Interpretation [...] failure, acidosis, acute neurological disease, and persistent tachyarrhythmia.Community Support Specialist ID - DSENSONIron, TIBC, % sat. (without ferritin)2021-09-02 06:23:13 Test Item Value Reference Range Interpretation Comments Iron (test code = 2498-4) 16.0 ug/dL 45.0-170.0 L TIBC (test code = 2500-7) 330 ug/dL 250-550 Iron % Saturation (test 5 % 20-55 L code = 2502-3) VERITO (test code = VERITO) Community Support Specialist ID - [id number] ID - [id number] Lab Interpretation (test Abnormal code = 93155-0) [facility], TIBC, % sat. (without ferritin)2021-09-02 06:23:13 Test Item Value Reference Range Interpretation Comments Iron (test code = 2498-4) 16.0 ug/dL 45.0-170.0 L TIBC (test code = 2500-7) 330 ug/dL 250-550 Iron % Saturation (test 5 % 20-55 L code = 2502-3) VERITO (test code = VERITO) Community Support Specialist ID - [id number] ID - [id number] Lab Interpretation (test Abnormal code = 33698-7) [facility] [place], TIBC, % SAT. (WITHOUT FERRITIN)2021-09-02 06:23:13 Test Item Value Reference Range Interpretation Comments IRON (BEAKER) (test code = 547) 16.0 ug/dL 45.0-170.0 L TOTAL IRON BINDING CAPACITY 330 ug/dL 250-550 (BEAKER) (test code = 769) IRON % SATURATION (2) (BEAKER) 5 % 20-55 L (test code = 2590) Community Support Specialist ID - [id number] ID - FITI31Ydvmqxhk2842-75-62 05:12:03 Test Item Value Reference Range Interpretation Comments Ferritin (test code = 38.80 ng/mL 10.00-291.00 2276-4) VERITO (test code = VERITO) Community Support Specialist ID - [id number] Lab Interpretation (test Normal code = 04227-0) [facility] [place] AngelesFerritin2022-01-22 05:12:03 Test Item Value Reference Range Interpretation Comments Ferritin (test code = 38.80 ng/mL 10.00-291.00 2276-4) VERITO (test code = VERITO) Community Support Specialist ID - [id number] Lab Interpretation (test Normal code = 11700-3) [facility] [place] AngelesFERRITIN2022-01-22 05:12:03 Test Item Value Reference Range Interpretation Comments FERRITIN (BEAKER) (test code = 38.80 ng/mL 10.00-291.00 361) Community Support Specialist ID - fjbc99JDD/Free T4 If Dewhkeynu6441-02-15 05:11:18 Test Item Value Reference Range Interpretation Comments TSH (test code = 0.450 See_Comment [Automated 40266-0) message] The system which generated this result transmit aleks reference range : 0.350 - 5.500 uIU/mL. The reference range was not used to interpret this result as normal/abnormal . VERITO (test code = VERITO) Community Support Specialist ID - [id number] Lab Interpretation Normal (test code = 34705-0) [facility] FarmTSH/Free T4 If Ycwywqfcd1859-87-20 05:11:18 Test Item Value Reference Range Interpretation Comments TSH (test code = 0.450 See_Comment [Automated 24789-2) message] The system which generated this result transmit aleks reference range : 0.350 - 5.500 uIU/mL. The reference range was not used to interpret this result as normal/abnormal . VERITO (test code = VERITO) Community Support Specialist ID - [id number] Lab Interpretation Normal (test code = 24453-6) [facility] FarmTSH/FREE T4 IF [id number] 05:11:18 Test Item Value Reference Range Interpretation Comments THYROID STIMULATING HORMONE 0.450 uIU/mL 0.350-5.500 (BEAKER) (test code = 772) Community Support Specialist ID - [id number] X9156-15-25 04:58:50 Test Item Value Reference Range Interpretation [...] failure, acidosis, acute neurological disease, and persistent tachyarrhythmia.Community Support Specialist ID - [id number] METABOLIC YSZOG7146-74-60 04:52:40 Test Item Value Reference Range Interpretation [...] S NOT APPLICABLE FOR DIALYSIS PATIEN TS. Community Support Specialist ID - [id number] ID - [id number] ID - [id number] ID - byty64Byazkolv ID - ebwj06Fhankieh ID - rfts39Esqhyfuu ID - bzta42Lecdlnlf ID - zake58Lmbtqaww ID - mpvw10Lttuypsq ID - [id number] 04:49:10 Test Item Value Reference Range Interpretation Comments MAGNESIUM (BEAKER) (test code = 1.7 mg/dL 1.5-3.0 627) Community Support Specialist ID - [id number] ID - [id number] ID - [id number] ID - [email or web address] Lipid yhudw7900-79-71 04:49:09 Test Item Value Reference Range Interpretation Comments Triglycerides (test 95 mg/dL code = 2571-8) Cholesterol (test code 172 mg/dL = 2093-3) HDL (test code = 64 mg/dL 5-9) LDL Calculated (test 89 mg/dL code = 37451-8) VERITO (test code = VERITO) Triglyceride Reference Range: Low Risk <150 Borderline 150-199 High Risk 200-499 Very High Risk >=500 Cholesterol Reference Range: Low Risk <200 Borderline 200-239 High Risk >240 HDL Cholesterol Reference Range: Low Risk >=60 High Risk <40 LDL Cholesterol Reference Range: Optimal <100 Near Optimal 100-129 Borderline 130-159 High 160-189 Very High >=190 Community Support Specialist ID - [id number] ID - [id number] ID - [email or web address] [facility] [place] AngelesLipid leijy3043-73-92 04:49:09 Test Item Value Reference Range Interpretation Comments Triglycerides (test 95 mg/dL code = 2571-8) Cholesterol (test code 172 mg/dL = 2093-3) HDL (test code = 64 mg/dL 5-9) LDL Calculated (test 89 mg/dL code = 41792-0) VERITO (test code = VERITO) Triglyceride Reference Range: Low Risk <150 Borderline 150-199 High Risk 200-499 Very High Risk >=500 Cholesterol Reference Range: Low Risk <200 Borderline 200-239 High Risk >240 HDL Cholesterol Reference Range: Low Risk >=60 High Risk <40 LDL Cholesterol Reference Range: Optimal <100 Near Optimal 100-129 Borderline 130-159 High 160-189 Very High >=190 Community Support Specialist ID - [id number] ID - [id number] ID - [email or web address] [facility] [place] AngelesLIPID [id number] 04:49:09 Test Item Value Reference Range Interpretation [...] Borderline 130-159 High 160-189 Very High >=190 Community Support Specialist ID - mhij79Qpahcqed ID - [id number] ID - [id number] 04:46:26 Test Item Value Reference Range Interpretation Comments Phosphorus (test code = 2.4 mg/dL 2.5-4.5 L 2777-1) VERITO (test code = VERITO) Community Support Specialist ID - [id number] Lab Interpretation (test Abnormal code = 79998-6) [facility] 04:46:26 Test Item Value Reference Range Interpretation Comments Phosphorus (test code = 2.4 mg/dL 2.5-4.5 L 2777-1) VERITO (test code = VERITO) Community Support Specialist ID - [id number] Lab Interpretation (test Abnormal code = 85140-5) [facility]OS[facility]ORUS2022-01-22 04:46:26 Test Item Value Reference Range Interpretation Comments PHOSPHORUS (BEAKER) (test code = 2.4 mg/dL 2.5-4.5 L 604) Community Support Specialist ID - [id number] [id number] 04:45:03 Test Item Value Reference Range Interpretation Comments Hemoglobin A1C (test code 5.4 % 4.3-6.1 = 4548-4) VERITO (test code = VERITO) Community Support Specialist ID - [id number] Lab Interpretation (test Normal code = 75497-2) [facility] [place]em[facility] [id number] 04:45:03 Test Item Value Reference Range Interpretation Comments Hemoglobin A1C (test code 5.4 % 4.3-6.1 = 4548-4) VERITO (test code = VERITO) Community Support Specialist ID - [id number] Lab Interpretation (test Normal code = 79140-6) [facility] [place]HEMOGLOBIN [id number] 04:45:03 Test Item Value Reference Range Interpretation Comments HEMOGLOBIN A1C (BEAKER) (test code = 5.4 % 4.3-6.1 368) Community Support Specialist ID - [id number] time/[id number] 04:30:40 Test Item Value Reference Interpretation Comments [...] valves. Lab Interpretation Normal (test code = 10512-5) [facility] [place] AngelesProthrombin time/[id number] 04:30:40 Test Item Value Reference Interpretation Comments [...] valves. Lab Interpretation Normal (test code = 14026-8) [facility] [place] AngelesPROTHROMBIN TIME/[id number] 04:30:40 Test Item Value Reference Range Interpretation Comments PROTIME (BEAKER) 10.7 seconds 9.3-12.0 Final Infor mation (test code = 759) (Auto Outp ut) INR (BEAKER) (test 0.96 See_Comment Final Inf ormation code = 370) (Auto Output) [Automated mess age] The system [employer]TeamOnline generated this result transmitted ref erence range: <=5.90. The reference range was not used to int erpret this result as normal/abnormal . RECOMMENDED COUMADIN/WARFARIN INR THERAPY RANGESSTANDARD DOSE: 2.0 - 3.0 Includes: PROPHYLAXIS for venous thrombosis, systemic embolization; TREATMENT for venous thrombosis and/or pulmonary embolus.HIGH RISK: Target INR is 2.5-3.5 for patients with mechanical heart valves.CBC W/PLT COUNT & AUTO [id number] 04:16:51 Test Item Value Reference Range Interpretation [...] (BEAKER) (test code = 2801) MR, BRAIN, [id number] 03:45:00Unlisted Reason for Exam - Click Yes and Enter Reason Below->NoDeos the patient have an implantedelectronic device?->No [facility] 1995 Sex: FFINAL REPORT [...] cerebellum was not entirely included within the qbbzq-eb-fatw on axial sequences. Parenchyma: No infarction on DWI. No hemorrhage. No mass or mass effect. Abnormal Enhancement: None Extra-axial Collection: None Ventricular System: Normal Major Intracranial Flow Voids: Normal Osseous Structures: Expected marrow signal. Included Orbits: Normal Paranasal Sinuses: Predominantly clear Tympanomastoid Cavities: Normal IMPRESSION: The inferior aspect of the cerebellum was not entirelyincluded within the anvjm-cu-lgvt.. Otherwise, unremarkable MRI of the brain without and with contrast. No finding to account for syncope. Signed: Nita Madsen MDReport Verified Date/Time: 09/02/2021 03:45:34 Rapid drug screen, [id number] 23:47:37 Test Item Value Reference Range Interpretation Comments Barbiturate Screen Negative Negative (test code = 90499-3) Benzodiazepine Screen Positive Negative A (test code = 38325-3) Cocaine (Metab.) Negative Negative Screen (test code = 3397-7) Methadone Screen (test Negative Negative code = 25732-5) Opiate Screen (test Negative Negative code = 73937-6) Cannabinoid Screen Positive Negative A (test code = 60411-5) Amph/Methamph Screen Negative Negative (test code = 03757-0) Phencyclidine Screen Negative Negative (test code = 87686-7) pH, UA (test code = 6.5 5.0-8.0 5803-2) VERITO (test code = VERITO) DRUG CUTOFF CONC.Cocaine 300 ng/mL Cannabinoid 50 ng/mLBenzodiazepine 200 ng/mLBarbiturate 200 ng/mLPhencyclidine 25 ng/mLOpiate 300 ng/mLMethadone 300 ng/mLAmphetamine/ 1000 ng/mL Methamphetamine This assay provides an unconfirmed qualitative test result for the clinical management of patients in emergency situations. Chain of custody not maintained. Some zyee-sbj-itpxold medications, as well as adulterants, may cause inaccurate results. Clinical correlation should be applied. A more comprehensive drug screen or confirmation of a detected drug may be performed upon request.Community Support Specialist ID - ERINYOperator ID - ERINYOperator ID - ERINYOperator ID - ERINYOperator ID - ERINYOperator ID - ERINYOperator ID - ERINYOperator ID - ERINY Lab Interpretation Abnormal (test code = 29480-4) [facility] [place], [id number] 23:47:37 Test Item Value Reference Range Interpretation Comments Barbiturate Screen Negative Negative (test code = 11385-7) Benzodiazepine Screen Positive Negative A (test code = 27124-2) Cocaine (Metab.) Negative Negative Screen (test code = 3397-7) Methadone Screen (test Negative Negative code = 04716-9) Opiate Screen (test Negative Negative code = 56581-9) Cannabinoid Screen Positive Negative A (test code = 28628-1) Amph/Methamph Screen Negative Negative (test code = 19762-0) Phencyclidine Screen Negative Negative (test code = 66172-3) pH, UA (test code = 6.5 5.0-8.0 5803-2) VERITO (test code = VERITO) DRUG CUTOFF CONC.Cocaine 300 ng/mL Cannabinoid 50 ng/mLBenzodiazepine 200 ng/mLBarbiturate 200 ng/mLPhencyclidine 25 ng/mLOpiate 300 ng/mLMethadone 300 ng/mLAmphetamine/ 1000 ng/mL Methamphetamine This assay provides an unconfirmed qualitative test result for the clinical management of patients in emergency situations. Chain of custody not maintained. Some inwy-jsp-wvekzzq medications, as well as adulterants, may cause inaccurate results. Clinical correlation should be applied. A more comprehensive drug screen or confirmation of a detected drug may be performed upon request.Community Support Specialist ID - ERINYOperator ID - ERINYOperator ID - ERINYOperator ID - ERINYOperator ID - ERINYOperator ID - ERINYOperator ID - ERINYOperator ID - ERINY Lab Interpretation Abnormal (test code = 66994-0) [facility] [place]APID DRUG SCREEN, [id number] 23:47:37 Test Item Value Reference Range Interpretation [...] situations. Chain of custody not maintained. Some oxqg-zgm-wxbymjr medications, as well as adulterants, may cause inaccurate results. Clinical correlation should be applied. A more comprehensive drug screen or confirmation of a detected drug may be performed upon request.Community Support Specialist ID - ERINYOperator ID - ERINYOperator ID - ERINYOperator ID - ERINYOperator ID - ERINYOperator ID - ERINYOperator ID - ERINYOperator ID - ERINYUrinalysis w/Odeasbtvpkp0751-89-78 22:54:11 Test Item Value Reference Range Interpretation Comments Color, UA (test code = Yellow 5778-6) Clarity, UA (test code Clear = 5767-9) Specific [place], UA 1.015 1.001-1.035 (test code = 5811-5) pH, UA (test code = 6.5 5.0-8.0 5803-2) Protein, UA (test code Negative Negative = 95482-4) Glucose, UA (test code Negative Negative = 365) Ketones, UA (test code Negative Negative = 2514-8) Bilirubin, UA (test Negative Negative code = 77450-0) Blood, UA (test code = Negative Negative 60920-0) Nitrite, UA (test code Negative Negative = 5802-4) Leukocytes, UA (test Negative Negative code = 5799-2) Urobilinogen, UA (test 0.2 mg/dL 0.2-1.0 code = 15186-3) Bacteria, UA (test Rare code = 28398-7) RBC, UA (test code = None Seen See_Comment [Autom ated message] 799-7) The system [employer] generated this result transmitted ref erence range: /HPF. Th e reference range was not used to int erpret this result as normal/abnormal . WBC, UA (test code = None Seen See_Comment [Autom ated message] 66054-7) The system [employer] generated this result transmitted ref erence range: /HPF. Th e reference range was not used to int erpret this result as normal/abnormal . SQUAMOUS EPITHELIAL 5-10 See_Comment [Automa aleks message] (test code = 45595-2) The sy stem which generated this result transmitted ref erence range: /HPF. Th e reference range was not used to int erpret this result as normal/abnormal . Specimen Source (test code = 2795) [facility] [place] AngelesUrinalysis w/Fcdglfgvgqn6210-47-39 22:54:11 Test Item Value Reference Range Interpretation Comments Color, UA (test code = Yellow 5778-6) Clarity, UA (test code Clear = 5767-9) Specific [place], UA 1.015 1.001-1.035 (test code = 5811-5) pH, UA (test code = 6.5 5.0-8.0 5803-2) Protein, UA (test code Negative Negative = 85324-6) Glucose, UA (test code Negative Negative = 365) Ketones, UA (test code Negative Negative = 2514-8) Bilirubin, UA (test Negative Negative code = 80902-3) Blood, UA (test code = Negative Negative 74817-5) Nitrite, UA (test code Negative Negative = 5802-4) Leukocytes, UA (test Negative Negative code = 5799-2) Urobilinogen, UA (test 0.2 mg/dL 0.2-1.0 code = 97519-1) Bacteria, UA (test Rare code = 54026-9) RBC, UA (test code = None Seen See_Comment [Autom ated message] 799-7) The system [employer] generated this result transmitted ref erence range: /HPF. Th e reference range was not used to int erpret this result as normal/abnormal . WBC, UA (test code = None Seen See_Comment [Autom ated message] 02651-1) The system [employer] generated this result transmitted ref erence range: /HPF. Th e reference range was not used to int erpret this result as normal/abnormal . SQUAMOUS EPITHELIAL 5-10 See_Comment [Automa aleks message] (test code = 68418-3) The sy stem which generated this result transmitted ref erence range: /HPF. Th e reference range was not used to int erpret this result as normal/abnormal . Specimen Source (test code = 2795) [facility] [place]IN[place] W/ [id number] 22:54:11 Test Item Value Reference Range Interpretation [...] = 2795) U/S, PELVIS, WITH ENDOVAG AND [id number] 21:36:00Reason for exam:- >lower abd pain with h/o ovarian cysts [facility] 1995 Sex: FFINAL REPORT [...] Libia Sanabria Verified Date/Time: 09/01/2021 21:36:33 D-dimer, musookttcmza7764-19-39 19:10:58 Test Item Value Reference Range Interpretation Comments D-Dimer, Quant (test 0.47 See_Comment Final I nformation code = 93990-5) (Auto Output ) [Automated message] The system which generated this result transmitted reference range : <0.50 MG/L FEU. The reference range was not used to interpr et this result as normal/abnormal . VERITO (test code = REGARDING D-DIMER VERITO) RESULTS: The 98% NPV (Negative Predictive Value) for DVT/PE exclusion is 0.50 mg/L FEU as suggested by the die cleaner and as approved by the FDA. Lab Interpretation Normal (test code = 95259-2) [facility] [place] AngelesD-[place]er, vzoorqmbbrsw9623-42-26 19:10:58 Test Item Value Reference Range Interpretation Comments D-Dimer, Quant (test 0.47 See_Comment Final I nformation code = 18241-5) (Auto Output ) [Automated message] The system which generated this result transmitted reference range : <0.50 MG/L FEU. The reference range was not used to interpr et this result as normal/abnormal . VERITO (test code = REGARDING D-DIMER VERITO) RESULTS: The 98% NPV (Negative Predictive Value) for DVT/PE exclusion is 0.50 mg/L FEU as suggested by the die cleaner and as approved by the FDA. Lab Interpretation Normal (test code = 61353-6) [facility] [place] AngelesD-[id number] 19:10:58 Test Item Value Reference Range Interpretation Comments D-DIMER QUANTITATIVE 0.47 MG/L FEU <0.50 Final Information (BEAKER) (test code = (Auto Output) 674) REGARDING D-DIMER RESULTS: The 98% NPV (Negative Predictive Value) for DVT/PE exclusion is 0.50 mg/LFEU as suggested by the die cleaner and as approved by the FDA.SARS-CoV2/RT-PCR (Symptomatic ONLY)2021-09-01 18:53:55 Test Item Value Reference Interpretation Comments Range SARS-COV2/RT-PCR Negative Negative The SARS-Co V-2 (test code = target nucleic 69213-5) acids are not detected in thi s [...] revoked sooner. Fact Sheet for Healthcare Providers: https://www.USMD.com/Documents/Xp ert%20Xpress%20SAR S%20CoV-2/Fact%20S heets/302-3802%20S ARS-COV-2%20HEALTH CARE%20PROVIDERS%2 0FACT%20SHEET.pdf Fact Sheet for Healthcare Patients: https://www.Penzata/Documents/Xp ert%20Xpress%20SAR S%20CoV-2/Fact%20S heets/3023801%20S ARS-COV-2%20PATIEN T%20FACT%20SHEET.p df Lab Interpretation Normal (test code = 10157-2) [facility]21-[facility]-01 18:53:55 Test Item Value Reference Interpretation Comments Range SARS-COV2/RT-PCR Negative Negative The SARS-Co V-2 (test code = target nucleic 11060-5) acids are not detected in thi s [...] om SARS-CoV-2 in a nasopharyngeal swab specimen colle aleks from individual s suspected of COVID-19 [...] revoked sooner. Fact Sheet for Healthcare Providers: https://www.[employer]/Documents/Xp ert%20Xpress%20SAR S%20CoV-2/Fact%20S heets/3023802%20S ARS-COV-2%20HEALTH CARE%20PROVIDERS%2 0FACT%20SHEET.pdf Fact Sheet for Healthcare Patients: https://www.[employer]/Documents/Xp ert%20Xpress%20SAR S%20CoV-2/Fact%20S heets/302-3801%20S ARS-COV-2%20PATIEN T%20FACT%20SHEET.p df Lab Interpretation Normal (test code = 81013-7) [facility])2021-09-01 18:53:55 Test Item Value Reference Range Interpretation Comments SARS-COV2/RT-PCR Negative Negative The SARS-Co V-2 target (test code = nucleic acids a re not 2767957) detected in thi s specimen. Negative result [...] revoked sooner. Fact Sheet for Healthcare Providers: https://www.gocarshare.com m/Documents/Xpert%20Xpress%20SARS%20CoV-2/Fact%20Sheets/302-3802%36KKTG-RJT-4%20 HEALTHCARE%20PROVIDERS%20FACT%20SHEET.pdf Fact Sheet for Healthcare Patients: https://www.Audemat/Documents/Xpert%20Xp ress%20SARS%20CoV-2/Fact%20Sheets/302-3801%81FGTZ-TDL-7%20PATIENT%20FACT%20SHEET .pdfYONG [id number] 18:23:25 Test Item Value Reference Range Interpretation Comments TROPONIN I (IRASEMAAKER) (test code = 397) < ng/mL 0.00-0.15 [...] failure, acidosis, acute neurological disease, and persistent tachyarrhythmia.Community Support Specialist ID - ERINYCT, BRAIN, WITHOUT [id number] 18:21:00Unlisted Reason for Exam - Click Yes and Enter Reason Below->No[facility] : 1995 Sex: FFINAL REPORT [...] LindseyMDReport Verified Date/Time: 09/01/2021 18:21:53 BASI METABOLIC [id number] 18:16:13 Test Item Value Reference Range Interpretation [...] S NOT APPLICABLE FOR DIALYSIS PATIEN TS. Community Support Specialist ID - ERINYOperator ID - ERINYOperator ID - ERINYOperator ID - ERINYOperator ID - ERINYOperator ID - ERINYOperator ID - ERINYOperator ID - ERINYOperator ID - ERINYOperator ID - ERINYOperator ID- ERINYOperator ID - ERINYOperator ID - ERINYRAD, CHEST, 1 VIEW, NON [id number] 18:11:00Reason for exam:->HEADACHEReason for exam:->LOSS OF CONSCIOUSNESSShould this be performed at the bedside?->Yes [facility] 1995 Sex: FFINAL REPORT RAD, CHEST, 1 VIEW, NON DEPT TECHNIQUE: Frontal view(s) of the chest. INDICATION: HEADACHELOSS OF CONSCIOUSNESS COMPARISON: 11/21/2020 chest radiograph FINDINGS/IMPRESSION: Lines/Tubes: None Lungs/pleura: Lungs are clear and well inflated. No pleural effusion.No pneumothorax. Heart and Mediastinum: Unremarkable. Soft Tissues and Bones: Cholecystectomy clips in the right upper quadrant of the abdomen. Signed: Libia Sanabria Verified Date/Time: 09/01/2021 18:11:00 CBC W/PLT COUNT & AUTO [id number] 18:08:05 Test Item Value Reference Range Interpretation [...] NA (test code = 135 mmol/L 135-145 9362125339) K (test code = 3.9 mmol/L 3.5-5.0 8903320795) CL (test code = 104 mmol/L 98-108 8697012843) CO2 TOTAL (test code 28 mmol/L 23-31 = 1407847103) AGAP (test code = 2-16 7532576721) BUN (test code = 11 mg/dL 7-23 9842571111) GLUCOSE (test code = 96 mg/dL 70-110 5321426085) CREATININE (test code 0.55 mg/dL 0.50-1.04 = 0030452187) CALCIUM (test code = 8.9 mg/dL 8.6-10.6 1221157795) eGFR (test code = mL/min/1.73m2 6270734884) VERITO (test code = VERITO) Association of [...] or urine or abnormalities in imaging tests). [facility] 17:09:39 Test Item Value Reference Range Interpretation Comments APPEARANCE (test code = Clear Clear 3352384463) COLOR (test code = Yellow Yellow 0040623526) PH (test code = 4.8-8.0 3413411305) SP GRAVITY (test code = 1.003-1.030 5371542135) GLU U QUAL (test code = Normal Normal 4616862973) BLOOD (test code = Negative Negative 9328715574) KETONES (test code = Negative Negative 0116322064) PROTEIN (test code = Negative Negative 2887-8) UROBILIN (test code = Normal Normal 9844081152) BILIRUBIN (test code = Negative Negative 4578986771) NITRITE (test code = Negative Negative 1620093365) LEUK MICHAEL (test code = Negative Negative 4258753236) RBC/HPF (test code = <1 See_Comment [Autom ated message] 6438003689) The system [employer] generated this result transmitted ref erence range: 0 - 3 HP F. The reference range was not used to int erpret this result as normal/abnormal . WBC/HPF (test code = <1 See_Comment [Autom ated message] 4553470965) The system [employer] generated this result transmitted ref erence range: 0 - 5 HP F. The reference range was not used to int erpret this result as normal/abnormal . BACTERIA (test code = Negative Negative 1468310355) MUCOUS (test code = Slight Negative LPF A 8185456593) SQ EPITH (test code = HPF 8867335593) Lab Interpretation (test Abnormal code = 47102-1) [facility] CenterHEPAT[facility] FUNCTION PAN[facility] (87482) (ALB,T.PRO,BILI T,BU/BC,ALT,AST,ALK PHOS)2021-04-03 17:08:52 Test Item Value Reference Range Interpretation Comments TOTAL BILI (test code = 9013581883) 0.3 mg/dL 0.1-1.1 BILI UNCON (test code = 9090467304) 0.2 mg/dL 0.1-1.1 BILI CONJ (test code = 1384617404) 0.0 mg/dL 0.0-0.3 T PROTEIN (test code = 2728406354) 7.3 g/dL 6.3-8.2 ALBUMIN (test code = 2006647413) 4.1 g/dL 3.5-5.0 ALK PHOS (test code = 9644076661) 70 U/L 34-122 ALTv (test code = 1742-6) 18 U/L 5-35 AST(SGOT) (test code = 8724867634) 35 U/L 13-40 Lab Interpretation (test code = Normal 77926-7) [facility] CenterLIPASE2021-[facility] 17:08:52 Test Item Value Reference Range Interpretation Comments LIPASE (test code = 5675631071) 18 U/L 0-220 Lab Interpretation (test code = Normal 21564-3) [facility] CenterCBC WITH [id number] 16:51:50 Test Item Value Reference Range Interpretation [...] RDW-SD (test code = 39.4 fL 39.0-49.9 06482-6) RDW-CV (test code = 14.4 % 12.0-15.5 788-0) PLT (test code = See_Comment [Automated 777-3) message] The sy stem which generated this result transmitted reference range : 166 - 358 10*3/ ?L. The reference r ryann was not used to interpret this result as normal/abnormal . MPV (test code = 9.8 fL 9.5-12.9 74221-5) NRBC/100 WBC (test See_Comment [Automat ed code = 5025486959) message] The system which generated this result transmitted reference range : 0.0 - 10.0 /100 WBCs. The refer ence range was not u sed to interpret th is result as normal/abnormal . NRBC x10^3 (test code <0.01 See_Comment [Auto mated = 1801672004) message] The s ystem which generated this result transmitted reference range : 10*3/?L. The reference range was not used to interpret this result as normal/abnormal . GRAN MAT (NEUT) % 54.3 % (test code = 770-8) IMM GRAN % (test code 0.20 % = 4423366179) LYMPH % (test code = 33.6 % 736-9) MONO % (test code = 8.6 % 5905-5) EOS % (test code = 2.2 % 713-8) BASO % (test code = 1.1 % 706-2) GRAN MAT x10^3(ANC) 2.46 10*3/uL 1.88-7.09 (test code = 3019329043) IMM GRAN x10^3 (test <0.03 0.00-0.06 code = 9377214611) LYMPH x10^3 (test code 1.52 10*3/uL 1.32-3.29 = 731-0) MONO x10^3 (test code 0.39 10*3/uL 0.33-0.92 = 742-7) EOS x10^3 (test code = 0.10 10*3/uL 0.03-0.39 711-2) BASO x10^3 (test code 0.05 10*3/uL 0.01-0.07 = 704-7) Lab Interpretation Abnormal (test code = 40826-5) [facility] CenterCOMPREHENSIVE METABOLIC [id number] 02:06:00 Test Item Value Reference Range Interpretation [...] S NOT APPLICABLE FOR DIALYSIS PATIEN TS. Community Support Specialist ID - JUSTINOperator ID - JUSTINOperator ID - JUSTINOperator ID - JUSTINOperator ID - JUSTINOperator ID - JUSTINOperator ID - JUSTINOperator ID - JUSTINOperator ID - JUSTINOperator ID - JUSTINOperator ID - JUSTINOperator ID - JUSTINOperator ID - JUSTINOperator ID - JUSTINOperator ID - JUSTINOperator ID - JUSTINOperator ID - JUSTINOperator ID - JUSTINOperator ID - JUSTINCBC W/PLT COUNT & AUTO [id number] 01:38:00 Test Item Value Reference Range Interpretation [...] PERCENT (BEAKER) (test code = 2801) CT, [id number] 20:33:00Unlisted Reason for Exam - Click Yes and Enter Reason Below->NoWill this procedure require oral contrast?->No [facility] 1995 Sex: FFINAL REPORT [...] MDReport Verified Date/Time: 11/21/2020 20:33:54 Reading Location: [address] Consult Reading Room COMPREHENSIVE METABOLIC [id number] 18:33:00 Test Item Value Reference Range Interpretation [...] S NOT APPLICABLE FOR DIALYSIS PATIEN TS. Community Support Specialist ID - JUSTINOperator ID - JUSTINOperator ID - JUSTINOperator ID - JUSTINOperator ID - JUSTINOperator ID - JUSTINOperator ID - JUSTINOperator ID - JUSTINOperator ID - JUSTINOperator ID - JUSTINOperator ID - JUSTINOperator ID - JUSTINOperator ID - JUSTINOperator ID - JUSTINOperator ID - JUSTINOperator ID - [id number] 18:33:00 Test Item Value Reference Range Interpretation Comments LIPASE (BEAKER) (test code = 749) 8 U/L 6-51 Community Support Specialist ID - JUSTINOperator ID - JUSTINOperator ID - JUSTINOperator ID - KENDRICK CBC W/PLT COUNT & AUTO [id number] 18:16:00 Test Item Value Reference Range Interpretation [...] (BEAKER) (test code = 2801) URINALYSIS W/ [id number] 18:13:00 Test Item Value Reference Range Interpretation [...] = 2795) RAD, CHEST, 1 VIEW, NON [id number] 16:45:00Reason for exam:->fever and abdominal painShould this be performed at the bedside?->Yes [facility] 1995 Sex: FFINAL REPORT CHEST AP PORTABLE History provided: Fever, abdominal pain Radiographically normal-appearing heart and lungs. Signed: Polo Onofre Verified Date/Time:11/21/2020 16:45:24 Reading Location: [facility] Radiology Reading Room TISSUE EXAM 2020-11-10 15:53:00Surgical Pathology Report Case: [id number] Authorizing Provider: Beatriz Martinez MD Collected: 11/08/2020 04:08 PM Ordering Location: [facility] Received: 11/09/2020 08:07 AM SERVICES Path ologist: Gwen Velez MD Specimen: Uterus w/Cervix & Bilateral Fallopian Tubes, UTERUS, CERVIX AND BILATERAL FALLOPIAN TUBES. UTERUS WITH CERVIX AND BILATERAL FALLOPIAN TUBES, HYSTERECTOMY AND BILATERAL SALPINGECTOMY:ENDOMETRIUM: - PROLIFERATIVE ENDOMETRIUMMYOMETRIUM: - NO SIGNIFICANT PATHOLOGIC ALTERATIONRIGHT FALLOPIAN TUBE: - PARATUBAL CYSTLEFT FALLOPIAN TUBE: - NO SIGNIFICANT PATHOLOGIC ALTERATIONMG/pl Signing Pathologist Direct Phone Line: [phone] signed byGwen Velez MD on 11/10/2020 at 3:53 [id number] or frequent menstruationUterus, cervix, and bilateral fallopian tubeThe specimen is received in fixative and labeled with the patient'sname, medical record number and designated as "uterus with cervix and bilateral fallopian tubes" andconsists of a hysterectomy specimen (70 gm, 7.5 cm superior to inferior, 5.5 cm cornu to cornu and 2.5 cm anterior to posterior) with attached right fallopian [...] 1.5 cm in greatest thickness. No intramural nodules are identified. Section code: A1, anterior cervix; A2, posterior cervix; A3, anterior endomyometrium; A4, posterior endomyometrium; A5, right fimbriated end entirely submitted along with right paratubal cyst; A6, labor representative cross sections of right fallopian tube; A7, left fimbriated, entirely submitted; A8, labor representative cross sections of left fallopian tube. MG/pl Performed [facility], Department of Pathology, [address] [place] [address], [facility], Department of Pathology, [address] [place] [address], [facility], [address] [place] [address], PWLF-COV2/INFLUENZA/RSV [id number] 20:30:00 Test Item Value Reference Range Interpretation Comments SARS-COV2/RT-PCR Positive Negative AA (test code = 2808659) INFLUENZA A RT-PCR Negative Negative (test code = 0200160) INFLUENZA B RT-PCR Negative Negative (test code = 1046065) RSV RT-PCR (test Negative Negative Performance of the Xpert code = 0921215) Xpress SARS- CoV-2/Flu/RSV test has only b [...] sooner.Fact She et for Healthcare Prov iders: https://www.Wyzerr.com/D ocuments/Xpert% 20Xpress%2 8JQCM-ThB-5-Flu -RSV/- 508%20Rev.%20B% 20HCP%20Fa ct%20Sheet.pdfF act Sheet for Healthcare Patients: https://www.Wyzerr.com/D ocuments/Xpert% 20Xpress%2 5BNSY-NaJ-5-Flu -RSV/302- 507%20Rev.%20B% 20Patient% 20Fact%20Sheet. pdf SCREEN, [id number] 13:18:00 Test Item Value Reference Range Interpretation Comments TEST URINE (BEAKER) (test Negative code = 583) BASIC METABOLIC [id number] 15:01:00 Test Item Value Reference Range Interpretation [...] S NOT APPLICABLE FOR DIALYSIS PATIEN TS. Community Support Specialist ID - [id number] ID - [id number] ID - [id number] ID - [id number] ID - [id number] ID - [id number] ID - [id number] ID - [id number] ID - [id number] ID - [id number] ID - [id number] ID - [id number] ID - [id number] W/PLT COUNT & AUTO [id number] 14:33:00 Test Item Value Reference Range Interpretation [...] PERCENT (BEAKER) (test code = 2801) TISSUE [id number] 09:31:00Surgical Pathology Report Case: [id number] Authorizing Provider: Beatriz Martinez MD Collected: 08/23/2020 08:08 AM Ordering Location: [facility] PERIOPERATIVE Received: 08/23/2020 11:27 AM SERVICES Pathologist: Gwen Velez MD Specimens: A) - Curettings, Endocervical B) - Curettings, Endometrial A. ENDOCERVIX, CURETTINGS: - BENIGN ENDOCERVICAL MUCOSAB. ENDOMETRIUM, CURETTINGS: - ENDOMETRIAL POLYP - BACKGROUND PROLIFERATIVE ENDOMETRIUM Signing Pathologist Direct Phone Line: [phone] signed by Gwen Veelz MD on 08/24/2020 at 9:31 [id number] [id number] abdominal pain A. Curettings endocervical; B. Currettings, endometrial Specimen A is received in fixative and labeled with the patient's name, medical record number and designated as "curettings endocervical" and consists of red clear mucoid material measuring 2.5 x 1.5 x 0.3 cm in aggregate. The specimen is entirely submitted into A1. Specimen B is received in fixative and labeled with the patient's name, medicalrecord number and designated as "curettings, endometrial" and consists of white-han tissue received within a mesh bag measuring 3.0 x 2.5 x 0.5 cm in aggregate. The specimen is entirely submitted into B1. Additionally within the specimen container are red-brown tissue fragments received on a Telfa pad. The tissue fragments are also submitted into B1. MG/pl A-B: Performed [facility], Department of Pathology, [address] [place] [address], [facility], Department of Pathology, [address] [place] [address], [facility], [facility] of [facility], [address] [place] [address], ZDGWGXEMV SCREEN, [id number] 06:27:00 Test Item Value Reference Range Interpretation Comments TEST URINE (BEAKER) (test Negative code = 583) SARS-COV2/RT-PCR ([facility])2020-08-20 07:08:00 Test Item Value Reference Range Interpretation Comments SARS-COV2/RT-PCR (test Negative Not Detected, Negative, code = 6324516) See external report for linked test SARS-COV-2 PERFORMING LAB [facility] (test code = 0083544) Negative result for this test determines that [...] the Stevenson SARS-CoV-2 assay.Fact Sheet for Healthcare Providers:https://www.CoCollage.stevenson/lucía/RT_SAR M-AgU-2_YGL_Xlus_Fwwmg_55-247011.pdfFact Sheet for Healthcare Patients:https://www.CoCollage.stevenson/s al/VD_YZXE-NsD-2_Emwouqa_Txbl_Tioxk_XQ_43-786533G6.pdfPerforming Laboratory:[place] [address] [place] [address] BASIC METABOLIC [id number] 11:08:00 Test Item Value Reference Range Interpretation [...] 1092) DATA TO CALCULA TE ESTIMATED GFR. Community Support Specialist ID - LITOOperator ID - LITOOperator ID - LITOOperator ID - LITOOperator ID - LITOOperator ID - LITOOperator ID - LITOOperator ID - LITOOperator ID - LITOOperator ID - LITOOperator ID - LITOOperator ID - LITOOperator ID - LITOCBC W/PLT COUNT & AUTO [id number] 10:57:00 Test Item Value Reference Range Interpretation [...] in Respiratory specimen by KATIE with probe [id number] 03:49:53 Test Item Value Reference Range Interpretation Comments SARS-CoV-2 (COVID-19) RNA Not detected Not-Detected [Presence] in Respiratory specimen by KATIE with probe detection (test code = 19633-2) XR CHEST 1 [id number] 16:18:43 No acute cardiopulmonary abnormality. Preliminary Report [...] reviewed this study and agree with the abovereport.[facility] TROPONIN [id number] 16:03:00 Test Item Value Reference Range Interpretation Comments TROPONIN I (test <0.012 See_Comment [Automated code = 5094921849) message] The system which generated this result [...] ? Lab Interpretation Normal (test code = 46936-4) [facility]D-[id number] 16:00:00 Test Item Value Reference Interpretation Comments Range D-DIMER (test code = See_Comment H [Autom ated 9890058353) message] The system which generated this result [...] diagnosis. Lab Interpretation Abnormal (test code = 40037-5) [facility] ([facility] NOW RAPID TESTING)2020-05-22 16:00:00 Test Item Value Reference Range Interpretation Comments SARS-CoV-2 Rapid ID NOW Not Detected Not Detected (test code = 93838-0) VERITO (test code = VERITO) ID NOW COVID-19 Assay is an isothermal nucleic acid amplification test intended for the qualitative detection of nucleic acid from SARS-CoV-2 viral RNA in nasopharyngeal (SALES DEMONSTRATOR) specimens. It is used under Emergency Use [...] indicated. Lab Interpretation Normal (test code = 25199-9) [facility]TT2020-10-[facility] 15:53:00 Test Item Value Reference Range Interpretation Comments APTT Patient (test See_Comment [Automat ed code = 3173-2) message] The system which generated this result transmitted reference range : 23 - 38 Seconds . The reference range was not used to interpr et this result as normal/abnormal . VERITO (test code = VERITO) The [facility] patient population mean normal value for aPTT is 30 seconds. Lab Interpretation Normal (test code = 94307-4) [facility]. METABOLIC PANEL (66396)2020-05-22 15:52:00 Test Item Value Reference Range Interpretation Comments NA (test code = 138 mmol/L 135-145 6132679689) K (test code = 3.7 mmol/L 3.5-5 8717180552) CL (test code = 102 mmol/L 98-108 0582135398) CO2 TOTAL (test code = 29 mmol/L 23-31 5436993417) AGAP (test code = 2-16 2017156951) BUN (test code = 7 mg/dL 7-23 1521540100) GLUCOSE (test code = 65 mg/dL 70-110 L 0072498206) CREATININE (test code = 0.70 mg/dL 0.5-1.04 4036858344) TOTAL BILI (test code = 0.4 mg/dL 0.1-1.3 4863886701) CALCIUM (test code = 9.3 mg/dL 8.6-10.6 0720351938) T PROTEIN (test code = 7.8 g/dL 6.3-8.2 1983784875) ALBUMIN (test code = 4.2 g/dL 3.5-5 7118838685) ALK PHOS (test code = 79 U/L 34-122 8383307224) ALTv (test code = 12 U/L 5-35 1742-6) AST(SGOT) (test code = 25 U/L 13-40 1292894834) eGFR Calculation mL/min/1.73m2 (Non-) (test code = 5822848860) eGFR Calculation mL/min/1.73m2 () (test code = 8872286222) VERITO (test code = EVRITO) Association of Glomerular Filtration Rate (GFR) and [...] tests). Lab Interpretation Abnormal (test code = 13284-4) [facility] CenterUrinalysis2020-10-11 15:51:00 Test Item Value Reference Range Interpretation Comments APPEARANCE (test code = Clear Clear 0085618960) COLOR (test code = Straw Yellow A 5463046815) PH (test code = 4.8-8.0 4459989224) SP GRAVITY (test code = 1.003-1.030 7050749476) GLU U QUAL (test code = Normal Normal 3335076520) BLOOD (test code = Negative Negative 4567824575) KETONES (test code = Negative Negative 4382732613) PROTEIN (test code = Negative Negative 2887-8) UROBILIN (test code = Normal Normal 7813507557) BILIRUBIN (test code = Negative Negative 6154915763) NITRITE (test code = Negative Negative 9933078098) LEUK MICHAEL (test code = Negative Negative 9731068353) RBC/HPF (test code = See_Comment [Autom ated message] 2684830468) The system [employer] generated this result transmitted ref erence range: 0 - 3 HP F. The reference range was not used to int erpret this result as normal/abnormal . WBC/HPF (test code = <1 See_Comment [Autom ated message] 8828015646) The system [employer] generated this result transmitted ref erence range: 0 - 5 HP F. The reference range was not used to int erpret this result as normal/abnormal . BACTERIA (test code = Negative Negative 0782066450) SQ EPITH (test code = HPF 5659408814) Lab Interpretation (test Abnormal code = 45048-0) [facility] CenterPROTHROMBIN TIME / [id number] 15:51:00 Test Item Value Reference Range Interpretation Comments PROTIME PATIENT (test See_Comment [Auto mated message] code = 5964-2) The system wh ich generated this result transmitted ref erence range: 12.0 - 1 4.7 Seconds. The re ference range was not u sed to interpret this result as normal/abnor mal. INR (test code = 6301-6) Nor mal INR <1.1; Warfarin Therap eutic range 2.0 to 3. 0 or 2.5 to 3.5, dep ending upon the indica tions. Lab Interpretation (test Normal code = 58612-4) [facility] CenterLIPASE, [id number] 15:51:00 Test Item Value Reference Range Interpretation Comments LIPASE (test code = 4010348468) 32 U/L 0-220 Lab Interpretation (test code = Normal 85463-7) [facility] CenterCBC WITH [id number] 15:40:00 Test Item Value Reference Range Interpretation Comments WBC (test code = See_Comment [Automated 7490-2) message] The sy stem which generated this result transmitted reference range : 4.30 - 11.10 10*3/?L. The reference range was not used to interpret this result as normal/abnormal . RBC (test code = See_Comment [Automated 889-8) message] The sy stem which generated this [...] RDW-SD (test code = 41.2 fL 39-49.9 52120-4) RDW-CV (test code = 17.3 % 12-15.5 H 788-0) PLT (test code = See_Comment [Automated 777-3) message] The sy stem which generated this result transmitted reference range : 166 - 358 10*3/ ?L. The reference r ryann was not used to interpret this result as normal/abnormal . MPV (test code = 9.8 fL 9.5-12.9 27954-9) NRBC/100 WBC (test See_Comment [Automat ed code = 9920989074) message] The system which generated this result transmitted reference range : 0.0 - 10.0 /100 WBCs. The refer ence range was not u sed to interpret th is result as normal/abnormal . NRBC x10^3 (test code <0.01 See_Comment [Auto mated = 5315855803) message] The s ystem which generated this result transmitted reference range : 10*3/?L. The reference range was not used to interpret this result as normal/abnormal . GRAN MAT (NEUT) % 50.9 % (test code = 770-8) IMM GRAN % (test code 0.20 % = 0698075574) LYMPH % (test code = 33.3 % 736-9) MONO % (test code = 8.4 % 5905-5) EOS % (test code = 5.4 % 713-8) BASO % (test code = 1.8 % 706-2) GRAN MAT x10^3(ANC) 2.55 10*3/uL 1.88-7.09 (test code = 0262544915) IMM GRAN x10^3 (test <0.03 0-0.06 code = 7160306992) LYMPH x10^3 (test code 1.67 10*3/uL 1.32-3.29 = 731-0) MONO x10^3 (test code 0.42 10*3/uL 0.33-0.92 = 742-7) EOS x10^3 (test code = 0.27 10*3/uL 0.03-0.39 711-2) BASO x10^3 (test code 0.09 10*3/uL 0.01-0.07 H = 704-7) Lab Interpretation Abnormal (test code = 27156-8) [facility] CenterPOCT [id number] 15:21:00 Test Item Value Reference Range Interpretation Comments POCT PREG (test code = 1605) negative On board controls acceptable with present C Line (test code = 3574) POCT PREG LOT # (test code = 3575) [id number] POCT PREG TEST DATE (test 2021-04-11 code = 3576) Lab Interpretation (test code = Normal 96023-8) [facility]
--- NOTE | 2022-04-24 23:09 | RAD REPORT ---
EXAM DESCRIPTION: RAD - Chest Single View - 04/24/2022 10:58 pm CLINICAL HISTORY: CHEST PAIN Chest pain. COMPARISON: Chest Single View dated 01/30/2021; Chest Single View dated 05/23/2020; Chest Single View dated 05/21/2020; Chest Single View dated 04/17/2020 FINDINGS: Portable technique limits examination quality. The lungs are grossly clear. The heart is normal in size. No displaced fractures. IMPRESSION: No acute intrathoracic process suspected.
[2022-04-24 23:12] LABS: Hematocrit 35.1 % (36.0-45.0); Lymphocytes % 29.5 % (15.3-44.8); MCV 73.7 fL (80-100); RBC Red Blood Cell Count 4.76 M/uL (3.86-4.86)
[2022-04-24 23:35] LABS: BUN Blood Urea Nitrogen 13 mg/dL (7-18); Bicarbonate 29 mmol/L (21-32); Glomerular Filtration Rate 96 ml/min (=/>90); Glucose Level 103 mg/dL (74-106); Potassium 3.5 mmol/L (3.5-5.1); Sodium Level 139 mmol/L (136-145)
[2022-04-24 23:40] LABS: Troponin High Sensitivity < 3.0 pg/mL (<58.9)
[2022-04-24] MEDS ORDERED: NA CHLORIDE 0.9% 100 ML ONE ×2 (23:43→23:46)
[2022-04-24] MEDS ORDERED: LEVETIRACETAM 500 MG/5 ML VIAL IV ONE (23:43)
[2022-04-25] MEDS ORDERED: FENTANYL CITR 100 MCG/2 ML ONE (00:14)
[2022-04-25] MEDS ORDERED: NA CHLORIDE 0.9% 100 ML ONE (01:24)
[2022-04-25] MEDS ORDERED: LEVETIRACETAM 500 MG/5 ML VIAL IV ONE (01:24)
[2022-04-25] MEDS ORDERED: LORazepam 2 MG/ML VIAL ONE (02:13)
--- NOTE | 2022-04-25 05:46 | ER ---
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 At this time, the client does not indicate any symptoms associated with coronavirus-19. 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 Ebola Screen: No symptoms or risks identified at this time. Initial Sepsis Screen: Does the patient meet any 2 criteria? No. Patient's initial sepsis screen is negative. Does the patient have a suspected source of infection? No. Patient's initial sepsis screen is negative. Risk Assessment: Do you want to hurt yourself or someone else? Patient reports no desire to harm self or others. Onset of symptoms was April 24, 2022 at 19:00. Activity prior to arrival: seizure. 21:50 Method Of Arrival: Ambulatory ll3 21:50 Acuity: GERI 3 ll3 Triage Assessment: 21:50 General: Appears uncomfortable, Behavior is calm, cooperative. Pain: Complains of pain 3 in chest Pain currently is 9 out of 10 on a pain scale. Quality of pain is described as pressure, Pain began 3 hours ago. Is continuous. Neuro: Level of Consciousness is awake, alert, obeys commands, Oriented to person, place, time, situation, Seizure activity noted at this time. reported prior to arrival. Cardiovascular: Patient's skin is warm and dry. Rhythm is sinus rhythm Chest pain is described as mild, quality is pressure, is located in anterior chest wall began 3 hours prior to arrival episodes are continuous is aggravated by States it began after experiencing a seizure. Respiratory: Respiratory effort is even, unlabored, Respiratory pattern is regular, symmetrical. Derm: Skin is pink, warm \\T\\ dry. Musculoskeletal: Circulation, motion, and sensation intact. 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 ll3 Historical: - Allergies: 22:07 No Known Allergies; ll3 - Home Meds: 22:08 carvedilol 6.25 mg Oral tab 1 tab 2 times per day [Active]; diclofenac sodium 75 mg ll3 Oral TbEC 1 tab 2 times per day [Active]; hydroxyzine HCl 50 mg Oral tab 1 tab [Active]; oxcarbazepine 150 mg Oral tab 2 times per day [Active]; Risperdal 2 mg Oral tab 1 tab once daily [Active]; Valtrex 500 mg Oral tab 1 tab 2 times per day [Active]; Chemo pills [Active]; - PMHx: 22:07 Anemia; Depression; High Blood Pressure; Seizure; ll3 - PSHx: 22:07 Cholecystectomy; hysterectomy; ll3 - Immunization history:: Client reports receiving the 2nd dose of the Covid vaccine. - Social history:: Smoking status: Reported history of juuling and/or vaping. Screenin:50 Abuse screen: Denies threats or abuse. Denies injuries from another. Nutritional ll3 screening: No deficits noted. Tuberculosis screening: No symptoms or risk factors identified. Fall Risk No fall in past 12 months (0 pts). Secondary diagnosis (15 points) seizures, IV access (20 points). Ambulatory Aid- None/Bed Rest/Nurse Assist (0 pts). Gait- Normal/Bed Rest/Wheelchair (0 pts) Mental Status- Oriented to own ability (0 pts). Total Singh Fall Scale indicates Low Risk Score (25-44 pts). Fall prevention measures have been instituted. Side Rails Up X 2 Placed close to Nursing Station Family Present and informed to notify staff if they need to leave bedside As available Patient and Family Educated on Fall Prevention Program and strategies. Assessment: 21:50 Reassessment: See triage assessment. ll3 21:50 Reassessment:. Neuro: Seizure activity noted at this time. Patient is post-ictal at ll3 this time. Dr. Mclean, ERP notified. 22:49 Reassessment: Patient and/or family updated on plan of care and expected duration. Pain ll3 level reassessed. Patient is alert, oriented x 3, equal unlabored respirations, skin warm/dry/pink. No seizure activity since 2149. 22:51 Pain: ll3 23:20 Neuro: Seizure activity noted at this time. Mom states "She is having them back to back ll3 now". 23:27 Neuro: Seizure activity noted at this time. ll3 04/25 00:00 Reassessment: Patient and/or family updated on plan of care and expected duration. Pain ll3 level reassessed. Patient is alert, oriented x 3, equal unlabored respirations, skin warm/dry/pink. C/o chest pain 04/21, Dr. Mclean notified. 01:00 Reassessment: Patient and/or family updated on plan of care and expected duration. Pain ll3 level reassessed. Patient is alert, oriented x 3, equal unlabored respirations, skin warm/dry/pink. Patient states symptoms have improved. 01:08 Neuro: Seizure activity noted at this time. Patient is post-ictal at this time. Dr. sharita Mclean, ERP notified. 02:26 Reassessment: Patient and/or family updated on plan of care and expected duration. Pain ll3 level reassessed. Patient is alert, oriented x 3, equal unlabored respirations, skin warm/dry/pink. Patient states symptoms have improved. 03:28 Reassessment: No changes from previously documented assessment. Patient and/or family ll3 updated on plan of care and expected duration. Pain level reassessed. Patient is alert, oriented x 3, equal unlabored respirations, skin warm/dry/pink. 04:30 Reassessment: No changes from previously documented assessment. Patient and/or family as6 updated on plan of care and expected duration. Pain level reassessed. Patient is alert, oriented x 3, equal unlabored respirations, skin warm/dry/pink. 05:42 Reassessment: No changes from previously documented assessment. Patient and/or family as6 updated on plan of care and expected duration. Pain level reassessed. Patient is alert, oriented x 3, equal unlabored respirations, skin warm/dry/pink. Vital Signs: 04/24 21:50 BP 127 / 84; Pulse 84; Resp 16; Temp 98.4(O); Pulse Ox 100% on R/A; Weight 71.21 kg ll3 (R); Height 5 ft. 6 in. (167.64 cm) (R); Pain 9/10; 23:00 BP 118 / 72; Pulse 85; Resp 17; Pulse Ox 100% on R/A; ll3 04/25 00:00 BP 102 / 54; Pulse 90; Resp 18; Pulse Ox 100% on R/A; ll3 01:00 BP 122 / 69; Pulse 79; Resp 12; Pulse Ox 100% on R/A; ll3 02:26 BP 103 / 67; Pulse 74; Resp 20; Pulse Ox 99% on R/A; ll3 03:28 BP 103 / 71; Pulse 70; Resp 15; Pulse Ox 100% on R/A; ll3 04:30 BP 124 / 80; Pulse 64; Resp 15; Pulse Ox 100% on R/A; as6 05:42 BP 123 / 93; Pulse 66; Resp 16; Pulse Ox 100% on R/A; as6 04/24 21:50 Body Mass Index 25.34 (71.21 kg, 167.64 cm) ll3 ED Course: 04/24 21:33 Patient arrived in ED. bp1 21:47 Ganga Mclean MD is Attending Physician. kdr 21:50 Arm band placed on Patient placed in an exam room, on a stretcher, on property assessment monitor, ll3 on pulse oximetry. EKG completed in triage. Results shown to MD. 22:00 Seizure precautions initiated. ll3 22:07 Triage completed. ll3 22:51 Client placed on continuous cardiac and pulse oximetry monitoring. NIBP monitoring ll3 applied. 22:51 Patient maintains SpO2 saturation greater than 95% on room air. ll3 22:57 Initial lab(s) drawn, by me, sent to lab. Inserted saline lock: 22 gauge in left wrist, jw7 using aseptic technique. Blood collected. 23:00 XRAY Chest (1 view) In Process Unspecified. EDMS 04/25 00:00 Adelso Doyle RN is Primary Nurse. ll3 01:34 CT Head Brain wo Cont In Process Unspecified. EDMS 05:56 No provider procedures requiring assistance completed. IV discontinued, intact, ll3 bleeding controlled, No redness/swelling at site. Pressure dressing applied. Administered Medications: 04/24 23:40 Drug: Keppra (levETIRAcetam) 1000 mg Route: IV; Rate: calculated rate; Site: left wrist;ll3 04/25 02:24 Follow up: Response: No adverse reaction; IV Status: Completed infusion; IV Intake: ll3 100ml 00:09 Drug: fentaNYL (PF) 25 mcg Route: IVP; Site: left wrist; ll3 02:24 Follow up: Response: No adverse reaction ll3 01:12 Not Given (Duplicate Order): Keppra (levETIRAcetam) 1000 mg PO once kl 01:12 Not Given (Duplicate Order): Keppra (levETIRAcetam) 1000 mg IV at calculated rate once ll3 01:41 Drug: Keppra (levETIRAcetam) 1000 mg Route: IV; Rate: calculated rate; Site: left wrist;ll3 02:23 Follow up: Response: No adverse reaction; IV Status: Completed infusion; IV Intake: ll3 100ml 02:23 Drug: Ativan (LORazepam) 1 mg Route: IVP; Site: left wrist; ll3 05:56 Follow up: Response: No adverse reaction ll3 Medication: 05:56 VIS not applicable for this client. ll3 Intake: 02:23 IV: 100ml; Total: 100ml. ll3 02:24 IV: 100ml; Total: 200ml. ll3 Outcome: 05:46 Discharge ordered by . kdr 05:56 Discharged to home ambulatory, with family. ll3 05:56 Condition: stable 05:56 Discharge instructions given to patient, family, Instructed on discharge instructions, follow up and referral plans. medication usage, Demonstrated understanding of instructions, follow-up care, medications, Prescriptions given X 1. 05:56 Patient left the ED. 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 At this time, the client does not indicate any symptoms associated with coronavirus-19. [facility] 22:18 22:03 Ebola Screen: No symptoms or risks identified at this time. [place] [id number] 22:18 22:03 Initial Sepsis Screen: Does the patient meet any 2 criteria? No. Patient's [facility] initial sepsis screen is negative. Does the patient have a suspected source of infection? No. Patient's initial sepsis screen is negative. [facility] 22:18 22:03 Risk Assessment: Do you want to hurt yourself or someone else? Patient reports no [facility] desire to harm self or others. [facility] 22:18 22:03 Onset of symptoms was April 24, 2022 at 19:00 [place] [id number] 22:18 22:03 Activity prior to arrival: seizure, [place] [id number] 22:18 22:03 Method Of Arrival: Ambulatory [place] [address] 22:18 22:03 BP 127 / 84; Pulse 84bpm; Resp 16bpm; Pulse Ox 100% RA; Temp 98.4F Oral; 71.21 kg [facility] Reported; Height 5 ft. 6 in. Reported; BMI: 25.3; Pain 9/10; [facility] 22:18 22:03 Acuity: GERI 3 [place] [address] 22:50 21:50 Neuro: Seizure activity noted at this time. Patient is post-ictal at this time. [place] [id number]
--- NOTE | 2022-04-25 05:47 | EDPHYS ---
Physician Documentation [facility] Name: Cheyanne Lopes Age: 26 yrs Sex: Female : 1995 Arrival Date: 04/24/2022 Time: 21:33 Bed 2 Private MD: ED Physician Ganga Mclean HPI: 04/25 20:16 This 26 yrs old Black Female presents to ER via Ambulatory with complaints of Chest kdr Pain, Seizure. 20:16 Patient had multiple seizures today of unknown duration. She has a history of a seizure kdr disorder and was known to have occasional breakthrough seizures however her seizure activity today has been more persistent than usual and she has had some chest discomfort along with it. She denies any nausea or vomiting she denies trauma. Her mother who is here with her states that they were together when she first began having seizures today. She indicated that she was able to catch her daughter prior to her hitting the ground was able to ease her down so that there was no injury from the initial fall. Patient otherwise is alert and oriented at this time and without complaint. 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 ll3 Historical: - Allergies: 22:07 No Known Allergies; ll3 - Home Meds: 22:08 carvedilol 6.25 mg Oral tab 1 tab 2 times per day [Active]; diclofenac sodium 75 mg ll3 Oral TbEC 1 tab 2 times per day [Active]; hydroxyzine HCl 50 mg Oral tab 1 tab [Active]; oxcarbazepine 150 mg Oral tab 2 times per day [Active]; Risperdal 2 mg Oral tab 1 tab once daily [Active]; Valtrex 500 mg Oral tab 1 tab 2 times per day [Active]; Chemo pills [Active]; - PMHx: 22:07 Anemia; Depression; High Blood Pressure; Seizure; ll3 - PSHx: 22:07 Cholecystectomy; hysterectomy; ll3 - Immunization history:: Client reports receiving the 2nd dose of the Covid vaccine. - Social history:: Smoking status: Reported history of juuling and/or vaping. ROS: 04/25 21:03 Constitutional: Negative for fever, chills, and weight loss, Eyes: Negative for injury, kdr pain, redness, and discharge, ENT: Negative for injury, pain, and discharge, Neck: Negative for injury, pain, and swelling, Respiratory: Negative for shortness of breath, cough, wheezing, and pleuritic chest pain, Abdomen/GI: Negative for abdominal pain, nausea, vomiting, diarrhea, and constipation, Back: Negative for injury and pain, : Negative for injury, bleeding, discharge, and swelling, MS/Extremity: Negative for injury and deformity, Skin: Negative for injury, rash, and discoloration, Psych: Negative for depression, anxiety, suicide ideation, homicidal ideation, and hallucinations, Allergy/Immunology: Negative for hives, rash, and allergies, Endocrine: Negative for neck swelling, polydipsia, polyuria, polyphagia, and marked weight changes, Hematologic/Lymphatic: Negative for swollen nodes, abnormal bleeding, and unusual bruising. Cardiovascular: Positive for chest pain, of the mid-sternal area, edema, orthopnea, palpitations. Exam: 21:03 Constitutional: This is a well developed, well nourished patient who is awake, alert, kdr and in no acute distress. Head/Face: Normocephalic, atraumatic. Eyes: Pupils equal round and reactive to light, extra-ocular motions intact. Lids and lashes normal. Conjunctiva and sclera are non-icteric and not injected. Cornea within normal limits. Periorbital areas with no swelling, redness, or edema. Neck: Trachea midline, no thyromegaly or masses palpated, and no cervical lymphadenopathy. Supple, full range of motion without nuchal rigidity, or vertebral point tenderness. No Meningismus. Chest/axilla: Normal chest wall appearance and motion. Nontender with no deformity. No lesions are appreciated. Cardiovascular: Regular rate and rhythm with a normal S1 and S2. No gallops, murmurs, or rubs. Normal PMI, no JVD. No pulse deficits. Respiratory: Lungs have equal breath sounds bilaterally, clear to auscultation and percussion. No rales, rhonchi or wheezes noted. No increased work of breathing, no retractions or nasal flaring. Abdomen/GI: Soft, non-tender, with normal bowel sounds. No distension or tympany. No guarding or rebound. No evidence of tenderness throughout. Back: No spinal tenderness. No costovertebral tenderness. Full range of motion. Skin: Warm, dry with normal turgor. Normal color with no rashes, no lesions, and no evidence of cellulitis. MS/ Extremity: Pulses equal, no cyanosis. Neurovascular intact. Full, normal range of motion. Neuro: Awake and alert, GCS 15, oriented to person, place, time, and situation. Cranial nerves II-XII grossly intact. Motor strength 5/5 in all extremities. Sensory grossly intact. Cerebellar exam normal. Normal gait. Psych: Awake, alert, with orientation to person, place and time. Behavior, mood, and affect are within normal limits. Vital Signs: 04/24 21:50 BP 127 / 84; Pulse 84; Resp 16; Temp 98.4(O); Pulse Ox 100% on R/A; Weight 71.21 kg ll3 (R); Height 5 ft. 6 in. (167.64 cm) (R); Pain 9/10; 23:00 BP 118 / 72; Pulse 85; Resp 17; Pulse Ox 100% on R/A; ll3 04/25 00:00 BP 102 / 54; Pulse 90; Resp 18; Pulse Ox 100% on R/A; ll3 01:00 BP 122 / 69; Pulse 79; Resp 12; Pulse Ox 100% on R/A; ll3 02:26 BP 103 / 67; Pulse 74; Resp 20; Pulse Ox 99% on R/A; ll3 03:28 BP 103 / 71; Pulse 70; Resp 15; Pulse Ox 100% on R/A; ll3 04:30 BP 124 / 80; Pulse 64; Resp 15; Pulse Ox 100% on R/A; as6 05:42 BP 123 / 93; Pulse 66; Resp 16; Pulse Ox 100% on R/A; as6 04/24 21:50 Body Mass Index 25.34 (71.21 kg, 167.64 cm) ll3 MDM: 05:46 Patient medically screened. kdr 21:03 Data reviewed: vital signs, nurses notes, lab test result(s), radiologic studies. kdr Counseling: I had a detailed discussion with the patient and/or guardian regarding: the historical points, exam findings, and any diagnostic results supporting the discharge/admit diagnosis, lab results, radiology results, the need for outpatient follow up. ED course: After several rounds of medication, the patient symptoms improved. I reviewed all laboratory data with the patient. She was happy with the care provided the plan for discharge and follow-up. 04/24 22:24 Order name: Basic Metabolic Panel; Complete Time: 00:44 3 04/24 22:24 Order name: CBC with Diff; Complete Time: 00:44 3 04/24 22:24 Order name: Troponin HS; Complete Time: 00:44 3 04/24 22:24 Order name: XRAY Chest (1 view); Complete Time: 00:44 3 04/24 23:12 Order name: Troponin High Sensitivity: Draw 2 hours after first draw [facility] 04/25 01:13 Order name: CT Head Brain wo Cont kdr 04/24 22:24 Order name: EKG; Complete Time: 22:25 3 04/24 22:24 Order name: Cardiac monitoring; Complete Time: 22:25 [facility] 04/24 22:24 Order name: EKG - Nurse/Tech; Complete Time: 22:25 3 04/24 22:24 Order name: IV Saline Lock; Complete Time: 22:57 [facility] 04/24 22:24 Order name: Labs collected and sent; Complete Time: 22:57 [facility] 04/24 22:24 Order name: O2 Per Protocol; Complete Time: 22:25 3 04/24 22:24 Order name: O2 Sat Monitoring; Complete Time: 22:25 ll3 Administered Medications: 04/24 23:40 Drug: Keppra (levETIRAcetam) 1000 mg Route: IV; Rate: calculated rate; Site: left wrist;ll3 04/25 02:24 Follow up: Response: No adverse reaction; IV Status: Completed infusion; IV Intake: ll3 100ml 00:09 Drug: fentaNYL (PF) 25 mcg Route: IVP; Site: left wrist; ll3 02:24 Follow up: Response: No adverse reaction ll3 01:12 Not Given (Duplicate Order): Keppra (levETIRAcetam) 1000 mg PO once kl 01:12 Not Given (Duplicate Order): Keppra (levETIRAcetam) 1000 mg IV at calculated rate once ll3 01:41 Drug: Keppra (levETIRAcetam) 1000 mg Route: IV; Rate: calculated rate; Site: left wrist;ll3 02:23 Follow up: Response: No adverse reaction; IV Status: Completed infusion; IV Intake: ll3 100ml 02:23 Drug: Ativan (LORazepam) 1 mg Route: IVP; Site: left wrist; ll3 05:56 Follow up: Response: No adverse reaction ll3 Disposition Summary: 04/25/22 05:46 Discharge Ordered Location: Home kdr Problem: an acute exacerbation kdr Symptoms: have improved kdr Condition: Stable kdr Diagnosis - Conversion disorder with seizures or convulsions - Breakthrough kdr - Sleep deprivation kdr Followup: kdr - With: Private Physician - When: 2 - 3 days - Reason: If symptoms return, Further diagnostic work-up, Recheck today's complaints, Continuance of care, Re-evaluation by your physician Discharge Instructions: - Discharge Summary Sheet kdr - Seizure, Adult, [id number] kdr - Quality Sleep Information, Adult kdr Forms: - Medication Reconciliation Form kdr - Thank You Letter kdr Prescriptions: - Ativan 1 mg Oral Tablet - take 1 tablet by ORAL route Every night As needed for sleep; 10 tablet; kdr Refills: 0, Product Selection Permitted Signatures: Dispatcher [employer] Beatriz Muniz, RN RN Ganga Jacobs MD MD kdr Loubet, Lynsea RN RN ll3
--- NOTE | 2022-04-25 12:28 | RAD REPORT ---
EXAM DESCRIPTION: CT - Head Brain Wo Cont - 04/25/2022 6:49 am CLINICAL HISTORY: 26 years, Female, Seizure disorder, clinical change COMPARISON: None FINDINGS: Multiple transaxial tomograms of the brain were obtained from the base of the skull to the vertex without contrast. 2-D multiplanar reformats and the coronal and sagittal plane were performed and reviewed. This exam was performed according to our departmental dose-optimization protocol, which includes auto mated exposure control, adjustment of the mA and/or kV according to patient size and/or use of iterat sonal reconstruction technique. Brain parenchyma as well as the schneider and white matter differentiation demonstrate to be unremarkable. There is no midline shift and/or mass effect. There is no evidence for acute hemorrhage. No focal ar eas of hypodensities. Lateral ventricles and cisterns displace normal appearance. No intra or ext ra axial fluid collections were seen. The calvarium is intact with no evidence for fracture. The visu alized portions of the paranasal sinuses and orbits demonstrate to be clear. IMPRESSION: No acute intracranial hemorrhage identified. Unremarkable CT scan of the head without contrast. Electronically signed by: Chacorta Beltre MD 04/25/2022 1:45 AM CDT Due to temporary technical issues with the PACS/Fluency reporting system, reports are being signed by the in house radiologists without review as a courtesy to insure prompt reporting. The interpreting radiologist is fully responsible for the content of the report.
--- NOTE | 2022-04-25 17:08 | EKG ---
Test Date: 2022-04-24 Test Time: 21:57:01 Cnc Laser Operator: MARIBETH MEASUREMENT RESULTS: Intervals: Rate: 90 [place]: 160 QRSD: 80 QT: 388 QTc: 474 [place]: P: 74 [place]: 160 QRS: 67 T: 60 INTERPRETIVE STATEMENTS: Normal sinus rhythm Normal ECG Compared to ECG 04/24/2022 21:55:21 ST (T wave) deviation no longer present Prolonged QT interval no longer present Myocardial infarct finding no longer present Electronically Signed On 04-25-22 17:06:40 CDT by Mirza Aguirre
--- NOTE | 2022-04-25 17:08 | EKG ---
Test Date: 2022-04-24 Test Time: 21:55:21 Senior Games Technician: LL MEASUREMENT RESULTS: Intervals: Rate: 95 [place]: 172 QRSD: 86 QT: 456 QTc: 573 [place]: P: 65 [place]: 172 QRS: 67 T: 61 INTERPRETIVE STATEMENTS: Poor data quality, interpretation may be adversely affected Age and gender specific ECG analysis Undetermined rhythm ST elevation, consider anterior injury or acute infarct Prolonged QT ACUTE MT / STEMI Abnormal ECG Compared to ECG 04/19/2022 22:22:10 ST (T wave) deviation now present Prolonged QT interval now present Myocardial infarct finding now present Sinus rhythm no longer present Electronically Signed On 04-25-22 17:06:40 CDT by Mirza Aguirre
[2022-04-25 19:23] VITALS: TEMP 98.4
[2022-04-25 19:55] VITALS: O2SAT 100
[2022-04-25 19:59] VITALS: BP 123/93
== END 2022-04-25 05:56 | disposition home or self-care (01) ==
LOC: ER 21:30
DX: F44.5 Conversion disorder with seizures or convulsions (principal); Z72.820 Sleep deprivation
CPT/HCPCS: 93005 ×2; 85025; 80048; 36415; 84484 ×2; 70450; 71045; J3010; J1953 ×2

== ENCOUNTER 2022-05-06 18:05 | Observation (INO) | payer OTHER, SELFPAY ==
[2022-05-06] MEDS ORDERED: LORazepam 2 MG/ML VIAL ONE ×2 (18:26→20:24)
[2022-05-06] MEDS ORDERED: LEVETIRACETAM 500 MG/5 ML VIAL IV ONE ×2 (18:26→20:23)
[2022-05-06] MEDS ORDERED: NA CHLORIDE 0.9% 1,000 ML ONE (18:27)
[2022-05-06] MEDS ORDERED: NA CHLORIDE 0.9% 100 ML ONE ×2 (18:27→20:25)
[2022-05-06 18:31] LABS: Absolute Lymphocytes (CBC) 2.1 K/uL (0.7-4.9); Hematocrit 37.5 % (36.0-45.0); Lymphocytes % 35.4 % (15.3-44.8); MCV 75.8 fL (80-100); MPV 8.7 fL (7.6-11.3); RBC Red Blood Cell Count 4.95 M/uL (3.86-4.86)
--- OUTSIDE RECORDS SUMMARY | 2022-05-06 18:36 | XMS REPORT | Continuity of Care Document ---
:1995 Author Organization [facility] t Address [address] [place] [id number] Care Team Providers Name Role Phone SYSTEM, PROVIDER NOT IN Primary Care Physician Unavailable BEATRIZ MARTINEZ Attending Clinician Unavailable MAITE IBARRA Attending Clinician Unavailable MAITE IBARRA Attending Clinician Unavailable Doctor Unassigned, [place] Attending Clinician Unavailable ANTOLIN MARCUM Attending Clinician Unavailable Antolin Marcum MD Attending Clinician CAPO LOBO Attending Clinician Unavailable Capo Lobo DO Attending Clinician PETRONA PAN Attending Clinician Unavailable Petrona Pan DO Attending Clinician BEATRIZ MARTINEZ Attending Clinician Unavailable Beatriz Martinez Attending Clinician MAY MULLINS Attending Clinician Unavailable May Mullins MD Attending Clinician Raymundo Borges MD Attending Clinician [phone] Deep RAVI, Tiffanie Nkriau Attending Clinician Sindhu Medeiros MD Attending Clinician SINDHU MEDEIROS Attending Clinician Unavailable Hussain SCOTTMarli Attending Clinician KIMBERLY MI Attending Clinician Unavailable RADHA RUFFIN Attending Clinician Unavailable SYEDA HIDALGO Attending Clinician Unavailable ERLINDA MARCUM Attending Clinician Unavailable NOLA BUNCH Attending Clinician Unavailable MD YONATAN BARKER Attending Clinician Unavailable TANYA BARTON Attending Clinician Unavailable ANA BOO Attending Clinician Unavailable Ana Boo NP Attending Clinician AkinLauren Burgos Attending Clinician [phone] BEATRIZ MARTINEZ Admitting Clinician Unavailable CAPO LOBO Admitting Clinician Unavailable BEATRIZ MARTINEZ Admitting Clinician Unavailable Beatriz Martinez Admitting Clinician TIFFANIE MORGAN NKROMAIN Admitting Clinician Unavailable SINDHU MEDEIROS Admitting Clinician Unavailable NOLA BUNCH Admitting Clinician Unavailable MD YONATAN BARKER Admitting Clinician Unavailable Payers Payer Name Policy Type Policy Number Effective Date Expiration Date Memo BOWLES SWAIN [id number] 2020 00:00:00 CHRISTA SWEENEYR FROM [id number] 2020 [facility] 00:00:00 Problems Condition Condition Condition Status Onset Resolution Last Treating Co mments Source Name Details Category Date Date Treatment Clinician Date PELVIC AND PELVIC Diagnosis Active 2021-12-31 Memoria PERINEAL AND 12-04 15:31:00 l PAIN-R10.2 PERINEAL 00:00: Herm roni / OVARIAN PAIN-R10.2 00 / OVARIAN Active 12/04/2021 [facility] Anemia Anemia Disease Active [facility] [...] of breast breast 00:00: g of this [place] cancer cancer 00 note Medical might be Branch different from the original. Reports grandmoth er dx at age 44 Well woman Well woman Disease Active U nivers exam exam 6-05 ity of 00:00: [place] [address] Medical Branch Breast Breast Disease Active Univers pain pain 6-05 ity of 00:00: [place] [address] Medical Branch Corpus Corpus Disease Active Univers luteum luteum 6-05 ity of cyst or cyst or 00:00: [place] hematoma hematoma 00 Medica l Branch Need for Need for Disease Active Unive rs HPV HPV 6-05 it[place] BMI BMI Disease Active 2019- Univers 26.0-26.9, 26.0-26.9, 6-05 it y of adult adult 00:00: [place] [address] Medical Branch Well woman Well woman Disease Active 2019 U nivers exam exam 6-05 ity of 00:00: [place] [address] Medical Branch Pelvic and Pelvic Problem 2021-12-08 Memoria perineal and 22:13:17 l pain perineal [place] pain 12/08/2021 [facility] Mixed Mixed Problem Resolve 2021-12-08 Devin latrice anxiety anxiety d 22:13:17 l and and [place] depressive depressive disorder disorder (disorder) (disorder) Resolved Problem 12/08/2021 [facility] Seizure Seizure Problem Resolve 2021-12-08 M emoria (finding) (finding) d 22:13:17 l Resolved [place] Problem 12/08/2021 [facility] PELVIC AND PELVIC Diagnosis Active 2021-12-31 Memoria PERINEAL AND 15:31:00 l PAIN PERINEAL [place] PAIN Active [facility] Allergies, Adverse Reactions, Alerts Allergy Allergy Status Severity Reaction(s) Onset Inactive Treating Comm ents Source Name Type Date Date Clinician NO KNOWN Allergy Active [facility] ALLERGIE S NO KNOWN Drug Active Univers ALLERGIE Class ity of S [facility] Social History Social Habit Start Date Stop Date Quantity Comments Source History SDOH [facility] Dr[facility] History SDOH [facility] Alcohol Binge Medical [address] [facility] History SDOH [facility] Alcohol Comment Medical C enter Alcohol intake 2022-04-25 2022-04-25 [facility]00 of alcohol [facility] (finding) Exposure to 2022-02-17 2022-02-27 Not sure University SARS-CoV-2 00:00:00 13:24:00 [facility] (event) [place] Social History 2021-12-04 2021-12-04 [facility] 20:06:54 20:06:54 History SDOH 2020-08-22 2020-08-[address] [facility] Alcohol Frequency 00:00:00 00:00:00 [facility] Tobacco use and 2020-08-22 2020-08-[address] [facility] exposure 00:00:00 00:00:00 [facility] Sex Assigned At [address] [facility] 00:00:00 00:00:00 [facility] Smoking Status Start Date Stop Date Source Never smoker [facility] Center Medications Ordered Filled Start Stop Current Ordering Indication Dosage Frequency Signature Comments Components Source Medication Medication Date Date Medication? Clinician (SIG) Name Name ascorbic Yes QD Take by [facility] acid/multiv 9-14 [facility]ukes it-min 19:31: daily . Medical (EMERGEN-C 24 Center IMMUNE PLUS ORAL) ferrous Yes 325mg Take 325 [facility] sulfate 325 9-14 mg by [facility]ukes (65 FE) MG 19:31: mouth Medica l tablet 22 daily with Center breakfast. risperiDONE Yes 2mg Q.5D Take [address] (RisperDAL) 9-14 by mouth 2 [facility]elli k[facility] 2 MG tablet 19:31: (two) Medic al 22 times Center daily. hydrOXYzine Yes 100mg Take [address] (VISTARIL) 9-14 mg by Lukes 100 MG 19:31: mouth 3 Medical capsule 22 (three) Center times daily as needed for Itching. oxcarbazepi Yes Take by [facility] ne 9-14 mouth. [facility] (TRILEPTAL 19:31: Medical ORAL) 22 Center NaCl 0.9% 2021- No 1000mL at 999 Uni vers (NS) bolus 02-27 07-19 mL/hr, ity of infusion 18:30: 20:00 1,000 mL, Biju as 1,000 mL 00 :00 IV Medical Infusion, Branch ONCE, 1 dose, On Sat02/27/22 at 1330, STAT ketorolac 2021- No 30mg 30 mg, Unive rs (TORADOL) 01-25-16 Slow IV ity of injection 16:00: 15:19 Push, [place] 30 mg 00 :00 ONCE, 1 Medical dose, On Branch [facility] 01/25/22 at 1100, LINDA NaCl 0.9% 2021- No 1000mL at 999 Uni vers (NS) bolus 01-25 06-16 mL/hr, ity of infusion 15:30: 15:45 1,000 mL, Biju as 1,000 mL 00 :00 IV Medical Infusion, Branch ONCE, 1 dose, On Yue 01/25/22 at 1030, LINDA oxcarbazepi Yes Take by Uni vers ne 6-16 mouth. ity of (TRILEPTAL 12:01: [place] ORAL) Medical Branch risperidone 2021-0 Yes Take by Uni vers (RISPERDAL 6-16 mouth. ity of ORAL) 12:01: [place] [address] Medical Branch oxcarbazepi 2021- Yes Take by Uni vers ne 6-16 mouth. ity of (TRILEPTAL 12:01: [place] ORAL) Medical Branch risperidone 2021- Yes Take by Uni vers (RISPERDAL 6-16 mouth. ity of ORAL) 12:01: [place] 45 Medical Branch oxcarbazepi Yes Take by Uni vers ne 6-16 mouth. ity of (TRILEPTAL 12:01: [address] risperidone Yes Take by Uni vers (RISPERDAL 6-16 mouth. ity of ORAL) 12:01: [address] ibuprofen Yes 600 mg = 1 Me moria 600 mg oral 4-27 tab, PO, l tablet 11:28: Q6H, PRN [place] 00 Pain or Fever, Take with food, X 10 day, # 40 tab, 1 Refill(s), Pharmacy: [facility], 165.1, cm, 12/05/21 21:26:00 CDT, Height, 81.3, kg, 12/05/21 21:26:00 CDT, Weight ibuprofen Yes 600 mg = 1 Me moria 600 mg oral 4-27 tab, PO, l tablet 11:28: Q6H, PRN [place] 00 Pain or Fever, Take with food, X 10 day, # 40 tab, 1 Refill(s), Pharmacy: [facility], 165.1, cm, 12/05/21 21:26:00 CDT, Height, 81.3, kg, 12/05/21 21:26:00 CDT, Weight [place] 5/325 0 Yes 1 tab, PO, Memoria oral tablet 4-27 Q4H, PRN l 11:27: Pain Score [place] 00 1-3, X 7 day, # 30 tab, 0 Refill(s), Pharmacy: [facility], 165.1, cm, 12/05/21 21:26:00 CDT, Height, 81.3, kg, 12/05/21 21:26:00 CDT, Weight [place] 5/325 0 Yes 1 tab, PO, Memoria oral tablet 4-27 Q4H, PRN l 11:27: Pain Score [place] 00 1-3, X 7 day, # 30 tab, 0 Refill(s), Pharmacy: [facility], 165.1, cm, 12/05/21 21:26:00 CDT, Height, 81.3, kg, 12/05/21 21:26:00 CDT, Weight Zofran No Notes: Memoria 12-05 (Same as: l 22:53: Zofran) MEDICATION WASTE Product Size: 4 mg Product Wasted: ___ mg Zofran No Notes: Memoria 12-05 (Same as: l 22:53: Zofran) MEDICATION WASTE [...] (ANES) 12-05 Drug form: l 19:56: INJ, ONCE Stop date: 12/05/21 14:56:00 CDT glycopyrrol No [...] CDT neostigmine No Route: IV, Memoria (ANES) 4-26 Drug form: l 19:56: INJ, ONCE, Stop date: 12/05/21 14:56:00 CDT ANES No Notes: Memoria fentaNYL 4-26 (Same as: l 19:38: Sublimaze) Preservati ve free. S No Notes: Memoria HYDROmorpho 4-26 Same as: l ne 19:38: Dilaudid No Notes: Memoria flumazenil 4-26 (Same as: l 19:38: Romazicon) No Notes: Memoria naloxone 4-26 Same as l 19:38: Narcan No Notes: Memoria ondansetron 4-26 (Same as: l 19:38: Zofran) MEDICATION WASTE Product Size: 4 mg Product Wasted: ___ mg S No Notes: Memoria fentaNYL 4-26 (Same as: l 19:38: Sublimaze) Preservati ve free. No Notes: Memoria HYDROmorpho 4-26 Same as: l ne 19:38: Dilaudid No [...] ONCE, Stop date: 12/05/21 14:22:00 CDT midazolam 0 No Route: IV, Me moria (ANES) 12-05 Drug form: l 19:17: SOLN, ONCE, Stop date: 12/05/21 14:17:00 CDT fentaNYL 0 No Route: IV, Mem oria (ANES) 12-05 Drug form: l 19:17: INJ, ONCE, Stop date: 12/05/21 14:17:00 CDT propofol 0 No Route: IV, Mem oria (ANES) 12-05 Drug form: l 19:17: INJ, ONCE, Stop date: 12/05/21 14:17:00 CDT rocuronium No Route: IV, M emoria (ANES) 12-05 Drug form: l 19:17: INJ, ONCE, Stop date: 12/05/21 14:17:00 CDT midazolam 0 No Route: IV, Me moria (ANES) 12-05 Drug form: l 19:17: SOLN, [place] 00 ONCE, Stop date: 12/05/21 14:17:00 CDT fentaNYL 0 No Route: IV, Mem oria (ANES) [...] ONCE, Stop date: 12/05/21 13:37:00 CDT dexamethaso No Route: IV, Memoria ne (ANES) 12-05 Drug form: l 18:37: INJ, ONCE, Stop date: 12/05/21 13:37:00 CDT ceFAZolin No Route: IV, Me moria (ANES) 12-05 Drug form: l 18:37: INJ, ONCE, Stop date: 12/05/21 13:37:00 CDT ketOROLAC 0 No 4 days Memor ia 30 mg/mL 12-05 l injectable 18:29: MEDICATION H ermann solution WASTE Product Size: 30 mg Product Wasted: ___ mg [place] 5/325 No Notes: Devin latrice oral tablet 12-05 (Same as: l 18:29: [place] 00 325/5) Do not exceed 4gm/day of acetaminop hen. ketOROLAC No 4 days Memor ia 30 mg/mL 12-05 l injectable 18:29: MEDICATION H ermann solution 00 WASTE Product Size: 30 mg Product Wasted: ___ mg [place] 5/325 No Notes: Devin latrice oral tablet 12-05 (Same as: l 18:29: [place] 00 325/5) Do not exceed 4gm/day of acetaminop hen. Lactated No Route: IV, Mem oria Ringers 4-26 Total l Injection 18:22: Volume: Cindy nn IV (ANES) 00 1,000, 1000 mL Start date: 12/05/21 13:22:00 CDT, Stop date: 12/05/21 14:22:00 CDT Lactated No Route: IV, Mem oria Ringers 4-26 Total l Injection 18:22: Volume: Cindy nn IV (ANES) 00 1,000, 1000 mL Start date: 12/05/21 13:22:00 CDT, Stop date: 12/05/21 14:22:00 CDT acetaminoph No Notes: Max Memoria en 4-26 acetaminop l 15:17: hen 4000 [place] 00 mg/day (4 gm/day). (Same as: Tylenol Extra Strength) celecoxib No Notes: Memori a 4-26 NSAID. l 15:17: Please [place] 00 check indication . Not for seizure. (Same As: CeleBREX) gabapentin No Notes: Memor ia 4-26 (Same as: l 15:17: Neurontin) [place] 00 acetaminoph No Notes: Max Memoria en 4-26 acetaminop l 15:17: hen 4000 [place] 00 mg/day (4 gm/day). (Same as: Tylenol Extra Strength) celecoxib No Notes: Memori a 4-26 NSAID. l 15:17: Please [place] 00 check indication . Not for seizure. (Same As: CeleBREX) gabapentin No Notes: Memor ia 4-26 (Same as: l 15:17: Neurontin) [place] 00 Lactated No 1,000 mL, Devin latrice Ringers 4-26 Rate: 75 l Injection 15:16: ml/hr, [place] n IV 1,000 mL 00 Infuse over: 13.3 hr, Route: IV, Dosing Weight 80.909 kg, Total Volume: 1,000, Start date: 12/05/21 10:16:00 CDT, Duration: 30 day, Stop date: 01/04/22 10:15:00 CDT, BSA: 1.96 m2, 0 Lactated 2-0 No 1,000 mL, Devin latrice Ringers 4-26 Rate: 75 l Injection 15:16: ml/hr, [place] n IV 1,000 mL 00 Infuse over: 13.3 hr, Route: IV, Dosing Weight 80.909 kg, Total Volume: 1,000, Start date: 12/05/21 10:16:00 CDT, Duration: 30 day, Stop date: 01/04/22 10:15:00 CDT, BSA: 1.96 m2, 0 Ancef 2-0 No Notes: Memoria 4-26 Same as l 11:00: Ancef [place] 00 Lactated 2-0 No 1,000 mL, Devin latrice Ringers 4-26 Rate: 125 l Injection 11:00: ml/hr, [place] n IV 1,000 mL 00 Infuse over: 8 hr, Route: IV, Dosing Weight 80.909 kg, Total Volume: 1,000, Start date: 12/05/21 6:00:00 CDT, Duration: 30 day, Stop date: 01/04/22 5:59:00 CDT, BSA: 1.96 m2, 0 Ancef 2-0 No Notes: Memoria 4-26 Same as l 11:00: Ancef [place] 00 Lactated 2-0 No 1,000 mL, Devin latrice Ringers 4-26 [...] BID, 0 Herm roni 00 Refill(s) carvedilol Yes 6.25 mg = Me moria 6.25 mg 4-25 1 tab, PO, l oral tablet 19:57: BID, 0 Herm roni 00 Refill(s) Trileptal Yes 150 mg, Memor ia 4-25 PO, l 19:56: Bedtime, # [place] 00 30 tab, 0 Refill(s) Trileptal Yes 150 mg, Memor ia 4-25 PO, l 19:56: Bedtime, # [place] 00 30 tab, 0 Refill(s) Risperdal Yes 2 mg = 2 Devin latrice M-Tab 1 mg 4-25 tab, PO, l oral 19:53: Bedtime, # [place] tablet, 00 60 tab, 0 disintegrat Refill(s) ing Risperdal Yes 2 mg = 2 Devin latrice M-Tab 1 mg 4-25 tab, PO, l oral 19:53: Bedtime, # [place] tablet, 00 60 tab, 0 disintegrat Refill(s) ing oxcarbazepi Yes Take by [facility] 3-29 mouth. Milagros (TRILEPTAL 02:50: Medical ORAL) [place] oxcarbazepi Yes Take by [facility] ne 3-29 mouth. [place] (TRILEPTAL 02:50: Medical ORAL) 01 Center multivitami Yes 1{capsu QD Take [address] n capsule 3-27 le} capsule by Luke s 21:57: mouth Medical 40 daily. [place] multivitami Yes 1{capsu QD Take [address] n capsule 3-27 le} capsule by [place] s 21:57: mouth Medical 40 daily. [place] ascorbic Yes QD Take by [facility] [...] Medic al 40 times Center daily. hydrOXYzine 0 Yes 100mg Take [address] (VISTARIL) 3-27 mg by [facility] 100 MG 21:57: mouth 3 Medical capsule 40 (three) Center times daily as needed for Itching. multivitami 0 Yes 1{capsu QD Take [address] n capsule 3-27 le} capsule by Luke s 21:57: mouth Medical 40 daily. Center ascorbic 0 Yes QD Take by [facility] acid/multiv [...] as needed for nausea or vomiting. ondansetron 2020 Yes 8mg Q6H Take 2 Meth violet [...] 16:36 ONCE, 1 [place] 00 :00 dose, [facility] 05/22/20 Branch at 1245, STAT ketorolac 2019-08- No 30mg 30 mg, Unive rs (TORADOL) 0-11 10-11 Slow IV ity of injection 16:30: 15:39 Push, [place] 30 mg 00 :00 ONCE, 1 Medical dose, [facility] 05/22/20 at 1130, Routine
member of technical staff approving Restricted medication : ANA BOO cephALEXin 2019-08 2020- No 500mg Take 500 U nivers (KEFLEX) 0-11 10-11 mg by ity of 500 mg 16:27: 00:00 mouth 4 [place] capsule 49 :00 (four) Medical times Branch daily. cephALEXin 2019-0 Yes 500mg Take 500 Un annette (KEFLEX) 6-05 mg by ity of 500 mg 13:59: mouth 4 [place] capsule 29 (four) Medical times Branch daily. cephALEXin 2019-0 Yes 500mg Take 500 Un annette (KEFLEX) 6-05 mg by ity of 500 mg 13:59: mouth 4 [place] capsule 29 (four) Medical times Branch daily. norgestimat 2019-0 Yes [id number] 1{tbl} Take 1 Univers e-ethinyl 6-05 tablet by ity o f estradiol 00:00: mouth [place] (ORTHO 00 daily. [facility], 28,) 0.18/0.215/ 0.25 mg-25 mcg tablet norgestimat Yes [id number] 1{tbl} Take 1 Univers e-ethinyl 6-05 tablet by ity o f estradiol 00:00: mouth [place] (ORTHO 00 daily. [facility], ,) 0.18/0.215/ 0.25 mg-25 mcg tablet norgestimat 2020- No [id number] 1{tbl} Take 1 Univers e-ethinyl 6-05 10-11 tablet by ity of estradiol 00:00: 00:00 mouth [place] (ORTHO 00 :00 daily. [facility], 28,) 0.18/0.215/ 0.25 mg-25 mcg tablet ibuprofen [...] PAIN CONTROL No known No Univers medications [facility] No known No Univers medications [facility] Immunizations Ordered Filled Immunization Date Status Comments [facility] e Immunization Name Name Influenza Four-QIV 2021-09-[address] [facility] PF 6+MO IM ([id number]) 00:00:00 [facility] Influenza Four-QIV 2021-09-[address] [facility] PF 6+MO IM ([id number]) 00:00:00 [facility] Influenza Four-QIV 2021-09-[address] [facility] PF 6+MO IM ([id number]) 00:00:00 [facility] [id number] 2021-08-31 Completed Memor ial [place] RNA-1273vaxMODERNA 00:00:00 [id number] 2021-08-31 Completed Memor ial [place] RNA-1273vaxMODERNA 00:00:00 [id number] 2020-11-18 Completed Memor ial [place] RNA-1273vaxMODERNA 00:00:00 [id number]-19m 2020-11-18 Completed Memor ial [place] RNA-1273vaxMODERNA 00:00:00 HPV9 2019-03-04 Completed University of 00:00:00 [facility] HPV9 2019-03-04 Completed University of 00:00:00 [facility] HPV9 2019-03-04 Completed University of 00:00:00 [facility] HPV9 2019-03-04 Completed University of 00:00:00 [facility] HPV9 2019-03-04 Completed University of 00:00:00 [facility] HPV9 2019-03-04 Completed University of 00:00:00 [facility] HPV9 2019-03-04 Completed University of 00:00:00 [facility] HPV9 2019-03-04 Completed University of 00:00:00 [facility] HPV9 2019-01-14 Completed University of 00:00:00 [facility] HPV9 2019-01-14 Completed University of 00:00:00 [facility] HPV9 2019-01-14 Completed University of 00:00:00 [facility] HPV9 2019-01-14 Completed University of 00:00:00 [facility] HPV9 2019-01-14 Completed University of 00:00:00 [facility] HPV9 2019-01-14 Completed University of 00:00:00 [facility] HPV9 2019-01-14 Completed University of 00:00:00 [facility] HPV9 2019-01-14 Completed University of 00:00:00 [facility] Vital Signs Vital Name Observation Time Observation Value Comments Source HEIGHT 2020-11-08 13:25:00 167.6 cm WEIGHT 2020-11-08 13:25:00 65.318 kg HEIGHT 2020-10-26 11:21:00 167.6 cm WEIGHT 2020-10-26 11:21:00 65.318 kg WEIGHT 2020-08-23 06:03:00 72.122 kg HEIGHT 2020-08-23 06:03:00 167.6 cm HEIGHT 2020-08-22 10:38:00 167.6 cm WEIGHT 2020-08-22 10:38:00 72.122 kg HEIGHT 2020-11-29 23:55:00 167.6 cm WEIGHT 2020-11-29 23:55:00 64.864 kg HEIGHT 2022-04-25 19:29:00 167.6 cm WEIGHT 2022-04-25 19:29:00 75.751 kg HEIGHT 2022-04-25 19:29:00 167.6 cm WEIGHT 2022-04-25 19:29:00 75.751 kg Systolic blood 2022-02-27 20:00:23 124 mm[Hg] Univer sity of pressure [facility] Diastolic blood 2022-02-27 20:00:23 81 mm[Hg] Unive rsity of [facility] Heart rate 2022-02-27 20:00:23 76 /min [facility]i ty [facility] [place] [facility] Respiratory rate 2022-02-27 20:00:23 18 /min [facility] O[facility] saturation in 2022-02-27 20:00:23 100 /min University of Arterial blood by [facility] Pulse oximetry Branch Body temperature 2022-02-27 18:26:00 37.06 Sheree [facility] [place] [facility] Body height 2022-02-27 18:26:00 167.6 cm Universi ty [facility] [place] Body weight 2022-02-27 18:26:00 79.379 kg Universi ty [facility] BMI 2022-02-27 18:26:00 28.25 kg/m2 [facility] Branch Systolic blood 2022-01-25 17:00:00 120 mm[Hg] Univer sity of [facility] Diastolic blood 2022-01-25 17:00:00 73 mm[Hg] Unive rsity of pressure [facility] Branch Heart rate 2022-01-25 17:00:00 63 /min [facility] Respiratory rate 2022-01-25 17:00:00 18 /min [facility] Oxygen saturation in 2022-01-25 17:00:00 98 /min University of Arterial blood by [facility] Pulse oximetry Branch Body temperature 2022-01-25 14:20:00 37.56 Sheree [facility] Body height 2022-01-25 14:20:00 167.6 cm [facility] Body weight 2022-01-25 14:20:00 79.833 kg [facility]i [facility] BMI 2022-01-25 14:20:00 28.41 kg/m2 Universi [facility] HEIGHT 2021-11-05 21:55:00 167.6 cm [...] 17:30:00 116 mm[Hg] Univer sity of pressure [facility] Diastolic blood 2021-04-03 17:30:00 58 mm[Hg] Unive rsity of [facility] Heart rate 2021-04-03 17:30:00 62 /min [facility] Respiratory rate 2021-04-03 17:30:00 17 /min [facility] Oxygen saturation in 2021-04-03 17:30:00 100 /min University of Arterial blood by [place] [employer] [facility] Pulse oximetry Branch Body temperature 2021-04-03 16:14:00 37.17 Sheree Univ ersity of [facility] Body height 2021-04-03 16:14:00 167.6 cm [facility] [place] [facility] [place] Body weight 2021-04-03 16:14:00 73.483 kg Universi ty of [facility] BMI 2021-04-03 16:14:00 26.15 kg/m2 [facility] [place] [facility] [place] HEIGHT 2020-11-29 23:55:00 167.6 cm WEIGHT 2020-11-29 23:55:00 64.864 kg HEIGHT 2020-11-08 13:25:00 167.6 cm WEIGHT 2020-11-08 13:25:00 65.318 kg HEIGHT 2020-10-26 11:21:00 167.6 cm WEIGHT 2020-10-26 11:21:00 65.318 kg WEIGHT 2020-08-23 06:03:00 72.122 kg HEIGHT 2020-08-23 06:03:00 167.6 cm HEIGHT 2020-08-22 10:38:00 167.6 cm WEIGHT 2020-08-22 10:38:00 72.122 kg Systolic blood 2020-05-22 16:36:00 121 mm[Hg] Univer sity of [facility] Diastolic blood 2020-05-22 16:36:00 85 mm[Hg] [facility] 2020-05-22 16:36:00 62 /min Universi ty of [facility] Respiratory rate 2020-05-22 16:36:00 16 /min [facility] Oxygen saturation in 2020-05-22 16:36:00 100 /min University of Arterial blood by [facility] juany Pulse oximetry Branch Body temperature 2020-05-22 15:02:00 35.89 Sheree Univ ersity of [facility] Body weight 2020-05-22 15:02:00 74.844 kg [facility]i ty [facility] [place] [facility] [place] BMI 2020-05-22 15:02:00 26.63 kg/m2 Universi ty of [facility] Systolic blood 2020-05-22 16:36:00 121 mm[Hg] Univer sity of [facility] Diastolic blood 2020-05-22 16:36:00 85 mm[Hg] Unive rsity of [facility] Heart rate 2020-05-22 16:36:00 62 /min [facility] Respiratory rate 2020-05-22 16:36:00 16 /min [facility] Oxygen saturation in 2020-05-22 16:36:00 100 /min [facility] Arterial blood by [facility] Pulse oximetry Branch Body temperature 2020-05-22 15:02:00 35.89 Sheree [facility] Body weight 2020-05-22 15:02:00 74.844 kg [facility] BMI 2020-05-22 15:02:00 26.63 kg/m2 [facility] Oxygen saturation in 2022-04-25 19:31:00 99 /min [facility] Arterial blood by Medical nter Pulse oximetry Systolic blood 2022-04-25 19:29:00 113 mm[Hg] [facility] Diastolic blood 2022-04-25 19:29:00 76 mm[Hg] [facility] Heart rate 2022-04-25 19:29:00 75 /min [place] [facility] Body temperature 2022-04-25 19:29:00 37.06 Sheree [facility] Respiratory rate 2022-04-25 19:29:00 17 /min [facility] Body height 2022-04-25 19:29:00 167.6 cm [facility] Body weight 2022-04-25 19:29:00 75.751 kg [facility] BMI 2022-04-25 19:29:00 26.95 kg/m2 [facility] Heart Rate 2021-12-06 13:04:21 [facility] [place] Respitory Rate 2021-12-06 13:04:21 Gianna [place] Diastolic (mm Hg) 2021-12-06 13:04:03 Mem [facility] [place] Heart Rate 2021-12-06 13:04:03 [facility] [place] Systolic (mm Hg) 2021-12-06 13:04:03 Devin rial [place] Temperature Oral (F) 2021-12-06 13:03:39 98 F [facility] Heart Rate 2021-12-06 08:25:08 [facility] [place] Respitory Rate 2021-12-06 08:25:08 Memori al [place] Systolic (mm Hg) 2021-12-06 08:24:53 Devin rial [place] Diastolic (mm Hg) 2021-12-06 08:24:53 [facility] [place] Temperature Oral (F) 2021-12-06 08:24:27 98.2 F [facility] [place] Respitory Rate 2021-12-06 04:07:25 Memori al [place] Systolic (mm Hg) 2021-12-06 04:06:51 Devin [facility] [place] Diastolic (mm Hg) 2021-12-06 04:06:51 Mem orial [place] Temperature Oral (F) 2021-12-06 04:06:42 98.3 F [facility] [place] Height 2021-12-06 02:26:00 165.1 cm [facility] [place] Weight 2021-12-06 02:26:00 [facility] [place] BMI Calculated 2021-12-06 02:26:00 Memori al [place] Weight 2021-12-05 15:35:00 [facility] [place] BMI Calculated 2021-12-05 15:35:00 Gianna al [place] Height 2021-12-04 19:52:[address] [facility] Systolic blood 2021-11-06 02:49:00 121 mm[Hg] [facility] Diastolic blood 2021-11-06 02:49:00 86 mm[Hg] [facility] Heart rate 2021-11-06 02:49:00 83 /min [facility] Body temperature 2021-11-06 02:49:00 36.89 Sheree [facility] Respiratory rate 2021-11-06 02:49:00 15 /min [facility] Oxygen saturation in 2021-11-06 02:49:00 99 /min [facility] Arterial blood by Medical Ce nter Pulse oximetry Body height 2021-11-05 21:55:00 167.6 cm [facility] Body weight 2021-11-05 21:55:00 78.019 kg [facility] BMI 2021-11-05 21:55:00 27.76 kg/m2 DEAN Aguirre [facility] Procedures Procedure Date / Time Performing Clinician Source Performed REFERRAL- REQUEST/RESPONSE 2022-04-27 05:01:00 Doctor Fidencio [facility] [place] [facility] [place] POCT TEST 2022-02-27 19:01:00 Capo Lobo [facility] TROPONIN I 2022-02-27 18:57:00 Singer [facility] COMP. METABOLIC PANEL 2022-02-27 18:57:00 Singer [facility] ([id number]) Medical Branch CBC WITH DIFF 2022-02-27 18:57:00 Lobo [facility] URINALYSIS 2022-02-27 18:57:00 [facility] COVID-19 (ID NOW RAPID 2022-02-27 18:57:00 [facility] XR CHEST 1 VW 2022-02-27 18:40:16 Singer [facility] CONSENT/REFUSAL FOR 2022-02-27 18:15:15 Doctor Fidencio [facility] KINASE 2022-01-25 14:41:00 Petrona Pan [facility] MAGNESIUM 2022-01-25 14:41:00 Petrona Pan [facility] COMP. METABOLIC PANEL 2022-01-25 14:41:00 Petrona Pan [facility] ([id number]) [facility] [place] CBC WITH DIFF 2022-01-25 14:41:00 ePtrona Pan [facility] URINALYSIS 2022-01-25 14:38:00 Petrona Pan [facility] NOTICE OF PRIVACY 2022-01-25 14:16:02 Doctor Fidencio [facility] PRACTICES [place] [facility] [place] CONSENT/REFUSAL FOR 2022-01-25 14:11:03 Doctor Fidencio [facility] DIAGNOSIS AND TREATMENT [place] [facility] [place] CT BRAIN WITHOUT IV 2021-11-06 00:08:00 [facility] CT SPINE CERVICAL WITHOUT 2021-11-06 00:08:00 Susanna [facility] CONTRAST Center ECG 12-LEAD 2021-11-05 22:40:48 Unknown, Hl7 [facility] ECG 12-LEAD 2021-11-05 22:40:48 Susanna [facility] ECG 12-LEAD 2021-11-05 22:40:48 Unknown, Hl7 [facility] CBC W/PLT COUNT & AUTO 2021-11-05 22:38:00 Susanna Swink Cristine [facility] COMPREHENSIVE METABOLIC 2021-11-05 22:38:00 May Mullins [facility] PANEL [place] HCG, QUANTITATIVE, 2021-11-05 22:38:00 Susanna [facility] LACTIC ACID, VENOUS 2021-11-05 22:38:00 Susanna [facility] HIGH SENSITIVITY TROPONIN 2021-11-05 22:38:00 Susanna May Cristine [facility] I [place] CBC W/PLT COUNT & AUTO 2021-11-05 22:38:00 Susanna [facility] EKG-SCANNED 2021-11-05 00:00:00 Provider [facility] Scanning Center CBC W/PLT COUNT & AUTO 2021-09-04 04:15:00 Sindhu Medeiros [facility] BASIC METABOLIC PANEL (7) 2021-09-04 04:15:00 Sindhu Medeiros [facility] MAGNESIUM 2021-09-04 04:15:00 Sindhu Medeiros [facility] C-REACTIVE PROTEIN 2021-09-04 04:15:00 Sindhu Medeiros [facility] ANTI-NUCLEAR ANTIBODY 2021-09-04 04:15:00 Sindhu Medeiros [facility] (ROSI) Center CBC W/PLT COUNT & AUTO 2021-09-04 04:15:00 Sindhu Medeiros [facility] BLOOD CULTURE 2021-09-04 04:14:00 Sindhu Medeiros [facility] CTA BRAIN 2021-09-03 18:38:00 Bhanu Mckenziehammad [facility] CBC W/PLT COUNT & AUTO 2021-09-03 04:45:00 Sindhu Medeiros [facility] BASIC METABOLIC PANEL (7) 2021-09-03 04:45:00 Sindhu Medeiros [facility] MAGNESIUM 2021-09-03 04:45:00 Sindhu Medeiros [facility] CBC W/PLT COUNT & AUTO 2021-09-03 04:45:00 Sindhu Medeiros [facility] 2D ECHO W/ DOPPLER 2021-09-02 17:12:55 [facility] TROPONIN I 2021-09-02 06:46:00 [facility] TROPONIN I 2021-09-02 03:53:00 [facility] BASIC METABOLIC PANEL (7) 2021-09-02 03:53:00 [facility] LIPID PANEL 2021-09-02 03:53:00 [facility] PROTHROMBIN TIME/INR 2021-09-02 03:53:00 [facility] MAGNESIUM 2021-09-02 03:53:00 [facility] PHOSPHORUS 2021-09-02 03:53:00 [facility] CBC W/PLT COUNT & AUTO 2021-09-02 03:53:00 [facility] TSH/FREE T4 IF INDICATED 2021-09-02 03:53:00 [facility] HEMOGLOBIN A1C 2021-09-02 03:53:00 [facility] FERRITIN 2021-09-02 03:53:00 [facility] IRON, TIBC, % SAT. 2021-09-02 03:53:00 [facility] (WITHOUT FERRITIN) [facility] W/PLT COUNT & AUTO 2021-09-02 03:53:00 [facility] DIFFERENTIAL [facility] MR BRAIN WITH & WITHOUT IV 2021-09-02 00:00:00 Kailey Juárez [facility] CONTRAST [facility] URINALYSIS W/ MICROSCOPIC 2021-09-01 22:32:00 Kailey Juárez [facility] RAPID DRUG SCREEN, URINE 2021-09-01 22:32:00 [facility] US PELVIS WITH ENDOVAG 2021-09-01 20:25:00 Kailey Juárez [facility] WITH DOPPLER [facility] CT BRAIN WITHOUT IV 2021-09-01 18:12:00 Kailey Juárez [facility] CONTRAST [facility] SARS-COV2/RT-PCR ([facility] & 2021-09-01 18:01:00 Kailey Juárez [facility] REF LABS) [facility] CBC W/PLT COUNT & AUTO 2021-09-01 17:53:00 [facility] BASIC METABOLIC PANEL (7) 2021-09-01 17:53:00 Kailey Juárze [facility] TROPONIN I 2021-09-01 17:53:00 Kailey Juárez [facility] D-DIMER 2021-09-01 17:53:00 Kailey Juárez [facility] CBC W/PLT COUNT & AUTO 2021-09-01 17:53:00 Kailey Juárez [facility] DIFFERENTIAL [facility] XR CHEST 1 VIEW PORTABLE / 2021-09-01 17:48:00 Kailey Juárez [facility] BEDSIDE [facility] ED ECG INTERPRETATION 2021-09-01 17:35:00 Kailey Juárez [facility] EKG-SCANNED 2021-09-01 00:00:00 ProviderNate [facility] URINALYSIS 2021-04-03 16:46:00 Marli Nixon [facility] LIPASE 2021-04-03 16:36:00 [facility] 2021-04-03 16:36:00 Hussian Guthrie [facility] ([id number]) (ALB,T.PRO,BILI Medical Branch T,BU/BC,ALT,AST,ALK PHOS) BASIC METABOLIC PANEL (NA, 2021-04-03 16:36:00 Hussain [facility] K, CL, CO2, GLUCOSE, BUN, Medica l Branch CREATININE, CA) CBC WITH DIFF 2021-04-03 16:36:00 Hussain [facility] CONSENT/REFUSAL FOR 2021-04-03 16:08:40 Doctor Unassigned, [facility] DIAGNOSIS AND TREATMENT [place] [facility] HYSTERECTOMY 2020-11-08 05:00:00 [facility] spencer CHOLECYSTECTOMY 2020-07-31 06:00:00 [facility] XR CHEST 1 VW 2020-05-22 15:46:02 Ana Boo [facility] COVID-19 (ID NOW RAPID 2020-05-22 15:32:00 Ana Boo [facility] TESTING) Medical Branch LIPASE 2020-05-22 15:21:00 Oren Young [facility] TROPONIN I 2020-05-22 15:21:00 Oren Young [facility] COMP. METABOLIC PANEL 2020-05-22 15:21:00 Oren Young [facility] ([id number]) Medical Branch CBC WITH DIFF 2020-05-22 15:21:00 Oren Young [facility] PROTHROMBIN TIME / INR 2020-05-22 15:21:00 Oren Young [facility] D-DIMER 2020-05-22 15:21:00 Ana Boo [facility] ACTIVATED PARTIAL THRMPLAS 2020-05-22 15:21:00 Young, O[facility] URINALYSIS 2020-05-22 15:21:00 Oren Young [facility] POCT TEST 2020-05-22 15:21:00 Oren Young [facility] EKG-12 LEAD 2020-05-22 15:08:07 Oren Young [facility] NOTICE OF PRIVACY 2020-05-22 14:53:53 Doctor Unassigned, [facility] PRACTICES [place] [facility] [place] CONSENT/REFUSAL FOR 2020-05-22 14:52:25 Doctor Unassigned, [facility] DIAGNOSIS AND TREATMENT [place] [facility] [place] Plan of Care Planned Activity Planned Date Details Comments Source Future Scheduled 2022-04-13 [facility] 17:39:34 VACCINES (1 of 3 - 3-dose series) [code = HEPATITIS B VACCINES (1 of 3 - 3-dose series)] Future Scheduled 2022-04-13 [facility] 17:39:34 (#1) [code = COVID-19 VACCINE (#1)] Future Scheduled 2022-04-13 Hepatitis C [facility] Test 17:39:34 screening (procedure) [code = 936658234] Future Scheduled 2022-04-13 [facility] Test 17:39:34 malignant neoplasm of cervix (procedure) [code = 435233355] Future Scheduled 2022-04-13 [facility]ZA [facility]ACCINE [facility] Test 17:39:34 [code = INFLUENZA VACCINE] Future Scheduled 2022-04-13 [facility]ITIS [facility] 17:39:34 VACCINES (1 of 3 - 3-dose series) [code = HEPATITIS B VACCINES (1 of 3 - 3-dose series)] Future Scheduled 2022-04-13 COVID-[address] [facility] Test 17:39:34 (#1) [code = COVID-19 VACCINE (#1)] Future Scheduled 2022-04-13 [facility] 17:39:34 screening (procedure) [code = 936457607] Future Scheduled 2022-04-13 [facility] Test 17:39:34 malignant neoplasm of cervix (procedure) [code = 381711077] Future Scheduled 2022-04-13 [facility]INE [facility] 17:39:34 [code = INFLUENZA VACCINE] Future Scheduled 2022-04-13 [facility]ITIS B [facility] 17:39:34 VACCINES (1 of 3 - 3-dose series) [code = HEPATITIS B VACCINES (1 of 3 - 3-dose series)] Future Scheduled 2022-04-13 COVID-[address] [facility] Test 17:39:34 (#1) [code = COVID-19 VACCINE (#1)] Future Scheduled 2022-04-13 [facility] 17:39:34 screening (procedure) [code = 399699822] Future Scheduled 2022-04-13 [facility] Test 17:39:34 malignant neoplasm of cervix (procedure) [code = 008805337] Future Scheduled 2022-04-13 [facility] 17:39:34 [code = INFLUENZA VACCINE] Future Scheduled 2022-04-[address] [facility] Test 00:00:00 (#1) [code = [facility] INFLUENZA VACCINE (#1)] Future Scheduled 2022-04-[address] [facility] Test 00:00:00 (#1) [code = [facility] INFLUENZA VACCINE (#1)] Future Scheduled 2022-04-[address] [facility] Test 00:00:00 (#1) [code = [facility] INFLUENZA VACCINE (#1)] Future Scheduled [address] [facility] Test 00:00:00 malignant neoplasm Medical C enter of cervix (procedure) [code = 351619651] Future Scheduled [address] [facility] Test 00:00:00 malignant neoplasm Medical C enter of cervix (procedure) [code = 669840213] Future Scheduled [address] [facility] Test 00:00:00 malignant neoplasm Medical C enter of cervix (procedure) [code = 396741528] Future Scheduled 2012 DTAP/TDAP/TD [facility] [code = [facility] Center COVID-19 VACCINE (#1)] Encounters Start End Encounter Admission Attending Care Care Encounter Source Date/Time Date/Time Type Type Clinicians Facility Department ID 2022-01-04 Outpatient [facility] [id number] [place] 11:31:03 [id number] [facility] 2021-06-12 Emergency [facility] [id number] Univers [facility] 2021-06-09 Emergency [facility] [id number] Univers 22:15:34 [facility] 2021-05-20 Outpatient JUAN [facility] Surgery [id number] [facility] 08:16:10 [place] 2021-05-19 Outpatient JUAN [facility] Surgery [id number] [facility] 22:29:12 [place] 2020-11-29 Inpatient ER JUAN [facility] [id number] [facility] 23:35:00 [facility] 2022-05-08 2022-05-08 Outpatient MAITE MONTERO [facility] [id number] Univers 15:00:00 15:00:00 [facility] [id number] [facility] 2022-04-27 2022-04-27 Orders Doctor ZORA [id number] Univers 00:00:00 00:00:00 Only Unassigned, KIRA [id number] [place] [address] [id number] [place] [address] Branch 2022-04-25 2022-04-25 Emergency ER MARCUM, [facility] Emergency [id number] [facility] 19:50:00 20:03:00 [facility] 2022-04-25 2022-04-25 Emergency Marcum, [facility] [id number] [facility] 19:50:00 20:03:00 [facility] 2022-02-27 2022-02-27 Emergency X [facility] ERT [id number] Univers 13:28:00 15:09:00 [facility] 2022-02-27 2022-02-27 Emergency [facility] [id number] Univers 13:28:00 15:09:00 Capo CLEANING [id number] i ty [facility] 4.2.7.2.686 [facility] [id number] [address] 2022-01-25 2022-01-25 Emergency [facility] [id number] Univers 09:24:00 12:05:00 PETRONA [facility] 2022-01-25 2022-01-25 [facility] [id number] Univers 09:24:00 12:05:00 Petrona CLEANING [id number] ity [facility] 4.2.[address] [place] [id number] 2021-12-05 2021-12-06 Inpatient nullFlavo [facility] [id number] Memoria 15:12:00 16:35:00 cristine Lundberg 00 [facility] 2021-12-05 2021-12-06 Inpatient [facility] [id number] Memoria 15:12:00 16:35:00 [place] [facility] Cindy nn 2021-12-05 2021-12-06 Inpatient JUAN, [facility]FB [facility] 7500 [facility] 10:12:00 11:35:00 BEATRIZ 2021-12-05 2021-12-06 Outpatient Juan, [facility] S [id number] 10:12:00 11:35:00 Beatriz L 00 2021-11-05 2021-11-06 Emergency ER HARRING, [facility] Emergency [id number] SLE 22:00:00 02:50:00 CORVALLIS 2021-11-05 2021-11-06 Emergency ER [facility], [facility] [id number] 22:00:00 02:50:00 [facility] 2021-11-05 2021-11-06 Emergency [facility], [facility] [id number] 22:00:00 02:50:00 [facility] 2021-11-05 2021-11-05 Outpatient [facility] [id number] [facility] 00:00:00 23:59:00 Marissa Medicin e 2021-11-05 2021-11-05 Orders [facility] [id number] 00:00:00 00:00:00 Only [facility] 2021-11-05 2021-11-05 Travel [facility] [id number] [facility] 00:[facility]00 00:00:00 [facility] 2021-11-05 2021-11-05 Orders [facility] [id number] 00:00:00 00:00:00 Only [facility] 2021-11-05 2021-11-05 Travel [facility] [id number] [facility] 00:[facility]00 00:00:00 [facility] 2021-09-01 2021-09-04 Hospital ER Katerina Raymundo Bowling [facility] [id number] 17:19:00 15:02:00 Encounter Tiffanie [facility] 2021-09-01 2021-09-04 Inpatient [facility] [id number] [facility] 17:19:00 15:02:00 [facility] 2021-09-01 2021-09-04 [facility] Raymundo Borges [facility] [id number] 17:19:00 15:02:00 Encounter Tiffanie Morgan kuldip Eliciacelestino [facility] 2021-09-02 2021-09-02 Travel [facility] [id number] [facility] 00:[facility]00 00:00:00 [facility] 2021-09-02 2021-09-02 Travel [facility] [id number] [facility] 00:00:00 00:00:00 [facility] 2021-04-03 2021-04-03 Emergency Nixon, [facility] [id number] Univers 11:16:00 13:07:00 Marli Cleaning 350.1.13.10 i ty of [place] 4.2.7.2.686 [facility] [id number] [facility] 084 Branch 2021-04-03 2021-04-03 Orders Doctor ZORA [id number] [id number] Univers 00:00:00 00:00:00 Only Unassigned, KIRA [id number] ity [place] [facility] 4.2.7.2.686 [facility] [id number] [facility] 009 Branch 2020-11-21 2020-11-21 Emergency ER [facility] Emergency [id number] [facility] 15:47:00 15:47:00 2020-11-03 2020-11-03 Outpatient EL [facility] [id number] [facility] 00:00:00 00:00:00 2020-10-22 2020-10-22 Emergency [place] [id number] [place] 00:00:00 00:00:00 RADHA rodrigues 2020-08-19 2020-08-19 Outpatient EL [facility] [id number] [facility] 00:00:00 00:00:00 2020-08-16 2020-08-16 Outpatient HIDALGO, [facility] [id number] [place] 00:00:00 00:00:00 SYEDA [address] 2020-08-10 2020-08-10 Emergency ANA, [facility] [id number] [place] 00:00:00 00:00:00 ERLINDA 417 Method i 2020-07-21 2020-07-23 Inpatient , [facility] [id number] [place] 00:00:00 00:00:00 SIDRAH [address] 2020-07-12 2020-07-12 Outpatient GWEN, [facility] [id number] [place] 00:00:00 00:00:00 SYEDA 514 [address] violet 2020-07-05 2020-07-05 Emergency TANYA BARTON [facility] [id number] [place] 00:00:00 00:00:00 916 Method i 2020-05-22 2020-05-22 Outpatient R EMA [facility] [id number] [facility] 13:30:00 13:30:00 ANA [id number] ity of [facility] 2020-05-22 2020-05-[address] [facility] [id number] [facility] 10:05:00 12:50:00 Ana Cleaning 350.1.13.10 ity of [place] 4.2.7.2.686 [facility] [id number] [facility] 084 Branch 2020-05-22 2020-05-[address] [facility] [id number] 10:05:00 12:50:00 Ana Cleaning 350.1.13.10 [place] 4.2.7.2.686 [place] [id number] 2020-05-22 2020-05-22 Orders Doctor BLAKELY [id number] [id number] Univers 00:00:00 00:00:00 Only Unassigned, KIRA 350.1.13.[address] [place] 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 4.2.7.2.686 Biju as MATERNAL [id number] Med ical & CHILD [address] [place] [address] 2019-03-12 2019-03-12 Telephone [facility] 1.2.840.114 [id number] 00:00:00 00:00:00 Lauren Benitez GROUND WATER TECHNICIAN 350.1.13.10 [facility] 4.2.7.2.686 MATERNAL [id number] & CHILD [address] [place] [address] Results Test Description Test Time Test Comments Results Result Comments Source TROPONIN I 2022-02-27 19:33:51 Test Item Value Reference Range Interpretation Comme nts TROPONIN I (test code = 0.003 ng/mL See_Comment [Au tomated message] The [id number]) system which ge nerated this result tra [...] biotin. Lab Interpretation Normal (test code = 34646-1) [facility] WITH [id number] 19:24:09 Test Item Value Reference Range Interpretation [...] RDW-SD (test code = 40.0 fL 39-49.9 46184-9) RDW-CV (test code = 14.1 % 12-15.5 788-0) PLT (test code = See_Comment [Automated 777-3) message] The sy stem which generated this result transmitted reference range : 166 - 358 10*3/ ?L. The reference r ryann was not used to interpret this result as normal/abnormal . MPV (test code = 10.4 fL 9.5-12.9 64992-1) NRBC/100 WBC (test See_Comment [Automat ed code = 7582711544) message] The system which generated this result transmitted reference range : 0.0 - 10.0 /100 WBCs. The refer ence range was not u sed to interpret th is result as normal/abnormal . NRBC x10^3 (test code See_Comment [Auto mated = 2716825842) message] The s ystem which generated this result transmitted reference range : 10*3/?L. The reference range was not used to interpret this result as normal/abnormal . GRAN MAT (NEUT) % 66.3 % (test code = 770-8) IMM GRAN % (test code 0.20 % = 6329845666) LYMPH % (test code = 24.6 % 736-9) MONO % (test code = 7.2 % 5905-5) EOS % (test code = 0.9 % 713-8) BASO % (test code = 0.8 % 706-2) GRAN MAT x10^3(ANC) 4.25 10*3/uL 1.88-7.09 (test code = 7587469865) IMM GRAN x10^3 (test 0-0.06 code = 2595708789) LYMPH x10^3 (test code 1.58 10*3/uL 1.32-3.29 = 731-0) MONO x10^3 (test code 0.46 10*3/uL 0.33-0.92 = 742-7) EOS x10^3 (test code = 0.06 10*3/uL 0.03-0.39 711-2) BASO x10^3 (test code 0.05 10*3/uL 0.01-0.07 = 704-7) Lab Interpretation Abnormal (test code = 59616-9) [facility] (76516[facility]2022-02-27 19:23:49 Test Item Value Reference Range Interpretation Comments NA (test code = 142 mmol/L 135-145 7544695136) K (test code = 3.7 mmol/L 3.5-5 6251341244) CL (test code = 104 mmol/L 98-108 7466067159) CO2 TOTAL (test code 30 mmol/L 23-31 = 9409732016) AGAP (test code = 2-16 4528398896) BUN (test code = 9 mg/dL 7-23 3242271033) GLUCOSE (test code = 109 mg/dL 70-110 1879701159) CREATININE (test code 0.66 mg/dL 0.5-1.04 = 5120620019) TOTAL BILI (test code 0.3 mg/dL 0.1-1.1 = 6058715507) CALCIUM (test code = 9.3 mg/dL 8.6-10.6 2839624100) T PROTEIN (test code 7.2 g/dL 6.3-8.2 = 5044609136) ALBUMIN (test code = 4.1 g/dL 3.5-5 8282873911) ALK PHOS (test code = 78 U/L 34-122 6468536742) ALTv (test code = 25 U/L 5-35 1742-6) AST(SGOT) (test code 27 U/L 13-40 = 9100042875) eGFR (test code = mL/min/1.73m2 4967699757) VERITO (test code = VERITO) Association of [...] or urine or abnormalities in imaging tests). [facility] [id number] 19:01:00 Test Item Value Reference Range Interpretation Comments POCT PREG (test code = 1605) negative On board controls acceptable with present C Line (test code = 3574) POCT PREG LOT # (test code = 3575) [id number] POCT PREG TEST DATE (test 06/11/23 code = 3576) Lab Interpretation (test code = Normal 76789-9) [facility] METABOLIC PANEL (07262)2022-01-25 15:09:17 Test Item Value Reference Range Interpretation Comments NA (test code = 140 mmol/L 135-145 5483826338) K (test code = 3.7 mmol/L 3.5-5.0 7653100164) CL (test code = 107 mmol/L 98-108 8194925063) CO2 TOTAL (test code = 28 mmol/L 23-31 1684011676) AGAP (test code = 2-16 9221120049) BUN (test code = 10 mg/dL 7-23 7896766991) GLUCOSE (test code = 115 mg/dL 70-110 H 4124861685) CREATININE (test code = 0.67 mg/dL 0.50-1.04 8131171899) TOTAL BILI (test code = 0.6 mg/dL 0.1-1.5 2841266450) CALCIUM (test code = 9.2 mg/dL 8.6-10.6 9312626960) T PROTEIN (test code = 7.2 g/dL 6.3-8.2 5827815638) ALBUMIN (test code = 4.1 g/dL 3.5-5.0 6522997888) ALK PHOS (test code = 72 U/L 34-122 8925634083) ALTv (test code = 18 U/L 5-35 1742-6) AST(SGOT) (test code = 29 U/L 13-40 5163379832) eGFR (test code = mL/min/1.73m2 7434768758) VERITO (test code = VERITO) Association of [...] tests). Lab Interpretation Abnormal (test code = 89544-0) [facility]17 Test Item Value Reference Range Interpretation Comments MAGNESIUM (test code = 3760781210) 1.7 mg/dL 1.7-2.4 Lab Interpretation (test code = Normal 44379-5) [facility] [id number] 15:08:57 Test Item Value Reference Range Interpretation Comments CK (test code = 4717296097) 215 U/L 33-194 H Lab Interpretation (test code = Abnormal 16545-1) [facility] WITH HIDV2046-37-68 14:52:13 Test Item Value Reference Range Interpretation Comments WBC (test code = See_Comment [Automated 9282-2) message] The sy stem which generated this result transmitted reference range : 4.30 - 11.10 10*3/?L. The reference range was not used to interpret this result as normal/abnormal . RBC (test code = See_Comment [Automated 326-8) message] The sy stem which generated this [...] RDW-SD (test code = 40.2 fL 39.0-49.9 97291-8) RDW-CV (test code = 14.1 % 12.0-15.5 788-0) PLT (test code = See_Comment [Automated 777-3) message] The sy stem which generated this result transmitted reference range : 166 - 358 10*3/ ?L. The reference r ryann was not used to interpret this result as normal/abnormal . MPV (test code = 10.1 fL 9.5-12.9 62998-4) NRBC/100 WBC (test See_Comment [Automat ed code = 8485128982) message] The system which generated this result transmitted reference range : 0.0 - 10.0 /100 WBCs. The refer ence range was not u sed to interpret th is result as normal/abnormal . NRBC x10^3 (test code <0.01 See_Comment [Auto mated = 1104752804) message] The s ystem which generated this result transmitted reference range : 10*3/?L. The reference range was not used to interpret this result as normal/abnormal . GRAN MAT (NEUT) % 70.4 % (test code = 770-8) IMM GRAN % (test code 0.30 % = 0908720166) LYMPH % (test code = 20.3 % 736-9) MONO % (test code = 6.9 % 5905-5) EOS % (test code = 1.5 % 713-8) BASO % (test code = 0.6 % 706-2) GRAN MAT x10^3(ANC) 5.01 10*3/uL 1.88-7.09 (test code = 1305177314) IMM GRAN x10^3 (test <0.03 0.00-0.06 code = 8269772225) LYMPH x10^3 (test code 1.44 10*3/uL 1.32-3.29 = 731-0) MONO x10^3 (test code 0.49 10*3/uL 0.33-0.92 = 742-7) EOS x10^3 (test code = 0.11 10*3/uL 0.03-0.39 711-2) BASO x10^3 (test code 0.04 10*3/uL 0.01-0.07 = 704-7) Lab Interpretation Abnormal (test code = 87052-8) [facility]2022-04-27 06:18:00 Test Item Value Reference Range Interpretation Comments WBC (test code = WBC) 10.8 3.7-10.4 [facility] CenterLxuiozaAHXJMBERCO4894-11-31 06:18:00 Test Item Value Reference Range Interpretation Comments RBC (test code = RBC) 4.83 4.20-5.40 [place] 006632-04-27 06:18:00 Test Item Value Reference Range Interpretation Comments Hgb (test code = Hgb) 11.9 12.0-16.0 [facility] CenterOsyenwnICBOVHCXNX9965-71-25 06:18:00 Test Item Value Reference Range Interpretation Comments Hct (test code = Hct) 36.9 36.0-48.0 [facility] CenterHbysrdtFQKHPQWELM0160-14-99 06:18:00 Test Item Value Reference Range Interpretation Comments MCV (test code = MCV) 76.4 80.0-98.0 [place] 006632-04-27 06:18:00 Test Item Value Reference Range Interpretation Comments MCH (test code = MCH) 24.6 pg 27.0-31.0 [facility] CenterShauohyJXLMCMQSLY8393-33-23 06:18:00 Test Item Value Reference Range Interpretation Comments MCHC (test code = MCHC) 32.3 32.0-36.0 [facility] CenterFmynrltZIKXRQEJEK8379-68-64 06:18:00 Test Item Value Reference Range Interpretation Comments RDW (test code = RDW) 14.0 11.5-14.5 [place] 006632-04-27 06:18:00 Test Item Value Reference Range Interpretation Comments Platelet (test code = Platelet) 240 133-450 [facility] CenterXbxhxorEXYZJCWQRM7444-23-37 06:18:00 Test Item Value Reference Range Interpretation Comments MPV (test code = MPV) 8.0 7.4-10.4 [place] 006632-04-27 06:18:00 Test Item Value Reference Range Interpretation Comments RBC Morph (test code = Normal (4/27/22 1:18 RBC Morph) AM) [facility] CenterUiypxpcMTNXTKMOYK3453-92-26 06:18:00 Test Item Value Reference Range Interpretation Comments Plt Morph (test code = Normal (12/06/21 1:18 Plt Morph) AM) [place] 006632-04-27 06:18:00 Test Item Value Reference Range Interpretation Comments Segs (test code = Segs) 89.2 45.0-75.0 [place] [address]-04-27 06:18:00 Test Item Value Reference Range Interpretation Comments Lymphocytes (test code = Lymphocytes) 6.3 20.0-40.0 [place] [address]-04-27 06:18:00 Test Item Value Reference Range Interpretation Comments Monocytes (test code = Monocytes) 4.3 2.0-12.0 [place] [address]-04-27 06:18:00 Test Item Value Reference Range Interpretation Comments Basophils (test code = 0.2 See_Comment [Aut omated message] The Basophils) system which ge nerated this result tra nsmitted reference range : <=1.0. The reference r ryann was not used to int erpret this result as normal/abnormal . [place] 006632-04-27 06:18:00 Test Item Value Reference Range Interpretation Comments Neutrophils # (test code = Neutrophils 9.6 1.5-8.1 #) [place] [address]-04-27 06:18:00 Test Item Value Reference Range Interpretation Comments Lymphocytes # (test code = Lymphocytes 0.7 1.0-5.5 #) [place] [address]-04-27 06:18:00 Test Item Value Reference Range Interpretation Comments Monocytes # (test code 0.5 See_Comment [Aut omated message] The = Monocytes #) system which generated this result tra nsmitted reference range : <=0.8. The reference r ryann was not used to int erpret this result as normal/abnormal . [place] 006632-04-27 06:18:00 Test Item Value Reference Range Interpretation Comments Microcyte (test code = 1+ *ABN*(12/06/21 Microcyte) 1:18 AM) [place] 006632-04-27 06:18:00 Test Item Value Reference Range Interpretation Comments WBC (test code = WBC) 10.8 3.7-10.4 [facility] CenterFyynhevRATSPMBCSG2259-81-52 06:18:00 Test Item Value Reference Range Interpretation Comments RBC (test code = RBC) 4.83 4.20-5.40 [place] 006632-04-27 06:18:00 Test Item Value Reference Range Interpretation Comments Hgb (test code = Hgb) 11.9 12.0-16.0 [place] 006632-04-27 06:18:00 Test Item Value Reference Range Interpretation Comments Hct (test code = Hct) 36.9 36.0-48.0 [place] [address]-04-27 06:18:00 Test Item Value Reference Range Interpretation Comments MCV (test code = MCV) 76.4 80.0-98.0 [place] 006632-04-27 06:18:00 Test Item Value Reference Range Interpretation Comments MCH (test code = MCH) 24.6 pg 27.0-31.0 [facility] CenterLxebdyhZUSBWUPBVR0606-76-09 06:18:00 Test Item Value Reference Range Interpretation Comments MCHC (test code = MCHC) 32.3 32.0-36.0 [facility] CenterZnuclgqLPLYKNAXHI8068-31-43 06:18:00 Test Item Value Reference Range Interpretation Comments RDW (test code = RDW) 14.0 11.5-14.5 [facility] CenterXpeuajyHWNCQJNOGX9481-99-87 06:18:00 Test Item Value Reference Range Interpretation Comments Platelet (test code = Platelet) 240 133-450 [facility] CenterGscargsOCKPTZWLBI7622-60-62 06:18:00 Test Item Value Reference Range Interpretation Comments MPV (test code = MPV) 8.0 7.4-10.4 [place] 006632-04-27 06:18:00 Test Item Value Reference Range Interpretation Comments RBC Morph (test code = Normal (12/06/21 1:18 RBC Morph) AM) [facility] CenterZahlfwyFQBLJONCJJ5834-93-65 06:18:00 Test Item Value Reference Range Interpretation Comments Plt Morph (test code = Normal (12/06/21 1:18 Plt Morph) AM) [facility] CenterUwmxetcDFZXVKHDJK5405-48-82 06:18:00 Test Item Value Reference Range Interpretation Comments Segs (test code = Segs) 89.2 45.0-75.0 [place] 006632-04-27 06:18:00 Test Item Value Reference Range Interpretation Comments Lymphocytes (test code = Lymphocytes) 6.3 20.0-40.0 [place] 006632-04-27 06:18:00 Test Item Value Reference Range Interpretation Comments Monocytes (test code = Monocytes) 4.3 2.0-12.0 [place] 006632-04-27 06:18:00 Test Item Value Reference Range Interpretation Comments Basophils (test code = 0.2 See_Comment [Aut omated message] The Basophils) system which ge nerated this result tra nsmitted reference range : <=1.0. The reference r ryann was not used to int erpret this result as normal/abnormal . [place] 006632-04-27 06:18:00 Test Item Value Reference Range Interpretation Comments Neutrophils # (test code = Neutrophils 9.6 1.5-8.1 #) [place] 006632-04-27 06:18:00 Test Item Value Reference Range Interpretation Comments Lymphocytes # (test code = Lymphocytes 0.7 1.0-5.5 #) [facility] CenterQvmcfbzJXQWNIICUK9870-42-70 06:18:00 Test Item Value Reference Range Interpretation Comments Monocytes # (test code 0.5 See_Comment [Aut omated message] The = Monocytes #) system which generated this result tra nsmitted reference range : <=0.8. The reference r ryann was not used to int erpret this result as normal/abnormal . [facility] CenterQkhyzekNIRBNWPDRH2796-75-87 06:18:00 Test Item Value Reference Range Interpretation Comments Microcyte (test code = 1+ *ABN*(12/06/21 Microcyte) 1:18 AM) [place] 006632-04-26 13:19:00 Test Item Value Reference Range Interpretation Comments Microcyte (test code = 1+ *ABN*(12/05/21 Microcyte) 8:19 AM) [facility] CenterGpujzqzWJQYDUWWWB2384-74-83 13:19:00 Test Item Value Reference Range Interpretation Comments WBC (test code = WBC) 4.7 3.7-10.4 [facility] CenterMirvbumPPTATPQZXK7914-18-53 13:19:00 Test Item Value Reference Range Interpretation Comments RBC (test code = RBC) 4.99 4.20-5.40 [facility]VavhpqvENFFDIQAAG8385-29-03 13:19:00 Test Item Value Reference Range Interpretation Comments Hgb (test code = Hgb) 12.5 12.0-16.0 [facility]AokdwucZRWBEKOITY0877-72-29 13:19:00 Test Item Value Reference Range Interpretation Comments Hct (test code = Hct) 38.6 36.0-48.0 [facility] MovfvbeURPFXYQNXO7503-45-57 13:19:00 Test Item Value Reference Range Interpretation Comments MCV (test code = MCV) 77.4 80.0-98.0 [facility]landFpuwxrfSUKERIJTSQ1250-56-14 13:19:00 Test Item Value Reference Range Interpretation Comments MCH (test code = MCH) 25.0 pg 27.0-31.0 [facility]landIoluaddRDCHXEIDVZ6121-15-84 13:19:00 Test Item Value Reference Range Interpretation Comments MCHC (test code = MCHC) 32.2 32.0-36.0 [facility]landQceihwfKYYKIWVFRO1797-50-95 13:19:00 Test Item Value Reference Range Interpretation Comments RDW (test code = RDW) 14.0 11.5-14.5 [facility]landMlfgcnfEZFXYDDHNZ8196-55-73 13:19:00 Test Item Value Reference Range Interpretation Comments Platelet (test code = Platelet) 240 133-450 [facility]landAxjvdijPSUXSHJTZY7853-70-81 13:19:00 Test Item Value Reference Range Interpretation Comments MPV (test code = MPV) 8.1 7.4-10.4 [facility] [employer] IAKIWVD8714-37-65 13:19:00 Test Item Value Reference Range Interpretation Comments ABO/Rh (test code = ABO/Rh) O POS [facility] [employer] UOLRJQK8406-82-59 13:19:00 Test Item Value Reference Range Interpretation Comments Antibody Scrn (test Negative (12/05/21 8:19 code = Antibody Scrn) AM) [facility] [employer] SGMHK6049-36-72 13:19:00 Test Item Value Reference Range Interpretation Comments Glucose Lvl (test code = Glucose Lvl) 88 70-99 [facility] [employer] RZEWB0512-10-54 13:19:00 Test Item Value Reference Range Interpretation Comments BUN (test code = BUN) 11 - [facility] [place]-04-26 13:19:00 Test Item Value Reference Range Interpretation Comments Creatinine Lvl (test code = Creatinine 0.81 0.50-1.40 Lvl) [address]04-26 13:19:00 Test Item Value Reference Range Interpretation Comments Sodium Lvl (test code = Sodium Lvl) 136 135-145 [place] [address]-04-26 13:19:00 Test Item Value Reference Range Interpretation Comments Potassium Lvl (test code = Potassium 3.5 3.5-5.1 Lvl) [place] 688142-04-26 13:19:00 Test Item Value Reference Range Interpretation Comments Chloride Lvl (test code = Chloride Lvl) 105 95-109 [place] [address]-04-26 13:19:00 Test Item Value Reference Range Interpretation Comments CO2 (test code = CO2) 28 24-32 [place] [address]-04-26 13:19:00 Test Item Value Reference Range Interpretation Comments Calcium Lvl (test code = Calcium Lvl) 8.9 8.5-10.5 [place] 688142-04-26 13:19:00 Test Item Value Reference Range Interpretation Comments AGAP (test code = AGAP) 6.5 10.0-20.0 [place] [address]-04-26 13:19:00 Test Item Value Reference Range Interpretation Comments eGFR (test code = eGFR) 100 [place] [address]-04-26 13:19:00 Test Item Value Reference Range Interpretation Comments Segs (test code = Segs) 57.3 45.0-75.0 [place] [address]-04-26 13:19:00 Test Item Value Reference Range Interpretation Comments Lymphocytes (test code = Lymphocytes) 31.8 20.0-40.[address]04-26 13:19:00 Test Item Value Reference Range Interpretation Comments Monocytes (test code = Monocytes) 6.9 2.0-12.0 [place] [address]-04-26 13:19:00 Test Item Value Reference Range Interpretation Comments Eosinophils (test code = 2.8 See_Comment [A utomated message] The Eosinophils) system which ge nerated this result tra nsmitted reference range : <=4.0. The reference r ryann was not used to int erpret this result as normal/abnormal . [facility]Rvc[facility]glHNFQUZUXWD5575-98-83 13:19:00 Test Item Value Reference Range Interpretation Comments Basophils (test code = 1.2 See_Comment [Aut omated message] The Basophils) system which ge nerated this result tra nsmitted reference range : <=1.0. The reference r ryann was not used to int erpret this result as normal/abnormal . [facility] [employer] OJMJMRE6840-44-49 13:19:00 Test Item Value Reference Range Interpretation Comments ABO/Rh (test code = ABO/Rh) O POS [facility] [employer] [facility] [id number] 13:19:00 Test Item Value Reference Range Interpretation Comments Antibody Scrn (test Negative (12/05/21 8:19 code = Antibody Scrn) AM) [facility] AXAFV8458-03-39 13:19:00 Test Item Value Reference Range Interpretation Comments Glucose Lvl (test code = Glucose Lvl) 88 70-99 [facility] GYPHA4608-68-33 13:19:00 Test Item Value Reference Range Interpretation Comments BUN (test code = BUN) 11 - [facility] [id number] 13:19:00 Test Item Value Reference Range Interpretation Comments Creatinine Lvl (test code = Creatinine 0.81 0.50-1.40 Lvl) [facility] BXDZF4831-33-36 13:19:00 Test Item Value Reference Range Interpretation Comments Sodium Lvl (test code = Sodium Lvl) 136 135-145 [facility] [employer] [id number] 13:19:00 Test Item Value Reference Range Interpretation Comments Potassium Lvl (test code = Potassium 3.5 3.5-5.1 Lvl) [facility] [id number] 13:19:00 Test Item Value Reference Range Interpretation Comments Chloride Lvl (test code = Chloride Lvl) 105 95-109 [facility] [employer] [id number] 13:19:00 Test Item Value Reference Range Interpretation Comments CO2 (test code = CO2) 28 24-32 [facility] [id number] 13:19:00 Test Item Value Reference Range Interpretation Comments Calcium Lvl (test code = Calcium Lvl) 8.9 8.5-10.5 [facility] [place] 460782-04-26 13:19:00 Test Item Value Reference Range Interpretation Comments AGAP (test code = AGAP) 6.5 10.0-20.0 [place] 688142-04-26 13:19:00 Test Item Value Reference Range Interpretation Comments eGFR (test code = eGFR) 100 [place] 006632-04-26 13:19:00 Test Item Value Reference Range Interpretation Comments Segs (test code = Segs) 57.3 45.0-75.0 [place] [address]-04-26 13:19:00 Test Item Value Reference Range Interpretation Comments Lymphocytes (test code = Lymphocytes) 31.8 20.0-40.0 [place] [address]-04-26 13:19:00 Test Item Value Reference Range Interpretation Comments Monocytes (test code = Monocytes) 6.9 2.0-12.0 [place] [address]-04-26 13:19:00 Test Item Value Reference Range Interpretation Comments Eosinophils (test code = 2.8 See_Comment [A utomated message] The Eosinophils) system which ge nerated this result tra nsmitted reference range : <=4.0. The reference r ryann was not used to int erpret this result as normal/abnormal . [place] [address]-04-26 13:19:00 Test Item Value Reference Range Interpretation Comments Neutrophils # (test code = Neutrophils 2.7 1.5-8.1 #) [place] [address]-04-26 13:19:00 Test Item Value Reference Range Interpretation Comments Basophils (test code = 1.2 See_Comment [Aut omated message] The Basophils) system which ge nerated this result tra nsmitted reference range : <=1.0. The reference r ryann was not used to int erpret this result as normal/abnormal . [place] 006632-04-26 13:19:00 Test Item Value Reference Range Interpretation Comments Neutrophils # (test code = Neutrophils 2.7 1.5-8.1 #) [place] [address]-04-26 13:19:00 Test Item Value Reference Range Interpretation Comments Lymphocytes # (test code = Lymphocytes 1.5 1.0-5.5 #) [place] [address]-04-26 13:19:00 Test Item Value Reference Range Interpretation Comments Monocytes # (test code 0.3 See_Comment [Aut omated message] The = Monocytes #) system which generated this result tra nsmitted reference range : <=0.8. The reference r ryann was not used to int erpret this result as normal/abnormal . [facility] CenterYswarimRZESLNSXCL1794-27-77 13:19:00 Test Item Value Reference Range Interpretation Comments Eosinophils # (test code 0.1 See_Comment [A utomated message] The = Eosinophils #) system whic h generated this result tra nsmitted reference range : <=0.5. The reference r ryann was not used to int erpret this result as normal/abnormal . [facility] CenterDexonbkTLJKNUNUGS4630-03-71 13:19:00 Test Item Value Reference Range Interpretation Comments Basophils # (test code 0.1 See_Comment [Aut omated message] The = Basophils #) system which generated this result tra nsmitted reference range : <=0.2. The reference r ryann was not used to int erpret this result as normal/abnormal . [place] 006632-04-26 13:19:00 Test Item Value Reference Range Interpretation Comments Microcyte (test code = 1+ *ABN*(12/05/21 Microcyte) 8:19 AM) [place] [address]-04-26 13:19:00 Test Item Value Reference Range Interpretation Comments WBC (test code = WBC) 4.7 3.7-10.4 [place] 006632-04-26 13:19:00 Test Item Value Reference Range Interpretation Comments RBC (test code = RBC) 4.99 4.20-5.40 [place] 006632-04-26 13:19:00 Test Item Value Reference Range Interpretation Comments Hgb (test code = Hgb) 12.5 12.0-16.0 [place] [address]-04-26 13:19:00 Test Item Value Reference Range Interpretation Comments Hct (test code = Hct) 38.6 36.0-48.0 [place] 006632-04-26 13:19:00 Test Item Value Reference Range Interpretation Comments MCV (test code = MCV) 77.4 80.0-98.0 [place] 006632-04-26 13:19:00 Test Item Value Reference Range Interpretation Comments MCH (test code = MCH) 25.0 pg 27.0-31.0 [facility] CenterXoozysmJMHXFEYMJB7171-91-95 13:19:00 Test Item Value Reference Range Interpretation Comments MCHC (test code = MCHC) 32.2 32.0-36.0 [facility] CenterGakxzghYAFAEZXCTQ7178-70-91 13:19:00 Test Item Value Reference Range Interpretation Comments RDW (test code = RDW) 14.0 11.5-14.5 [facility] CenterKdgljdtGKETWIZABV1611-65-53 13:19:00 Test Item Value Reference Range Interpretation Comments Platelet (test code = Platelet) 240 133-450 [facility] CenterBxtzqznWIKXEMNEJN9604-65-51 13:19:00 Test Item Value Reference Range Interpretation Comments MPV (test code = MPV) 8.1 7.4-10.4 [facility] CenterIrtjzbkGDWICRTWJZ3581-10-77 13:19:00 Test Item Value Reference Range Interpretation Comments Lymphocytes # (test code = Lymphocytes 1.5 1.0-5.5 #) [facility] CenterMzvhgxeKUEDWUGHGH8969-04-39 13:19:00 Test Item Value Reference Range Interpretation Comments Monocytes # (test code 0.3 See_Comment [Aut omated message] The = Monocytes #) system which generated this result tra nsmitted reference range : <=0.8. The reference r ryann was not used to int erpret this result as normal/abnormal . [facility] CenterXwdujdwHVAMHOSVDE5077-04-13 13:19:00 Test Item Value Reference Range Interpretation Comments Eosinophils # (test code 0.1 See_Comment [A utomated message] The = Eosinophils #) system whic h generated this result tra nsmitted reference range : <=0.5. The reference r ryann was not used to int erpret this result as normal/abnormal . [facility] CenterGlzvtytSTGSZNRGGA3488-87-62 13:19:00 Test Item Value Reference Range Interpretation Comments Basophils # (test code 0.1 See_Comment [Aut omated message] The = Basophils #) system which generated this result tra nsmitted reference range : <=0.2. The reference r ryann was not used to int erpret this result as normal/abnormal . [facility], [facility], CERVICAL, WO NTRCTVGS7712-99-55 00:15:00Unlisted Reason for Exam - Click Yes and Enter Reason Below->No [facility] 1995 Sex: [...] the facets. No splaying of the spinous processes.No prevertebral or epidural hematoma is visualized. The occipital condyles are intact. Temporomandibular junctions are unremarkable. No actionable thyroid nodules. No cervical lymphadenopathy. The visualized lung apices are clear. No spinal canal or neural foraminal narrowing. Impression: No acute fracture or malalignment. Signed: Kam Arndt MDRepmiss[facility] Verified Date/Time: 11/06/2021 00:15:51 CT, BRAIN, WITHOUT [id number] 00:13:00Unlisted Reason for Exam - Click Yes and Enter Reason Below->No [facility] SAMEER : 1995 Sex: FFINAL REPORT EXAM/TECHNIQUE: Noncontrast [...] Kam Arndt MDReport Verified Date/Time: 11/06/2021 00:13:35 [facility], quantitative, svobxrnop3176-92-81 23:31:28 Test Item Value Reference Range Interpretation Comments hCG Quant (test code <1 See_Comment [Autom ated = 19639-2) message] The system which generated this result [...] 10,000-100,000 6-8 Weeks 15,000-200,000 2-3 Months 10,000-100,000 [employer] ID - DB Lab Interpretation Normal (test code = 53171-0) [facility], [id number] 23:31:28 Test Item Value Reference Range Interpretation Comments hCG Quant (test code <1 See_Comment [Autom ated = 37701-6) message] The system which generated this result [...] 10,000-100,000 6-8 Weeks 15,000-200,000 2-3 Months 10,000-100,000 [employer] ID - DB Lab Interpretation Normal (test code = 07478-9) [facility], quantitative, [id number] 23:31:28 Test Item Value Reference Range Interpretation Comments hCG Quant (test code <1 See_Comment [Autom ated = 49243-8) message] The system which generated this result [...] 10,000-100,000 6-8 Weeks 15,000-200,000 2-3 Months 10,000-100,000 [employer] ID - DB Lab Interpretation Normal (test code = 70260-5) [facility], QUANTITATIVE, [id number] 23:31:28 Test Item Value Reference Range Interpretation Comments GONADOTROPIN, CHORIONIC (HCG) QUANT < mIU/mL 0-10 (BEAKER) (test code = 649) Non- Females: <10 mIU/mL Females: Gestation Age Reference Range(mIU/mL) 0.2-1 Week 5-50 1-2 Weeks 50-500 2-3 Weeks 100-5,000 3-4 Weeks 500-10,000 4-5 Weeks 1,000-50,000 5-6 Weeks 10,000-100,000 6-8 Weeks 15,000- 200,000 2-3 Months 10,000-100,000 [employer] ID - DBHigh Sens Trop I ([facility]/[place] Only)2021-11-05 23:11:39 Test Item Value Reference Range Interpretation Comments Troponin I HS (test <4 See_Comment [Automa aleks code = 22950-8) message] The system which generated this result transmitted reference range : <=17 pg/ml. The reference range was not used to interpret this result as normal/abnormal . VERITO (test code = [employer] ID - VERITO) DBThe OPHTHALMIC NURSE STAT High Sensitivity Troponin-I results should be used in conjunction with other diagnostic information such as ECG, clinical observations and information, and patient symptoms to aid in the diagnosis of UT. Lab Interpretation Normal (test code = 48628-6) [facility] Only)2021-11-05 23:11:39 Test Item Value Reference Range Interpretation Comments Troponin I HS (test <4 See_Comment [Automa aleks code = 73774-3) message] The system which generated this result transmitted reference range : <=17 pg/ml. The reference range was not used to interpret this result as normal/abnormal . VERITO (test code = [employer] ID - VERITO) DBThe OPHTHALMIC NURSE STAT High Sensitivity Troponin-I results should be used in conjunction with other diagnostic information such as ECG, clinical observations and information, and patient symptoms to aid in the diagnosis of UT. Lab Interpretation Normal (test code = 77098-9) [facility] ([facility]/[place] Only)2021-11-05 23:11:39 Test Item Value Reference Range Interpretation Comments Troponin I HS (test <4 See_Comment [Automa aleks code = 69865-1) message] The system which generated this result transmitted reference range : <=17 pg/ml. The reference range was not used to interpret this result as normal/abnormal . VERITO (test code = [employer] ID - VERITO) DBThe OPHTHALMIC NURSE STAT High Sensitivity Troponin-I results should be used in conjunction with other diagnostic information such as ECG, clinical observations and information, and patient symptoms to aid in the diagnosis of UT. Lab Interpretation Normal (test code = 11784-1) [facility] TROPONIN [id number] 23:11:39 Test Item Value Reference Range Interpretation Comments HIGH SENSITIVITY < pg/ml See_Comment [Automated message] TROPONIN I (test code = The system which [id number]) generated this result transmitted ref erence range: <=17. Th e reference range was not used to interpr et this result as normal/abnormal . [employer] ID - DBThe OPHTHALMIC NURSE STAT High Sensitivity Troponin-I results should be used in conjunctionwith other diagnostic information such as ECG, clinical observations and information, and patient symptoms to aid in the diagnosis of UT.Comprehensive metabolic [id number] 23:05:38 Test Item Value Reference Range Interpretation Comments Protein, Total (test 7.7 See_Comment [Autom ated code = 2885-2) message] The system which generated this result transmit aleks reference range : 6.0 - 8.3 gm/dL . The reference range was not u sed to interpret th is result as normal/abnormal . Albumin (test code = 4.2 g/dL 3.5-5.0 54873-3) Alkaline Phosphatase 80 U/L 40-150 (test code = 6768-6) Total Bilirubin (test 0.4 mg/dL 0.2-1.2 code = 1974-2) Sodium (test code = 138 meq/L 505-768 8891-2) Potassium (test code 3.4 meq/L 3.5-5.1 L = 2823-3) Chloride (test code = 102 meq/L 98-107 5-0) CO2 (test code = 26 meq/L 22-29 2027-9) BUN (test code = 11 mg/dL 7-21 3094-0) Creatinine (test code 0.78 mg/dL 0.57-1.25 = 2160-0) Glucose (test code = 100 mg/dL 70-105 2345-7) Calcium (test code = 9.0 mg/dL 8.4-10.2 77354-5) AST (test code = 22 U/L 5-34 1920-8) ALT (test code = 25 U/L 6-55 1742-6) EGFR (test code = 107 mL/min/1.[place] [address]-9) NOT ACCURATE CREATININE CLEARANCE IN PREDICTING GLOMERULAR FILTRATION RATE . ESTIMATED GFR I S NOT APPLICABLE FOR DIALYSIS PATIEN TS. VERITO (test code = VERITO) [employer] ID - DB Lab Interpretation Abnormal (test code = 21798-3) [facility] HospitalComprehenve metabolic [id number] 23:05:38 Test Item Value Reference Range Interpretation Comments Protein, Total (test 7.7 See_Comment [Autom ated code = 2885-2) message] The system which generated this result transmit aleks reference range : 6.0 - 8.3 gm/dL . The reference range was not u sed to interpret th is result as normal/abnormal . Albumin (test code = 4.2 g/dL 3.5-5.0 08488-6) Alkaline Phosphatase 80 U/L 40-150 (test code = 6768-6) Total Bilirubin (test 0.4 mg/dL 0.2-1.2 code = 1975-2) Sodium (test code = 138 meq/L 744-341 2584-2) Potassium (test code 3.4 meq/L 3.5-5.1 L = 2823-3) Chloride (test code = 102 meq/L 98-107 2075-0) CO2 (test code = 26 meq/L 22-29 2028-9) BUN (test code = 11 mg/dL 7-21 3094-0) Creatinine (test code 0.78 mg/dL 0.57-1.25 = 2160-0) Glucose (test code = 100 mg/dL 70-105 2345-7) Calcium (test code = 9.0 mg/dL 8.4-10.2 66178-7) AST (test code = 22 U/L 5-34 1920-8) ALT (test code = 25 U/L 1742-6) EGFR (test code = 107 mL/min/1.[place] [address]-6) NOT ACCURATE CREATININE CLEARANCE IN PREDICTING GLOMERULAR FILTRATION RATE . ESTIMATED GFR I S NOT APPLICABLE FOR DIALYSIS PATIEN TS. VERITO (test code = VERITO) [employer] ID - DB Lab Interpretation Abnormal (test code = 55928-4) [facility] HospitalCom[facility] metabolic [id number] 23:05:38 Test Item Value Reference Range Interpretation Comments Protein, Total (test 7.7 See_Comment [Autom ated code = 2885-2) message] The system which generated this result transmit aleks reference range : 6.0 - 8.3 gm/dL . The reference range was not u sed to interpret th is result as normal/abnormal . Albumin (test code = 4.2 g/dL 3.5-5.0 90663-9) Alkaline Phosphatase 80 U/L 40-150 (test code = 6768-6) Total Bilirubin (test 0.4 mg/dL 0.2-1.2 code = 1974-2) Sodium (test code = 138 meq/L 736-031 7219-2) Potassium (test code 3.4 meq/L 3.5-5.1 L = 2823-3) Chloride (test code = 102 meq/L 98-107 2075-0) CO2 (test code = 26 meq/L 22-29 2028-9) BUN (test code = 11 mg/dL 7-21 3094-0) Creatinine (test code 0.78 mg/dL 0.57-1.25 = 2160-0) Glucose (test code = 100 mg/dL 70-105 2345-7) Calcium (test code = 9.0 mg/dL 8.4-10.2 43937-5) AST (test code = 22 U/L 5-34 1920-8) ALT (test code = 25 U/L 6-55 1742-6) EGFR (test code = 107 mL/min/1.[place] [address]-2) NOT ACCURATE CREATININE CLEARANCE IN PREDICTING GLOMERULAR FILTRATION RATE . ESTIMATED GFR I S NOT APPLICABLE FOR DIALYSIS PATIEN TSЕкатерина VERITO (test code = VERITO) [employer] ID - DB Lab Interpretation Abnormal (test code = 28587-0) [facility] HospitalCOMPREHENSIVE METABOLIC [id number] 23:05:38 Test Item Value Reference Range Interpretation [...] S NOT APPLICABLE FOR DIALYSIS PATIEN TS. [employer] ID - DBLactic acid, [id number] 22:55:53 Test Item Value Reference Range Interpretation Comments Lactate, Venous (test 0.91 mmol/L 0.50-2.20 Specim en code = 2872) slightly hemolyzed VERITO (test code = VERITO) [employer] ID - DBOperator ID - DB Lab Interpretation Normal (test code = 23354-2) [facility] HospitalLactic acid, [id number] 22:55:53 Test Item Value Reference Range Interpretation Comments Lactate, Venous (test 0.91 mmol/L 0.50-2.20 Specim en code = 2872) slightly hemolyzed VERITO (test code = VERITO) [employer] ID - DBOperator ID - DB Lab Interpretation Normal (test code = 20521-6) [facility] HospitalLactic acid, [id number] 22:55:53 Test Item Value Reference Range Interpretation Comments Lactate, Venous (test 0.91 mmol/L 0.50-2.20 Specim en code = 2872) slightly hemolyzed VERITO (test code = VERITO) [employer] ID - DBOperator ID - DB Lab Interpretation Normal (test code = 18123-3) [facility] HospitalLACTIC ACID, [id number] 22:55:53 Test Item Value Reference Range Interpretation Comments LACTATE BLOOD VENOUS 0.91 mmol/L 0.50-2.20 Specime n slightly (2) (BEAKER) (test hemolyzed code = 2872) [employer] ID - DBOperator ID - DBCBC with platelet count + automated diff 2021-11-05 22:47:54 Test Item Value Reference Range Interpretation Comments WBC (test code = 6690-2) 6.8 See_Comment [A utomated message] The system [employer] generated this result transmitted ref erence range: 3.5 - 10 .5 K/L. The refe rence range was not u sed to interpret this result as normal/abnor mal. RBC (test code = 789-8) 4.86 See_Comment [Au tomated message] The system [employer] generated this result transmitted ref erence range: 3.93 - 5 .22 M/L. The refe rence range was not u sed to interpret this result as normal/abnor mal. MCHC (test code = 786-4) 30.1 See_Comment L [A utomated message] The system [employer] generated this result transmitted ref erence range: [...] code = 256 See_Comment [Aut omated message] 397-3) The system [employer] generated this result transmitted ref erence range: 150 - 45 0 K/CU MM. The referen ce range was not u sed to interpret this result as normal/abnor mal. MPV (test code = 9.4 fL 9.4-12.3 50520-2) nRBC (test code = 413) 0 See_Comment [Aut omated message] The system [employer] generated this result transmitted ref erence range: [...] See_Comment [Aut omated message] 670) The system [employer] generated this result transmitted ref erence range: 1.56 - 6 .13 K/L. The refe rence range was not u sed to interpret this result as normal/abnor mal. # Lymphs (test code = 1.85 See_Comment [Auto mated message] 414) The system [employer] generated this result transmitted ref erence range: 1.18 - 3 .74 K/L. The refe rence range was not u sed to interpret this result as normal/abnor mal. # Monos (test code = 0.74 See_Comment H [Autom ated message] 415) The system [employer] generated this result transmitted ref erence range: 0.24 - 0 .36 K/L. The refe rence range was not u sed to interpret this result as normal/abnor mal. # Eos (test code = 416) 0.08 See_Comment [Au tomated message] The system [employer] generated this result transmitted ref erence range: 0.04 - 0 .36 K/L. The refe rence range was not u sed to interpret this result as normal/abnor mal. # Baso (test code = 417) 0.04 See_Comment [A utomated message] The system [employer] generated this result transmitted ref erence range: 0.01 - 0 .08 K/L. The refe rence range was not u sed to interpret this result as normal/abnor mal. Immature 0 % 0-1 Granulocytes-Relative (test code = 2801) Lab Interpretation (test Abnormal code = 60618-5) [facility] with platelet count + automated [id number] 22:47:54 Test Item Value Reference Range Interpretation Comments WBC (test code = 6690-2) 6.8 See_Comment [A utomated message] The system [employer] generated this result transmitted ref erence range: 3.5 - 10 .5 K/L. The refe rence range was not u sed to interpret this result as normal/abnor mal. RBC (test code = 789-8) 4.86 See_Comment [Au tomated message] The system [employer] generated this result transmitted ref erence range: 3.93 - 5 .22 M/L. The refe rence range was not u sed to interpret this result as normal/abnor mal. MCHC (test code = 786-4) 30.1 See_Comment L [A utomated message] The system [employer] generated this result transmitted ref erence range: [...] See_Comment [Aut omated message] 777-3) The system [employer] generated this result transmitted ref erence range: 150 - 45 0 K/CU MM. The referen ce range was not u sed to interpret this result as normal/abnor mal. MPV (test code = 9.4 fL 9.4-12.3 97082-2) nRBC (test code = 413) 0 See_Comment [Aut omated message] The system [employer] generated this result transmitted ref erence range: [...] See_Comment [Aut omated message] 670) The system [employer] generated this result transmitted ref erence range: 1.56 - 6 .13 K/L. The refe rence range was not u sed to interpret this result as normal/abnor mal. # Lymphs (test code = 1.85 See_Comment [Auto mated message] 414) The system [employer] generated this result transmitted ref erence range: 1.18 - 3 .74 K/L. The refe rence range was not u sed to interpret this result as normal/abnor mal. # Monos (test code = 0.74 See_Comment H [Autom ated message] 415) The system [employer] generated this result transmitted ref erence range: 0.24 - 0 .36 K/L. The refe rence range was not u sed to interpret this result as normal/abnor mal. # Eos (test code = 416) 0.08 See_Comment [Au tomated message] The system [employer] generated this result transmitted ref erence range: 0.04 - 0 .36 K/L. The refe rence range was not u sed to interpret this result as normal/abnor mal. # Baso (test code = 417) 0.04 See_Comment [A utomated message] The system [employer] generated this result transmitted ref erence range: 0.01 - 0 .08 K/L. The refe rence range was not u sed to interpret this result as normal/abnor mal. Immature 0 % 0-1 Granulocytes-Relative (test code = 2801) Lab Interpretation (test Abnormal code = 79734-6) [facility] with platelet count + automated [id number] 22:47:54 Test Item Value Reference Range Interpretation Comments WBC (test code = 6690-2) 6.8 See_Comment [A utomated message] The system [employer] generated this result transmitted ref erence range: 3.5 - 10 .5 K/L. The refe rence range was not u sed to interpret this result as normal/abnor mal. RBC (test code = 789-8) 4.86 See_Comment [Au tomated message] The system [employer] generated this result transmitted ref erence range: 3.93 - 5 .22 M/L. The refe rence range was not u sed to interpret this result as normal/abnor mal. MCHC (test code = 786-4) 30.1 See_Comment L [A utomated message] The system [employer] generated this result transmitted ref erence range: [...] See_Comment [Aut omated message] 777-3) The system [employer] generated this result transmitted ref erence range: 150 - 45 0 K/CU MM. The referen ce range was not u sed to interpret this result as normal/abnor mal. MPV (test code = 9.4 fL 9.4-12.3 67207-2) nRBC (test code = 413) 0 See_Comment [Aut omated message] The system [employer] generated this result transmitted ref erence range: [...] See_Comment [Aut omated message] 670) The system [employer] generated this result transmitted ref erence range: 1.56 - 6 .13 K/L. The refe rence range was not u sed to interpret this result as normal/abnor mal. # Lymphs (test code = 1.85 See_Comment [Auto mated message] 414) The system [employer] generated this result transmitted ref erence range: 1.18 - 3 .74 K/L. The refe rence range was not u sed to interpret this result as normal/abnor mal. # Monos (test code = 0.74 See_Comment H [Autom ated message] 415) The system [employer] generated this result transmitted ref erence range: 0.24 - 0 .36 K/L. The refe rence range was not u sed to interpret this result as normal/abnor mal. # Eos (test code = 416) 0.08 See_Comment [Au tomated message] The system [employer] generated this result transmitted ref erence range: 0.04 - 0 .36 K/L. The refe rence range was not u sed to interpret this result as normal/abnor mal. # Baso (test code = 417) 0.04 See_Comment [A utomated message] The system [employer] generated this result transmitted ref erence range: 0.01 - 0 .08 K/L. The refe rence range was not u sed to interpret this result as normal/abnor mal. Immature 0 % 0-1 Granulocytes-Relative (test code = 2801) Lab Interpretation (test Abnormal code = 76857-6) [facility] W/PLT COUNT & AUTO [id number] 22:47:54 Test Item Value Reference Range Interpretation [...] = No growth in 5 days 6463-4) [facility]2021-09-09 07:00:34 Test Item Value Reference Range Interpretation Comments Result (test code = No growth in 5 days 6463-4) [facility] ([facility]ipuncture)2021-09-09 07:00:34 Test Item Value Reference Range Interpretation Comments Result (test code = No growth in 5 days 6463-4) [facility]BL[facility] [id number] 07:00:34 Test Item Value Reference Range Interpretation Comments CULTURE (BEAKER) (test No growth in 5 days code = 1095) BLOOD [id number] 07:00:34 Test Item Value Reference Range Interpretation Comments CULTURE (BEAKER) (test No growth in 5 days code = 1095) Anti-Nuclear Antibody (ROSI)2021-09-05 13:55:57 Test Item Value Reference Range Interpretation Comments ROSI (test code = 61258-5) Negative Negative VERITO (test code = VERITO) Test performed by IFA method.Test performed by IFA method. Lab Interpretation (test Normal code = 61174-5) [facility]2021-09-05 13:55:57 Test Item Value Reference Range Interpretation Comments ROSI (test code = 00349-7) Negative Negative VERITO (test code = VERITO) Test performed by IFA method.Test performed by IFA method. Lab Interpretation (test Normal code = 97882-3) [facility] (ROIS)2021-09-05 13:55:57 Test Item Value Reference Range Interpretation Comments ROSI (test code = 24402-5) Negative Negative VERITO (test code = VERITO) Test performed by IFA method.Test performed by IFA method. Lab Interpretation (test Normal code = 64313-2) [facility]CLE[facility]ODY (ROSI)2021-09-05 13:55:57 Test Item Value Reference Range Interpretation Comments ANTI-NUCLEAR ANTIBODY (ROSI) (BEAKER) Negative Negative (test code = 418) Test performed by IFA method.Test performed by IFA method.CBC W/PLT COUNT & AUTO [id number] 06:10:59 Test Item Value Reference Range Interpretation [...] (BEAKER) (test code = 2801) Basic Metabolic [id number] 06:02:03 Test Item Value Reference Range Interpretation Comments Sodium (test code = 139 meq/L 372-709 2733-2) Potassium (test code 3.6 meq/L 3.6-5.5 = 2823-3) Chloride (test code = 107 meq/L 98-106 H 2075-0) CO2 (test code = 23 meq/L 20-2027-) BUN (test code = 4 mg/dL 10-26 L 3094-0) Creatinine (test code 0.64 mg/dL 0.50-1.20 = 2160-0) Glucose (test code = 110 mg/dL 70-110 2345-7) Calcium (test code = 8.7 mg/dL 8.5-10.5 43340-9) EGFR (test code = 134 mL/min/1[place] [address]-4) m NOT ACCURATE CREATININE CLEARANCE IN PREDICTING GLOMERULAR FILTRATION RATE . ESTIMATED GFR I S NOT APPLICABLE FOR DIALYSIS PATIENTS. VERITO (test code = VERITO) [employer] ID - LITOOperator ID - LITOOperator ID - LITOOperator ID - LITOOperator ID - LITOOperator ID - LITOOperator ID - LITOOperator ID - LITOOperator ID - LITOOperator ID - XIMENA Lab Interpretation Abnormal (test code = 65999-0) [facility] Hospital[facility]asi Metabolic [id number] 06:02:03 Test Item Value Reference Range Interpretation Comments Sodium (test code = 139 meq/L 379-294 6690-2) Potassium (test code 3.6 meq/L 3.6-5.5 = 2823-3) Chloride (test code = 107 meq/L 98-106 H 5-0) CO2 (test code = 23 meq/L -2028-04) BUN (test code = 4 mg/dL 10-26 L 3094-0) Creatinine (test code 0.64 mg/dL 0.50-1.20 = 2160-0) Glucose (test code = 110 mg/dL 70-110 2345-7) Calcium (test code = 8.7 mg/dL 8.5-10.5 26255-3) EGFR (test code = 134 mL/min/1.[place] [address]-6) m NOT ACCURATE CREATININE CLEARANCE IN PREDICTING GLOMERULAR FILTRATION RATE . ESTIMATED GFR I S NOT APPLICABLE FOR DIALYSIS PATIENTS. VERITO (test code = VERITO) [employer] ID - LITOOperator ID - LITOOperator ID - LITOOperator ID - LITOOperator ID - LITOOperator ID - LITOOperator ID - LITOOperator ID - LITOOperator ID - LITOOperator ID - XIMENA Lab Interpretation Abnormal (test code = 93539-4) [facility] Metabolic [id number] 06:02:03 Test Item Value Reference Range Interpretation Comments Sodium (test code = 139 meq/L 021-148 6267-2) Potassium (test code 3.6 meq/L 3.6-5.5 = 2823-3) Chloride (test code = 107 meq/L 98-106 H 2075-0) CO2 (test code = 23 meq/L 20-29 2028-9) BUN (test code = 4 mg/dL 10-26 L 3094-0) Creatinine (test code 0.64 mg/dL 0.50-1.20 = 2160-0) Glucose (test code = 110 mg/dL 70-110 2345-7) Calcium (test code = 8.7 mg/dL 8.5-10.5 17819-3) EGFR (test code = 134 mL/min/1.[place] [address]-2) m NOT ACCURATE CREATININE CLEARANCE IN PREDICTING GLOMERULAR FILTRATION RATE . ESTIMATED GFR I S NOT APPLICABLE FOR DIALYSIS PATIENTS. VERITO (test code = VERITO) [employer] ID - LITOOperator ID - LITOOperator ID - LITOOperator ID - LITOOperator ID - LITOOperator ID - LITOOperator ID - LITOOperator ID - LITOOperator ID - LITOOperator ID - XIMENA Lab Interpretation Abnormal (test code = 77912-8) [facility] METABOLIC [id number] 06:02:03 Test Item Value Reference Range Interpretation [...] S NOT APPLICABLE FOR DIALYSIS PATIEN TS. [employer] ID - LITOOperator ID - LITOOperator ID - LITOOperator ID - LITOOperator ID - LITOOperator ID - LITOOperator ID - LITOOperator ID - LITOOperator ID - LITOOperator ID - [id number] 06:00:02 Test Item Value Reference Range Interpretation Comments Magnesium (test code = 1.9 mg/dL 1.5-3.0 06216-9) VERITO (test code = VERITO) [employer] ID - LITOOperator ID - LITOOperator ID - LITOOperator ID - XIMENA Lab Interpretation (test Normal code = 06991-5) [facility] Test Item Value Reference Range Interpretation Comments Magnesium (test code = 1.9 mg/dL 1.5-3.0 88592-2) VERITO (test code = VERITO) [employer] ID - LITOOperator ID - LITOOperator ID - LITOOperator ID - XIMENA Lab Interpretation (test Normal code = 81331-8) [facility] 06:00:02 Test Item Value Reference Range Interpretation Comments Magnesium (test code = 1.9 mg/dL 1.5-3.0 73244-7) VERITO (test code = VERITO) [employer] ID - LITOOperator ID - LITOOperator ID - LITOOperator ID - XIMENA Lab Interpretation (test Normal code = 85277-7) [facility] Test Item Value Reference Range Interpretation Comments MAGNESIUM (BEAKER) (test code = 1.9 mg/dL 1.5-3.0 627) [employer] ID - LITOOperator ID - LITOOperator ID - LITOOperator ID - LITOC- Reactive [id number] 05:58:11 Test Item Value Reference Range Interpretation Comments CRP (test code = 676) 5.49 mg/dL 0.00-0.50 H VERITO (test code = VERITO) [employer] ID - XIMENA Lab Interpretation (test Abnormal code = 80076-6) [facility] [id number] 05:58:11 Test Item Value Reference Range Interpretation Comments CRP (test code = 676) 5.49 mg/dL 0.00-0.50 H VERITO (test code = VERITO) [facility] News Anchor ID - XIMENA Lab Interpretation (test Abnormal code = 28268-1) [facility] [id number] 05:58:11 Test Item Value Reference Range Interpretation Comments CRP (test code = 676) 5.49 mg/dL 0.00-0.50 H VERITO (test code = VERITO) Television News Anchor ID - XIMENA Lab Interpretation (test Abnormal code = 42620-3) [facility] [id number] 05:58:11 Test Item Value Reference Range Interpretation Comments C-REACTIVE PROTEIN (BEAKER) (test 5.49 mg/dL 0.00-0.50 H code = 676) Television News Anchor ID - LITOCT, CTANGIO [id number] 02:24:00Unlisted Reason for Exam - Click Yes and Enter Reason Below->No [facility] 1995 Sex: [...] Not well-visualized bilaterally.Posterior Circulation:Right posterior cerebral artery (CANT HOOKER): NormalLeft posterior cerebral artery (CANT HOOKER): Normal Right vertebral artery (VA): NormalLeft vertebral artery (VA): NormalBasilar artery (BA):Normal Other: No aneurysm Dural Venous Sinuses: Normal IMPRESSION: 1. No acute intracranial abnormality.2. No hemodynamically significant stenosis or aneurysm. Signed: Nita Madsen [facility] Verified Date/Time: 09/04/2021 02:24:17 2D Echo W/Doppler(CW/PW/Color)2021-09-03 16:06:54Ejection FractionSLEH ECHO HEART[facility] W/Doppler(CW/PW/Color) 2021-09-03 16:06:54Ejection FractionSLEH ECHO [facility] W/Doppler(CW/PW/Color)2021-09-03 16:06:54Ejection FractionSLEH [facility]CHO [facility]T [facility] & AUTO [id number] 06:12:06 Test Item Value Reference Range Interpretation [...] (BEAKER) (test code = 2801) BASIC METABOLIC [id number] 06:09:34 Test Item Value Reference Range Interpretation [...] S NOT APPLICABLE FOR DIALYSIS PATIEN TS. Television News Anchor ID - LITOOperator ID - LITOOperator ID - LITOOperator ID - LITOOperator ID - LITOOperator ID - LITOOperator ID - LITOOperator ID - LITOOperator ID - LITOOperator ID - [id number] 06:04:12 Test Item Value Reference Range Interpretation Comments MAGNESIUM (BEAKER) (test code = 1.8 mg/dL 1.5-3.0 627) Television News Anchor ID - LITOOperator ID - LITOOperator ID - LITOOperator ID - LITOTroponin [id number] 07:27:11 Test Item Value Reference Range Interpretation Comments Troponin I (test code = <0.03 0.00-0.15 24046-8) VERITO (test code = VERITO) Troponin I [...] failure, acidosis, acute neurological disease, and persistent tachyarrhythmia.[facility] [employer] - PowerPot Lab Interpretation (test Normal code = 75622-2) [facility] [id number] 07:27:11 Test Item Value Reference Range Interpretation Comments Troponin I (test code = <0.03 0.00-0.15 99199-5) VERITO (test code = VERITO) Troponin I [...] failure, acidosis, acute neurological disease, and persistent tachyarrhythmia.[facility] [employer] Lab Interpretation (test Normal code = 43328-7) [facility] [id number] 07:27:11 Test Item Value Reference Range Interpretation Comments Troponin I (test code = <0.03 0.00-0.15 50914-4) VERITO (test code = VERITO) Troponin I [...] failure, acidosis, acute neurological disease, and persistent tachyarrhythmia.[facility] DiscoveryENSON Lab Interpretation (test Normal code = 33754-2) [facility] [id number] 07:27:11 Test Item Value Reference Range Interpretation [...] failure, acidosis, acute neurological disease, and persistent tachyarrhythmia.Television News Anchor ID - DSENSONIron, TIBC, % sat. (without ferritin)2021-09-02 06:23:13 Test Item Value Reference Range Interpretation Comments Iron (test code = 2498-4) 16.0 ug/dL 45.0-170.0 L TIBC (test code = 2500-7) 330 ug/dL 250-550 Iron % Saturation (test 5 % 20-55 L code = 2502-3) VERITO (test code = VERITO) Television News Anchor ID - [id number] ID - [id number] Lab Interpretation (test Abnormal code = 16259-7) [facility] HospitalIron, TIBC, % sat. (without ferritin)2021-09-02 06:23:13 Test Item Value Reference Range Interpretation Comments Iron (test code = 2498-4) 16.0 ug/dL 45.0-170.0 L TIBC (test code = 2500-7) 330 ug/dL 250-550 Iron % Saturation (test 5 % 20-55 L code = 2502-3) VERITO (test code = VERITO) Television News Anchor ID - [id number] ID - [id number] Lab Interpretation (test Abnormal code = 90482-3) [facility] HospitalIron, TIBC, % sat. (without ferritin)2021-09-02 06:23:13 Test Item Value Reference Range Interpretation Comments Iron (test code = 2498-4) 16.0 ug/dL 45.0-170.0 L TIBC (test code = 2500-7) 330 ug/dL 250-550 Iron % Saturation (test 5 % 20-55 L code = 2502-3) VERITO (test code = VERITO) Television News Anchor ID - [id number] ID - [id number] Lab Interpretation (test Abnormal code = 56483-7) [facility] HospitalIRON, TIBC, % SAT. (WITHOUT FERRITIN)2021-09-02 06:23:13 Test Item Value Reference Range Interpretation Comments IRON (BEAKER) (test code = 547) 16.0 ug/dL 45.0-170.0 L TOTAL IRON BINDING CAPACITY 330 ug/dL 250-550 (BEAKER) (test code = 769) IRON % SATURATION (2) (BEAKER) 5 % 20-55 L (test code = 2590) Television News Anchor ID - [id number] ID - [id number] 05:12:03 Test Item Value Reference Range Interpretation Comments Ferritin (test code = 38.80 ng/mL 10.00-291.00 2276-4) VERITO (test code = VERITO) Television News Anchor ID - [id number] Lab Interpretation (test Normal code = 33899-8) [facility] HospitalFerritin2022-01-22 05:12:03 Test Item Value Reference Range Interpretation Comments Ferritin (test code = 38.80 ng/mL 10.00-291.00 2276-4) VERITO (test code = VERITO) Television News Anchor ID - [id number] Lab Interpretation (test Normal code = 97335-1) [facility] HospitalFerritin2022-01-22 05:12:03 Test Item Value Reference Range Interpretation Comments Ferritin (test code = 38.80 ng/mL 10.00-291.00 2276-4) VERITO (test code = VERITO) Television News Anchor ID - [id number] Lab Interpretation (test Normal code = 87411-3) [facility] HospitalFERRITIN2022-01-22 05:12:03 Test Item Value Reference Range Interpretation Comments FERRITIN (BEAKER) (test code = 38.80 ng/mL 10.00-291.00 361) Television News Anchor ID - [id number]/Free T4 If Jfxhabhte4571-43-28 05:11:18 Test Item Value Reference Range Interpretation Comments TSH (test code = 0.450 See_Comment [Automated 62592-8) message] The system which generated this result transmit aleks reference range : 0.350 - 5.500 uIU/mL. The reference range was not used to interpret this result as normal/abnormal . VERITO (test code = VERITO) Television News Anchor ID - [id number] Lab Interpretation Normal (test code = 55979-5) [facility] HospitalTSH/Free T4 If Vxwevzrpt5408-78-51 05:11:18 Test Item Value Reference Range Interpretation Comments TSH (test code = 0.450 See_Comment [Automated 69398-1) message] The system which generated this result transmit aleks reference range : 0.350 - 5.500 uIU/mL. The reference range was not used to interpret this result as normal/abnormal . VERITO (test code = VERITO) Television News Anchor ID - [id number] Lab Interpretation Normal (test code = 14916-7) [facility]/Free T4 If Hkvlfuvur8994-47-18 05:11:18 Test Item Value Reference Range Interpretation Comments TSH (test code = 0.450 See_Comment [Automated 82343-7) message] The system which generated this result transmit aleks reference range : 0.350 - 5.500 uIU/mL. The reference range was not used to interpret this result as normal/abnormal . VERITO (test code = VERITO) Television News Anchor ID - [id number] Lab Interpretation Normal (test code = 88975-2) [facility]/FREE T4 IF [id number] 05:11:18 Test Item Value Reference Range Interpretation Comments THYROID STIMULATING HORMONE 0.450 uIU/mL 0.350-5.500 (BEAKER) (test code = 772) Television News Anchor ID - [id number] M9710-01-00 04:58:50 Test Item Value Reference Range Interpretation [...] failure, acidosis, acute neurological disease, and persistent tachyarrhythmia.Television News Anchor ID - [id number] METABOLIC [id number] 04:52:40 Test Item Value Reference Range Interpretation [...] S NOT APPLICABLE FOR DIALYSIS PATIEN TS. Television News Anchor ID - [id number] ID - [id number] ID - pnca89Shnrpayf ID - cane91Eyfokylm ID - zzec45Qonqzvts ID - uglq01Hvzrtsav ID - eroz50Gywmqdfg ID - vlno06Orqbdnez ID - jnos32Zwezpgwt ID - sram75NGPBWZYDK2560-83-86 04:49:10 Test Item Value Reference Range Interpretation Comments MAGNESIUM (BEAKER) (test code = 1.7 mg/dL 1.5-3.0 627) Television News Anchor ID - [id number] ID - [id number] ID - edbv16Notcbnay ID - [email or web address] Lipid qqkek0291-98-05 04:49:09 Test Item Value Reference Range Interpretation Comments Triglycerides (test 95 mg/dL code = 2571-8) Cholesterol (test code 172 mg/dL = 3-3) HDL (test code = 64 mg/dL 2085-04) LDL Calculated (test 89 mg/dL code = 07137-4) VERITO (test code = VERITO) Triglyceride Reference Range: Low Risk <150 Borderline 150-199 High Risk 200-499 Very High Risk >=500 Cholesterol Reference Range: Low Risk <200 Borderline 200-239 High Risk >240 HDL Cholesterol Reference Range: Low Risk >=60 High Risk <40 LDL Cholesterol Reference Range: Optimal <100 Near Optimal 100-129 Borderline 130-159 High 160-189 Very High >=190 Television News Anchor ID - [id number] ID - skwi73Gykjmmgs ID - [email or web address] [facility] HospitalLipid qzirk9276-69-94 04:49:09 Test Item Value Reference Range Interpretation Comments Triglycerides (test 95 mg/dL code = 2571-8) Cholesterol (test code 172 mg/dL = 2093-3) HDL (test code = 64 mg/dL 9) LDL Calculated (test 89 mg/dL code = 60298-0) VERITO (test code = VERITO) Triglyceride Reference Range: Low Risk <150 Borderline 150-199 High Risk 200-499 Very High Risk >=500 Cholesterol Reference Range: Low Risk <200 Borderline 200-239 High Risk >240 HDL Cholesterol Reference Range: Low Risk >=60 High Risk <40 LDL Cholesterol Reference Range: Optimal <100 Near Optimal 100-129 Borderline 130-159 High 160-189 Very High >=190 Television News Anchor ID - [id number] ID - [id number] ID - [email or web address] [facility] HospitalLipid zmlok2937-67-62 04:49:09 Test Item Value Reference Range Interpretation Comments Triglycerides (test 95 mg/dL code = 2571-8) Cholesterol (test code 172 mg/dL = 2093-3) HDL (test code = 64 mg/dL 2085-04) LDL Calculated (test 89 mg/dL code = 21348-9) VERITO (test code = VERITO) Triglyceride Reference Range: Low Risk <150 Borderline 150-199 High Risk 200-499 Very High Risk >=500 Cholesterol Reference Range: Low Risk <200 Borderline 200-239 High Risk >240 HDL Cholesterol Reference Range: Low Risk >=60 High Risk <40 LDL Cholesterol Reference Range: Optimal <100 Near Optimal 100-129 Borderline 130-159 High 160-189 Very High >=190 Television News Anchor ID - [id number] ID - yijt95Zlbjdvou ID - [email or web address] [facility] HospitalLIPID [id number] 04:49:09 Test Item Value Reference Range Interpretation [...] Borderline 130-159 High 160-189 Very High >=190 Television News Anchor ID - [id number] ID - ymyz75Amusptsz ID - dcng54Kivlrrvjiu3148-64-27 04:46:26 Test Item Value Reference Range Interpretation Comments Phosphorus (test code = 2.4 mg/dL 2.5-4.5 L 2777-1) VERITO (test code = VERITO) Television News Anchor ID - [id number] Lab Interpretation (test Abnormal code = 61658-9) [facility] HospitalPhosphorus2022-01-22 04:46:26 Test Item Value Reference Range Interpretation Comments Phosphorus (test code = 2.4 mg/dL 2.5-4.5 L 2777-1) VERITO (test code = VERITO) Television News Anchor ID - [id number] Lab Interpretation (test Abnormal code = 66764-7) [facility] HospitalPhosphorus2022-01-22 04:46:26 Test Item Value Reference Range Interpretation Comments Phosphorus (test code = 2.4 mg/dL 2.5-4.5 L 2777-1) VERITO (test code = VERITO) Television News Anchor ID - [id number] Lab Interpretation (test Abnormal code = 84317-8) [facility] HospitalPHOSPHORUS2022-01-22 04:46:26 Test Item Value Reference Range Interpretation Comments PHOSPHORUS (BEAKER) (test code = 2.4 mg/dL 2.5-4.5 L 604) Television News Anchor ID - [id number] [id number] 04:45:03 Test Item Value Reference Range Interpretation Comments Hemoglobin A1C (test code 5.4 % 4.3-6.1 = 4548-4) VERITO (test code = VERITO) Television News Anchor ID - [id number] Lab Interpretation (test Normal code = 32196-9) [facility] HospitalHemoglobin [id number] 04:45:03 Test Item Value Reference Range Interpretation Comments Hemoglobin A1C (test code 5.4 % 4.3-6.1 = 4548-4) VERITO (test code = VERITO) Television News Anchor ID - [id number] Lab Interpretation (test Normal code = 51542-0) [facility] HospitalHemoglobin [id number] 04:45:03 Test Item Value Reference Range Interpretation Comments Hemoglobin A1C (test code 5.4 % 4.3-6.1 = 4548-4) VERITO (test code = VERITO) Television News Anchor ID - [id number] Lab Interpretation (test Normal code = 76913-0) [facility] HospitalHEMOGLOBIN [id number] 04:45:03 Test Item Value Reference Range Interpretation Comments HEMOGLOBIN A1C (BRIANA) (test code = 5.4 % 4.3-6.1 368) Television News Anchor ID - [id number] time/VOB8728-07-60 04:30:40 Test Item Value Reference Interpretation Comments [...] valves. Lab Interpretation Normal (test code = 36087-5) [facility] HospitalProthrombin time/[id number] 04:30:40 Test Item Value Reference Interpretation Comments [...] valves. Lab Interpretation Normal (test code = 66226-8) [facility] HospitalProthrombin time/[id number] 04:30:40 Test Item Value Reference Interpretation Comments [...] normal/abnormal . VERITO (test code = RECOMMENDED VREITO) COUMADIN/WARFARIN INR THERAPY RANGESSTANDARD DOSE: 2.0 - 3.0 Includes: PROPHYLAXIS for venous thrombosis, systemic embolization; TREATMENT for venous thrombosis and/or pulmonary embolus.HIGH RISK: Target INR is 2.5-3.5 for patients with mechanical heart valves. Lab Interpretation Normal (test code = 65833-1) [facility] HospitalPROTHROMBIN TIME/[id number] 04:30:40 Test Item Value Reference Range Interpretation Comments PROTIME (BEAKER) 10.7 seconds 9.3-12.0 Final Infor mation (test code = 759) (Auto Outp ut) INR (BEAKER) (test 0.96 See_Comment Final Inf ormation code = 370) (Auto Output) [Automated mess age] The system [employer] generated this result transmitted ref erence range: <=5.90. The reference range was not used to int erpret this result as normal/abnormal . RECOMMENDED COUMADIN/WARFARIN INR THERAPY RANGESSTANDARD DOSE: 2.0 - 3.0 Includes: PROPHYLAXIS for venous thrombosis, systemic embolization; TREATMENT for venous thrombosis and/or pulmonary embolus.HIGH RISK: Target INR is 2.5-3.5 for patients with mechanical heart valves.CBC W/PLT COUNT & AUTO [id number] 04:16:51 Test Item Value Reference Range Interpretation [...] (BEAKER) (test code = 2801) MR, BRAIN, [id number] 03:45:00Unlisted Reason for Exam - Click Yes and Enter Reason Below->NoDeos the patient have an implantedelectronic device?->No [facility] : 1995 Sex: [...] cerebellum was not entirely included within the njniq-yx-slik on axial sequences. Parenchyma: No infarction on DWI. No hemorrhage. No mass or mass effect. Abnormal Enhancement: None Extra-axial Collection: None Ventricular System: Normal Major Intracranial Flow Voids: Normal Osseous Structures: Expected marrow signal. Included Orbits: Normal Paranasal Sinuses: Predominantly clear Tympanomastoid Cavities: Normal IMPRESSION: The inferior aspect of the cerebellum was not entirelyincluded within the oqapa-fu-lkbx.. Otherwise, unremarkable MRI of the brain without and with contrast. No finding to account for syncope. Signed: Nita Madsen [facility] Verified Date/Time: 09/02/2021 03:45:34 Rapid drug screen, jasbw8711-02-14 23:47:37 Test Item Value Reference Range Interpretation Comments Barbiturate Screen Negative Negative (test code = 61296-2) Benzodiazepine Screen Positive Negative A (test code = 55526-3) Cocaine (Metab.) Negative Negative Screen (test code = 3397-7) Methadone Screen (test Negative Negative code = 57039-4) Opiate Screen (test Negative Negative code = 90803-7) Cannabinoid Screen Positive Negative A (test code = 73535-0) Amph/Methamph Screen Negative Negative (test code = 67398-6) Phencyclidine Screen Negative Negative (test code = 27691-5) pH, UA (test code = 6.5 5.0-8.0 5803-2) VERITO (test code = VERITO) DRUG CUTOFF CONC.Cocaine 300 ng/mL Cannabinoid 50 ng/mLBenzodiazepine 200 ng/mLBarbiturate 200 ng/mLPhencyclidine 25 ng/mLOpiate 300 ng/mLMethadone 300 ng/mLAmphetamine/ 1000 ng/mL Methamphetamine This assay provides an unconfirmed qualitative test result for the clinical management of patients in emergency situations. Chain of custody not maintained. Some aaye-dvh-eooqbqx medications, as well as adulterants, may cause inaccurate results. Clinical correlation should be applied. A more comprehensive drug screen or confirmation of a detected drug may be performed upon request.Television News Anchor ID - ERINYOperator ID - ERINYOperator ID - ERINYOperator ID - ERINYOperator ID - ERINYOperator ID - ERINYOperator ID - ERINYOperator ID - ERINY Lab Interpretation Abnormal (test code = 02322-5) [facility] HospitalRapid [facility] screen, [id number] 23:47:37 Test Item Value Reference Range Interpretation Comments Barbiturate Screen Negative Negative (test code = 94592-9) Benzodiazepine Screen Positive Negative A (test code = 83002-6) Cocaine (Metab.) Negative Negative Screen (test code = 3397-7) Methadone Screen (test Negative Negative code = 20130-8) Opiate Screen (test Negative Negative code = 74737-9) Cannabinoid Screen Positive Negative A (test code = 06142-9) Amph/Methamph Screen Negative Negative (test code = 61969-9) Phencyclidine Screen Negative Negative (test code = 33830-7) pH, UA (test code = 6.5 5.0-8.0 5803-2) VERITO (test code = VERITO) DRUG CUTOFF CONC.Cocaine 300 ng/mL Cannabinoid 50 ng/mLBenzodiazepine 200 ng/mLBarbiturate 200 ng/mLPhencyclidine 25 ng/mLOpiate 300 ng/mLMethadone 300 ng/mLAmphetamine/ 1000 ng/mL Methamphetamine This assay provides an unconfirmed qualitative test result for the clinical management of patients in emergency situations. Chain of custody not maintained. Some cqvl-isz-hpnrjly medications, as well as adulterants, may cause inaccurate results. Clinical correlation should be applied. A more comprehensive drug screen or confirmation of a detected drug may be performed upon request.Television News An[employer] ID - ERINYOperator ID - ERINYOperator ID - ERINYOperator ID - ERINYOperator ID - ERINYOperator ID - ERINYOperator ID - ERINYOperator ID - ERINY Lab Interpretation Abnormal (test code = 34182-7) [facility] HospitalRapid [facility] screen, [id number] 23:47:37 Test Item Value Reference Range Interpretation Comments Barbiturate Screen Negative Negative (test code = 99622-2) Benzodiazepine Screen Positive Negative A (test code = 82112-6) Cocaine (Metab.) Negative Negative Screen (test code = 3397-7) Methadone Screen (test Negative Negative code = 34577-1) Opiate Screen (test Negative Negative code = 57216-5) Cannabinoid Screen Positive Negative A (test code = 03431-5) Amph/Methamph Screen Negative Negative (test code = 71003-5) Phencyclidine Screen Negative Negative (test code = 29368-2) pH, UA (test code = 6.5 5.0-8.0 5803-2) VERITO (test code = VERITO) DRUG CUTOFF CONC.Cocaine 300 ng/mL Cannabinoid 50 ng/mLBenzodiazepine 200 ng/mLBarbiturate 200 ng/mLPhencyclidine 25 ng/mLOpiate 300 ng/mLMethadone 300 ng/mLAmphetamine/ 1000 ng/mL Methamphetamine This assay provides an unconfirmed qualitative test result for the clinical management of patients in emergency situations. Chain of custody not maintained. Some jpol-cbn-qnocanp medications, as well as adulterants, may cause inaccurate results. Clinical correlation should be applied. A more comprehensive drug screen or confirmation of a detected drug may be performed upon request.[employer] News An[employer] ID - ERINYOperator ID - ERINYOperator ID - ERINYOperator ID - ERINYOperator ID - ERINYOperator ID - ERINYOperator ID - ERINYOperator ID - ERINY Lab Interpretation Abnormal (test code = 84380-8) [facility] HospitalRAPID DRUG SCREEN, [id number] 23:47:37 Test Item Value Reference Range Interpretation [...] situations. Chain of custody not maintained. Some evts-hbr-mqhevue medications, as well as adulterants, may cause inaccurate results. Clinical correlation should be applied. A more comprehensive drug screen or confirmation of a detected drug may be performed upon request.[employer] ID - ERINYOperator ID - ERINYOperator ID - ERINYOperator ID - ERINYOperator ID - ERINYOperator ID - ERINYOperator ID - ERINYOperator ID - ERINYUrinalysis w/Gznqyfxkhmr9790-94-87 22:54:11 Test Item Value Reference Range Interpretation Comments Color, UA (test code = Yellow 5778-6) Clarity, UA (test code Clear = 5767-9) Specific Four [place], UA 1.015 1.001-1.035 (test code = 5811-5) pH, UA (test code = 6.5 5.0-8.0 5803-2) Protein, UA (test code Negative Negative = 07613-5) Glucose, UA (test code Negative Negative = 365) Ketones, UA (test code Negative Negative = 2514-8) Bilirubin, UA (test Negative Negative code = 54764-0) Blood, UA (test code = Negative Negative 74849-5) Nitrite, UA (test code Negative Negative = 5802-4) Leukocytes, UA (test Negative Negative code = 5799-2) Urobilinogen, UA (test 0.2 mg/dL 0.2-1.0 code = 54201-4) Bacteria, UA (test Rare code = 56716-4) RBC, UA (test code = None Seen See_Comment [Autom ated message] 799-7) The system [employer] generated this result transmitted ref erence range: /HPF. Th e reference range was not used to int erpret this result as normal/abnormal . WBC, UA (test code = None Seen See_Comment [Autom ated message] 27115-9) The system [employer] generated this result transmitted ref erence range: /HPF. Th e reference range was not used to int erpret this result as normal/abnormal . SQUAMOUS EPITHELIAL 5-10 See_Comment [Automa aleks message] (test code = 97643-7) The sy stem which generated this result transmitted ref erence range: /HPF. Th e reference range was not used to int erpret this result as normal/abnormal . Specimen Source (test code = 2795) [facility] HospitalUrinalysis w/Bmycxmndqdz1010-82-59 22:54:11 Test Item Value Reference Range Interpretation Comments Color, UA (test code = Yellow 5778-6) Clarity, UA (test code Clear = 5767-9) Specific Four [place], UA 1.015 1.001-1.035 (test code = 5811-5) pH, UA (test code = 6.5 5.0-8.0 5803-2) Protein, UA (test code Negative Negative = 57972-5) Glucose, UA (test code Negative Negative = 365) Ketones, UA (test code Negative Negative = 2514-8) Bilirubin, UA (test Negative Negative code = 48018-0) Blood, UA (test code = Negative Negative 14276-2) Nitrite, UA (test code Negative Negative = 5802-4) Leukocytes, UA (test Negative Negative code = 5799-2) Urobilinogen, UA (test 0.2 mg/dL 0.2-1.0 code = 27585-8) Bacteria, UA (test Rare code = 54786-8) RBC, UA (test code = None Seen See_Comment [Autom ated message] 799-7) The system [employer] generated this result transmitted ref erence range: /HPF. Th e reference range was not used to int erpret this result as normal/abnormal . WBC, UA (test code = None Seen See_Comment [Autom ated message] 60850-9) The system [employer] generated this result transmitted ref erence range: /HPF. Th e reference range was not used to int erpret this result as normal/abnormal . SQUAMOUS EPITHELIAL 5-10 See_Comment [Automa aleks message] (test code = 04163-0) The sy stem which generated this result transmitted ref erence range: /HPF. Th e reference range was not used to int erpret this result as normal/abnormal . Specimen Source (test code = 2795) [facility] HospitalUrinalysis w/[id number] 22:54:11 Test Item Value Reference Range Interpretation Comments Color, UA (test code = Yellow 5778-6) Clarity, UA (test code Clear = 5767-9) Specific Four States, UA 1.015 1.001-1.035 (test code = 5811-5) pH, UA (test code = 6.5 5.0-8.0 5803-2) Protein, UA (test code Negative Negative = 86935-6) Glucose, UA (test code Negative Negative = 365) Ketones, UA (test code Negative Negative = 2514-8) Bilirubin, UA (test Negative Negative code = 42029-9) Blood, UA (test code = Negative Negative 00438-1) Nitrite, UA (test code Negative Negative = 5802-4) Leukocytes, UA (test Negative Negative code = 5799-2) Urobilinogen, UA (test 0.2 mg/dL 0.2-1.0 code = 38279-7) Bacteria, UA (test Rare code = 70605-6) RBC, UA (test code = None Seen See_Comment [Autom ated message] 799-7) The system [employer] generated this result transmitted ref erence range: /HPF. Th e reference range was not used to int erpret this result as normal/abnormal . WBC, UA (test code = None Seen See_Comment [Autom ated message] 10377-5) The system [employer] generated this result transmitted ref erence range: /HPF. Th e reference range was not used to int erpret this result as normal/abnormal . SQUAMOUS EPITHELIAL 5-10 See_Comment [Automa aleks message] (test code = 66680-6) The sy stem which generated this result transmitted ref erence range: /HPF. Th e reference range was not used to int erpret this result as normal/abnormal . Specimen Source (test code = 2795) [facility] [id number] 22:54:11 Test Item Value Reference Range Interpretation [...] = 2795) U/S, PELVIS, WITH ENDOVAG AND [id number] 21:36:00Reason for exam:- >lower abd pain with h/o ovarian cysts [facility] 1995 Sex: FFINAL [...] Normal ovaries. Status post hysterectomy Signed: Libia Sanabrai Verified Date/Time: 09/01/2021 21:36:33 D-dimer, [id number] 19:10:58 Test Item Value Reference Range Interpretation Comments D-Dimer, Quant (test 0.47 See_Comment Final I nformation code = 12657-2) (Auto Output ) [Automated message] The system which generated this result transmitted reference range : <0.50 MG/L FEU. The reference range was not used to interpr et this result as normal/abnormal . VERITO (test code = REGARDING D-DIMER VERITO) RESULTS: The 98% NPV (Negative Predictive Value) for DVT/PE exclusion is 0.50 mg/L FEU as suggested by the gis web developer and as approved by the FDA. Lab Interpretation Normal (test code = 78583-4) [facility], [id number] 19:10:58 Test Item Value Reference Range Interpretation Comments D-Dimer, Quant (test 0.47 See_Comment Final I nformation code = 41456-5) (Auto Output ) [Automated message] The system which generated this result transmitted reference range : <0.50 MG/L FEU. The reference range was not used to interpr et this result as normal/abnormal . VERITO (test code = REGARDING D-DIMER VERITO) RESULTS: The 98% NPV (Negative Predictive Value) for DVT/PE exclusion is 0.50 mg/L FEU as suggested by the gis web developer and as approved by the FDA. Lab Interpretation Normal (test code = 85412-8) [facility], [id number] 19:10:58 Test Item Value Reference Range Interpretation Comments D-Dimer, Quant (test 0.47 See_Comment Final I nformation code = 91648-1) (Auto Output ) [Automated message] The system which generated this result transmitted reference range : <0.50 MG/L FEU. The reference range was not used to interpr et this result as normal/abnormal . VERITO (test code = REGARDING D-DIMER VERITO) RESULTS: The 98% NPV (Negative Predictive Value) for DVT/PE exclusion is 0.50 mg/L FEU as suggested by the gis web developer and as approved by the FDA. Lab Interpretation Normal (test code = 20604-9) [facility] HospitalD-[id number] 19:10:58 Test Item Value Reference Range Interpretation Comments D-DIMER QUANTITATIVE 0.47 MG/L FEU <0.50 Final Information (BEAKER) (test code = (Auto Output) 771) REGARDING D-DIMER RESULTS: The 98% NPV (Negative Predictive Value) for DVT/PE exclusion is 0.50 mg/LFEU as suggested by the gis web developer and as approved by the FDA.SARS-CoV2/RT-PCR (Symptomatic ONLY)2021-09-01 18:53:55 Test Item Value Reference Interpretation Comments Range SARS-COV2/RT-PCR Negative Negative The SARS-Co V-2 (test code = target nucleic 26065-8) acids are not detected in thi s [...] revoked sooner. Fact Sheet for Healthcare Providers: https://www.Groove/Documents/Xp ert%20Xpress%20SAR S%20CoV-2/Fact%20S heets/302-1632%20S ARS-COV-2%20HEALTH CARE%20PROVIDERS%2 0FACT%20SHEET.pdf Fact Sheet for Healthcare Patients: https://www.Groove/Documents/Xp ert%20Xpress%20SAR S%20CoV-2/Fact%20S heets/302-1201%20S ARS-COV-2%20PATIEN T%20FACT%20SHEET.p df Lab Interpretation Normal (test code = 25113-8) [facility]2021-09-01 18:53:55 Test Item Value Reference Interpretation Comments Range SARS-COV2/RT-PCR Negative Negative The SARS-Co V-2 (test code = target nucleic 90100-2) acids are not detected in thi s [...] revoked sooner. Fact Sheet for Healthcare Providers: https://www.Groove/Documents/Xp ert%20Xpress%20SAR S%20CoV-2/Fact%20S heets/302-3802%20S ARS-COV-2%20HEALTH CARE%20PROVIDERS%2 0FACT%20SHEET.pdf Fact Sheet for Healthcare Patients: https://www.Groove/Documents/Xp ert%20Xpress%20SAR S%20CoV-2/Fact%20S heets/302-3801%20S ARS-COV-2%20PATIEN T%20FACT%20SHEET.p df Lab Interpretation Normal (test code = 26694-3) [facility]pt[facility]2021-09-01 18:53:55 Test Item Value Reference Interpretation Comments Range SARS-COV2/RT-PCR Negative Negative The SARS-Co V-2 (test code = target nucleic 68739-3) acids are not detected in thi s [...] revoked sooner. Fact Sheet for Healthcare Providers: https://www.Groove/Documents/Xp ert%20Xpress%20SAR S%20CoV-2/Fact%20S heets/302-3802%20S ARS-COV-2%20HEALTH CARE%20PROVIDERS%2 0FACT%20SHEET.pdf Fact Sheet for Healthcare Patients: https://www.Groove/Documents/Xp ert%20Xpress%20SAR S%20CoV-2/Fact%20S heets/302-3801%20S ARS-COV-2%20PATIEN T%20FACT%20SHEET.p df Lab Interpretation Normal (test code = 24991-9) [facility])2021-09-01 18:53:55 Test Item Value Reference Range Interpretation Comments SARS-COV2/RT-PCR Negative Negative The SARS-Co V-2 target (test code = nucleic acids a re not 9806811) detected in thi s specimen. Negative result [...] individuals suspected of CO VID-19 [facility]. This test has been authorized [...] revoked sooner. Fact Sheet for Healthcare Providers: https://www.Opiatalk m/Documents/Xpert%20Xpress%20SARS%20CoV-2/Fact%20Sheets/3023802%69MGGC-XIF-5%20 HEALTHCARE%20PROVIDERS%20FACT%20SHEET.pdf Fact Sheet for Healthcare Patients: https://www.Omise/Documents/Xpert%20Xp ress%20SARS%20CoV-2/Fact%20Sheets/3023801%70EHBW-TST-4%20PATIENT%20FACT%20SHEET .pdfTROPOVELMA [id number] 18:23:25 Test Item Value Reference Range Interpretation [...] failure, acidosis, acute neurological disease, and persistent tachyarrhythmia.Television News Anchor ID - ERINYCT, BRAIN, WITHOUT [id number] 18:21:00Unlisted Reason for Exam - Click Yes and Enter Reason Below->No[facility] : 1995 Sex: FFINAL [...] Signed: Lissette LindseyMDReport Verified Date/Time: 09/01/2021 18:21:53 [facility] [id number] 18:16:13 Test Item Value Reference Range Interpretation [...] S NOT APPLICABLE FOR DIALYSIS PATIEN TS. Television News Anchor ID - ERINYOperator ID - ERINYOperator ID - ERINYOperator ID - ERINYOperator ID - ERINYOperator ID - ERINYOperator ID - ERINYOperator ID - ERINYOperator ID - ERINYOperator ID - ERINYOperator ID- ERINYOperator ID - ERINYOperator ID - ERINYRAD, CHEST, 1 VIEW, NON [id number] 18:11:00Reason for exam:->HEADACHEReason for exam:->LOSS OF CONSCIOUSNESSShould this be performed at the bedside?->Yes [facility] 1995 Sex: FFINAL REPORT RAD, CHEST, 1 VIEW, NON DEPT TECHNIQUE: Frontal view(s) of the chest. INDICATION: HEADACHELOSS OF CONSCIOUSNESS COMPARISON: 11/21/2020 chest radiograph FINDINGS/IMPRESSION: Lines/Tubes: None Lungs/pleura: Lungs are clear and well inflated. No pleural effusion.No pneumothorax. Heart and Mediastinum: Unremarkable. Soft Tissues and Bones: Cholecystectomy clips in the right upper quadrant of the abdomen. Signed: Libia Sanabriaepevon Verified Date/Time: 09/01/2021 18:11:00 CBC W/PLT COUNT & AUTO [id number] 18:08:05 Test Item Value Reference Range Interpretation [...] NA (test code = 135 mmol/L 135-145 2942971771) K (test code = 3.9 mmol/L 3.5-5.0 2392251357) CL (test code = 104 mmol/L 98-108 6701001414) CO2 TOTAL (test code 28 mmol/L 23-31 = 9512638870) AGAP (test code = 2-16 2653666550) BUN (test code = 11 mg/dL 7-23 9587179665) GLUCOSE (test code = 96 mg/dL 70-110 3248826464) CREATININE (test code 0.55 mg/dL 0.50-1.04 = 3453740363) CALCIUM (test code = 8.9 mg/dL 8.6-10.6 4961835911) eGFR (test code = mL/min/1.73m2 9924242425) VERITO (test code = VERITO) Association of [...] or urine or abnormalities in imaging tests). [facility]2021[facility] 17:09:39 Test Item Value Reference Range Interpretation Comments APPEARANCE (test code = Clear Clear 5400577452) COLOR (test code = Yellow Yellow 5026530086) PH (test code = 4.8-8.0 8721907751) SP GRAVITY (test code = 1.003-1.030 6774150095) GLU U QUAL (test code = Normal Normal 8950911336) BLOOD (test code = Negative Negative 0039492957) KETONES (test code = Negative Negative 8853612594) PROTEIN (test code = Negative Negative 2887-8) UROBILIN (test code = Normal Normal 5012407688) BILIRUBIN (test code = Negative Negative 1191793667) NITRITE (test code = Negative Negative 3133017230) LEUK MICHAEL (test code = Negative Negative 2423973247) RBC/HPF (test code = <1 See_Comment [Autom ated message] 8462617320) The system [employer] generated this result transmitted ref erence range: 0 - 3 HP F. The reference range was not used to int erpret this result as normal/abnormal . WBC/HPF (test code = <1 See_Comment [Autom ated message] 7902657950) The system [employer] generated this result transmitted ref erence range: 0 - 5 HP F. The reference range was not used to int erpret this result as normal/abnormal . BACTERIA (test code = Negative Negative 7950510714) MUCOUS (test code = Slight Negative LPF A 0759034379) SQ EPITH (test code = HPF 8951679454) Lab Interpretation (test Abnormal code = 18004-4) [facility] CenterHEPAT[facility] FUNCTION PANEL (32133) (ALB,T.PRO,BILI T,BU/BC,ALT,AST,ALK PHOS)2021-04-03 17:08:52 Test Item Value Reference Range Interpretation Comments TOTAL BILI (test code = 3456326738) 0.3 mg/dL 0.1-1.1 BILI UNCON (test code = 2625384036) 0.2 mg/dL 0.1-1.1 BILI CONJ (test code = 0057272027) 0.0 mg/dL 0.0-0.3 T PROTEIN (test code = 9251580348) 7.3 g/dL 6.3-8.2 ALBUMIN (test code = 4512171757) 4.1 g/dL 3.5-5.0 ALK PHOS (test code = 0608208079) 70 U/L 34-122 ALTv (test code = 1742-6) 18 U/L 5-35 AST(SGOT) (test code = 6637668153) 35 U/L 13-40 Lab Interpretation (test code = Normal 12441-2) [facility] CenterLIPASE2021-08-23 17:08:52 Test Item Value Reference Range Interpretation Comments LIPASE (test code = 8254650720) 18 U/L 0-220 Lab Interpretation (test code = Normal 03098-4) [facility] CenterCBC WITH [id number] 16:51:50 Test Item Value Reference Range Interpretation Comments WBC (test code = See_Comment [Automated 6809-2) message] The sy stem which generated this result transmitted reference range : 4.30 - 11.10 10*3/?L. The reference range was not used to interpret this result as normal/abnormal . RBC (test code = See_Comment [Automated 951-8) message] The sy stem which generated this [...] RDW-SD (test code = 39.4 fL 39.0-49.9 41392-6) RDW-CV (test code = 14.4 % 12.0-15.5 788-0) PLT (test code = See_Comment [Automated 777-3) message] The sy stem which generated this result transmitted reference range : 166 - 358 10*3/ ?L. The reference r ryann was not used to interpret this result as normal/abnormal . MPV (test code = 9.8 fL 9.5-12.9 97286-9) NRBC/100 WBC (test See_Comment [Automat ed code = 5053184756) message] The system which generated this result transmitted reference range : 0.0 - 10.0 /100 WBCs. The refer ence range was not u sed to interpret th is result as normal/abnormal . NRBC x10^3 (test code <0.01 See_Comment [Auto mated = 0162865664) message] The s ystem which generated this result transmitted reference range : 10*3/?L. The reference range was not used to interpret this result as normal/abnormal . GRAN MAT (NEUT) % 54.3 % (test code = 770-8) IMM GRAN % (test code 0.20 % = 1956108064) LYMPH % (test code = 33.6 % 736-9) MONO % (test code = 8.6 % 5905-5) EOS % (test code = 2.2 % 713-8) BASO % (test code = 1.1 % 706-2) GRAN MAT x10^3(ANC) 2.46 10*3/uL 1.88-7.09 (test code = 0354025082) IMM GRAN x10^3 (test <0.03 0.00-0.06 code = 3268781853) LYMPH x10^3 (test code 1.52 10*3/uL 1.32-3.29 = 731-0) MONO x10^3 (test code 0.39 10*3/uL 0.33-0.92 = 742-7) EOS x10^3 (test code = 0.10 10*3/uL 0.03-0.39 711-2) BASO x10^3 (test code 0.05 10*3/uL 0.01-0.07 = 704-7) Lab Interpretation Abnormal (test code = 24508-0) [facility] CenterCOMPREHENSIVE METABOLIC [id number] 02:06:00 Test Item Value Reference Range Interpretation [...] S NOT APPLICABLE FOR DIALYSIS PATIEN TS. Television News Anchor ID - JUSTINOperator ID - JUSTINOperator ID - JUSTINOperator ID - JUSTINOperator ID - JUSTINOperator ID - JUSTINOperator ID - JUSTINOperator ID - JUSTINOperator ID - JUSTINOperator ID - JUSTINOperator ID - JUSTINOperator ID - JUSTINOperator ID - JUSTINOperator ID - JUSTINOperator ID - JUSTINOperator ID - JUSTINOperator ID - JUSTINOperator ID - JUSTINOperator ID - JUSTINCBC W/PLT COUNT & AUTO [id number] 01:38:00 Test Item Value Reference Range Interpretation [...] PERCENT (BEAKER) (test code = 2801) CT, [id number] 20:33:00Unlisted Reason for Exam - Click Yes and Enter Reason Below->NoWill this procedure require oral contrast?->No [facility] 1995 Sex: [...] no imaging follow-up recommended. Signed: Nita Matta MDRort Verified Date/Time: 11/21/2020 20:33:54 Reading Location: [address] Consult Reading Room COMPREHENSIVE METABOLIC [id number] 18:33:00 Test Item Value Reference Range Interpretation [...] S NOT APPLICABLE FOR DIALYSIS PATIEN TS. Television News Anchor ID - JUSTINOperator ID - JUSTINOperator ID - JUSTINOperator ID - JUSTINOperator ID - JUSTINOperator ID - JUSTINOperator ID - JUSTINOperator ID - JUSTINOperator ID - JUSTINOperator ID - JUSTINOperator ID - JUSTINOperator ID - JUSTINOperator ID - JUSTINOperator ID - JUSTINOperator ID - JUSTINOperator ID - [id number] 18:33:00 Test Item Value Reference Range Interpretation Comments LIPASE (BEAKER) (test code = 749) 8 U/L 6-51 Television News Anchor ID - JUSTINOperator ID - JUSTINOperator ID - JUSTINOperator ID - KENDRICK CBC W/PLT COUNT & AUTO [id number] 18:16:00 Test Item Value Reference Range Interpretation [...] (BEAKER) (test code = 2801) URINALYSIS W/ [id number] 18:13:00 Test Item Value Reference Range Interpretation [...] = 2795) RAD, CHEST, 1 VIEW, NON [id number] 16:45:00Reason for exam:->fever and abdominal painShould this be performed at the bedside?->Yes [facility] 1995 Sex: FFINAL REPORT CHEST AP PORTABLE History provided: Fever, abdominal pain Radiographically normal-appearing heart and lungs. Signed: Polo Onofreort Verified Date/Time:11/21/2020 16:45:24 Reading Location: [facility] Radiology Reading Room TISSUE EXAM 2020-11-10 15:53:00Surgical Pathology Report Case: [id number] Authorizing Provider: Baetriz Martinez MD Collected: 11/08/2020 04:08 PM Ordering Location: [facility] Received: 11/09/2020 08:07 AM SERVICES Pathologist: Gwen Velez MD Specimen: Uterus w/Cervix & Bilateral Fallopian Tubes, UTERUS, CERVIX AND BILATERAL FALLOPIAN TUBES. UTERUS WITH CERVIX AND BILATERAL FALLOPIAN TUBES, HYSTERECTOMY AND BILATERAL SALPINGECTOMY:ENDOMETRIUM: - PROLIFERATIVE ENDOMETRIUMMYOMETRIUM: - NO SIGNIFICANT PATHOLOGIC ALTERATIONRIGHT FALLOPIAN TUBE: - PARATUBAL CYSTLEFT FALLOPIAN TUBE: - NO SIGNIFICANT PATHOLOGIC ALTERATIONMG/pl Signing Pathologist Direct Phone Line: [phone] signed by Gwen Velez MD on 11/10/2020 at 3:53 [id number] or frequent menstruationUterus, cervix, and bilateral fallopian [...] with fimbriated end measuring 5.0 cm in l ength and 0.7 cm in diameter and attached left fallopian tube with fimbriated end measuring 4.5 cm in length with 0.5 cm in diameter. The right fallopian tube has a paratubal cyst (0.5 x 0.3 x 0.3 cm).The cervix is pink-han and smooth with no [...] submitted along with right paratubal cyst; A6, sales and service representative cross sections of right fallopian tube; A7, left fimbriated, entirely submitted; A8, sales and service representative cross sections of left fallopian tube. MG/pl Performed [facility], Department of Pathology, [address] [place] [address], [place] [address], [facility], [facility] of [facility], [address] [place] [address], [facility]fB[facility], [facility] of [facility], [address] [place] [address], KRIN-COV2/INFLUENZA/RSV [id number] 20:30:00 Test Item Value Reference Range Interpretation Comments SARS-COV2/RT-PCR Positive Negative AA (test code = 1339061) INFLUENZA A RT-PCR Negative Negative (test code = 1842542) INFLUENZA B RT-PCR Negative Negative (test code = 7816777) RSV RT-PCR (test Negative Negative Performance of the Xpert code = 4269268) Xpress SARS- CoV-2/Flu/RSV test has only b een established in nasopharyngeal swab specimens. Use of the Xpert Xpress SARS-CoV-2/Flu/ RSV test with other spec imen types has not been as sessed and performance characteristics are unknown. As wit h any molecular test, mutations within the targ eted genetic regions identified by t Xpert Xpress SARS-CoV -2/Flu/RSV test could affe [...] sooner.Fact She et for Healthcare Prov iders: https://www.46elks.Medical Depot/D ocuments/Xpert% 20Xpress%2 2ROGZ-GvA-4-Flu -RSV/302-4 508%20Rev.%20B% 20HCP%20Fa ct%20Sheet.pdfF act Sheet for Healthcare Patients: https://www.Y Combinator/D ocuments/Xpert% 20Xpress%2 9UYQY-DoL-6-Flu -RSV/302-4 507%20Rev.%20B% 20Patient% 20Fact%20Sheet. pdf SCREEN, [id number] 13:18:00 Test Item Value Reference Range Interpretation Comments TEST URINE (BEAKER) (test Negative code = 583) BASIC METABOLIC [id number] 15:01:00 Test Item Value Reference Range Interpretation [...] S NOT APPLICABLE FOR DIALYSIS PATIEN TS. Television News Anchor ID - tuit72Tuccdqaf ID - fyhh78Erjyvmow ID - zmkm45Kigpwsdt ID - yjtj66Afwyxxvi ID - fbym67Knnhbqzc ID - mbzd71Unhvfmyd ID - ybqb59Qrmhfrcj ID - wxdh85Kbvdrezq ID - zwqz01Bggelbhl ID - dfen06Fehlmsfc ID - gkue25Znutjimo ID - lntd29Xvaxnbth ID - [id number] W/PLT COUNT & AUTO [id number] 14:33:00 Test Item Value Reference Range Interpretation [...] PERCENT (BEAKER) (test code = 2801) TISSUE [id number] 09:31:00Surgical Pathology Report Case: [id number] Authorizing Provider: Beatriz Martinez MD Collected: 08/23/2020 08:08 AM Ordering Location: [facility] Received: 08/23/2020 11:27 AM SERVICES Pathologist: Gwen Velez MD Specimens: A) - Curettings, Endocervical B) - Curettings, Endometrial A. ENDOCERVIX, CURETTINGS: - BENIGN ENDOCERVICAL MUCOSAB. ENDOMETRIUM, CURETTINGS: - ENDOMETRIAL POLYP - BACKGROUND PROLIFERATIVE ENDOMETRIUM Signing Pathologist Direct Phone Line: [phone] lectronically signed by Gwen Velez MD on 08/24/2020 at 9:31 [id number] abdominal pain A. Curettings endocervical; B. Currettings, [...] also submitted into B1. MG/pl A-B: Performed [facility], Department of Pathology, [address] [place] [address], F[address] [facility], Department of Pathology, [address] [place] [address], [facility] Department of Pathology, [address] [place] [address], GAMDKLDAL SCREEN, [id number] 06:27:00 Test Item Value Reference Range Interpretation Comments TEST URINE (BEAKER) (test Negative code = 583) SARS-COV2/RT-PCR ([facility])2020-08-20 07:08:00 Test Item Value Reference Range Interpretation Comments SARS-COV2/RT-PCR (test Negative Not Detected, Negative, code = 1945483) See external report for linked test SARS-COV-[address]ING [address] [facility] (test code = 5181238) Negative result for this test determines that [...] the Stevenson SARS-CoV-2 assay.Fact Sheet for Healthcare Providers:https://www.AirTight Networks.Magency Digital/lucía/RT_SAR N-ZsZ-4_HKK_Gdbz_Kccxg_01-967161.pdfFact Sheet for Healthcare Patients:https://www.AirTight [employer]/s al/FM_WSXM-WsK-9_Ktqkdqa_Bklz_Lpipg_IH_25-951350P4.pdfPerforming Laboratory:[address] [address] BASIC METABOLIC [id number] 11:08:00 Test Item Value Reference Range Interpretation [...] 1092) DATA TO CALCULA TE ESTIMATED GFR. Television News Anchor ID - LITOOperator ID - LITOOperator ID - LITOOperator ID - LITOOperator ID - LITOOperator ID - LITOOperator ID - LITOOperator ID - LITOOperator ID - LITOOperator ID - LITOOperator ID - LITOOperator ID - LITOOperator ID - LITOCBC W/PLT COUNT & AUTO [id number] 10:57:00 Test Item Value Reference Range Interpretation [...] in Respiratory specimen by KATIE with probe [id number] 03:49:53 Test Item Value Reference Range Interpretation Comments SARS-CoV-2 (COVID-19) RNA Not detected Not-Detected [Presence] in Respiratory specimen by KATIE with probe detection (test code = 78007-5) XR CHEST 1 [id number] 16:18:43 No acute cardiopulmonary abnormality. Preliminary Report [...] reviewed this study and agree with the abovereport.[facility] TROPONIN [id number] 16:03:00 Test Item Value Reference Range Interpretation Comments TROPONIN I (test <0.012 See_Comment [Automated code = 8236242936) message] The system which generated this result [...] ? Lab Interpretation Normal (test code = 13133-8) [facility] CenterD-[id number] 16:00:00 Test Item Value Reference Interpretation Comments Range D-DIMER (test code = See_Comment H [Autom ated 7530576300) message] The system which generated this result [...] diagnosis. Lab Interpretation Abnormal (test code = 42859-4) [facility] CenterCOVID-19 (ID NOW RAPID TESTING)2020-05-22 16:00:00 Test Item Value Reference Range Interpretation Comments SARS-CoV-2 Rapid ID NOW Not Detected Not Detected (test code = 63424-0) VERITO (test code = VERITO) ID NOW COVID-19 Assay is an isothermal nucleic acid amplification test intended for the qualitative detection of nucleic acid from SARS-CoV-2 viral RNA in nasopharyngeal (PERFORATOR) specimens. It is used under Emergency Use [...] indicated. Lab Interpretation Normal (test code = 44696-6) [facility] CenteraPTT2020-10-11 15:53:00 Test Item Value Reference Range Interpretation Comments APTT Patient (test See_Comment [Automat ed code = 3173-2) message] The system which generated this result transmitted reference range : 23 - 38 Seconds . The reference range was not used to interpr et this result as normal/abnormal . VERITO (test code = VERITO) The [facility] patient population mean normal value for aPTT is 30 seconds. Lab Interpretation Normal (test code = 14277-4) [facility] CenterCOMP. METABOLIC PANEL (47973)2020-05-22 15:52:00 Test Item Value Reference Range Interpretation Comments NA (test code = 138 mmol/L 135-145 6071860517) K (test code = 3.7 mmol/L 3.5-5 1433220754) CL (test code = 102 mmol/L 98-108 0395458789) CO2 TOTAL (test code = 29 mmol/L 23-31 6897213520) AGAP (test code = 2-16 1944465157) BUN (test code = 7 mg/dL 7-23 0699160996) GLUCOSE (test code = 65 mg/dL 70-110 L 7920523901) CREATININE (test code = 0.70 mg/dL 0.5-1.04 4094613271) TOTAL BILI (test code = 0.4 mg/dL 0.1-1.5 7772283497) CALCIUM (test code = 9.3 mg/dL 8.6-10.6 5124063336) T PROTEIN (test code = 7.8 g/dL 6.3-8.2 7575876839) ALBUMIN (test code = 4.2 g/dL 3.5-5 7343864360) ALK PHOS (test code = 79 U/L 34-122 1870573161) ALTv (test code = 12 U/L 5-35 1742-6) AST(SGOT) (test code = 25 U/L 13-40 4602531183) eGFR Calculation mL/min/1.73m2 (Non-) (test code = 9263365287) eGFR Calculation mL/min/1.73m2 () (test code = 6658814238) VERITO (test code = VERITO) Association of [...] tests). Lab Interpretation Abnormal (test code = 94460-0) [facility] Test Item Value Reference Range Interpretation Comments APPEARANCE (test code = Clear Clear 5330191052) COLOR (test code = Straw Yellow A 8056271286) PH (test code = 4.8-8.0 7963158475) SP GRAVITY (test code = 1.003-1.030 8284122687) GLU U QUAL (test code = Normal Normal 8674791943) BLOOD (test code = Negative Negative 2139693926) KETONES (test code = Negative Negative 0924311257) PROTEIN (test code = Negative Negative 2887-8) UROBILIN (test code = Normal Normal 0743147268) BILIRUBIN (test code = Negative Negative 1889381725) NITRITE (test code = Negative Negative 5376443250) LEUK MICHAEL (test code = Negative Negative 3497352484) RBC/HPF (test code = See_Comment [Autom ated message] 0998876487) The system [employer] generated this result transmitted ref erence range: 0 - 3 HP F. The reference range was not used to int erpret this result as normal/abnormal . WBC/HPF (test code = <1 See_Comment [Autom ated message] 7966360700) The system [employer] generated this result transmitted ref erence range: 0 - 5 HP F. The reference range was not used to int erpret this result as normal/abnormal . BACTERIA (test code = Negative Negative 3245846320) SQ EPITH (test code = HPF 3085886209) Lab Interpretation (test Abnormal code = 83955-4) [facility] / [id number] 15:51:00 Test Item Value Reference Range Interpretation Comments PROTIME PATIENT (test See_Comment [Auto mated message] code = 5964-2) The system [employer] generated this result transmitted ref erence range: 12.0 - 1 4.7 Seconds. The re ference range was not u sed to interpret this result as normal/abnor mal. INR (test code = 6301-6) Nor mal INR <1.1; Warfarin Therap eutic range 2.0 to 3. 0 or 2.5 to 3.5, dep ending upon the indica tions. Lab Interpretation (test Normal code = 13976-2) [facility], [id number] 15:51:00 Test Item Value Reference Range Interpretation Comments LIPASE (test code = 5371735711) 32 U/L 0-220 Lab Interpretation (test code = Normal 36719-5) [facility]CB WITH [id number] 15:40:00 Test Item Value Reference Range Interpretation Comments WBC (test code = See_Comment [Automated 9090-2) message] The sy stem which generated this result transmitted reference range : 4.30 - 11.10 10*3/?L. The reference range was not used to interpret this result as normal/abnormal . RBC (test code = See_Comment [Automated 769-8) message] The sy stem which generated this [...] RDW-SD (test code = 41.2 fL 39-49.9 96626-5) RDW-CV (test code = 17.3 % 12-15.5 H 788-0) PLT (test code = See_Comment [Automated 777-3) message] The sy stem which generated this result transmitted reference range : 166 - 358 10*3/ ?L. The reference r ryann was not used to interpret this result as normal/abnormal . MPV (test code = 9.8 fL 9.5-12.9 17596-7) NRBC/100 WBC (test See_Comment [Automat ed code = 4100178456) message] The system which generated this result transmitted reference range : 0.0 - 10.0 /100 WBCs. The refer ence range was not u sed to interpret th is result as normal/abnormal . NRBC x10^3 (test code <0.01 See_Comment [Auto mated = 5066294310) message] The s ystem which generated this result transmitted reference range : 10*3/?L. The reference range was not used to interpret this result as normal/abnormal . GRAN MAT (NEUT) % 50.9 % (test code = 770-8) IMM GRAN % (test code 0.20 % = 8992868215) LYMPH % (test code = 33.3 % 736-9) MONO % (test code = 8.4 % 5905-5) EOS % (test code = 5.4 % 713-8) BASO % (test code = 1.8 % 706-2) GRAN MAT x10^3(ANC) 2.55 10*3/uL 1.88-7.09 (test code = 1476631390) IMM GRAN x10^3 (test <0.03 0-0.06 code = 5617824950) LYMPH x10^3 (test code 1.67 10*3/uL 1.32-3.29 = 731-0) MONO x10^3 (test code 0.42 10*3/uL 0.33-0.92 = 742-7) EOS x10^3 (test code = 0.27 10*3/uL 0.03-0.39 711-2) BASO x10^3 (test code 0.09 10*3/uL 0.01-0.07 H = 704-7) Lab Interpretation Abnormal (test code = 22905-1) [facility] [id number] 15:21:00 Test Item Value Reference Range Interpretation Comments POCT PREG (test code = 1605) negative On board controls acceptable with present C Line (test code = 3574) POCT PREG LOT # (test code = 3575) [id number] POCT PREG TEST DATE (test 2021-04-11 code = 3576) Lab Interpretation (test code = Normal 46362-3) [facility]
[2022-05-06 18:51] LABS: Potassium 3.1 mmol/L (3.5-5.1)
--- NOTE | 2022-05-06 19:49 | RAD REPORT ---
EXAM DESCRIPTION: CT - CTHCSPWOC - 05/06/2022 7:26 pm CLINICAL HISTORY: head injury COMPARISON: <Comparisons>CT head 04/25/2022, CT head and cervical spine 02/20/2012 TECHNIQUE: Axial 5 mm thick images of the head were obtained. Axial 2 mm thick images of the cervic al spine were obtained with sagittal and coronal reconstruction images generated and reviewed. All CT scans are performed using dose optimization technique as appropriate and may include automated exposure control or mA/KV adjustment according to patient size. FINDINGS: No intracranial hemorrhage, mass or midline shift. Exam has motion degradation which limit s assessment of the sulci. At the cerebral convexity, cortical edema and sulcal effacement are not se en. An overall significant cerebral edema is not suspected. Ventricles are similar to the 2 prior belkys dies. An acute cortical based infarction is not seen. No extra-axial fluid collections. Mastoid air c ells and paranasal sinuses are clear. No globe or orbit abnormality seen. Cervical detail is limited somewhat by motion as well. Cervical body height and alignment are normal. No disk space narrowing. No fracture or acute bony abnormality. Central canal detail is inherently limited. No paraspinal mass or hematoma. IMPRESSION: Motion degraded study shows no hemorrhage, mass effect or measurable cerebral edema. Motion degraded study shows no fracture, alignment abnormality or other acute finding.
[2022-05-06 20:09] LABS: SARS-CoV-2 Antigen Rapid Res Negative (Negative)
--- NOTE | 2022-05-06 20:14 | ER ---
Nurse's Notes [facility] Name: Cheyanne Lopes Age: 26 yrs Sex: Female : 1995 Arrival Date: 05/06/2022 Time: 18:07 Bed 18 Private MD: Diagnosis: Breakthrough seizure;Closed Head injury;Hypokalemia Presentation: 05/06 18:07 Chief complaint: EMS states: total of 6 witnessed seizures by tenriism attendees and EMS ss personnel lasting only seconds. Coronavirus screen: Client denies travel out of the [place] in the last 14 days. Ebola Screen: Patient denies exposure to infectious person. Patient denies travel to an Ebola-affected area in the 21 days before illness onset. Initial Sepsis Screen: Does the patient meet any 2 criteria? No. Patient's initial sepsis screen is negative. Does the patient have a suspected source of infection? No. Patient's initial sepsis screen is negative. Risk Assessment: Do you want to hurt yourself or someone else? Patient reports no desire to harm self or others. Onset of symptoms was May 06, 2022. 18:07 Method Of Arrival: EMS: [facility] ss 18:07 Acuity: GERI 2 ss Historical: - Allergies: 05/07 01:59 No Known Allergies; ll3 - Home Meds: 05/06 22:27 carvedilol 6.25 mg Oral tab 1 tab 2 times per day [Active]; Chemo pills [Active]; ll3 diclofenac sodium 75 mg Oral TbEC 1 tab 2 times per day [Active]; hydroxyzine HCl 50 mg Oral tab 1 tab [Active]; oxcarbazepine 150 mg Oral tab 2 times per day [Active]; Risperdal 2 mg Oral tab 1 tab once daily [Active]; Valtrex 500 mg Oral tab 1 tab 2 times per day [Active]; Trileptal 150 mg oral tab [Active]; - PMHx: 18:09 Anemia; Depression; High Blood Pressure; Seizure; ss - PSHx: 18:09 Cholecystectomy; hysterectomy; ss - Immunization history:: Adult Immunizations unknown. - Social history:: Smoking status: unknown. - Family history:: not pertinent. - Hospitalizations: : No recent hospitalization is reported. Screenin:05 Abuse screen: Denies threats or abuse. Nutritional screening: No deficits noted. ll1 Tuberculosis screening: No symptoms or risk factors identified. Fall Risk Secondary diagnosis (15 points) seizures, IV access (20 points). Gait- Impaired (20 pts.). Total Singh Fall Scale indicates High Risk Score (45 or more points). Fall prevention measures have been instituted. Side Rails Up X 2 Placed Close to Nursing Station Frequent Obs/Assessments Occuring Family Present and informed to notify staff if the need to leave the bedside As available patient and family educated on Fall Prevention Program and Strategies. Assessment: 18:10 General: Appears distressed, Behavior is unresponsive. Pain: Denies pain. Neuro: ll1 Reports seizures x 6 today, still posticital. Cardiovascular: Heart tones S1 S2. Respiratory: Airway is patent Trachea midline Respiratory effort is even, unlabored. 19:00 Reassessment: Patient appears in no apparent distress at this time. No changes from ll3 previously documented assessment. Patient and/or family updated on plan of care and expected duration. Pain level reassessed. 20:00 Reassessment:. Neuro: Seizure activity noted at this time. ll3 20:07 Neuro: Seizure activity Patient is post-ictal at this time. ll3 21:21 Reassessment: Patient appears in no apparent distress at this time. Patient and/or ll3 family updated on plan of care and expected duration. Pain level reassessed. Patient is alert, oriented x 3, equal unlabored respirations, skin warm/dry/pink. 23:00 Reassessment: No changes from previously documented assessment. Patient and/or family ll3 updated on plan of care and expected duration. Pain level reassessed. Patient is alert, oriented x 3, equal unlabored respirations, skin warm/dry/pink. 05/07 01:20 Reassessment: Patient appears in no apparent distress at this time. No changes from ll3 previously documented assessment. Patient and/or family updated on plan of care and expected duration. Pain level reassessed. Patient is alert, oriented x 3, equal unlabored respirations, skin warm/dry/pink. Vital Signs: 05/06 18:07 BP 133 / 86; Pulse 100; Resp 19; Temp 98.2(TE); Pulse Ox 100% on Non-rebreather mask; ss 19:06 BP 123 / 81; Pulse 94; Resp 18; Pulse Ox 98% on R/A; ll1 20:05 BP 126 / 84; Pulse 71; Resp 20; Pulse Ox 100% ; ll3 21:20 BP 113 / 69; Pulse 69; Resp 19; Pulse Ox 100% on 4 lpm NC; ll3 23:00 BP 102 / 72; Pulse 65; Resp 18; Pulse Ox 98% ; ll3 05/07 01:20 BP 115 / 81; Pulse 67; Resp 20; Pulse Ox 98% on 2 lpm NC; ll3 Junior Coma Score: 05/06 19:05 Eye Response: spontaneous(4). Verbal Response: oriented(5). Motor Response: obeys ll1 commands(6). Total: 15. ED Course: 18:07 Patient arrived in ED. ss 18:09 Jonny Howell MD is Attending Physician. rn 18:09 Triage completed. ss 18:09 Arm band placed on right wrist. ss 18:10 Barbie Moeller, RN is Primary Nurse. kr3 18:10 Inserted saline lock: 20 gauge in left antecubital area, using aseptic technique. ss ,using aseptic technique. Insertion by aretha Parish RN Blood collected. 19:05 Bed in low position. Call light in reach. Side rails up X2. Seizure precautions ll1 initiated. 19:27 Head C Spine Mpr Wo Con In Process Unspecified. EDMS 20:07 Notified ED physician of other family at bedside reporting patient having seizure. mb4 20:13 Yusuf Mckenzie MD is Hospitalizing Provider. sd2 21:56 Primary Nurse role handed off by Barbie Moeller RN 05/07 01:21 No provider procedures requiring assistance completed. ll3 02:39 Cristine Kaufman, MINE is Primary Nurse. aa9 03:06 Urine Drug Screen Sent. aa9 03:06 Urine Microscopic Only Sent. aa9 Administered Medications: 05/06 18:32 Drug: Ativan (LORazepam) 1 mg Route: IVP; Site: left antecubital; kr3 18:32 Drug: Keppra (levETIRAcetam) 1000 mg Route: IV; Rate: calculated rate; Site: left kr3 antecubital; 18:33 Drug: NS 0.9% 1000 ml Route: IV; Rate: 1000 ml; Site: left antecubital; kr3 20:21 Drug: Ativan (LORazepam) 1 mg Route: IVP; Site: left antecubital; ll3 20:22 Drug: Keppra (levETIRAcetam) 1000 mg Route: IV; Rate: bolus; Site: left antecubital; ll3 20:28 Drug: Potassium Chloride 40 mEq Route: PO; ll3 Medication: 19:05 VIS not applicable for this client. ll1 Outcome: 20:14 Decision to Hospitalize by Provider. sd2 05/07 15:52 Patient left the ED. tp1 Signatures: Dispatcher [employer] EDMS Jonny Howell MD MD rn Smirch, Shelby, RN RN ss Gladys Fiore mb4 Aretha Parish RN RN ll1 Lanie Garzon [place], RN RN ll3 Zita Harris RN RN tp1 Breanne Baltazar MD MD sd2 Cristine Kaufman RN RN aa9 Barbie Moeller RN RN kr3 Corrections: (The following items were deleted from the chart) 01:20 01:19 Reassessment: No changes from previously documented assessment. Patient and/or ll3 family updated on plan of care and expected duration. Pain level reassessed. Patient is alert, oriented x 3, equal unlabored respirations, skin warm/dry/pink. ll3 02:05/06 18:09 Allergies: Unable to obtain; [facility]
--- NOTE | 2022-05-06 20:14 | EDPHYS ---
Physician Documentation [facility] Name: Cheyanne Lopes Age: 26 yrs Sex: Female : 1995 Arrival Date: 05/06/2022 Time: 18:07 Bed 18 Private MD: ED Physician Jonny Howell HPI: 05/06 18:43 This 26 yrs old Black Female presents to ER via EMS with complaints of Seizure. rn 18:43 The patient presents with a history of multiple seizures, a total of 5. Character of rn seizure(s): Loss of consciousness: the patient experienced loss of consciousness, Motor activity: generalized, Incontinence: none, Apnea: the patient did not experience apnea, Circulation: the patient did not experience evidence of pulse disturbance, Eye movements: are unknown. Seizure onset: today. Associated injury: The patient did not suffer any apparent associated injury. Current symptoms: confusion, decreased level of consciousness. The patient has experienced similar episodes in the past. The patient has not recently seen a physician. EMS reports 3 seizures at restoration, and 2 with them, generalized, has epilepsy, compliant with meds. . Historical: - Allergies: 05/07 01:59 No Known Allergies; ll3 - Home Meds: 05/06 22:27 carvedilol 6.25 mg Oral tab 1 tab 2 times per day [Active]; Chemo pills [Active]; ll3 diclofenac sodium 75 mg Oral TbEC 1 tab 2 times per day [Active]; hydroxyzine HCl 50 mg Oral tab 1 tab [Active]; oxcarbazepine 150 mg Oral tab 2 times per day [Active]; Risperdal 2 mg Oral tab 1 tab once daily [Active]; Valtrex 500 mg Oral tab 1 tab 2 times per day [Active]; Trileptal 150 mg oral tab [Active]; - PMHx: 18:09 Anemia; Depression; High Blood Pressure; Seizure; ss - PSHx: 18:09 Cholecystectomy; hysterectomy; ss - Immunization history:: Adult Immunizations unknown. - Social history:: Smoking status: unknown. - Family history:: not pertinent. - Hospitalizations: : No recent hospitalization is reported. ROS: 18:43 Unable to obtain ROS due to altered mental status. rn Exam: 18:43 Constitutional: This is a well developed, well nourished patient who is acitvely rn having seizure Head/Face: Normocephalic, atraumatic. Cardiovascular: Regular rate and rhythm. No pulse deficits. Respiratory: No increased work of breathing, no retractions or nasal flaring. Abdomen/GI: Soft, non-tender Skin: Warm, dry MS/ Extremity: Pulses equal, no cyanosis Neuro: Actively having seizure, generalized, lasted approx 30 sec. Vital Signs: 18:07 BP 133 / 86; Pulse 100; Resp 19; Temp 98.2(TE); Pulse Ox 100% on Non-rebreather mask; ss 19:06 BP 123 / 81; Pulse 94; Resp 18; Pulse Ox 98% on R/A; ll1 20:05 BP 126 / 84; Pulse 71; Resp 20; Pulse Ox 100% ; ll3 21:20 BP 113 / 69; Pulse 69; Resp 19; Pulse Ox 100% on 4 lpm NC; ll3 23:00 BP 102 / 72; Pulse 65; Resp 18; Pulse Ox 98% ; ll3 05/07 01:20 BP 115 / 81; Pulse 67; Resp 20; Pulse Ox 98% on 2 lpm NC; ll3 Boston Coma Score: 05/06 19:05 Eye Response: spontaneous(4). Verbal Response: oriented(5). Motor Response: obeys ll1 commands(6). Total: 15. MDM: 18:09 Patient medically screened. rn 18:50 ED course: Pt awake now, family reports was standing, told someone they felt like a rn seizure was coming, fell flat on ground from standing without being caught, and hit head. Patient alert and talking now, states head hurts. . 18:58 Transition of care: After a detail discussion of the patient's case, care is rn transferred to Breanne Baltazar MD. 20:12 Transition of care: Care assumed from Jonny Howell MD. ED course: Pt did have another sd2 seizure per family at bedside. Given additional 1 mg Ativan IV and loaded with additional 1g of Keppra. Pt to be admitted to hospitalist service at this time for continued management. . 05/06 18:12 Order name: CBC with Diff; Complete Time: 19:02 rn 05/06 18:12 Order name: Basic Metabolic Panel; Complete Time: 19: rn 05/06 18:12 Order name: Urine Drug Screen; Complete Time: 03:26 rn 05/06 18:12 Order name: Urine Microscopic Only; Complete Time: 03: 05/06 18:42 Order name: SARS RAPID; Complete Time: 20:10 05/07 02:47 Order name: CBC with Automated Diff; Complete Time: 03: [facility] 05/07 03:01 Order name: Urine Dipstick-Ancillary; Complete Time: 03: [facility] 05/07 03:14 Order name: Basic Metabolic Panel; Complete Time: 03: [facility] 05/07 03:14 Order name: Phosphorus; Complete Time: 03: [facility] 05/07 03:14 Order name: Lipid Profile; Complete Time: 03: [facility] 05/07 03:14 Order name: T4 Free; Complete Time: : [facility] 05/07 03:14 Order name: Magnesium; Complete Time: : [facility] 05/07 03:14 Order name: Thyroid Stimulating Hormone; Complete Time: 03: [facility] 05/06 18:12 Order name: IV Start; Complete Time: 18:13 05/06 18:12 Order name: Urine Dipstick-Ancillary (obtain specimen); Complete Time: 03: 05/06 18:12 Order name: Urine Test (obtain specimen); Complete Time: 03: 05/06 18:12 Order name: EKG; Complete Time: 18:13 05/06 18:12 Order name: EKG - Nurse/Tech; Complete Time: 18:13 05/06 19:23 Order name: Head C Spine Mpr Wo Con; Complete Time: 19:57 [facility] 05/07 09:42 Order name: CT [facility] 05/07 13:54 Order name: RAD [facility] 05/06 18:12 Order name: Cardiac monitoring; Complete Time: 18:13 05/06 18:12 Order name: O2 Sat Monitoring; Complete Time: 18:13 rn Administered Medications: 18:32 Drug: Ativan (LORazepam) 1 mg Route: IVP; Site: left antecubital; kr3 18:32 Drug: Keppra (levETIRAcetam) 1000 mg Route: IV; Rate: calculated rate; Site: left kr3 antecubital; 18:33 Drug: NS 0.9% 1000 ml Route: IV; Rate: 1000 ml; Site: left antecubital; kr3 20:21 Drug: Ativan (LORazepam) 1 mg Route: IVP; Site: left antecubital; ll3 20:22 Drug: Keppra (levETIRAcetam) 1000 mg Route: IV; Rate: bolus; Site: left antecubital; ll3 20:28 Drug: Potassium Chloride 40 mEq Route: PO; ll3 Disposition Summary: 05/06/22 20:14 Hospitalization Ordered Hospitalization Status: Observation sd2 Provider: Yusuf Mckenzie sd2 Condition: Stable sd2 Problem: an acute exacerbation sd2 Symptoms: have improved sd2 Bed/Room Type: Standard sd2 Location: [facility] ER HOLD(05/06/22 20:18) Room Assignment: ERHOLD-(05/06/22 20:18) mw Diagnosis - Breakthrough seizure sd2 - Closed Head injury sd2 - Hypokalemia sd2 Forms: - Medication Reconciliation Form sd2 - SBAR form sd2 Signatures: Dispatcher [employer] EDMS Lisa Jang RN RN García Chamorro PA PA jmm Nieto, Roman, MD MD rn Smirch, Shelby, RN RN Adelso Doyle RN RN ll3 Dunlop, Stephanie, MD MD sd2 Barbie Moeller RN RN kr3 Wilda Pugh PA-C [place]illa sb4 Corrections: (The following items were deleted from the chart) 19:23 18:50 Head Brain Wo Cont+CT.RAD.BRZ ordered. EDMS EDMS 20:18 20:14 Telemetry/MedSurg (observation) sd2 20:18 20:14 sd2 05/07 02:01 05/06 18:09 Allergies: Unable to obtain; ss ll3
[2022-05-06] MEDS ORDERED: POTASSIUM CL SA 10 MEQ TAB PO ONE (20:35)
--- NOTE | 2022-05-06 21:06 | P.HP ---
Certification for Inpatient Patient admitted to: Observation With expected LOS: <2 Midnights Patient will require the following post-hospital care: None Practitioner: I am a practitioner with admitting privileges, knowledge of patient current condition, hospital course, and medical plan of care. Services: Services provided to patient in accordance with Admission requirements found in Title 42 Section 412.3 of the Code of Federal Regulations <Wilda Pugh - Last Filed: 05/06/22 23:37> Patient History Date of Service: 05/06/22 Reason for admission: Seizures History of Present Illness: Patient is a 26 year old female with history of bipolar disorder, breast cancer s/p radiation, hypertension, and epilepsy who presented to the ED s/p seizure. Patient apparently had 3 seizures at nondenominational today, 2 with EMS, and then another 2 in the ED (all lasting less than 30 seconds). She was given 2 separate rounds of 1,000 mg keppra and 1 mg ativan in ED. Nursing staff believes that the most recent seizure was a pseudoseizure as she was not postictal. She did fall onto her face when the first seizure happened, so head CT was obtained and was negative. Vital signs have been stable. Labs within normal limits except for potassium of 3.1 which was repleted in ED. Patient still very sedated during my assessment after ativan and difficult to obtain history from. Mom states that patient is compliant with her lamictal and also takes chemo pills because she has some "stomach" cancer (followed by a physician in [facility]). Today's oc curence is the third time in 3 weeks that patient has been seen in this ED for breakthrough seizures. Given the recurrence, ED provider wishes to admit patient for observation. Home medications list reviewed: Yes - Past Medical/Surgical History Diabetic: No -: anxiety/depression (no meds) -: bipolar d/o (stopped seroquel early ) -: Epilepsy -: Hypertension -: Cholecystectomy -: Hysterectomy Psychosocial/ Personal History: Patient lives at home. She has a child. - Social History Smoking Status: Never smoker Alcohol use: No CD- Drugs: No Caffeine use: Yes Place of Residence: Home <KeatonWilda - Last Filed: 05/06/22 23:37> Date of Service: 05/07/22 <Eligio Barr - Last Filed: 05/07/22 14:11> Allergies No Known Drug Allergies Allergy (Verified 05/07/22 02:02) Unknown No Known Allergies Allergy (Uncoded 05/07/22 02:02) Unknown Home Medications: Ferrous Sulfate 1 tab PO DAILY 07/17/17 Vitamin [ VITAMIN*] 1 tab PO DAILY 07/17/17 levETIRAcetam [Keppra] 500 mg PO BID #60 tab 05/07/22 Review of Systems 10-point ROS is otherwise unremarkable Neurological: Seizures <Wilda Pugh - Last Filed: 05/06/22 23:37> Physical Examination - Physical Exam General: Alert, In no apparent distress, Other (sleepy, but arousable) HEENT: Atraumatic, PERRLA, EOMI, Sclerae nonicteric Neck: Supple, 2+ carotid pulse no bruit, No LAD, Without JVD or thyroid abnormality Respiratory: Clear to auscultation bilaterally, Normal air movement Cardiovascular: Regular rate/rhythm, Normal S1 S2 Gastrointestinal: Normal bowel sounds, No tenderness Musculoskeletal: No tenderness Integumentary: No rashes Neurological: Normal speech, Normal strength at 5/5 x4 extr, Normal tone - Studies Laboratory Data (last 24 hrs) 05/06/22 18:15: Sodium 141, Potassium 3.1 L, BUN 10, Creatinine 1.05, Glucose 104 05/06/22 18:15: WBC 6.10, Hgb 12.0, Hct 37.5, Plt Count 254 <Wilda Pugh - Last Filed: 05/06/22 23:37> - Studies Laboratory Data (last 24 hrs) 05/06/22 18:15: Sodium 141, Potassium 3.1 L, BUN 10, Creatinine 1.05, Glucose 10 4 05/06/22 18:15: WBC 6.10, Hgb 12.0, Hct 37.5, Plt Count 254 <Eligio Barr - Last Filed: 05/07/22 14:11> Assessment and Plan - Problems (Diagnosis) (1) Breakthrough seizure Current Visit: Yes Status: Acute (2) Hypokalemia Current Visit: Yes Status: Acute (3) Epilepsy Current Visit: Yes Status: Chronic Qualifiers: Epilepsy type: unspecified Intractability: not intractable Status epilepticus: with status epilepticus Qualified Code(s): G40.901 - Epilepsy, unspecified, not intractable, with status epilepticus (4) Hypertension Current Visit: Yes Status: Acute Qualifiers: Hypertension type: primary hypertension Qualified Code(s): I10 - Essential (primary) hypertension - Plan -Admit patient for observation -Seizure precautions in place -Neurology consult -IV fluids -Keppra q12h. Ativan PRN seizures -Patient will need neurology and likely psychiatry outpatient follow up to titrate medications and ensure compliance given probable pseudoseizure -Monitor and replete electrolytes per protocol -Reconcile and continue home medications -Lovenox for VTE prophylaxis -Full code Discharge Plan: Home Plan to discharge in: 24 Hours - Advance Directives Does patient have a Living Will: No Does patient have a Durable POA for Healthcare: No - Code Status/Comfort Care Code Status Assessed: Yes (Full) Critical Care: No Time Spent Managing Pts Care (In Minutes): 50 <Wilda Pugh - Last Filed: 05/06/22 23:37> Physician Review: Patient Assessed, Agree with Above Assessment and Plan <Eligio Barr - Last Filed: 05/07/22 14:11>
[2022-05-07] MEDS ORDERED: ACETAMINOPHEN 500 MG TAB PO PRN (01:39)
[2022-05-07] MEDS ORDERED: ONDANSETRON 4 MG/2 ML VIAL IV PRN (01:39)
[2022-05-07] MEDS ORDERED: NA CHLORIDE 0.9% 1,000 ML IV SCH (01:39)
[2022-05-07] MEDS ORDERED: LORazepam 2 MG/ML VIAL IV PRN (01:39)
[2022-05-07] MEDS ORDERED: NA CHLORIDE 0.9% 1,000 ML ONE (02:20)
[2022-05-07 02:45] LABS: Absolute Lymphocytes (CBC) 2.3 K/uL (0.7-4.9); Hematocrit 33.5 % (36.0-45.0); Lymphocytes % 38.8 % (15.3-44.8); MCV 76.4 fL (80-100); MPV 8.3 fL (7.6-11.3); RBC Red Blood Cell Count 4.38 M/uL (3.86-4.86)
[2022-05-07 03:00] LABS: Urine Blood Negative (Negative); Urine Glucose Negative (Negative); Urine Protein Negative (Negative); Urine Specific Gravity >=1.030 (1.005-1.030); Urine pH 6.5 (5.0-7.0)
[2022-05-07] MEDS ORDERED: ACETAMINOPHEN 500 MG TAB ONE (03:01)
[2022-05-07 03:13] LABS: Magnesium 1.9 mg/dL (1.8-2.4); Phosphorus 3.3 mg/dL (2.5-4.9); Potassium 3.6 mmol/L (3.5-5.1); Thyroid Stimulating Hormone 1.22 uIU/mL (0.360-3.740)
[2022-05-07 03:26] LABS: Barbiturates NEGATIVE (NEGATIVE); Benzodiazepines NEGATIVE (NEGATIVE); Cocaine NEGATIVE (NEGATIVE); METHAMPHETAM NEGATIVE (NEGATIVE); Methadone NEGATIVE (NEGATIVE); Opiates NEGATIVE (NEGATIVE); Phencyclidine NEGATIVE (NEGATIVE); THC Cannibis POSITIVE (NEGATIVE); Urine Bacteria <20 /HPF (<20); Urine Mucus 4+ /HPF (None Seen); Urine RBC <5 /HPF (None Seen)
[2022-05-07] MEDS ORDERED: KETOROLAC 30 MG/ML INJ IV ONE (04:38)
[2022-05-07] MEDS ORDERED: KETOROLAC 30 MG/ML INJ ONE (05:12)
[2022-05-07] MEDS ORDERED: POTASSIUM CL SA 10 MEQ TAB PO ONE ×2 (05:41→06:07)
[2022-05-07 06:21] VITALS: BMI 38.4
[2022-05-07] MEDS ORDERED: levETIRAcetam 1,000 MG in NA CHLORIDE 0.9% 100 ML IV SCH ×4 (08:00)
[2022-05-07] MEDS ORDERED: MORPHINE 2 MG/ML SYR IV PRN (09:00)
[2022-05-07] MEDS ORDERED: ENOXAPARIN 40 MG/0.4 ML SQ SCH (09:00)
[2022-05-07] MEDS ORDERED: MORPHINE 2 MG/ML SYR ONE (09:37)
--- NOTE | 2022-05-07 09:41 | RAD REPORT ---
EXAM DESCRIPTION: CT - Head Brain W Cont - 05/07/2022 9:27 am CLINICAL HISTORY: Seizure COMPARISON: May 06, 2022 TECHNIQUE: Computed axial tomography of the head was obtained. 50 cc Isovue-300 administered intra[address] CT scans are performed using dose optimization technique as appropriate and may include automated exposure control or mA/KV adjustment according to patient size. FINDINGS: An intracranial bleed is not seen . The ventricles are normal in caliber. No extra-axial fluid collection is noted. No abnormal enhancement seen. No significant hypodensity within the brain noted Fluid within the sinuses/ mastoids is not seen. IMPRESSION: No acute intracranial abnormality is seen
[2022-05-07] MEDS ORDERED: ONDANSETRON 4 MG/2 ML VIAL ONE (10:19)
[2022-05-07 11:57] VITALS: TEMP 97.4
[2022-05-07] MEDS ORDERED: LORazepam 2 MG/ML VIAL ONE (12:02)
--- NOTE | 2022-05-07 13:53 | RAD REPORT ---
EXAM DESCRIPTION: Ribs Right - 05/07/2022 1:46 pm CLINICAL HISTORY: Right-sided rib pain following a fall COMPARISON: Chest Single View dated 04/24/2022. FINDINGS: No displaced rib fracture is evident. No non-displaced rib fracture suspected. No aggressive rib lesion. No underlying pneumothorax, effusion, infiltrate or pulmonary contusion. IMPRESSION: Negative right rib series.
[2022-05-07 14:01] VITALS: BP 126/76
--- NOTE | 2022-05-07 14:09 | EKG ---
Test Date: 2022-05-06 Test Time: 18:11:52 Federal Mediator: ANNEL MEASUREMENT RESULTS: Intervals: Rate: 100 ME: 154 QRSD: 76 QT: 356 QTc: 459 [place]: P: 82 ME: 154 QRS: 81 T: 29 INTERPRETIVE STATEMENTS: Normal sinus rhythm Normal ECG Compared to ECG 04/24/2022 21:57:01 No significant changes Electronically Signed On 05-07-22 14:08:15 CDT by Antolin Peñaloza
--- NOTE | 2022-05-07 14:17 | P.DS ---
Admission Date: 05/06/22 Discharge Date: 05/07/22 Disposition: ROUTINE DISCHARGE Discharge Condition: GOOD Reason for Admission: Seizure-Like Episode Consultations: 1. Neurology Hospital Course: DIAGNOSES: # Seizure-Like Episode in the setting of Epilepsy # Co-Existent Psychogenic Nonepileptic Seizures with Epilepsy # Reported History of Breast and Gastric Cancer s/p Radiation now on Chemotherapy # Substance Use Disorder - THC # Hypertension # Bipolar Disorder # Anxiety # Depression HOSPITAL COURSE: Ms. Cheyanne Lopes is a 26 year old female with a past medical history significant for epilepsy, reported breast and gastric cancer s/p radiation and chemotherapy, bipolar disorder, anxiety, depression, and hypertension who was admitted to the [facility] on 05/06/2022 for a seizure- like episode. She was admitted to the Medicine service. CT head/cervical spine revealed, " Motion degraded study shows no hemorrhage, mass effect or measurable cerebral edema. Motion degraded study shows no fracture, alignment abnormality or other acute finding." Due to the possibility of an intracranial metastases in the setting of reported cancer, I recommended an MRI brain; however, our MRI machine is currently down. Instead, we obtained a CT head with contrast, which revealed, "no acute intracranial abnormality is seen." An electroencephalogram was completed, and per discussion with bedside RN she intermittently had the seizure-like episodes throughout the procedure. I reviewed the EEG strips with Dr. Landaverde (Neurology), who stated that there was no epileptic waveforms noted at all. He stated that, although a true epileptic seizure could not be excluded prior to the EEG, any episode occurring during the EEG was likely a psychogenic non-epileptic seizure. I offered to keep her in the hospital until we can obtain an MRI, which would not be available until tomorrow at the earliest; however, she stated that she would like to be discharged today so that she can make her Neurology appointment tomorrow. This is reasonable given that she appears hemodynamically stable and she has multiple family members that live at home with her. I advised that she not drive or operate heavy machinery until cleared by her Neurologist at [facility] and she verbalized understanding. We were not able to complete a medication reconciliation as she does not know her home medications. However, she knows that she takes oxcarbazepine and lamotrigine. She reports compliance with these medications. Dr. Landaverde recommended that she be started on levetiracetam and follow-up with both Neurology and Psychiatry for further evaluation. I have also discussed the importance of an MRI and she stated that she will discuss this with her Neurologist tomorrow. On 05/07/2022, she was seen on rounds and deemed medically stable for discharge. She was discharged with instructions to schedule follow-up appointments with her PCP ([facility]) in 3-5 days, her Psychiatrist ([facility]) in 3-5 days, and with her Neurologist ([facility] [place]) tomorrow as scheduled. She was provided a prescription for levetiracetam. She, her mother, and her aunt were given the opportunity to ask questions and reported no further questions. Furthermore, all questions were answered to the best of my ability. Today, I personally spent 35 minutes on her case, of which greater than 50% of the time was spent in patient education, counseling, and coordination of care as described above. Vital Signs/Physical Exam: Temp Pulse Resp BP Pulse Ox 97.4 F 61 16 126/76 100 05/07/22 08:00 05/07/22 12:00 05/07/22 09:38 05/07/22 12:00 05/07/22 12:00 General: Alert, In no apparent distress, Oriented x3 HEENT: Atraumatic, PERRLA, Mucous membr. moist/pink, EOMI, Sclerae nonicteric Neck: Supple, JVD not distended Respiratory: Clear to auscultation bilaterally, Normal air movement Cardiovascular: No edema, Regular rate/rhythm, Normal S1 S2, No gallops, No rubs, No murmurs Gastrointestinal: Normal bowel sounds, Soft and benign, Non-distended, No tenderness, No rebound, No guarding Musculoskeletal: No clubbing Integumentary: No rashes Neurological: Normal gait, Normal speech, Normal strength at 5/5 x4 extr, Normal tone, Sensation intact, Cranial nerves 3-12 intact, Normal affect Laboratory Data at Discharge: WBC 6.00 K/uL (4.3-10.9) 05/07/22 02:26 Hgb 10.7 g/dL (12.0-15.0) L D 05/07/22 02:26 Hct 33.5 % (36.0-45.0) L 05/07/22 02:26 Plt Count 202 K/uL (152-406) 05/07/22 02:26 Sodium 144 mmol/L (136-145) 05/07/22 02:26 Potassium 3.6 mmol/L (3.5-5.1) D 05/07/22 02:26 BUN 7 mg/dL (7-18) 05/07/22 02:26 Creatinine 0.66 mg/dL (0.55-1.3) 05/07/22 02:26 Glucose 101 mg/dL (74-106) 05/07/22 02:26 Phosphorus 3.3 mg/dL (2.5-4.9) 05/07/22 02:26 Magnesium 1.9 mg/dL (1.8-2.4) 05/07/22 02:26 Triglycerides 47 mg/dL (<150) 05/07/22 02:26 Cholesterol 155 mg/dL (<200) 05/07/22 02:26 HDL Cholesterol 67 mg/dL (40-60) H 05/07/22 02:26 Cholesterol/HDL Ratio 2.31 05/07/22 02:26 Home Medications: RX: Ferrous Sulfate 1 tab PO DAILY 07/17/17 RX: Vitamin [ VITAMIN*] 1 tab PO DAILY 07/17/17 levETIRAcetam [Keppra] 500 mg PO BID #60 tab 05/07/22 New Medications: levETIRAcetam [Keppra] 500 mg PO BID #60 tab Physician Discharge Instructions: 1. Please schedule a follow-up appointment with your PCP at [facility] in 3-5 days 2. Please keep your Neurology appointment for tomorrow at [facility] [place] 3. Please schedule a follow-up appointment with your Psychiatrist at [facility] in 3-[address] or operate heavy machinery until cleared by your Neurologist Diet: Regular Activity: Ad chivo Followup: Unknown,U [Primary Care Provider] - Time spent managing pt's care (in minutes): 35
--- NOTE | 2022-05-08 10:11 | EEG ---
CHART: [id number] TEST ID#: [id number] DATE OF STUDY: 05/07/2022 THE EEG WAS RECORDED PORTABLE IN THE PATIENT'S ROOM ON A 17 CHANNEL MACHINE. ELECTRODES WERE APPLIED IN THE USUAL MANNER USING THE INTERNATIONAL 10-20 SYSTEM. THE WAKING BACKGROUND RHYTHM IN THIS RECORD CONSISTS OF VERY WELL DEVELOPED AND WELL ORGANIZED WAVES OF 10 HZ., MAXIMAL IN THE POSTERIOR HEAD REGIONS WHICH ATTENUATE NORMALLY WITH EYE OPENING. LOW-VOLTAGE 18-22 HZ IS EXPRESSED IN THE FRONTAL REGIONS. SHE HAS SEVERAL "CLINICAL" EVENTS ONLY EXPRESSING MUSCLE ARTIFACT. NO EPILEPTIFORM ACTIVITY OCCURRED DURING THESE EVENTS. THERE ARE NO FOCAL OR LATERALIZING FEATURES. NO EPILEPTIFORM ACTIVITY APPEARS. SLEEP DID NOT OCCUR. HYPERVENTILATION WAS NOT PERFORMED. PHOTIC STIMULATION PRODUCED NO DRIVING BILATERALLY. IMPRESSION: THE PATIENT HAD SEVERAL EPISODES OF GENERALIZED SHAKING WITH "FLAPPING". SHE REMAINED CONSCIOUS DURING THE EPISODES. NO EPILEPTIFORM ACTIVITY OCCURRED DURING THESE EVENTS. THEREFORE, THE EVENTS WERE NON-EPILEPTIC.
[2022-05-10 01:04] VITALS: O2SAT 98
== END 2022-05-07 15:45 | disposition home or self-care (01) ==
LOC: ER 18:05 → ERHOLD 20:33
PROVIDERS: ADMIT Hospitalist; ATTEND Internal Medicine
DX: F44.5 Conversion disorder with seizures or convulsions (principal); G40.909 Epilepsy, unspecified, not intractable, without status epilepticus; F31.9 Bipolar disorder, unspecified; I10 Essential (primary) hypertension; E87.6 Hypokalemia; C78.89 Secondary malignant neoplasm of other digestive organs; F12.90 Cannabis use, unspecified, uncomplicated; F41.8 Other specified anxiety disorders; Z85.3 Personal history of malignant neoplasm of breast; Z20.822 Contact with and (suspected) exposure to COVID-19
CPT/HCPCS: 95816; 93005; 85025 ×2; 80048 ×2; 36415; 83735; 84100; 80061; 84443; 84439; 80307; 70460; 70450; 72125; 71100; 96375; 96374; 99284; 87811; Q9967; J2270; J1953 ×3; J7030 ×2; J2405; G0378 ×3; 81003; 81015

== ENCOUNTER 2022-05-14 14:38 | Emergency (ER) | payer OTHER ==
--- OUTSIDE RECORDS SUMMARY | 2022-05-14 14:51 | XMS REPORT | Continuity of Care Document ---
:1995 Author Organization [facility] t Address [address] [place] [address] Care Team Providers Name Role Phone SYSTEM, PROVIDER NOT IN Primary Care Physician Unavailable BEATRIZ MARTINEZ Attending Clinician Unavailable VINCE GARCIA Attending Clinician Unavailable VINCE GARCIA Attending Clinician Unavailable Vince Garcia MD Attending Clinician Doctor Unassigned, [place] Attending Clinician Unavailable ANTOLIN MARCUM Attending Clinician Unavailable Antolin Marcum MD Attending Clinician CAPO LOBO Attending Clinician Unavailable Capo Lobo DO Attending Clinician PETRONA PAN Attending Clinician Unavailable Petrona Pan DO Attending Clinician Beatriz Martinez Attending Clinician BEATRIZ MARTINEZ Attending Clinician Unavailable MAY MULLINS Attending Clinician Unavailable May Mullins MD Attending Clinician SINDHU MEDEIROS Attending Clinician Unavailable Katerina RAVI, Raymundo Bowling Attending Clinician [phone] Deep RAVI, Tiffanie García Attending Clinician Sindhu Medeiros MD Attending Clinician Hussain SCOTTMarli Attending Clinician KIMBERLY MI Attending Clinician Unavailable RADHA RUFFIN Attending Clinician Unavailable SYEDA HIDALGO Attending Clinician Unavailable ERLINDA MARCUM Attending Clinician Unavailable NOLA BUNCH Attending Clinician Unavailable MD YONATAN BARKER Attending Clinician Unavailable TANYA BARTON Attending Clinician Unavailable ANA BOO Attending Clinician Unavailable Ana Boo NP Attending Clinician AkinsiLauren Godfrey Attending Clinician [phone] BEATRIZ MARTINEZ Admitting Clinician Unavailable CAPO LOBO Admitting Clinician Unavailable Beatriz Martinez Admitting Clinician BEATRIZ MARTINEZ Admitting Clinician Unavailable SINDHU MEDEIROS Admitting Clinician Unavailable TIFFANIE MORGAN Admitting Clinician Unavailable NOLA BUNCH Admitting Clinician Unavailable MD YONATAN BARKER Admitting Clinician Unavailable Payers Payer Name Policy Type Policy Number Effective Date Expiration Date Memo [employer] [id number] 2020 00:00:00 [facility] [id number] 2022 CHOICE [place] STAR 00:00:00 CHRISTA BOWLES FROM [id number] 2020 [facility] 00:00:00 Problems Condition Condition Condition Status Onset Resolution Last Treating Co mments Source Name Details Category Date Date Treatment Clinician Date PELVIC AND PELVIC Diagnosis Active 2021-12-31 Memoria PERINEAL AND 12-04 15:31:00 l PAIN-R10.2 PERINEAL 00:00: Herm roni / OVARIAN PAIN-R10.2 00 / OVARIAN Active 12/04/2021 [facility] [place] Anemia Anemia Disease Active [facility] Constipati Constipati Disease Active [facility] Vaginal Vaginal Disease Active [facility] cellulitis cellulitis 00:00: Me dical 00 [...] Disease Active 2019-08 M ethodi c c 2- st cholelithi cholelithi 00:00: Ho spita asis asis 00 l Family Family Disease Active Overview: Univer s history of history of 7-24 Formattin ity of breast breast 00:00: g of this [place] cancer cancer 00 note Medical might be Branch different from the original. Reports grandmoth er dx at age 44 Well woman Well woman Disease Active U nivers exam exam 6-05 ity of 00:00: [place] [facility] Breast Breast Disease Active Univers pain pain 6-05 ity of 00:00: [place] [address] Medical Branch [place] Disease Active 2018- Univers luteum luteum 6-05 ity of cyst or cyst or 00:00: [place] hematoma hematoma 00 Medica l Branch Need for Need for Disease Active Unive rs HPV HPV 6-05 ity of [place] BMI BMI Disease Active 2019- Univers 26.0-26.9, 26.0-26.9, 6-05 it y of adult adult 00:00: [place] [facility] BMI BMI Disease Active 2019- Univers 26.0-26.9, 26.0-26.9, 6-05 it y of adult adult 00:00: [place] [facility] Well woman Well woman Disease Active 2019- U nivers exam exam 6-05 ity of 00:00: [place] [facility] Pelvic and Pelvic Problem 2021-12-08 Memoria perineal and 22:13:17 l pain perineal [place] pain 12/08/2021 [place] Mixed Mixed Problem Resolve 2021-12-08 Devin latrice anxiety anxiety d 22:13:17 l and and [place] depressive depressive disorder disorder (disorder) (disorder) Resolved Problem 12/08/2021 [place] Seizure Seizure Problem Resolve 2021-12-08 M emoria (finding) (finding) d 22:13:17 l Resolved [place] Problem 12/08/2021 [place] PELVIC AND PELVIC Diagnosis Active 2021-12-31 Memoria PERINEAL AND 15:31:00 l PAIN PERINEAL [place] PAIN Active [place] Allergies, Adverse Reactions, Alerts Allergy Allergy Status Severity Reaction(s) Onset Inactive Treating Comm ents Source Name Type Date Date Clinician NO KNOWN Allergy Active SLE ALLERGIE S NO KNOWN Drug Active Univers ALLERGIE Class ity of S [place] [facility] [place] Social History Social Habit Start Date Stop Date Quantity Comments Source History [facility] Alcohol Comment Medical C enter Exposure to 2022-04-28 2022-05-08 Not sure University SARS-CoV-2 00:00:00 14:32:00 [facility] (event) Branch Social History 2021-12-04 2021-12-04 [facility] 20:06:54 20:06:54 Alcohol intake 2020-10-22 2020-10-22 Current drinker [facility] 00:00:00 00:00:00 of alcohol (finding) Tobacco use and 2020-08-22 2020-08-[address] [facility] exposure 00:00:00 00:00:00 Medical Center History SDFL 2020-08-16 2020-08-16 [facility] Alcohol Frequency 00:00:00 00:00:00 History SDFL 2020-08-16 2020-08-16 [facility] Alcohol Std 00:00:00 00:00:00 Drinks History SDFL 2020-08-16 2020-08-16 1 [facility] Alcohol Binge 00:00:00 00:00:00 Sex Assigned At [address] [facility] 00:00[facility]00 00[facility]00 [facility] Center Smoking Status Start Date Stop Date Source Never smoker [facility] Medications Ordered Filled Start Stop Current Ordering Indication Dosage Frequency Signature Comments Components Source Medication Medication Date Date Medication? Clinician (SIG) Name Name oxcarbazepi 2021- No Take by Miguel pratt 05-09 mouth. ity of (TRILEPTAL 11:24: 00:00 [place] ORAL) 37 :00 Medical Branch oxcarbazepi 2021- No Take by Miguel pratt 05-09 mouth. ity of (TRILEPTAL 11:24: 00:00 [place] ORAL) 37 :00 [facility] Branch levETIRAcet Yes [id number] 250mg Take 1 Univers am (KEPPRA) 05-09 tablet by ity of 250 mg 00:00: mouth in [place] tablet the Medical morning Branch and 1 tablet in the evening. Take at same time that the 500mg tablets are taken. levETIRAcet Yes [id number] 250mg Take 1 Univers am (KEPPRA) 05-09 tablet by ity of 250 mg 00:00: mouth in [place] tablet 00 the [facility] morning [place] and 1 tablet in the evening. Take at same time that the 500mg tablets are taken. levETIRAcet Yes [id number] 250mg Take 1 Univers am (KEPPRA) 05-09 tablet by ity of 250 mg 00:00: mouth in [place] tablet 00 the [facility] morning [place] and 1 tablet in the evening. Take at same time that the 500mg tablets are taken. levETIRAcet Yes [id number] 250mg Take 1 Univers am (KEPPRA) 05-09 tablet by ity of 250 mg 00:00: mouth in [place] tablet 00 the [facility] morning [place] and 1 tablet in the evening. Take at same time that the 500mg tablets are taken. levETIRAcet Yes [id number] 250mg Take 1 Univers am (KEPPRA) 05-09 tablet by ity of 250 mg 00:00: mouth in [place] tablet 00 the [facility] morning [place] and 1 tablet in the evening. Take at same time that the 500mg tablets are taken. ascorbic Yes QD Take by [facility] [...] [facility] (TRILEPTAL 19:31: Medical ORAL) 22 Center LORazepam 1 Yes TAKE 1 Univ ers mg tablet 9-14 TABLET BY ity o f 00:00: MOUTH AT [place] [address] BEDTIME Medical NEEDED FOR Branch SLEEP LORazepam 1 Yes TAKE 1 Univ ers mg tablet 9-14 TABLET BY ity o f 00:00: MOUTH AT [place] [address] BEDTIME Medical NEEDED FOR Branch SLEEP LORazepam 1 Yes TAKE 1 Univ ers mg tablet 9-14 TABLET BY ity o f 00:00: MOUTH AT [place] 00 BEDTIME Medical NEEDED FOR Branch SLEEP LORazepam 1 Yes TAKE 1 Univ ers mg tablet 9-14 TABLET BY ity o f 00:00: MOUTH AT [place] 00 BEDTIME Medical NEEDED FOR Branch SLEEP LORazepam 1 Yes TAKE 1 Univ ers mg tablet 9-14 TABLET BY ity o f 00:00: MOUTH AT [place] 00 BEDTIME Medical NEEDED FOR Branch SLEEP TAKE 1 No TABLET BY 8-29 MOUTH EVERY 00:00: 6 HOURS 00 NEEDED WITH FOOD FOR PAIN FOR FEVER FOR 10 DAYS TAKE 1 0 No TABLET BY 8-29 MOUTH AT 00:00: BEDTIME 00 TAKE 1 0 No TABLET BY 8-29 MOUTH EVERY 00:00: 6 HOURS 00 NEEDED WITH FOOD FOR PAIN FOR FEVER FOR 10 DAYS TAKE 1 2021-0 No TABLET BY 8-29 MOUTH AT 00:00: BEDTIME 00 NaCl 0.9% 2021- No 1000mL at 999 Uni vers (NS) bolus 02-27 07-19 mL/hr, ity of infusion 18:30: 20:00 1,000 mL, Biju as 1,000 mL 00 :00 IV Medical Infusion, Branch ONCE, 1 dose, On 02/27/22 at 1330, STAT Trileptal 2021-0 No 15mg 150 mg 6-30 tablet 00:00: 00 hydroxyzine 2-0 No 1mg HCl 50 mg 6-30 tablet 00:00: 00 risperidone 2-0 No 1mg 2 mg tablet 30 00:00: 00 Trileptal 2-0 No 15mg 150 mg 6-30 tablet 00:00: 00 hydroxyzine 2-0 No 1mg HCl 50 mg 6-30 tablet 00:00: 00 risperidone 2-0 No 1mg 2 mg tablet 30 00:00: 00 hydrOXYzine 2-0 Yes 50mg Take 50 mg Univers 50 mg 6-30 by mouth ity of tablet 00:00: at [place] [address] bedtime. [facility] Branch hydrOXYzine 2021-0 Yes 50mg Take 50 mg Univers 50 mg 6-30 by mouth ity of tablet 00:00: at [place] [address] bedtime. [facility] Branch hydrOXYzine 2021-0 Yes 50mg Take 50 mg Univers 50 mg 6-30 by mouth ity of tablet 00:00: at [place] [address] bedtime. [facility] Branch hydrOXYzine 2021-0 Yes 50mg Take 50 mg Univers 50 mg 6-30 by mouth ity of tablet 00:00: at [place] [address] bedtime. [facility] Branch hydrOXYzine 2021-0 Yes 50mg Take 50 mg Univers 50 mg 6-30 by mouth ity of tablet 00:00: at [place] [address] bedtime. [facility] Branch ketorolac 2021- No 30mg 30 mg, Unive rs (TORADOL) 01-25 06-16 Slow IV ity of injection 16:00: 15:19 Push, [place] 30 mg 00 :00 ONCE, 1 Medical dose, On Branch [facility] 01/25/22 at 1100, LINDA NaCl 0.9% 2021- No 1000mL at 999 Uni vers (NS) bolus 01-25 06-16 mL/hr, ity of infusion 15:30: 15:45 1,000 mL, Biju as 1,000 mL 00 :00 IV Medical Infusion, Branch ONCE, 1 dose, On Yue 01/25/22 at 1030, LINDA oxcarbazepi 2-0 Yes Take by Uni vers ne 6-16 mouth. ity of (TRILEPTAL 12:01: [place] ORAL) [address] [place] [address] Branch risperidone 2022-0 Yes Take by Uni vers (RISPERDAL 6-16 mouth. ity of ORAL) 12:01: [address] Branch oxcarbazepi 2022-0 Yes Take by Uni vers ne 6-16 mouth. ity of (TRILEPTAL 12:01: [place] ORAL) [address] [place] [address] Branch risperidone 2-0 Yes Take by Uni vers (RISPERDAL 6-16 mouth. ity of ORAL) 12:01: [address] Branch oxcarbazepi 2-0 Yes Take by Uni vers ne 6-16 mouth. ity of (TRILEPTAL 12:01: [place] ORAL) [address] [place] [address] risperidone 2-0 Yes Take by Uni vers (RISPERDAL 6-16 mouth. ity of ORAL) 12:01: [address] Branch oxcarbazepi 2-0 Yes Take by Uni vers ne 6-16 mouth. ity of (TRILEPTAL 12:01: [place] ORAL) [address] [place] [address] Branch risperidone 2-0 Yes Take by Uni vers (RISPERDAL 6-16 mouth. ity of ORAL) 12:01: [address] risperidone 2022-0 Yes Take by Uni vers (RISPERDAL 6-16 mouth. ity of ORAL) 12:01: [address] risperidone 2022-0 Yes Take by Uni vers (RISPERDAL 6-16 mouth. ity of ORAL) 12:01: [address] risperidone 2022-0 Yes Take by Uni vers (RISPERDAL 6-16 mouth. ity of ORAL) 12:01: [address] risperidone 2022-0 Yes Take by Uni vers (RISPERDAL 6-16 mouth. ity of ORAL) 12:01: [address] risperidone 2022-0 Yes Take by Uni vers (RISPERDAL 6-16 mouth. ity of ORAL) 12:01: [address] ibuprofen 2022-0 Yes 600 mg = 1 Me moria 600 mg oral 4-27 tab, PO, l tablet 11:28: Q6H, PRN [place] 00 Pain or Fever, Take with food, X 10 day, # 40 tab, 1 Refill(s), Pharmacy: [facility], 165.1, cm, 12/05/21 21:26:00 CDT, Height, 81.3, kg, 12/05/21 21:26:00 CDT, Weight ibuprofen 2-0 Yes 600 mg = 1 Me moria 600 mg oral 4-27 tab, PO, l tablet 11:28: Q6H, PRN [place] 00 Pain or Fever, Take with food, X 10 day, # 40 tab, 1 Refill(s), Pharmacy: [facility], 165.1, cm, 12/05/21 21:26:00 CDT, Height, 81.3, kg, 12/05/21 21:26:00 CDT, Weight [place] 5/325 2-0 Yes 1 tab, PO, Memoria oral tablet 4-27 Q4H, PRN l 11:27: Pain Score [place] 00 1-3, X 7 day, # 30 tab, 0 Refill(s), Pharmacy: [facility], 165.1, cm, 12/05/21 21:26:00 CDT, Height, 81.3, kg, 12/05/21 21:26:00 CDT, Weight [place] 5/325 2-0 Yes 1 tab, PO, Memoria oral tablet 4-27 Q4H, PRN l 11:27: Pain Score [place] 00 1-3, X 7 day, # 30 tab, 0 Refill(s), Pharmacy: [facility], 165.1, cm, 12/05/21 21:26:00 CDT, Height, 81.3, kg, 12/05/21 21:26:00 CDT, Weight Trileptal 2-0 No 15mg 150 mg 4-27 tablet 00:00: 00 hydroxyzine 2-0 No 1mg HCl 50 mg 4-27 tablet 00:00: 00 risperidone 2-0 No 1mg 2 mg tablet 4-27 00:00: 00 Trileptal 2022-0 No 15mg 150 mg 4-27 tablet 00:00: 00 hydroxyzine 2-0 No 1mg HCl 50 mg 4-27 tablet 00:00: 00 risperidone 2021-0 No 1mg 2 mg tablet 12-06 00:00: 00 Zofran 0 No Notes: Memoria 12-05 (Same as: l 22:53: Zofran) MEDICATION WASTE Product Size: 4 mg Product Wasted: ___ mg Zofran No Notes: Memoria 12-05 (Same as: l 22:53: Zofran) MEDICATION WASTE Product Size: 4 mg Product Wasted: ___ mg estradiol 0 No 0.1 mg, Memor ia 0.1 mg/12-05 Route: l hours 20:00: TOP, Drug Form: transdermal ERFILM, film, Dosing extended Weight release 81.364, kg, Q7D, Start date: 12/05/21 15:00:00 CDT, Duration: 30 day, Stop date: 01/02/22 9:00:00 CDT estradiol 2021-0 No 0.1 mg, Memor ia 0.1 mg/24 [...] INJ, ONCE Stop date: 12/05/21 14:56:00 CDT neostigmine No Route: IV, Memoria (ANES) 12-05 Drug form: l 19:56: INJ, ONCE Stop date: 12/05/21 14:56:00 CDT ondansetron No [...] ONCE, Stop date: 12/05/21 14:17:00 CDT midazolam No Route: IV, Me moria [...] Size: 30 mg Product Wasted: ___ mg [place] 5/325 No Notes: Devin latrice oral tablet 12-05 (Same as: l 18:29: [place] 325/5) Do not exceed 4gm/day of acetaminop hen. ketOROLAC No 4 days Memor ia 30 mg/mL 12-05 l injectable 18:29: MEDICATION H ermann solution WASTE Product Size: 30 mg Product Wasted: ___ mg [place] 5/325 No Notes: Devin latrice oral tablet - (Same as: l 18:29: [place] To[place] 00 325/5) Do not exceed 4gm/day [...] en 4-26 acetaminop l 15:17: hen 4000 [place] 00 mg/day (4 gm/day). (Same as: Tylenol [...] as l 11:00: Ancef [place] 00 Lactated 2021-0 No 1,000 mL, Devin latrice [place] 4-26 Rate: 125 l Injection 11:00: ml/hr, [place] n IV 1,000 mL 00 Infuse over: 8 hr, Route: IV, Dosing Weight 80.909 kg, Total Volume: 1,000, Start date: 12/05/21 6:00:00 CDT, Duration: 30 day, Stop date: 01/04/22 5:59:00 CDT, BSA: 1.96 m2, 0 Ancef 2021-0 No Notes: Memoria 4-26 Same as l 11:00: Ancef [place] 00 Lactated 2021-0 No 1,000 mL, Devin latrice [place] 4-26 Rate: 125 l Injection 11:00: ml/hr, [place] n IV 1,000 mL 00 Infuse over: 8 hr, Route: IV, Dosing Weight 80.909 kg, Total Volume: 1,000, Start date: 12/05/21 6:00:00 CDT, Duration: 30 day, Stop date: 01/04/22 5:59:00 CDT, BSA: 1.96 m2, 0 hydrOXYzine 2021-0 Yes 25 mg = 1 M emoria pamoate 25 4-25 cap, PO, l mg oral 19:58: Bedtime, 0 Herm roni capsule 00 Refill(s) hydrOXYzine 2021-0 Yes 25 mg = 1 M emoria pamoate 25 4-25 cap, PO, l mg oral 19:58: Bedtime, 0 Herm roni capsule 00 Refill(s) carvedilol 2021-0 Yes 6.25 mg = Me moria 6.25 mg 4-25 1 tab, PO, l oral tablet 19:57: BID, 0 Herm roni 00 Refill(s) carvedilol 2021-0 Yes 6.25 mg = Me moria 6.25 mg 4-25 1 tab, PO, l oral tablet 19:57: BID, 0 Herm roni 00 Refill(s) Trileptal 2021-0 Yes 150 mg, Memor ia 4-25 PO, l 19:56: Bedtime, # [place] 00 30 tab, 0 Refill(s) Trileptal 2021-0 Yes 150 mg, Memor ia 4-25 PO, l 19:56: Bedtime, # [place] 00 30 tab, 0 Refill(s) Risperdal 2021-0 Yes 2 mg = 2 Devin latrice M-Tab 1 mg 4-25 tab, PO, l oral 19:53: Bedtime, # [place] tablet, 00 60 tab, 0 disintegrat Refill(s) ing Risperdal 2021-0 Yes 2 mg = 2 Devin latrice M-Tab 1 mg 4-25 tab, PO, l oral 19:53: Bedtime, # [place] tablet, 00 60 tab, 0 disintegrat Refill(s) ing Dose 2021-0 No Unknown 4-20 00:00: 00 Dose 2021-0 No Unknown 4-20 00:00: 00 Dose 2021-0 No Unknown 4-20 00:00: 00 Dose 2021-0 No Unknown 4-20 00:00: 00 Dose 2021-0 No Unknown 4-20 00:00: 00 Dose 2021-0 No Unknown 4-20 00:00: 00 Dose 2021-0 No Unknown 4-20 00:00: 00 Dose 2021-0 No Unknown 4-20 00:00: 00 Dose 2021-0 No Unknown 4-20 00:00: 00 Dose 2021-0 No Unknown 4-20 00:00: 00 Dose 2021-0 No Unknown 4-20 00:00: 00 Dose 2021-0 No Unknown 4-20 00:00: 00 Dose 2021-0 No Unknown 4-20 00:00: 00 Dose 2-0 No Unknown 4-20 00:00: 00 Dose 2021-0 No Unknown 4-20 00:00: 00 Dose 2021-0 No Unknown 4-20 00:00: 00 Dose 2021-0 No Unknown 4-20 00:00: 00 Dose 2021-0 No Unknown 4-20 00:00: 00 Dose 2021-0 No Unknown 4-20 00:00: 00 Dose 2021-0 No Unknown 4-20 00:00: 00 Dose 2021-0 No Unknown 4-20 00:00: 00 Dose 2021-0 No Unknown 4-20 00:00: 00 Dose 2021-0 No Unknown 4-20 00:00: 00 Dose 2021-0 No Unknown 4-20 00:00: 00 Dose 2021-0 No Unknown 4-20 00:00: 00 Dose 2021-0 No Unknown 4-20 00:00: 00 Dose 2021-0 No Unknown 4-20 00:00: 00 Dose 2021-0 No Unknown 4-20 00:00: 00 Dose 2021-0 No Unknown 4-20 00:00: 00 Dose 2021-0 No Unknown 4-20 00:00: 00 oxcarbazepi 0 Yes [facility] (TRILEPTAL 02:50: Medical ORAL) Center oxcarbazepi Yes Take [facility] (TRILEPTAL 02:50: Medical ORAL) [place] multivitami Yes 1{capsu QD Take [address] n capsule 3- le} capsule by Luke s 21:57: mouth [...] s 21:57: mouth Medical 40 daily. Center Dose No Unknown 2-28 00:00: 00 Dose 2021-0 No Unknown 2-28 00:00: 00 Dose 2021-0 No Unknown 2-28 00:00: 00 Dose 2021-0 No Unknown 2-28 00:00: 00 Dose 2021-0 No Unknown 2-28 00:00: 00 Dose 2021-0 No Unknown 2-28 00:00: 00 Dose 2021-0 No Unknown 2- 00:00: 00 Dose 2021-0 No Unknown 2-21 00:00: 00 carvedilol 2021-0 No 1mg 6.25 mg 2-16 tablet 00:00: 00 methylpredn 0 No 1mg isolone 4 2-16 mg tablets 00:00: in a dose 00 pack carvedilol 2022-0 No 1mg 6.25 mg 2-16 tablet 00:00: 00 methylpredn 2-0 No 1mg isolone 4 2-16 mg tablets 00:00: in a dose 00 pack Trileptal 2-0 No 1mg 150 mg 2-03 tablet 00:00: 00 Dose 2022-0 No Unknown 2-03 00:00: 00 Dose 2022-0 No Unknown 2-03 00:00: 00 Trileptal 2-0 No 1mg 150 mg 2-03 tablet 00:00: 00 Dose 2022-0 No Unknown 2-03 00:00: 00 Dose 2022-0 No Unknown 2-03 00:00: 00 risperidone 2-0 No 1mg 2 mg tablet 1-11 00:00: 00 hydroxyzine 2-0 No 1mg HCl 50 mg 1-11 tablet 00:00: 00 risperidone 2-0 No 1mg 2 mg tablet 1-11 00:00: 00 hydroxyzine 2-0 No 1mg HCl 50 mg 1-11 tablet 00:00: 00 risperidone 1-1 No 1mg 1 mg tablet 2-13 00:00: 00 hydroxyzine 1-1 No 1mg HCl 25 mg 2-13 tablet 00:00: 00 risperidone 1-1 No 1mg 1 mg tablet 2-13 00:00: 00 hydroxyzine 2020-1 No 1mg HCl 25 mg 2-13 tablet 00:00: 00 keTOROlac 2019- Yes 10mg Q6H Take 10 mg Me thodi (TORadol) 2-[address] 10 mg 13:57: every 6 Hospita tablet 23 (six) l hours as needed for moderate pain. keTOROlac 2019-08 Yes 10mg Q6H Take 10 mg Me thodi (TORadol) 2-[address] 10 mg 13:57: every 6 Hospita tablet 23 (six) l hours as needed for moderate pain. keTOROlac 2019- Yes 10mg Q6H Take 10 mg Me thodi (TORadol) 2-[address] 10 mg 13:57: every 6 Hospita tablet 23 (six) l hours as needed for moderate pain. keTOROlac 2019-08 Yes 10mg Q6H Take 10 mg Me thodi (TORadol) 2-[address] 10 mg 13:57: every 6 Hospita tablet 23 (six) l hours as needed for moderate pain. ondansetron 2020- Yes 8mg Q6H Take 2 Meth violet ODT 2-12 tablets (8 st (ZOFRAN-ODT 00:00: mg total) H ospita ) 4 MG 00 by mouth l disintegrat every 6 ing tablet (six) hours as needed for nausea or vomiting. ondansetron 2020- Yes 8mg Q6H Take 2 Meth violet ODT 2-12 tablets (8 st (ZOFRAN-ODT 00:00: mg total) H ospita ) 4 MG 00 by mouth l disintegrat every 6 ing tablet (six) hours as needed for nausea or vomiting. ondansetron 2020-1 Yes 8mg Q6H Take 2 Meth violet ODT 2-12 tablets (8 st (ZOFRAN-ODT 00:00: mg total) H ospita ) 4 MG 00 by mouth l disintegrat every 6 ing tablet (six) hours as needed for nausea or vomiting. ondansetron 2020- Yes 8mg Q6H Take 2 Meth violet ODT 2-12 tablets (8 st (ZOFRAN-ODT 00:00: mg total) H ospita ) 4 MG 00 by mouth l disintegrat every 6 ing tablet (six) hours as needed for nausea or vomiting. orphenadrin 2019-08 No 1mg e citrate 0-12 ER 100 mg 00:00: tablet,exte 00 nded release ibuprofen 2019-08 No 1mg 800 mg 0-12 tablet 00:00: 00 orphenadrin 2019-08 No 1mg e citrate 0-12 ER 100 mg 00:00: tablet,exte 00 nded release ibuprofen 2019-08 No 1mg 800 mg 0-12 tablet 00:00: 00 ibuprofen 2019- No 1mg 800 mg 0-12 tablet 00:00: 00 ibuprofen 2019-08 No 1mg 800 mg 0-12 tablet 00:00: 00 morpHINE 2019-08- No 4mg 4 mg, Slow Un annette injection 4 0-11 10-11 IV Push, ity of mg 17:45: 16:36 ONCE, 1 [place] 00 :00 dose, [facility] 05/22/20 Branch at 1245, STAT ketorolac 2019-08- No 30mg 30 mg, Unive rs (TORADOL) 0-11 10-11 Slow IV ity of injection 16:30: 15:39 Push, [place] 30 mg 00 :00 ONCE, 1 Medical dose, [place] Branch 05/22/20 at 1130, Routine
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 cephALEXin Yes 500mg Take 500 Un annette (KEFLEX) 6-05 mg by ity of 500 mg 13:59: mouth 4 [place] capsule 29 (four) Medical times Branch daily. norgestimat 2019 Yes [id number] 1{tbl} Take 1 Univers e-ethinyl 6-05 tablet by ity o f estradiol 00:00: mouth [place] (ORTHO 00 daily. Medical TRI-CYCLEN Branch LO, 28,) 0.18/0.215/ 0.25 mg-25 mcg tablet norgestimat Yes [id number] 1{tbl} Take 1 Univers e-ethinyl 6-05 tablet by ity o f estradiol 00:00: mouth [place] (ORTHO 00 daily. [facility] 0.18/0.215/ 0.25 mg-25 mcg tablet norgestimat 2020- No [id number] 1{tbl} Take 1 Univers e-ethinyl 6-05 10-11 tablet by ity of estradiol 00:00: 00:00 mouth [place] (ORTHO 00 :00 daily. [facility] 0.18/0.215/ 0.25 mg-25 mcg tablet ibuprofen 2018- Yes TAKE 1 Univer s 800 mg 6-03 TABLET BY ity of tablet 00:00: MOUTH [place] 00 EVERY 12 Medical HOURS Branch NEEDED FOR PAIN CONTROL ibuprofen 2018- Yes TAKE 1 Univer s 800 mg 6-03 TABLET BY ity of tablet 00:00: MOUTH [place] 00 EVERY 12 Medical HOURS Branch NEEDED FOR PAIN CONTROL ibuprofen 2019-0 2020- No TAKE 1 Unive rs 800 mg 6-03 10-11 TABLET BY ity of tablet 00:00: 00:00 MOUTH [place] 00 :00 EVERY 12 Medical HOURS Branch NEEDED FOR PAIN CONTROL cyclobenzap 2019-0 No 1mg rine 5 mg 1-09 tablet 00:00: 00 prednisone 2019-0 No mg 20 mg 1-09 tablet 00:00: 00 indomethaci 2019-0 No 1mg n 50 mg 1-09 capsule 00:00: 00 cyclobenzap 2019-0 No 1mg rine 5 mg 1-09 tablet 00:00: 00 prednisone 2019-0 No mg 20 mg 1-09 tablet 00:00: 00 indomethaci 2019-0 No 1mg n 50 mg 1-09 capsule 00:00: 00 fluticasone 2018-1 No 2mcg/ac propionate 2-11 tuation 50 00:00: mcg/actuati 00 on nasal spray,suspe nsion loratadine 2018-1 No 1mg 10 mg 2-11 tablet 00:00: 00 sumatriptan 2018-1 No 1mg 50 mg 2-11 tablet 00:00: 00 fluticasone 2018-1 No 2mcg/ac propionate 2-11 tuation 50 00:00: mcg/actuati 00 on nasal spray,suspe nsion loratadine 2018-1 No 1mg 10 mg 2-11 tablet 00:00: 00 sumatriptan 2018-1 No 1mg 50 mg 2-11 tablet 00:00: 00 Seroquel 50 2018-0 No 1mg mg tablet 4-11 00:00: 00 Seroquel 50 2018-0 No 1mg mg tablet 4-11 00:00: 00 No known No Univers medications [facility] No known No Univers medications [facility] Immunizations Ordered Filled Immunization Date Status Comments [facility] Immunization Name Name Influenza Four-QIV 2021-09-[address] [facility] PF 6+MO IM ([id number]) 00:00:00 [facility] Influenza Four-QIV 2021-09-[address] [facility] PF 6+MO IM ([id number]) 00:00:00 [facility] Influenza Four-QIV 2021-09-[address] [facility] PF 6+MO IM ([id number]) 00:00:00 [facility] [id number] 2021-08-31 Completed [facility] RNA-1273vaxMODERNA 00:00:00 [id number] 2021-08-31 Completed [facility] RNA-1273vaxMODERNA 00:00:00 Moderna COVID-19 2020-11-28 Completed Vaccine 00:00:00 Moderna COVID-19 2020-11-28 Completed Vaccine 00:00:00 [id number] 2020-11-18 Completed [facility] [place] RNA-1273vaxMODERNA 00:00:00 [id number]-19m 2020-11-18 Completed [facility] [place] RNA-1273vaxMODERNA 00:00:00 Influenza, 2020-05-23 Completed seasonal, inj 00:00:00 Influenza, 2020-05-23 Completed seasonal, inj 00:00:00 HPV9 2019-03-04 Completed [facility] 00:00:00 [facility] HPV9 2019-03-04 Completed [facility] of 00:00:00 [facility] HPV9 2019-03-04 Completed [facility] of 00:00:00 [facility] HPV9 2019-03-04 Completed [facility] of 00:00:00 [facility] HPV9 2019-03-04 Completed University of 00:00:00 [facility] HPV9 2019-03-04 Completed University of 00:00:00 [facility] HPV9 2019-03-04 Completed [facility] of 00:00:00 [facility] HPV9 2019-03-04 Completed University of 00:00:00 [facility] HPV9 2019-03-04 Completed University of 00:00:00 [facility] HPV9 2019-03-04 Completed [facility] of 00:00:00 [facility] HPV9 2019-03-04 Completed [facility] of 00:00:00 [facility] HPV9 2019-03-04 Completed [facility] of 00:00:00 [facility] HPV9 2019-03-04 Completed [facility] of 00:00:00 [facility] HPV9 2019-03-04 Completed University of 00:00:00 [facility] HPV9 2019-01-14 Completed [facility] of 00:00:00 [facility] HPV9 2019-01-14 Completed [facility] 00:00:[facility] 2019-01-14 Completed [facility] 00[facility]00:00 [facility] 2019-01-14 Completed [facility] 00:00:00 [facility] 2019-01-14 Completed [facility] 00[facility]00:00 [facility] 2019-01-14 Completed [facility] 00:00:00 [facility] 2019-01-14 Completed [facility] 00:00:[facility] 2019-01-14 Completed [facility] 00[facility]00:[address] [facility] 2019-01-14 Completed [facility] 00:00:[address] [facility] 2019-01-14 Completed [facility] of 00:00:00 [facility] HPV9 2019-01-14 Completed [facility] 00:00:00 [facility] 2019-01-14 Completed [facility] 00:00:00 [facility] 2019-01-14 Completed [facility] of 00:00:00 [facility] 2019-01-14 Completed University of 00:00:00 [facility] Vital Signs Vital Name Observation Time Observation Value Comments Source HEIGHT 2020-11-08 13:25:00 167.6 cm WEIGHT 2020-11-08 13:25:00 65.318 kg HEIGHT 2020-10-26 11:21:00 167.6 cm WEIGHT 2020-10-26 11:21:00 65.318 kg WEIGHT 2020-08-23 06:03:00 72.122 kg HEIGHT 2020-08-23 06:03:00 167.6 cm HEIGHT 2020-08-22 10:38:00 167.6 cm WEIGHT 2020-08-22 10:38:00 72.122 kg HEIGHT 2020-11-29 23:55:00 167.6 cm WEIGHT 2020-11-29 23:55:00 64.864 kg Systolic blood 2022-05-08 19:47:00 107 mm[Hg] Univer sity of pressure [facility] Diastolic blood 2022-05-08 19:47:00 71 mm[Hg] Unive rsity of pressure [facility] Heart rate 2022-05-08 19:47:00 67 /min Universi ty of [facility] Body height 2022-05-08 19:47:00 167.6 cm [facility] Body weight 2022-05-08 19:47:00 80.74 kg [facility] BMI 2022-05-08 19:47:00 28.73 kg/m2 [facility] Oxygen saturation in 2022-05-08 19:47:00 100 /min University of Arterial blood by [place] [employer] [facility] Pulse oximetry [facility] HEIGHT 2022-04-25 19:29:00 167.6 cm WEIGHT 2022-04-25 19:29:00 75.751 kg HEIGHT 2022-04-25 19:29:00 167.6 cm WEIGHT 2022-04-25 19:29:00 75.751 kg Systolic blood 2022-02-27 20:00:23 124 mm[Hg] Univer sity of pressure [facility] Diastolic blood 2022-02-27 20:00:23 81 mm[Hg] Unive rsity of pressure [facility] Heart rate 2022-02-27 20:00:23 76 /min [facility] Respiratory rate 2022-02-27 20:00:23 18 /min Univ ers[facility] Oxygen saturation in 2022-02-27 20:00:23 100 /min University of Arterial blood by [facility] Pulse oximetry Branch Body temperature 2022-02-27 18:26:00 37.06 Sheree Univ ers[facility] Body height 2022-02-27 18:26:00 167.6 cm [facility] Body weight 2022-02-27 18:26:00 79.379 kg [facility] BMI 2022-02-27 18:26:00 28.25 kg/m2 [facility] Systolic blood 2022-01-25 17:00:00 120 mm[Hg] Univer sity of pressure [facility] Diastolic blood 2022-01-25 17:00:00 73 mm[Hg] Unive rsity of pressure [facility] Heart rate 2022-01-25 17:00:00 63 /min [facility] Respiratory rate 2022-01-25 17:00:00 18 /min Univ ers[facility] Oxygen saturation in 2022-01-25 17:00:00 98 /min [facility] Arterial blood by [place] [facility] Body temperature 2022-01-25 14:20:00 37.56 Sheree Univ ersity of [facility] Body height 2022-01-25 14:20:00 167.6 cm [facility] [place] Body weight 2022-01-25 14:20:00 79.833 kg Universi ty of [facility] BMI 2022-01-25 14:20:00 28.41 kg/m2 Universi ty of [facility] HEIGHT 2021-11-05 21:55:00 167.6 cm WEIGHT 2021-11-05 [...] 17:30:00 116 mm[Hg] Univer sity of pressure [facility] Diastolic blood 2021-04-03 17:30:00 58 mm[Hg] Unive rsity of pressure [facility] Heart rate 2021-04-03 17:30:00 62 /min Universi ty of [facility] Respiratory rate 2021-04-03 17:30:00 17 /min [facility] Oxygen saturation in 2021-04-03 17:30:00 100 /min University of Arterial blood by [facility] Pulse oximetry Branch Body temperature 2021-04-03 16:14:00 37.17 Sheree Univ ersity of [facility] Body height 2021-04-03 16:14:00 167.6 cm Universi ty of [facility] Body weight 2021-04-03 16:14:00 73.483 kg Universi ty of [facility] BMI 2021-04-03 16:14:00 26.15 kg/m2 [facility] HEIGHT 2020-11-29 23:55:00 167.6 cm WEIGHT 2020-11-29 23:55:00 64.864 kg HEIGHT 2020-11-08 13:25:00 167.6 cm WEIGHT 2020-11-08 13:25:00 65.318 kg HEIGHT 2020-10-26 11:21:00 167.6 cm WEIGHT 2020-10-26 11:21:00 65.318 kg WEIGHT 2020-08-23 06:03:00 72.122 kg HEIGHT 2020-08-23 06:03:00 167.6 cm HEIGHT 2020-08-22 10:38:00 167.6 cm WEIGHT 2020-08-22 10:38:00 72.122 kg Systolic blood 2020-05-22 16:36:00 121 mm[Hg] Univer sity of pressure [facility] Diastolic blood 2020-05-22 16:36:00 85 mm[Hg] Unive rsity of pressure [facility] Heart rate 2020-05-22 16:36:00 62 /min [facility] Respiratory rate 2020-05-22 16:36:00 16 /min Univ ers[facility] Oxygen saturation in 2020-05-22 16:36:00 100 /min University of Arterial blood by [facility] Pulse oximetry Branch Body temperature 2020-05-22 15:02:00 35.89 Sheree Univ [facility] Body weight 2020-05-22 15:02:00 74.844 kg [facility] BMI 2020-05-22 15:02:00 26.63 kg/m2 [facility] Systolic blood 2020-05-22 16:36:00 121 mm[Hg] Univer sity of pressure [facility] Diastolic blood 2020-05-22 16:36:00 85 mm[Hg] Unive rsity of pressure [facility] Heart rate 2020-05-22 16:36:00 62 /min [facility] Respiratory rate 2020-05-22 16:36:00 16 /min Univ ersity of [facility] Oxygen saturation in 2020-05-22 16:36:00 100 /min University of Arterial blood by [facility] Pulse oximetry Branch Body temperature 2020-05-22 15:02:00 35.89 Sheree [facility] Body weight 2020-05-22 15:02:00 74.844 kg [facility] BMI 2020-05-22 15:02:00 26.63 kg/m2 [facility] BP Systolic 2022-05-07 17:06:00 112 mm[Hg] BP Diastolic 2022-05-07 17:06:00 73 mm[Hg] Weight Measured 2022-05-07 17:06:00 176.80 pounds Height Measured 2022-05-07 17:06:00 63.50 inches Body Temperature 2022-05-07 17:06:00 97.60 degrees Heart Rate 2022-05-07 17:06:00 80.00 /min Respiratory Rate 2022-05-07 17:06:00 24.00 /min Oxygen saturation in 2022-04-25 19:31:00 99 /min [facility] Arterial blood by Medical nter Pulse oximetry Systolic blood 2022-04-25 19:29:00 113 mm[Hg] [facility] Diastolic blood 2022-04-25 19:29:00 76 mm[Hg] [facility] Heart rate 2022-04-25 19:29:00 75 /min [facility] Body temperature 2022-04-25 19:29:00 37.06 Sheree [facility] Respiratory rate 2022-04-25 19:29:00 17 /min [facility] Body height 2022-04-25 19:29:00 167.6 cm [facility] Body weight 2022-04-25 19:29:00 75.751 kg [facility] BMI 2022-04-25 19:29:00 26.95 kg/m2 [facility] Heart Rate 2021-12-06 13:04:21 [facility] Respitory Rate 2021-12-06 13:04:21 Conradoori al [facility] Diastolic (mm Hg) 2021-12-06 13:04:03 Mem orial [facility] Heart Rate 2021-12-06 13:04:03 [facility] Systolic (mm Hg) 2021-12-06 13:04:03 Devin rial Toño Temperature Oral (F) 2021-12-06 13:03:39 98 F [facility] Heart Rate 2021-12-06 08:25:08 [facility] Respitory Rate 2021-12-06 08:25:08 [facility] Systolic (mm Hg) 2021-12-06 08:24:53 Devin [facility] [place] Diastolic (mm Hg) 2021-12-06 08:24:53 Mem o[facility] Temperature Oral (F) 2021-12-06 08:24:27 98.2 F [facility] Respitory Rate 2021-12-06 04:07:25 [facility] Systolic (mm Hg) 2021-12-06 04:06:51 Devin rial [facility] Diastolic (mm Hg) 2021-12-06 04:06:51 Mem orial [facility] Temperature Oral (F) 2021-12-06 04:06:42 98.3 F [facility] Height 2021-12-06 02:26:00 165.1 cm [facility] Weight 2021-12-06 02:26:00 [facility] BMI Calculated 2021-12-06 02:26:00 Mem[facility] Weight 2021-12-05 15:35:00 [facility] BMI Calculated 2021-12-05 15:35:00 [facility] [place] Height 2021-12-04 19:52:00 167.64 cm [facility] Systolic blood 2021-11-06 02:49:00 121 mm[Hg] [facility] Diastolic blood 2021-11-06 02:49:00 86 mm[Hg] [facility] Heart rate 2021-11-06 02:49:00 83 /min [facility] Body temperature 2021-11-06 02:49:00 36.89 Sheree [facility] Respiratory rate 2021-11-06 02:49:00 15 /min [facility] Oxygen saturation in 2021-11-06 02:49:00 99 /min [facility] Arterial blood by Medical Ce nter Pulse oximetry Body height 2021-11-05 21:55:00 167.6 cm [facility] Body weight 2021-11-05 21:55:00 78.019 kg [facility] BMI 2021-11-05 21:55:00 27.76 kg/m2 [facility] BP Systolic 2021-09-27 16:19:00 133 mm[Hg] BP Diastolic 2021-09-27 16:19:00 88 mm[Hg] Weight Measured 2021-09-27 16:19:00 182.40 pounds Height Measured 2021-09-27 16:19:00 63.50 inches Body Temperature 2021-09-27 16:19:00 Heart Rate 2021-09-27 16:19:00 90.00 /min Respiratory Rate 2021-09-27 16:19:00 BP Systolic 2020-05-23 15:21:00 119 mm[Hg] BP Diastolic 2020-05-23 15:21:00 74 mm[Hg] Weight Measured 2020-05-23 15:21:00 168.60 pounds Height Measured 2020-05-23 15:21:00 63.50 inches Body Temperature 2020-05-23 15:21:00 98.80 degrees Heart Rate 2020-05-23 15:21:00 64.00 /min Respiratory Rate 2020-05-23 15:21:00 17.00 /min BP Systolic 2018-08-20 10:14:00 118 mm[Hg] BP Diastolic 2018-08-20 10:14:00 73 mm[Hg] Weight Measured 2018-08-20 10:14:00 162.20 pounds Height Measured 2018-08-20 10:14:00 63.50 inches Body Temperature 2018-08-20 10:14:00 98.20 degrees Heart Rate 2018-08-20 10:14:00 64.00 /min Respiratory Rate 2018-08-20 10:14:00 18.00 /min BP Systolic 2018-07-22 13:01:00 110 mm[Hg] BP Diastolic 2018-07-22 13:01:00 65 mm[Hg] Weight Measured 2018-07-22 13:01:00 158.80 pounds Height Measured 2018-07-22 13:01:00 63.50 inches Body Temperature 2018-07-22 13:01:00 98.10 degrees Heart Rate 2018-07-22 13:01:00 80.00 /min Respiratory Rate 2018-07-22 13:01:00 16.00 /min BP Systolic 2017-11-20 11:44:00 109 mm[Hg] BP Diastolic 2017-11-20 11:44:00 73 mm[Hg] Weight Measured 2017-11-20 11:44:00 156.60 pounds Height Measured 2017-11-20 11:44:00 63.50 inches Body Temperature 2017-11-20 11:44:00 98.70 degrees Heart Rate 2017-11-20 11:44:00 82.00 /min Respiratory Rate 2017-11-20 11:44:00 Procedures Procedure Date / Time Performing Clinician Source Performed CONSENT/REFUSAL FOR 2022-05-08 19:39:48 [facility] DIAGNOSIS AND TREATMENT [facility] REFERRAL- REQUEST/RESPONSE 2022-04-27 05:01:00 Doctor Fidencio [facility] Name [facility] POCT TEST 2022-02-27 19:01:00 Capo Lobo [facility] TROPONIN I 2022-02-27 18:57:00 Singer [facility] COMP. METABOLIC PANEL 2022-02-27 18:57:00 Capo Lobo [facility] ([id number]) [facility] CBC WITH DIFF 2022-02-27 18:57:00 [facility] URINALYSIS 2022-02-27 18:57:00 [facility] COVID-19 (ID NOW RAPID 2022-02-27 18:57[facility] XR CHEST 1 VW 2022-02-27 18:40:16 [place] [facility] CONSENT/REFUSAL FOR 2022-02-27 18:15:15 Doctor Fidencio [facility] DIAGNOSIS AND TREATMENT [facility] CREATINE KINASE 2022-01-25 14:41:00 Petrona Pan [facility] MAGNESIUM 2022-01-25 14:41:00 Petrona Pan [facility] COMP. METABOLIC PANEL 2022-01-25 14:41:00 Petrona [facility] ([id number] Medical Branch CBC WITH DIFF 2022-01-25 14:41:00 Petrona Pan [facility] [place] URINALYSIS 2022-01-25 14:38:00 Petrona Pan [facility] [place] NOTICE OF PRIVACY 2022-01-25 14:16:02 Doctor Unassigned, [facility] PRACTICES [place] [facility] CONSENT/REFUSAL FOR 2022-01-25 14:11:03 Doctor Unassigned, [facility] DIAGNOSIS AND TREATMENT [place] [facility] CT BRAIN WITHOUT IV 2021-11-06 00:08:00 May Mullins [facility] CONTRAST Center CT SPINE CERVICAL WITHOUT 2021-11-06 00:08:00 Susanna [facility] IV CONTRAST Center ECG 12-LEAD 2021-11-05 22:40:48 Susanna [place]ine [facility] ECG 12-LEAD 2021-11-05 22:40:48 Unknown, Hl7 Doctor [facility] CBC W/PLT COUNT & AUTO 2021-11-05 22:38:00 May Mullins [facility] DIFFERENTIAL [place] COMPREHENSIVE METABOLIC 2021-11-05 22:38:00 May Mullins [facility] PANEL [place] HCG, QUANTITATIVE, 2021-11-05 22:38:00 Susanna May Cristine [facility] [place] LACTIC ACID, VENOUS 2021-11-05 22:38:00 May Mullins [facility] HIGH SENSITIVITY TROPONIN 2021-11-05 22:38:00 May Mullins [facility] I [place] CBC W/PLT COUNT & AUTO 2021-11-05 22:38:00 Susanna [facility] EKG-SCANNED 2021-11-05 00:00:00 Nate Mace [facility] Scanning [place] CBC W/PLT COUNT & AUTO 2021-09-04 04:15:00 Sindhu Medeiros [facility] BASIC METABOLIC PANEL (7) 2021-09-04 04:15:00 Sindhu Medeiros [facility] MAGNESIUM 2021-09-04 04:15:00 Sindhu Medeiros [facility] C-REACTIVE PROTEIN 2021-09-04 04:15:00 Sindhu Medeiros [facility] ANTI-NUCLEAR ANTIBODY 2021-09-04 04:15:00 Sindhu Medeiros [facility] (ROSI) Center CBC W/PLT COUNT & AUTO 2021-09-04 04:15:00 Sindhu Medeiros [facility] BLOOD CULTURE 2021-09-04 04:14:00 Sindhu Medeiros [facility] CTA BRAIN 2021-09-03 18:38:00 MckenzieRobson allen [facility] W[facility] & AUTO 2021-09-03 04:45:00 [facility] BASIC METABOLIC PANEL (7) 2021-09-03 04:45:00 Sindhu Medeiros [facility] MAGNESIUM 2021-09-03 04:45:00 [facility] CBC W/PLT COUNT & AUTO 2021-09-03 04:45[facility]00 [facility] 2D ECHO W/ DOPPLER 2021-09-02 17:12:55 [facility] (CW/PW/COLOR) [facility] TROPONIN I 2021-09-02 06:46:00 [facility] TROPONIN I 2021-09-02 03:53:00 [facility] BASIC METABOLIC PANEL (7) 2021-09-02 03:53:00 [facility] LIPID PANEL 2021-09-02 03:53:00 [facility] PROTHROMBIN TIME/INR 2021-09-02 03:53:00 [facility] MAGNESIUM 2021-09-02 03:53:00 [facility] Center PHOSPHORUS 2021-09-02 03:53:00 [facility] Center CBC W/PLT COUNT & AUTO 2021-09-02 03:53:00 [facility] DIFFERENTIAL [facility] TSH/FREE T4 IF INDICATED 2021-09-02 03:53:00 [facility] HEMOGLOBIN A1C 2021-09-02 03:53:00 [facility] FERRITIN 2021-09-02 03:53:00 [facility] IRON, TIBC, % SAT. 2021-09-02 03:53:00 [facility] (WITHOUT FERRITIN) [facility] CBC W/PLT COUNT & AUTO 2021-09-02 03:53:00 [facility] DIFFERENTIAL [facility] MR BRAIN WITH & WITHOUT IV 2021-09-02 00:00:00 Kailey Juárez [facility] CONTRAST [facility] URINALYSIS W/ MICROSCOPIC 2021-09-01 22:32:00 Kailey Juárez [facility] RAPID DRUG SCREEN, URINE 2021-09-01 22:32:00 [facility] US PELVIS WITH ENDOVAG 2021-09-01 20:25:00 Kailey Juárez [facility] WITH DOPPLER [facility] CT BRAIN WITHOUT IV 2021-09-01 18:12:00 Kailey Juárez [facility] CONTRAST [facility] SARS-COV2/RT-PCR ([facility] & 2021-09-01 18:01:00 Kailey Juárez [facility] REF LABS) [facility] CBC W/PLT COUNT & AUTO 2021-09-01 17:53:00 Kailey Juárez [facility] DIFFERENTIAL [facility] BASIC METABOLIC PANEL (7) 2021-09-01 17:53:00 Kailey Juárez [facility] TROPONIN I 2021-09-01 17:53:00 Kailey Juárez [facility] D-DIMER 2021-09-01 17:53:00 [facility] W/[facility]T [facility] & AUTO 2021-09-01 17:53:00 Kailey Juárez [facility] XR CHEST 1 VIEW PORTABLE / 2021-09-01 17:48:00 Kailey Juárez [facility] ED ECG INTERPRETATION 2021-09-01 17:35:00 Kailey Ju[facility]rez [facility] EKG-SCANNED 2021-09-01 00:00:00 Provider, [facility] URINALYSIS 2021-04-03 16:46:[address] [facility] LIPASE 2021-04-03 16:36:[address] [facility] HEPATIC FUNCTION PANEL 2021-04-03 16:36:00 [id number] (ALB,T.PRO,BILI [facility] T,BU/BC,ALT,AST,ALK PHOS) BASIC METABOLIC PANEL (NA, 2021-04-03 16:36:00 [facility] K, CL, CO2, GLUCOSE, BUN, Medica l Branch CREATININE, CA) CBC WITH DIFF 2021-04-03 16:36:00 [facility] Marli [facility] CONSENT/REFUSAL FOR 2021-04-03 16:08:40 Doctor Unassigned, [facility] DIAGNOSIS AND TREATMENT [facility] HYSTERECTOMY 2020-11-08 05:00:00 [facility] spencer CHOLECYSTECTOMY 2020-07-31 06:00:00 [facility] XR CHEST 1 VW 2020-05-22 15:46:02 Ana Boo [facility] COVID-19 (ID NOW RAPID 2020-05-22 15:32:00 Ana Boo [facility] TESTING) Medical Branch LIPASE 2020-05-22 15:21:00 Hector Oren [facility] TROPONIN I 2020-05-22 15:21:00 Young, [facility] COMP. METABOLIC PANEL 2020-05-22 15:21:00 Oren Young [facility] ([id number]) [facility] [place] CBC WITH DIFF 2020-05-22 15:21:00 Oren Young [facility] PROTHROMBIN TIME / INR 2020-05-22 15:21:00 Oren Young [facility] D-DIMER 2020-05-22 15:21:00 Ana Boo [facility] ACTIVATED PARTIAL THRMPLAS 2020-05-22 15:21:00 Oren Young [facility] URINALYSIS 2020-05-22 15:21:00 Oren Young [facility] POCT TEST 2020-05-22 15:21:00 Oren Young [facility] EKG-12 LEAD 2020-05-22 15:08:07 Oren Young [facility] NOTICE OF PRIVACY 2020-05-22 14:53:53 Doctor Unassigned, [facility] PRACTICES [place] [facility] CONSENT/REFUSAL FOR 2020-05-22 14:52:25 Doctor Unassigned, [facility] DIAGNOSIS AND TREATMENT [place] [facility] Plan of Care Planned Activity Planned Date Details Comments Source Future Scheduled 2022-05-08 [facility] 14:38:11 VACCINES (1 of 3 - 3-dose series) [code = HEPATITIS B VACCINES (1 of 3 - 3-dose series)] Future Scheduled 2022-05-08 [facility] (#1) [code = COVID-19 VACCINE (#1)] Future Scheduled 2022-05-08 [facility]atitis C [facility] Test 14:38:11 screening (procedure) [code = 285443807] Future Scheduled 2022-05-08 [facility] Test 14:38:11 malignant neoplasm of cervix (procedure) [code = 683859384] Future Scheduled 2022-05-08 INFLUENZA VACCINE [facility] Test 14:38:11 [code = INFLUENZA VACCINE] Future Scheduled 2022-04-13 [facility]ITIS B [facility] 17:39:34 VACCINES (1 of 3 - 3-dose series) [code = HEPATITIS B VACCINES (1 of 3 - 3-dose series)] Future Scheduled 2022-04-13 COVID-19 [facility]ACCINE [facility] Test 17:39:34 (#1) [code = COVID-19 VACCINE (#1)] Future Scheduled 2022-04-13 [facility] 17:39:34 screening (procedure) [code = 799801534] Future Scheduled 2022-04-13 [facility] Test 17:39:34 malignant neoplasm of cervix (procedure) [code = 952470067] Future Scheduled 2022-04-13 INFLUENZA VACCINE Method [facility] Test 17:39:34 [code = INFLUENZA VACCINE] Future Scheduled 2022-04-13 [facility]IS B [facility] 17:39:34 VACCINES (1 of 3 - 3-dose series) [code = HEPATITIS B VACCINES (1 of 3 - 3-dose series)] Future Scheduled 2022-04-13 COVID-19 VACCINE [facility] Test 17:39:34 (#1) [code = COVID-19 VACCINE (#1)] Future Scheduled 2022-04-13 [facility] 17:39:34 screening (procedure) [code = 458537303] Future Scheduled 2022-04-13 [facility] Test 17:39:34 malignant neoplasm of cervix (procedure) [code = 381503350] Future Scheduled 2022-04-13 INFLUENZA VACCINE [facility] Test 17:39:34 [code = INFLUENZA VACCINE] Future Scheduled 2022-04-13 [facility]IS B [facility] 17:39:34 VACCINES (1 of 3 - 3-dose series) [code = HEPATITIS B VACCINES (1 of 3 - 3-dose series)] Future Scheduled 2022-04-13 COVID-19 VACCINE [facility] Test 17:39:34 (#1) [code = COVID-19 VACCINE (#1)] Future Scheduled 2022-04-13 [facility] 17:39:34 screening (procedure) [code = 407705910] Future Scheduled 2022-04-13 [facility] Test 17:39:34 malignant neoplasm of cervix (procedure) [code = [id number]] Future Scheduled 2022-04-13 INFLUENZA VACCINE Method ist [...] C enter of cervix (procedure) [code = [id number]] Future Scheduled [address] [facility] 00:[facility]:00 malignant neoplasm Medical C enter of cervix (procedure) [code = 476510862] Future Scheduled [address] [facility] 00:00:00 malignant neoplasm Medical C enter of cervix (procedure) [code = 179134204] Future Scheduled 2012 DTAP/TDAP/TD [facility] (#1) [code = [facility] COVID-19 VACCINE (#1)] Future Scheduled 1994-01-17 COVID-[address] [facility] 00:00:00 (#1) [code = [facility] COVID-19 VACCINE (#1)] Future Scheduled 1994-01-17 COVID-[address] [facility] Test 00:00:00 (#1) [code = [facility] COVID-19 VACCINE (#1)] Goal Plan of Care Note [code = 83907-4] Goal Plan of Care Note [code = 08032-4] Goal Plan of Care Note [code = 57941-6] Goal Plan of Care Note [code = 92638-5] Goal Plan of Care Note [code = 00527-1] Goal Plan of Care Note [code = 37778-0] Goal Plan of Care Note [code = 62068-7] Goal Plan of Care Note [code = 38826-9] Goal Plan of Care Note [code = 57580-1] Goal Plan of Care Note [code = 34064-5] Goal Plan of Care Note [code = 38200-3] Goal Plan of Care Note [code = 35490-9] Goal Plan of Care Note [code = 88923-1] Goal Plan of Care Note [code = 87323-0] Goal Plan of Care Note [code = 41847-6] Goal Plan of Care Note [code = 04760-9] Goal Plan of Care Note [code = 67738-1] Goal Plan of Care Note [code = 12839-9] Goal Plan of Care Note [code = 32060-8] Goal Plan of Care Note [code = 82226-4] Goal Plan of Care Note [code = 63515-1] Goal Plan of Care Note [code = 81134-6] Goal Plan of Care Note [code = 67154-9] Goal Plan of Care Note [code = 18177-8] Goal Plan of Care Note [code = 25585-4] Goal Plan of Care Note [code = 53038-2] Goal Plan of Care Note [code = 15552-7] Goal Plan of Care Note [code = 81513-9] Goal Plan of Care Note [code = 20276-9] Goal Plan of Care Note [code = 67393-1] Encounters Start End Encounter Admission Attending Care Care Encounter Source Date/Time Date/Time Type Type Clinicians Facility Department ID 2022-01-04 Outpatient [facility] [id number] MD 11:31:03 [id number] [facility] 2021-06-[address] [facility] [id number] Univers 17:22:42 ity [facility] 2021-06-[address] [facility] [id number] Univers 22:15:34 ity [facility] 2021-05-20 Outpatient MARTINEZ, [facility] Surgery [id number] [facility] 08:16:10 [place] 2021-05-19 Outpatient MARTINEZ, [facility] Surgery [id number] [facility] 22:29:12 [place] 2020-11-29 [id number] 23:35:00 [facility] 2022-05-17 2022-05-[address] MONTERO [facility] [id number] Univers 13:00:00 13:00:[address] [facility] 2022-05-11 2022-05-11 [facility] 1.2.840.114 [id number] Univers 00:00:00 00:00:00 [facility] 350.1.13.10 ity of [place] 4.2.7.2.686 Biju as ZAINAB?BLEA [id number] [address] OFFICE [facility] 2022-05-10 2022-05-10 Telephone [facility] 1.2.840.114 [id number] Univers 00:00:00 00:00:00 [facility] 350.1.13.10 ity of [place] 4.2.7.2.686 Biju as ZAINAB?BLEA [id number] [address] 2022-05-10 2022-05-10 Telephone [facility] 12.840.114 [id number] Univers 00:00:00 00:00:00 [facility] 350.1.13.10 ity of [place] 4.2.7.2.686 Biju as ZAINAB?BLEA [id number] [address] 2022-05-08 2022-05-08 Outpatient R STACEYVINCE [facility] [id number] Univers 15:00:00 16:13:25 STACEY VINCE ity [facility] 2022-05-08 2022-05-[address] [facility] 1.2.840.114 [id number] Univers 15:00:00 16:13:25 Visit Vince [facility] 350.1.13.10 ity of [place] 4.2.7.2.686 Biju as ZAINAB?BLEA [phone] Pr dical [address] MEDICAL OFFICE [facility] 2022-05-08 2022-05-08 Outpatient Cristine [address]VINCE [facility] [id number] Univers 15:00:00 15:00:00 STACEYVINCE [id number] ity [facility] 2022-05-08 2022-05-08 Orders Doctor ZORA 1.2.840.114 [id number] [facility] 00:00:00 00:00:00 Only Unassigned, KIRA 350.1.13.10 ity of [place] [facility] 4.2.7.2.686 Biju as [phone] [address] 2022-05-07 2022-05-07 Outpatient [id number]- [id number] ff 1z4bb8-l 00:00:00 00:00:00 Visit efbc-43a1 fbc-43a1-b -c2sr-527 0ec-2780fb 2xp6z1468 7t1443 2022-04-27 2022-04-27 Orders Doctor ZORA 1.2.840.114 [id number] [facility] 00:00:00 00:00:00 Only Unassigned, KIRA 350.1.13.10 ity of [place] [facility] 4.2.7.2.686 Biju as [phone] [address] 2022-04-26 2022-04-26 Outpatient [id number]- [id number] 9f v963s3-2 00:00:00 00:00:00 Visit 7g4g-14b6 m2c-92p3-b -s36k-684 03b-512b27 a058p2149 4c0810 2022-04-25 2022-04-25 Emergency ER MARCUM, [facility] Emergency [id number] [facility] 19:50:00 20:03:00 [facility] 2022-04-25 2022-04-25 Emergency [id number] 19:50:00 20:03:00 [facility] 2022-02-27 2022-02-27 Emergency [facility] ERT [id number] Univers 13:28:00 15:09:00 CAPO mathis [facility] 2022-02-27 2022-02-27 [facility] [id number] Univers 13:28:00 15:09:00 Capo CLEANING 350.1.13.10 i guevara [facility] 4.2.7.2.686 [facility] [id number] [address] 2022-01-25 2022-01-25 Emergency [facility] [id number] Univers 09:24:00 12:05:00 PETRONA mathis [facility] 2022-01-25 2022-01-25 Emergency [facility] 1.2.840.114 [id number] Univers 09:24:00 12:05:00 Petrona CLEANING 350.1.13.10 ittam [facility] 4.2.7.2.686 [facility] [id number] [address] 2021-12-05 2021-12-06 Inpatient Pending sale to [facility] [id number] Memoria 15:12:00 16:35:00 r Toño 00 l [place] Cindy 2021-12-05 2021-12-06 Inpatient Pending sale to [facility] [id number] Memoria 15:12:00 16:35:00 r [place] 00 [place] Cindy nn 2021-12-05 2021-12-06 Outpatient Juan, [facility] [id number] 10:12:00 11:35:00 Beatriz L 00 2021-12-05 2021-12-06 Inpatient JUAN MHFB MHFB 7500 [facility]FB 10:12:00 11:35:00 BEATRIZ 2021-11-05 2021-11-06 [facility] [id number] [facility] 22:00:00 02:50:00 [place] 2021-11-05 2021-11-06 Emergency ER Susanna, [facility] [id number] 22:00:00 02:50:00 [facility] 2021-11-05 2021-11-05 Outpatient [facility] [id number] [facility] 00:00:00 23:59:00 Marissa Medicin e 2021-11-05 2021-11-05 Orders [facility] [id number] 00:00:00 00:00:00 Only [facility] 2021-11-05 2021-11-05 Travel [facility] [id number] [facility] 00:00:00 00:00:00 [facility] 2021-09-01 2021-09-04 Inpatient ER [facility] Internal [id number] [facility] 17:19:00 15:02:00 [facility] 2021-09-01 2021-09-04 Hospital [facility] [id number] [facility] St 17:19:00 15:02:00 Encounter Latisha Morganenna Александрdeisy [facility] 2021-09-02 2021-09-02 Travel [facility] [id number] [facility] 00:[facility]00 00:00:00 [facility] 2021-04-03 2021-04-03 Emergency Nixon, [facility] 1.2.840.114 [id number] Univers 11:16:00 13:07:00 Marli Cleaning 350.1.13.10 i ty of [place] 4.2.7.2.686 [facility] [id number] [facility] [address] 2021-04-03 2021-04-03 Orders Doctor BLAKELY 1.2.840.114 [id number] Univers 00:00:00 00:00:00 Only Unassigned, KIRA 350.1.13.10 ity of [place] [facility] 4.2.7.2.686 Biju [id number] [facility] [address] 2020-11-21 2020-11-21 Emergency ER [facility] Emergency [id number] [facility] 15:47:00 15:47:00 2020-11-03 2020-11-03 Outpatient EL [facility] SLS [id number] [facility] 00:00:00 00:00:00 2020-10-22 2020-10-22 Emergency RUFFIN, [place] [address] [id number] [address] [place] 00:00:00 00:00:00 RADHA Carl5 Metho di 2020-08-19 2020-08-19 Outpatient EL [facility] [id number] SLS 00:00:00 00:00:00 2020-08-16 2020-08-16 Outpatient HIDALGO, [facility] [id number] [place] 00:00:00 00:00:00 SYEDA 745 Meth violet 2020-08-10 2020-08-10 Emergency MARCUM, [facility] 064 [id number] [address] [place] 00:00:00 00:00:00 ERLINDA 417 Method i 2020-07-21 2020-07-23 Inpatient BUNCH, [facility] 064 [id number] [address] [place] 00:00:00 00:00:00 SIDRAH 738 Method i 2020-07-12 2020-07-12 Outpatient HIDALGO, [facility] [id number] [place] 00:00:00 00:00:00 SYEDA 514 Meth violet 2020-07-05 2020-07-05 Emergency TANYA BARTON [facility] 064 [id number] [place] 00:00:00 00:00:00 916 Method i 2020-05-22 2020-05-22 Outpatient R EMA, [facility] [id number] [facility] 13:30:00 13:30:00 ANA [id number] delfina of [facility] 2020-05-22 2020-05-22 [facility] [id number] 10:05:00 12:50:00 Ana Cleaning 350.1.13.10 [place] 4.2.7.2.686 [place] [id number] 084 2020-05-22 2020-05-22 [facility] 1.2.474.875 [id number] [facility] 10:05:00 12:50:00 Ana Cleaning 350.1.13.10 ity of [place] 4.2.7.2.686 [id number] 084 [place] 2020-05-22 2020-05-22 Orders Doctor ZORA 1.2.840.114 [id number] 00:00:00 00:00:00 Only Unassigned, KIRA 350.1.13.10 [place] [facility] 4.2.7.2.686 [id number] [facility] 2020-05-22 2020-05-22 Orders Doctor ZORA 1.2.840.114 [id number] Univers 00:00:00 00:00:00 Only Unassigned, KIRA 350.1.13.10 ity of [place] [facility] 4.2.7.2.686 Biju as [phone] [address] 2019-03-12 2019-03-12 Telephone [facility] 1.2.840.114 [id number] 00:00:00 00:00:00 Lauren C NET REPAIRER 350.1.13.10 REGIONAL 4.2.7.2.686 MATERNAL [id number] & CHILD [address] [place] [address] 2019-03-12 2019-03-12 Telephone Akinpe, [facility] 1.2.840.114 [id number] Univers 00:00:00 00:00:00 Lauren C NET REPAIRER 350.1.13.10 ity of [facility] 4.2.7.2.686 Biju as MATERNAL [phone] Med ical & CHILD [address] [place] [address] Results Test Description Test Time Test Comments Results Result Comments Source TROPONIN I 2022-02-27 19:33:51 Test Item Value Reference Range Interpretation Comme nts TROPONIN I (test code = 0.003 ng/mL See_Comment [Au tomated message] The 8857028523) system which ge nerated this result tra [...] biotin. Lab Interpretation Normal (test code = 99781-9) [facility] WITH [id number] 19:24:09 Test Item Value Reference Range Interpretation Comments WBC (test code = See_Comment [Automated 1890-2) message] The sy stem which generated this [...] RDW-SD (test code = 40.0 fL 39-49.9 19646-9) RDW-CV (test code = 14.1 % 12-15.5 788-0) PLT (test code = See_Comment [Automated 777-3) message] The sy stem which generated this result transmitted reference range : 166 - 358 10*3/ ?L. The reference r ryann was not used to interpret this result as normal/abnormal . MPV (test code = 10.4 fL 9.5-12.9 14844-4) NRBC/100 WBC (test See_Comment [Automat ed code = 7220954104) message] The system which generated this result transmitted reference range : 0.0 - 10.0 /100 WBCs. The refer ence range was not u sed to interpret th is result as normal/abnormal . NRBC x10^3 (test code See_Comment [Auto mated = 0448141227) message] The s ystem which generated this result transmitted reference range : 10*3/?L. The reference range was not used to interpret this result as normal/abnormal . GRAN MAT (NEUT) % 66.3 % (test code = 770-8) IMM GRAN % (test code 0.20 % = 8560390142) LYMPH % (test code = 24.6 % 736-9) MONO % (test code = 7.2 % 5905-5) EOS % (test code = 0.9 % 713-8) BASO % (test code = 0.8 % 706-2) GRAN MAT x10^3(ANC) 4.25 10*3/uL 1.88-7.09 (test code = 0253139435) IMM GRAN x10^3 (test 0-0.06 code = 7391926459) LYMPH x10^3 (test code 1.58 10*3/uL 1.32-3.29 = 731-0) MONO x10^3 (test code 0.46 10*3/uL 0.33-0.92 = 742-7) EOS x10^3 (test code = 0.06 10*3/uL 0.03-0.39 711-2) BASO x10^3 (test code 0.05 10*3/uL 0.01-0.07 = 704-7) Lab Interpretation Abnormal (test code = 49254-6) [facility] (22569[facility]2022-02-27 19:23:49 Test Item Value Reference Range Interpretation Comments NA (test code = 142 mmol/L 135-145 0030086375) K (test code = 3.7 mmol/L 3.5-5 4935829519) CL (test code = 104 mmol/L 98-108 1826178184) CO2 TOTAL (test code 30 mmol/L 23-31 = 9991397631) AGAP (test code = 2-16 2065320961) BUN (test code = 9 mg/dL 7-23 0489166602) GLUCOSE (test code = 109 mg/dL 70-110 8347100323) CREATININE (test code 0.66 mg/dL 0.5-1.04 = 4592860692) TOTAL BILI (test code 0.3 mg/dL 0.1-1.1 = 7677619896) CALCIUM (test code = 9.3 mg/dL 8.6-10.6 2063211425) T PROTEIN (test code 7.2 g/dL 6.3-8.2 = 3532151430) ALBUMIN (test code = 4.1 g/dL 3.5-5 4792420729) ALK PHOS (test code = 78 U/L 34-122 0533496949) ALTv (test code = 25 U/L 5-35 2-6) AST(SGOT) (test code 27 U/L 13-40 = 7194912097) eGFR (test code = mL/min/1.73m2 1914453028) VERITO (test code = VERITO) Association of [...] or urine or abnormalities in imaging tests). [id number] 19:01:00 Test Item Value Reference Range Interpretation Comments POCT PREG (test code = 1605) negative On board controls acceptable with present C Line (test code = 3574) POCT PREG LOT # (test code = 3575) [id number] POCT PREG TEST DATE (test 06/11/23 code = 3576) Lab Interpretation (test code = Normal 67256-0) [facility]. METABOLIC PANEL ([id number])2022-01-25 15:09:17 Test Item Value Reference Range Interpretation Comments NA (test code = 140 mmol/L 135-145 8305068546) K (test code = 3.7 mmol/L 3.5-5.0 2293545348) CL (test code = 107 mmol/L 98-108 3194469269) CO2 TOTAL (test code = 28 mmol/L 23-31 1904398480) AGAP (test code = 2-16 2838971379) BUN (test code = 10 mg/dL 7-23 7260554258) GLUCOSE (test code = 115 mg/dL 70-110 H 5407873162) CREATININE (test code = 0.67 mg/dL 0.50-1.04 7251161701) TOTAL BILI (test code = 0.6 mg/dL 0.1-1.7 4907971059) CALCIUM (test code = 9.2 mg/dL 8.6-10.6 0838028018) T PROTEIN (test code = 7.2 g/dL 6.3-8.2 0173966614) ALBUMIN (test code = 4.1 g/dL 3.5-5.0 1522867955) ALK PHOS (test code = 72 U/L 34-122 0875656725) ALTv (test code = 18 U/L 5-35 1742-6) AST(SGOT) (test code = 29 U/L 13-40 0888285065) eGFR (test code = mL/min/1.73m2 1415442545) VERITO (test code = VERITO) Association of [...] tests). Lab Interpretation Abnormal (test code = 11622-5) [facility] 15:09:17 Test Item Value Reference Range Interpretation Comments MAGNESIUM (test code = 9793901324) 1.7 mg/dL 1.7-2.4 Lab Interpretation (test code = Normal 19516-8) [facility] [id number] 15:08:57 Test Item Value Reference Range Interpretation Comments CK (test code = 5594970013) 215 U/L 33-194 H Lab Interpretation (test code = Abnormal 91628-8) [facility] [id number] 14:52:13 Test Item Value Reference Range Interpretation Comments WBC (test code = See_Comment [Automated 1090-2) message] The sy stem which generated this [...] RDW-SD (test code = 40.2 fL 39.0-49.9 75003-2) RDW-CV (test code = 14.1 % 12.0-15.5 788-0) PLT (test code = See_Comment [Automated 777-3) message] The sy stem which generated this result transmitted reference range : 166 - 358 10*3/ ?L. The reference r ryann was not used to interpret this result as normal/abnormal . MPV (test code = 10.1 fL 9.5-12.9 53771-4) NRBC/100 WBC (test See_Comment [Automat ed code = 8815954875) message] The system which generated this result transmitted reference range : 0.0 - 10.0 /100 WBCs. The refer ence range was not u sed to interpret th is result as normal/abnormal . NRBC x10^3 (test code <0.01 See_Comment [Auto mated = 4170547345) message] The s ystem which generated this result transmitted reference range : 10*3/?L. The reference range was not used to interpret this result as normal/abnormal . GRAN MAT (NEUT) % 70.4 % (test code = 770-8) IMM GRAN % (test code 0.30 % = 4039465895) LYMPH % (test code = 20.3 % 736-9) MONO % (test code = 6.9 % 5905-5) EOS % (test code = 1.5 % 713-8) BASO % (test code = 0.6 % 706-2) GRAN MAT x10^3(ANC) 5.01 10*3/uL 1.88-7.09 (test code = 4976689322) IMM GRAN x10^3 (test <0.03 0.00-0.06 code = 8821968621) LYMPH x10^3 (test code 1.44 10*3/uL 1.32-3.29 = 731-0) MONO x10^3 (test code 0.49 10*3/uL 0.33-0.92 = 742-7) EOS x10^3 (test code = 0.11 10*3/uL 0.03-0.39 711-2) BASO x10^3 (test code 0.04 10*3/uL 0.01-0.07 = 704-7) Lab Interpretation Abnormal (test code = 02830-3) [facility]2022-04-27 06:18:00 Test Item Value Reference Range Interpretation Comments WBC (test code = WBC) 10.8 3.7-10.4 [facility]0843[facility]15-80 06:18:00 Test Item Value Reference Range Interpretation Comments RBC (test code = RBC) 4.83 4.20-5.40 [place] 017872-04-27 06:18:00 Test Item Value Reference Range Interpretation Comments Hgb (test code = Hgb) 11.9 12.0-16.0 [facility]zzjkhoLSOCXTJXXD2790-97-25 06:18:00 Test Item Value Reference Range Interpretation Comments Hct (test code = Hct) 36.9 36.0-48.0 [place] 017872-04-27 06:18:00 Test Item Value Reference Range Interpretation Comments MCV (test code = MCV) 76.4 80.0-98.0 [place] 22546-04-27 06:18:00 Test Item Value Reference Range Interpretation Comments MCH (test code = MCH) 24.6 pg 27.0-31.0 [place] 017872-04-27 06:18:00 Test Item Value Reference Range Interpretation Comments MCHC (test code = MCHC) 32.3 32.0-36.0 [place] 017872-04-27 06:18:00 Test Item Value Reference Range Interpretation Comments RDW (test code = RDW) 14.0 11.5-14.5 [place] 017872-04-27 06:18:00 Test Item Value Reference Range Interpretation Comments Platelet (test code = Platelet) 240 133-450 [place] 017872-04-27 06:18:00 Test Item Value Reference Range Interpretation Comments MPV (test code = MPV) 8.0 7.4-10.4 [place] 017872-04-27 06:18:00 Test Item Value Reference Range Interpretation Comments RBC Morph (test code = Normal (12/06/21 1:18 RBC Morph) AM) [place] 017872-04-27 06:18:00 Test Item Value Reference Range Interpretation Comments Plt Morph (test code = Normal (12/06/21 1:18 Plt Morph) AM) [facility] HospitalDfgeteaHHIHDDNXZP6170-02-45 06:18:00 Test Item Value Reference Range Interpretation Comments Segs (test code = Segs) 89.2 45.0-75.0 [place] 017872-04-27 06:18:00 Test Item Value Reference Range Interpretation Comments Lymphocytes (test code = Lymphocytes) 6.3 20.0-40.0 [place] 017872-04-27 06:18:00 Test Item Value Reference Range Interpretation Comments Monocytes (test code = Monocytes) 4.3 2.0-12.0 [place] 017872-04-27 06:18:00 Test Item Value Reference Range Interpretation Comments Basophils (test code = 0.2 See_Comment [Aut omated message] The Basophils) system which ge nerated this result tra nsmitted reference range : <=1.0. The reference r ryann was not used to int erpret this result as normal/abnormal . [facility] HospitalLsepmltXXMWRGKZNW0297-19-34 06:18:00 Test Item Value Reference Range Interpretation Comments Neutrophils # (test code = Neutrophils 9.6 1.5-8.1 #) [place] 017872-04-27 06:18:00 Test Item Value Reference Range Interpretation Comments Lymphocytes # (test code = Lymphocytes 0.7 1.0-5.5 #) [place] 017872-04-27 06:18:00 Test Item Value Reference Range Interpretation Comments Monocytes # (test code 0.5 See_Comment [Aut omated message] The = Monocytes #) system which generated this result tra nsmitted reference range : <=0.8. The reference r ryann was not used to int erpret this result as normal/abnormal . [facility] HospitalQduxqtaMOVMQQINAS2450-56-29 06:18:00 Test Item Value Reference Range Interpretation Comments Microcyte (test code = 1+ *ABN*(12/06/21 Microcyte) 1:18 AM) [facility] HospitalLjohxonYDVJYJJBJN5687-58-35 06:18:00 Test Item Value Reference Range Interpretation Comments WBC (test code = WBC) 10.8 3.7-10.4 [place] 017872-04-27 06:18:00 Test Item Value Reference Range Interpretation Comments RBC (test code = RBC) 4.83 4.20-5.40 [facility] HospitalAgiigtbYFWBTOOHOJ3027-51-26 06:18:00 Test Item Value Reference Range Interpretation Comments Hgb (test code = Hgb) 11.9 12.0-16.0 [facility] HospitalBllsoorAADNHCTPSY7018-45-19 06:18:00 Test Item Value Reference Range Interpretation Comments Hct (test code = Hct) 36.9 36.0-48.0 [facility] HospitalIrsrlijGWIUDRXSQA8390-74-52 06:18:00 Test Item Value Reference Range Interpretation Comments MCV (test code = MCV) 76.4 80.0-98.0 [place] 017872-04-27 06:18:00 Test Item Value Reference Range Interpretation Comments MCH (test code = MCH) 24.6 pg 27.0-31.0 [facility] HospitalKgvpfkuNDITPOQBEE9381-63-98 06:18:00 Test Item Value Reference Range Interpretation Comments MCHC (test code = MCHC) 32.3 32.0-36.0 [place] 017872-04-27 06:18:00 Test Item Value Reference Range Interpretation Comments RDW (test code = RDW) 14.0 11.5-14.5 [facility] HospitalQbowudsXDODTUSGNR8277-36-23 06:18:00 Test Item Value Reference Range Interpretation Comments Platelet (test code = Platelet) 240 133-450 [facility] HospitalEgpkrjyBIBFDOLVJV9666-96-44 06:18:00 Test Item Value Reference Range Interpretation Comments MPV (test code = MPV) 8.0 7.4-10.4 [place] 017872-04-27 06:18:00 Test Item Value Reference Range Interpretation Comments RBC Morph (test code = Normal (12/06/21 1:18 RBC Morph) AM) [place] [address]-04-27 06:18:00 Test Item Value Reference Range Interpretation Comments Plt Morph (test code = Normal (12/06/21 1:18 Plt Morph) AM) [place] [address]-04-27 06:18:00 Test Item Value Reference Range Interpretation Comments Segs (test code = Segs) 89.2 45.0-75.0 [place] [address]-04-27 06:18:00 Test Item Value Reference Range Interpretation Comments Lymphocytes (test code = Lymphocytes) 6.3 20.0-40.0 [place] [address]-04-27 06:18:00 Test Item Value Reference Range Interpretation Comments Monocytes (test code = Monocytes) 4.3 2.0-12.0 [place] [address]-04-27 06:18:00 Test Item Value Reference Range Interpretation Comments Basophils (test code = 0.2 See_Comment [Aut omated message] The Basophils) system which ge nerated this result tra nsmitted reference range : <=1.0. The reference r ryann was not used to int erpret this result as normal/abnormal . [place] [address]-04-27 06:18:00 Test Item Value Reference Range Interpretation Comments Neutrophils # (test code = Neutrophils 9.6 1.5-8.1 #) [place] [address]-04-27 06:18:00 Test Item Value Reference Range Interpretation Comments Lymphocytes # (test code = Lymphocytes 0.7 1.0-5.5 #) [place] [address]-04-27 06:18:00 Test Item Value Reference Range Interpretation Comments Monocytes # (test code 0.5 See_Comment [Aut omated message] The = Monocytes #) system which generated this result tra nsmitted reference range : <=0.8. The reference r ryann was not used to int erpret this result as normal/abnormal . [place] [id number] 06:18:00 Test Item Value Reference Range Interpretation Comments Microcyte (test code = 1+ *ABN*(12/06/21 Microcyte) 1:18 AM) [facility] EpuhnuuUCAWITRCDX0077-73-78 13:19:00 Test Item Value Reference Range Interpretation Comments MCV (test code = MCV) 77.4 80.0-98.0 [facility]odwulqQMHIZIJBJW3570-64-09 13:19:00 Test Item Value Reference Range Interpretation Comments MCH (test code = MCH) 25.0 pg 27.0-31.0 [facility] WestGdfwkenQLPJKKYMGR7420-49-92 13:19:00 Test Item Value Reference Range Interpretation Comments MCHC (test code = MCHC) 32.2 32.0-36.0 [facility] WzzgfmyXBHLVSVDUM6811-86-44 13:19:00 Test Item Value Reference Range Interpretation Comments RDW (test code = RDW) 14.0 11.5-14.5 [facility] AhpcgxcQEUWJHSKFM8211-54-19 13:19:00 Test Item Value Reference Range Interpretation Comments Platelet (test code = Platelet) 240 133-450 [facility] WestCgpshiyDPDNOKTGOI8511-48-05 13:19:00 Test Item Value Reference Range Interpretation Comments MPV (test code = MPV) 8.1 7.4-10.4 [facility] [employer] [id number] 13:19:00 Test Item Value Reference Range Interpretation Comments ABO/Rh (test code = ABO/Rh) O POS [facility] [employer] [id number] 13:19:00 Test Item Value Reference Range Interpretation Comments Antibody Scrn (test Negative (12/05/21 8:19 code = Antibody Scrn) AM) [facility] [employer] [id number] 13:19:00 Test Item Value Reference Range Interpretation Comments Glucose Lvl (test code = Glucose Lvl) 88 70-99 [facility] [employer] [id number] 13:19:00 Test Item Value Reference Range Interpretation Comments BUN (test code = BUN) 11 - [facility] [employer] [id number] 13:19:00 Test Item Value Reference Range Interpretation Comments Creatinine Lvl (test code = Creatinine 0.81 0.50-1.40 Lvl) [facility] [employer] PNAQI0431-09-03 13:19:00 Test Item Value Reference Range Interpretation Comments Sodium Lvl (test code = Sodium Lvl) 136 135-145 [place] [address]-04-26 13:19:00 Test Item Value Reference Range Interpretation Comments Potassium Lvl (test code = Potassium 3.5 3.5-5.1 Lvl) [address]04-26 13:19:00 Test Item Value Reference Range Interpretation Comments Chloride Lvl (test code = Chloride Lvl) 105 95-109 [address]04-26 13:19:00 Test Item Value Reference Range Interpretation Comments CO2 (test code = CO2) 28 24-32 [place] [address]-04-26 13:19:00 Test Item Value Reference Range Interpretation Comments Calcium Lvl (test code = Calcium Lvl) 8.9 8.5-10.[address]04-26 13:19:00 Test Item Value Reference Range Interpretation Comments AGAP (test code = AGAP) 6.5 10.0-20.[address]04-26 13:19:00 Test Item Value Reference Range Interpretation Comments eGFR (test code = eGFR) 100 [place] [address]-04-26 13:19:00 Test Item Value Reference Range Interpretation Comments Segs (test code = Segs) 57.3 45.0-75.[address]04-26 13:19:00 Test Item Value Reference Range Interpretation Comments Lymphocytes (test code = Lymphocytes) 31.8 20.0-40.[address]04-26 13:19:00 Test Item Value Reference Range Interpretation Comments Monocytes (test code = Monocytes) 6.9 2.0-12.[address]04-26 13:19:00 Test Item Value Reference Range Interpretation Comments Eosinophils (test code = 2.8 See_Comment [A utomated message] The Eosinophils) system which ge nerated this result tra nsmitted reference range : <=4.0. The reference r ryann was not used to int erpret this result as normal/abnormal . [place] [address]-04-26 13:19:00 Test Item Value Reference Range Interpretation Comments Basophils (test code = 1.2 See_Comment [Aut omated message] The Basophils) system which ge nerated this result tra nsmitted reference range : <=1.0. The reference r ryann was not used to int erpret this result as normal/abnormal . [place] [address]-04-26 13:19:00 Test Item Value Reference Range Interpretation Comments Neutrophils # (test code = Neutrophils 2.7 1.5-8.1 #) [place] 017872-04-26 13:19:00 Test Item Value Reference Range Interpretation Comments Lymphocytes # (test code = Lymphocytes 1.5 1.0-5.5 #) [place] 017872-04-26 13:19:00 Test Item Value Reference Range Interpretation Comments Monocytes # (test code 0.3 See_Comment [Aut omated message] The = Monocytes #) system which generated this result tra nsmitted reference range : <=0.8. The reference r ryann was not used to int erpret this result as normal/abnormal . [place] [address]-04-26 13:19:00 Test Item Value Reference Range Interpretation Comments Eosinophils # (test code 0.1 See_Comment [A utomated message] The = Eosinophils #) system whic h generated this result tra nsmitted reference range : <=0.5. The reference r ryann was not used to int erpret this result as normal/abnormal . [place] [address]-04-26 13:19:00 Test Item Value Reference Range Interpretation Comments Basophils # (test code 0.1 See_Comment [Aut omated message] The = Basophils #) system which generated this result tra nsmitted reference range : <=0.2. The reference r ryann was not used to int erpret this result as normal/abnormal . [place] 017872-04-26 13:19:00 Test Item Value Reference Range Interpretation Comments Microcyte (test code = 1+ *ABN*(12/05/21 Microcyte) 8:19 AM) [place] [address]-04-26 13:19:00 Test Item Value Reference Range Interpretation Comments WBC (test code = WBC) 4.7 3.7-10.4 [place] 017872-04-26 13:19:00 Test Item Value Reference Range Interpretation Comments RBC (test code = RBC) 4.99 4.20-5.40 [place] 017872-04-26 13:19:00 Test Item Value Reference Range Interpretation Comments Hgb (test code = Hgb) 12.5 12.0-16.0 [facility] WestFdftudlOBLDLLNHPV2428-07-00 13:19:00 Test Item Value Reference Range Interpretation Comments Hct (test code = Hct) 38.6 36.0-48.0 [facility]YFAUUWTCT2679-51-72 13:19:00 Test Item Value Reference Range Interpretation Comments MCV (test code = MCV) 77.4 80.0-98.0 [facility] WestBprrbveKKCWPPEYYI9104-06-75 13:19:00 Test Item Value Reference Range Interpretation Comments MCH (test code = MCH) 25.0 pg 27.0-31.0 [facility] WestJdyxbehOCHLUPQWLL9903-18-72 13:19:00 Test Item Value Reference Range Interpretation Comments MCHC (test code = MCHC) 32.2 32.0-36.0 [facility] WestDurdlnzDIXZMHCXZQ5195-48-23 13:19:00 Test Item Value Reference Range Interpretation Comments RDW (test code = RDW) 14.0 11.5-14.5 [facility] WestJspqbdvEBZOHBYBWC9815-89-26 13:19:00 Test Item Value Reference Range Interpretation Comments Platelet (test code = Platelet) 240 133-450 [facility] WestNhgwkanFWCSZQVKDU1840-47-18 13:19:00 Test Item Value Reference Range Interpretation Comments MPV (test code = MPV) 8.1 7.4-10.4 [facility] [employer] WOISZSP5155-46-17 13:19:00 Test Item Value Reference Range Interpretation Comments ABO/Rh (test code = ABO/Rh) O POS [facility] [employer] [id number] 13:19:00 Test Item Value Reference Range Interpretation Comments Antibody Scrn (test Negative (12/05/21 8:19 code = Antibody Scrn) AM) [facility] [employer] [id number] 13:19:00 Test Item Value Reference Range Interpretation Comments Glucose Lvl (test code = Glucose Lvl) 88 70-99 [facility] [employer]2022-04-26 13:19:00 Test Item Value Reference Range Interpretation Comments BUN (test code = BUN) 11 - [facility] [employer] [id number] 13:19:00 Test Item Value Reference Range Interpretation Comments Creatinine Lvl (test code = Creatinine 0.81 0.50-1.40 Lvl) [place] 629302-04-26 13:19:00 Test Item Value Reference Range Interpretation Comments Sodium Lvl (test code = Sodium Lvl) 136 135-145 [place] 629302-04-26 13:19:00 Test Item Value Reference Range Interpretation Comments Potassium Lvl (test code = Potassium 3.5 3.5-5.1 Lvl) [place] 629302-04-26 13:19:00 Test Item Value Reference Range Interpretation Comments Chloride Lvl (test code = Chloride Lvl) 105 95-109 [place] [address]-04-26 13:19:00 Test Item Value Reference Range Interpretation Comments CO2 (test code = CO2) 28 24-32 [place] 629302-04-26 13:19:00 Test Item Value Reference Range Interpretation Comments Calcium Lvl (test code = Calcium Lvl) 8.9 8.5-10.5 [place] 629302-04-26 13:19:00 Test Item Value Reference Range Interpretation Comments AGAP (test code = AGAP) 6.5 10.0-20.0 [place] 629302-04-26 13:19:00 Test Item Value Reference Range Interpretation Comments eGFR (test code = eGFR) 100 [place] [address]-04-26 13:19:00 Test Item Value Reference Range Interpretation Comments Segs (test code = Segs) 57.3 45.0-75.0 [place] [address]-04-26 13:19:00 Test Item Value Reference Range Interpretation Comments Lymphocytes (test code = Lymphocytes) 31.8 20.0-40.0 [place] [address]-04-26 13:19:00 Test Item Value Reference Range Interpretation Comments Monocytes (test code = Monocytes) 6.9 2.0-12.0 [place] [address]-04-26 13:19:00 Test Item Value Reference Range Interpretation Comments Eosinophils (test code = 2.8 See_Comment [A utomated message] The Eosinophils) system which ge nerated this result tra nsmitted reference range : <=4.0. The reference r ryann was not used to int erpret this result as normal/abnormal . [place] 017872-04-26 13:19:00 Test Item Value Reference Range Interpretation Comments Basophils (test code = 1.2 See_Comment [Aut omated message] The Basophils) system which ge nerated this result tra nsmitted reference range : <=1.0. The reference r ryann was not used to int erpret this result as normal/abnormal . [facility]IB[facility]AK[facility]OV2632[facility]56-[facility] 13:19:00 Test Item Value Reference Range Interpretation Comments Neutrophils # (test code = Neutrophils 2.7 1.5-8.1 #) [place] 017872-04-26 13:19:00 Test Item Value Reference Range Interpretation Comments Lymphocytes # (test code = Lymphocytes 1.5 1.0-5.5 #) [place] 017872-04-26 13:19:00 Test Item Value Reference Range Interpretation Comments Monocytes # (test code 0.3 See_Comment [Aut omated message] The = Monocytes #) system which generated this result tra nsmitted reference range : <=0.8. The reference r ryann was not used to int erpret this result as normal/abnormal . [facility]DajezxpHYFXWIFFXR7934-36-99 13:19:00 Test Item Value Reference Range Interpretation Comments Eosinophils # (test code 0.1 See_Comment [A utomated message] The = Eosinophils #) system whic h generated this result tra nsmitted reference range : <=0.5. The reference r ryann was not used to int erpret this result as normal/abnormal . [place] 017872-04-26 13:19:00 Test Item Value Reference Range Interpretation Comments Basophils # (test code 0.1 See_Comment [Aut omated message] The = Basophils #) system which generated this result tra nsmitted reference range : <=0.2. The reference r ryann was not used to int erpret this result as normal/abnormal . [facility] HospitalTtgabjiUHHMLBUKKA5936-27-11 13:19:00 Test Item Value Reference Range Interpretation Comments Microcyte (test code = 1+ *ABN*(12/05/21 Microcyte) 8:19 AM) [place] 017872-04-26 13:19:00 Test Item Value Reference Range Interpretation Comments WBC (test code = WBC) 4.7 3.7-10.4 [place] 017872-04-26 13:19:00 Test Item Value Reference Range Interpretation Comments RBC (test code = RBC) 4.99 4.20-5.40 [facility]EogyxvbWYEIUIUTLH7226-98-79 13:19:00 Test Item Value Reference Range Interpretation Comments Hgb (test code = Hgb) 12.5 12.0-16.0 [facility] HospitalRqfegaiMEKWJLQAAF4846-10-35 13:19:00 Test Item Value Reference Range Interpretation Comments Hct (test code = Hct) 38.6 36.0-48.0 [facility], SPINE, CERVICAL, WO FLPBRKXI2860-09-57 00:15:00Unlisted Reason for Exam - Click Yes and Enter Reason Below->No [facility] 1995 Sex: [...] Verified Date/Time: 11/06/2021 00:15:51 CT, BRAIN, WITHOUT [id number] 00:13:00Unlisted Reason for Exam - Click Yes and Enter Reason Below->No [facility] 1995 Sex: FFINAL [...] MDReport Verified Date/Time: 11/06/2021 00:13:35 hCG, quantitative, ggcvasvwe7635-25-35 23:31:28 Test Item Value Reference Range Interpretation Comments hCG Quant (test code <1 See_Comment [Autom ated = 11520-8) message] The system which generated this result [...] 10,000-100,000 6-8 Weeks 15,000-200,000 2-3 Months 10,000-100,000 [employer] ID - DB Lab Interpretation Normal (test code = 48851-1) [facility], quantitative, dnoqsmrma6487-89-88 23:31:28 Test Item Value Reference Range Interpretation Comments hCG Quant (test code <1 See_Comment [Autom ated = 86556-9) message] The system which generated this result [...] 10,000-100,000 6-8 Weeks 15,000-200,000 2-3 Months 10,000-100,000 [employer] ID - DB Lab Interpretation Normal (test code = 17529-7) [facility], quantitative, hpjmiazjx4407-13-03 23:31:28 Test Item Value Reference Range Interpretation Comments hCG Quant (test code <1 See_Comment [Autom ated = 11606-5) message] The system which generated this result [...] 10,000-100,000 6-8 Weeks 15,000-200,000 2-3 Months 10,000-100,000 [employer] ID - DB Lab Interpretation Normal (test code = 77397-0) [facility], [id number] 23:31:28 Test Item Value Reference Range Interpretation Comments GONADOTROPIN, CHORIONIC (HCG) QUANT < mIU/mL 0-10 (BEAKER) (test code = 649) Non- Females: <10 mIU/mL Females: Gestation Age Reference Range(mIU/mL) 0.2-1 Week 5-50 1-2 Weeks 50-500 2-3 Weeks 100-5,000 3-4 Weeks 500-10,000 4-5 Weeks 1,000-50,000 5-6 Weeks 10,000-100,000 6-8 Weeks 15,000- 200,000 2-3 Months 10,000-100,000 [employer] Reg[employer] ID - DBHigh Sens Trop I ([facility]/[place] Only)2021-11-05 23:11:39 Test Item Value Reference Range Interpretation Comments Troponin I HS (test <4 See_Comment [WAVE [employer])a aleks code = 01353-3) message] The system which generated this result transmitted reference range : <=17 pg/ml. The reference range was not used to interpret this result as normal/abnormal . VERITO (test code = [employer] Registrar ID - VERITO) DBThe DOCK WORKER STAT High Sensitivity Troponin-I results should be used in conjunction with other diagnostic information such as ECG, clinical observations and information, and patient symptoms to aid in the diagnosis of [place]. Lab Interpretation Normal (test code = 96584-0) [facility] [facility]2021-11-05 23:11:39 Test Item Value Reference Range Interpretation Comments Troponin I HS (test <4 See_Comment [my3Dreams code = 22825-5) message] The system which generated this result transmitted reference range : <=17 pg/ml. The reference range was not used to interpret this result as normal/abnormal . VERITO (test code = [employer] Registrar ID - VERITO) DBThe D[employer] WORK[employer] STAT High Sensitivity Troponin-I results should be used in conjunction with other diagnostic information such as ECG, clinical observations and information, and patient symptoms to aid in the diagnosis of [place]. Lab Interpretation Normal (test code = 18388-2) [facility] [facility]2021-11-05 23:11:39 Test Item Value Reference Range Interpretation Comments Troponin I HS (test <4 See_Comment [Automa aleks code = 79834-5) message] The system which generated this result transmitted reference range : <=17 pg/ml. The reference range was not used to interpret this result as normal/abnormal . VERITO (test code = [employer] Registrar ID - VERITO) DBThe DOCK WORKER STAT High Sensitivity Troponin-I results should be used in conjunction with other diagnostic information such as ECG, clinical observations and information, and patient symptoms to aid in the diagnosis of [place]. Lab Interpretation Normal (test code = 73376-0) [facility] TROPONIN [id number] 23:11:39 Test Item Value Reference Range Interpretation Comments HIGH SENSITIVITY < pg/ml See_Comment [Automated message] TROPONIN I (test code = The system which 4064599) generated this result transmitted ref erence range: <=17. Th e reference range was not used to interpr et this result as normal/abnormal . [employer] Registrar ID - DBThe DOCK WORKER STAT High Sensitivity Troponin-I results should be used in conjunctionwith other diagnostic information such as ECG, clinical observations and information, and patient symptoms to aid in the diagnosis of [place].Comprehensive metabolic kyqsl2987-68-35 23:05:38 Test Item Value Reference Range Interpretation Comments Protein, Total (test 7.7 See_Comment [Autom ated code = 2885-2) message] The system which generated this result transmit aleks reference range : 6.0 - 8.3 gm/dL . The reference range was not u sed to interpret th is result as normal/abnormal . Albumin (test code = 4.2 g/dL 3.5-5.0 43983-6) Alkaline Phosphatase 80 U/L 40-150 (test code = 6768-6) Total Bilirubin (test 0.4 mg/dL 0.2-1.2 code = 1974-2) Sodium (test code = 138 meq/L 855-336 0273-2) Potassium (test code 3.4 meq/L 3.5-5.1 L = 2823-3) Chloride (test code = 102 meq/L 98-107 2074-0) CO2 (test code = 26 meq/L 2028-04) BUN (test code = 11 mg/dL 03-01 3094-0) Creatinine (test code 0.78 mg/dL 0.57-1.25 = 2160-0) Glucose (test code = 100 mg/dL 70-105 2345-7) Calcium (test code = 9.0 mg/dL 8.4-10.2 14497-9) AST (test code = 22 U/L 5-34 1920-8) ALT (test code = 25 U/L 6-55 1742-6) EGFR (test code = 107 mL/min/1.[place] [address]-2) NOT ACCURATE CREATININE CLEARANCE IN PREDICTING GLOMERULAR FILTRATION RATE . ESTIMATED GFR I S NOT APPLICABLE FOR DIALYSIS PATIEN VERITO (test code = VERITO) [employer] ID - DB Lab Interpretation Abnormal (test code = 90461-9) [facility] ksnmc6822-08-70 23:05:38 Test Item Value Reference Range Interpretation Comments Protein, Total (test 7.7 See_Comment [Autom ated code = 2885-2) message] The system which generated this result transmit aleks reference range : 6.0 - 8.3 gm/dL . The reference range was not u sed to interpret th is result as normal/abnormal . Albumin (test code = 4.2 g/dL 3.5-5.0 08572-8) Alkaline Phosphatase 80 U/L 40-150 (test code = 6768-6) Total Bilirubin (test 0.4 mg/dL 0.2-1.2 code = 1975-2) Sodium (test code = 138 meq/L 467-839 4587-2) Potassium (test code 3.4 meq/L 3.5-5.1 L = 2823-3) Chloride (test code = 102 meq/L 98-107 2074-0) CO2 (test code = 26 meq/L 2028-04) BUN (test code = 11 mg/dL 03-01 3094-0) Creatinine (test code 0.78 mg/dL 0.57-1.25 = 2160-0) Glucose (test code = 100 mg/dL 70-105 2345-7) Calcium (test code = 9.0 mg/dL 8.4-10.2 88046-0) AST (test code = 22 U/L 1919-8) ALT (test code = 25 U/L 2-6) EGFR (test code = 107 mL/min/1.[place] [address]-9) NOT ACCURATE CREATININE CLEARANCE IN PREDICTING GLOMERULAR FILTRATION RATE . ESTIMATED GFR I S NOT APPLICABLE FOR DIALYSIS PATIEN VERITO (test code = VERITO) [employer] ID - DB Lab Interpretation Abnormal (test code = 22890-2) [facility] [id number] 23:05:38 Test Item Value Reference Range Interpretation Comments Protein, Total (test 7.7 See_Comment [Autom ated code = 2885-2) message] The system which generated this result transmit aleks reference range : 6.0 - 8.3 gm/dL . The reference range was not u sed to interpret th is result as normal/abnormal . Albumin (test code = 4.2 g/dL 3.5-5.0 93312-7) Alkaline Phosphatase 80 U/L 40-150 (test code = 6768-6) Total Bilirubin (test 0.4 mg/dL 0.2-1.2 code = 1974-2) Sodium (test code = 138 meq/L 769-862 6512-2) Potassium (test code 3.4 meq/L 3.5-5.1 L = 2823-3) Chloride (test code = 102 meq/L 98-107 5-0) CO2 (test code = 26 meq/L 22-29 2027-9) BUN (test code = 11 mg/dL 7- 3094-0) Creatinine (test code 0.78 mg/dL 0.57-1.25 = 2160-0) Glucose (test code = 100 mg/dL 70-105 2345-7) Calcium (test code = 9.0 mg/dL 8.4-10.2 91138-9) AST (test code = 22 U/L 1919-8) ALT (test code = 25 U/L 2-6) EGFR (test code = 107 mL/min/1.[place] [address]-9) NOT ACCURATE CREATININE CLEARANCE IN PREDICTING GLOMERULAR FILTRATION RATE . ESTIMATED GFR I S NOT APPLICABLE FOR DIALYSIS PATIEN TS. VERITO (test code = VERITO) [employer] ID - DB Lab Interpretation Abnormal (test code = 35217-9) [facility] [id number] 23:05:38 Test Item Value Reference Range Interpretation [...] S NOT APPLICABLE FOR DIALYSIS PATIEN TS. [employer] Registrar ID - DBLactic acid, ezphon2855-46-18 22:55:53 Test Item Value Reference Range Interpretation Comments Lactate, Venous (test 0.91 mmol/L 0.50-2.20 Specim en code = 2872) slightly hemolyzed VERITO (test code = VERITO) [employer] Regist[employer] ID - DBOperator ID - DB Lab Interpretation Normal (test code = 19557-9) [facility] HospitalL[facility] acid, [id number] 22:55:53 Test Item Value Reference Range Interpretation Comments Lactate, Venous (test 0.91 mmol/L 0.50-2.20 Specim en code = 2872) slightly hemolyzed VERITO (test code = VERITO) [employer]ist[employer] ID - DBOperator ID - DB Lab Interpretation Normal (test code = 93588-2) [facility] HospitalL[facility] acid, [id number] 22:55:53 Test Item Value Reference Range Interpretation Comments Lactate, Venous (test 0.91 mmol/L 0.50-2.20 Specim en code = 2872) slightly hemolyzed VERITO (test code = VERITO) [employer]ist[employer] ID - DBOperator ID - DB Lab Interpretation Normal (test code = 26577-9) [facility], [id number] 22:55:53 Test Item Value Reference Range Interpretation Comments LACTATE BLOOD VENOUS 0.91 mmol/L 0.50-2.20 Specime n slightly (2) (BEAKER) (test hemolyzed code = 2872) [employer] Regist[employer] ID - DBOperator ID - DBCBC with platelet count + automated diff 2021-11-05 22:47:54 Test Item Value Reference Range Interpretation Comments WBC (test code = 6690-2) 6.8 See_Comment [A utomated message] The system [employer] generated this result transmitted ref erence range: 3.5 - 10 .5 K/L. The refe rence range was not u sed to interpret this result as normal/abnor mal. RBC (test code = 789-8) 4.86 See_Comment [Au tomated message] The system [employer] generated this result transmitted ref erence range: 3.93 - 5 .22 M/L. The refe rence range was not u sed to interpret this result as normal/abnor mal. MCHC (test code = 786-4) 30.1 See_Comment L [A utomated message] The system [employer] generated this result transmitted ref erence range: [...] See_Comment [Aut omated message] 777-3) The system [employer] generated this result transmitted ref erence range: 150 - 45 0 K/CU MM. The referen ce range was not u sed to interpret this result as normal/abnor mal. MPV (test code = 9.4 fL 9.4-12.3 51368-2) nRBC (test code = 413) 0 See_Comment [Aut omated message] The system [employer] generated this result transmitted ref erence range: [...] See_Comment [Aut omated message] 670) The system [employer] generated this result transmitted ref erence range: 1.56 - 6 .13 K/L. The refe rence range was not u sed to interpret this result as normal/abnor mal. # Lymphs (test code = 1.85 See_Comment [Auto mated message] 414) The system [employer] generated this result transmitted ref erence range: 1.18 - 3 .74 K/L. The refe rence range was not u sed to interpret this result as normal/abnor mal. # Monos (test code = 0.74 See_Comment H [Autom ated message] 415) The system [employer] generated this result transmitted ref erence range: 0.24 - 0 .36 K/L. The refe rence range was not u sed to interpret this result as normal/abnor mal. # Eos (test code = 416) 0.08 See_Comment [Au tomated message] The system [employer] generated this result transmitted ref erence range: 0.04 - 0 .36 K/L. The refe rence range was not u sed to interpret this result as normal/abnor mal. # Baso (test code = 417) 0.04 See_Comment [A utomated message] The system [employer] generated this result transmitted ref erence range: 0.01 - 0 .08 K/L. The refe rence range was not u sed to interpret this result as normal/abnor mal. Immature 0 % 0-1 Granulocytes-Relative (test code = 2801) Lab Interpretation (test Abnormal code = 55762-3) [facility] with platelet count + automated [id number] 22:47:54 Test Item Value Reference Range Interpretation Comments WBC (test code = 6690-2) 6.8 See_Comment [A utomated message] The system [employer] generated this result transmitted ref erence range: 3.5 - 10 .5 K/L. The refe rence range was not u sed to interpret this result as normal/abnor mal. RBC (test code = 789-8) 4.86 See_Comment [Au tomated message] The system [employer] generated this result transmitted ref erence range: 3.93 - 5 .22 M/L. The refe rence range was not u sed to interpret this result as normal/abnor mal. MCHC (test code = 786-4) 30.1 See_Comment L [A utomated message] The system [employer] generated this result transmitted ref erence range: [...] See_Comment [Aut omated message] 777-3) The system [employer] generated this result transmitted ref erence range: 150 - 45 0 K/CU MM. The referen ce range was not u sed to interpret this result as normal/abnor mal. MPV (test code = 9.4 fL 9.4-12.3 27755-0) nRBC (test code = 413) 0 See_Comment [Aut omated message] The system [employer] generated this result transmitted ref erence range: [...] See_Comment [Aut omated message] 670) The system [employer] generated this result transmitted ref erence range: 1.56 - 6 .13 K/L. The refe rence range was not u sed to interpret this result as normal/abnor mal. # Lymphs (test code = 1.85 See_Comment [Auto mated message] 414) The system [employer] generated this result transmitted ref erence range: 1.18 - 3 .74 K/L. The refe rence range was not u sed to interpret this result as normal/abnor mal. # Monos (test code = 0.74 See_Comment H [Autom ated message] 415) The system [employer] generated this result transmitted ref erence range: 0.24 - 0 .36 K/L. The refe rence range was not u sed to interpret this result as normal/abnor mal. # Eos (test code = 416) 0.08 See_Comment [Au tomated message] The system [employer] generated this result transmitted ref erence range: 0.04 - 0 .36 K/L. The refe rence range was not u sed to interpret this result as normal/abnor mal. # Baso (test code = 417) 0.04 See_Comment [A utomated message] The system [employer] generated this result transmitted ref erence range: 0.01 - 0 .08 K/L. The refe rence range was not u sed to interpret this result as normal/abnor mal. Immature 0 % 0-1 Granulocytes-Relative (test code = 2801) Lab Interpretation (test Abnormal code = 66072-5) [facility] with platelet count + automated [id number] 22:47:54 Test Item Value Reference Range Interpretation Comments WBC (test code = 6690-2) 6.8 See_Comment [A utomated message] The system [employer] generated this result transmitted ref erence range: 3.5 - 10 .5 K/L. The refe rence range was not u sed to interpret this result as normal/abnor mal. RBC (test code = 789-8) 4.86 See_Comment [Au tomated message] The system [employer] generated this result transmitted ref erence range: 3.93 - 5 .22 M/L. The refe rence range was not u sed to interpret this result as normal/abnor mal. MCHC (test code = 786-4) 30.1 See_Comment L [A utomated message] The system [employer] generated this result transmitted ref erence range: [...] code = 256 See_Comment [Aut omated message] 467-3) The system [employer] generated this result transmitted ref erence range: 150 - 45 0 K/CU MM. The referen ce range was not u sed to interpret this result as normal/abnor mal. MPV (test code = 9.4 fL 9.4-12.3 44446-7) nRBC (test code = 413) 0 See_Comment [Aut omated message] The system [employer] generated this result transmitted ref erence range: [...] See_Comment [Aut omated message] 670) The system [employer] generated this result transmitted ref erence range: 1.56 - 6 .13 K/L. The refe rence range was not u sed to interpret this result as normal/abnor mal. # Lymphs (test code = 1.85 See_Comment [Auto mated message] 414) The system [employer] generated this result transmitted ref erence range: 1.18 - 3 .74 K/L. The refe rence range was not u sed to interpret this result as normal/abnor mal. # Monos (test code = 0.74 See_Comment H [Autom ated message] 415) The system [employer] generated this result transmitted ref erence range: 0.24 - 0 .36 K/L. The refe rence range was not u sed to interpret this result as normal/abnor mal. # Eos (test code = 416) 0.08 See_Comment [Au tomated message] The system [employer] generated this result transmitted ref erence range: 0.04 - 0 .36 K/L. The refe rence range was not u sed to interpret this result as normal/abnor mal. # Baso (test code = 417) 0.04 See_Comment [A utomated message] The system [employer] generated this result transmitted ref erence range: 0.01 - 0 .08 K/L. The refe rence range was not u sed to interpret this result as normal/abnor mal. Immature 0 % 0-1 Granulocytes-Relative (test code = 2801) Lab Interpretation (test Abnormal code = 01139-0) [facility] W/PLT COUNT & AUTO [id number] 22:47:54 Test Item Value Reference Range Interpretation [...] = No growth in 5 days 6463-4) [facility]21-09-09 07:00:34 Test Item Value Reference Range Interpretation Comments Result (test code = No growth in 5 days 6463-4) [facility] Culture - Routine (Left Venipuncture)2021-09-09 07:00:34 Test Item Value Reference Range Interpretation Comments Result (test code = No growth in 5 days 6463-4) [facility] [id number] 07:00:34 Test Item Value Reference Range Interpretation Comments CULTURE (BEAKER) (test No growth in 5 days code = 1095) BLOOD [id number] 07:00:34 Test Item Value Reference Range Interpretation Comments CULTURE (BEAKER) (test No growth in 5 days code = 1095) Anti-Nuclear Antibody (ROSI)2021-09-05 13:55:57 Test Item Value Reference Range Interpretation Comments ROSI (test code = 49061-1) Negative Negative VERITO (test code = VERITO) Test performed by IFA method.Test performed by IFA method. Lab Interpretation (test Normal code = 91394-8) [facility] 13:55:57 Test Item Value Reference Range Interpretation Comments ROSI (test code = 20945-0) Negative Negative VERITO (test code = VERITO) Test performed by IFA method.Test performed by IFA method. Lab Interpretation (test Normal code = 38915-8) [facility]2021-09-05 13:55:57 Test Item Value Reference Range Interpretation Comments ROSI (test code = 87516-5) Negative Negative VERITO (test code = VERITO) Test performed by IFA method.Test performed by IFA method. Lab Interpretation (test Normal code = 66621-2) [facility]ROS[facility]2021-09-05 13:55:57 Test Item Value Reference Range Interpretation Comments ANTI-NUCLEAR ANTIBODY (ROSI) (BEAKER) Negative Negative (test code = 418) Test performed by IFA method.Test performed by IFA method.CBC W/PLT COUNT & AUTO [id number] 06:10:59 Test Item Value Reference Range Interpretation [...] (BEAKER) (test code = 2801) Basic Metabolic [id number] 06:02:03 Test Item Value Reference Range Interpretation Comments Sodium (test code = 139 meq/L 213-331 2574-2) Potassium (test code 3.6 meq/L 3.6-5.5 = 2823-3) Chloride (test code = 107 meq/L 98-106 H 5-0) CO2 (test code = 23 meq/L -2028-04) BUN (test code = 4 mg/dL 10-26 L 3094-0) Creatinine (test code 0.64 mg/dL 0.50-1.20 = 2160-0) Glucose (test code = 110 mg/dL 70-110 2345-7) Calcium (test code = 8.7 mg/dL 8.5-10.5 52087-5) EGFR (test code = 134 mL/min/1.73 [place] [address]-5) m NOT ACCURATE CREATININE CLEARANCE IN PREDICTING GLOMERULAR FILTRATION RATE . ESTIMATED GFR I S NOT APPLICABLE FOR DIALYSIS PATIENTS. VERITO (test code = VERITO) [employer] Registrar ID - LITOOperator ID - LITOOperator ID - LITOOperator ID - LITOOperator ID - LITOOperator ID - LITOOperator ID - LITOOperator ID - LITOOperator ID - LITOOperator ID - XIMENA Lab Interpretation Abnormal (test code = 61508-2) [facility] [id number] 06:02:03 Test Item Value Reference Range Interpretation Comments Sodium (test code = 139 meq/L 152-706 0218-2) Potassium (test code 3.6 meq/L 3.6-5.5 = 2823-3) Chloride (test code = 107 meq/L 98-106 H 2075-0) CO2 (test code = 23 meq/L -29 2028-04) BUN (test code = 4 mg/dL 10-26 L 3094-0) Creatinine (test code 0.64 mg/dL 0.50-1.20 = 2160-0) Glucose (test code = 110 mg/dL 70-110 2345-7) Calcium (test code = 8.7 mg/dL 8.5-10.5 33082-3) EGFR (test code = 134 mL/min/1.73 [place] [address]-0) m NOT ACCURATE CREATININE CLEARANCE IN PREDICTING GLOMERULAR FILTRATION RATE . ESTIMATED GFR I S NOT APPLICABLE FOR DIALYSIS PATIENTS. VERITO (test code = VERITO) [employer] Registrar ID - LITOOperator ID - LITOOperator ID - LITOOperator ID - LITOOperator ID - LITOOperator ID - LITOOperator ID - LITOOperator ID - LITOOperator ID - LITOOperator ID - XIMENA Lab Interpretation Abnormal (test code = 96146-4) [facility] Metabolic [id number] 06:02:03 Test Item Value Reference Range Interpretation Comments Sodium (test code = 139 meq/L 060-858 7902-2) Potassium (test code 3.6 meq/L 3.6-5.5 = 2823-3) Chloride (test code = 107 meq/L 98-106 H 2075-0) CO2 (test code = 23 meq/L 20-29 2028-9) BUN (test code = 4 mg/dL 10-26 L 3094-0) Creatinine (test code 0.64 mg/dL 0.50-1.20 = 2160-0) Glucose (test code = 110 mg/dL 70-110 2345-7) Calcium (test code = 8.7 mg/dL 8.5-10.5 61150-1) EGFR (test code = 134 mL/min/1.[place] [address]-7) m NOT ACCURATE CREATININE CLEARANCE IN PREDICTING GLOMERULAR FILTRATION RATE . ESTIMATED GFR I S NOT APPLICABLE FOR DIALYSIS PATIENTS. VERITO (test code = VERITO) [employer] Registrar ID - LITOOperator ID - LITOOperator ID - LITOOperator ID - LITOOperator ID - LITOOperator ID - LITOOperator ID - LITOOperator ID - LITOOperator ID - LITOOperator ID - XIMENA Lab Interpretation Abnormal (test code = 26360-7) [facility] METABOLIC [id number] 06:02:03 Test Item Value Reference Range Interpretation [...] S NOT APPLICABLE FOR DIALYSIS PATIEN TS. [employer] Registrar ID - LITOOperator ID - LITOOperator ID - LITOOperator ID - LITOOperator ID - LITOOperator ID - LITOOperator ID - LITOOperator ID - LITOOperator ID - LITOOperator ID - [id number] 06:00:02 Test Item Value Reference Range Interpretation Comments Magnesium (test code = 1.9 mg/dL 1.5-3.0 99755-6) VERITO (test code = VERITO) [employer] Registrar ID - LITOOperator ID - LITOOperator ID - LITOOperator ID - XIMENA Lab Interpretation (test Normal code = 60556-8) [facility] 06:00[facility]02 Test Item Value Reference Range Interpretation Comments Magnesium (test code = 1.9 mg/dL 1.5-3.0 43038-6) VERITO (test code = VERITO) [employer] Regist[employer] ID - LITOOperator ID - LITOOperator ID - LITOOperator ID - XIMENA Lab Interpretation (test Normal code = 80693-6) [facility] Test Item Value Reference Range Interpretation Comments Magnesium (test code = 1.9 mg/dL 1.5-3.0 03031-8) VERITO (test code = VERITO) [employer] Registrar ID - LITOOperator ID - LITOOperator ID - LITOOperator ID - XIMENA Lab Interpretation (test Normal code = 70075-0) [facility] 06:00:02 Test Item Value Reference Range Interpretation Comments MAGNESIUM (BEAKER) (test code = 1.9 mg/dL 1.5-3.0 627) [employer] Registrar ID - LITOOperator ID - LITOOperator ID - LITOOperator ID - LITOC- Reactive [id number] 05:58:11 Test Item Value Reference Range Interpretation Comments CRP (test code = 676) 5.49 mg/dL 0.00-0.50 H VERITO (test code = VERITO) [employer] ID - [email or web address] Lab Interpretation (test Abnormal code = 26425-1) [facility] [id number] 05:58:11 Test Item Value Reference Range Interpretation Comments CRP (test code = 676) 5.49 mg/dL 0.00-0.50 H VERITO (test code = VERITO) [employer] ID - XIMENA Lab Interpretation (test Abnormal code = 61203-1) [facility] [id number] 05:58:11 Test Item Value Reference Range Interpretation Comments CRP (test code = 676) 5.49 mg/dL 0.00-0.50 H VERITO (test code = VERITO) [employer]ist[employer] ID - XIMENA Lab Interpretation (test Abnormal code = 96593-5) [facility]IVE [id number] 05:58:11 Test Item Value Reference Range Interpretation Comments C-REACTIVE PROTEIN (BEAKER) (test 5.49 mg/dL 0.00-0.50 H code = 676) [employer] Registrar ID - LITOCT, CTANGIO [id number] 02:24:00Unlisted Reason for Exam - Click Yes and Enter Reason Below->No [facility] 1995 Sex: FFINAL REPORT EXAM: CT, CTANGIO BRAIN INDICATION: Headache, chronic, with new features TECHNIQUE: Helical CT of the head without IV contrast. Postcontrast CTA of the head with IV contrast. Multiplanar reconstructed images. 3D reconstructions with MIP images were performed. This exam was performed according to our departmental dose-optimization program, which includes auto mated exposure control, adjustment of the mA and/or kV according to patient size and/or use of iterative reconstruction technique. COMPARISON: 09/01/2021 FINDINGS:CT HEAD: Parenchyma: No evidence of infarction. No hemorrhage. No mass or mass effect. Extra-axial Collection: None Brain Volume: Expected for age Ventricular System: Normal Dural Venous Sinuses: Normal Osseous Structures: Normal Paranasal Sinuses: Predominantly clear Tympanomastoid Cavities: Normal Other: None CTA HEAD: Anterior Circulation:Right intracranial internal carotid artery (ICA): NormalRight anterior cerebral artery (CURTIS): NormalRight middle cerebral artery (MCA): Normal Left intracranial internal carotid artery (ICA): NormalLeft anterior cerebral artery (CURTIS): NormalLeft middle cerebral artery (MCA): Normal Anterior communicating artery (AComm): PresentPosterior communicating arteries (PComm): Not well-visualized bilaterally. Posterior Circulation:Right posterior cerebral artery (CERTIFIED TECHNICIAN): NormalLeft posterior cerebral artery (CERTIFIED TECHNICIAN): Normal Right vertebral artery (VA): NormalLeft vertebral artery (VA): NormalBasilar artery (BA): Normal Other: No aneurysm Dural Venous Sinuses: Normal IMPRESSION: 1. No acute intracranial abnormality.2. No hemodynamically significant stenosis or aneurysm. Signed: Nita Madsen MDReport Verified Da te/Time: 09/04/2021 02:24:17 2D Echo W/Doppler(CW/PW/Color)2021-09-03 16:06:54Ejection FractionSLEH [facility]CHO [facility] W/Doppler(CW/PW/Color)2021-09-03 16:06:54Ejection FractionSLEH ECHO [facility]ARTLAB [facility] Echo W/Doppler(CW/PW/Color) 2021-09-03 16:06:54Ejection FractionSLE ECHO [facility] W/PLT COUNT & AUTO [id number] 06:12:06 Test Item Value Reference Range Interpretation [...] (BEAKER) (test code = 2801) BASIC METABOLIC [id number] 06:09:34 Test Item Value Reference Range Interpretation [...] S NOT APPLICABLE FOR DIALYSIS PATIEN TS. [employer] Registrar ID - LITOOperator ID - LITOOperator ID - LITOOperator ID - LITOOperator ID - LITOOperator ID - LITOOperator ID - LITOOperator ID - LITOOperator ID - LITOOperator ID - [id number] 06:04:12 Test Item Value Reference Range Interpretation Comments MAGNESIUM (BEAKER) (test code = 1.8 mg/dL 1.5-3.0 627) [employer] Regist[employer] ID - LITOOperator ID - LITOOperator ID - LITOOperator ID - LITOTroponin [id number] 07:27:11 Test Item Value Reference Range Interpretation Comments Troponin I (test code = <0.03 0.00-0.15 30402-1) VERITO (test code = VERITO) Troponin I [...] failure, acidosis, acute neurological disease, and persistent tachyarrhythmia.[facility] [employer] Lab Interpretation (test Normal code = 20879-0) [facility] [id number] 07:27:11 Test Item Value Reference Range Interpretation Comments Troponin I (test code = <0.03 0.00-0.15 17166-3) VERITO (test code = VERITO) Troponin I [...] failure, acidosis, acute neurological disease, and persistent tachyarrhythmia.[facility] [employer] - DSENSON Lab Interpretation (test Normal code = 21164-9) [facility] [id number] 07:27:11 Test Item Value Reference Range Interpretation Comments Troponin I (test code = <0.03 0.00-0.15 37201-8) VERITO (test code = VERITO) Troponin I [...] DSENSON Lab Interpretation (test Normal code = 65341-4) [facility] [id number] 07:27:11 Test Item Value Reference Range Interpretation [...] failure, acidosis, acute neurological disease, and persistent tachyarrhythmia.[employer] Regist[employer] ID - DSENSONIron, TIBC, % sat. (without ferritin)2021-09-02 06:23:13 Test Item Value Reference Range Interpretation Comments Iron (test code = 2498-4) 16.0 ug/dL 45.0-170.0 L TIBC (test code = 2500-7) 330 ug/dL 250-550 Iron % Saturation (test 5 % 20-55 L code = 2502-3) VERITO (test code = VERITO) [employer] Registrar ID - [id number] ID - [id number] Lab Interpretation (test Abnormal code = 22581-4) [facility]ro, TIBC, % sat. (without ferritin)2021-09-02 06:23:13 Test Item Value Reference Range Interpretation Comments Iron (test code = 2498-4) 16.0 ug/dL 45.0-170.0 L TIBC (test code = 2500-7) 330 ug/dL 250-550 Iron % Saturation (test 5 % 20-55 L code = 2502-3) VERITO (test code = VERITO) [employer] Registrar ID - [id number] ID - [id number] Lab Interpretation (test Abnormal code = 61188-4) [facility], TIBC, % sat. (without ferritin)2021-09-02 06:23:13 Test Item Value Reference Range Interpretation Comments Iron (test code = 2498-4) 16.0 ug/dL 45.0-170.0 L TIBC (test code = 2500-7) 330 ug/dL 250-550 Iron % Saturation (test 5 % 20-55 L code = 2502-3) VERITO (test code = VERITO) [employer] Registrar ID - [id number] ID - [id number] Lab Interpretation (test Abnormal code = 27909-6) [facility]ON, TIBC, % SAT. (WITHOUT FERRITIN)2021-09-02 06:23:13 Test Item Value Reference Range Interpretation Comments IRON (BEAKER) (test code = 547) 16.0 ug/dL 45.0-170.0 L TOTAL IRON BINDING CAPACITY 330 ug/dL 250-550 (BEAKER) (test code = 769) IRON % SATURATION (2) (BEAKER) 5 % 20-55 L (test code = 2590) [employer] Registrar ID - [id number] ID - [id number] 05:12:03 Test Item Value Reference Range Interpretation Comments Ferritin (test code = 38.80 ng/mL 10.00-291.00 2276-4) VERITO (test code = VERITO) [employer] Regist[employer] ID - [id number] Lab Interpretation (test Normal code = 63026-3) [facility] 05:12:03 Test Item Value Reference Range Interpretation Comments Ferritin (test code = 38.80 ng/mL 10.00-291.00 2276-4) VERITO (test code = VERITO) [employer]ist[employer] ID - [id number] Lab Interpretation (test Normal code = 22106-6) [facility] 05:12:03 Test Item Value Reference Range Interpretation Comments Ferritin (test code = 38.80 ng/mL 10.00-291.00 2276-4) VERITO (test code = VERITO) [employer] Registrar ID - [id number] Lab Interpretation (test Normal code = 80211-1) [facility]ERR[facility]IN[facility] 05:12:03 Test Item Value Reference Range Interpretation Comments FERRITIN (BEAKER) (test code = 38.80 ng/mL 10.00-291.00 361) [employer] Registrar ID - [id number]/Free T4 If Rqomexzgt7463-12-59 05:11:18 Test Item Value Reference Range Interpretation Comments TSH (test code = 0.450 See_Comment [Automated 78253-7) message] The system which generated this result transmit aleks reference range : 0.350 - 5.500 uIU/mL. The reference range was not used to interpret this result as normal/abnormal . VERITO (test code = VERITO) [employer] Registrar ID - [id number] Lab Interpretation Normal (test code = 81623-9) [facility]/Free T4 If [id number] 05:11:18 Test Item Value Reference Range Interpretation Comments TSH (test code = 0.450 See_Comment [Automated 32333-1) message] The system which generated this result transmit aleks reference range : 0.350 - 5.500 uIU/mL. The reference range was not used to interpret this result as normal/abnormal . VERITO (test code = VERITO) [employer] Registrar ID - [id number] Lab Interpretation Normal (test code = 41084-1) [facility]/Free T4 If Otaqaqihz3152-08-64 05:11:18 Test Item Value Reference Range Interpretation Comments TSH (test code = 0.450 See_Comment [Automated 46238-2) message] The system which generated this result transmit aleks reference range : 0.350 - 5.500 uIU/mL. The reference range was not used to interpret this result as normal/abnormal . VERITO (test code = VERITO) [employer] Registrar ID - [id number] Lab Interpretation Normal (test code = 19157-5) [facility]/FREE T4 IF [id number] 05:11:18 Test Item Value Reference Range Interpretation Comments THYROID STIMULATING HORMONE 0.450 uIU/mL 0.350-5.500 (BEAKER) (test code = 772) [employer] Registrar ID - [id number] 04:58:50 Test Item Value Reference Range Interpretation [...] failure, acidosis, acute neurological disease, and persistent tachyarrhythmia.[employer] Registrar ID - [id number] METABOLIC [id number] 04:52:40 Test Item Value Reference Range Interpretation [...] S NOT APPLICABLE FOR DIALYSIS PATIEN TS. [employer] Registrar ID - [id number] ID - [id number] ID - [id number] ID - [id number] ID - uvki24Guvjcuji ID - ulee67Tjeghoes ID - [id number] ID - vpxl30Iksmmkwv ID - tscd09Lvahwlam ID - [id number] 04:49:10 Test Item Value Reference Range Interpretation Comments MAGNESIUM (BEAKER) (test code = 1.7 mg/dL 1.5-3.0 627) [employer] Registrar ID - [id number] ID - [id number] ID - [id number] ID - [id number] Lipid wdxrg6733-42-74 04:49:09 Test Item Value Reference Range Interpretation Comments Triglycerides (test 95 mg/dL code = 2571-8) Cholesterol (test code 172 mg/dL = 2093-3) HDL (test code = 64 mg/dL 5-9) LDL Calculated (test 89 mg/dL code = 84534-2) VERITO (test code = VERITO) Triglyceride Reference Range: Low Risk <150 Borderline 150-199 High Risk 200-499 Very High Risk >=500 Cholesterol Reference Range: Low Risk <200 Borderline 200-239 High Risk >240 HDL Cholesterol Reference Range: Low Risk >=60 High Risk <40 LDL Cholesterol Reference Range: Optimal <100 Near Optimal 100-129 Borderline 130-159 High 160-189 Very High >=190 [employer] Registrar ID - [id number] ID - [id number] ID - [email or web address] [facility] jloxc0309-81-56 04:49:09 Test Item Value Reference Range Interpretation Comments Triglycerides (test 95 mg/dL code = 2571-8) Cholesterol (test code 172 mg/dL = 2093-3) HDL (test code = 64 mg/dL 9) LDL Calculated (test 89 mg/dL code = 60689-3) VERITO (test code = VERITO) Triglyceride Reference Range: Low Risk <150 Borderline 150-199 High Risk 200-499 Very High Risk >=500 Cholesterol Reference Range: Low Risk <200 Borderline 200-239 High Risk >240 HDL Cholesterol Reference Range: Low Risk >=60 High Risk <40 LDL Cholesterol Reference Range: Optimal <100 Near Optimal 100-129 Borderline 130-159 High 160-189 Very High >=190 [employer] Registrar ID - [id number] ID - [id number] ID - [email or web address] [facility] xrrqy5242-23-08 04:49:09 Test Item Value Reference Range Interpretation Comments Triglycerides (test 95 mg/dL code = 2571-8) Cholesterol (test code 172 mg/dL = 2093-3) HDL (test code = 64 mg/dL 2085-04) LDL Calculated (test 89 mg/dL code = 59016-5) VERITO (test code = VERITO) Triglyceride Reference Range: Low Risk <150 Borderline 150-199 High Risk 200-499 Very High Risk >=500 Cholesterol Reference Range: Low Risk <200 Borderline 200-239 High Risk >240 HDL Cholesterol Reference Range: Low Risk >=60 High Risk <40 LDL Cholesterol Reference Range: Optimal <100 Near Optimal 100-129 Borderline 130-159 High 160-189 Very High >=190 [employer] School Registrar ID - [id number] ID - [id number] ID - [id number] [facility]IP[facility] [id number] 04:49:09 Test Item Value Reference Range Interpretation [...] Borderline 130-159 High 160-189 Very High >=190 [employer] School Registrar ID - [id number] ID - [id number] ID - [id number] 04:46:26 Test Item Value Reference Range Interpretation Comments Phosphorus (test code = 2.4 mg/dL 2.5-4.5 L 2777-1) VERITO (test code = VERITO) [employer] Registrar ID - [id number] Lab Interpretation (test Abnormal code = 51456-7) [facility] 04:46:26 Test Item Value Reference Range Interpretation Comments Phosphorus (test code = 2.4 mg/dL 2.5-4.5 L 2777-1) VERITO (test code = VERITO) [employer] Registrar ID - [id number] Lab Interpretation (test Abnormal code = 17871-0) [facility] 04:46:26 Test Item Value Reference Range Interpretation Comments Phosphorus (test code = 2.4 mg/dL 2.5-4.5 L 2777-1) VERITO (test code = VERITO) [employer] Registrar ID - [id number] Lab Interpretation (test Abnormal code = 65276-1) [facility] 04:46:26 Test Item Value Reference Range Interpretation Comments PHOSPHORUS (BEAKER) (test code = 2.4 mg/dL 2.5-4.5 L 604) [employer] Registrar ID - [id number] [id number] 04:45:03 Test Item Value Reference Range Interpretation Comments Hemoglobin A1C (test code 5.4 % 4.3-6.1 = 4548-4) VERITO (test code = VERITO) [employer] Registrar ID - [id number] Lab Interpretation (test Normal code = 76831-7) [facility] [id number] 04:45:03 Test Item Value Reference Range Interpretation Comments Hemoglobin A1C (test code 5.4 % 4.3-6.1 = 4548-4) VERITO (test code = VERITO) [employer] Registrar ID - [id number] Lab Interpretation (test Normal code = 50573-8) [facility] [id number] 04:45:03 Test Item Value Reference Range Interpretation Comments Hemoglobin A1C (test code 5.4 % 4.3-6.1 = 4548-4) VERITO (test code = VERITO) [employer] School Registrar ID - [id number] Lab Interpretation (test Normal code = 90969-0) [facility]HEMOGLOBIN [id number] 04:45:03 Test Item Value Reference Range Interpretation Comments HEMOGLOBIN A1C (BEAKER) (test code = 5.4 % 4.3-6.1 368) [employer] Registrar ID - [id number] time/[id number] 04:30:40 Test Item Value Reference Interpretation Comments [...] valves. Lab Interpretation Normal (test code = 10889-8) [facility]Prothrombin time/[id number] 04:30:40 Test Item Value Reference Interpretation Comments [...] valves. Lab Interpretation Normal (test code = 49395-2) [facility]Prothrombin time/[id number] 04:30:40 Test Item Value Reference Interpretation Comments [...] valves. Lab Interpretation Normal (test code = 56896-5) [facility]PROTHROMBIN TIME/[id number] 04:30:40 Test Item Value Reference Range Interpretation Comments PROTIME (BEAKER) 10.7 seconds 9.3-12.0 Final Infor mation (test code = 759) (Auto Outp ut) INR (BEAKER) (test 0.96 See_Comment Final Inf ormation code = 370) (Auto Output) [Automated mess age] The system [employer] generated this result transmitted ref erence range: <=5.90. The reference range was not used to int erpret this result as normal/abnormal . RECOMMENDED COUMADIN/WARFARIN INR THERAPY RANGESSTANDARD DOSE: 2.0 - 3.0 Includes: PROPHYLAXIS for venous thrombosis, systemic embolization; TREATMENT for venous thrombosis and/or pulmonary embolus.HIGH RISK: Target INR is 2.5-3.5 for patients with mechanical heart valves.CBC W/PLT COUNT & AUTO [id number] 04:16:51 Test Item Value Reference Range Interpretation [...] (BEAKER) (test code = 2801) MR, BRAIN, [id number] 03:45:00Unlisted Reason for Exam - Click Yes and Enter Reason Below->NoDeos the patient have an implantedelectronic device?->No [facility] : 1995 Sex: [...] cerebellum was not entirely included within the deoob-qv-vinn on axial sequences. Parenchyma: No infarction on DWI. No hemorrhage. No mass or mass effect. Abnormal Enhancement: None Extra-axial Collection: None Ventricular System: Normal Major Intracranial Flow Voids: Normal Osseous Structures: Expected marrow signal. Included Orbits: Normal Paranasal Sinuses: Predominantly clear Tympanomastoid Cavities: Normal IMPRESSION: The inferior aspect of the cerebellum was not entirelyincluded within the lbgyi-vk-bmex.. Otherwise, unremarkable MRI of the brain without and with contrast. No finding to account for syncope. Signed: Nita Madsen MDReport Verified Date/Time: 09/02/2021 03:45:34 Rapid drug screen, [id number] 23:47:37 Test Item Value Reference Range Interpretation Comments Barbiturate Screen Negative Negative (test code = 16281-6) Benzodiazepine Screen Positive Negative A (test code = 34865-8) Cocaine (Metab.) Negative Negative Screen (test code = 3397-7) Methadone Screen (test Negative Negative code = 70877-3) Opiate Screen (test Negative Negative code = 68473-0) Cannabinoid Screen Positive Negative A (test code = 34282-6) Amph/Methamph Screen Negative Negative (test code = 49034-1) Phencyclidine Screen Negative Negative (test code = 98945-7) pH, UA (test code = 6.5 5.0-8.0 5803-2) VERITO (test code = VERITO) DRUG CUTOFF CONC.Cocaine 300 ng/mL Cannabinoid 50 ng/mLBenzodiazepine 200 ng/mLBarbiturate 200 ng/mLPhencyclidine 25 ng/mLOpiate 300 ng/mLMethadone 300 ng/mLAmphetamine/ 1000 ng/mL Methamphetamine This assay provides an unconfirmed qualitative test result for the clinical management of patients in emergency situations. Chain of custody not maintained. Some bckv-zpt-vxeugvy medications, as well as adulterants, may cause inaccurate results. Clinical correlation should be applied. A more comprehensive drug screen or confirmation of a detected drug may be performed upon request.[employer] Registrar ID - ERINYOperator ID - ERINYOperator ID - ERINYOperator ID - ERINYOperator ID - ERINYOperator ID - ERINYOperator ID - ERINYOperator ID - ERINY Lab Interpretation Abnormal (test code = 82554-7) [facility] screen, [id number] 23:47:37 Test Item Value Reference Range Interpretation Comments Barbiturate Screen Negative Negative (test code = 22518-5) Benzodiazepine Screen Positive Negative A (test code = 75821-4) Cocaine (Metab.) Negative Negative Screen (test code = 3397-7) Methadone Screen (test Negative Negative code = 28981-7) Opiate Screen (test Negative Negative code = 24205-8) Cannabinoid Screen Positive Negative A (test code = 90675-1) Amph/Methamph Screen Negative Negative (test code = 24506-9) Phencyclidine Screen Negative Negative (test code = 44629-2) pH, UA (test code = 6.5 5.0-8.0 5803-2) VERITO (test code = VERITO) DRUG CUTOFF CONC.Cocaine 300 ng/mL Cannabinoid 50 ng/mLBenzodiazepine 200 ng/mLBarbiturate 200 ng/mLPhencyclidine 25 ng/mLOpiate 300 ng/mLMethadone 300 ng/mLAmphetamine/ 1000 ng/mL Methamphetamine This assay provides an unconfirmed qualitative test result for the clinical management of patients in emergency situations. Chain of custody not maintained. Some lkru-eif-guuoaza medications, as well as adulterants, may cause inaccurate results. Clinical correlation should be applied. A more comprehensive drug screen or confirmation of a detected drug may be performed upon request.[employer] Registrar ID - ERINYOperator ID - ERINYOperator ID - ERINYOperator ID - ERINYOperator ID - ERINYOperator ID - ERINYOperator ID - ERINYOperator ID - ERINY Lab Interpretation Abnormal (test code = 14419-8) [facility], [id number] 23:47:37 Test Item Value Reference Range Interpretation Comments Barbiturate Screen Negative Negative (test code = 70787-6) Benzodiazepine Screen Positive Negative A (test code = 37934-3) Cocaine (Metab.) Negative Negative Screen (test code = 3397-7) Methadone Screen (test Negative Negative code = 68854-1) Opiate Screen (test Negative Negative code = 70460-3) Cannabinoid Screen Positive Negative A (test code = 77975-1) Amph/Methamph Screen Negative Negative (test code = 34634-3) Phencyclidine Screen Negative Negative (test code = 00832-4) pH, UA (test code = 6.5 5.0-8.0 5803-2) VERITO (test code = VERITO) DRUG CUTOFF CONC.Cocaine 300 ng/mL Cannabinoid 50 ng/mLBenzodiazepine 200 ng/mLBarbiturate 200 ng/mLPhencyclidine 25 ng/mLOpiate 300 ng/mLMethadone 300 ng/mLAmphetamine/ 1000 ng/mL Methamphetamine This assay provides an unconfirmed qualitative test result for the clinical management of patients in emergency situations. Chain of custody not maintained. Some earm-ans-dtukory medications, as well as adulterants, may cause inaccurate results. Clinical correlation should be applied. A more comprehensive drug screen or confirmation of a detected drug may be performed upon request.[employer] Registrar ID - ERINYOperator ID - ERINYOperator ID - ERINYOperator ID - ERINYOperator ID - ERINYOperator ID - ERINYOperator ID - ERINYOperator ID - ERINY Lab Interpretation Abnormal (test code = 09775-6) [facility]EN, [id number] 23:47:37 Test Item Value Reference Range Interpretation [...] situations. Chain of custody not maintained. Some mduu-jvu-cmgotij medications, as well as adulterants, may cause inaccurate results. Clinical correlation should be applied. A more comprehensive drug screen or confirmation of a detected drug may be performed upon request.[employer] Registrar ID - ERINYOperator ID - ERINYOperator ID - ERINYOperator ID - ERINYOperator ID - ERINYOperator ID - ERINYOperator ID - ERINYOperator ID - ERINYUrinalysis w/Ywoikfessrh2122-96-53 22:54:11 Test Item Value Reference Range Interpretation Comments Color, UA (test code = Yellow 5778-6) Clarity, UA (test code Clear = 5767-9) Specific Armstrong, UA 1.015 1.001-1.035 (test code = 5811-5) pH, UA (test code = 6.5 5.0-8.0 5803-2) Protein, UA (test code Negative Negative = 92603-8) Glucose, UA (test code Negative Negative = 365) Ketones, UA (test code Negative Negative = 2514-8) Bilirubin, UA (test Negative Negative code = 41948-7) Blood, UA (test code = Negative Negative 53250-2) Nitrite, UA (test code Negative Negative = 5802-4) Leukocytes, UA (test Negative Negative code = 5799-2) Urobilinogen, UA (test 0.2 mg/dL 0.2-1.0 code = 80327-6) Bacteria, UA (test Rare code = 68672-0) RBC, UA (test code = None Seen See_Comment [Autom ated message] 799-7) The system [employer] generated this result transmitted ref erence range: /HPF. Th e reference range was not used to int erpret this result as normal/abnormal . WBC, UA (test code = None Seen See_Comment [Autom ated message] 87523-3) The system [employer] generated this result transmitted ref erence range: /HPF. Th e reference range was not used to int erpret this result as normal/abnormal . SQUAMOUS EPITHELIAL 5-10 See_Comment [Automa aleks message] (test code = 96299-4) The sy stem which generated this result transmitted ref erence range: /HPF. Th e reference range was not used to int erpret this result as normal/abnormal . Specimen Source (test code = 2795) [facility]Urinalysis w/Mioxftvxjtz0142-73-30 22:54:11 Test Item Value Reference Range Interpretation Comments Color, UA (test code = Yellow 5778-6) Clarity, UA (test code Clear = 5767-9) Specific Armstrong, UA 1.015 1.001-1.035 (test code = 5811-5) pH, UA (test code = 6.5 5.0-8.0 5803-2) Protein, UA (test code Negative Negative = 32901-6) Glucose, UA (test code Negative Negative = 365) Ketones, UA (test code Negative Negative = 2514-8) Bilirubin, UA (test Negative Negative code = 74667-1) Blood, UA (test code = Negative Negative 99858-6) Nitrite, UA (test code Negative Negative = 5802-4) Leukocytes, UA (test Negative Negative code = 5799-2) Urobilinogen, UA (test 0.2 mg/dL 0.2-1.0 code = 38406-5) Bacteria, UA (test Rare code = 75699-3) RBC, UA (test code = None Seen See_Comment [Autom ated message] 799-7) The system [employer] generated this result transmitted ref erence range: /HPF. Th e reference range was not used to int erpret this result as normal/abnormal . WBC, UA (test code = None Seen See_Comment [Autom ated message] 17341-5) The system [employer] generated this result transmitted ref erence range: /HPF. Th e reference range was not used to int erpret this result as normal/abnormal . SQUAMOUS EPITHELIAL 5-10 See_Comment [Automa aleks message] (test code = 07157-2) The sy stem which generated this result transmitted ref erence range: /HPF. Th e reference range was not used to int erpret this result as normal/abnormal . Specimen Source (test code = 2795) [facility] w/[id number] 22:54:11 Test Item Value Reference Range Interpretation Comments Color, UA (test code = Yellow 5778-6) Clarity, UA (test code Clear = 5767-9) Specific Armstrong, UA 1.015 1.001-1.035 (test code = 5811-5) pH, UA (test code = 6.5 5.0-8.0 5803-2) Protein, UA (test code Negative Negative = 87788-2) Glucose, UA (test code Negative Negative = 365) Ketones, UA (test code Negative Negative = 2514-8) Bilirubin, UA (test Negative Negative code = 41601-4) Blood, UA (test code = Negative Negative 26677-3) Nitrite, UA (test code Negative Negative = 5802-4) Leukocytes, UA (test Negative Negative code = 5799-2) Urobilinogen, UA (test 0.2 mg/dL 0.2-1.0 code = 05892-3) Bacteria, UA (test Rare code = 57236-4) RBC, UA (test code = None Seen See_Comment [Autom ated message] 799-7) The system [employer] generated this result transmitted ref erence range: /HPF. Th e reference range was not used to int erpret this result as normal/abnormal . WBC, UA (test code = None Seen See_Comment [Autom ated message] 35665-0) The system [employer] generated this result transmitted ref erence range: /HPF. Th e reference range was not used to int erpret this result as normal/abnormal . SQUAMOUS EPITHELIAL 5-10 See_Comment [Automa aleks message] (test code = 81581-1) The sy stem which generated this result transmitted ref erence range: /HPF. Th e reference range was not used to int erpret this result as normal/abnormal . Specimen Source (test code = 2795) [facility]URIN[facility]YSIS W/ [id number] 22:54:11 Test Item Value Reference Range Interpretation [...] = 2795) U/S, PELVIS, WITH ENDOVAG AND [id number] 21:36:00Reason for exam:- >lower abd pain with h/o ovarian cysts [facility] 1995 Sex: [...] Libia Sanabria Verified Date/Time: 09/01/2021 21:36:33 D-dimer, [id number] 19:10:58 Test Item Value Reference Range Interpretation Comments D-Dimer, Quant (test 0.47 See_Comment Final I nformation code = 22807-9) (Auto Output ) [Automated message] The system which generated this result transmitted reference range : <0.50 MG/L FEU. The reference range was not used to interpr et this result as normal/abnormal . VERITO (test code = REGARDING D-DIMER VERITO) RESULTS: The 98% NPV (Negative Predictive Value) for DVT/PE exclusion is 0.50 mg/L FEU as suggested by the chemistry quality control technician and as approved by the FDA. Lab Interpretation Normal (test code = 43899-6) [facility]D-[facility]er, [id number] 19:10:58 Test Item Value Reference Range Interpretation Comments D-Dimer, Quant (test 0.47 See_Comment Final I nformation code = 76474-5) (Auto Output ) [Automated message] The system which generated this result transmitted reference range : <0.50 MG/L FEU. The reference range was not used to interpr et this result as normal/abnormal . VERITO (test code = REGARDING D-DIMER VERITO) RESULTS: The 98% NPV (Negative Predictive Value) for DVT/PE exclusion is 0.50 mg/L FEU as suggested by the chemistry quality control technician and as approved by the FDA. Lab Interpretation Normal (test code = 10581-1) [facility]er, [id number] 19:10:58 Test Item Value Reference Range Interpretation Comments D-Dimer, Quant (test 0.47 See_Comment Final I nformation code = 48737-7) (Auto Output ) [Automated message] The system which generated this result transmitted reference range : <0.50 MG/L FEU. The reference range was not used to interpr et this result as normal/abnormal . VERITO (test code = REGARDING D-DIMER VERITO) RESULTS: The 98% NPV (Negative Predictive Value) for DVT/PE exclusion is 0.50 mg/L FEU as suggested by the chemistry quality control technician and as approved by the FDA. Lab Interpretation Normal (test code = 32970-5) [facility] HospitalD-[id number] 19:10:58 Test Item Value Reference Range Interpretation Comments D-DIMER QUANTITATIVE 0.47 MG/L FEU <0.50 Final Information (BEAKER) (test code = (Auto Output) 671) REGARDING D-DIMER RESULTS: The 98% NPV (Negative Predictive Value) for DVT/PE exclusion is 0.50 mg/LFEU as suggested by the chemistry quality control technician and as approved by the FDA.SARS-CoV2/RT-PCR (Symptomatic ONLY)2021-09-01 18:53:55 Test Item Value Reference Interpretation Comments Range SARS-COV2/RT-PCR Negative Negative The SARS-Co V-2 (test code = target nucleic 92322-8) acids are not detected in thi s [...] revoked sooner. Fact Sheet for Healthcare Providers: https://www.SlideJar.com/Documents/Xp ert%20Xpress%20SAR S%20CoV-2/Fact%20S heets/302-3802%20S ARS-COV-2%20HEALTH CARE%20PROVIDERS%2 0FACT%20SHEET.pdf Fact Sheet for Healthcare Patients: https://www.Lodgeo/Documents/Xp ert%20Xpress%20SAR S%20CoV-2/Fact%20S heets/302-3801%20S ARS-COV-2%20PATIEN T%20FACT%20SHEET.p df Lab Interpretation Normal (test code = 63659-6) [facility]pt[facility]2021-09-01 18:53:55 Test Item Value Reference Interpretation Comments Range SARS-COV2/RT-PCR Negative Negative The SARS-Co V-2 (test code = target nucleic 11435-4) acids are not detected in thi s [...] revoked sooner. Fact Sheet for Healthcare Providers: https://www.[employer]odgeo/Documents/Xp ert%20Xpress%20SAR S%20CoV-2/Fact%20S heets/302-3802%20S ARS-COV-2%20HEALTH CARE%20PROVIDERS%2 0FACT%20SHEET.pdf Fact Sheet for Healthcare Patients: https://www.[employer]odge[employer]/Documents/Xp ert%20Xpress%20SAR S%20CoV-2/Fact%20S heets/302-3801%20S ARS-COV-2%20PATIEN T%20FACT%20SHEET.p df Lab Interpretation Normal (test code = 51056-8) [facility]2021-09-01 18:53:55 Test Item Value Reference Interpretation Comments Range SARS-COV2/RT-PCR Negative Negative The SARS-Co V-2 (test code = target nucleic 19074-4) acids are not detected in thi s [...] revoked sooner. Fact Sheet for Healthcare Providers: https://www.Lodgeo/Documents/Xp ert%20Xpress%20SAR S%20CoV-2/Fact%20S heets/3023802%20S ARS-COV-2%20HEALTH CARE%20PROVIDERS%2 0FACT%20SHEET.pdf Fact Sheet for Healthcare Patients: https://www.Lodgeo/Documents/Xp ert%20Xpress%20SAR S%20CoV-2/Fact%20S heets/302-3801%20S ARS-COV-2%20PATIEN T%20FACT%20SHEET.p df Lab Interpretation Normal (test code = 63518-8) [facility])2021-09-01 18:53:55 Test Item Value Reference Range Interpretation Comments SARS-COV2/RT-PCR Negative Negative The SARS-Co V-2 target (test code = nucleic acids a re not 5633122) detected in thi s specimen. Negative result [...] revoked sooner. Fact Sheet for Healthcare Providers: https://www.NuMedii m/Documents/Xpert%20Xpress%20SARS%20CoV-2/Fact%20Sheets/302-3802%63CKPW-FGK-4%20 HEALTHCARE%20PROVIDERS%20FACT%20SHEET.pdf Fact Sheet for Healthcare Patients: https://www.Harir/Documents/Xpert%20Xp ress%20SARS%20CoV-2/Fact%20Sheets/302-3801%26QULA-IXG-1%20PATIENT%20FACT%20SHEET .pdfTROPOCADENN [id number] 18:23:25 Test Item Value Reference Range Interpretation [...] failure, acidosis, acute neurological disease, and persistent tachyarrhythmia.[employer] Registrar ID - ERINYCT, BRAIN, WITHOUT [id number] 18:21:00Unlisted Reason for Exam - Click Yes and Enter Reason Below->No[facility] : 1995 Sex: [...] LindseyMDReport Verified Date/Time: 09/01/2021 18:21:53 BASI METABOLIC [id number] 18:16:13 Test Item Value Reference Range Interpretation [...] S NOT APPLICABLE FOR DIALYSIS PATIEN TS. [employer] Registrar ID - ERINYOperator ID - ERINYOperator ID - ERINYOperator ID - ERINYOperator ID - ERINYOperator ID - ERINYOperator ID - ERINYOperator ID - ERINYOperator ID - ERINYOperator ID - ERINYOperator ID- ERINYOperator ID - ERINYOperator ID - ERINYRAD, CHEST, 1 VIEW, NON [id number] 18:11:00Reason for exam:->HEADACHEReason for exam:->LOSS OF CONSCIOUSNESSShould this be performed at the bedside?->Yes [facility] : 1995 Sex: [...] quadrant of the abdomen. Signed: Libia Sanabria MDRepevon Verified Date/Time: 09/01/2021 18:11:00 CBC W/PLT COUNT & AUTO [id number] 18:08:05 Test Item Value Reference Range Interpretation [...] NA (test code = 135 mmol/L 135-145 9418074263) K (test code = 3.9 mmol/L 3.5-5.0 0695787350) CL (test code = 104 mmol/L 98-108 4409490754) CO2 TOTAL (test code 28 mmol/L 23-31 = 6686753735) AGAP (test code = 2-16 9906205436) BUN (test code = 11 mg/dL 7-23 3616547965) GLUCOSE (test code = 96 mg/dL 70-110 2790605845) CREATININE (test code 0.55 mg/dL 0.50-1.04 = 3340739917) CALCIUM (test code = 8.9 mg/dL 8.6-10.6 3440256327) eGFR (test code = mL/min/1.73m2 3834903360) VERITO (test code = VERITO) Association of [...] or urine or abnormalities in imaging tests). [facility] 17:09:39 Test Item Value Reference Range Interpretation Comments APPEARANCE (test code = Clear Clear 7646718533) COLOR (test code = Yellow Yellow 7651610621) PH (test code = 4.8-8.0 9841380717) SP GRAVITY (test code = 1.003-1.030 0551108863) GLU U QUAL (test code = Normal Normal 6730320500) BLOOD (test code = Negative Negative 5681529848) KETONES (test code = Negative Negative 5046200961) PROTEIN (test code = Negative Negative 2887-8) UROBILIN (test code = Normal Normal 2301151686) BILIRUBIN (test code = Negative Negative 2347478362) NITRITE (test code = Negative Negative 1926501946) LEUK MICHAEL (test code = Negative Negative 2146817913) RBC/HPF (test code = <1 See_Comment [Autom ated message] 1725449326) The system [employer] generated this result transmitted ref erence range: 0 - 3 HP F. The reference range was not used to int erpret this result as normal/abnormal . WBC/HPF (test code = <1 See_Comment [Autom ated message] 3027571486) The system [employer] generated this result transmitted ref erence range: 0 - 5 HP F. The reference range was not used to int erpret this result as normal/abnormal . BACTERIA (test code = Negative Negative 4786648967) MUCOUS (test code = Slight Negative LPF A 9126658169) SQ EPITH (test code = HPF 5750680751) Lab Interpretation (test Abnormal code = 26293-6) [facility]HEPAT[facility] ([address] (ALB,T.PRO,BILI T,BU/BC,ALT,AST,ALK PHOS)2021-04-03 17:08:52 Test Item Value Reference Range Interpretation Comments TOTAL BILI (test code = 7634646958) 0.3 mg/dL 0.1-1.1 BILI UNCON (test code = 3718049604) 0.2 mg/dL 0.1-1.1 BILI CONJ (test code = 6169541873) 0.0 mg/dL 0.0-0.3 T PROTEIN (test code = 3433793715) 7.3 g/dL 6.3-8.2 ALBUMIN (test code = 5677313788) 4.1 g/dL 3.5-5.0 ALK PHOS (test code = 3391416811) 70 U/L 34-122 ALTv (test code = 1742-6) 18 U/L 5-35 AST(SGOT) (test code = 2018874581) 35 U/L 13-40 Lab Interpretation (test code = Normal 46016-8) [facility] HospitalLIP[facility]20[facility] 17:08:52 Test Item Value Reference Range Interpretation Comments LIPASE (test code = 6914156466) 18 U/L 0-220 Lab Interpretation (test code = Normal 63858-9) [facility] HospitalCBC WITH [id number] 16:51:50 Test Item Value Reference Range Interpretation [...] RDW-SD (test code = 39.4 fL 39.0-49.9 31267-3) RDW-CV (test code = 14.4 % 12.0-15.5 788-0) PLT (test code = See_Comment [Automated 777-3) message] The sy stem which generated this result transmitted reference range : 166 - 358 10*3/ ?L. The reference r ryann was not used to interpret this result as normal/abnormal . MPV (test code = 9.8 fL 9.5-12.9 28053-9) NRBC/100 WBC (test See_Comment [Automat ed code = 9563497549) message] The system which generated this result transmitted reference range : 0.0 - 10.0 /100 WBCs. The refer ence range was not u sed to interpret th is result as normal/abnormal . NRBC x10^3 (test code <0.01 See_Comment [Auto mated = 9272504712) message] The s ystem which generated this result transmitted reference range : 10*3/?L. The reference range was not used to interpret this result as normal/abnormal . GRAN MAT (NEUT) % 54.3 % (test code = 770-8) IMM GRAN % (test code 0.20 % = 7728080092) LYMPH % (test code = 33.6 % 736-9) MONO % (test code = 8.6 % 5905-5) EOS % (test code = 2.2 % 713-8) BASO % (test code = 1.1 % 706-2) GRAN MAT x10^3(ANC) 2.46 10*3/uL 1.88-7.09 (test code = 0859356102) IMM GRAN x10^3 (test <0.03 0.00-0.06 code = 5648254827) LYMPH x10^3 (test code 1.52 10*3/uL 1.32-3.29 = 731-0) MONO x10^3 (test code 0.39 10*3/uL 0.33-0.92 = 742-7) EOS x10^3 (test code = 0.10 10*3/uL 0.03-0.39 711-2) BASO x10^3 (test code 0.05 10*3/uL 0.01-0.07 = 704-7) Lab Interpretation Abnormal (test code = 19225-9) [facility] [id number] 02:06:00 Test Item Value Reference Range Interpretation [...] S NOT APPLICABLE FOR DIALYSIS PATIEN TS. [employer] Registrar ID - JUSTINOperator ID - JUSTINOperator ID - JUSTINOperator ID - JUSTINOperator ID - JUSTINOperator ID - JUSTINOperator ID - JUSTINOperator ID - JUSTINOperator ID - JUSTINOperator ID - JUSTINOperator ID - JUSTINOperator ID - JUSTINOperator ID - JUSTINOperator ID - JUSTINOperator ID - JUSTINOperator ID - JUSTINOperator ID - JUSTINOperator ID - JUSTINOperator ID - JUSTINCBC W/PLT COUNT & AUTO [id number] 01:38:00 Test Item Value Reference Range Interpretation [...] PERCENT (BEAKER) (test code = 2801) CT, [id number] 20:33:00Unlisted Reason for Exam - Click Yes and Enter Reason Below->NoWill this procedure require oral contrast?->No [facility] 1995 Sex: [...] MDReport Verified Date/Time: 11/21/2020 20:33:54 Reading Location: [address] Consult Reading Room COMPREHENSIVE METABOLIC [id number] 18:33:00 Test Item Value Reference Range Interpretation [...] S NOT APPLICABLE FOR DIALYSIS PATIEN TS. [employer] Registrar ID - JUSTINOperator ID - JUSTINOperator ID - JUSTINOperator ID - JUSTINOperator ID - JUSTINOperator ID - JUSTINOperator ID - JUSTINOperator ID - JUSTINOperator ID - JUSTINOperator ID - JUSTINOperator ID - JUSTINOperator ID - JUSTINOperator ID - JUSTINOperator ID - JUSTINOperator ID - JUSTINOperator ID - [id number] 18:33:00 Test Item Value Reference Range Interpretation Comments LIPASE (BEAKER) (test code = 749) 8 U/L 6-51 [employer] Registrar ID - JUSTINOperator ID - JUSTINOperator ID - JUSTINOperator ID - KENDRICK CBC W/PLT COUNT & AUTO [id number] 18:16:00 Test Item Value Reference Range Interpretation [...] (BEAKER) (test code = 2801) URINALYSIS W/ [id number] 18:13:00 Test Item Value Reference Range Interpretation [...] = 2795) RAD, CHEST, 1 VIEW, NON [id number] 16:45:00Reason for exam:->fever and abdominal painShould this be performed at the bedside?->Yes [facility] 1995 Sex: FFINAL REPORT CHEST AP PORTABLE History provided: Fever, abdominal pain Radiographically normal-appearing heart and lungs. Signed: Polo Onofreort Verified Date/Time:11/21/2020 16:45:24 Reading Location: [facility] Radiology Reading Room TISSUE EXAM 2020-11-10 15:53:00Surgical Pathology Report Case: [id number] Authorizing Provider: Beatriz Martinez MD Collected: 11/08/2020 04:08 PM Ordering Location: [facility] Received: 11/09/2020 08:07 AM SERVICES Pathologist: Gwen Velez MD Specimen: Uterus w/Cervix & Bilateral Fallopian Tubes, UTERUS, CERVIX AND BILATERAL FALLOPIAN TUBES. UTERUS WITH CERVIX AND BILATERAL FALLOPIAN TUBES, HYSTERECTOMY AND BILATERAL SALPINGECTOMY:ENDOMETRIUM: - PROLIFERATIVE ENDOMETRIUMMYOMETRIUM: - NO SIGNIFICANT PATHOLOGIC ALTERATIONRIGHT FALLOPIAN TUBE: - PARATUBAL CYSTLEFT FALLOPIAN TUBE: - NO SIGNIFICANT PATHOLOGIC ALTERATIONMG/pl Signing Pathologist Direct Phone Line: [phone] signed by Gwen Velez MD on 11/10/2020 at 3:53 [id number] or frequent menstruationUterus, cervix, and bilateral fallopian [...] along with right paratubal cyst; A6, sales representative supervisor cross sections of right fallopian tube; A7, left fimbriated, entirely submitted; A8, sales representative supervisor cross sections of left fallopian tube. MG/pl Performed Formerly [facility], Department of Pathology, [address] [place] [address], [facility] [place] [facility], Department of Pathology, [address] [place] [address], Nu[facility], Departmentof Pathology, [address] [place] [address], RLQA- COV2/INFLUENZA/RSV [id number] 20:30:00 Test Item Value Reference Range Interpretation Comments SARS-COV2/RT-PCR Positive Negative AA (test code = 6164444) INFLUENZA A RT-PCR Negative Negative (test code = 1816588) INFLUENZA B RT-PCR Negative Negative (test code = 5950267) RSV RT-PCR (test Negative Negative Performance of the Xpert code = 6397465) Xpress SARS- CoV-2/Flu/RSV test has only b [...] patien t management deci sions. Results from th e Xpert Xpress SARS-CoV -2/Flu/RSV test should be correlated with the clinic al history, epidem iological data, and other data available to th e clinician evalu ating the patient. Invali [...] sooner.Fact She et for Healthcare Prov iders: https://www.Wordlock.com/D ocuments/Xpert% 20Xpress%2 0ZFNI-UfE-9-Flu -RSV/- 508%20Rev.%20B% 20HCP%20Fa ct%20Sheet.pdfF act Sheet for Healthcare Patients: https://www.Wordlock.com/D ocuments/Xpert% 20Xpress%2 8BNZL-AwM-7-Flu -RSV/302-4 507%20Rev.%20B% 20Patient% 20Fact%20Sheet. pdf SCREEN, [id number] 13:18:00 Test Item Value Reference Range Interpretation Comments TEST URINE (BEAKER) (test Negative code = 583) BASIC METABOLIC [id number] 15:01:00 Test Item Value Reference Range Interpretation [...] S NOT APPLICABLE FOR DIALYSIS PATIEN TS. [employer] Registrar ID - [id number] ID - [id number] ID - pwot41Tgmsqxiy ID - jhfs02Jlvodxiw ID - dyzx29Pkfltubg ID - ddqq79Xxwahhyq ID - lsfp71Zbwpmwal ID - oggu91Fmredmuf ID - hlqu47Zyghwtmy ID - mdgd99Wvkzvvvh ID - maly42Htxnhkww ID - uoqc03Violhehy ID - [id number] W/PLT COUNT & AUTO [id number] 14:33:00 Test Item Value Reference Range Interpretation [...] PERCENT (BEAKER) (test code = 2801) TISSUE [id number] 09:31:00Surgical Pathology Report Case: [id number] Authorizing Provider: Beatriz Martinez MD Collected: 08/23/2020 08:08 AM Ordering Location: [facility] Received: 08/23/2020 11:27 AM SERVICES Pathologist: Gwen Velez MD Specimens: A) - Curettings, Endocervical B) - Curettings, Endometrial A. ENDOCERVIX, CURETTINGS: - BENIGN ENDOCERVICAL MUCOSAB. ENDOMETRIUM, CURETTINGS: - ENDOMETRIAL POLYP - BACKGROUND PROLIFERATIVE ENDOMETRIUM Signing Pathologist Direct Phone Line: [phone] ectronically signed by Gwen Velez MD on 08/24/2020 at 9:31 [id number] abdominal pain A. Curettings endocervical; B. Currettings, [...] submitted into B1. MG/pl A-B: Performed Formerly [facility], Department of Pathology, [address] [place] [address], [facility] [place] [facility], Department of Pathology, [address] [place] [address], [facility], Department of Pathology, [address] [place] [address], QDHTBWWHZ SCREEN, [id number] 06:27:00 Test Item Value Reference Range Interpretation Comments TEST URINE (BEAKER) (test Negative code = 583) SARS-COV2/RT-PCR ([facility])2020-08-20 07:08:00 Test Item Value Reference Range Interpretation Comments SARS-COV2/RT-PCR (test Negative Not Detected, Negative, code = 7168757) See external report for linked test SARS-COV-2 PERFORMING LAB [facility] (test code = 0036093) Negative result for this test determines that [...] the Stevenson SARS-CoV-2 assay.Fact Sheet for Healthcare Providers:https://www.[employer].stevenson/lucía/RT_SAR Q-VaE-7_CAC_Bzpi_Gzblu_86-082128.pdfFact Sheet for Healthcare Patients:https://www.molecular.stevenson/s al/AG_BQYP-OnW-5_Dlwdduf_Kgcc_Utifv_BR_07-472293W7.pdfPerforming Laboratory:[place] [address] [place] [address] BASIC METABOLIC [id number] 11:08:00 Test Item Value Reference Range Interpretation [...] 1092) DATA TO CALCULA TE ESTIMATED GFR. [employer] School Registrar ID - LITOOperator ID - LITOOperator ID - LITOOperator ID - LITOOperator ID - LITOOperator ID - LITOOperator ID - LITOOperator ID - LITOOperator ID - LITOOperator ID - LITOOperator ID - LITOOperator ID - LITOOperator ID - LITOCBC W/PLT COUNT & AUTO [id number] 10:57:00 Test Item Value Reference Range Interpretation [...] in Respiratory specimen by KATIE with probe [id number] 03:49:53 Test Item Value Reference Range Interpretation Comments SARS-CoV-2 (COVID-19) RNA Not detected Not-Detected [Presence] in Respiratory specimen by KATIE with probe detection (test code = 97220-8) XR CHEST 1 [id number] 16:18:43 No acute cardiopulmonary abnormality. Preliminary Report [...] reviewed this study and agree with the abovereport.[facility] TROPONIN [id number] 16:03:00 Test Item Value Reference Range Interpretation Comments TROPONIN I (test <0.012 See_Comment [Automated code = 6315320535) message] The system which generated this result [...] ? Lab Interpretation Normal (test code = 82249-4) [facility] HospitalD-[id number] 16:00:00 Test Item Value Reference Interpretation Comments Range D-DIMER (test code = See_Comment H [Autom ated 1926509724) message] The system which generated this result [...] diagnosis. Lab Interpretation Abnormal (test code = 26696-0) [facility] HospitalCOVID[facility] (ID NOW RAPID TESTING)2020-05-22 16:00:00 Test Item Value Reference Range Interpretation Comments SARS-CoV-2 Rapid ID NOW Not Detected Not Detected (test code = 71493-4) VERITO (test code = VERITO) ID NOW COVID-19 Assay is an isothermal nucleic acid amplification test intended for the qualitative detection of nucleic acid from SARS-CoV-2 viral RNA in nasopharyngeal (SMOKE CONTROL SUPERVISOR) specimens. It is used under Emergency Use [...] indicated. Lab Interpretation Normal (test code = 21869-0) [facility] HospitalaPTT2020-10-11 15:53:00 Test Item Value Reference Range Interpretation Comments APTT Patient (test See_Comment [Automat ed code = 3173-2) message] The system which generated this result transmitted reference range : 23 - 38 Seconds . The reference range was not used to interpr et this result as normal/abnormal . VERITO (test code = VERITO) The [facility] patient population mean normal value for aPTT is 30 seconds. Lab Interpretation Normal (test code = 52559-0) [facility] HospitalCOMP. METABOLIC PANEL (06900)2020-05-22 15:52:00 Test Item Value Reference Range Interpretation Comments NA (test code = 138 mmol/L 135-145 3271566044) K (test code = 3.7 mmol/L 3.5-5 2733208851) CL (test code = 102 mmol/L 98-108 0648056650) CO2 TOTAL (test code = 29 mmol/L 23-31 5479337604) AGAP (test code = 2-16 8881798656) BUN (test code = 7 mg/dL 7-23 1903227097) GLUCOSE (test code = 65 mg/dL 70-110 L 5442276455) CREATININE (test code = 0.70 mg/dL 0.5-1.04 6252513652) TOTAL BILI (test code = 0.4 mg/dL 0.1-1.6 6467268796) CALCIUM (test code = 9.3 mg/dL 8.6-10.6 9239908973) T PROTEIN (test code = 7.8 g/dL 6.3-8.2 4135037411) ALBUMIN (test code = 4.2 g/dL 3.5-5 8363554720) ALK PHOS (test code = 79 U/L 34-122 5222430856) ALTv (test code = 12 U/L 5-35 1742-6) AST(SGOT) (test code = 25 U/L 13-40 0745541019) eGFR Calculation mL/min/1.73m2 (Non-) (test code = 3329266730) eGFR Calculation mL/min/1.73m2 () (test code = 6616671326) VERITO (test code = VERITO) Association of [...] tests). Lab Interpretation Abnormal (test code = 31896-9) [facility] HospitalUrinalysis2020-10-11 15:51:00 Test Item Value Reference Range Interpretation Comments APPEARANCE (test code = Clear Clear 6382730966) COLOR (test code = Straw Yellow A 3181991268) PH (test code = 4.8-8.0 0213291973) SP GRAVITY (test code = 1.003-1.030 4435932189) GLU U QUAL (test code = Normal Normal 7805091537) BLOOD (test code = Negative Negative 0796216423) KETONES (test code = Negative Negative 2739016482) PROTEIN (test code = Negative Negative 2887-8) UROBILIN (test code = Normal Normal 3751565751) BILIRUBIN (test code = Negative Negative 7386561277) NITRITE (test code = Negative Negative 0206171203) LEUK MICHAEL (test code = Negative Negative 1619157455) RBC/HPF (test code = See_Comment [Autom ated message] 4749273470) The system [employer] generated this result transmitted ref erence range: 0 - 3 HP F. The reference range was not used to int erpret this result as normal/abnormal . WBC/HPF (test code = <1 See_Comment [Autom ated message] 3392999154) The system [employer] generated this result transmitted ref erence range: 0 - 5 HP F. The reference range was not used to int erpret this result as normal/abnormal . BACTERIA (test code = Negative Negative 4856472846) SQ EPITH (test code = HPF 8692800086) Lab Interpretation (test Abnormal code = 17452-0) [facility] HospitalPROTHROMBIN TIME / [id number] 15:51:00 Test Item Value Reference Range Interpretation [...] tions. Lab Interpretation (test Normal code = 33286-8) [facility] HospitalLIPASE, [id number] 15:51:00 Test Item Value Reference Range Interpretation Comments LIPASE (test code = 0780517685) 32 U/L 0-220 Lab Interpretation (test code = Normal 35091-5) [facility] HospitalCBC WITH [id number] 15:40:00 Test Item Value Reference Range Interpretation Comments WBC (test code = See_Comment [Automated 3990-2) message] The sy stem which generated this result transmitted reference range : 4.30 - 11.10 10*3/?L. The reference range was not used to interpret this result as normal/abnormal . RBC (test code = See_Comment [Automated 589-8) message] The sy stem which generated this [...] RDW-SD (test code = 41.2 fL 39-49.9 55958-5) RDW-CV (test code = 17.3 % 12-15.5 H 788-0) PLT (test code = See_Comment [Automated 777-3) message] The sy stem which generated this result transmitted reference range : 166 - 358 10*3/ ?L. The reference r ryann was not used to interpret this result as normal/abnormal . MPV (test code = 9.8 fL 9.5-12.9 58215-5) NRBC/100 WBC (test See_Comment [Automat ed code = 9394580395) message] The system which generated this result transmitted reference range : 0.0 - 10.0 /100 WBCs. The refer ence range was not u sed to interpret th is result as normal/abnormal . NRBC x10^3 (test code <0.01 See_Comment [Auto mated = 0078797512) message] The s ystem which generated this result transmitted reference range : 10*3/?L. The reference range was not used to interpret this result as normal/abnormal . GRAN MAT (NEUT) % 50.9 % (test code = 770-8) IMM GRAN % (test code 0.20 % = 5983861203) LYMPH % (test code = 33.3 % 736-9) MONO % (test code = 8.4 % 5905-5) EOS % (test code = 5.4 % 713-8) BASO % (test code = 1.8 % 706-2) GRAN MAT x10^3(ANC) 2.55 10*3/uL 1.88-7.09 (test code = 1663645707) IMM GRAN x10^3 (test <0.03 0-0.06 code = 5995638550) LYMPH x10^3 (test code 1.67 10*3/uL 1.32-3.29 = 731-0) MONO x10^3 (test code 0.42 10*3/uL 0.33-0.92 = 742-7) EOS x10^3 (test code = 0.27 10*3/uL 0.03-0.39 711-2) BASO x10^3 (test code 0.09 10*3/uL 0.01-0.07 H = 704-7) Lab Interpretation Abnormal (test code = 31491-8) [facility] HospitalPOCT [id number] 15:21:00 Test Item Value Reference Range Interpretation Comments POCT PREG (test code = 1605) negative On board controls acceptable with present C Line (test code = 3574) POCT PREG LOT # (test code = 3575) [id number] POCT PREG TEST DATE (test 2021-04-11 code = 3576) Lab Interpretation (test code = Normal 86785-8) [facility]
[2022-05-14] MEDS ORDERED: levETIRAcetam 1,500 MG in NA CHLORIDE 0.9% 100 ML IV ONE (15:30)
[2022-05-14] MEDS ORDERED: DIAZEPAM 10 MG/2 ML INJ SYRINGE ONE (16:15)
--- NOTE | 2022-05-14 17:51 | ER ---
Nurse's Notes [facility] Name: Cheyanne Lopes Age: 26 yrs Sex: Female : 1995 Arrival Date: 05/14/2022 Time: 14:39 Bed 4 Private MD: Diagnosis: Other seizures Presentation: 05/14 14:58 Chief complaint: Friend and/or Co-Worker states: the patient had 3 seizures ap3 dohn-pj-kwvh, and fell and possibly hit her head. the friend stayed with the patient until the patient was alert, and then brought her to the ED to be evaluated. Coronavirus screen: At this time, the client does not indicate any symptoms associated with coronavirus-19. Ebola Screen: No symptoms or risks identified at this time. Initial Sepsis Screen: Does the patient meet any 2 criteria? No. Patient's initial sepsis screen is negative. Does the patient have a suspected source of infection? No. Patient's initial sepsis screen is negative. Risk Assessment: Do you want to hurt yourself or someone else? Patient reports no desire to harm self or others. Onset of symptoms was May 14, 2022. 14:58 Method Of Arrival: Ambulatory ap3 14:58 Acuity: GERI 3 ap3 Triage Assessment: 15:02 General: Appears in no apparent distress. Behavior is calm, cooperative, appropriate ap3 for age. Pain: Denies pain. Neuro: Level of Consciousness is awake, alert, obeys commands, Oriented to person, place, time. Neuro: Seizure activity reported prior to arrival. Cardiovascular: Patient's skin is warm and dry. Respiratory: Airway is patent Respiratory effort is even, unlabored. 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 Patient uses alcohol, occasionally. Screenin:00 Abuse screen: Denies threats or abuse. Nutritional screening: No deficits noted. ap3 Tuberculosis screening: No symptoms or risk factors identified. Fall Risk Fall in past 12 months (25 points). Secondary diagnosis (15 points) seizures, No IV (0 pts). Assessment: 15:18 Reassessment: No changes from previously documented assessment. Patient and/or family ss updated on plan of care and expected duration. Pain level reassessed. 16:15 Reassessment: No changes from previously documented assessment. Patient and/or family kr3 updated on plan of care and expected duration. Pain level reassessed. Patient states symptoms have not improved. Vital Signs: 14:58 BP 129 / 80; Pulse 87; Resp 17; Pulse Ox 100% ; Weight 79.38 kg; Height 5 ft. 6 in. ap3 (167.64 cm); 16:04 BP 113 / 63; Pulse 79; Resp 20; Pulse Ox 100% on R/A; kr3 14:58 Body Mass Index 28.25 (79.38 kg, 167.64 cm) ap3 Rattan Coma Score: 15:02 Eye Response: spontaneous(4). Verbal Response: oriented(5). Motor Response: obeys ap3 commands(6). Total: 15. ED Course: 14:39 Patient arrived in ED. rg4 14:51 Brooke Boothe FNP-C [facility]. snw 14:51 Akil Fried MD is Attending Physician. snw 14:55 Arm band placed on Patient placed in an exam room, on a stretcher. ll1 14:59 Triage completed. ap3 15:02 Patient has correct armband on for positive identification. Call light in reach. ap3 Seizure precautions initiated. Pulse ox on. NIBP on. Door closed. Noise minimized. Warm blanket given. 15:10 Inserted saline lock: 22 gauge in right hand, using aseptic technique. ss 15:18 Thermoregulation: warm blanket given to patient. ss 15:50 Barbie Moeller, MINE is Primary Nurse. kr3 19:23 No provider procedures requiring assistance completed. IV discontinued, intact, kr3 bleeding controlled, No redness/swelling at site. Pressure dressing applied. Administered Medications: 15:07 Not Given (incorrect routee): Keppra (levETIRAcetam) 20 mg/kg PO once; not to exceed ss 1,500 milligrams 15:48 Drug: Keppra (levETIRAcetam) 1500 mg Route: IV; Rate: calculated rate; Site: right hand;kr3 19:23 Follow up: Response: No adverse reaction; RASS: Drowsy (-1); IV Status: Completed kr3 infusion; IV Intake: 325ml 16:18 Drug: Valium (diazepam) 5 mg Route: IVP; Site: right hand; kr3 19:23 Follow up: Response: No adverse reaction; RASS: Alert and Calm (0) kr3 Medication: 15:03 VIS not applicable for this client. ap3 Intake: 19:23 IV: 325ml; Total: 325ml. kr3 Outcome: 17:51 Discharge ordered by . arnoldo 18:04 Patient left the ED. ll1 19:23 Discharged to home ambulatory. kr3 19:23 Condition: stable 19:23 Discharge instructions given to patient, Instructed on discharge instructions, follow up and referral plans. Demonstrated understanding of instructions, follow-up care. Signatures: Brooke Boothe, PEARL PELLER-C PEARL PELLER-Csnw Shraddha Quintanilla RN RN Lennie Jorge4 Kailey Aguayo RN RN ap3 Juanita Parish RN RN ll1 Barbie Moeller RN RN kr3 Corrections: (The following items were deleted from the chart) 16:57 16:56 Reassessment: No changes from previously documented assessment. Patient and/or kr3 family updated on plan of care and expected duration. Pain level reassessed. kr3
--- NOTE | 2022-05-14 17:51 | EDPHYS ---
Physician Documentation [facility] Name: Cheyanne Lopes Age: 26 yrs Sex: Female : 1995 Arrival Date: 05/14/2022 Time: 14:39 Bed 4 Private MD: ED Physician Akil Fried HPI: 05/14 15:05 This 26 yrs old Black Female presents to ER via Ambulatory with complaints of Seizure, snw Passed Out Prior To Arrival. 15:05 The patient presents with a history of multiple seizures, a total of 3. Character of snw seizure(s): Loss of consciousness: the patient experienced loss of consciousness, Motor activity: generalized, Incontinence: none, Apnea: the patient did not experience apnea, Circulation: the patient did not experience evidence of pulse disturbance, Eye movements: are unknown. Seizure onset: today. Context: the seizure(s) was witnessed, by a significant other, occurred at home, occurred while the patient was lying down, Contributing factors: recently changed seizure medications, new medication. Seizure Hx: Last seizure: The patient's last seizure was approximately 7 day(s) ago, Usual frequency: states increase in frequency and character of seizures. Associated injury: The patient did not suffer any apparent associated injury. Current symptoms: headache, that is mild. The patient has experienced similar episodes in the past. Sees Dr. Silverio, Appt this scheduled. 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 Patient uses alcohol, occasionally. ROS: 15:03 Constitutional: Negative for fever, chills, and weight loss, Eyes: Negative for injury, snw pain, redness, and discharge, ENT: Negative for injury, pain, and discharge, Neck: Negative for injury, pain, and swelling, Cardiovascular: Negative for chest pain, palpitations, and edema, Respiratory: Negative for shortness of breath, cough, wheezing, and pleuritic chest pain, Abdomen/GI: Negative for abdominal pain, nausea, vomiting, diarrhea, and constipation, Back: Negative for injury and pain, : Negative for injury, bleeding, discharge, and swelling, MS/Extremity: Negative for injury and deformity, Skin: Negative for injury, rash, and discoloration. 15:03 Neuro: Positive for seizure activity, last seizure Saturday. Changed from Trileptal to Keppra 750mg po on Saturday. Pt had three back to back seizures per S.O. report. Describes gran mal type seizures with three separate events.. Exam: 15:02 Constitutional: This is a well developed, well nourished patient who is awake, alert, snw and in no acute distress. Head/Face: Normocephalic, atraumatic. Eyes: Pupils equal round and reactive to light, extra-ocular motions intact. Lids and lashes normal. Conjunctiva and sclera are non-icteric and not injected. Cornea within normal limits. Periorbital areas with no swelling, redness, or edema. ENT: Nares patent. No nasal discharge, no septal abnormalities noted. Tympanic membranes are normal and external auditory canals are clear. Oropharynx with no redness, swelling, or masses, exudates, or evidence of obstruction, uvula midline. Mucous membranes moist. Neck: Trachea midline, no thyromegaly or masses palpated, and no cervical lymphadenopathy. Supple, full range of motion without nuchal rigidity, or vertebral point tenderness. No Meningismus. Chest/axilla: Normal chest wall appearance and motion. Nontender with no deformity. No lesions are appreciated. Cardiovascular: Regular rate and rhythm with a normal S1 and S2. No gallops, murmurs, or rubs. Normal PMI, no JVD. No pulse deficits. Respiratory: Lungs have equal breath sounds bilaterally, clear to auscultation and percussion. No rales, rhonchi or wheezes noted. No increased work of breathing, no retractions or nasal flaring. Abdomen/GI: Soft, non-tender, with normal bowel sounds. No distension or tympany. No guarding or rebound. No evidence of tenderness throughout. Back: No spinal tenderness. No costovertebral tenderness. Full range of motion. Skin: Warm, dry with normal turgor. Normal color with no rashes, no lesions, and no evidence of cellulitis. MS/ Extremity: Pulses equal, no cyanosis. Neurovascular intact. Full, normal range of motion. Neuro: Awake and alert, GCS 15, oriented to person, place, time, and situation. Cranial nerves II-XII grossly intact. Motor strength 5/5 in all extremities. Sensory grossly intact. Cerebellar exam normal. Normal gait. Psych: Awake, alert, with orientation to person, place and time. Behavior, mood, and affect are within normal limits. Vital Signs: 14:58 BP 129 / 80; Pulse 87; Resp 17; Pulse Ox 100% ; Weight 79.38 kg; Height 5 ft. 6 in. ap3 (167.64 cm); 16:04 BP 113 / 63; Pulse 79; Resp 20; Pulse Ox 100% on R/A; kr3 14:58 Body Mass Index 28.25 (79.38 kg, 167.64 cm) ap3 Junior Coma Score: 15:02 Eye Response: spontaneous(4). Verbal Response: oriented(5). Motor Response: obeys ap3 commands(6). Total: 15. MDM: 14:54 Patient medically screened. snw 17:26 Data reviewed: vital signs, nurses notes. Data interpreted: Pulse oximetry: on room air snw is 100 %. Interpretation: normal. Counseling: I had a detailed discussion with the patient and/or guardian regarding: the historical points, exam findings, and any diagnostic results supporting the discharge/admit diagnosis. 17:27 Physician consultation: spoke with Dr. Silverio, Pt is scheduled to have EEG on . snw Will see about Epilepsy monitoring unit. Keppra is a good choice for this patient until we can get more information. Pt hemodynamically stable. Will discharge to home for planned follow up. 17:29 ED course: Pt has "spells" or episodes that involve shaking, coughing, gagging. Pt is snw without vital sign change, incontinence, or post-ictal state.. 17:50 Special discussion: Based on the history and exam findings, there is no indication for snw further emergent testing or inpatient evaluation. EEG as scheduled and f/u Neuro. 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 I agree with assessment jr11 and care plan and confirm the diagnosis (es) above. Attestation: The patient's history, exam findings, diagnostics, and a summary of any interventions or procedures was reviewed in detail with Brooke SAWANT. Disposition Summary: 05/14/22 17:51 Discharge Ordered Location: Home snw Condition: Stable snw Diagnosis - Other seizures snw Followup: snw - With: Emergency Department - When: As needed - Reason: Worsening of condition Followup: snw - With: Private Physician - When: 2 - 3 days - Reason: Recheck today's complaints, Continuance of care Discharge Instructions: - Discharge Summary Sheet snw - Electroencephalogram, Adult snw - Seizure, Adult snw Forms: - Medication Reconciliation Form snw - Thank You Letter snw - Antibiotic Education snw - Prescription Opioid Use snw Signatures: Brooke Boothe FNP-C ROD FILLER-Csnw Kailey Aguayo RN RN ap3 Akil Fried MD MD jr11 Barbie Moeller RN RN kr3 Shraddha Quintanilla RN ss
[2022-05-14 18:56] VITALS: O2SAT 100
[2022-05-14 18:57] VITALS: BP 113/63
== END 2022-05-14 18:04 | disposition home or self-care (01) ==
LOC: ER 14:38
DX: G40.89 Other seizures (principal); I10 Essential (primary) hypertension; D64.9 Anemia, unspecified; F32.A Depression, unspecified
CPT/HCPCS: 96365; 96375; 99283; 96366; J3360; J1953

== ENCOUNTER 2024-05-22 18:55 | Emergency (ER) | payer OTHER, SELFPAY ==
--- NOTE | 2024-05-22 20:22 | RAD REPORT ---
Procedure: Chest Single View HISTORY: Chest pain COMPARISON: 2021 FINDINGS: The lungs appear clear of acute infiltrate. No significant pleural effusion noted. The heart is normal size. IMPRESSION: No acute abnormality is displayed.
[2024-05-22] MEDS ORDERED: KETOROLAC 30 MG/ML INJ ONE (20:30)
[2024-05-22 20:38] LABS: Absolute Basophils 0.1 K/uL (0-0.5); Absolute Eosinophils 0.2 K/uL (0-0.5); Absolute Lymphocytes (CBC) 2.2 K/uL (0.7-4.9); Absolute Monocytes 0.4 K/uL (0.1-1.3); Absolute Neutrophil 3.7 K/uL (1.8-8.0); Basophils % 1.5 % (0-1.3); Eosinophils % 3.3 % (0-4.4); Hematocrit 35.1 % (36.0-45.0); Hemoglobin 11.4 g/dL (12.0-15.0); Lymphocytes % 33.3 % (15.3-44.8); MCH 23.9 pg (27.0-35.0); MCHC 32.5 g/dL (32.0-36.0); MCV 73.4 fL (80-100); MPV 8.2 fL (7.6-11.3); Monocytes % 6.1 % (3.3-12.3); Neutrophils % 55.8 % (41.7-73.7); Nucleated Red Blood Cells % 0.2 % (0-0); Platelets 244 thou/uL (152-406); RBC Red Blood Cell Count 4.77 M/uL (3.86-4.86); Red Cell Distribution Width 15.5 % (12.1-15.2)
[2024-05-22 20:39] LABS: Specific Gravity > 1.030 (1.005-1.030)
[2024-05-22 20:50] LABS: SARS-CoV-2 Antigen CONTROL BLUE LINE VIS/BG OK; SARS-CoV-2 Antigen Rapid Res Negative (Negative)
[2024-05-22 21:01] LABS: ALT/SGPT 27 U/L (13-56); AST/SGOT 18 U/L (15-37); Albumin 3.9 g/dL (3.4-5.0); Alkaline Phosphatase 110 U/L (45-117); Anion Gap 9.4 mEq/L (5.0-15.0); BUN Blood Urea Nitrogen 11 mg/dL (7-18); Bicarbonate 29 mEq/L (21-32); Bilirubin Direct < 0.2 mg/dL (0-0.2); Bilirubin Total 0.2 mg/dL (0.2-1.0); Globulin 4.1 g/dL (2.3-3.5); Glomerular Filtration Rate 99 ml/min (=/>90); Glucose Level 111 mg/dL (74-106); Lipase 23 U/L (13-75); Magnesium 1.8 mg/dL (1.6-2.4); Potassium 3.4 mEq/L (3.5-5.1); Sodium Level 142 mEq/L (136-145); Troponin High Sensitivity 3.4 pg/mL (<58.9)
--- NOTE | 2024-05-22 22:12 | RAD REPORT ---
EXAMINATION: CT ABDOMEN AND PELVIS WITH CONTRAST CLINICAL INDICATION: Abdominal pain TECHNIQUE: CT abdomen and pelvis was performed, after the administration of 100 cc [id number].. Sagit martínez and coronal reconstructions were obtained. One or more of the following dose reduction techniques were used: Automated exposure control, adjustment of the mA and/or kV according to patien t size, and/or iterative reconstruction. Unless otherwise specified, incidental findings do not require dedicated imaging follow-up. [id number]. Oral contrast was not given which limits evaluation of b owel and appendix. COMPARISON: 2020 FINDINGS: The liver, spleen, pancreas, adrenals and kidneys appear unremarkable There is no evidence of diverticulitis Cholecystectomy. No adnexal mass : IMPRESSION: No acute abnormalities displayed
[2024-05-22 22:54] LABS: Urine Bacteria None Seen /HPF (<20); Urine Crystals Unidentified Few /HPF (None Seen); Urine Micro Reflex YN NO BILL MICROSCOPIC; Urine Mucus 4+ /HPF (None Seen); Urine RBC <5 /HPF (None Seen); Urine WBC <5 /HPF (<5)
[2024-05-22 22:55] LABS: Specific Gravity > 1.030 (1.005-1.030); Urine Bilirubin NEGATIVE (Negative); Urine Blood Negative (Negative); Urine Clarity Clear (Clear); Urine Color Yellow (Yellow); Urine Glucose NEGATIVE (Negative); Urine Ketones NEGATIVE (Negative); Urine Nitrite NEGATIVE (Negative); Urine Protein TRACE (Negative); Urine Urobilinogen Normal (Normal)
[2024-05-22] MEDS ORDERED: CEFTRIAXONE 1000 MG/VIAL ONE (23:21)
[2024-05-22] MEDS ORDERED: HYDROCODONE/APAP 7.5/325 MG TAB ONE (23:21)
--- NOTE | 2024-05-22 23:34 | ER ---
Nurse's Notes [facility] Name: Cheyanne Lopes Age: 28 yrs Sex: Female : 1995 Arrival Date: 05/22/2024 Time: 18:55 Bed 17 Private MD: Diagnosis: Vomiting;Acute upper respiratory infection, unspecified Presentation: 05/22 19:30 Chief complaint: Patient states: Saturday I started to have sores on my gums and my face tm6 was swollen. Then my ears and jaws were hurting. I've been feeling sick for about one week. Today a threw up blood. I've been having chest pains since Saturday. Coronavirus screen: Client denies travel out of the [place] in the last 14 days. Ebola Screen: Patient negative for fever greater than or equal to 101.5 degrees Fahrenheit, and additional compatible Ebola Virus Disease symptoms Patient denies exposure to infectious person. Patient denies travel to an Ebola-affected area in the 21 days before illness onset. No symptoms or risks identified at this time. Initial Sepsis Screen: Does the patient meet any 2 criteria? No. Patient's initial sepsis screen is negative. Does the patient have a suspected source of infection? No. Patient's initial sepsis screen is negative. Risk Assessment: Do you want to hurt yourself or someone else? Patient reports no desire to harm self or others. Onset of symptoms was May 15, 2024. 19:30 Method Of Arrival: Ambulatory tm6 19:30 Acuity: GERI 3 tm6 Triage Assessment: 19:32 General: Appears in no apparent distress. Behavior is calm, cooperative. Pain: tm6 Complains of pain in chest Pain currently is 8 out of 10 on a pain scale. Quality of pain is described as pressure. EENT: No signs and/or symptoms were reported regarding the EENT system. Neuro: Level of Consciousness is awake, alert, obeys commands, Oriented to person, place, time, situation. Cardiovascular: Reports chest pain, Patient's skin is warm and dry. Respiratory: Airway is patent Respiratory effort is even, unlabored, Respiratory pattern is regular, symmetrical. GI: Abdomen is flat, non-distended, Reports vomiting. : No signs and/or symptoms were reported regarding the genitourinary system. Derm: No signs and/or symptoms reported regarding the dermatologic system. Musculoskeletal: Reports body aches. 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 - Infectious Disease History:: Denies. - Social history:: Smoking status: Patient denies any tobacco usage or history of. Patient uses alcohol, occasionally. Screenin:39 [facility] ED Fall Risk Assessment (Adult) History of falling in the last 3 months, jb4 including since admission No falls in past 3 months (0 pts) Confusion or Disorientation No (0 pts) Intoxicated or Sedated No (0 pts) Impaired Gait No (0 pts) Mobility Assist Device Used No (0 pt) Altered Elimination No (0 pt) Score/Fall Risk Level 0 - 2 = Low Risk Oriented to surroundings, Maintained a safe environment. Abuse screen: Denies threats or abuse. Nutritional screening: No deficits noted. Tuberculosis screening: No symptoms or risk factors identified. Assessment: 20:00 General: Appears in no apparent distress. comfortable, Behavior is calm, cooperative, jb4 appropriate for age. Pain: Complains of pain in left cheek and chest Pain does not radiate. Pain currently is 8 out of 10 on a pain scale. Neuro: Level of Consciousness is awake, alert, obeys commands, Oriented to person, place, time, situation. Cardiovascular: Patient's skin is warm and dry. Respiratory: Airway is patent Respiratory effort is even, unlabored, Respiratory pattern is regular, symmetrical. GI: No signs and/or symptoms were reported involving the gastrointestinal system. : No signs and/or symptoms were reported regarding the genitourinary system. EENT: No signs and/or symptoms were reported regarding the EENT system. Derm: Skin is intact, Skin is pink, warm \T\ dry. Musculoskeletal: Circulation, motion, and sensation intact. Range of motion: intact in all extremities. 21:00 Reassessment: Patient appears in no apparent distress at this time. Patient and/or jb4 family updated on plan of care and expected duration. Pain level reassessed. Patient is alert, oriented x 3, equal unlabored respirations, skin warm/dry/pink. 22:00 Reassessment: Patient appears in no apparent distress at this time. Patient and/or jb4 family updated on plan of care and expected duration. Pain level reassessed. Patient is alert, oriented x 3, equal unlabored respirations, skin warm/dry/pink. 23:58 Reassessment: Patient appears in no apparent distress at this time. Patient and/or jb4 family updated on plan of care and expected duration. Pain level reassessed. Patient is alert, oriented x 3, equal unlabored respirations, skin warm/dry/pink. Patient states feeling better. Vital Signs: 19:29 BP 136 / 98; Pulse 85; Resp 16; Temp 98.6(O); Pulse Ox 99% on R/A; MAP 109 mmHg; Weight tm6 80.74 kg; Height 5 ft. 6 in. ; Pain 8/10; 22:39 BP 140 / 74; Pulse 62; Resp 16; Pulse Ox 98% on R/A; jb4 23:24 BP 153 / 98; Pulse 58; Resp 16; Pulse Ox 100% on R/A; jb4 19:29 Body Mass Index 28.73 (80.74 kg, 167.64 cm) tm6 19:29 Pain Scale: Adult tm6 ED Course: 18:57 Patient arrived in ED. am2 18:58 Azael Santizo MD is Attending Physician. rt 19:32 [facility] Pugh [facility] sb4 19:32 Azael Santizo MD is Attending Physician. sb4 19:32 Triage completed. tm6 19:32 Arm band placed on right wrist. tm6 20:10 XRAY Chest (1 view) In Process Unspecified. EDMS 20:10 Initial lab(s) drawn, by id, sent to lab. Inserted saline lock: 18 gauge in right jb4 antecubital area, using aseptic technique. Blood collected. 21:59 CT Abd/Pelvis - IV Contrast Only In Process Unspecified. EDMS 22:39 Patient has correct armband on for positive identification. Bed in low position. Call jb4 light in reach. Side rails up X 1. Provided Education on: plan of care. 23:59 No provider procedures requiring assistance completed. IV discontinued, intact, jb4 bleeding controlled, No redness/swelling at site. Pressure dressing applied. Administered Medications: 20:31 CANCELLED (Physician Discretion): [id number] mg IM once sb4 20:43 Drug: Ketorolac IVP 30 mg IVP once Route: IVP; Site: right antecubital; jb4 23:27 Drug: Hydrocodone-Acetaminophen PO (7.5 mg-325 mg) 1 tabs PO once Route: PO; jb4 23:32 Drug: Rocephin IV 1 grams IV at calculated rate once; Given slow IV push per pharmacy jb4 instructions Route: IV; Rate: calculated rate; Site: right antecubital; Medication: 22:39 VIS not applicable for this client. jb4 Outcome: 23:33 Discharge ordered by . sb4 05/23 00:00 Discharged to home ambulatory, jb4 Condition: stable Discharge instructions given to patient, Instructed on discharge instructions, follow up and referral plans. medication usage, Demonstrated understanding of instructions, follow-up care, medications, Prescriptions given X 1, 00:00 Patient left the ED. jb4 Signatures: Dispatcher [employer] EDMS Cisco Moon, RN RN jb4 Kailey Hinton Sophia PA-Eli PA-C sb4 Azael Santizo MD MD rt Nell Rodriguez RN RN tm6
--- NOTE | 2024-05-22 23:34 | EDPHYS ---
Physician Documentation [facility] Name: Cheyanne Lopes Age: 28 yrs Sex: Female : 1995 Arrival Date: 05/22/2024 Time: 18:55 Bed 17 Private MD: ED Physician Azael Santizo HPI: 05/23 01:56 This 28 yrs old Black Female presents to ER via Ambulatory with complaints of sb4 bodyaches, Vomiting, Doesn't Feel Right. 01:57 Patient reports feeling poorly for about 1 week now. She reports initially having sores sb4 on her mouth, then having ear pain, pressure, then some chest pain and most recently nausea and vomiting. She vomited some blood this morning which is what concerned her and brought her to the emergency department. 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 - Infectious Disease History:: Denies. - Social history:: Smoking status: Patient denies any tobacco usage or history of. Patient uses alcohol, occasionally. ROS: 05/23 01:57 Respiratory: Negative for shortness of breath, cough, wheezing, and pleuritic chest sb4 pain, Constitutional: Positive for fatigue, malaise, ENT: Positive for ear pain, sinus congestion, Cardiovascular: Positive for chest pain, Abdomen/GI: Positive for nausea and vomiting, All other systems are negative, Exam: 01:57 Constitutional: This is a well developed, well nourished patient who is awake, alert, sb4 and in no acute distress. Head/Face: Normocephalic, atraumatic. Eyes: Extra-ocular motions intact. Periorbital areas with no swelling, redness, or edema. ENT: Mucous membranes moist. Cardiovascular: Regular rate and rhythm with a normal S1 and S2. Respiratory: Lungs have equal breath sounds bilaterally, clear to auscultation and percussion. No rales, rhonchi or wheezes noted. No increased work of breathing, no retractions or nasal flaring. Abdomen/GI: Soft, non-tender, no distension. Skin: Warm, dry with normal turgor. Normal color with no rashes, no lesions, and no evidence of cellulitis. Vital Signs: 05/22 19:29 BP 136 / 98; Pulse 85; Resp 16; Temp 98.6(O); Pulse Ox 99% on R/A; MAP 109 mmHg; Weight tm6 80.74 kg; Height 5 ft. 6 in. ; Pain 8/10; 22:39 BP 140 / 74; Pulse 62; Resp 16; Pulse Ox 98% on R/A; jb4 23:24 BP 153 / 98; Pulse 58; Resp 16; Pulse Ox 100% on R/A; jb4 19:29 Body Mass Index 28.73 (80.74 kg, 167.64 cm) tm6 19:29 Pain Scale: Adult tm6 MDM: 19:32 Patient medically screened. sb4 05/23 01:59 Data reviewed: vital signs, nurses notes, lab test result(s), EKG, radiologic studies, sb4 and as a result, I will discharge patient. Consideration of Admission/Observation Escalation of care including admission/observation considered. Counseling: I had a detailed discussion with the patient and/or guardian regarding the historical points, exam findings, and any diagnostic results supporting the discharge/admit diagnosis, the presence of at least one elevated blood pressure reading (>120/80) during this emergency department visit, lab results, radiology results, the need for outpatient follow up, for definitive care, to return to the emergency department if symptoms worsen or persist or if there are any questions or concerns that arise at home. 05/22 19:44 Order name: Basic Metabolic Panel; Complete Time: 21:02 sb4 05/22 19:44 Order name: CBC with Diff; Complete Time: 20:43 sb4 05/22 19:44 Order name: LFT's; Complete Time: 21:02 sb4 05/22 19:44 Order name: Magnesium; Complete Time: 21:02 sb4 05/22 19:44 Order name: Troponin HS; Complete Time: 21:02 sb4 05/22 19:44 Order name: Lipase; Complete Time: 21:02 sb4 05/22 19:44 Order name: SARS RAPID; Complete Time: 20:53 sb4 05/22 19:44 Order name: Flu; Complete Time: 21:01 sb4 05/22 19:44 Order name: Test, Urine; Complete Time: 20:43 sb4 05/22 22:31 Order name: Add On-Lab sb4 05/22 22:54 Order name: Urinalysis W/Microscopic; Complete Time: 22:59 EDMS 05/22 19:44 Order name: XRAY Chest (1 view); Complete Time: 20:28 sb4 05/22 21:17 Order name: CT Abd/Pelvis - IV Contrast Only; Complete Time: 22:16 sb4 05/22 19:44 Order name: EKG; Complete Time: 19:44 sb4 05/22 19:44 Order name: Cardiac monitoring; Complete Time: 20:12 sb4 05/22 19:44 Order name: EKG - Nurse/Tech; Complete Time: 20:07 sb4 05/22 19:44 Order name: IV Saline Lock; Complete Time: 20:42 sb4 05/22 19:44 Order name: Labs collected and sent; Complete Time: 20:42 sb4 05/22 19:44 Order name: O2 Per Protocol; Complete Time: 20:12 sb4 05/22 19:44 Order name: O2 Sat Monitoring; Complete Time: 20:12 sb4 05/22 22:59 Order name: PO challenge; Complete Time: 23:27 sb4 EC/11 19:47 Rate is 71 beats/min. Rhythm is regular, Normal Sinus Rhythm. ID interval is normal at sb4 154 msec. QRS interval is normal at 86 msec. QT interval is normal at 410 msec. No Q waves. T waves are Normal. No ST changes noted. Clinical impression: Normal ECG and No evidence of ischemia. Interpreted by me. Reviewed by me. Administered Medications: 20:31 CANCELLED (Physician Discretion): [id number] mg IM once sb4 20:43 Drug: Ketorolac IVP 30 mg IVP once Route: IVP; Site: right antecubital; jb4 23:27 Drug: Hydrocodone-Acetaminophen PO (7.5 mg-325 mg) 1 tabs PO once Route: PO; jb4 23:32 Drug: Rocephin IV 1 grams IV at calculated rate once; Given slow IV push per pharmacy jb4 instructions Route: IV; Rate: calculated rate; Site: right antecubital; Disposition Summary: 05/22/24 23:33 Discharge Ordered Notes: Location: Home sb4 Problem: new sb4 Symptoms: have improved sb4 Condition: Stable sb4 Diagnosis - Vomiting sb4 - Acute upper respiratory infection, unspecified sb4 Followup: sb4 - With: Emergency Department - When: As needed - Reason: Trouble breathing, Worsening of condition Discharge Instructions: - Discharge Summary Sheet sb4 - Upper Respiratory Infection, Adult, [id number] sb4 Forms: - Antibiotic Education sb4 - Patient Portal Instructions sb4 - Leadership Thank You Letter sb4 Prescriptions: - azithromycin 250 mg Oral tablet - take 1 dose pack ORAL route as directed on dose pack For 250 mg dose pack: take sb4 500 mg today (day 1), then 250 mg for 4 days (days 2-5); 1 Pack; Refills: 0, Product Selection Permitted Addendum: 05/26/2024 13:29 Co-signature as Attending Physician, Azael Santizo MD I reviewed the patient's care r t provided by the Advanced Practice Provider and agree with the diagnosis and treatment plan. Signatures: Dispatcher [employer] EDNE Cisco Moon, RN RN jb4 Wilda Pugh, PA-C PA-C sb4 Azael Santizo MD MD rt Nell Rodriguez RN RN tm6 Corrections: (The following items were deleted from the chart) 05/22 20:31 20:31 Ketorolac IM 30 mg IM once ordered. sb4 sb4
[2024-05-23 03:35] VITALS: TEMP 98.6
[2024-05-23 03:39] VITALS: BP 153/98; O2SAT 100
== END 2024-05-23 | disposition home or self-care (01) ==
LOC: ER 18:55
DX: J06.9 Acute upper respiratory infection, unspecified (principal); Z11.52 Encounter for screening for COVID-19
CPT/HCPCS: 36415; 71045; 74177; 80048; 80076; 81001; 81025; 83690; 83735; 84484; 85025; 87804; 87811; 93005; J0696; Q9967

== ENCOUNTER 2024-06-09 18:38 | Emergency (ER) | payer OTHER ==
[2024-06-09] MEDS ORDERED: NA CHLORIDE 0.9% 1,000 ML ONE (20:23)
--- NOTE | 2024-06-09 20:31 | RAD REPORT ---
EXAM: CT Head Brain Wo Cont HISTORY: HEADACHE COMPARISON: 05/07/2022 TECHNIQUE: Multiple contiguous axial images were obtained for a CT of the brain without contrast. Sag ittal and coronal reformats were performed. One or more of the following dose reduction techniques were used: Automated exposure control, adjus tment of the mA and kV according to patient size, and iterative reconstruction. Unless otherwise specified, incidental findings do not require dedicated imaging follow-up. FINDINGS: No evidence of hydrocephalus, intracranial hemorrhage, or extra-axial fluid collection. The brain is normal in morphology. Incidentally noted partially empty sella again seen. The calvarium is intact. The visualized paranasal sinuses and mastoid air cells are essentially clear . IMPRESSION: No evidence of acute intracranial abnormality.
[2024-06-09 20:50] LABS: Absolute Basophils 0.1 K/uL (0-0.5); Absolute Eosinophils 0.1 K/uL (0-0.5); Absolute Monocytes 0.3 K/uL (0.1-1.3); Absolute Neutrophil 3.5 K/uL (1.8-8.0); Basophils % 1.3 % (0-1.3); Eosinophils % 1.6 % (0-4.4); Hematocrit 35.8 % (36.0-45.0); Hemoglobin 11.3 g/dL (12.0-15.0); Lymphocytes % 33.7 % (15.3-44.8); MCH 23.6 pg (27.0-35.0); MCHC 31.6 g/dL (32.0-36.0); MCV 74.5 fL (80-100); MPV 8.6 fL (7.6-11.3); Monocytes % 5.4 % (3.3-12.3); Platelets 250 thou/uL (152-406); RBC Red Blood Cell Count 4.81 M/uL (3.86-4.86); Red Cell Distribution Width 15.4 % (12.1-15.2)
[2024-06-09 20:57] LABS: Specific Gravity 1.021 (1.005-1.030); Sqamous Epithelial <5 /HPF (None Seen); Urine Bacteria None Seen /HPF (<20); Urine Bilirubin NEGATIVE (Negative); Urine Blood Negative (Negative); Urine Clarity Clear (Clear); Urine Color Light-Yellow (Yellow); Urine Culture Reflex Order NOT NEEDED; Urine Glucose NEGATIVE (Negative); Urine Ketones NEGATIVE (Negative); Urine Microscopic Reflex YN ORDER UMIC; Urine Mucus 1+ /HPF (None Seen); Urine Nitrite NEGATIVE (Negative); Urine Protein TRACE (Negative); Urine RBC <5 /HPF (None Seen); Urine Urobilinogen Normal (Normal); Urine WBC <5 /HPF (<5)
[2024-06-09 21:08] LABS: PT Prothrombin Time 12.2 SECONDS (9.4-12.5); PTT, Activated Partial Thromb 32.6 SECONDS (24.3-36.9); Protime INR 1.09
[2024-06-09 21:26] LABS: ALT/SGPT 25 U/L (13-56); AST/SGOT 14 U/L (15-37); Albumin 3.5 g/dL (3.4-5.0); Albumin/Globulin Ratio 0.8 (1.1-1.8); Alkaline Phosphatase 115 U/L (45-117); Anion Gap 7.3 mEq/L (5.0-15.0); BUN Blood Urea Nitrogen 19 mg/dL (7-18); Bicarbonate 27 mEq/L (21-32); Bilirubin Total 0.2 mg/dL (0.2-1.0); Globulin 4.5 g/dL (2.3-3.5); Glomerular Filtration Rate 89 ml/min (=/>90); Glucose Level 119 mg/dL (74-106); Potassium 3.3 mEq/L (3.5-5.1); Sodium Level 139 mEq/L (136-145); Troponin High Sensitivity 6.5 pg/mL (<58.9)
[2024-06-09 21:29] LABS: Bilirubin Direct < 0.2 mg/dL (0-0.2)
[2024-06-09] MEDS ORDERED: dexAMETHasone 10 MG/ML VIAL ONE (21:49)
[2024-06-09] MEDS ORDERED: DIPHENHYDRAMINE 50 MG/ML VIAL ONE (21:49)
[2024-06-09] MEDS ORDERED: METOCLOPRAMIDE 10 MG/2mL INJ ONE (21:49)
[2024-06-09] MEDS ORDERED: KETOROLAC 30 MG/ML INJ ONE (21:49)
--- NOTE | 2024-06-09 22:14 | ER ---
Nurse's Notes [facility] Name: Cheyanne Lopes Age: 28 yrs Sex: Female : 1995 Arrival Date: 06/09/2024 Time: 18:38 Bed 18 Private MD: None, None Diagnosis: Headache Presentation: 06/09 19:27 Chief complaint: Patient states: pt reports migraine head for three days casuing bm8 weakness. Coronavirus screen: At this time, the client does not indicate any symptoms associated with coronavirus-19. Ebola Screen: Patient negative for fever greater than or equal to 101.5 degrees Fahrenheit, and additional compatible Ebola Virus Disease symptoms Patient denies exposure to infectious person. Patient denies travel to an Ebola-affected area in the 21 days before illness onset. No symptoms or risks identified at this time. Initial Sepsis Screen: Does the patient meet any 2 criteria? HR > 90 bpm. No. Patient's initial sepsis screen is negative. Does the patient have a suspected source of infection? No. Patient's initial sepsis screen is negative. Risk Assessment: Do you want to hurt yourself or someone else? Patient reports no desire to harm self or others. Onset of symptoms was June 06, 2024. 19:27 Method Of Arrival: Ambulatory 8 19:27 Acuity: GERI 3 bm8 Triage Assessment: 19:29 Headache History: The patient has had previous headaches and this one is similar to bm8 previous episodes. General: Appears in no apparent distress. uncomfortable, Behavior is calm, cooperative, appropriate for age. Pain: Complains of pain in face Pain radiates to back Pain currently is 10 out of 10 on a pain scale. Quality of pain is described as aching, crampy, Pain began 2-3 days ago. Also complains of decreased appetite, inability to work, inability to concentrate. EENT: No deficits noted. No signs and/or symptoms were reported regarding the EENT system. Neuro: No deficits noted. Level of Consciousness is awake, alert, obeys commands, Oriented to person, place, time, situation, Appropriate for age. Cardiovascular: Heart tones S1 S2 present Capillary refill < 3 seconds in bilateral fingers Patient's skin is warm and dry. Rhythm is sinus tachycardia. Respiratory: No deficits noted. Airway is patent Trachea midline Respiratory effort is even, unlabored, Respiratory pattern is regular, symmetrical. 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: 19: LMP N/A - Hysterectomy, Not bm8 Historical: - Allergies: : No Known Allergies; bm8 - Home Meds: : carvedilol 6.25 mg Oral tab 1 tab 2 times per day [Active]; Chemo pills [Active]; bm8 diclofenac sodium 75 mg Oral TbEC 1 tab 2 times per day [Active]; hydroxyzine HCl 50 mg Oral tab 1 tab [Active]; Keppra Oral 750 mg for Seizure Disorder [Active]; oxcarbazepine 150 mg Oral tab 2 times per day [Active]; Risperdal 2 mg Oral tab 1 tab once daily [Active]; Trileptal 150 mg Oral tab [Active]; Valtrex 500 mg Oral tab 1 tab 2 times per day [Active]; - PMHx: : Anemia; High Blood Pressure; Depression; Seizure; bm8 - PSHx: : Cholecystectomy; hysterectomy; Appendectomy; bm8 - Immunization history:: Adult Immunizations up to date. - Infectious Disease History:: Denies. - Social history:: Smoking status: Patient denies any tobacco usage or history of. Screenin:40 [facility] ED Fall Risk Assessment (Adult) History of falling in the last 3 months, ar6 including since admission No falls in past 3 months (0 pts) Confusion or Disorientation No (0 pts) Intoxicated or Sedated No (0 pts) Impaired Gait No (0 pts) Mobility Assist Device Used No (0 pt) Altered Elimination No (0 pt) Score/Fall Risk Level 0 - 2 = Low Risk Oriented to surroundings, Maintained a safe environment, Educated pt \T\ family on fall prevention, incl call for assistance when getting out of bed, Hourly rounding (assess needs \T\ fall precautionary measures) done. Abuse screen: Denies threats or abuse. Denies injuries from another. Nutritional screening: No deficits noted. Tuberculosis screening: No symptoms or risk factors identified. Assessment: 20:40 General: Appears in no apparent distress. uncomfortable, Behavior is calm, cooperative, ar6 appropriate for age. Pain: Complains of pain in face Alleviated by rest. Neuro: Level of Consciousness is awake, alert, obeys commands, Oriented to person, place, time, situation. Cardiovascular: Capillary refill < 3 seconds. Respiratory: Airway is patent. GI: Abdomen is round non-distended. : Urine is cloudy. EENT: Oral mucosa is moist. Derm: Skin is intact, is healthy with good turgor, Skin is dry, Skin is pink, warm \T\ dry. Musculoskeletal: No signs and/or symptoms reported regarding the musculoskeletal system. Vital Signs: 19:27 BP 116 / 80; Pulse 162; Resp 18; Temp 98.5; Pulse Ox 98% ; Weight 79.38 kg; Height 5 bm8 ft. 6 in. ; Pain 10/10; 20:40 BP 132 / 72; Pulse 88; Resp 18; Pulse Ox 99% on R/A; ar6 19:27 Body Mass Index 28.25 (79.38 kg, 167.64 cm) bm8 19:27 Pain Scale: Adult bm8 Junior Coma Score: 22:19 Eye Response: spontaneous(4). Motor Response: obeys commands(6). Verbal Response: kb oriented(5). Total: 15. ED Course: 18:41 Patient arrived in ED. as 18:41 None, None is Private Physician. as 19:22 [facility] Bowles [facility]C [facility] kb 19:22 Hari Marcum MD is Attending Physician. kb 19:29 Triage completed. bm8 19:29 Arm band placed on left wrist. bm8 19:58 CT Head Brain wo Cont In Process Unspecified. EDMS 20:15 No apparent distress. Awaiting lab results. ar6 20:15 Inserted saline lock: 22 gauge in left wrist, using aseptic technique. Blood collected. ar6 Flushed with 10 mL NS. 20:19 Violeta Alvarez, RN is Primary Nurse. ar6 20:34 Basic Metabolic Panel Sent. ar6 20:34 CBC with Diff Sent. ar6 20:34 Hepatic Function Sent. ar6 20:34 Magnesium Sent. ar6 20:34 Protime (+inr) Sent. ar6 20:34 Ptt, Activated Sent. ar6 20:34 Troponin High Sensitivity Sent. ar6 20:35 Urinalysis w/ reflexes Sent. ar6 20:40 Patient has correct armband on for positive identification. Bed in low position. Call ar6 light in reach. Side rails up X 1. Provided Education on: plan of care. Client placed on continuous cardiac and pulse oximetry monitoring. NIBP monitoring applied. Door closed. Lights dimmed. Moved to private room. Warm blanket given. 20:40 No provider procedures requiring assistance completed. ar6 22:37 IV discontinued, intact, bleeding controlled, No redness/swelling at site. Pressure jb4 dressing applied. Administered Medications: 20:34 Drug: NS 0.9% IV 1000 ml IV at 1000 ml once; to be given as a bolus over 60 minutes ar6 Route: IV; Rate: 1000 ml; Site: right wrist; 21:59 Drug: Ketorolac IVP 15 mg IVP once Route: IVP; Site: right wrist; ar6 21:59 Drug: Decadron - Dexamethasone IVP 10 mg IVP once Route: IVP; Site: right wrist; ar6 21:59 Drug: metoCLOPramide IVP 10 mg IVP once; over 1 to 2 minutes Route: IVP; Site: right ar6 wrist; 21:59 Drug: diphenhydrAMINE IVP 12.5 mg IVP once Route: IVP; Site: right wrist; ar6 Medication: 20:40 VIS not applicable for this client. ar6 Outcome: 22:13 Discharge ordered by MD. pierce 22:37 Discharged to home ambulatory, jb4 22:37 Condition: stable 22:37 Discharge instructions given to patient, Instructed on discharge instructions, follow up and referral plans. Demonstrated understanding of instructions, follow-up care, 22:37 Patient left the ED. jb4 Signatures: Dispatcher [employer] EDMS Tila Bowles, SONIA-Eli SCOTT-Selin Mcfarlane James RN RN jb4 Paulo Shearer, RN RN bm8 Violeta Alvarez, RN RN ar6
--- NOTE | 2024-06-09 22:14 | EDPHYS ---
Physician Documentation [facility] Name: Cheyanne Lopes Age: 28 yrs Sex: Female : 1995 Arrival Date: 06/09/2024 Time: 18:38 Bed 18 Private MD: None, None ED Physician Hari Marcum HPI: 06/09 19:24 This 28 yrs old Black Female presents to ER via Unassigned with complaints of Headache, kb Numbness, Back Pain. 19:24 Pt is a 28 year old female who presents for headache x3 days ago with intermittent kb radiation down back. Denies nausea, vomiting, fever. . 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 - Hysterectomy, Not bm8 Historical: - Allergies: 19:29 No Known Allergies; bm8 - Home Meds: 19:29 carvedilol 6.25 mg Oral tab 1 tab 2 times per day [Active]; Chemo pills [Active]; bm8 diclofenac sodium 75 mg Oral TbEC 1 tab 2 times per day [Active]; hydroxyzine HCl 50 mg Oral tab 1 tab [Active]; Keppra Oral 750 mg for Seizure Disorder [Active]; oxcarbazepine 150 mg Oral tab 2 times per day [Active]; Risperdal 2 mg Oral tab 1 tab once daily [Active]; Trileptal 150 mg Oral tab [Active]; Valtrex 500 mg Oral tab 1 tab 2 times per day [Active]; - PMHx: 19:29 Anemia; High Blood Pressure; Depression; Seizure; bm8 - PSHx: 19:29 Cholecystectomy; hysterectomy; Appendectomy; bm8 - Immunization history:: Adult Immunizations up to date. - Infectious Disease History:: Denies. - Social history:: Smoking status: Patient denies any tobacco usage or history of. ROS: 19:24 Constitutional: As per HPI kb Exam: 19:24 Constitutional: This is a well developed, well nourished patient who is awake, alert, kb and in no acute distress. Head/Face: Normocephalic, atraumatic. Eyes: Pupils equal round and reactive to light, extra-ocular motions intact. Lids and lashes normal. Conjunctiva and sclera are non-icteric and not injected. Cornea within normal limits. Periorbital areas with no swelling, redness, or edema. ENT: Moist Mucous membranes Cardiovascular: Regular rate Respiratory: Respirations even and unlabored. No increased work of breathing. Talking in full sentences Skin: Warm, dry with normal turgor. Normal color. MS/ Extremity: Pulses equal, no cyanosis. Neurovascular intact. Full, normal range of motion. Neuro: Awake and alert, GCS 15, oriented to person, place, time, and situation. 21:54 ECG was reviewed by the Attending Physician. kb Vital Signs: 19:27 BP 116 / 80; Pulse 162; Resp 18; Temp 98.5; Pulse Ox 98% ; Weight 79.38 kg; Height 5 bm8 ft. 6 in. ; Pain 10/10; 20:40 BP 132 / 72; Pulse 88; Resp 18; Pulse Ox 99% on R/A; ar6 19:27 Body Mass Index 28.25 (79.38 kg, 167.64 cm) bm8 19:27 Pain Scale: Adult bm8 [place] Coma Score: 22:19 Eye Response: spontaneous(4). Motor Response: obeys commands(6). Verbal Response: kb oriented(5). Total: 15. MDM: 19:23 Medical Screening Exam initiated kb 22:19 Differential diagnosis: cluster headache, migraine, tension headache. Data reviewed: kb vital signs, nurses notes. Counseling: I had a detailed discussion with the patient and/or guardian regarding the historical points, exam findings, and any diagnostic results supporting the discharge/admit diagnosis, lab results, radiology results, the need for outpatient follow up, a family practitioner, to return to the emergency department if symptoms worsen or persist or if there are any questions or concerns that arise at home. Response to treatment: the patient's symptoms have markedly improved after treatment. 06/09 19: Order name: Basic Metabolic Panel; Complete Time: 21:31 kb 06/09 19: Order name: CBC with Diff; Complete Time: 21:00 kb 06/09 Order name: Hepatic Function; Complete Time: 21:31 kb 06/09 19: Order name: Magnesium; Complete Time: 21:31 kb 06/09 19:29 Order name: Protime (+inr); Complete Time: 21:09 kb 06/09 19:29 Order name: Ptt, Activated; Complete Time: 21:09 kb 06/09 19: Order name: Troponin High Sensitivity; Complete Time: 21:31 kb 06/09 19: Order name: Urinalysis w/ reflexes; Complete Time: 20:59 kb 06/09 19: Order name: CT Head Brain wo Cont; Complete Time: 20:35 kb 06/09 19: Order name: Cardiac monitoring; Complete Time: 20:19 kb 06/09 19:29 Order name: EKG - Nurse/Tech; Complete Time: 21:13 kb 06/09 Order name: IV Saline Lock; Complete Time: 20:19 kb 06/09 19: Order name: Labs collected and sent; Complete Time: 22:00 kb 06/09 19: Order name: NPO; Complete Time: 20:19 kb 06/09 19: Order name: O2 Per Protocol; Complete Time: 20:19 kb 06/09 19: Order name: O2 Sat Monitoring; Complete Time: 20:19 kb EC:54 Rate is 76 beats/min. Rhythm is regular. QRS [place] is Normal. MI interval is normal at kb 156 msec. QRS interval is normal at 88 msec. QT interval is normal at 443 msec. Administered Medications: 20:34 Drug: NS 0.9% IV 1000 ml IV at 1000 ml once; to be given as a bolus over 60 minutes ar6 Route: IV; Rate: 1000 ml; Site: right wrist; 21:59 Drug: Ketorolac IVP 15 mg IVP once Route: IVP; Site: right wrist; ar6 21:59 Drug: Decadron - Dexamethasone IVP 10 mg IVP once Route: IVP; Site: right wrist; ar6 21:59 Drug: metoCLOPramide IVP 10 mg IVP once; over 1 to 2 minutes Route: IVP; Site: right ar6 wrist; 21:59 Drug: diphenhydrAMINE IVP 12.5 mg IVP once Route: IVP; Site: right wrist; ar6 Disposition Summary: 06/09/24 22:13 Discharge Ordered Notes: Location: Home kb Condition: Stable kb Diagnosis - Headache kb Followup: kb - With: Emergency Department - When: As needed - Reason: Worsening of condition Followup: kb - With: Private Physician - When: 2 - 3 days - Reason: Recheck today's complaints, Continuance of care, Re-evaluation by your physician Discharge Instructions: - Discharge Summary Sheet kb - General Headache Without Cause, [id number] kb Forms: - Medication Reconciliation Form kb - Antibiotic Education kb - Prescription Opioid Use kb - Patient Portal Instructions kb - Leadership Thank You Letter kb Signatures: Dispatcher [employer] EDMS Tila Bowles, COLD ROLL PACKER SHEET IRON-C C[employer] IRON-Paulo Smith, RN RN bm8 Violeta Alvarez, RN RN ar6 Corrections: (The following items were deleted from the chart) 19:29 19:29 BASIC METABOLIC PANEL+C.LAB.BRZ ordered. EDMS EDMS 19:29 19:29 CBC+H.LAB.BRZ ordered. EDMS EDMS 19:29 19:29 HEPATIC FUNCTION+C.LAB.BRZ ordered. EDMS EDMS 19:29 19:29 MAGNESIUM+C.LAB.BRZ ordered. EDMS EDMS 19:29 19:29 PROTIME (+INR)+COAG.LAB.BRZ ordered. EDMS EDMS 19:29 19:29 PTT, ACTIVATED+COAG.LAB.BRZ ordered. EDMS EDMS 19:29 19:29 Troponin High Sensitivity+C.LAB.BRZ ordered. EDMS EDMS 19:29 19:29 Urinalysis+U.LAB.BRZ ordered. EDMS EDMS 19:29 19:29 Head Brain Wo Cont+CT.RAD.BRZ ordered. EDMS EDMS
[2024-06-09 23:07] VITALS: TEMP 98.5
[2024-06-09 23:08] VITALS: BP 132/72; O2SAT 99
--- NOTE | 2024-06-10 14:47 | EKG ---
Test Date: 2024-06-09 Test Time: 21:19:02 Public Relations Consultant: DADYAY MEASUREMENT RESULTS: Intervals: Rate: 76 NE: 156 QRSD: 88 QT: 394 QTc: 443 [place]: P: 54 NE: 156 QRS: 48 T: 39 INTERPRETIVE STATEMENTS: Normal sinus rhythm Normal ECG Compared to ECG 05/22/2024 19:46:05 No significant changes Electronically Signed On 06-10-24 14:45:45 CDT by Antolin Peñaloza
== END 2024-06-09 22:37 | disposition home or self-care (01) ==
LOC: ER 18:38
DX: R51.9 Headache, unspecified (principal)
CPT/HCPCS: 85025; 81001; 80048; 36415; 83735; 85610; 80076; 85730; 84484; 70450; J2765; J1200; J1100; J7030; 93005; 96374; 96375; 99284

== ENCOUNTER 2024-07-11 22:20 | Emergency (ER) | payer OTHER ==
[2024-07-11] MEDS ORDERED: KETOROLAC 30 MG/ML INJ ONE (23:15)
[2024-07-11] MEDS ORDERED: CEFTRIAXONE 1000 MG/VIAL ONE (23:15)
[2024-07-11] MEDS ORDERED: NA CHLORIDE 0.9% 50 ML ONE (23:16)
[2024-07-11] MEDS ORDERED: MORPHINE 4 MG/ML SYR ONE (23:16)
[2024-07-11] MEDS ORDERED: NA CHLORIDE 0.9% 1,000 ML ONE (23:16)
[2024-07-11 23:22] LABS: Absolute Basophils 0.1 K/uL (0-0.5); Absolute Eosinophils 0.1 K/uL (0-0.5); Absolute Monocytes 0.6 K/uL (0.1-1.3); Absolute Neutrophil 5.4 K/uL (1.8-8.0); Eosinophils % 1.1 % (0-4.4); Hematocrit 34.8 % (36.0-45.0); Hemoglobin 10.9 g/dL (12.0-15.0); Lymphocytes % 24.6 % (15.3-44.8); MCH 23.6 pg (27.0-35.0); MCHC 31.3 g/dL (32.0-36.0); MCV 75.2 fL (80-100); MPV 8.4 fL (7.6-11.3); Neutrophils % 66.3 % (41.7-73.7); Platelets 239 thou/uL (152-406); RBC Red Blood Cell Count 4.63 M/uL (3.86-4.86); Red Cell Distribution Width 15.6 % (12.1-15.2)
[2024-07-11 23:44] LABS: ALT/SGPT 33 U/L (13-56); AST/SGOT 21 U/L (15-37); Albumin 3.4 g/dL (3.4-5.0); Albumin/Globulin Ratio 0.8 (1.1-1.8); Alkaline Phosphatase 116 U/L (45-117); Anion Gap 10.4 mEq/L (5.0-15.0); BUN Blood Urea Nitrogen 19 mg/dL (7-18); Bicarbonate 26 mEq/L (21-32); Globulin 4.5 g/dL (2.3-3.5); Glomerular Filtration Rate 106 ml/min (=/>90); Glucose Level 108 mg/dL (74-106); Potassium 3.4 mEq/L (3.5-5.1); Protein, Total 7.9 g/dL (6.4-8.2); Sodium Level 137 mEq/L (136-145)
[2024-07-11 23:46] LABS: Bilirubin Total < 0.2 mg/dL (0.2-1.0)
--- NOTE | 2024-07-12 01:42 | EDPHYS ---
Physician Documentation [facility] Name: Cheyanne Lopes Age: 28 yrs Sex: Female : 1995 Arrival Date: 07/11/2024 Time: 22:20 Bed 7 Private MD: ED Physician Elliot Bain HPI: 07/11 22:35 This 28 yrs old Black Female presents to ER via Ambulatory with complaints of Toothache.sp4 07/12 18:41 28-year-old female presents with left upper dental pain and complaint of moderate to sp4 severe left upper facial pain. States pain has been ongoing for the past 2 months. 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 - Infectious Disease History:: Denies. - Social history:: Smoking status: Patient denies any tobacco usage or history of. - Family history:: not pertinent. ROS: 07/12 18:41 Constitutional: Negative for fever, chills, and weight loss, positive left dental pain sp4 , positive for left upper facial pain All other systems are negative, Exam: 18:41 Constitutional: This is a well developed, well nourished patient who is awake, alert, sp4 and in no acute distress. Head/Face: Normocephalic, atraumatic. Eyes: Pupils equal round and reactive to light, extra-ocular motions intact. Lids and lashes normal. Conjunctiva and sclera are not injected. Cornea within normal limits. Periorbital areas with no swelling, redness, or edema. ENT: Nares patent. No nasal discharge, no septal abnormalities noted. Tympanic membranes are normal and external auditory canals are clear. Oropharynx with no redness, swelling, or masses, exudates, or evidence of obstruction, uvula midline. Mucous membranes moist. Patient has dental cavity tooth #13 with signs of moderate to severe tenderness to palpation tooth #13, no sign of drainable gingival abscess. Overall dental health is fair Neck: Trachea midline, no thyromegaly or masses palpated, and no cervical lymphadenopathy. Supple, full range of motion without nuchal rigidity, or vertebral point tenderness. Chest/axilla: Normal chest wall appearance and motion. Nontender with no deformity. No lesions are appreciated. Cardiovascular: Regular rate and rhythm with a normal S1 and S2. No gallops, murmurs, or rubs. Normal PMI, no JVD. No pulse deficits. Respiratory: Lungs have equal breath sounds bilaterally, clear to auscultation and percussion. No rales, rhonchi or wheezes noted. No increased work of breathing, no retractions or nasal flaring. Abdomen/GI: Soft, with normal bowel sounds. No distension or tympany. No guarding or rebound. No evidence of tenderness throughout. Back: No spinal tenderness. No costovertebral tenderness. Skin: Warm, dry with normal turgor. Normal color with no rashes, no lesions, and no evidence of cellulitis. MS/ Extremity: Pulses equal, no cyanosis. Neurovascular intact. Full, normal range of motion. Neuro: Awake and alert, GCS 15, oriented to person, place, time, and situation. Cranial nerves II-XII grossly intact. Motor strength 5/5 in all extremities. Sensory grossly intact. Psych: Awake, alert, with orientation to person, place and time. Behavior, mood, and affect are within normal limits Vital Signs: 07/11 22:28 BP 123 / 93; Pulse 103; Resp 20; Temp 98.5(TE); Pulse Ox 100% on R/A; Weight 80.74 kg (R); Height 5 ft. 6 in. ; Pain 05/21; 07/12 01:16 BP 142 / 84; Pulse 85; Resp 18; Pulse Ox 100% ; vc1 01:59 BP 135 / 76; Pulse 85; Resp 18; Pulse Ox 100% ; cp4 07/11 22:28 Body Mass Index 28.73 (80.74 kg, 167.64 cm) 07/11 22:28 Pain Scale: Adult Junior Coma Score: 18:41 Eye Response: spontaneous(4). Motor Response: obeys commands(6). Verbal Response: sp4 oriented(5). Total: 15. MDM: 07/11 22:42 Medical Screening Exam initiated sp4 07/12 01:40 ED course: EXAM: CT Maxillofacial With Intravenous Contrast CLINICAL HISTORY: The sp4 patient is 28 years old and is Female; facial swelling left TECHNIQUE: Axial computed tomography images of the face with intravenous contrast. Sagittal and coronal reformatted images were created and reviewed. This CT exam was performed using one or more of the following dose reduction techniques: automated exposure control, adjustment of the mA and/or kV according to patient size, and/or use of iterative reconstruction technique. COMPARISON: No relevant prior studies available. FINDINGS: Bones/joints: No acute fracture. Soft tissues: Unremarkable. Orbits: Unremarkable. Sinuses: Unremarkable. No air-fluid levels. IMPRESSION: No acute fracture. Electronically signed by: Abilio Alford MD 07/12/20. 18:41 Differential diagnosis: dental caries, gingivitis, dental abscess, pericoronitis, sp4 aphthous ulcers. Data reviewed: vital signs, nurses notes, lab test result(s), radiologic studies, CT scan. ED course: CT has revealed no sign of drainable abscess. Did reveal significant decay dental cavity tooth #13. Patient advised to follow-up with a dentist for either a root canal or extraction of tooth #13 other dental procedures as may be necessary. 07/11 22:43 Order name: CBC with Diff; Complete Time: :18 sp4 07/11 22:43 Order name: CMP; Complete Time: 18 sp4 07/11 22:43 Order name: CT Facial Bones W/ Con \T\ Mpr sp4 07/11 22:43 Order name: Saline Lock; Complete Time: 23:30 sp4 Administered Medications: 07/11 23:29 Drug: Ketorolac IVP 30 mg IVP once Route: IVP; Site: right hand; cp4 07/12 01:41 Follow up: Response: No adverse reaction; Pain is decreased cp4 07/11 23:30 Drug: morphine IVP or IV 4 mg IVP once over 4 mins Route: IVP; Infused Over: 4 mins; cp4 Site: right hand; 07/12 01:41 Follow up: Response: No adverse reaction; Pain is decreased cp4 07/11 23:30 Drug: NS 0.9% IV 1000 ml IV at 1000 ml once; to be given as a bolus over 60 minutes cp4 Route: IV; Rate: 1000 ml; Site: right hand; 07/12 01:41 Follow up: IV Status: Completed infusion cp4 07/11 23:30 Drug: Rocephin - Rocephin (cefTRIAXone) IVPB 1 grams IVPB once over 30 mins; (mix in 50 cp4 mL NS) Route: IVPB; Infused Over: 30 mins; Site: right hand; 07/12 00:00 Follow up: IV Status: Completed infusion cp4 01:48 Drug: HYDROcodone-acetaminophen PO 5 mg-325 mg 2 tabs PO once Route: PO; cp4 01:59 Follow up: Response: No adverse reaction cp4 01:49 Drug: Cephalexin PO 500 mg PO once Route: PO; cp4 01:59 Follow up: Response: No adverse reaction cp4 Disposition: 18:44 Chart complete. sp4 Disposition Summary: 07/12/24 01:41 Discharge Ordered Notes: Location: Home sp4 Condition: Stable sp4 Diagnosis - Tooth # 13 Cavity and pulputis , Acute Dental Pain associated with acute sp4 pulpitis Followup: sp4 - With: Private Physician - When: 7 - 10 days - Reason: Recheck today's complaints Discharge Instructions: - Discharge Summary Sheet sp4 - Dental Caries, Adult, [id number] sp4 Forms: - Patient Portal Instructions sp4 Prescriptions: - naproxen 500 mg Oral tablet - take 1 tablet ORAL route every 12 hours PRN pain; 30 tablet; Refills: 0, sp4 Product Selection Permitted - Cephalexin 500 mg Oral Capsule - take 1 capsule ORAL route every 12 hours for 10 days; 20 capsule; Refills: 0, sp4 Product Selection Permitted - Tramadol 50 mg Oral Tablet - take 1 tablet ORAL route every 8 hours as needed; 12 tablet; Refills: 0, sp4 Product Selection Permitted Signatures: Dispatcher [employer] EDBeatriz Saunders RN RN kl Potepalov, Sergey, MD MD sp4 Jocelin Donald 4 Corrections: (The following items were deleted from the chart) 07/11 22:43 22:43 CBC+H.LAB.BRZ ordered. EDMS EDMS 22:43 22:43 COMPREHENSIVE METABOLIC PANEL+C.LAB.BRZ ordered. EDMS EDMS 22:43 22:43 Facial Bones W/ Con \T\ MPR+CT.RAD.BRZ ordered. EDMS EDMS
--- NOTE | 2024-07-12 01:42 | ER ---
Nurse's Notes [facility] Name: Cheyanne Lopes Age: 28 yrs Sex: Female : 1995 Arrival Date: 07/11/2024 Time: 22:20 Bed 7 Private MD: Diagnosis: Tooth # 13 Cavity and pulputis , Acute Dental Pain associated with acute pulpitis Presentation: 07/11 22:28 Chief complaint: Patient states: left side jaw pain reports tooth ache X 1 WEEK kl completed antibiotics without relief pain to left ear and neck reports dizziness. Coronavirus screen: Vaccine status: Patient reports receiving the 2nd dose of the covid vaccine. Ebola Screen: Patient negative for fever greater than or equal to 101.5 degrees Fahrenheit, and additional compatible Ebola Virus Disease symptoms. Initial Sepsis Screen: Does the patient meet any 2 criteria? HR > 90 bpm. Does the patient have a suspected source of infection?. Risk Assessment: Do you want to hurt yourself or someone else? Patient reports no desire to harm self or others. 22:28 Method Of Arrival: Ambulatory 22:28 Acuity: GERI 3 kl Triage Assessment: 22:32 General: Appears uncomfortable, Behavior is calm, cooperative. Pain: Complains of pain kl in left jaw Pain radiates to left ear Pain currently is 10 out of 10 on a pain scale. EENT: Reports pain in left jaw. 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 - Infectious Disease History:: Denies. - Social history:: Smoking status: Patient denies any tobacco usage or history of. - Family history:: not pertinent. Screenin:27 [facility] ED Fall Risk Assessment (Adult) History of falling in the last 3 months, cp4 including since admission No falls in past 3 months (0 pts) Confusion or Disorientation No (0 pts) Intoxicated or Sedated No (0 pts) Impaired Gait No (0 pts) Mobility Assist Device Used No (0 pt) Altered Elimination No (0 pt) Score/Fall Risk Level 0 - 2 = Low Risk Oriented to surroundings, Maintained a safe environment, Assessed \T\ reinforced patient's understanding of fall precautions, Hourly rounding (assess needs \T\ fall precautionary measures) done. Abuse screen: Denies threats or abuse. Nutritional screening: No deficits noted. Tuberculosis screening: No symptoms or risk factors identified. Assessment: 23:27 General: Appears in no apparent distress. uncomfortable, Behavior is calm, cooperative, cp4 appropriate for age. Pain: Complains of pain in left jaw and left ear. Neuro: Level of Consciousness is awake, alert, obeys commands, Oriented to person, place, time, situation. Cardiovascular: Patient's skin is warm and dry. Cardiovascular: Rhythm is sinus tachycardia. Respiratory: Airway Respiratory effort is even, unlabored. GI: No signs and/or symptoms were reported involving the gastrointestinal system. : No signs and/or symptoms were reported regarding the genitourinary system. EENT: Parent/caregiver reports the patient having pain in left jaw and left ear. Derm: No signs and/or symptoms reported regarding the dermatologic system. Musculoskeletal: No signs and/or symptoms reported regarding the musculoskeletal system. 07/12 01:16 Reassessment: Patient and/or family updated on plan of care and expected duration. Pain vc1 level reassessed. Patient is alert, oriented x 3, equal unlabored respirations, skin warm/dry/pink. Patient states feeling better. Patient states symptoms have improved. Vital Signs: 07/11 22:28 BP 123 / 93; Pulse 103; Resp 20; Temp 98.5(TE); Pulse Ox 100% on R/A; Weight 80.74 kg kl (R); Height 5 ft. 6 in. ; Pain 05/21; 12 01:16 BP 142 / 84; Pulse 85; Resp 18; Pulse Ox 100% ; vc1 01:59 BP 135 / 76; Pulse 85; Resp 18; Pulse Ox 100% ; cp4 07/11 22:28 Body Mass Index 28.73 (80.74 kg, 167.64 cm) 07/11 22:28 Pain Scale: Adult Willmar Coma Score: 18:41 Eye Response: spontaneous(4). Motor Response: obeys commands(6). Verbal Response: sp4 oriented(5). Total: 15. ED Course: 07/11 22:22 Patient arrived in ED. im 22:31 Triage completed. kl 22:33 Elliot Bain MD is Attending Physician. sp4 23:27 Bed in low position. Call light in reach. Side rails up X 1. cp4 23:27 No provider procedures requiring assistance completed. Inserted saline lock: 22 gauge cp4 in right hand, using aseptic technique. Inserted saline lock: 22 gauge in left forearm, using aseptic technique. 23:33 Jocelin Donald is Primary Nurse. cp4 07/12 00:12 CT Facial Bones W/ Con \T\ Mpr In Process Unspecified. EDMS 02:00 Provided Education on: dental caries. cp4 02:00 intact, bleeding controlled, No redness/swelling at site. Pressure dressing applied. cp4 02:01 Arm band placed on right wrist. Patient placed in waiting room. cp4 Administered Medications: 07/11 23:29 Drug: Ketorolac IVP 30 mg IVP once Route: IVP; Site: right hand; cp4 07/12 01:41 Follow up: Response: No adverse reaction; Pain is decreased cp4 07/11 23:30 Drug: morphine IVP or IV 4 mg IVP once over 4 mins Route: IVP; Infused Over: 4 mins; cp4 Site: right hand; 07/12 01:41 Follow up: Response: No adverse reaction; Pain is decreased cp4 07/11 23:30 Drug: NS 0.9% IV 1000 ml IV at 1000 ml once; to be given as a bolus over 60 minutes cp4 Route: IV; Rate: 1000 ml; Site: right hand; 07/12 01:41 Follow up: IV Status: Completed infusion cp4 07/11 23:30 Drug: Rocephin - Rocephin (cefTRIAXone) IVPB 1 grams IVPB once over 30 mins; (mix in 50 cp4 mL NS) Route: IVPB; Infused Over: 30 mins; Site: right hand; 07/12 00:00 Follow up: IV Status: Completed infusion cp4 01:48 Drug: HYDROcodone-acetaminophen PO 5 mg-325 mg 2 tabs PO once Route: PO; cp4 01:59 Follow up: Response: No adverse reaction cp4 01:49 Drug: Cephalexin PO 500 mg PO once Route: PO; cp4 01:59 Follow up: Response: No adverse reaction cp4 Medication: 07/11 23:27 VIS not applicable for this client. cp4 Outcome: 07/12 01:41 Discharge ordered by . sp4 02:00 Discharged to home ambulatory, cp4 02:00 Condition: stable 02:00 Discharge instructions given to patient, Instructed on discharge instructions, follow up and referral plans. medication usage, Demonstrated understanding of instructions, follow-up care, medications, Prescriptions given X 3, 02:03 Patient left the ED. cp4 Signatures: Dispatcher [employer] Beatriz Muniz, RN RN Bev Davenport RN RN vc1 Elliot Bain MD MD sp4 Terri Mena Christina cp4
[2024-07-12] MEDS ORDERED: CEPHALEXIN 250 MG CAP ONE (01:45)
[2024-07-12] MEDS ORDERED: HYDROCODONE/APAP 5/325 MG TAB ONE (01:46)
--- NOTE | 2024-07-12 06:40 | RAD REPORT ---
EXAM: CT Maxillofacial With Intravenous Contrast CLINICAL HISTORY: The patient is 28 years old and is Female; facial swelling left TECHNIQUE: Axial computed tomography images of the face with intravenous contrast. Sagittal and c oronal reformatted images were created and reviewed. This CT exam was performed using one or more of the following dose reduction techniques: automated exposure control, adjustment of the mA and/or kV according to patient size, and/or use of iterative reconstruction technique. COMPARISON: No relevant prior studies available. FINDINGS: Bones/joints: No acute fracture. Soft tissues: Unremarkable. Orbits: Unremarkable. Sinuses: Unremarkable. No air-fluid levels. IMPRESSION: No acute fracture. Electronically signed by: Abilio Alford MD 07/12/2024 01:19 AM [facility] 8 Due to temporary technical issues with the PACS/[employer] reporting system, reports are being marcellus d by the in-house radiologist without review as a courtesy to ensure prompt reporting the interpreting radiologist is fully responsible for the content of the report. Transcribed Date/Time: 07/12/2024 6:39 AM
== END 2024-07-12 02:03 | disposition home or self-care (01) ==
LOC: ER 22:20
DX: K02.9 Dental caries, unspecified (principal); K04.01 Reversible pulpitis
CPT/HCPCS: 96365; 96361; 85025; 36415; 80053; 70487; 76377; 96375; 99284; Q9967; J7030; J0696

== ENCOUNTER 2024-11-24 14:28 | Emergency (ER) | payer BC ==
[2024-11-24] MEDS ORDERED: LEVETIRACETAM 500 MG/5 ML VIAL IV ONE (16:23)
[2024-11-24] MEDS ORDERED: ONDANSETRON 4 MG/2 ML VIAL ONE ×2 (16:23→17:46)
[2024-11-24] MEDS ORDERED: NA CHLORIDE 0.9% 1,000 ML ONE (16:23)
[2024-11-24] MEDS ORDERED: KETOROLAC 30 MG/ML INJ ONE (16:23)
[2024-11-24] MEDS ORDERED: NA CHLORIDE 0.9% 100 ML ONE (16:24)
[2024-11-24 16:29] LABS: Absolute Basophils 0.1 K/uL (0-0.5); Absolute Lymphocytes (CBC) 1.1 K/uL (0.7-4.9); Absolute Monocytes 0.3 K/uL (0.1-1.3); Absolute Neutrophil 4.8 K/uL (1.8-8.0); Basophils % 0.8 % (0-1.3); Eosinophils % 0.6 % (0-4.4); Hematocrit 36.9 % (36.0-45.0); Hemoglobin 12.1 g/dL (12.0-15.0); Lymphocytes % 16.9 % (15.3-44.8); MCH 23.9 pg (27.0-35.0); MCHC 32.8 g/dL (32.0-36.0); MCV 72.9 fL (80-100); MPV 8.4 fL (7.6-11.3); Monocytes % 4.8 % (3.3-12.3); Neutrophils % 76.9 % (41.7-73.7); Nucleated Red Blood Cells % 0.1 % (0-0); Platelets 245 thou/uL (152-406); RBC Red Blood Cell Count 5.06 M/uL (3.86-4.86); Red Cell Distribution Width 15.1 % (12.1-15.2)
[2024-11-24 16:30] LABS: Urine Bilirubin NEGATIVE (Negative); Urine Blood Negative (Negative); Urine Clarity Clear (Clear); Urine Color Light-Yellow (Yellow); Urine Glucose NEGATIVE (Negative); Urine Ketones NEGATIVE (Negative); Urine Microscopic Reflex YN NO UMIC; Urine Nitrite NEGATIVE (Negative); Urine Protein NEGATIVE (Negative); Urine Urobilinogen Normal (Normal); Urine pH 6.5 (5.0-7.0)
[2024-11-24 16:44] LABS: Albumin 3.7 g/dL (3.4-5.0); Albumin/Globulin Ratio 0.8 (1.1-1.8); Anion Gap 5.5 mEq/L (5.0-15.0); Bilirubin Total 0.4 mg/dL (0.2-1.0); Globulin 4.6 g/dL (2.3-3.5); Potassium 3.5 mEq/L (3.5-5.1); Protein, Total 8.3 g/dL (6.4-8.2)
--- NOTE | 2024-11-24 17:23 | RAD REPORT ---
EXAMINATION: CT ABDOMEN AND PELVIS WITH CONTRAST CLINICAL INDICATION: ABD PAIN TECHNIQUE: CT abdomen and pelvis was performed, after the administration of IV contrast, as per [facility] protocol. Axial, sagittal and coronal reconstructions were obtained. One or more of the following dose reduction techniques were used: Automated exposure control, adjustment of the mA and k V according to patient size, and iterative reconstruction. Unless otherwise specified, incidental findings do not require dedicated imaging follow-up. COMPARISON: 05/22/2024 FINDINGS: LOWER CHEST: The visualized lung bases are clear. LIVER: Normal in size and contour. No focal lesion. Cholecystectomy clips. SPLEEN: Normal size. No focal lesion. PANCREAS: No mass, ductal dilation, or radha-pancreatic fluid. ADRENALS: Normal; no mass. KIDNEYS: Normal size and contour. No hydronephrosis. GASTROINTESTINAL TRACT: No evidence of free air, significant intra-abdominal free fluid, bowel obstru ction or abscess. Mild fecalization of distal small bowel loops present. APPENDIX: Normal appendix. LYMPH NODES: No lymphadenopathy. MUSCULOSKELETAL: No acute or suspicious osseous abnormality. IMPRESSION: No acute or concerning abnormalities seen in the abdomen or pelvis.
--- NOTE | 2024-11-24 18:36 | EDPHYS ---
Physician Documentation [facility] Name: Cheyanne Lopes Age: 29 yrs Sex: Female : 1995 Arrival Date: 11/24/2024 Time: 14:28 Bed 26 Private MD: ED Physician Azeal Santizo HPI: 11/24 15:09 This 29 yrs old Black Female presents to ER via Ambulatory with complaints of Flu kb Symptoms. 15:09 Patient is a 29-year-old female who presents for nausea, vomiting, diarrhea and kb abdominal pain that started 4 days ago. States she has not been able to keep anything down and she has been lightheaded recently. Came in today because she had 2 seizures this morning, last 1 around 10 AM. States last seizure prior to today was a few months ago. Reports she has been taking her medications. Denies fever.. 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 Historical: - Allergies: 15:06 No Known Allergies; iw - Home Meds: 15:06 Trileptal 150 mg Oral tab [Active]; carvedilol 6.25 mg Oral tab 1 tab 2 times per day iw [Active]; diclofenac sodium 75 mg Oral TbEC 1 tab 2 times per day [Active]; hydroxyzine HCl 50 mg Oral tab 1 tab [Active]; oxcarbazepine 150 mg Oral tab 2 times per day [Active]; Risperdal 2 mg Oral tab 1 tab once daily [Active]; Keppra Oral 750 mg for Seizure Disorder [Active]; 18:46 Chemo pills [Active]; Valtrex 500 mg Oral tab 1 tab 2 times per day [Active]; kj2 - PMHx: 15:05 breast cancer (hysterectomy); Depression; Anemia; Seizure; High Blood Pressure; iw - PSHx: 15:05 Appendectomy; Cholecystectomy; hysterectomy; iw - Immunization history:: Adult Immunizations unknown. - Infectious Disease History:: Denies. - Social history:: Smoking status: Patient denies any tobacco usage or history of. ROS: 17:47 Constitutional: As per HPI kb Exam: 17:47 Constitutional: This is a well developed, well nourished patient who is awake, alert, kb and in no acute distress. Head/Face: Normocephalic, atraumatic. ENT: Moist Mucous membranes Cardiovascular: Regular rate Respiratory: Respirations even and unlabored. No increased work of breathing. Talking in full sentences Skin: Warm, dry with normal turgor. Normal color. MS/ Extremity: Pulses equal, no cyanosis. Neurovascular intact. Full, normal range of motion. Neuro: Awake and alert, GCS 15, oriented to person, place, time, and situation. 17:47 Abdomen/GI: Inspection: abdomen appears normal, Bowel sounds: normal, Palpation: soft, in all quadrants, mild abdominal tenderness, in the left upper quadrant and left lower quadrant, Vital Signs: 15:05 BP 137 / 98; Pulse 65; Resp 19; Pulse Ox 100% on R/A; Weight 79.38 kg; Height 5 ft. 6 iw in. ; Pain 9/10; 16:40 BP 131 / 76; Pulse 67; Resp 20; Pulse Ox 100% ; kj2 17:37 BP 107 / 66; Pulse 63; Resp 20; Pulse Ox 100% on R/A; kj2 18:44 BP 114 / 72; Pulse 68; Resp 18; Temp 98; Pulse Ox 100% on R/A; kj2 19:32 BP 116 / 72; Pulse 64; Resp 20; Temp 98; Pulse Ox 100% ; kj2 15:05 Body Mass Index 28.25 (79.38 kg, 167.64 cm) iw 15:05 Pain Scale: Adult iw MDM: 14:35 Medical Screening Exam initiated kb 17:47 Differential diagnosis: gastroenteritis, dehydration, abnormal electrolytes. Data kb reviewed: vital signs, nurses notes. 18:35 Counseling: I had a detailed discussion with the patient and/or guardian regarding the kb historical points, exam findings, and any diagnostic results supporting the discharge/admit diagnosis, lab results, radiology results, the need for outpatient follow up, a family practitioner, to return to the emergency department if symptoms worsen or persist or if there are any questions or concerns that arise at home. 11/24 15:09 Order name: CBC with Diff; Complete Time: 16:48 kb 11/24 15:09 Order name: CMP; Complete Time: 16:48 kb 11/24 15:09 Order name: Lipase; Complete Time: 16:48 kb 11/24 15:09 Order name: Test, Urine; Complete Time: 16:33 kb 11/24 15:09 Order name: Urinalysis w/ reflexes; Complete Time: 16:33 kb 11/24 15:09 Order name: CT Abd/Pelvis - IV Contrast Only; Complete Time: 17:29 kb 11/24 15:09 Order name: IV Saline Lock; Complete Time: 16:11 kb 11/24 15:09 Order name: Labs collected and sent; Complete Time: 16:11 kb 11/24 17:47 Order name: PO challenge; Complete Time: 18:43 kb Administered Medications: 16:34 Drug: TORadol - Ketorolac IVP 15 mg IVP once Route: IVP; Site: left antecubital; iw 17:44 Follow up: Response: No adverse reaction kj2 16:34 Drug: Ondansetron IVP 4 mg IVP once; over 2 minutes Route: IVP; Site: left antecubital; iw 17:44 Follow up: Response: No adverse reaction kj2 16:34 Drug: NS 0.9% IV 1000 ml IV at 1 bolus Per protocol; to be given as a bolus over 60 iw minutes Route: IV; Rate: 1 bolus; Site: left antecubital; 17:44 Follow up: IV Status: Completed infusion kj2 16:34 Drug: Keppra IV 1000 mg IV at calculated rate once Route: IV; Rate: calculated rate; iw Site: left antecubital; 18:44 Follow up: Response: No adverse reaction; IV Status: Completed infusion; IV Intake: kj2 100ml 17:49 Drug: Ondansetron IVP 4 mg IVP once; over 2 minutes Route: IVP; Site: left antecubital; kj2 18:43 Follow up: Response: No adverse reaction kj2 Disposition: 20:06 Co-signature as Attending Physician, Azael Santizo MD I reviewed the patient's care rt provided by the Advanced Practice Provider and agree with the diagnosis and treatment plan. Disposition Summary: 11/24/24 18:35 Discharge Ordered Notes: Location: Home kb Condition: Stable kb Diagnosis - Other seizures kb - Nausea with vomiting, unspecified kb - Diarrhea, unspecified kb Followup: kb - With: Emergency Department - When: As needed - Reason: Worsening of condition Followup: kb - With: Private Physician - When: 2 - 3 days - Reason: Recheck today's complaints, Continuance of care, Re-evaluation by your physician Discharge Instructions: - Discharge Summary Sheet kb - Food Choices to Help Relieve Diarrhea, Adult kb - Viral Gastroenteritis, Adult, Kcry-ya-Gled kb Forms: - Medication Reconciliation Form kb - Antibiotic Education kb - Prescription Opioid Use kb - Patient Portal Instructions kb - Leadership Thank You Letter kb - Work release form kj2 Prescriptions: - ondansetron 4 mg Oral Tablet,disintegrating - take 1 tablet ORAL route every 6 hours As needed; 12 tablet; Refills: 0, kb Product Selection Permitted Signatures: Dispatcher [employer] EDMS Tila Bowles, ADULT EDUCATION MANAGER-C ADULT EDUCATION MANAGER-Lisa Nguyen, RN RN iw Azael Santizo MD MD rt Eneida Cortes, MINE RN kj2 Corrections: (The following items were deleted from the chart) 15: 15:09 CBC+H.LAB.BRZ ordered. EDMS EDMS 15: 15:09 COMPREHENSIVE METABOLIC PANEL+C.LAB.BRZ ordered. EDMS EDMS 15: 15:09 LIPASE+C.LAB.BRZ ordered. EDMS EDMS 15:09 15:09 Test, Urine+UC.LAB.BRZ ordered. EDMS EDMS 15:09 15:09 Urinalysis+U.LAB.BRZ ordered. EDMS EDMS
--- NOTE | 2024-11-24 18:36 | ER ---
Nurse's Notes [facility] Name: Cheyanne Lopes Age: 29 yrs Sex: Female : 1995 Arrival Date: 11/24/2024 Time: 14:28 Bed 26 Private MD: Diagnosis: Other seizures;Nausea with vomiting, unspecified;Diarrhea, unspecified Presentation: 11/24 15:03 Chief complaint: Patient states: vomiting, dizzy , chest pains , had 2 seizures this iw morning. 15:08 Coronavirus screen: Client presents with at least one sign or symptom that may indicate iw coronavirus-19. Ebola Screen: No symptoms or risks identified at this time. Initial Sepsis Screen: Does the patient meet any 2 criteria? No. Patient's initial sepsis screen is negative. Does the patient have a suspected source of infection? No. Patient's initial sepsis screen is negative. Risk Assessment: Do you want to hurt yourself or someone else? Patient reports no desire to harm self or others. Onset of symptoms was November 20, 2024. 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 kj2 Historical: - Allergies: 15:06 No Known Allergies; iw - Home Meds: 15:06 Trileptal 150 mg Oral tab [Active]; carvedilol 6.25 mg Oral tab 1 tab 2 times per day iw [Active]; diclofenac sodium 75 mg Oral TbEC 1 tab 2 times per day [Active]; hydroxyzine HCl 50 mg Oral tab 1 tab [Active]; oxcarbazepine 150 mg Oral tab 2 times per day [Active]; Risperdal 2 mg Oral tab 1 tab once daily [Active]; Keppra Oral 750 mg for Seizure Disorder [Active]; 18:46 Chemo pills [Active]; Valtrex 500 mg Oral tab 1 tab 2 times per day [Active]; kj2 - PMHx: 15:05 breast cancer (hysterectomy); Depression; Anemia; Seizure; High Blood Pressure; iw - PSHx: 15:05 Appendectomy; Cholecystectomy; hysterectomy; iw - Immunization history:: Adult Immunizations unknown. - Infectious Disease History:: Denies. - Social history:: Smoking status: Patient denies any tobacco usage or history of. Screenin:15 [facility] ED Fall Risk Assessment (Adult) History of falling in the last 3 months, iw including since admission No falls in past 3 months (0 pts) Confusion or Disorientation No (0 pts) Intoxicated or Sedated No (0 pts) Impaired Gait No (0 pts) Mobility Assist Device Used No (0 pt) Altered Elimination No (0 pt) Score/Fall Risk Level 0 - 2 = Low Risk Oriented to surroundings, Maintained a safe environment. Abuse screen: Denies threats or abuse. Denies injuries from another. 18:45 Nutritional screening: No deficits noted. Tuberculosis screening: No symptoms or risk kj2 factors identified. Assessment: 16:35 General: Appears in no apparent distress. Behavior is calm, cooperative. Pain: iw Complains of pain in abdomen. Neuro: Level of Consciousness is awake, alert, obeys commands, Oriented to person, place, time, situation. Cardiovascular: Patient's skin is warm and dry. Respiratory: Respiratory effort is even, unlabored, Respiratory pattern is regular, symmetrical. GI: Abdomen is non-distended, Reports upper abdominal pain, nausea, vomiting. Derm: Skin is intact, is healthy with good turgor. Musculoskeletal: Range of motion: intact in all extremities. 17:37 Reassessment: Patient appears in no apparent distress at this time. Patient and/or kj2 family updated on plan of care and expected duration. Pain level reassessed. Patient is alert, oriented x 3, equal unlabored respirations, skin warm/dry/pink. 18:44 Reassessment: Patient appears in no apparent distress at this time. Patient and/or kj2 family updated on plan of care and expected duration. Pain level reassessed. Patient is alert, oriented x 3, equal unlabored respirations, skin warm/dry/pink. 19:31 Reassessment: Patient appears in no apparent distress at this time. Patient and/or kj2 family updated on plan of care and expected duration. Pain level reassessed. Patient is alert, oriented x 3, equal unlabored respirations, skin warm/dry/pink. Vital Signs: 15:05 BP 137 / 98; Pulse 65; Resp 19; Pulse Ox 100% on R/A; Weight 79.38 kg; Height 5 ft. 6 iw in. ; Pain 9/10; 16:40 BP 131 / 76; Pulse 67; Resp 20; Pulse Ox 100% ; kj2 17:37 BP 107 / 66; Pulse 63; Resp 20; Pulse Ox 100% on R/A; kj2 18:44 BP 114 / 72; Pulse 68; Resp 18; Temp 98; Pulse Ox 100% on R/A; kj2 19:32 BP 116 / 72; Pulse 64; Resp 20; Temp 98; Pulse Ox 100% ; kj2 15:05 Body Mass Index 28.25 (79.38 kg, 167.64 cm) iw 15:05 Pain Scale: Adult iw ED Course: 14:30 Patient arrived in ED. im 14:34 Tila Bowles FNP-C is PHCP. kb 14:34 Azael Santizo MD is Attending Physician. kb 15:08 Triage completed. iw 16:15 Initial lab(s) drawn, by me, sent to lab. Inserted saline lock: 20 gauge in left iw antecubital area, using aseptic technique. Blood collected. Flushed with 10 mL NS. 16:18 Lisa Yepez, RN is Primary Nurse. iw 16:35 Patient has correct armband on for positive identification. Pulse ox on. NIBP on. iw 16:45 Arm band placed on Patient placed in an exam room. kj2 16:45 Provided Education on: call light. kj2 17:10 CT Abd/Pelvis - IV Contrast Only In Process Unspecified. EDMS 18:47 No provider procedures requiring assistance completed. IV discontinued, intact, kj2 bleeding controlled, No redness/swelling at site. Pressure dressing applied. Administered Medications: 16:34 Drug: TORadol - Ketorolac IVP 15 mg IVP once Route: IVP; Site: left antecubital; iw 17:44 Follow up: Response: No adverse reaction kj2 16:34 Drug: Ondansetron IVP 4 mg IVP once; over 2 minutes Route: IVP; Site: left antecubital; iw 17:44 Follow up: Response: No adverse reaction kj2 16:34 Drug: NS 0.9% IV 1000 ml IV at 1 bolus Per protocol; to be given as a bolus over 60 iw minutes Route: IV; Rate: 1 bolus; Site: left antecubital; 17:44 Follow up: IV Status: Completed infusion kj2 16:34 Drug: Keppra IV 1000 mg IV at calculated rate once Route: IV; Rate: calculated rate; iw Site: left antecubital; 18:44 Follow up: Response: No adverse reaction; IV Status: Completed infusion; IV Intake: kj2 100ml 17:49 Drug: Ondansetron IVP 4 mg IVP once; over 2 minutes Route: IVP; Site: left antecubital; kj2 18:43 Follow up: Response: No adverse reaction kj2 Medication: 18:45 VIS not applicable for this client. kj2 Intake: 18:44 IV: 100ml; Total: 100ml. kj2 Outcome: 18:35 Discharge ordered by . stan 18:48 Discharged to home ambulatory, kj2 18:48 Condition: stable 18:48 Discharge instructions given to patient, Instructed on discharge instructions, follow up and referral plans. Demonstrated understanding of instructions, follow-up care, 19:32 Patient left the ED. kj2 Signatures: Dispatcher [employer] EDTila Martinez, SONIA-C TECHNICAL FELLOW-Lisa Nguyen, RN RN iw Terri Mena Krystal, RN RN kj2 Corrections: (The following items were deleted from the chart) 15:08 15:05 BP 137 / 98; Pulse 65bpm; Resp 19bpm; Pulse Ox 100% RA; iw iw
[2024-11-24 19:44] VITALS: O2SAT 100
[2024-11-24 19:55] VITALS: TEMP 98
[2024-11-24 19:56] VITALS: BP 116/72
== END 2024-11-24 19:32 | disposition home or self-care (01) ==
LOC: ER 14:28
DX: G40.89 Other seizures (principal); R19.7 Diarrhea, unspecified; Z85.3 Personal history of malignant neoplasm of breast
CPT/HCPCS: 85025; 36415; 81025; 81003; 83690; 80053; 74177; J1953; J2405 ×2; J7030